=== PATIENT | female | born 1975 | race Caucasian/White ===

== ENCOUNTER 2017-10-26 00:59 | Emergency (ER) | payer MEDICAID, SELFPAY ==
[2017-10-26 01:02] VITALS: BP 104/85; PULSE 71; RESP 18; TEMP 36.6; O2SAT 99; BMI 29.2
--- NOTE | 2017-10-26 01:46 | CT_ITS ---
STUDY: CT ABDOMEN AND PELVIS WITH CONTRAST REASON FOR EXAM: Female, 42 years old. Lower quadrant pain since last night. RADIATION DOSAGE (If Supplied By Facility): CTDIvol = ( 19.94 ) mGy, DLP = ( 1023.27 ) mGycm TECHNIQUE: Transaxial images were obtained from the dome of the diaphragm to the symphysis pubis without oral contrast. 100ML ml of Isovue 300 contrast was administered. Sagittal and coronal images were reconstructed. Individualized dose optimization techniques were used for this CT. COMPARISON: None. FINDINGS: The visualized lung bases are unremarkable. The visualized portions of the heart are within normal limits. Normal liver. Normal gallbladder and extrahepatic biliary system. Normal spleen. Normal pancreas. The right adrenal gland is unremarkable. There are nodular changes in the left adrenal gland. Normal right kidney. Normal left kidney. Normal visualized stomach. There are nonspecific fluid-filled small bowel loops. There is no evidence of small bowel obstruction. There is fecal retention. The appendix is visualized and appears normal. Normal abdominal aorta. Normal inferior vena cava. Normal retroperitoneum. Normal urinary bladder. The uterus is retroverted and somewhat heterogeneous better evaluated by ultrasound. There is small amount of free fluid in the pelvis. There is a very small umbilical hernia containing fat. There are degenerative changes in the lower lumbar spine at the level of L5-S1. CT/Abdomen/Pelvis WITH Contrast IMPRESSION: Nonspecific fluid-filled small bowel loops without evidence of small bowel obstruction. No evidence of acute appendicitis. Retroverted somewhat heterogeneous uterus with small amount of free fluid in the pelvis. Pelvic ultrasound might be of value if clinically indicated. Electronically Signed: Karan Mchugh MD at 3:32 EDT Tel , Service support ,
--- NOTE | 2017-10-26 01:48 | ED.DCSUM_ITS ---
- ER Visit Summary Date of Service: 10/26/17 Chief Complaint: Stomach hurts History of Present Illness: The patient is a 42 F with right side abdominal pain. The pain started over her generalized right side and then migrated to her right lower quadrant starting yesterday evening at 5 PM. Pain is worse with moving and touch. No fever. No urinary symptoms. No HELICOPTER PILOT symptoms. She is finishing her menstrual period now. Never had this before. Physical Examination: Patient is afebrile and vital signs are unremarkable. She is alert and oriented. No acute distress. Heart regular. Abdomen tender in the right lower quadrant. No guarding or rebound. No CVA tenderness. Skin appears normal in color without jaundice or pallor. Test Results: We will check labs, urinalysis, and CT abdomen pelvis. Emergency Department Course and Treatment: Patient declined pain medicine while awaiting results. Hemoglobin 11.6. CMP, lipase, urinalysis, test all unremarkable. CT was done and showed fluid-filled small bowel loops without sign of obstruction. No sign of appendicitis. She does have a heterogenous retroverted uterus. I do not believe this is causing her symptoms and I did advise that she can follow -up as an outpatient for this. Patient required no pain medicine. She had no further or new symptoms. I believe she is appropriate for outpatient follow-up. I did advise her that things can change. Tests can change. If she has new or worsening symptoms, she should return for reevaluation. Otherwise call her doctor in the morning for follow-up. Treatment Plan: As above Disposition: Discharged Impression: 1. Right sided abdominal pain This note was generated with [employer] dictation software. It may contain incorrect words, spelling, and punctuation that were not noted in review of the chart prior to signing ED Disposition - Plan for ED Patient: Chief Complaint: Abd Pain Referrals: Mihir Glover MD [Primary Care Provider] -
[2017-10-26 02:12] LABS: Absolute Lymphocyte Count 2.83 X10^3/ul (0.83-4.51); Absolute Neutrophil Count 5.5 X10^3/uL (2.0-7.7); Basophil# 0.02 X10^3/uL; Basophil% 0.2 % (0-1); Eosinophil# 0.08 X10^3/uL; Eosinophils% 0.9 % (0-5); Hematocrit 34.9 % (37-47); Hemoglobin 11.6 g/dl (12.0-15.0); Lymphocyte # 2.83 X10^3/ul (4.0); Lymphocyte % 31.3 % (19-41); Mean Corp Hgb Conc 33.2 g/gl (32-36); Mean Corpuscular Hgb 27.7 pg (27.0-32.0); Mean Corpuscular Volume 83.3 fL (81-99); Mean Platelet Vol. 12.6 fl (6.2-12.0); Monocyte# 0.59 X10^3/uL; Monocyte% 6.5 % (0-10); Neutrophil # 5.52 X10^3/uL (2.7-7.7); POSITIVE COUNT NO; POSITIVE DIFFERENTIAL NO; POSITIVE MORPHOLOGY NO; Platelet Count 151 K/mm3 (150-450); RBC Distribution Width CV 14.5 % (11.6-14.6); Red Blood Count 4.19 M/mm3 (4.2-5.4); White Blood Count 9.1 K/mm3 (4.4-11.0)
[2017-10-26 02:16] LABS: Bacteria 0 SEEN /hpf (None Seen); Mucous, Urine 0 SEEN /hpf (<or=2+); Red Blood Cells-Urine 0 SEEN /hpf (0-5)
[2017-10-26 02:17] LABS: Color, Urine Yellow (Yellow); Glucose, Dipstick Normal (Normal); Leukocyte Esterase-Dipstick 25 /ul (Negative); Nitrite-Dipstick Negative (Negative); Occult Blood-Urine 25 /ul (Negative); Protein-Dipstick 15 mg/dl (Negative); Specific Gravity, Urine 1.025 (1.002-1.030); Urine Bilirubin Dipstick Negative (Negative); Urine Clarity Sl. Cloudy (Clear); Urine Urobilinogen 1 mg/dl (Normal)
[2017-10-26 02:19] LABS: Ketone-Dipstick 150 mg/dl (Negative)
[2017-10-26 02:23] LABS: AST(SGOT) 13 U/L (15-37); Alanine Aminotransfer ALT/SGPT 16 U/L (13-56); Albumin, Serum 3.3 g/dL (3.2-5.0); Alkaline Phosphatase 73 U/L (45-117); Anion Gap 6 (5-15); BUN 15 mg/dL (7-18); BUN/Creat Ratio 17.1 RATIO (10-20); Bilirubin, Direct 0.11 mg/dL (0.00-0.30); Calcium,Total 8.1 mg/dL (8.5-10.1); Chloride 109 mmol/L (98-107); Creatinine, Serum 0.88 mg/dL (0.55-1.02); EST Glomerular Filtration Rate 75 mL/min (>60); Est Glom Filt Rate - Afr Amer 91 mL/min (>60); Estimated Creatinine Clearance 80.99 ml/min; Globulin 2.9 g/dL (2.2-4.2); Glucose 76 mg/dL (74-106); Lipase 248 U/L (73-393); Potassium 3.7 mmol/L (3.5-5.1); Protein, Total 6.2 g/dL (6.4-8.2); Sodium Level 138 mmol/L (136-145)
[2017-10-26 02:23] LABS: Squamous Epithelial Cells - UA 10-25 SEEN /hpf (5-10); White Blood Cells 0-5 SEEN /hpf (0-5)
[2017-10-26 02:40] LABS: Pregnancy, Serum, hCG Quali. NEGATIVE Negative (0-9 Nonpreg)
--- NOTE | 2017-10-26 04:40 | ED.DEP ---
ED Disposition - Plan for ED Patient: Chief Complaint: Abd Pain Instructions: Abdominal Pain Referrals: Mihir Glover MD [Primary Care Provider] - Additional Instructions: Follow-up with your doctor as an outpatient for a heterogenous uterus on CT
[2017-10-26 04:48] VITALS: BP 101/78; PULSE 68; RESP 16; O2SAT 96
== END 2017-10-26 04:49 | disposition home or self-care (01) ==
LOC: ED 02:15
PROVIDERS: Emergency Provider Emergency Medicine; Family Provider Internal Medicine; PCP Internal Medicine
DX: R10.31 Right lower quadrant pain (principal); I45.9 Conduction disorder, unspecified; I95.9 Hypotension, unspecified; Z95.0 Presence of cardiac pacemaker; Z72.0 Tobacco use
CPT/HCPCS: 74177; 80048; 80076; 81001; 83690; 84703; 85025; 99282; Q9967; A4216

== ENCOUNTER 2017-11-15 22:17 | Emergency (ER) | payer MEDICAID, SELFPAY ==
[2017-11-15 22:22] VITALS: BP 97/68; PULSE 96; RESP 22; TEMP 36.8; O2SAT 99; BMI 27.9
--- NOTE | 2017-11-15 22:33 | EKG12_ITS ---
Test Reason : CP Blood Pressure : / mmHG Vent. Rate : 060 BPM Atrial Rate : 060 BPM P-R Int : 164 ms QRS Dur : 172 ms QT Int : 500 ms P-R-T Axes : 088 260 074 degrees QTc Int : 500 ms AV dual-paced rhythm Biventricular pacemaker detected Abnormal ECG Confirmed by TYE ZELAYA, AYSE ([id number]), film or videotape editor ZIYAD WALTON ([id number]) on 11/18/2017 1:24:02 PM Referred By: BAYRON Confirmed By:AYSE GAMBLE MD
--- NOTE | 2017-11-15 22:48 | ED.VISSUMM ---
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 She is experienced prior symptoms when she had panic attack. She has no known coronary artery disease. She denies history of PE or DVT. She has no risk factors for either. She denies headache, visual, ocular auditory symptoms. She denies fever, chills or night sweats. The chest discomfort is not pleuritic. She states it is a tight sensation. She denies nausea, vomiting or diarrhea. She denies dysuria, frequency, urgency or hematuria. She denies leg pain, swelling or discoloration. Please read written note for complete detail Physical Examination: Vital signs remarkable for respiratory 22. After I entered the room and asked questions she began to cry. When asked why she was crying she states she gets nervous and has history of anxiety attacks. Asked if this is somewhat to prior anxiety attacks and she responded yes. Head is atraumatic normocephalic. Pupils are equal round reactive. Extraocular muscles are intact. TMs are pearly white with landmarks noted. Nares patent with no drainage. Posterior pharynx without erythema or exudate. Uvula is midline. There is no dysphonia or dysphasia. Trachea is midline. There is no stridor with auscultation of the neck. Heart is regular without murmur, gallop or rub. S1 and S2 are normal. Lungs are clear to auscultation with good movement of air bilaterally. There is no asymmetry, swelling, discoloration, leg vein distention, palpable cords or tenderness along the distribution of the deep venous system. She is alert oriented. She does appear anxious and is tearful. Test Results: EKG reveals a AV dual-chamber paced rhythm with a rate of 60. Monitor reveals a paced rhythm with a rate of 60. Emergency Department Course and Treatment: Will obtain EKG to determine if there is any ischemic changes. Will treat with Ativan p.o. Treatment Plan: Observe and reevaluate. If suspicion that this represents a panic attack will discharge with appropriate home-going instructions Disposition: Discharge to home with family Impression: Chest pain secondary to anxiety attack This note was generated with [employer] dictation software. It may contain incorrect words, spelling, and punctuation that were not noted in review of the chart prior to signing ED Disposition - Plan for ED Patient: Disposition: Home or Assisted Living Chief Complaint: Chest Other Instructions: ED Panic Attack Referrals: Mihir Glover MD [Primary Care Provider] - As Needed Counseling,Center [GROUP OF PHYSICIANS] - 1-2 Days if not improving
[2017-11-15] MEDS: LORazepam 1 MG Tablet PO (22:51)
[2017-11-15 23:21] VITALS: PULSE 61; RESP 20; O2SAT 99
[2017-11-15 23:33] VITALS: RESP 18
== END 2017-11-15 23:34 | disposition home or self-care (01) ==
PROVIDERS: Emergency Provider Emergency Medicine; Family Provider Internal Medicine; PCP Internal Medicine
DX: F41.0 Panic disorder [episodic paroxysmal anxiety] (principal); I45.9 Conduction disorder, unspecified; E66.9 Obesity, unspecified; Z68.27 Body mass index [BMI] 27.0-27.9, adult; Z95.0 Presence of cardiac pacemaker; Z72.0 Tobacco use
CPT/HCPCS: 93005; 99284

== ENCOUNTER 2017-12-10 04:03 | Emergency (ER) | payer MEDICAID, SELFPAY ==
[2017-12-10 04:04] VITALS: BP 130/85; PULSE 68; RESP 14; TEMP 36.7; O2SAT 99; BMI 27.1
--- NOTE | 2017-12-10 04:17 | ED.VISSUMM ---
- ER Visit Summary Date of Service: 12/10/17 Chief Complaint: [] Patient's been having heart racing and night terror symptoms for the last 3 nights after she stopped smoking. She wakes up and feels trembling and gasping for air. She quit cold turkey. She is not take any nicotine replacement other than occasional vape History of Present Illness: The patient is a 42 F [] see above Physical Examination: [] Vital signs reviewed General: Well-nourished well-developed Head: Normocephalic atraumatic Eyes: Pupils equal round and reactive to light extraocular movements intact ENT: TMs clear no hemotympanum no trauma Neck: Nontender full range of motion Cardiovascular: Regular rate rhythm no murmurs normal S1-S2 Respiratory: No distress clear to auscultation bilaterally chest nontender Abdomen: Soft nontender nondistended normal bowel sounds no masses Back: Nontender no CVA tenderness Extremities: Nontender active range of motion ?4 extremities no trauma Skin: Normal color no trauma Neuro alert oriented cranial nerves II through XII intact normal strength sensation reflexes Test Results: [] Emergency Department Course and Treatment: [] Reassured. Given a dose of Benadryl. Will use the nicotine patch and discuss using medications with her doctor to help with the nicotine withdrawal Treatment Plan: [] Disposition: [] Impression: [] Nicotine withdrawal This note was generated with [employer] dictation software. It may contain incorrect words, spelling, and punctuation that were not noted in review of the chart prior to signing ED Disposition - Plan for ED Patient: Chief Complaint: General Illness Referrals: Mihir Glover MD [Primary Care Provider] -
--- NOTE | 2017-12-10 04:18 | ED.DEP ---
ED Disposition - Plan for ED Patient: Disposition: Home or Assisted Living Chief Complaint: General Illness Instructions: Coping with Smoking Withdrawal Referrals: Mihir Glover MD [Primary Care Provider] -
[2017-12-10] MEDS: DiphenhydrAMINE 25 MG Capsule 50 MG PO (04:41)
[2017-12-10 04:44] VITALS: RESP 16
== END 2017-12-10 04:44 | disposition home or self-care (01) ==
LOC: ED 04:27
PROVIDERS: Emergency Provider Emergency Medicine; Family Provider Internal Medicine; PCP Internal Medicine
DX: F17.203 Nicotine dependence unspecified, with withdrawal (principal)
CPT/HCPCS: 99283

== ENCOUNTER 2018-05-01 21:59 | Emergency (ER) | payer MEDICAID, SELFPAY ==
[2018-05-01 22:00] VITALS: BP 122/70; PULSE 70; RESP 18; TEMP 36.6; O2SAT 97; BMI 30.5
--- NOTE | 2018-05-01 23:22 | ED.DCSUM_ITS ---
- ER Visit Summary Date of Service: 05/01/18 Chief Complaint: Vomiting History of Present Illness: The patient is a 42 F patient reports that she broke her right ring finger this morning. [facility]. She reports that approximately an hour and a half after taking the Ultram she began vomiting. States that she has vomited 3 times. No blood in her emesis. No diarrhea. No abdominal pain. Patient denies sick contacts. Has not been camping out of the country. No possible bad food exposure. Does not drink well water. No recent antibiotic use. Physical Examination: Vitals: Stable. Afebrile. General: Well-nourished and well-developed. Head: Normocephalic atraumatic. Neck: Supple, no lymphadenopathy. No JVD. Nontender. Cardiovascular: Regular rate and rhythm. No murmurs. Respiratory: No respiratory distress. Clear to auscultation bilaterally. Abdominal: Soft, nontender, nondistended, normal bowel sounds. No guarding, rebound, or peritoneal signs. Back: Nontender. Extremities: Contusion, soft tissue swelling, and severe tenderness palpation over the right ring finger DIP joint. She is neurovascular intact distal this. Skin: Normal color, no rash. Neurologic: Alert and oriented ?3. Cranial nerves II through XII are intact. Normal strength and sensation. Psych: Normal affect. Emergency Department Course and Treatment: Patient was treated with Zofran. She had a new aluminum foam splint placed. She refused pain medications. Treatment Plan: Patient will be discharged with Zofran. Instructed to ice the area. Use Tylenol and/or ibuprofen for pain. Follow-up with your primary care physician 1-2 days if her vomiting is not improved. Follow-up with her orthopedic surgeon she was referred to in 1 week for another exam. Return to the emergency department for any worsening symptoms. Disposition: To home in improved and stable condition. Impression: 1. Vomiting from Ultram. 2. Right ring finger distal phalanx fracture. This note was generated with [employer] dictation software. It may contain incorrect words, spelling, and punctuation that were not noted in review of the chart prior to signing ED Disposition - Plan for ED Patient: Disposition: Home or Assisted Living Chief Complaint: Nausea/Vomiting Instructions: ED Nausea Vomiting Prescriptions: Ondansetron [Zofran Odt] 4 mg PO Q8H PRN PRN #10 tablet PRN Reason: Nausea Referrals: Mihir Glover MD [Primary Care Provider] - 1-2 Days if not improving
[2018-05-01] MEDS: Ondansetron ODT 4 MG Tablet PO (23:30)
[2018-05-01 23:38] VITALS: RESP 16
--- NOTE | 2018-05-01 23:39 | ED.RN ---
HOME PACK OF ZOFRAN GIVEN PER MD ORDER. REVIEWED D/C INSTRUCTIONS, FOLLOW UP CARE, PRESCRIPTIONS, AND S/S THAT WOULD WARRANT A RETURN TO THE ED WITH PT. PT VERBALIZED AN UNDERSTANDING AND DENIES FURTHER QUESTIONS FOR THIS RN. PT SKIN P/W/D, RESP EVEN AND UNLABORED, PT A&O X 3, NO DISTRESS NOTED. PT AMBULATED OUT OF ED, GAIT STEADY.
== END 2018-05-01 23:53 | disposition home or self-care (01) ==
LOC: ED 23:53
PROVIDERS: Emergency Provider Emergency Medicine; Family Provider Internal Medicine; PCP Internal Medicine
DX: R11.10 Vomiting, unspecified (principal); T40.4X5A Adverse effect of other synthetic narcotics, initial encounter; S62.634A Displaced fracture of distal phalanx of right ring finger, initial encounter for closed fracture; X58.XXXA Exposure to other specified factors, initial encounter; Z87.891 Personal history of nicotine dependence
CPT/HCPCS: 99283

== ENCOUNTER 2018-05-07 16:56 | Emergency (ER) | payer MEDICAID, SELFPAY ==
[2018-05-07 16:58] VITALS: BP 129/77; PULSE 86; RESP 16; TEMP 35.9; O2SAT 100; BMI 29.9
--- NOTE | 2018-05-07 17:13 | EKG12_ITS ---
Test Reason : ANXIETY Blood Pressure : / mmHG Vent. Rate : 062 BPM Atrial Rate : 062 BPM P-R Int : 140 ms QRS Dur : 172 ms QT Int : 498 ms P-R-T Axes : 054 248 052 degrees QTc Int : 505 ms Atrial-sensed ventricular-paced rhythm Biventricular pacemaker detected Abnormal ECG Confirmed by TYE ZELAYA, AYSE ([id number]), electronic news gathering editor ZIYAD WALTON ([id number]) on 05/09/2018 12:46:25 PM Referred By: DC Confirmed By:AYSE GAMBLE MD
[2018-05-07] MEDS: LORazepam 1 MG Tablet PO (17:32)
--- NOTE | 2018-05-07 18:18 | ED.VISSUMM ---
- ER Visit Summary Date of Service: 05/07/18 Chief Complaint: Panic attack History of Present Illness: The patient is a 42 F with a history of panic and anxiety. She presents with increasing anxiety today. It seems to happen when she was exercising. She has been depressed and gaining weight because she is eating more. She felt that she needed to work out today. She was running and felt her heart racing. She had a heart rate in the 130s. She felt palpitations and her heart racing. She stopped to rest, and she did not feel like her heart was returning to normal rate as fast as it should normally. She began breathing fast and her lips were numb and she had some tingling in her extremities. This happened within an hour prior to arrival. There was also noted that the patient has a history of third-degree AV block and has a defibrillator. She did not feel the defibrillator fire. Denies chest pain. Physical Examination: Afebrile and vital signs are normal. The patient is tearful and appears anxious. HEENT exam grossly unremarkable. Heart regular rate and rhythm. Lungs clear. Skin normal. Test Results: EKG showed a paced rhythm at a rate of 62. Emergency Department Course and Treatment: Patient symptoms are likely secondary to panic. She has a history of this. She was hyperventilating. It sounds like her heart rate was appropriate for her exercising. It is currently normal. I did check an EKG and it was unremarkable. She was treated with Ativan. On reevaluation, she is still somewhat tearful and anxious, but seems better. She would like to go home. I believe this is reasonable. She has Klonopin at home and will use it as needed. I advised that she could follow-up with her counselor for long-term management of panic, anxiety, and depression. There are other medical and nonmedical treatments. I also advised the patient that given that she had some palpitations while exercising, she should follow-up with her heart doctor. Return right away for any new or worsening issues. She had a recent echo and other cardiac testing which was unremarkable, and I do not believe she needs emergency admission. Treatment Plan: As above Disposition: Discharge Impression: 1. Panic attack This note was generated with [employer] dictation software. It may contain incorrect words, spelling, and punctuation that were not noted in review of the chart prior to signing ED Disposition - Plan for ED Patient: Chief Complaint: Anxiety Referrals: Mihir Glover MD [Primary Care Provider] -
--- NOTE | 2018-05-07 18:24 | ED.DEP ---
ED Disposition - Plan for ED Patient: Chief Complaint: Anxiety Instructions: ED Panic Attack Referrals: Mihir Glover MD [Primary Care Provider] -
[2018-05-07] MEDS: hydrOXYzine PAM 25 MG Capsule PO (19:00)
[2018-05-07 19:02] VITALS: BP 120/75; PULSE 66; RESP 18; O2SAT 98
== END 2018-05-07 19:04 | disposition home or self-care (01) ==
LOC: ED 17:18
PROVIDERS: Emergency Provider Emergency Medicine; Family Provider Internal Medicine; PCP Internal Medicine
DX: F41.0 Panic disorder [episodic paroxysmal anxiety] (principal); I44.2 Atrioventricular block, complete; Z95.810 Presence of automatic (implantable) cardiac defibrillator; Z87.891 Personal history of nicotine dependence
CPT/HCPCS: 93005; 99283

== ENCOUNTER 2018-11-09 13:12 | Emergency (ER) | payer MEDICAID, SELFPAY ==
[2018-11-09 13:13] VITALS: BP 144/86; PULSE 117; RESP 16; TEMP 36.8; O2SAT 98; BMI 29.0
--- NOTE | 2018-11-09 13:38 | EKG12_ITS ---
Test Reason : ABDOMINAL/CHEST PAIN Blood Pressure : / mmHG Vent. Rate : 111 BPM Atrial Rate : 111 BPM P-R Int : 128 ms QRS Dur : 166 ms QT Int : 406 ms P-R-T Axes : 066 252 070 degrees QTc Int : 552 ms Poor data quality, interpretation may be adversely affected Atrial-sensed ventricular-paced rhythm Biventricular pacemaker detected Abnormal ECG Confirmed by SERINA MCDONALD ([id number]), purchasing expeditor ALLA VALENTIN ([id number]) on 11/14/2018 12:57:39 PM Referred By: MIGUEL Confirmed By:SERINA MCDONALD
[2018-11-09] MEDS: 0.9% Normal Saline 1,000 ML 150 ML IV (13:50)
[2018-11-09] MEDS: LORazepam 2 MG/ML Syringe 0.5 MG IV ×2 (13:50→15:46)
[2018-11-09 13:55] LABS: Absolute Lymphocyte Count 1.54 X10^3/ul (0.83-4.51); Basophil# 0.02 X10^3/uL; Basophil% 0.3 % (0-1); Eosinophil# 0.03 X10^3/uL; Eosinophils% 0.4 % (0-5); Hematocrit 38.6 % (37-47); Hemoglobin 12.8 g/dl (12.0-15.0); Lymphocyte # 1.54 X10^3/ul (4.0); Mean Corp Hgb Conc 33.2 g/gl (32-36); Mean Corpuscular Hgb 26.9 pg (27.0-32.0); Mean Corpuscular Volume 81.3 fL (81-99); Mean Platelet Vol. 12.1 fl (6.2-12.0); Monocyte# 0.36 X10^3/uL; Monocyte% 5.1 % (0-10); Neutrophil # 5.04 X10^3/uL (2.7-7.7); Neutrophil % 72.1 % (47-70); Platelet Count 184 K/mm3 (150-450); RBC Distribution Width CV 14.3 % (11.6-14.6); RBC Distribution Width SD 42.5 fl (35.1-43.9); Red Blood Count 4.75 M/mm3 (4.2-5.4)
[2018-11-09 13:58] LABS: POSITIVE COUNT NO; POSITIVE DIFFERENTIAL NO; POSITIVE MORPHOLOGY NO
[2018-11-09 14:03] LABS: Internal QC Validated? YES +Cl - CLEAR BKGD; Pregnancy, Serum, hCG Quali. NEGATIVE Negative
[2018-11-09 14:11] LABS: AST(SGOT) 15 U/L (15-37); Alanine Aminotransfer ALT/SGPT 19 U/L (13-56); Albumin, Serum 3.6 g/dL (3.2-5.0); Alkaline Phosphatase 70 U/L (45-117); Anion Gap 7 (5-15); BUN 14 mg/dL (7-18); BUN/Creat Ratio 13.9 RATIO (10-20); Bilirubin, Direct 0.08 mg/dL (0.00-0.30); Calcium,Total 8.9 mg/dL (8.5-10.1); Chloride 107 mmol/L (98-107); Creatinine, Serum 1.01 mg/dL (0.55-1.02); EST Glomerular Filtration Rate 64 mL/min (>60); Est Glom Filt Rate - Afr Amer 77 mL/min (>60); Estimated Creatinine Clearance 75.06 ml/min; Globulin 3.3 g/dL (2.2-4.2); Glucose 123 mg/dL (74-106); Lipase 184 U/L (73-393); Potassium 3.6 mmol/L (3.5-5.1); Protein, Total 6.9 g/dL (6.4-8.2); Sodium Level 138 mmol/L (136-145)
[2018-11-09 14:35] VITALS: BP 123/83; PULSE 73; RESP 13; O2SAT 100
[2018-11-09 15:37] VITALS: BP 124/80; PULSE 72; RESP 16; O2SAT 98
--- NOTE | 2018-11-09 15:45 | ED.DCSUM_ITS ---
- ER Visit Summary Date of Service: 11/09/18 Chief Complaint: Epigastric pain History of Present Illness: The patient is a 43 F with epigastric burning after eating Portuguese food 3 days ago. Her pain is not improved with Tums or with Pepto. She states this has triggered her anxiety and she is having panic attacks. Past history is significant for third-degree block as a child and she does have a pacer. Physical Examination: Vital signs remarkable only for heart rate of 117. Patient sitting up on the side of the bed, tearful and anxious. Head and neck examination was unremarkable. Heart is tachycardic and regular. Lung sounds are clear. Abdomen is soft with minimal epigastric tenderness. No guarding or rebound. Test Results: EKG reveals patient spikes with a heart rate of 111. CBC is normal. Chemistry studies unremarkable. LFTs and lipase normal. test negative. Emergency Department Course and Treatment: Patient given IV fluids along with Ativan and Pepcid. On repeat evaluation she states this took the edge of her anxiety but she still feels quite anxious. She is given a second dose of Ativan. On repeat evaluation patient does feel significantly improved. She has Klonopin at home that she will continue. We will also start her on Pepcid at home. She has a follow-up appointment scheduled with her doctor's office on the . Treatment Plan: [] Disposition: Discharge Impression: 1. Gastritis 2. Anxiety This note was generated with [employer] dictation software. It may contain incorrect words, spelling, and punctuation that were not noted in review of the chart prior to signing ED Disposition - Plan for ED Patient: Disposition: Home or Assisted Living Instructions: Panic Attack, GASTRITIS vs. ULCER Prescriptions: Famotidine [Pepcid] 20 mg PO BID #28 tablet Referrals: Mihir Glover MD [Primary Care Provider] - Keep Emili appointment
== END 2018-11-09 16:20 | disposition home or self-care (01) ==
PROVIDERS: Emergency Provider Emergency Medicine; Family Provider Internal Medicine; PCP Internal Medicine
DX: K29.70 Gastritis, unspecified, without bleeding (principal); F41.9 Anxiety disorder, unspecified; Z87.891 Personal history of nicotine dependence
CPT/HCPCS: 80048; 80076; 83690; 84703; 85025; 93005; 96361; 96374; 96375; 96376; 99283; J7030; A4216; J3490

== ENCOUNTER 2018-12-08 18:55 | Emergency (ER) | payer MEDICAID, SELFPAY ==
[2018-12-08 18:56] VITALS: BP 126/88; PULSE 89; RESP 19; TEMP 36.7; O2SAT 100; BMI 29.4
--- NOTE | 2018-12-08 19:09 | ED.VISSUMM ---
- ER Visit Summary Date of Service: 12/08/18 Chief Complaint: Chest pain History of Present Illness: The patient is a 43 F presenting with chest pain. Patient states this started around 5 PM. She initially thought it was a panic attack and took Klonopin. She states this typically improves her symptoms within 1/2-hour but the symptoms have been present for the past 2 hours. She states she is under a lot of stress and her friend is in the hospital. She denies suicidal ideation. Also complains of tingling in both arms. She has a history of third-degree block and has defibrillator/pacemaker. She denies other complaints. Physical Examination: Vitals are stable. Patient is afebrile. Alert no acute distress. HEENT exam is unremarkable. Neck is supple. Lungs are clear and equal bilaterally. Heart is regular rate and rhythm. Abdomen is soft nontender nondistended. Extremities are unremarkable. Skin is warm and dry. No focal neurologic deficit. Anxious, tearful Remainder of exam is unremarkable. Emergency Department Course and Treatment: Patient given aspirin, Ativan. EKG is paced at rate of 85. CBC, chemistries unremarkable. Troponin is negative. D-dimer negative. Chest x-ray shows no acute process. Repeat troponin is negative. On reevaluation, patient is resting comfortably. Advised to follow up with her primary care physician and the counseling center. Advised to return to ED if worsening complaints. Disposition: Discharge Home Impression: Atypical chest pain This note was generated with [employer] dictation software. It may contain incorrect words, spelling, and punctuation that were not noted in review of the chart prior to signing ED Disposition - Plan for ED Patient: Instructions: CHEST PAIN, Uncertain Cause Referrals: Mihir Glover MD [Primary Care Provider] -
--- NOTE | 2018-12-08 19:18 | RAD_ITS ---
STUDY: X-RAY CHEST REASON FOR EXAM: Female, 43 years old. Chest pain TECHNIQUE: Single AP portable view of the chest. COMPARISON: Prior study of 03/20/2015 FINDINGS: A left-sided pacemaker is present. gear straightener leads are seen. The lungs are clear and expanded. There is no demonstrated pleural abnormality. Normal size heart. Normal mediastinum and ginger. Normal visualized pulmonary arteries. Normal visualized aortic arch and descending thoracic aorta. Normal visualized thoracic spine. Normal visualized ribs, clavicles, and shoulders. There is no demonstrated abnormality of the visualized soft tissue structures of the upper abdomen. RAD/Chest 1 View (Portable) IMPRESSION: No acute cardiopulmonary disease process is seen. Chest findings are stable in the interval. Electronically Signed: Jesus Castellon MD at 19:39 EDT , Service support ,
--- NOTE | 2018-12-08 19:18 | EKG12_ITS ---
Test Reason : CP Blood Pressure : / mmHG Vent. Rate : 085 BPM Atrial Rate : 085 BPM P-R Int : 140 ms QRS Dur : 176 ms QT Int : 452 ms P-R-T Axes : 070 253 071 degrees QTc Int : 537 ms Atrial-sensed ventricular-paced rhythm Biventricular pacemaker detected Abnormal ECG Confirmed by DANA ZELAYA, KIMI ([id number]), social media editor ZIYAD WALTON ([id number]) on 12/12/2018 1:20:18 PM Referred By: ED PHYSICIAN Confirmed By:KIMI CORTEZ MD
[2018-12-08] MEDS: LORazepam 1 MG Tablet PO (19:23)
[2018-12-08 19:26] LABS: Absolute Lymphocyte Count 2.42 X10^3/uL (0.83-4.51); Absolute Neutrophil Count 6.6 X10^3/uL (2.0-7.7); Basophil# 0.04 X10^3/uL; Basophil% 0.4 % (0-1); Eosinophil# 0.05 X10^3/uL; Eosinophils% 0.5 % (0-5); Hematocrit 39.2 % (37-47); Hemoglobin 12.8 g/dL (12.0-15.0); Lymphocyte # 2.42 X10^3/ul (4.0); Lymphocyte % 24.8 % (19-41); Mean Corp Hgb Conc 32.7 g/dL (32-36); Mean Corpuscular Hgb 27.1 pg (27.0-32.0); Mean Corpuscular Volume 83.1 fL (81-99); Mean Platelet Vol. 12.8 fl (6.2-12.0); Monocyte# 0.63 X10^3/uL; Monocyte% 6.5 % (0-10); NRBC Flagged by Analyzer 0 % (0-5); Neutrophil # 6.59 X10^3/uL (2.7-7.7); Neutrophil % 67.5 % (47-70); Platelet Count 219 K/mm3 (150-450); RBC Distribution Width CV 14.2 % (11.6-14.6); Red Blood Count 4.72 M/mm3 (4.2-5.4); White Blood Count 9.8 K/mm3 (4.4-11.0)
[2018-12-08 19:43] LABS: D-Dimer Quantitative (DVT/PE) 0.45 FEU/ug/m (0.27-0.49)
[2018-12-08 19:51] LABS: Anion Gap 7 (5-15); BUN 13 mg/dL (7-18); Calcium,Total 8.7 mg/dL (8.5-10.1); Chloride 108 mmol/L (98-107); Creatinine, Serum 1.08 mg/dL (0.55-1.02); EST Glomerular Filtration Rate 59 mL/min (>60); Est Glom Filt Rate - Afr Amer 71 mL/min (>60); Estimated Creatinine Clearance 70.19 ml/min; Glucose 101 mg/dL (74-106); Potassium 3.5 mmol/L (3.5-5.1); Sodium Level 139 mmol/L (136-145)
[2018-12-08 20:33] VITALS: BP 98/79; PULSE 67; RESP 18; O2SAT 99
[2018-12-08 21:02] VITALS: BP 107/81; PULSE 69; RESP 16; O2SAT 99
--- NOTE | 2018-12-08 22:42 | ED.DEP ---
ED Disposition - Plan for ED Patient: Instructions: CHEST PAIN, Uncertain Cause Referrals: Mihir Glover MD [Primary Care Provider] -
[2018-12-08 23:04] VITALS: BP 105/84; PULSE 66; RESP 16; TEMP 36.6
== END 2018-12-08 23:11 | disposition home or self-care (01) ==
LOC: ED 19:32
PROVIDERS: Emergency Provider Emergency Medicine; Family Provider Internal Medicine; PCP Internal Medicine
DX: R07.89 Other chest pain (principal); Z95.0 Presence of cardiac pacemaker
CPT/HCPCS: 71045; 80048; 84484; 85025; 85379; 93005; 99285; A4216

== ENCOUNTER 2018-12-12 13:11 | Emergency (ER) | payer MEDICAID, SELFPAY ==
[2018-12-12 13:12] VITALS: BP 132/85; PULSE 98; RESP 20; TEMP 36.4; BMI 28.5
[2018-12-12 13:52] LABS: Absolute Lymphocyte Count 1.98 X10^3/uL (0.83-4.51); Absolute Neutrophil Count 5.9 X10^3/uL (2.0-7.7); Basophil# 0.03 X10^3/uL; Basophil% 0.4 % (0-1); Eosinophil# 0.02 X10^3/uL; Eosinophils% 0.2 % (0-5); Hematocrit 39.8 % (37-47); Hemoglobin 13.2 g/dL (12.0-15.0); Lymphocyte # 1.98 X10^3/ul (4.0); Lymphocyte % 23.7 % (19-41); Mean Corp Hgb Conc 33.2 g/dL (32-36); Mean Corpuscular Hgb 27.3 pg (27.0-32.0); Mean Corpuscular Volume 82.2 fL (81-99); Mean Platelet Vol. 12.4 fl (6.2-12.0); Monocyte# 0.39 X10^3/uL; Monocyte% 4.7 % (0-10); NRBC Flagged by Analyzer 0 % (0-5); Neutrophil # 5.93 X10^3/uL (2.7-7.7); Neutrophil % 70.8 % (47-70); Platelet Count 198 K/mm3 (150-450); RBC Distribution Width CV 13.9 % (11.6-14.6); RBC Distribution Width SD 41.1 fl (35.1-43.9); Red Blood Count 4.84 M/mm3 (4.2-5.4); White Blood Count 8.4 K/mm3 (4.4-11.0)
[2018-12-12 14:00] LABS: Internal QC Validated? YES +Cl - CLEAR BKGD; Pregnancy, Serum, hCG Quali. NEGATIVE Negative
[2018-12-12 14:03] LABS: Anion Gap 8 (5-15); BUN 19 mg/dL (7-18); BUN/Creat Ratio 20.6 RATIO (10-20); Calcium,Total 8.7 mg/dL (8.5-10.1); Chloride 108 mmol/L (98-107); Creatinine, Serum 0.92 mg/dL (0.55-1.02); EST Glomerular Filtration Rate 71 mL/min (>60); Est Glom Filt Rate - Afr Amer 85 mL/min (>60); Glucose 100 mg/dL (74-106); Sodium Level 138 mmol/L (136-145)
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
[2018-12-12 14:13] LABS: Amphetamine Urine VISTA NEGATIVE (<1000 ng/mL); Barbiturate Urine VISTA NEGATIVE (< 200 ng/mL); Benzodiazepine Urine VISTA NEGATIVE (< 200 ng/mL); Cocaine Urine VISTA NEGATIVE (< 300 ng/mL); Ecstacy Urine VISTA NEGATIVE (< 500 ng/mL); Methadone Urine VISTA NEGATIVE (< 300 ng/mL); PCP Urine VISTA NEGATIVE (< 25 ng/mL); THC Urine VISTA NEGATIVE (< 50 ng/mL); Vista UDS pH Range 5
[2018-12-12 14:17] VITALS: RESP 15
--- NOTE | 2018-12-12 14:35 | EKG12_ITS ---
Test Reason : [facility] [place] Pressure : / mmHG Vent. Rate : 067 BPM Atrial Rate : 067 BPM P-R Int : 138 ms QRS Dur : 170 ms QT Int : 464 ms P-R-T Axes : 065 244 066 degrees QTc Int : 490 ms Atrial-sensed ventricular-paced rhythm Biventricular pacemaker detected Abnormal ECG Confirmed by TYE ZELAYA, AYSE ([id number]), editorial director ALLA VALENTIN ([id number]) on 12/14/2018 10:10:18 AM Referred By: Confirmed By:AYSE GAMBLE MD
[2018-12-12 15:04] LABS: AST(SGOT) 13 U/L (15-37); Alanine Aminotransfer ALT/SGPT 22 U/L (13-56); Albumin, Serum 3.8 g/dL (3.2-5.0); Alkaline Phosphatase 80 U/L (45-117); Bilirubin, Direct 0.13 mg/dL (0.00-0.30); Globulin 3.5 g/dL (2.2-4.2); Protein, Total 7.3 g/dL (6.4-8.2)
[2018-12-12 15:13] LABS: Thyroid Stim Hormone (TSH) 1.17 uIU/mL (0.358-3.74)
--- NOTE | 2018-12-12 15:14 | ED.VISSUMM ---
- ER Visit Summary Date of Service: 12/12/18 Chief Complaint: Anxiety and suicidal ideation History of Present Illness: The patient is a 43 F with me that she has been living with anxiety about her health care which has been inducing panic attacks. Reported history of depression bipolar and schizophrenia. She states that her symptoms have been worse for the past month. 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 She currently sees cardiology at [facility]. She states that anytime she feels anything different with her body she is worried that something is going to happening to her. She tells me her last echocardiogram showed an ejection fraction of 50%. Former smoker. States that she has a prescription for Klonopin which she filled 2014 but did not need to use it until recently. States she had a plan to come here and by that she means she had to get the right state of mind. She states she is got to the point where she cannot tolerate nothing like this anymore to fall asleep and not wake up. She states she has a plan to cut herself. Physical Examination: Afebrile vital signs stable Gen: Well-nourished well-developed Head: Normocephalic atraumatic Eyes: Perrl EOMI ENT: TMs clear no rhinorrhea moist mucous membranes Neck: Supple no lymphadenopathy no JVD nontender CVS: Regular rate rhythm no murmurs normal S1-S2 Respiratory: No distress clear to auscultation bilaterally chest nontender Abdomen: Soft nontender nondistended normal bowel sounds no masses Back: Nontender Extremity: Nontender no edema Skin: Normal color no rash Neuro: alert orientated ?3 CN II-XII intact normal strength sensation reflexes gait cerebellar Psych: Pressured and rapid speech. Tearful. Admits to suicidal ideation. Test Results: Psychiatric screening labs were obtained. These were negative. EKG showed an atrially sensed ventricularly paced rhythm at a rate of 67. Emergency Department Course and Treatment: Patient is medically cleared for psychiatric evaluation. Patient was assessed by director of social media marketing care who agrees the patient should be transferred for psychiatric evaluation and care. We are currently working on a disposition home Impression: 1. Suicidal ideation 2. Anxiety about health care 3. Major depressive disorder This note was generated with Encore Interactiveation software. It may contain incorrect words, spelling, and punctuation that were not noted in review of the chart prior to signing ED Disposition - Plan for ED Patient: Referrals: Mihir Glover MD [Primary Care Provider] -
--- NOTE | 2018-12-12 15:42 | CM.ED ---
Social Work Dr. Adorno reporting that patient is medically cleared. Telephone call to [facility], Breanna. This social work lecturer making referral. Breanna confirming that [facility] is in-network with patient insurance. Pending approval at this time. Ted Estrada MSW, KARIME
[2018-12-12 16:04] VITALS: RESP 16
--- NOTE | 2018-12-12 17:06 | CM.ED ---
[facility]. Nurse to Nurse: [phone]. Admitting Doctor: Dr. Franco. Patient to admit to unit ABU. Notified MARISOL Orellana, Dr. Dixon and patient. All agreeable to plan. [place] to set up transportation. Ted CASTILLO, KARIME
[2018-12-12] MEDS: LORazepam 1 MG Tablet PO (17:08)
[2018-12-12 17:18] VITALS: BP 124/78; PULSE 63; RESP 16; O2SAT 99
== END 2018-12-12 18:13 ==
LOC: ED 14:13
PROVIDERS: Emergency Provider Emergency Medicine; Family Provider Internal Medicine; PCP Internal Medicine
DX: R45.851 Suicidal ideations (principal); F41.8 Other specified anxiety disorders; F31.9 Bipolar disorder, unspecified; Q24.6 Congenital heart block; Z95.810 Presence of automatic (implantable) cardiac defibrillator; Z87.891 Personal history of nicotine dependence
CPT/HCPCS: 80048; 80076; 80307; 80320; 84443; 84484; 84703; 85025; 93005; 99284; G0480

== ENCOUNTER 2018-12-27 01:04 | Emergency (ER) | payer MEDICAID, SELFPAY ==
[2018-12-27 01:05] VITALS: BP 131/86; PULSE 80; RESP 18; TEMP 36.8; O2SAT 97; BMI 27.3
--- NOTE | 2018-12-27 01:21 | ED.VIS.GEN ---
History of Present Illness Chief Complaint: Weakness Informant: Patient Narrative: She has stated that she is been feeling intermittent lightheadedness for the last few weeks. She thinks it might be from the hydroxyzine that was given to her at the psychiatric facility. She was therefore suicidal thoughts and anxiety. She was seen in our emergency department and transferred there on the fifth of this month. She had negative work-up as far as lab work at that time. She was seen for chest pain on December 08 with a negative work-up as well. She stated she feels like her arms and legs are heavier than the normal they are. Sometimes she has some achiness in her arms and legs as well. She has not followed up with her family doctor yet. She stated she is not taking any current medication. She does have a history of bipolar schizophrenia. Denies any chest pain shortness of breath or other symptoms. Past Medical History - Allergies and Home Meds Allergies/Adverse Reactions: Allergies tramadol Allergy (Verified 12/08/18 18:56) Nausea naproxen Adverse Reaction (Verified 12/08/18 18:56) Other paroxetine HCl [From Paxil] Adverse Reaction (Verified 12/08/18 18:56) Other Primary Care Physician: Mihir Glover MD [Primary Care Provider] - Prior records reviewed: Yes Past Medical History: - - Anxiety depression Surgical History: - - Reviewed Smoking Status: Former smoker Alcohol: None Drugs: None Review of Systems General: Reports: Malaise. Denies: Chills, Fever, Sweats Eyes: Denies: Visual changes - bilaterally, Diplopia ENT: Denies: Rhinorrhea, Sore throat Cardiovascular: Denies: Chest pain, Palpitations Respiratory: Denies: Dyspnea, Cough, Dyspnea on exertion Gastrointestinal: Denies: Abdominal pain, Nausea, Vomiting, Diarrhea, Melena, Hematochezia Genitourinary: Denies: Dysuria, Hematuria, Frequency Musculoskeletal: Denies: Back pain, Extremity Pain Skin: Denies: Rash, Wounds Neurological: Reports: Weakness. Denies: Headache, Numbness Physical Exam Vital Signs/Narrative: Vital Signs Temp Pulse Resp BP Pulse Ox 12/27/18 01:05 98.2 F 80 18 131/86 H 97 General: Well nourished, Well developed, No Acute Distress Head: Normocephalic, Atraumatic Eyes: Perrl, EOMI ENT: Moist mucous membranes, No rhinorrhea Neck: Supple, Nontender Cardiovascular: Regular rate, Regular rhythm, No murmurs Respiratory: No distress, CTA bilaterally, Chest nontender Abdomen: Soft, Nontender, Nondistended, Normal bowel sounds Back: Nontender, Normal Inspection Extremities: Nontender, No edema Skin: Normal color, No rash Neurological: Alert, Oriented x3, Cranial nerves II-XII grossly intact, Normal Strength, Normal Sensation Psychological: Normal affect, Normal Mood Diagnostic/Tx/Re-eval - Medical Decision Making Resting comfortably. No physical exam findings that are concerning. She is recently had a negative cardiac work-up as well as psychiatric clearance. Repeat lab work obtained. EKG shows atrial sensed ventricular paced rhythm at a rate of 65 without any acute changes from previous EKG. work shows a mildly low potassium and hemoglobin. Nonspecific and I do not feel these are causing her symptoms. At this time I feel she can follow-up with her family doctor. I do not feel she needs a further work-up. ED Disposition - Plan for ED Patient: Disposition: Home or Assisted Living Diagnosis: Lightheadedness Instructions: WEAKNESS, Unk Cause Referrals: iMhir Glover MD [Primary Care Provider] -
--- NOTE | 2018-12-27 01:24 | EKG12_ITS ---
Test Reason : Blood Pressure : / mmHG Vent. Rate : 065 BPM Atrial Rate : 065 BPM P-R Int : 142 ms QRS Dur : 174 ms QT Int : 480 ms P-R-T Axes : 078 254 064 degrees QTc Int : 499 ms Atrial-sensed ventricular-paced rhythm Biventricular pacemaker detected Abnormal ECG Confirmed by TYE ZELAYA, AYSE ([id number]), research editor ALLA VALENTIN ([id number]) on 12/29/2018 1:03:53 PM Referred By: RENNY Confirmed By:AYSE GAMBLE MD
[2018-12-27 01:33] LABS: Absolute Lymphocyte Count 2.49 X10^3/uL (0.83-4.51); Absolute Neutrophil Count 4.4 X10^3/uL (2.0-7.7); Basophil# 0.03 X10^3/uL; Basophil% 0.4 % (0-1); Eosinophil# 0.07 X10^3/uL; Eosinophils% 0.9 % (0-5); Hematocrit 36.8 % (37-47); Hemoglobin 11.8 g/dL (12.0-15.0); Lymphocyte # 2.49 X10^3/ul (4.0); Lymphocyte % 33.2 % (19-41); Mean Corp Hgb Conc 32.1 g/dL (32-36); Mean Corpuscular Volume 84.2 fL (81-99); Mean Platelet Vol. 11.9 fl (6.2-12.0); Monocyte# 0.48 X10^3/uL; Monocyte% 6.4 % (0-10); NRBC Flagged by Analyzer 0 % (0-5); Neutrophil % 58.8 % (47-70); Platelet Count 176 K/mm3 (150-450); RBC Distribution Width CV 14.1 % (11.6-14.6); RBC Distribution Width SD 43.2 fl (35.1-43.9); Red Blood Count 4.37 M/mm3 (4.2-5.4); White Blood Count 7.5 K/mm3 (4.4-11.0)
[2018-12-27 01:46] LABS: Anion Gap 5 (5-15); BUN 14 mg/dL (7-18); BUN/Creat Ratio 15.3 RATIO (10-20); Calcium,Total 8.2 mg/dL (8.5-10.1); Chloride 110 mmol/L (98-107); Creatinine, Serum 0.91 mg/dL (0.55-1.02); EST Glomerular Filtration Rate 71 mL/min (>60); Est Glom Filt Rate - Afr Amer 86 mL/min (>60); Estimated Creatinine Clearance 83.31 ml/min; Glucose 94 mg/dL (74-106); Potassium 3.6 mmol/L (3.5-5.1); Sodium Level 141 mmol/L (136-145)
== END 2018-12-27 01:59 | disposition home or self-care (01) ==
PROVIDERS: Emergency Provider Emergency Medicine; Family Provider Internal Medicine; PCP Internal Medicine
DX: R42 Dizziness and giddiness (principal); F41.9 Anxiety disorder, unspecified; Z87.891 Personal history of nicotine dependence
CPT/HCPCS: 36415; 80048; 85025; 93005; 99282

== ENCOUNTER 2019-10-26 19:56 | Emergency (ER) | payer MEDICAID, SELFPAY ==
[2019-10-26 19:57] VITALS: BP 153/81; PULSE 82; RESP 18; TEMP 36.5; O2SAT 99; BMI 29.2
--- NOTE | 2019-10-26 20:18 | CT_ITS ---
STUDY: CT BRAIN WITHOUT CONTRAST REASON FOR EXAM: Female, 44 years old. INTERMITTENT DIZZINESS X 2 MONTHS, LT EAR PULSING, MIGRAINES W/ AURA/VOMITING. RADIATION DOSAGE (If Supplied By Facility): CTDIvol = ( 44.99 ) mGy, DLP = ( 745.49 ) mGycm TECHNIQUE: Transaxial CT imaging of the brain was performed without administration of intravenous contrast material. Individualized dose optimization techniques were used for this CT. COMPARISON: CT head 03/20/2015 FINDINGS: Normal soft tissue structures. Normal calvarium. Normal size ventricles and extra-axial spaces for the patient''s age. Normal white matter tracts of the cerebral hemispheres. Normal basal ganglia and thalami. Normal brainstem. Normal cerebellum. There is no intracranial hemorrhage. There are no findings of an acute ischemic infarction. Normal visualized paranasal sinuses. There is no significant change. CT/Brain/Head without Contrast IMPRESSION: Normal unenhanced CT scan of the brain. No change. Electronically Signed: Augustine Go, at 21:24 EDT Tel , Service support ,
--- NOTE | 2019-10-26 20:30 | ED.VIS.GEN ---
History of Present Illness Chief Complaint: Dizziness Informant: Patient Onset: Days, Weeks Context: Gradual Onset Timing: Intermittent Current Severity: Moderate Maximum Severity: Moderate Narrative: The patient is a 44-year-old female with medical history significant for anxiety and PTSD the presents to the emergency department with vertiginous symptoms. Patient states for the past 2 months, she will have the sensation of motion. She states if she is near a body of water, turns her head quickly, or sees something blowing in the wind, she will get a sensation of motion. She thought that it may be because she was near menopause. She states over the past 2 days, she has had some ringing in her left ear. She is also had mild headaches. She does get nauseated with the symptoms, but has no nausea at baseline. She denies any fevers or chills. She denies any weight loss. She is otherwise been in her normal state of health. Prior similar symptoms: No Recent Illness/Hospitalization: No Past Medical History - Allergies and Home Meds Allergies/Adverse Reactions: Allergies tramadol Allergy (Verified 10/26/19 19:59) Nausea naproxen Adverse Reaction (Verified 10/26/19 19:59) Other paroxetine HCl [From Paxil] Adverse Reaction (Verified 10/26/19 19:59) Other Primary Care Physician: Justin Mak MD [STAFF PHYSICIAN] - Prior records reviewed: Yes Past Medical History: - - PTSD, anxiety Surgical History: - - Reviewed Smoking Status: Former smoker Review of Systems General: Denies: Chills, Fever, Sweats Eyes: Denies: Visual changes - bilaterally, Diplopia ENT: Denies: Rhinorrhea, Sore throat Cardiovascular: Denies: Chest pain, Palpitations Respiratory: Denies: Dyspnea, Cough, Dyspnea on exertion Gastrointestinal: Reports: Nausea. Denies: Abdominal pain, Vomiting, Diarrhea, Melena, Hematochezia Genitourinary: Denies: Dysuria, Hematuria, Frequency Musculoskeletal: Denies: Back pain, Extremity Pain Skin: Denies: Rash, Wounds Neurological: Denies: Headache, Weakness, Numbness Physical Exam Vital Signs/Narrative: Vital Signs Temp Pulse Resp BP Pulse Ox 10/26/19 19:57 97.7 F L 82 18 153/81 H 99 Inital Vital Signs reviewed: Yes General: Well nourished, Well developed, No Acute Distress Head: Normocephalic, Atraumatic Eyes: Perrl, EOMI ENT: Moist mucous membranes, No rhinorrhea Neck: Supple, Nontender Cardiovascular: Regular rate, Regular rhythm, No murmurs Respiratory: No distress, CTA bilaterally, Chest nontender Abdomen: Soft, Nontender, Nondistended, Normal bowel sounds Back: Nontender, Normal Inspection Extremities: Nontender, No edema Skin: Normal color, No rash Neurological: Alert, Oriented x3, Cranial nerves II-XII grossly intact, Normal Strength, Normal Sensation Psychological: Normal affect, Normal Mood Diagnostic/Tx/Re-eval Clinical Impression(s) from Imaging Studies Brain CT 10/26/19 20:18 IMPRESSION: Normal unenhanced CT scan of the brain. No change. Electronically Signed: Augustine Go, at 21:24 EDT Tel , Service support , Abnormal Lab Results 10/26/19 10/26/19 20:30 20:30 WBC 9.1 RBC 4.51 Hgb 12.1 Hct 37.9 MCV 84.0 MCH 26.8 L MCHC 31.9 L RDW Std Deviation 43.6 RDW Coeff of Hortencia 14.2 Plt Count 215 MPV 12.7 H Immature Gran % (Auto) 0.300 Neut % (Auto) 65.6 Lymph % (Auto) 26.6 [place] % (Auto) 6.6 Eos % (Auto) 0.6 Baso % (Auto) 0.3 Absolute Neuts (auto) 6.0 Absolute Lymphs (auto) 2.42 Nucleated RBC % 0 Sodium 140 Potassium 3.4 L Chloride 108 H Carbon Dioxide 26.0 Anion Gap 6 BUN 20 H Creatinine 0.95 Estim Creat Clear Calc 78.98 Est GFR (MDRD) Af Amer 83 Est GFR (MDRD) Non-Af 68 BUN/Creatinine Ratio 21.1 H Glucose 99 Calcium 8.2 L Magnesium 2.0 Total Bilirubin 0.20 AST 12 L ALT 21 Alkaline Phosphatase 71 Total Protein 7.2 Albumin 3.6 Globulin 3.6 Albumin/Globulin Ratio 1.0 - Medical Decision Making The patient presents with intermittent vertiginous symptoms that have increased over the past week. She is also state that she has been under significant amount of stress. She has a normal neurologic exam. She has no ataxia. She has no difficulty with rapid alternating movements. She has a normal steady gait. I did obtain noncontrast head CT given the chronicity of her symptoms. This was unremarkable. Screening labs were normal. She declined meclizine. She was given oral Valium with improvement of her symptoms. At this point, I do feel that she is safe for outpatient follow-up. She will be given ENT referral and will be discharged home. Impression 1. Vertigo ED Disposition - Plan for ED Patient: Instructions: ED Vertigo Unspecified Prescriptions: Diazepam [Valium] 2 mg PO TID PRN PRN #10 tab PRN Reason: Vertigo Prescription Printed Referrals: Justin Mak MD [STAFF PHYSICIAN] -
[2019-10-26] MEDS: 0.9% Normal Saline 1,000 ML 1000 ML IV (20:33)
[2019-10-26 20:43] LABS: Absolute Lymphocyte Count 2.42 X10^3/uL (0.83-4.51); Basophil# 0.03 X10^3/uL; Basophil% 0.3 % (0-1); Eosinophil# 0.05 X10^3/uL; Eosinophils% 0.6 % (0-5); Hematocrit 37.9 % (37-47); Hemoglobin 12.1 g/dL (12.0-15.0); Lymphocyte # 2.42 X10^3/ul (4.0); Lymphocyte % 26.6 % (19-41); Mean Corp Hgb Conc 31.9 g/dL (32-36); Mean Corpuscular Hgb 26.8 pg (27.0-32.0); Mean Platelet Vol. 12.7 fl (6.2-12.0); Monocyte% 6.6 % (0-10); NRBC Flagged by Analyzer 0 % (0-5); Neutrophil # 5.96 X10^3/uL (2.7-7.7); Neutrophil % 65.6 % (47-70); Platelet Count 215 K/mm3 (150-450); RBC Distribution Width CV 14.2 % (11.6-14.6); RBC Distribution Width SD 43.6 fl (35.1-43.9); Red Blood Count 4.51 M/mm3 (4.2-5.4); White Blood Count 9.1 K/mm3 (4.4-11.0)
[2019-10-26 21:03] LABS: AST(SGOT) 12 U/L (15-37); Alanine Aminotransfer ALT/SGPT 21 U/L (13-56); Albumin, Serum 3.6 g/dL (3.2-5.0); Alkaline Phosphatase 71 U/L (45-117); Anion Gap 6 (5-15); BUN 20 mg/dL (7-18); BUN/Creat Ratio 21.1 RATIO (10-20); Calcium,Total 8.2 mg/dL (8.5-10.1); Chloride 108 mmol/L (98-107); Creatinine, Serum 0.95 mg/dL (0.55-1.02); EST Glomerular Filtration Rate 68 mL/min (>60); Est Glom Filt Rate - Afr Amer 83 mL/min (>60); Estimated Creatinine Clearance 78.98 ml/min; Globulin 3.6 g/dL (2.2-4.2); Glucose 99 mg/dL (74-106); Potassium 3.4 mmol/L (3.5-5.1); Protein, Total 7.2 g/dL (6.4-8.2); Sodium Level 140 mmol/L (136-145)
[2019-10-26] MEDS: diazePAM 2 MG Tablet PO (21:35)
[2019-10-26 21:54] VITALS: BP 139/82; PULSE 66; RESP 18; O2SAT 99
== END 2019-10-26 21:55 | disposition home or self-care (01) ==
LOC: ED 20:57
PROVIDERS: Emergency Provider Emergency Medicine; PCP Internal Medicine
DX: R42 Dizziness and giddiness (principal); Z87.891 Personal history of nicotine dependence
CPT/HCPCS: 70450; 80053; 83735; 85025; 99283; J7030

== ENCOUNTER 2020-07-06 13:22 | Emergency (ER) | payer MEDICAID, SELFPAY ==
[2020-07-06 13:24] VITALS: BP 130/76; PULSE 119; RESP 20; TEMP 36.5; O2SAT 100; BMI 29.9
--- NOTE | 2020-07-06 14:12 | EKG12_ITS ---
Test Reason : [facility] [facility] Blood Pressure : / mmHG Vent. Rate : 089 BPM Atrial Rate : 089 BPM P-R Int : 138 ms QRS Dur : 170 ms QT Int : 436 ms P-R-T Axes : 064 253 069 degrees QTc Int : 530 ms Atrial-sensed ventricular-paced rhythm Biventricular pacemaker detected Abnormal ECG Confirmed by TYE ZELAYA, AYSE ([id number]), telegraph editor ALLA VALENTIN ([id number]) on 07/08/2020 10:05:00 AM Referred By: JEN Confirmed By:AYSE GAMBLE MD
[2020-07-06 14:37] LABS: Absolute Lymphocyte Count 1.84 X10^3/uL (0.83-4.51); Absolute Neutrophil Count 6.3 X10^3/uL (2.0-7.7); Basophil# 0.04 X10^3/uL; Basophil% 0.5 % (0-1); Eosinophil# 0.03 X10^3/uL; Eosinophils% 0.3 % (0-5); Hematocrit 38.7 % (37-47); Hemoglobin 12.5 g/dL (12.0-15.0); Lymphocyte # 1.84 X10^3/ul (4.0); Lymphocyte % 20.9 % (19-41); Mean Corp Hgb Conc 32.3 g/dL (32-36); Mean Corpuscular Hgb 27.7 pg (27.0-32.0); Mean Corpuscular Volume 85.6 fL (81-99); Monocyte# 0.54 X10^3/uL; Monocyte% 6.1 % (0-10); NRBC Flagged by Analyzer 0 % (0-5); Neutrophil # 6.34 X10^3/uL (2.7-7.7); Neutrophil % 71.9 % (47-70); Platelet Count 165 K/mm3 (150-450); RBC Distribution Width SD 43.5 fl (35.1-43.9); Red Blood Count 4.52 M/mm3 (4.2-5.4); White Blood Count 8.8 K/mm3 (4.4-11.0)
[2020-07-06] MEDS: Mag Hydrox/Al Hydrox/Simeth 30 ML UDC 15 ML PO (14:41)
[2020-07-06] MEDS: diazePAM 5 MG Tablet PO (14:42)
[2020-07-06 14:45] VITALS: O2SAT 98
--- NOTE | 2020-07-06 15:00 | RAD_ITS ---
STUDY: X-RAY CHEST REASON FOR EXAM: Female, 44 years old. Difficulties with defibrillator. TECHNIQUE: Single frontal view of the chest. COMPARISON: 12/08/2018 FINDINGS: Stable mild hyperexpansion with scattered healed granulomatous calcification. There is no demonstrated pleural abnormality. Normal size heart. Stable dual-lead cardiac pacer. Normal mediastinum and ginger. Normal visualized pulmonary arteries. Normal visualized aortic arch and descending thoracic aorta. Normal visualized thoracic spine. Normal visualized ribs, clavicles, and shoulders. There is no demonstrated abnormality of the visualized soft tissue structures of the upper abdomen. RAD/Chest 1 View (Portable) IMPRESSION: Stable chest with no acute superimposed finding. Electronically Signed: Ander Whitley MD at 15:25 EST , Service support ,
[2020-07-06 15:03] VITALS: BP 121/70; PULSE 88; RESP 14; O2SAT 98
[2020-07-06 15:04] LABS: Anion Gap 7 (5-15); BUN 15 mg/dL (7-18); BUN/Creat Ratio 16.5 RATIO (10-20); Chloride 106 mmol/L (98-107); Creatinine, Serum 0.91 mg/dL (0.55-1.02); EST Glomerular Filtration Rate 71 mL/min (>60); Est Glom Filt Rate - Afr Amer 86 mL/min (>60); Estimated Creatinine Clearance 82.45 ml/min; Glucose 92 mg/dL (74-106); Potassium 3.8 mmol/L (3.5-5.1); Sodium Level 138 mmol/L (136-145); Thyroid Stim Hormone (TSH) 3.33 uIU/mL (0.358-3.74)
--- NOTE | 2020-07-06 15:15 | ED.VISSUMM ---
- ER Visit Summary Date of Service: 07/06/20 Chief Complaint: Pacemaker vibrated History of Present Illness: The patient is a [address] 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 She reports that she has a history of complete heart block as a child. Had her first pacemaker placed at 16 years of age. She has had current pacemaker since 2013 and knows that it is at its end of life, but does not have a battery change scheduled. Patient reports she had an echocardiogram 1 week ago that was normal. She denies any chest pain. She states that she was sitting watching TV at 1231 her pacemaker vibrated twice. She did not get defibrillated as far she knows. Review of systems: General: No fever, chills, cold sweats. Cardiovascular: No chest pain, palpitations. Respiratory: No cough, shortness of breath, dyspnea on exertion. Gastrointestinal: No abdominal pain, nausea, vomiting, diarrhea, melena, or hematochezia. Genitourinary: No dysuria, frequency, hematuria. Skin: No rash. Neuro: No headache, numbness, weakness. Physical Examination: Vitals: Stable. Afebrile. General: Well-nourished and well-developed. Head: Normocephalic atraumatic. Neck: Supple, no lymphadenopathy. No JVD. Nontender. Cardiovascular: Regular rate and rhythm. No murmurs. Respiratory: No respiratory distress. Clear to auscultation bilaterally. Abdominal: Soft, nontender, nondistended, normal bowel sounds. No guarding, rebound, or peritoneal signs. Back: Nontender. Extremities: Nontender, no edema. Skin: Normal color, no rash. Neurologic: Alert and oriented ?3. Cranial nerves II through XII are intact. Normal strength and sensation. Psych: Normal affect. Test Results: EKG is AV paced at 89 with no acute changes. Troponin is negative. Chem-7 is normal. CBC shows 7 neutrophils 72. TSH is normal. Chest x-ray shows no acute disease. Pacemaker wires are intact. Emergency Department Course and Treatment: Patient had her pacemaker interrogated and it shows that at 12:49 PM patient had an atrial rate of 187 ventricular rate of 111. This lasted for approximately 3 minutes and 20 seconds. The tachycardia was narrow complex. Patient reports that she feels very anxious and has heartburn. She was given Valium and Mylanta. She is resting comfortably. Treatment Plan: The patient was discussed with Dr. Lainez, covering for her yard truck driver, he asked that she be placed on metoprolol succinate 25 mg daily and follow-up within 1 week for another exam. Patient is happy with this plan. Return to the emergency department for any worsening symptoms. Disposition: To home in improved and stable condition. Impression: 1. Atrial tachycardia. 2. Pacemaker battery at end-of-life. This note was generated with [employer] dictation software. It may contain incorrect words, spelling, and punctuation that were not noted in review of the chart prior to signing ED Disposition - Plan for ED Patient: Instructions: Pacemakers Prescriptions: Metoprolol Succinate 1 tab PO DAILY #30 tab.er.24h Additional Instructions: Follow-up with your yard truck driver within 1 week.
== END 2020-07-06 15:41 | disposition home or self-care (01) ==
PROVIDERS: Emergency Provider Emergency Medicine; PCP Internal Medicine
DX: I47.1 Supraventricular tachycardia (principal); Z95.0 Presence of cardiac pacemaker; Z87.891 Personal history of nicotine dependence
CPT/HCPCS: 71045; 80048; 84443; 84484; 85025; 93005; 99283; A4216

== ENCOUNTER 2020-10-02 10:27 | Emergency (ER) | payer MEDICAID, SELFPAY ==
[2020-10-02 10:28] VITALS: BP 161/84; PULSE 82; RESP 17; TEMP 36.6; O2SAT 99; BMI 30.1
--- NOTE | 2020-10-02 11:05 | EDS_ITS ---
HPI HPI - Female History of Present Illness Chief Complaint: Vag Bleeding Narrative Narrative: Patient presenting for evaluation secondary to vaginal bleeding and lightheadedness. Patient states that she has been dealing with vaginal bleeding for around a month, it started around August 24 with the onset of her normal menses. She states that this started off as a very light menses where she was not bleeding as much as she typically will, following her menses she had an increase in her bleeding to where she was bleeding quite heavily and was passing clots. Patient states that she was seen at the [facility] office, she did have pelvic exam as well as a pelvic ultrasound and a work-up. She was placed on iron secondary to some iron deficiency and was recommended to take progesterone. Patient tells me that she deals with very severe anxiety, she has been able to take the iron but due to the fact that someone told her that progesterone can increase your possibility of obtaining a blood clot she has not been able to take it due to her level of anxiety. She states that her bleeding somewhat tapered off, but more recently she has had again an increase in her bleeding as this time of the month coincides with her normal menses. She states that she vick s been dealing with some lightheadedness now. This is specifically with walking and standing patient has a history of AICD placement secondary to a history of pediatric complete heart block.. [facility] Medical History History of complete heart block Home Medications diazepam 2 mg PO TID PRN PRN #10 tab 10/26/19 [Rx Last Taken Unknown] Metoprolol Succinate 1 tab PO DAILY #30 tab.er.24h 07/06/20 [Rx Last Taken Un known] ibuprofen 800 mg PO Q8H #15 tab 10/02/20 [Rx Last Taken Unknown] Allergy/AdvReac Type Severity Reaction Status Date / Time tramadol Allergy Nausea Verified 10/02/20 10:30 naproxen AdvReac Other Verified 10/02/20 10:30 paroxetine HCl [From Paxil] AdvReac Other Verified 10/02/20 10:30 Social History Smoking Status: Former smoker ROS ROS ED Constitutional Constitutional ED: Denies chills or fever(s) ENT ENT ED: Denies rhinorrhea Cardiovascular Cardiovascular: Reports racing heartbeat and other Details: Lightheadedness ; Denies chest pain Respiratory/Chest Respiratory/Chest: Reports dyspnea; Denies cough Gastrointestinal Gastrointestinal: Denies abdominal pain, diarrhea, nausea or vomiting Genitourinary Genitourinary ED: Reports other Details: Vaginal bleeding ; Denies dysuria or hematuria Musculoskeletal Musculoskeletal: Denies back pain Integumentary Denies rash Neurologic Neurologic: Denies paresthesias or weakness Psychiatric Psychiatric: Denies depression Endocrine Endocrinology: Denies fatigue Allergic/Immunologic Allergic/Immunologic ED: Denies urticaria EXAM Physical Exam Const Vital Signs: 10/02/20 10:28 Temperature 98 F Temperature Source Temporal Pulse Rate 82 Respiratory Rate 17 Blood Pressure 161/84 H Blood Pressure Mean 109 Pulse Ox 99 Oxygen Delivery Method Room Air Positive well nourished and well developed General Appearance ED: well developed and NAD HEENT Reports moist mucous membranes Negative for trauma or tenderness Eyes EOMs intact bilaterally Neck no lymphadenopathy, supple and no JVD Chest Wall inspection of chest normal Resp normal respiratory effort and clear to auscultation bilaterally Cardio regular rate, regular rhythm, no murmurs and peripheral pulses 2+ throughout GI normal to inspection, nondistended, normoactive bowel sounds, non-tender and no masses Palpation: soft Back/Spine normal to inspection Extremity normal to inspection General Extremety ED: Negative for tenderness Neuro oriented x3 and no sensory deficits noted Sensorium / Orientation: alert Motor Exam: strength 5/5 throughout Psych Mood & Affect: anxious Skin no rashes or lesions noted MDM MDM MDM Narrative Medical decision making narrative: Patient presented secondary to vaginal bleeding and some lightheadedness. She recently had a work-up by [facility] that was found to be negative, was placed on iron and progesterone but she could not take the progesterone because she was too anxious. Patient has normal stable vitals, no evidence of hypotension tachycardia, and on physical exam she has no evidence of conjunctival pallor or signs of significant anemia. Patient's hemoglobin in the emergency department was 11.1 which is within her normal vacillation. Her test was negative. I do not feel that further work- up is indicated. Patient at this point is too anxious to take progesterone so I will try her on a dose of high-dose NSAIDs to see if this causes adequate vasoconstriction to decrease her intermenstrual bleeding. She was recommended to follow-up with women's health. Lab Data Labs: Laboratory Results - last 24 hr 10/02/20 10/02/20 10:58 10:58 Hgb 11.1 L Hct 34.3 L Serum , Qual NEGATIVE Discharge Plan Triage Chief Complaint: Vag Bleeding ED Provider: Alexis Graves Dx/Rx/DC Orders Clinical Impression: Metrorrhagia Instructions: ED Dysfunctional Uterine Bleeding Prescriptions: New ibuprofen 800 mg tablet 800 mg PO Q8H Qty: 15 RF: 0 No Action diazepam 2 MG tablet 2 mg PO TID PRN PRN (Reason: Vertigo) Qty: 10 RF: 0 Metoprolol Succinate 25 MG Tab.Er.24h 1 tab PO DAILY Qty: 30 RF: 0 Primary Care Provider: Mihir Glover Referrals: Mihir Glover MD [Primary Care Provider] - Activity Restrictions/Additional Instructions: Follow-up with your [facility] if you do not have improvement within 1 week Disposition Disposition: Home, self care
[2020-10-02 11:06] LABS: Hematocrit 34.3 % (37-47); Hemoglobin 11.1 g/dL (12.0-15.0)
[2020-10-02 11:14] LABS: Internal QC Validated? YES +Cl - CLEAR BKGD; Pregnancy, Serum, hCG Quali. NEGATIVE Negative
== END 2020-10-02 11:42 | disposition home or self-care (01) ==
PROVIDERS: Emergency Provider Emergency Medicine; PCP Internal Medicine
DX: N92.1 Excessive and frequent menstruation with irregular cycle (principal); Z95.810 Presence of automatic (implantable) cardiac defibrillator; Z87.891 Personal history of nicotine dependence
CPT/HCPCS: 84703; 85014; 85018; 99282; A4216

== ENCOUNTER 2021-03-19 07:04 | Emergency (ER) | payer MEDICAID, SELFPAY ==
[2021-03-19 07:05] VITALS: BP 122/87; PULSE 80; RESP 18; TEMP 35.8; O2SAT 100; BMI 32.8
--- NOTE | 2021-03-19 07:17 | EKG12_ITS ---
Test Reason : CP Blood Pressure : / mmHG Vent. Rate : 080 BPM Atrial Rate : 080 BPM P-R Int : 142 ms QRS Dur : 168 ms QT Int : 454 ms P-R-T Axes : 061 251 063 degrees QTc Int : 523 ms Atrial-sensed ventricular-paced rhythm Biventricular pacemaker detected Abnormal ECG Confirmed by TYE ZELAYA, AYSE ([id number]), editor newspaper ALLA VALENTIN ([id number]) on 03/20/2021 11:36:09 AM Referred By: NEIL Confirmed By:AYSE GAMBLE MD
--- NOTE | 2021-03-19 07:19 | EDS_ITS ---
HPI History of Present Illness Chief Complaint: Chest Pain Detail of Chief Complaint: Dizziness and chest discomfort Informant: patient Narrative Narrative: Patient presents to the emergency department complaint of episode of dizziness this morning upon awakening. Patient states that she sat on the edge of the bed and felt like things were spinning around and round and she was very nauseated. EMS was called and their initial blood pressure was 85/50 however subsequent blood pressures were high and normal. Patient states she has a history of vertigo but this felt different. She also had a burning pain in her chest and abdomen and back. Patient has history of cardiomyopathy and complete heart block with an ICD in place. She denies recent illness. She has not been vaccinated against Covid. She denies fevers. She is feeling improved as far as the dizziness on arrival but she still feels somewhat nauseated. Patient also bulimic and states that she vomits daily. Patient vomited once yesterday and twice the day before. Prior similar symptoms: Yes PFSH PFSH Medical History (Updated 03/19/21 @ 10:[address] Ashley White, DO) Bulimia Deliberate self-cutting History of complete heart block Panic anxiety syndrome PTSD (post-traumatic stress disorder) Home Medications diazepam 2 mg PO TID PRN PRN #10 tab 10/26/19 [Rx Last Taken Unknown] ibuprofen 800 mg PO Q8H #15 tab 10/02/20 [Rx Last Taken Unknown] ondansetron 4 mg PO Q8H PRN PRN #10 tab 03/19/21 [Rx Last Taken Unknown] Allergy/AdvReac Type Severity Reaction Status Date / Time tramadol Allergy Nausea Verified 03/19/21 07:10 Antihistamines - AdvReac Other Verified 03/19/21 08:50 Ethylenediamine naproxen AdvReac Other Verified 03/19/21 07:10 paroxetine HCl [From Paxil] AdvReac Other Verified 03/19/21 07:10 Family History Other Cardiac defibrillator in place Social History Smoking Status: Former smoker ROS ROS ED ROS Narrative Dizziness Constitutional Constitutional ED: Reports systems reviewed and no addt'l complaints, except as documented; Denies body ache(s), change in weight or chills Eyes Eyes: Denies acute decrease in peripheral vision, change in vision, double vision or loss of vision ENT ENT ED: Reports none; Denies ear pain, lip swelling, loss taste/smell, neck pain, otalgia or sore throat Cardiovascular Cardiovascular: Reports none, chest pain and palpitations; Denies abdominal pain, chest pain with activity, leg edema, lightheadedness, rapid heart rate or syncope Respiratory/Chest Respiratory/Chest: Reports none; Denies change in mental status, dry cough, dyspnea, hemoptysis, shortness of breath at rest or shortness of breath with e xertion Gastrointestinal Gastrointestinal: Reports none and nausea; Denies abdominal pain, change in st ool character, diarrhea, hematemesis, hematochezia, melena, rectal bleeding or vomiting Genitourinary Genitourinary ED: Reports none; Denies abdominal discomfort, anuria, dysuria, genital pain or polyuria Musculoskeletal Musculoskeletal: Reports none; Denies arthralgias, back pain, difficulty walking, extremity pain, muscle weakness or myalgias Integumentary Reports none; Denies abscess or rash Neurologic Neurologic: Reports none; Denies abnormal gait, confusion, focal weakness, frequent falls, headache(s), loss of vision, numbness, paresthesias, radicular pain, vertigo or weakness Psychiatric Psychiatric: Reports systems reviewed and no addt'l complaints, except as documented and none; Denies behavioral changes, confusion, difficulty concentrating, hallucinations, suicidal ideation, tactile hallucinations or visual hallucinations Endocrine Endocrinology: Denies none, cold intolerance, excessive sweating, fatigue or heat intolerance Hematologic/Lymphatic Hematologic/Lymphatic: Reports none; Denies anemia, easy bleeding or easy bruising Allergic/Immunologic Allergic/Immunologic ED: Denies as per HPI, none, lip swelling, mouth swelling, throat swelling, tongue swelling or hives EXAM Physical Exam Const Vital Signs: 03/19/21 07:05 03/19/21 08:39 03/19/21 09:12 Temperature 96.5 F L Temperature Source Temporal Pulse Rate 80 74 80 Pulse Rate [Lying] 73 Pulse Rate [Sitting] 74 Pulse Rate [Standing] 79 Respiratory Rate 18 18 16 Blood Pressure 122/87 H 119/69 120/68 Blood Pressure [Lying] 119/69 Blood Pressure [Sitting] 127/75 H Blood Pressure [Standing] 116/77 Blood Pressure Mean 98 85 85 Blood Pressure Mean [Lying] 85 Blood Pressure Mean [Sitting] 92 Blood Pressure Mean [Standing] 90 Pulse Ox 100 100 100 Oxygen Delivery Method Room Air Room Air Room Air Positive well nourished and well developed General Appearance ED: well developed and NAD HEENT Reports TM's clear and moist mucous membranes normocephalic and atraumatic; Negative for trauma or tenderness Tympanic Membrane ED: Yes TM's clear Eyes PERRL and EOMs intact bilaterally General Eye ED: Negative for pale conjunctiva or scleral icterus Neck no lymphadenopathy, supple and no JVD General: Negative for tenderness Chest Wall inspection of chest normal and palpation of chest normal Chest: Negative for tenderness Resp normal respiratory effort and clear to auscultation bilaterally Effort and Inspection: Negative for respiratory distress or pain with movement Auscultation: Negative for rhonchi, wheezes or diminished lung sounds Cardio regular rate, regular rhythm, S1 normal heart sound, S2 normal heart sound and no murmurs Peripheral Pulses: pulses 2+ throughout GI normal to inspection, nondistended, normoactive bowel sounds, soft to palpation, non-tender, non-distended and no masses Back/Spine no CVA tenderness and no thoracic nor lumbar tenderness Extremity normal to inspection General Extremety ED: Negative for edema General Extremity: Negative for edema Neuro oriented x3, CN's II-XII intact bilaterally, no sensory deficits noted and gait normal Sensorium / Orientation: awake, alert, oriented to person, oriented to place and oriented to time Motor Exam: strength 5/5 throughout and strength abnormal Psych mental status grossly normal Skin no rashes or lesions noted and no wounds MDM MDM MDM Narrative Medical decision making narrative: IV line established on arrival. 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 Orthostatic vital signs were negative. Hallpike maneuver was negative for nystagmus. Patient was medicated with Valium 2 mg p.o. as she refused Antivert because antihistamines make her hyper. Patient felt well. She not having chest pain currently. I do not feel she is having acute coronary syndrome. She had a negative delta troponin. Her symptoms more consistent with benign positional vertigo. Lab Data Attestation: I reviewed the patient's lab results. Labs: Laboratory Results - last 24 hr 03/19/21 03/19/21 03/19/21 07:25 07:25 09:30 WBC 6.0 RBC 4.49 Hgb 10.5 L Hct 34.6 L MCV 77.1 L MCH 23.4 L MCHC 30.3 L RDW Std Deviation 46.4 H RDW Coeff of Hortencia 16.6 H Plt Count 182 MPV 12.3 H Immature Gran % (Auto) 0.300 Neut % (Auto) 65.2 Lymph % (Auto) 27.5 Kemper % (Auto) 5.5 Eos % (Auto) 1.2 Baso % (Auto) 0.3 Absolute Neuts (auto) 3.9 Absolute Lymphs (auto) 1.65 Nucleated RBC % 0 Sodium 140 Potassium 3.9 Chloride 108 H Carbon Dioxide 25.0 Anion Gap 7 BUN 18 Creatinine 0.97 Estim Creat Clear Calc 76.54 Est GFR (MDRD) Af Amer 80 Est GFR (MDRD) Non-Af 66 BUN/Creatinine Ratio 18.6 Glucose 108 H Calcium 8.4 L Total Bilirubin 0.40 AST 16 ALT 19 Alkaline Phosphatase 68 Troponin I High Sens 7 7 Total Protein 6.7 Albumin 3.1 L Globulin 3.6 Albumin/Globulin Ratio 0.9 Lipase 229 Radiography Chest X-Ray - ED: 1 View Diagnostic Testing: Clinical Impression(s) from Imaging Studies Chest X-Ray 03/19/21 07:49 IMPRESSION: Nonacute portable x-ray examination of the chest. Electronically Signed: Gabino Martinez MD (Brooks) at 7:59 EST , Service support , 1 view chest x-ray obtained interpreted by myself as no acute disease process. EKG Initial EKG: Attestation: I personally reviewed and interpreted this EKG as follows: Comments: Atrially sensed and ventricularly paced rhythm with a rate of 80 bpm Discharge Plan Triage Chief Complaint: Chest Pain ED Provider: Ashley White Dx/Rx/DC Orders Clinical Impression: Benign paroxysmal positional vertigo Instructions: ED BPV Vertigo Prescriptions: New ondansetron [ondansetron] 4 MG tablet 4 mg PO Q8H PRN PRN (Reason: Nausea) Qty: 10 RF: 0 No Action diazepam 2 MG tablet 2 mg PO TID PRN PRN (Reason: Vertigo) Qty: 10 RF: 0 ibuprofen 800 mg tablet 800 mg PO Q8H Qty: 15 RF: 0 Primary Care Provider: Mihir Glover Referrals: Mihir Glover MD [Primary Care Provider] - 3-5 Days Disposition Disposition: Home, Self Care
[2021-03-19] MEDS: Ondansetron 4 MG/2 ML Vial IV (07:42)
[2021-03-19] MEDS: 0.9% Normal Saline 1,000 ML 150 ML IV (07:42)
--- NOTE | 2021-03-19 07:49 | RAD_ITS ---
STUDY: X-RAY CHEST REASON FOR EXAM: Female, 45 years old. chest pain TECHNIQUE: AP COMPARISON: None. FINDINGS: EKG leads project over the chest. Three lead cardiac conduction device is seen via the left subclavian vein with lead tips projecting over the right atrium and right ventricle, respectively, with left atrial lead projecting over the left atrium/posterior cardiac border. The lungs are clear and expanded. There is no demonstrated pleural abnormality. Normal size heart. Normal mediastinum and ginger. Normal visualized pulmonary arteries. Normal visualized aortic arch and descending thoracic aorta. Normal visualized thoracic spine. Normal visualized ribs, clavicles, and shoulders. There is no demonstrated abnormality of the visualized soft tissue structures of the upper abdomen. RAD/Chest 1 View (Portable) IMPRESSION: Nonacute portable x-ray examination of the chest. Electronically Signed: Gabino Martinez MD (Brooks) at 7:59 EST , Service support ,
[2021-03-19 07:50] LABS: Absolute Lymphocyte Count 1.65 X10^3/uL (0.83-4.51); Absolute Neutrophil Count 3.9 X10^3/uL (2.0-7.7); Basophil# 0.02 X10^3/uL; Basophil% 0.3 % (0-1); Eosinophil# 0.07 X10^3/uL; Eosinophils% 1.2 % (0-5); Hematocrit 34.6 % (37-47); Hemoglobin 10.5 g/dL (12.0-15.0); Lymphocyte # 1.65 X10^3/ul (0.83-4.51); Lymphocyte % 27.5 % (19-41); Mean Corp Hgb Conc 30.3 g/dL (32-36); Mean Corpuscular Hgb 23.4 pg (27.0-32.0); Mean Corpuscular Volume 77.1 fL (81-99); Mean Platelet Vol. 12.3 fl (6.2-12.0); Monocyte# 0.33 X10^3/uL; Monocyte% 5.5 % (0-10); NRBC Flagged by Analyzer 0 % (0-5); Neutrophil % 65.2 % (47-70); Platelet Count 182 K/mm3 (150-450); RBC Distribution Width CV 16.6 % (11.6-14.6); RBC Distribution Width SD 46.4 fl (35.1-43.9); Red Blood Count 4.49 M/mm3 (4.2-5.4)
[2021-03-19 08:02] LABS: ALB/GLOB Ratio 0.9 RATIO (0.9-2.4); AST(SGOT) 16 U/L (15-37); Alanine Aminotransfer ALT/SGPT 19 U/L (13-56); Albumin, Serum 3.1 g/dL (3.2-5.0); Alkaline Phosphatase 68 U/L (45-117); Anion Gap 7 (5-15); BUN 18 mg/dL (7-18); BUN/Creat Ratio 18.6 RATIO (10-20); Calcium,Total 8.4 mg/dL (8.5-10.1); Chloride 108 mmol/L (98-107); Creatinine, Serum 0.97 mg/dL (0.55-1.02); EST Glomerular Filtration Rate 66 mL/min (>60); Est Glom Filt Rate - Afr Amer 80 mL/min (>60); Estimated Creatinine Clearance 76.54 ml/min; Globulin 3.6 g/dL (2.2-4.2); Glucose 108 mg/dL (74-106); Lipase 229 U/L (73-393); Potassium 3.9 mmol/L (3.5-5.1); Protein, Total 6.7 g/dL (6.4-8.2); Sodium Level 140 mmol/L (136-145); Troponin-I HS 7 pg/mL (3.0-54.0)
[2021-03-19 08:39] VITALS: BP 116/77; BP 119/69; BP 127/75; PULSE 73; PULSE 74; PULSE 79; RESP 18; O2SAT 100
[2021-03-19] MEDS: diazePAM 2 MG Tablet 4 MG PO (08:54)
[2021-03-19 09:12] VITALS: BP 120/68; PULSE 80; RESP 16; O2SAT 100
[2021-03-19 10:12] LABS: Troponin-I HS 7 pg/mL (3.0-54.0)
== END 2021-03-19 11:06 | disposition home or self-care (01) ==
PROVIDERS: Emergency Provider Emergency Medicine; PCP Internal Medicine
DX: H81.10 Benign paroxysmal vertigo, unspecified ear (principal); Z87.891 Personal history of nicotine dependence; Z79.899 Other long term (current) drug therapy
CPT/HCPCS: 71045; 80053; 83690; 84484; 85025; 87426; 93005; 96374; 99285; A4216; J2405

== ENCOUNTER 2021-05-28 12:43 | Emergency (ER) | payer MEDICAID, SELFPAY ==
[2021-05-28 12:44] VITALS: BP 125/100; PULSE 112; RESP 15; TEMP 36.6; O2SAT 100; BMI 30.9
--- NOTE | 2021-05-28 13:44 | EKG12_ITS ---
Test Reason : SOB Blood Pressure : / mmHG Vent. Rate : 079 BPM Atrial Rate : 079 BPM P-R Int : 146 ms QRS Dur : 160 ms QT Int : 446 ms P-R-T Axes : 066 249 071 degrees QTc Int : 511 ms Atrial-sensed ventricular-paced rhythm Biventricular pacemaker detected Abnormal ECG Confirmed by DANA ZELAYA, KIMI ([id number]), telegraph editor DIANA BREEN ([id number]) on 05/29/2021 9:01:43 AM Referred By: FRANCIS Confirmed By:KIMI CORTEZ MD
[2021-05-28 14:49] LABS: Absolute Lymphocyte Count 1.27 X10^3/uL (0.83-4.51); Absolute Neutrophil Count 1.9 X10^3/uL (2.0-7.7); Basophil# 0.01 X10^3/uL; Basophil% 0.3 % (0-1); Hematocrit 37.9 % (37-47); Hemoglobin 11.5 g/dL (12.0-15.0); Lymphocyte # 1.27 X10^3/ul (0.83-4.51); Lymphocyte % 36.3 % (19-41); Mean Corp Hgb Conc 30.3 g/dL (32-36); Monocyte# 0.28 X10^3/uL; NRBC Flagged by Analyzer 0 % (0-5); Neutrophil # 1.93 X10^3/uL (2.7-7.7); Neutrophil % 55.1 % (47-70); Platelet Count 131 K/mm3 (150-450); RBC Distribution Width CV 16.5 % (11.6-14.6); RBC Distribution Width SD 45.1 fl (35.1-43.9); Red Blood Count 4.99 M/mm3 (4.2-5.4); White Blood Count 3.5 K/mm3 (4.4-11.0)
--- NOTE | 2021-05-28 15:00 | RAD_ITS ---
STUDY: X-RAY CHEST REASON FOR EXAM: Female, 45 years old. Chest pain TECHNIQUE: Single AP portable view of the chest. COMPARISON: Comparison is made with prior study dated 03/19/2021. FINDINGS: EKG electrodes are seen. The lungs are clear and expanded. There is no demonstrated pleural abnormality. Normal size heart. A left-sided dual chamber pacemaker is seen. Normal mediastinum and ginger. Normal visualized pulmonary arteries. Normal visualized aortic arch and descending thoracic aorta. Normal visualized thoracic spine. Normal visualized ribs, clavicles, and shoulders. There is no demonstrated abnormality of the visualized soft tissue structures of the upper abdomen. RAD/Chest 1 View (Portable) IMPRESSION: No acute abnormality is seen. Electronically Signed: Fletcher Yanez MD at 15:11 EST , Service support ,
[2021-05-28 15:05] LABS: D-Dimer Quantitative (DVT/PE) 0.56 FEU/ug/m (0.27-0.49)
--- NOTE | 2021-05-28 15:09 | CT_ITS ---
STUDY: CTA CHEST REASON FOR EXAM: Female, 45 years old. Chest pain, elevated dimer RADIATION DOSAGE (If Supplied By Facility): CTDIvol = ( 10.55 ) mGy, DLP = ( 484.55 ) mGycm TECHNIQUE: The examination was performed with the intravenous administration of IV 100mL [id number]-[id number]. Post-processing of the angiographic images was performed, with multiplanar reformation and 3D reconstruction. Individualized dose optimization techniques were used for this CT. COMPARISON: Comparison is made with prior chest radiograph done earlier today. FINDINGS: A left-sided pacemaker device is visualized. Normal enhancement of the main pulmonary artery and right and left pulmonary arteries. Normal enhancement of the bilateral peripheral pulmonary arteries. There is no demonstrated pulmonary embolism. Normal thoracic aorta and visualized great vessels. There is no demonstrated aortic dissection. Normal heart and pericardium. Normal mediastinum. Normal hilar regions. Normal visualized trachea and bronchi. The lungs are well expanded. Focal alveolar infiltrate in the left upper lobe. Focal alveolar infiltrate is also seen in the lateral aspect of the left upper lobe as well as in the posterior segment of the left lower lobe and posterior segment of the right lower lobe. Small left pleural effusion. Normal chest wall structures. Normal osseous structures. There is a 1.4 cm low density nodule in the lateral limb of the left adrenal gland in keeping with a small adrenal adenoma. Fatty infiltration of the liver. CT/CTA Chest W/WO Contrast IMPRESSION: No evidence of pulmonary embolism. Focal areas of alveolar infiltrates in both lungs as described. Early pneumonic infiltrates associated with Covid should be ruled out. Electronically Signed: Fletcher Yanez MD at 15:38 EST , Service support ,
[2021-05-28 15:12] LABS: ALB/GLOB Ratio 0.9 RATIO (0.9-2.4); AST(SGOT) 18 U/L (15-37); Alanine Aminotransfer ALT/SGPT 31 U/L (13-56); Albumin, Serum 3.5 g/dL (3.2-5.0); Alkaline Phosphatase 78 U/L (45-117); Anion Gap 4 (5-15); BUN 9 mg/dL (7-18); BUN/Creat Ratio 10.2 RATIO (10-20); Calcium,Total 8.4 mg/dL (8.5-10.1); Chloride 106 mmol/L (98-107); Creatinine, Serum 0.88 mg/dL (0.55-1.02); EST Glomerular Filtration Rate 73 mL/min (>60); Est Glom Filt Rate - Afr Amer 89 mL/min (>60); Estimated Creatinine Clearance 84.37 ml/min; Globulin 3.8 g/dL (2.2-4.2); Glucose 104 mg/dL (74-106); Lipase 197 U/L (73-393); Potassium 3.7 mmol/L (3.5-5.1); Protein, Total 7.3 g/dL (6.4-8.2); Sodium Level 138 mmol/L (136-145); Troponin-I HS 7 pg/mL (3.0-54.0)
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
[2021-05-28 16:00] VITALS: BP 111/78; PULSE 71; RESP 14; O2SAT 98
--- NOTE | 2021-05-28 16:04 | EDS_ITS ---
HPI History of Present Illness Chief Complaint: Shortness of Breath Informant: patient Narrative Narrative: Patient is a 45-year-old female with history of mitral valve regurg, heart block as a child status post pacemaker/ICD placement, anxiety, depression and chronic suicidal ideations when stressed out presenting with shortness of breath. Patient was exposed to COVID-19 by her roommate 9 days ago. 1 week ago she started having symptoms including chills and fever. She had a positive COVID test at [facility]. She currently she is doing better which is having some sinus congestion and scratchy cough. This morning however she started to feel short of breath and felt like there was bricks on her back in her chest. She notes it rock in her chest wall hurts. She not take anything for her symptoms. She did feel that she was having a panic attack and took a 0.5 mg Ativan which she has prescribed. She states that she was breathing fast and started have numbness in her hands earlier today. She notes she is chronically short of breath but it has been worse today with more minimal exertion. Patient's notes that she deals with pretty significant depression and anxiety. She screened positive for thoughts of suicide but she notes that this is an everyday occurrence and her baseline. She is not actively want to . She follows with the counseling center and her psychiatrist. [facility] Medical History Bulimia Deliberate self-cutting History of complete heart block Panic anxiety syndrome PTSD (post-traumatic stress disorder) Home Medications diazepam 2 mg PO TID PRN PRN #10 tab 10/26/19 [Rx Last Taken Unknown] ibuprofen 800 mg PO Q8H #15 tab 10/02/20 [Rx Last Taken Unknown] ondansetron 4 mg PO Q8H PRN PRN #10 tab 03/19/21 [Rx Last Taken Unknown] Allergy/AdvReac Type Severity Reaction Status Date / Time tramadol Allergy Nausea Verified 05/28/21 12:44 Antihistamines - AdvReac Other Verified 05/28/21 12:44 Ethylenediamine naproxen AdvReac Other Verified 05/28/21 12:44 paroxetine HCl [From Paxil] AdvReac Other Verified 05/28/21 12:44 Family History Other Cardiac defibrillator in place Social History Smoking Status: Former smoker ROS ROS ED Constitutional Constitutional ED: Denies chills or fever(s) Eyes Eyes: Denies change in vision ENT ENT ED: Reports sore throat and other Details: Nasal congestion ; Denies ear pain or rhinorrhea Cardiovascular Cardiovascular: Reports chest pain; Denies palpitations or racing heartbeat Respiratory/Chest Respiratory/Chest: Reports cough, dyspnea and dyspnea on exertion; Denies sputum Gastrointestinal Gastrointestinal: Denies abdominal pain, nausea or vomiting Genitourinary Genitourinary ED: Denies dysuria or hematuria Musculoskeletal Musculoskeletal: Reports back pain; Denies arthralgias or myalgias Integumentary Denies rash Neurologic Neurologic: Denies headache(s) or weakness Psychiatric Psychiatric: Reports anxiety, depression and suicidal thoughts; Denies suicidal ideation EXAM Physical Exam Const Vital Signs: 05/28/21 12:44 05/28/21 14:46 05/28/21 16:00 Temperature 97.8 F Temperature Source Temporal Pulse Rate 112 H 71 Respiratory Rate 15 14 Respiratory Effort Short of Breath Respiratory Depth Shallow Respiratory Pattern Normal Blood Pressure 125/100 H 111/78 Blood Pressure Mean 108 89 Pulse Ox 100 98 Oxygen Delivery Method Room Air Room Air Room Air Positive well nourished and well developed General Appearance ED: well developed HEENT Reports TM's clear and moist mucous membranes atraumatic Tympanic Membrane ED: Yes TM's clear Eyes PERRL and EOMs intact bilaterally Neck supple and no JVD Resp normal respiratory effort and clear to auscultation bilaterally Cardio regular rate, regular rhythm and no murmurs GI non-tender and non-distended Auscultation: normoactive bowel sounds Palpation: soft Back/Spine normal to inspection Extremity normal to inspection General Extremety ED: Negative for tenderness Neuro oriented x3 Sensorium / Orientation: alert, oriented to person and oriented to place Motor Exam: Negative for general weakness Psych mental status grossly normal Mood & Affect: anxious and tearful; Negative for depressed Skin Lesions: no lesions Rashes: no rashes MDM MDM MDM Narrative Medical decision making narrative: Patient evaluated for shortness of breath and chest discomfort in the setting of recent COVID-19 infection. Patient is very anxious but notes she has her significant psychiatric history. Vital signs are significant for mild tachycardia however I do think this is more associated with her anxiety. D-dimer is mildly elevated however and CT obtained to rule out PE especially given her recent COVID-19 infection. Patient is some mild inflammatory changes consistent with COVID-19 but no acute pneumonia or PE. Patient's troponin is normal. Note patient does not have any ischemic EKG changes. As she is paced but has a history of a pacemaker. She has a mild leukopenia which is also consistent with acute viral infection. Patient is discharged home with reassurance. She is counseled return precautions. She is evaluated by case management for her anxiety/depression. She has a good contract for safety and is insightful about her depression so I do not think she needs emergent psychiatric evaluation. Lab Data Attestation: I reviewed the patient's lab results. Labs: Laboratory Results - last 24 hr 05/28/21 05/28/21 05/28/21 14:40 14:40 14:40 WBC 3.5 L RBC 4.99 Hgb 11.5 L Hct 37.9 MCV 76.0 L MCH 23.0 L MCHC 30.3 L RDW Std Deviation 45.1 H RDW Coeff of Hortencia 16.5 H Plt Count 131 L Immature Gran % (Auto) 0.300 Neut % (Auto) 55.1 Lymph % (Auto) 36.3 Glascock % (Auto) 8.0 Eos % (Auto) 0.0 Baso % (Auto) 0.3 Absolute Neuts (auto) 1.9 L Absolute Lymphs (auto) 1.27 Nucleated RBC % 0 D-Dimer Quant (PE/DVT) 0.56 H* Sodium 138 Potassium 3.7 Chloride 106 Carbon Dioxide 28.0 Anion Gap 4 L BUN 9 Creatinine 0.88 Estim Creat Clear Calc 84.37 Est GFR (MDRD) Af Amer 89 Est GFR (MDRD) Non-Af 73 BUN/Creatinine Ratio 10.2 Glucose 104 Calcium 8.4 L Total Bilirubin 0.40 AST 18 ALT 31 Alkaline Phosphatase 78 Troponin I High Sens 7 Total Protein 7.3 Albumin 3.5 Globulin 3.8 Albumin/Globulin Ratio 0.9 Lipase 197 Radiography Chest X-Ray - ED: 1 View, Read by ED Physician, Read by Radiologist and No Acute Disease Diagnostic Testing: Clinical Impression(s) from Imaging Studies Chest X-Ray 05/28/21 15:00 IMPRESSION: No acute abnormality is seen. Electronically Signed: Fletcher Yanez MD at 15:11 EST , Service support , Chest CTA 05/28/21 15:09 IMPRESSION: No evidence of pulmonary embolism. Focal areas of alveolar infiltrates in both lungs as described. Early pneumonic infiltrates associated with Covid should be ruled out. Electronically Signed: Fletcher Yanez MD at 15:38 EST , Service support , Rhythm Strip Rhythm Strip: Paced Rate: 79 Ectopy: None EKG Initial EKG: Attestation: I personally reviewed and interpreted this EKG as follows: Interpretation: Paced Comments: Atrial sensed ventricular paced rhythm at a rate of 79 No acute ischemic changes Discharge Plan Triage Chief Complaint: Shortness of Breath ED Provider: Desi Mcghee Dx/Rx/DC Orders Clinical Impression: Chest pain, COVID-19, Acute dyspnea Instructions: Coronavirus Disease 2019 (COVID-19): Caring for Yourself or Others, ED Dyspnea Prescriptions: No Action diazepam 2 MG tablet 2 mg PO TID PRN PRN (Reason: Vertigo) Qty: 10 RF: 0 ibuprofen 800 mg tablet 800 mg PO Q8H Qty: 15 RF: 0 ondansetron [ondansetron] 4 MG tablet 4 mg PO Q8H PRN PRN (Reason: Nausea) Qty: 10 RF: 0 Primary Care Provider: Mihir Glover Referrals: Mihir Glover MD [Primary Care Provider] - Disposition Disposition: Home, Self Care
== END 2021-05-28 16:42 | disposition home or self-care (01) ==
PROVIDERS: Emergency Provider Emergency Medicine; PCP Internal Medicine; Visit Provider Emergency Medicine
DX: U07.1 COVID-19 (principal); F32.A Depression, unspecified; F41.0 Panic disorder [episodic paroxysmal anxiety]; Z95.0 Presence of cardiac pacemaker; Z20.822 Contact with and (suspected) exposure to COVID-19; Z79.899 Other long term (current) drug therapy; Z91.51 Personal history of suicidal behavior; Z87.891 Personal history of nicotine dependence
CPT/HCPCS: 71045; 71275; 80053; 83690; 84484; 85025; 85379; 93005; 99284; Q9967; A4216

== ENCOUNTER 2021-10-24 08:51 | Emergency (ER) | payer MEDICAID, SELFPAY ==
[2021-10-24 08:54] VITALS: BP 143/89; PULSE 79; RESP 17; TEMP 36.2; O2SAT 100; BMI 31.4
--- NOTE | 2021-10-24 09:35 | EDS_ITS ---
HPI HPI - Female History of Present Illness Chief Complaint: Vag Bleeding Informant: patient Narrative Narrative: 46-year-old female with history of irregular menses and anxiety presenting with heavy vaginal bleeding. She states she had heavy vaginal bleeding for the past month. She states she had been masturbating with toys and her hands more frequently but then started having spotting. This was 3 to 4 weeks ago. She states she not concern for retained foreign body in her vagina. She then progressed to bright red bleeding with clots. She states she is going through an overnight pad every 2 hours. She had been taking ibuprofen which had slowed the bleeding down however when she stopped it the bleeding increased again. She notes she has some pressure in her rectum as well. She follows with [facility]. She has some associated nausea and has not really eaten anything today. She denies any lightheadedness but states that she feels foggy, off in her head and her arms are heavy. No other complaints at this time. She notes her normal menstrual cycle usually last for about 2 weeks. She does get routine gynecologic exams because she has a family history of cervical cancer [facility] Medical History Bulimia Deliberate self-cutting History of complete heart block Panic anxiety syndrome PTSD (post-traumatic stress disorder) Home Medications diazepam 2 mg tablet 2 mg PO TID PRN PRN Vertigo #10 tabs 10/26/19 [Rx Last Taken Unknown] ibuprofen 800 mg tablet 800 mg PO Q8H #15 tabs 10/02/20 [Rx Last Taken Unknown] ondansetron 4 mg disintegrating tablet 4 mg PO Q8H PRN PRN Nausea #10 tabs 03/19/21 [Rx Last Taken Unknown] ferrous sulfate 324 mg (65 mg iron) tablet,delayed release 324 mg PO TID #90 tabs 10/24/21 [Rx Last Taken Unknown] norethindrone acetate 5 mg tablet (Aygestin) 5 mg PO TID #21 tabs 10/24/21 [Rx Last Taken Unknown] ondansetron HCl 4 mg tablet 4 mg PO Q6H PRN nausea and vomiting #14 tabs 10/24/21 [Rx Last Taken Unknown] Allergy/AdvReac Type Severity Reaction Status Date / Time tramadol Allergy Nausea Verified 10/24/21 08:52 Antihistamines - AdvReac Other Verified 10/24/21 08:52 Ethylenediamine naproxen AdvReac Other Verified 10/24/21 08:52 paroxetine HCl [From Paxil] AdvReac Other Verified 10/24/21 08:52 Family History Other Cardiac defibrillator in place Social History Smoking Status: Former smoker ROS ROS ED Constitutional Constitutional ED: Denies chills or fever(s) Eyes Eyes: Denies blurry vision or change in vision ENT ENT ED: Denies rhinorrhea or sore throat Cardiovascular Cardiovascular: Denies chest pain Respiratory/Chest Respiratory/Chest: Denies cough Gastrointestinal Gastrointestinal: Reports abdominal pain and nausea; Denies melena or vomiting Genitourinary Genitourinary ED: Reports other Details: vaginal bleeding ; Denies dysuria or hematuria Musculoskeletal Musculoskeletal: Denies arthralgias or myalgias Integumentary Denies Abrasions Neurologic Neurologic: Denies headache(s) or weakness Psychiatric Psychiatric: Reports anxiety Hematologic/Lymphatic Hematologic/Lymphatic: Denies easy bleeding or easy bruising EXAM Physical Exam Const Vital Signs: 10/24/21 08:54 10/24/21 11:24 10/24/21 13:15 Temperature 97.2 F L Temperature Source Temporal Pulse Rate 79 72 Respiratory Rate 17 15 16 Blood Pressure 143/89 H 134/69 H Blood Pressure Mean 107 90 Pulse Ox 100 97 99 Oxygen Delivery Method Room Air Room Air Room Air Positive well nourished and well developed General Appearance ED: well developed and NAD HEENT Reports moist mucous membranes Eyes PERRL and EOMs intact bilaterally Chest Wall inspection of chest normal Resp normal respiratory effort and clear to auscultation bilaterally Cardio regular rate, regular rhythm and no murmurs GI normal to inspection, nondistended, normoactive bowel sounds, soft to palpation, non-tender and non-distended Narrative: Normal external genitalia. Os is closed however there is a small trickle of dark red blood through it. No clots appreciated on pelvic exam. No cervical motion tenderness or adnexal tenderness. No significant blood/clots noted in the vaginal canal. Extremity normal to inspection and full ROM Neuro oriented x3 Motor Exam: Negative for general weakness Psych mental status grossly normal Mood & Affect: anxious Skin no rashes or lesions noted MDM MDM MDM Narrative Medical decision making narrative: Patient evaluated for persistent vaginal bleeding. She does not feel well and is not having lightheadedness or syncope. Hemoglobin obtained is 10.5 which is her baseline. She does have a microcytic anemia and is encouraged to start taking iron supplements. Pelvic ultrasound shows a slow bleeding but pretty mild. Pelvic ultrasound obtained shows a 10 mm endometrium as well as a left ovarian cyst. Case is discussed with Dr. Didi Jaramillo, gynecology on-call, who recommends starting the patient on Agestin and for outpatient follow-up. Patient agreeable with this plan of care. Lab Data Attestation: I reviewed the patient's lab results. Labs: Laboratory Results - last 24 hr 10/24/21 10/24/21 10/24/21 09:10 09:10 09:10 WBC 7.3 RBC 4.38 Hgb 10.5 L Hct 34.2 L MCV 78.1 L MCH 24.0 L MCHC 30.7 L RDW Std Deviation 48.3 H RDW Coeff of Hortencia 17.1 H Plt Count 190 MPV 12.3 H Immature Gran % (Auto) 0.100 Neut % (Auto) 72.4 H Lymph % (Auto) 21.5 Amelia % (Auto) 5.3 Eos % (Auto) 0.4 Baso % (Auto) 0.3 Absolute Neuts (auto) 5.3 Absolute Lymphs (auto) 1.57 Nucleated RBC % 0 Sodium 138 Potassium 3.6 Chloride 108 H Carbon Dioxide 24.0 Anion Gap 6 BUN 11 Creatinine 0.82 Estim Creat Clear Calc 89.59 Est GFR (MDRD) Af Amer 97 Est GFR (MDRD) Non-Af 80 BUN/Creatinine Ratio 13.5 Glucose 114 H Calcium 8.2 L Urine Color Urine Clarity Urine pH Ur Specific [place] Urine Protein Urine Glucose (UA) Urine Ketones Urine Occult Blood Urine Nitrite Urine Bilirubin Urine Urobilinogen Ur Leukocyte Esterase Urine RBC Urine WBC Ur Squamous Epith Cells Urine Bacteria Urine Mucus Urine Test POC Glucose Blood Type A POSITIVE Antibody Screen NEGATIVE 10/24/21 10/24/21 09:35 09:54 WBC RBC Hgb Hct MCV MCH MCHC RDW Std Deviation RDW Coeff of Hortencia Plt Count MPV Immature Gran % (Auto) Neut % (Auto) Lymph % (Auto) Amelia % (Auto) Eos % (Auto) Baso % (Auto) Absolute Neuts (auto) Absolute Lymphs (auto) Nucleated RBC % Sodium Potassium Chloride Carbon Dioxide Anion Gap BUN Creatinine Estim Creat Clear Calc Est GFR (MDRD) Af Amer Est GFR (MDRD) Non-Af BUN/Creatinine Ratio Glucose Calcium Urine Color Straw Urine Clarity Clear Urine pH 6.0 Ur Specific [place] 1.010 Urine Protein Negative Urine Glucose (UA) Normal Urine Ketones Negative Urine Occult Blood 250 H Urine Nitrite Negative Urine Bilirubin Negative Urine Urobilinogen Normal Ur Leukocyte Esterase Negative Urine RBC 0 SEEN Urine WBC 0 SEEN Ur Squamous Epith Cells 0 SEEN Urine Bacteria 0 SEEN Urine Mucus 0 SEEN Urine Test Negative POC Glucose 112 H Blood Type Antibody Screen Radiography Diagnostic Testing: Clinical Impression(s) from Imaging Studies Transvaginal US 10/24/21 10:21 IMPRESSION: Thickened endometrium. Left ovarian cyst. Electronically Signed: Fletcher Yanez MD at 11:28 EDT , Discharge Plan Triage Chief Complaint: Vag Bleeding ED Provider: Desi Mcghee Dx/Rx/DC Orders Clinical Impression: Metrorrhagia Instructions: ED Dysfunctional Uterine Bleeding Prescriptions: New norethindrone acetate [Aygestin] 5 mg tablet 5 mg PO TID Qty: 21 0RF Rx Instructions: Reduce to twice a day if the bleeding stops. ondansetron HCl 4 mg tablet 4 mg PO Q6H PRN (Reason: nausea and vomiting) Qty: 14 0RF ferrous sulfate 324 mg (65 mg iron) tablet,delayed release (DR/EC) 324 mg PO TID Qty: 90 0RF No Action diazepam 2 MG tablet 2 mg PO TID PRN PRN (Reason: Vertigo) Qty: 10 0RF ibuprofen 800 mg tablet 800 mg PO Q8H Qty: 15 0RF ondansetron [ondansetron] 4 MG tablet 4 mg PO Q8H PRN PRN (Reason: Nausea) Qty: 10 0RF Primary Care Provider: Mihir Glover Referrals: Nazia Jaramillo MD [STAFF PHYSICIAN] - Mihir Glover MD [Primary Care Provider] - Activity Restrictions/Additional Instructions: Please call the technology services manager later today or on Wednesday to schedule close follow- up. Disposition Disposition: Home, Self Care
[2021-10-24 09:36] LABS: Absolute Lymphocyte Count 1.57 X10^3/uL (0.83-4.51); Absolute Neutrophil Count 5.3 X10^3/uL (2.0-7.7); Basophil# 0.02 X10^3/uL; Basophil% 0.3 % (0-1); Eosinophil# 0.03 X10^3/uL; Eosinophils% 0.4 % (0-5); Hematocrit 34.2 % (37-47); Hemoglobin 10.5 g/dL (12.0-15.0); Lymphocyte # 1.57 X10^3/ul (0.83-4.51); Lymphocyte % 21.5 % (19-41); Mean Corp Hgb Conc 30.7 g/dL (32-36); Mean Corpuscular Volume 78.1 fL (81-99); Mean Platelet Vol. 12.3 fl (6.2-12.0); Monocyte# 0.39 X10^3/uL; Monocyte% 5.3 % (0-10); NRBC Flagged by Analyzer 0 % (0-5); Neutrophil # 5.27 X10^3/uL (2.7-7.7); Neutrophil % 72.4 % (47-70); Platelet Count 190 K/mm3 (150-450); RBC Distribution Width CV 17.1 % (11.6-14.6); RBC Distribution Width SD 48.3 fl (35.1-43.9); Red Blood Count 4.38 M/mm3 (4.2-5.4); White Blood Count 7.3 K/mm3 (4.4-11.0)
[2021-10-24 09:41] LABS: Bedside Glucose 112 mg/dL (74-106)
[2021-10-24 09:47] LABS: Anion Gap 6 (5-15); BUN 11 mg/dL (7-18); BUN/Creat Ratio 13.5 RATIO (10-20); Calcium,Total 8.2 mg/dL (8.5-10.1); Chloride 108 mmol/L (98-107); Creatinine, Serum 0.82 mg/dL (0.55-1.02); EST Glomerular Filtration Rate 80 mL/min (>60); Est Glom Filt Rate - Afr Amer 97 mL/min (>60); Estimated Creatinine Clearance 89.59 ml/min; Glucose 114 mg/dL (74-106); Potassium 3.6 mmol/L (3.5-5.1); Sodium Level 138 mmol/L (136-145)
[2021-10-24] MEDS: 0.9% Normal Saline 1,000 ML 999 ML IV (09:49)
[2021-10-24] MEDS: Ketorolac 15 MG/ML Vial IV (09:49)
[2021-10-24] MEDS: Ondansetron 4 MG/2 ML Vial IV (09:49)
[2021-10-24 09:58] LABS: Bacteria 0 SEEN /hpf (None Seen); Mucous, Urine 0 SEEN /hpf (<or=2+); Red Blood Cells-Urine 0 SEEN /hpf (0-5); Squamous Epithelial Cells - UA 0 SEEN /hpf (5-10); White Blood Cells 0 SEEN /hpf (0-5)
[2021-10-24 10:03] LABS: Color, Urine Straw (Yellow); Glucose, Dipstick Normal (Normal); Ketone-Dipstick Negative (Negative); Leukocyte Esterase-Dipstick Negative /ul (Negative); Nitrite-Dipstick Negative (Negative); Occult Blood-Urine 250 /ul (Negative); Protein-Dipstick Negative (Negative); Urine Bilirubin Dipstick Negative (Negative); Urine Clarity Clear (Clear); Urine Urobilinogen Normal (Normal)
[2021-10-24 10:12] LABS: Internal QC Validated? YES +Cl - CLEAR BKGD; Pregnancy, Urine Negative Negative
--- NOTE | 2021-10-24 10:21 | US_ITS ---
STUDY: ULTRASOUND OF THE FEMALE PELVIS - COMPLETE REASON FOR EXAM: Female, 46 years old. Heavy vaginal bleeding TECHNIQUE: Transvaginal TECHNICAL QUALITY: Adequate. COMPARISON: None. FINDINGS: The uterus is retroverted and is in a midline position. The uterus measures 8.9 cm x 6.5 cm x 6.2 cm. There is a Nabothian cyst of the cervix. The endometrium measures 10 mm in thickness, and is hyperechoic. There is no demonstrated endometrial mass. Heterogeneous echotexture of the myometrium although no focal fibroid is seen. I.U.D. - The patient does not have an I.U.D. The right ovary is visualized. The right ovary measures 3.8 cm x 1.7 cm x 2.1 cm. There is no right ovarian cyst or ovarian mass. There is no visualized right adnexal mass or complex lesion. There is normal arterial and normal venous vascularity. The left ovary is visualized. The left ovary measures 3.9 cm x 3.5 cm x 2 cm. There is a 3.5 cm x 2.3 cm x 2.2 cm cyst in the left ovary. There is no visualized left adnexal mass or complex lesion. There is normal arterial and normal venous vascularity. There is no fluid in the cul-de-sac. US/Transvaginal Non- IMPRESSION: Thickened endometrium. Left ovarian cyst. Electronically Signed: Fletcher Yanez MD at 11:28 EDT ,
[2021-10-24 11:24] VITALS: BP 134/69; PULSE 72; RESP 15; O2SAT 97
[2021-10-24 13:15] VITALS: RESP 16; O2SAT 99
[2021-10-24 14:25] VITALS: PULSE 87; RESP 16; O2SAT 97
== END 2021-10-24 14:25 | disposition home or self-care (01) ==
PROVIDERS: Emergency Provider Emergency Medicine; PCP Internal Medicine; Visit Provider Emergency Medicine
DX: N92.1 Excessive and frequent menstruation with irregular cycle (principal); Z87.891 Personal history of nicotine dependence
CPT/HCPCS: 76830; 80048; 81001; 81025; 82962; 85025; 86850; 86900; 86901; 96374; 96375; 99283; J7030; A4216; J2405

== ENCOUNTER 2021-11-17 07:09 | Emergency (ER) | payer MEDICAID, SELFPAY ==
[2021-11-17 07:10] VITALS: BP 146/94; PULSE 106; RESP 16; TEMP 36.3; O2SAT 100; BMI 30.7
--- NOTE | 2021-11-17 07:23 | RAD_ITS ---
STUDY: X-RAY CHEST REASON FOR EXAM: Female, 46 years old. Dyspnea on exertion TECHNIQUE: Single AP portable view of the chest. COMPARISON: Comparison is made with prior study dated 05/28/2021. FINDINGS: EKG electrodes are seen. The lungs are clear and expanded. There is no demonstrated pleural abnormality. Normal size heart. A left-sided dual-chamber pacemaker is seen. Normal mediastinum and ginger. Normal visualized pulmonary arteries. Normal visualized aortic arch and descending thoracic aorta. Normal visualized thoracic spine. Normal visualized ribs, clavicles, and shoulders. There is no demonstrated abnormality of the visualized soft tissue structures of the upper abdomen. RAD/Chest PA and Lateral IMPRESSION: No acute abnormality is seen. Electronically Signed: Fletcher Yanez MD at 8:29 EDT ,
--- NOTE | 2021-11-17 07:23 | EKG12_ITS ---
Test Reason : Blood Pressure : / mmHG Vent. Rate : 078 BPM Atrial Rate : 078 BPM P-R Int : 136 ms QRS Dur : 160 ms QT Int : 436 ms P-R-T Axes : 075 243 081 degrees QTc Int : 497 ms Atrial-sensed ventricular-paced rhythm Biventricular pacemaker detected Abnormal ECG Confirmed by DANA ZELAYA, KIMI ([id number]), news videotape editor ALLA VALENTIN ([id number]) on 11/18/2021 8:40:11 AM Referred By: Confirmed By:KIMI CORTEZ MD
--- NOTE | 2021-11-17 07:24 | EDS_ITS ---
HPI History of Present Illness Chief Complaint: Abn Labs Detail of Chief Complaint: dyspnea on exertion Informant: patient Onset/Context/Timing Onset: Month(s) (1.5) Context: Onset with activity Timing: Intermittent Quality: short of breath Current Severity: Moderate Maximum Severity: Moderate Worsened by: any activity Relieved by: rest Associated Symptoms Associated Symptoms: fatigue. no chest pain, no swelling. Narrative Narrative: Patient has been out of breath with exertion for the past 1 or 2 months, she has been seen at [facility] where her PCP is and told she was anemic with hemoglobin in the nines over a week ago, she had iron studies showing that her levels were all low and she was put on iron. Her symptoms have not changed and no one has gotten back to her about other treatments and/or transfusions. She states she was admitted to the hospital last year for heart failure; states she had a congenital cardiac condition and was in complete heart block, requiring a pacemaker when she was young, and that it caused her heart to get dilated and going to failure, she states they manipulated the pacemaker and leads and as of last year her heart was doing much better with an EF over 50%. Denies any recent illness. States she has been very anxious. She states for some reason she did not take her anxiety medication on purpose this morning, and at another point states that [facility] schedules her outpatient appointments 1 or 2 months out because of her insurance, and part of the reason she came to the ER today is because it gets her into her doctor more quickly as an outpatient when following up. [facility] Medical History (Updated 11/17/21 @ 08:[address] Unruly Jones MD) Bulimia Deliberate self-cutting History of complete heart block Iron deficiency anemia Panic anxiety syndrome PTSD (post-traumatic stress disorder) Home Medications diazepam 2 mg tablet 2 mg PO TID PRN PRN Vertigo #10 tabs 10/26/19 [Rx Last Taken Unknown] ibuprofen 800 mg tablet 800 mg PO Q8H #15 tabs 10/02/20 [Rx Last Taken Unknown] ondansetron 4 mg disintegrating tablet 4 mg PO Q8H PRN PRN Nausea #10 tabs 03/19/21 [Rx Last Taken Unknown] ferrous sulfate 324 mg (65 mg iron) tablet,delayed release 324 mg PO TID #90 tabs 10/24/21 [Rx Last Taken Unknown] norethindrone acetate 5 mg tablet (Aygestin) 5 mg PO TID #21 tabs 10/24/21 [Rx Last Taken Unknown] ondansetron HCl 4 mg tablet 4 mg PO Q6H PRN nausea and vomiting #14 tabs 10/24/21 [Rx Last Taken Unknown] Allergy/AdvReac Type Severity Reaction Status Date / Time tramadol Allergy Nausea Verified 11/17/21 07:13 Antihistamines - AdvReac Other Verified 11/17/21 07:13 Ethylenediamine naproxen AdvReac Other Verified 11/17/21 07:13 paroxetine HCl [From Paxil] AdvReac Other Verified 11/17/21 07:13 Family History Other Cardiac defibrillator in place Social History Smoking Status: Former smoker ROS ROS ED Constitutional Constitutional ED: Reports fatigue; Denies chills or fever(s) Eyes Eyes: Denies change in vision or diplopia ENT ENT ED: Denies rhinorrhea or sore throat Cardiovascular Cardiovascular: Denies chest pain, orthopnea or palpitations Respiratory/Chest Respiratory/Chest: Reports dyspnea on exertion; Denies cough or orthopnea Gastrointestinal Gastrointestinal: Denies abdominal pain, diarrhea, nausea or vomiting Genitourinary Genitourinary ED: Denies dysuria or hematuria Musculoskeletal Musculoskeletal: Denies back pain or neck pain Integumentary Denies abscess or rash Neurologic Neurologic: Denies headache(s), paresthesias or weakness Psychiatric Psychiatric: Reports anxiety; Denies suicidal ideation or suicidal thoughts EXAM Physical Exam Const Vital Signs: 11/17/21 07:10 11/17/21 07:22 Temperature 97.4 F L Temperature Source Temporal Pulse Rate 106 H Respiratory Rate 16 Respiratory Effort Normal Respiratory Pattern Normal Blood Pressure 146/94 H Blood Pressure Mean 111 Pulse Ox 100 Oxygen Delivery Method Room Air Positive well nourished and well developed General Appearance ED: well developed and NAD HEENT Reports moist mucous membranes normocephalic and atraumatic Eyes PERRL and EOMs intact bilaterally Neck full ROM and supple Resp normal respiratory effort and clear to auscultation bilaterally Cardio regular rate, regular rhythm and no murmurs Rate: Negative for tachycardic GI non-tender and non-distended Auscultation: normoactive bowel sounds Palpation: soft Back/Spine no CVA tenderness General Back: other FROM Extremity normal to inspection and no calf tenderness General Extremety ED: Negative for edema, pulses abnormal or tenderness General Extremity: Negative for edema or pulses abnormal Neuro oriented x3, CN's II-XII intact bilaterally and no sensory deficits noted Sensorium / Orientation: awake and alert Motor Exam: strength 5/5 throughout Psych mental status grossly normal Mood & Affect: anxious and tearful Skin no rashes or lesions noted and no wounds MDM MDM MDM Narrative Medical decision making narrative: I reassured patient, she has no evidence of a dysrhythmia, heart failure, myocardial infarction, pulmonary infection, and her anemia is continuing to improve with a hemoglobin at 10.3 today. If her symptoms are due to anemia, they should progressively improve as she treats with her iron supplementation. Close outpatient follow-up advised. With her pulse ox at 100%, no chest discomfort, no recent long travel or leg pain or swelling or history of DVT/PE, I do not think we need to test her for pulmonary embolus today. Additionally, I reassured the patient that it is unlikely she is being treated differently based on her insurance, certainly we strive to avoid such things here, as does the [facility]. Lab Data Attestation: I reviewed the patient's lab results. Labs: Laboratory Results - last 24 hr 11/17/21 11/17/21 11/17/21 07:30 07:30 07:30 WBC 6.3 RBC 4.27 Hgb 10.3 L Hct 33.9 L MCV 79.4 L MCH 24.1 L MCHC 30.4 L RDW Std Deviation 45.0 H RDW Coeff of Hortencia 15.6 H Plt Count 216 MPV 12.2 H Immature Gran % (Auto) 0.500 Neut % (Auto) 71.8 H Lymph % (Auto) 21.0 [place] % (Auto) 5.4 Eos % (Auto) 0.8 Baso % (Auto) 0.5 Absolute Neuts (auto) 4.6 Absolute Lymphs (auto) 1.33 Nucleated RBC % 0 Sodium 140 Potassium 3.8 Chloride 106 Carbon Dioxide 25.0 Anion Gap 9 BUN 16 Creatinine 1.00 Estim Creat Clear Calc 73.46 Est GFR (MDRD) Af Amer 77 Est GFR (MDRD) Non-Af 63 BUN/Creatinine Ratio 16.0 Glucose 169 H Calcium 8.6 Troponin I High Sens 7 B-Natriuretic Peptide 30.8 Radiography Chest X-Ray - ED: 2 View, Read by ED Physician, Normal, Heart, Lungs, Mediastinum and No Acute Disease Diagnostic Testing: Clinical Impression(s) from Imaging Studies Chest X-Ray 11/17/21 07:23 IMPRESSION: No acute abnormality is seen. Electronically Signed: Fletcher Yanez MD at 8:29 EDT , Rhythm Strip Rhythm Strip: Sinus Rhythm Rate: 75 Ectopy: None EKG Initial EKG: Attestation: I personally reviewed and interpreted this EKG as follows: Interpretation: Sinus Rhythm (With ventricular pacing, rate 78) Comments: Right axis Prior EKG tracings: available for review Prior: Unchanged Discharge Plan Triage Chief Complaint: Abn Labs ED Provider: Unruly Jones Dx/Rx/DC Orders Clinical Impression: ZAVALA (dyspnea on exertion), Anemia Instructions: Anemia Prescriptions: No Action diazepam 2 MG tablet 2 mg PO TID PRN PRN (Reason: Vertigo) Qty: 10 0RF ibuprofen 800 mg tablet 800 mg PO Q8H Qty: 15 0RF ondansetron [ondansetron] 4 MG tablet 4 mg PO Q8H PRN PRN (Reason: Nausea) Qty: 10 0RF norethindrone acetate [Aygestin] 5 mg tablet 5 mg PO TID Qty: 21 0RF Rx Instructions: Reduce to twice a day if the bleeding stops. ondansetron HCl 4 mg tablet 4 mg PO Q6H PRN (Reason: nausea and vomiting) Qty: 14 0RF ferrous sulfate 324 mg (65 mg iron) tablet,delayed release (DR/EC) 324 mg PO TID Qty: 90 0RF Primary Care Provider: Mihir Glover Referrals: Mihir Glover MD [Primary Care Provider] - 1 Week Disposition Disposition: Home, Self Care
[2021-11-17 07:53] LABS: Absolute Lymphocyte Count 1.33 X10^3/uL (0.83-4.51); Absolute Neutrophil Count 4.6 X10^3/uL (2.0-7.7); Basophil# 0.03 X10^3/uL; Basophil% 0.5 % (0-1); Eosinophil# 0.05 X10^3/uL; Eosinophils% 0.8 % (0-5); Hematocrit 33.9 % (37-47); Hemoglobin 10.3 g/dL (12.0-15.0); Lymphocyte # 1.33 X10^3/ul (0.83-4.51); Mean Corp Hgb Conc 30.4 g/dL (32-36); Mean Corpuscular Hgb 24.1 pg (27.0-32.0); Mean Corpuscular Volume 79.4 fL (81-99); Mean Platelet Vol. 12.2 fl (6.2-12.0); Monocyte# 0.34 X10^3/uL; Monocyte% 5.4 % (0-10); NRBC Flagged by Analyzer 0 % (0-5); Neutrophil # 4.55 X10^3/uL (2.7-7.7); Neutrophil % 71.8 % (47-70); Platelet Count 216 K/mm3 (150-450); RBC Distribution Width CV 15.6 % (11.6-14.6); Red Blood Count 4.27 M/mm3 (4.2-5.4); White Blood Count 6.3 K/mm3 (4.4-11.0)
[2021-11-17 08:01] LABS: Anion Gap 9 (5-15); BUN 16 mg/dL (7-18); Calcium,Total 8.6 mg/dL (8.5-10.1); Chloride 106 mmol/L (98-107); EST Glomerular Filtration Rate 63 mL/min (>60); Est Glom Filt Rate - Afr Amer 77 mL/min (>60); Estimated Creatinine Clearance 73.46 ml/min; Glucose 169 mg/dL (74-106); Potassium 3.8 mmol/L (3.5-5.1); Sodium Level 140 mmol/L (136-145); Troponin-I HS 7 pg/mL (3.0-54.0)
[2021-11-17 08:14] LABS: BNP,B-Type NATRIURETIC PEPTIDE 30.8 pg/mL (0-100)
== END 2021-11-17 09:07 | disposition home or self-care (01) ==
PROVIDERS: Emergency Provider Emergency Medicine; PCP Internal Medicine; Visit Provider Emergency Medicine
DX: R06.00 Dyspnea, unspecified (principal); D64.9 Anemia, unspecified; Z95.0 Presence of cardiac pacemaker; Z87.891 Personal history of nicotine dependence
CPT/HCPCS: 71046; 80048; 83880; 84484; 85025; 93005; 99283; A4216

== ENCOUNTER 2022-02-05 12:01 | Day surgery (SDC) | payer MEDICAID, SELFPAY ==
--- NOTE | 2022-01-30 10:56 | PCM.HP.BLA ---
History and Physical Date of Admission: 02/05/22 HPI: The patient is a 46 year old female presenting for pre-operative visit. She is scheduled for Hysteroscopy D&C w/ endometrial ablation, for menorrhagia on 02/05/22. Procedure discussed along with risks, benefits and complications. Other alternatives discussed for management. Consent form signed? Yes. ? ? PAST MEDICAL HISTORY PAST MEDICAL HISTORY Diagnosis Date ? Asthma ? ? Atrial tachycardia (HCC) 2009 ? Atrioventricular block, complete (HCC) 07/31/2005 ? 3rd degree AVB ? Bipolar affective (HCC) ? ? Dr. Rios ? Bipolar affective disorder (HCC) 12/01/2018 ? Congenital third degree heart block 07/31/2005 ? Constipation, chronic 02/19/2016 ? 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 Last Assessment & Plan: Underwent successful RA lead extraction and replacement yesterday, 09/01 CXR demonstrates no pneumothroax Device interrogation pending ? Headache(784.0) ? ? MIGRAINES WITH AURA ? Panic disorder without agoraphobia 11/19/2011 ? Follows at [facility] Bipolar disorder possible, to be r/o (09/25/11) ? Primary cardiomyopathy (HCC) ? ? non ischemic ? PTSD (post-traumatic stress disorder) 11/19/2011 ? Follows at [facility] ? Schizoaffective disorder ? ? Unspecified schizophrenia ? ? Schizophrenia ? ? PAST SURGICAL HISTORY PAST SURGICAL HISTORY Procedure Laterality Date ? ANES PERMANENT TRANSVENOUS PACEMAKER INSERTION ? 01/09/1992 ? Permanent Pacemaker ? DELIVERY ONLY ? ? ? TIMES THREE ? ICD GENERATOR CHANGE ? 07/19/2020 ? [facility] ? IMPLANTABLE CARDIOVERTER DEFIBRILLATOR ? 05/10/2009 ? defib/pacer- [facility], Dr Hardy ? LIG/TRNSXJ FLP TUBE ABDL/VAG APPR UNI/BI ? CURRENT MEDICATIONS Current Outpatient Medications Medication Sig Dispense Refill ? LORazepam (ATIVAN) 0.5 mg Take 0.5 mg by mouth twice daily as needed. ? ? ? norethindrone (AYGESTIN) 5 mg tablet Take 1 tablet by mouth once daily. 30 tablet 5 ? ondansetron orally disintegrating (ZOFRAN ODT) 4 mg disintegrating tablet Take 4 mg by mouth every 8 hours as needed for nausea/vomiting. ? ? ? Current Facility-Administered Medications Medication Dose Route Frequency Provider Last Rate Last Admin ? NaCl (PF) 0.9% 10-20 mL injection 10-20 mL INTRAVENOUS PRN Christine Joseph APRN.LEIF ? ? ALLERGIES: Adhesive Tape-Silicones, Antihistamine [Diphenhydramine], Latex, Lisinopril, Naproxen, and Paxil [Paroxetine] ? PERSONAL HISTORY: SOCIAL HISTORY Social History ? Tobacco Use ? Smoking status: Former ? ? Packs/day: 2.00 ? ? Years: 15.00 ? ? Pack years: 30.00 ? ? Types: Cigarettes ? ? Quit date: 12/08/2017 ? ? Years since quittin.1 ? Smokeless tobacco: Never Vaping Use ? Vaping Use: Former ? Start date: 12/08/2017 ? Quit date: 01/08/2018 Substance Use Topics ? Alcohol use: Yes ? ? Comment: rare ? Drug use: Not Currently ? ? Comment: quit pot 2016. Medical Marijuana 2020. ? FAMILY HISTORY: FAMILY HISTORY FAMILY HISTORY Problem Relation Age of Onset ? Asthma Mother ? ? Breast Cancer Mother ? ? developed age 61 ? other (leukemia) Mother 60 ? Hypertension Father ? ? Diabetes Father ? ? Coronary Artery Disease Father ? ? other (LIVER DISEASE) Father ? ? R/T ETOH ABUSE ? Genitourinary () Paternal Grandfather ? ? Diabetes Brother ? ? ? REVIEW OF SYMPTOMS: GENERAL: denies fevers or chills ENDOCRINOLOGY: has not been on steroids Cardiology : denies palpitations or chest pain Respiratory: denies SOB or cough Hematology: denies history of prolonged bleeding or easy bruising or VTE Allergy: Denies history of personal or family history of allergy to anesthesia ? PHYSICAL EXAMINATION: ? VITALS: Last menstrual period 12/29/2021. ? GENERAL: The patient is well nourished, well hydrated in no acute distress. , The patient is oriented to time, place, and person. NECK: Supple. No lynphadenopathy, normal thyroid, no thyromegaly. LUNGS: Clear to auscultation bilaterally. no wheezes, rhonchi or rales HEART: Regular rate and rhythm, Normal heart sounds, and No murmurs or gallops GENITALIA: Normal external genitalia, Urethral meatus normal, Bladder nontender, normal vagina and normal vaginal tone, normal cervix, normal uterus, size and consistency, normal adnexa without masses or tenderness, and perineum WNL ? ? IMPRESSION: menorhagia ? PLAN: The risks/benefits/alternatives and personal involved for the planned hysteroscopy D&C with endometrial ablation were reviewed with the patient. Her questions were answered to her satisfaction and she desires to proceed. Consent was signed. I reviewed with her postop instructions and expectations. ? ? I have reviewed and updated past medical and surgical history, medications and allergies Assessment & Plan Assessment/Plan (1) Abnormal uterine bleeding (AUB):
[2022-02-05] VITALS (7 sets, daily range): BP systolic 101–118; BP diastolic 67–80; PULSE 65–71; RESP 16; TEMP 36.2–36.4; O2SAT 98–100; BMI 30.9
--- NOTE | 2022-02-05 | EMB_PTH ---
PATIENT: DAVE ROMERO [place] [facility] [place][id number] AGE/SX: 46/F ROOM: RE02/05/[address]: Dr. Flor Castro MD : 1975 BED: DIS: 02/05/2022 SPEC #: [id number] RECD: 02/06/22 10:23 STATUS: BROCK RENancy #: [id number] ESTEE: 02/05/22 00:[address]: Flor Castro DEPT: SURGICAL PATHOLOGY RECD BY: Carlos Connor ENTERED: 02/06/22 10:24 SP TYPE: ENDOM BX/C TRISH DR: Dr. Mihir Glover MD Tissues: Endometrium, NOS Procedures: Surgery Specimen Level IV HEADER OPERATION: Hysteroscopy, D & C Marcella PRE-OP DIAGNOSIS: Abnormal uterine bleeding TISSUE SUBMITTED: Endometrial curettings MICROSCOPIC DIAGNOSIS Endometrium, curettings: Secretory endometrium. Scant fragments of benign endocervix. AM:trang 02/09/2022 MICROSCOPIC DESCRIPTION Slides are reviewed. GROSS DESCRIPTION Received in fixative is one container labeled with the patient's name and designated endometrial curettings. The specimen consists of multiple fragments of hemorrhagic soft tissue mixed with mucoid tissue that in aggregate measure 5 x 3 x 0.3 cm. The entire specimen is submitted in two cassettes. / LAUREN:trang 02/06/2022 TC:5 [facility]: [id number]
[2022-02-05 12:53] LABS: Internal QC Validated? YES +Cl - CLEAR BKGD; Pregnancy, Urine Negative Negative
[2022-02-05 12:54] LABS: Hematocrit 44.8 % (37-47); Hemoglobin 14.1 g/dL (12.0-15.0); Mean Corp Hgb Conc 31.5 g/dL (32-36); Mean Corpuscular Hgb 26.3 pg (27.0-32.0); Mean Corpuscular Volume 83.6 fL (81-99); Mean Platelet Vol. 11.5 fl (6.2-12.0); Platelet Count 178 K/mm3 (150-450); RBC Distribution Width CV 19.5 % (11.6-14.6); RBC Distribution Width SD 57.9 fl (35.1-43.9); Red Blood Count 5.36 M/mm3 (4.2-5.4); White Blood Count 9.1 K/mm3 (4.4-11.0)
[2022-02-05] MEDS: Acetaminophen 500 MG Tablet 1000 MG PO (12:59)
[2022-02-05] MEDS: Lactated Ringers 1,000 ML 15 ML IV (13:03)
--- NOTE | 2022-02-05 15:02 | DCINST_ITS ---
Discharge Instructions Diet Discharge Diet: No restrictions Activity May resume sexual activity in: 2 weeks Lifting Restrictions: none Dressing / Incision Call your doctor if your incision/area has: Sudden Increased Bleeding and Foul Smelling Discharge Call your doctor if you observe: Fever of 101 or Higher and Using more than 1 pad per hour (for 2 hrs in a row) Follow Up Care Please Follow Up With: Flor Castro MD When: 2-4 weeks or as needed. Call [phone] to make an appointment or with any concerns. Test Results: Test results from this visit will be discussed in further detail at your follow- up appointment, if applicable. Discharge Plan Admission Primary Reason for Your Visit: Hysteroscopy with Marcella endometrial ablation Attending Provider: Flor Castro Primary Care Provider: Mihir Glover Discharge Orders/Prescriptions Prescriptions: No Action ondansetron [ondansetron] 4 MG tablet 4 mg PO Q8H PRN PRN (Reason: Nausea) Qty: 10 0RF lorazepam 0.5 mg tablet 0.5 mg PO DAILY PRN PRN (Reason: Anxiety) Referrals / Follow Up: Mihir Glover MD [Primary Care Provider] - Disposition Disposition (needs filled in before D/C Order can be placed): Home, Self Care
--- NOTE | 2022-02-05 15:04 | PCM.OPRPT ---
Problems Associated Problem List Diagnoses (1) Abnormal uterine bleeding (AUB): Report of Operation Date of Procedure: 02/05/22 Pre-Operative Diagnosis: abnormal uterine bleeding Post-Operative Diagnosis: same Surgery/Procedure Performed:: hysteroscopy D&C with Marcella endometrial ablation Description of Surgical Findings:: Normal cervix and vagina. Lush endometrium. No discrete polyps or focal findings noted. Surgeon: Flor Castro counselor education professor: None Type of Anesthesia: MAC/Supplemental/Local Anesthesiologist: Leann Magana Special Medications: none Specimen's removed: endometrial curettings Drains: none Estimated Blood Loss (mL): 10 Fluids Replaced: 900 Description of Procedure: The patient was taken to the OR where she was prepped and draped in dorsal lithotomy position. The weighted speculum was placed in the vagina and the anterior lip of the cervix was grasped with a single-tooth tenaculum. A paracervical block was administered with 1% lidocaine with 1-100,000 epinephrine solution. The cervix was dilated serially with Hegar dilators. The 5mm hysteroscope was placed into the uterine cavity and the above findings were noted. Bilateral tubal ostia were identified. The uterus sounded to 9.5cm and the cervical length was 4cm. The endometrial cavity length was 5.5cm. The hysteroscope was removed. A gentle sharp curettage was done of the uterine cavity. The specimen was handed off and sent to pathology. The Marcella device was set to 5.5 cm. The instrument was then seated into the endometrial cavity and the indicator was in the green. The cervical seal balloon was inflated and the uterine integrity test was passed. The ablation procedure was initiated and completed without interruption. During the ablation procedure gentle traction was held on the tenaculum and the Marcella device was held up against the uterine fundus. When the ablation procedure was completed the Marcella was removed. The tenaculum was removed and the tenaculum site was noted to be hemostatic. All sponge and needle counts were correct. A vaginal sweep was performed by me. The patient was awakened and taken to the recovery room in stable condition. Grafts/Implants Used: none Procedure Start Time: 15:14 Procedure Stop Time: 15:27 Complications none Admit VTE Documentation VTE Present on Admission: No VTE Mechan Device Prophylaxis: SCD's VTE Pharm Prophylaxis ordered?: No Reason prophylaxis not ordered:: Procedure Not Indicated
[2022-02-05] MEDS: Lidocaine 1% /Epi 1:100 (20ml) 20 ML Vial (15:12)
[2022-02-05] MEDS: oxyCODONE 5 MG Tablet PO (16:57)
== END 2022-02-05 17:48 | disposition home or self-care (01) ==
LOC: SDC 12:01 → AC 12:19
PROVIDERS: PCP Internal Medicine; Referring Provider Obstetrics & Gynecology; Visit Provider Obstetrics & Gynecology
PROC: 0U5B8ZZ Destruction of Endometrium, Via Natural or Artificial Opening Endoscopic (ICD-10-PCS; CPT 58558; principal; 2022-02-05 13:45)
DX: N88.8 Other specified noninflammatory disorders of cervix uteri (principal); N93.9 Abnormal uterine and vaginal bleeding, unspecified; G47.30 Sleep apnea, unspecified; F12.90 Cannabis use, unspecified, uncomplicated; Z87.891 Personal history of nicotine dependence; Z95.810 Presence of automatic (implantable) cardiac defibrillator
CPT/HCPCS: 58262; 58558; 00944; 81025; 85027; 88305; J7120; J2405

== ENCOUNTER 2022-06-16 10:41 | Emergency (ER) | payer MEDICAID, SELFPAY ==
[2022-06-16 10:42] VITALS: BP 141/91; PULSE 79; RESP 18; TEMP 36.6; O2SAT 98; BMI 32.0
--- NOTE | 2022-06-16 12:11 | EX.ED.DYSGE1 ---
HPI History of Present Illness Chief Complaint: Sore Throat Informant: patient Narrative Narrative: Patient is a 46-year-old female with history of congenital heart block status post ICD placement with no further issues and anxiety presenting with 3 to 4 days of right-sided ear fullness and sore throat. She has been trying gargling salt water as well as [id number] ibuprofen with no relief. She did not sleep well last night and has had increased pain this point when she woke up. She also noted increased redness on the right side of her throat. She denies any fevers. Denies any other systemic symptoms including cough, nausea or vomiting. Denies any sick contacts. No other complaints at this time. No she is very anxious about being in the emergency room at this time. [facility] Medical History Bulimia Cardiology follow-up encounter Deliberate self-cutting Easy bruising Former smoker Heartburn History of complete heart block History of echocardiogram History of edema History of pacemaker Iron deficiency anemia Marijuana use Migraine headache Panic anxiety syndrome PTSD (post-traumatic stress disorder) Restless legs Sleep apnea Wears dentures Wears glasses Home Medications ondansetron 4 mg disintegrating tablet 4 mg PO Q8H PRN PRN Nausea #10 tabs 03/19/21 [Rx Last Taken Unknown] lorazepam 0.5 mg tablet 0.5 mg PO DAILY PRN PRN Anxiety 01/30/22 [History Last Taken 02/05/22] Allergy/AdvReac Type Severity Reaction Status Date / Time tramadol Allergy Nausea Verified 06/16/22 10:43 Antihistamines - AdvReac Other Verified 06/16/22 10:43 Ethylenediamine naproxen AdvReac Other Verified 06/16/22 10:43 paroxetine HCl [From Paxil] AdvReac Other Verified 06/16/22 10:43 Family History Other Cardiac defibrillator in place Surgical History History of cardiac catheterization History of implantable cardiac defibrillator (ICD) Social History Smoking Status: Current some day smoker tobacco type: cigarettes ROS ROS ED Constitutional Constitutional ED: Denies chills or fever(s) Eyes Eyes: Denies change in vision ENT ENT ED: Reports ear pain right and sore throat; Denies rhinorrhea Cardiovascular Cardiovascular: Denies chest pain or palpitations Respiratory/Chest Respiratory/Chest: Denies cough or dyspnea Gastrointestinal Gastrointestinal: Denies abdominal pain, nausea or vomiting Genitourinary Genitourinary ED: Denies dysuria Musculoskeletal Musculoskeletal: Reports neck pain; Denies arthralgias or myalgias Integumentary Denies rash Neurologic Neurologic: Denies headache(s) Psychiatric Psychiatric: Reports anxiety Hematologic/Lymphatic Hematologic/Lymphatic: Denies easy bleeding or easy bruising EXAM Physical Exam Const Vital Signs: 06/16/22 10:42 06/16/22 13:46 Temperature 97.8 F Temperature Source Temporal Pulse Rate 79 Respiratory Rate 18 16 Blood Pressure 141/91 H Blood Pressure Mean 107 Pulse Ox 98 Oxygen Delivery Method Room Air Positive well nourished and well developed General Appearance ED: well developed and NAD HEENT Reports TM's clear and moist mucous membranes HEENT Narrative: Normal nasal mucosa. Erythema of the right tonsillar pillar and the right right soft pillar. No uvular deviation. No exudate or abscess appreciated. Normal phonation. Tympanic Membrane ED: Yes TM's clear Eyes PERRL and EOMs intact bilaterally Neck supple Neck Narrative: Bilateral lymphadenopathy of the anterior cervical chain, right tender compared to the left. Chest Wall inspection of chest normal and palpation of chest normal Resp normal respiratory effort and clear to auscultation bilaterally Cardio regular rate, regular rhythm and no murmurs GI non-tender Inspection: Negative for abdominal distention Neuro oriented x3 Sensorium / Orientation: alert Motor Exam: Negative for general weakness Psych mental status grossly normal Mood & Affect: anxious Skin no rashes or lesions noted MDM MDM MDM Narrative Medical decision making narrative: Patient is evaluated for right-sided ear pain and throat pain. Patient mentions very anxious about being in the ER and has a lot of underlying anxiety. Patient is she is ordered Decadron and Tylenol for symptom control in the ER. Clinically she has a pharyngitis. Strep swab, COVID and flu swab are obtained per nursing protocol. These were all negative. Strep swab culture is pending. Patient refuses the Decadron because of her history of anxiety and afraid that I will give her panic attack. Patient has no signs of airway obstruction. Uvula is midline I do not suspect peritonsillar or retropharyngeal abscess at this time. She is normal range of motion of her neck. Will be treated symptomatically at this time especially she does not have any fever, tachycardia or other corresponding vital signs consistent with more systemic infection. Patient not have any hot potato voice or trismus. I do not think any advanced imaging is indicated at this time. Patient counseled that if her strep culture comes back positive she will be contacted for antibiotics. Otherwise treatment is symptomatic and her symptoms likely are self-limiting. Patient verbalizes agreement understand this plan. Discharged home in stable condition. Given return precautions. Lab Data Attestation: I reviewed the patient's lab results. Discharge Plan Triage Chief Complaint: Sore Throat ED Provider: Desi Mcghee Dx/Rx/DC Orders Clinical Impression: Pharyngitis, acute Instructions: ED Pharyngitis, Report Pending Prescriptions: No Action ondansetron [ondansetron] 4 MG tablet 4 mg PO Q8H PRN PRN (Reason: Nausea) Qty: 10 0RF lorazepam 0.5 mg tablet 0.5 mg PO DAILY PRN PRN (Reason: Anxiety) Primary Care Provider: Mihir Glover Referrals: Mihir Glover MD [Primary Care Provider] - Activity Restrictions/Additional Instructions: Alternate ibuprofen and Tylenol. At this time I do not think you require antibiotics and likely this is viral in nature. If you develop a high fever, difficulty swallowing or shortness of breath or increased swelling on the right side of your throat please return to the ER for repeat evaluation. We will contact you if you require antibiotics based on your strep culture. Your initial testing was all negative including rapid strep test, influenza and COVID test Disposition Disposition: Home, Self Care Discharge Date/Time: 06/16/22 13:46
[2022-06-16] MEDS: Acetaminophen 325 MG Tablet 650 MG PO (12:23)
[2022-06-16 13:46] VITALS: RESP 16
== END 2022-06-16 13:46 | disposition home or self-care (01) ==
PROVIDERS: Emergency Provider Emergency Medicine; PCP Internal Medicine; Visit Provider Emergency Medicine
DX: J02.9 Acute pharyngitis, unspecified (principal); G47.30 Sleep apnea, unspecified; F17.210 Nicotine dependence, cigarettes, uncomplicated; Z95.810 Presence of automatic (implantable) cardiac defibrillator
CPT/HCPCS: 87428; 87880; 99283

== ENCOUNTER 2023-04-15 13:18 | Emergency (ER) | payer MEDICAID, SELFPAY ==
[2023-04-15 13:19] VITALS: BP 137/80; PULSE 78; RESP 16; TEMP 36.7; O2SAT 100; BMI 32.6
[2023-04-15 14:27] LABS: Anion Gap 6 (5-15); BUN 17 mg/dL (7-18); BUN/Creat Ratio 19.5 RATIO (10-20); Calcium,Total 8.2 mg/dL (8.5-10.1); Chloride 108 mmol/L (98-107); Creatinine, Serum 0.87 mg/dL (0.55-1.02); EST Glomerular Filtration Rate 74 mL/min (>60); Est Glom Filt Rate - Afr Amer 89 mL/min (>60); Estimated Creatinine Clearance 83.54 ml/min; Glucose 103 mg/dL (74-106); Potassium 3.7 mmol/L (3.5-5.1); Sodium Level 139 mmol/L (136-145)
--- NOTE | 2023-04-15 16:47 | EDS_ITS ---
HPI History of Present Illness Chief Complaint: Chest Other Informant: patient Narrative Narrative: Patient presents with a hot sensation around her back and chest. Patient states she never had chest pain pressure or tightness at any time. But she woke up this morning. She had what she felt as a sensation of heat wrap around her chest and upper back. No shortness of breath nausea vomiting diaphoresis. No palpitations with this. 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 She has had heart catheterizations that show normal vascular structures though. She states she does have a history of severe anxiety and will get reactions like this. This was similar but it seemed to be hotter than normal to her. She feels normal now. She states she has a lot of reasons to be very stressed right now. [facility] Medical History Bulimia Cardiology follow-up encounter Deliberate self-cutting Easy bruising Former smoker Heartburn History of complete heart block History of echocardiogram History of edema History of pacemaker Iron deficiency anemia Marijuana use Migraine headache Panic anxiety syndrome PTSD (post-traumatic stress disorder) Restless legs Sleep apnea Wears dentures Wears glasses Home Medications ondansetron 4 mg disintegrating tablet 4 mg PO Q8H PRN PRN Nausea #10 tabs 03/19/21 [Rx Last Taken Unknown] lorazepam 0.5 mg tablet 0.5 mg PO DAILY PRN PRN Anxiety 01/30/22 [History Last Taken 02/05/22] Allergy/AdvReac Type Severity Reaction Status Date / Time sertraline [From Zoloft] Allergy Mild Other Verified 04/15/23 13:21 tramadol Allergy Nausea Verified 04/15/23 13:21 Antihistamines - AdvReac Other Verified 04/15/23 13:21 Ethylenediamine naproxen AdvReac Other Verified 04/15/23 13:21 paroxetine HCl [From Paxil] AdvReac Other Verified 04/15/23 13:21 Family History Other Cardiac defibrillator in place Surgical History History of cardiac catheterization History of implantable cardiac defibrillator (ICD) Social History Smoking Status: Current some day smoker tobacco type: cigarettes ROS ROS ED ROS Narrative A complete review of systems was performed and is negative except as documented in the history of present illness. Some specific details below. Constitutional: No recent fevers or chills. She felt fine before the event when she went to bed. She feels fine now. ENT: No difficulty swallowing. No swelling. No pain. No reflux symptoms. CV: See history of present illness. Respiratory: Denies dyspnea or cough. She states she thought this might be related to COVID because she was exposed to COVID a few days ago. GI: No abdominal pain. No nausea vomiting diarrhea. No blood in stool. : No frequency dysuria or hematuria. Musculoskeletal: No recent trauma. No pains. No swelling. Skin: No rash. Nondiaphoretic. She did not get flushed or hives. Neuro: No weakness or numbness. Endocrine: No polyuria or polydipsia. EXAM Physical Exam Narrative Exam Narrative: CONSTITUTIONAL: Patient is nontoxic in appearance. The patient looks comfo rtable. Work of breathing looks normal. HEENT: No notable trauma. Mucous membranes moist. No sinus tenderness. No indication of pain with swallowing. EYES: No conjunctival injection. No proptosis. NECK:No JVD. No stridor. CARDIOVASCULAR: Regular rate. Regular rhythm. No notable murmur. No JVD. ICD/Pacer is palpable in left upper chest RESPIRATORY: No respiratory distress. Breathing is unlabored. No wheezes. No rhonchi. No rales. No pain with a deep breath. No chest wall tenderness. Saturations are normal at 100% on room air showing no hypoxia GASTROINTESTINAL: Not distended. Bowel sounds are normal. No tenderness. GENITOURINARY: No CVA tenderness. MUSCULOSKELETAL: Atraumatic. No peripheral edema. No cord. No tenderness along the deep venous system. No asymmetry. No distended veins. NEUROLOGICAL: Patient is alert and appropriate. No focal deficit noted. SKIN: No noted rashes. No diaphoresis. PSYCHIATRIC: Patient is calm. Mood is appropriate. Const Vital Signs: 04/15/23 13:19 04/15/23 17:18 Temperature 98.1 F Temperature Source Temporal Pulse Rate 78 Respiratory Rate 16 Blood Pressure 137/80 H Blood Pressure Mean 99 Pulse Ox 100 Oxygen Delivery Method Room Air Room Air MDM MDM MDM Narrative Medical decision making narrative: Patient CBC is normal. Patient's electrolytes show no marked abnormalities. Patient's troponin is negative. Patient is currently asymptomatic, has normal exam and normal saturations with no chest pain or dyspnea I do not think an x-ray is needed. Patient had a hot sensation that was similar to but worse than her anxiety attack. Although she has a history of third-degree heart block, she has no history of cardiovascular disease. Her EKG is unchanged, her troponin is negative and her symptoms are resolved. I think she is appropriate for discharge. Lab Data Attestation: I reviewed the patient's lab results. Labs: Laboratory Results - last 24 hr 04/15/23 13:45 WBC 9.6 RBC 5.12 Hgb 14.2 Hct 43.8 MCV 85.5 MCH 27.7 MCHC 32.4 RDW Std Deviation 39.4 RDW Coeff of Hortencia 12.7 Plt Count 173 MPV 12.6 H Immature Gran % (Auto) 0.300 Neut % (Auto) 77.7 H Lymph % (Auto) 16.6 L [place] % (Auto) 4.9 Eos % (Auto) 0.1 Baso % (Auto) 0.4 Absolute Neuts (auto) 7.5 Absolute Lymphs (auto) 1.60 Nucleated RBC % 0 Sodium 139 Potassium 3.7 Chloride 108 H Carbon Dioxide 25.0 Anion Gap 6 BUN 17 Creatinine 0.87 Estim Creat Clear Calc 83.54 Est GFR (MDRD) Af Amer 89 Est GFR (MDRD) Non-Af 74 BUN/Creatinine Ratio 19.5 Glucose 103 Calcium 8.2 L Troponin I High Sens 14 EKG Initial EKG: Comments: My independent interpretation of patient's EKG shows an atrially sensed ventricularly paced rhythm. This is similar to 17 November 2021. Discharge Plan Triage Chief Complaint: Chest Other ED Provider: Cornelius Aguiar Dx/Rx/DC Orders Clinical Impression: History of anxiety, Feeling of warmness, ICD (implantable cardioverter- defibrillator) in place Instructions: ED Chest Pain, Uncertain Cause Prescriptions: No Action ondansetron [ondansetron] 4 MG tablet 4 mg PO Q8H PRN PRN (Reason: Nausea) Qty: 10 0RF lorazepam 0.5 mg tablet 0.5 mg PO DAILY PRN PRN (Reason: Anxiety) Primary Care Provider: Mihir Glover Referrals: Mihir Glover MD [Primary Care Provider] - 3-5 Days Disposition Disposition: Home, Self Care
[2023-04-15 17:16] LABS: Troponin-I HS 14 pg/mL (3.0-54.0)
[2023-04-15 17:21] LABS: Absolute Neutrophil Count 7.5 X10^3/uL (2.0-7.7); Basophil# 0.04 X10^3/uL; Basophil% 0.4 % (0-1); Eosinophil# 0.01 X10^3/uL; Eosinophils% 0.1 % (0-5); Hematocrit 43.8 % (37-47); Hemoglobin 14.2 g/dL (12.0-15.0); Lymphocyte % 16.6 % (19-41); Mean Corp Hgb Conc 32.4 g/dL (32-36); Mean Corpuscular Hgb 27.7 pg (27.0-32.0); Mean Corpuscular Volume 85.5 fL (81-99); Mean Platelet Vol. 12.6 fl (6.2-12.0); Monocyte# 0.47 X10^3/uL; Monocyte% 4.9 % (0-10); NRBC Flagged by Analyzer 0 % (0-5); Neutrophil # 7.46 X10^3/uL (2.7-7.7); Neutrophil % 77.7 % (47-70); Platelet Count 173 K/mm3 (150-450); RBC Distribution Width CV 12.7 % (11.6-14.6); RBC Distribution Width SD 39.4 fl (35.1-43.9); Red Blood Count 5.12 M/mm3 (4.2-5.4); White Blood Count 9.6 K/mm3 (4.4-11.0)
== END 2023-04-15 17:44 | disposition home or self-care (01) ==
PROVIDERS: Emergency Provider Emergency Medicine; PCP Internal Medicine; Visit Provider Emergency Medicine
DX: Z95.810 Presence of automatic (implantable) cardiac defibrillator (principal); F41.9 Anxiety disorder, unspecified; F17.210 Nicotine dependence, cigarettes, uncomplicated; G47.30 Sleep apnea, unspecified
CPT/HCPCS: 80048; 84484; 85025; 87811; 93005; 99283

== ENCOUNTER 2023-07-18 15:24 | Emergency (ER) | payer MEDICAID, SELFPAY ==
[2023-07-18 15:27] VITALS: BP 137/87; PULSE 71; RESP 18; TEMP 36.5; O2SAT 100; BMI 32.0
[2023-07-18] MEDS: Famotidine 20 MG Tablet 40 MG PO (16:03)
--- OUTSIDE RECORDS SUMMARY | 2023-07-18 16:14 | XMS RPT_ITS | CCD ---
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 Name Role Phone Mihir Lock MD Primary Care Provider Alexis Greenfield DO L Unavailable Love Galvez Primary Care Provider Pcp, No Primary Care Provider Unavailabl e Pcp, No Primary Care Provider Unavailabl e Alexis Greenfield DO L Unavailable Flores Chao MD Primary Care Provider Mihir Lock MD Primary Care Provider AmAlexis mathias DO L Unavailable Alexis Greenfield DO Unavailable Mihir Lock MD Primary Care Provider Amalnader PETERSON Alexis L Unavailable SARAH COX Attending Unavailable HAYDE, RENÉ Primary Care Unavailable LOCK, RENÉ Primary Care Unavailable OLDER, GILL Attending Unavailable LOCK, RENÉ Primary Care Unavailable OLDER, GILL Referring Unavailable DAVID ROSENBERG Attending Unavailable HAYDE, RENÉ Primary Care Unavailable OLDER, GILL Referring Unavailable HAYDE, RENÉ Primary Care Unavailable HAYDE, RENÉ Attending Unavailable OLDER, GILL Attending Unavailable LOCK, RENÉ Primary Care Unavailable LOCK, RENÉ Primary Care Unavailable SARAH COX Attending Unavailable OLDER, GILL Referring Unavailable HAYDE, RENÉ Primary Care Unavailable OLDER, GILL Attending Unavailable HAYDE, RENÉ Primary Care Unavailable OLDER, GILL Referring Unavailable SAGE COXIE Referring Unavailable HAYDE, MIHIR Joaquin Primary Care Unavailable LOCK, MIHIR Joaquin Primary Care Unavailable OLDER, GILL Attending Unavailable LOCK, RENÉ Primary Care Unavailable OLDER, GILL Referring Unavailable LOCK, RENÉ Primary Care Unavailable OLDER, GILL Referring Unavailable LOCK, MIHIR Joaquin Referring Unavailable LOCK, MIHIR Joaquin Primary Care Unavailable MAKEDA, FAIZA Whiteside Attending Unavailable MIHIR LOCK MD Consulting Unavailable MIHIR LOCK MD Referring Unavailable MAKEDA, FAIZA Whiteside Admitting Unavailable MAKEDA, FAIZA Whiteside Primary Care Unavailable PROVIDER, UNKNOWN Consulting Unavailable MIHIR LOCK Consulting Unavailable MAKEDA, FAIZA Whiteside Admitting Unavailable MAKEDA, FAIZA Whiteside Primary Care Unavailable MAKEDA, FAIZA Whiteside Attending Unavailable PROVIDER, UNKNOWN Consulting Unavailable SWAPNA MANN Admitting Unavailable SWAPNA MANN Primary Care Unavailable MIHIR LOCK Consulting Unavailable SWAPNA MANN Attending Unavailable PROVIDER, UNKNOWN Consulting Unavailable MIHIR LOCK Consulting Unavailable ROX DACOSTA DO Admitting Unavailable ROX DACOSTA DO Primary Care Unavailable ROX DACOSTA DO Attending Unavailable PROVIDER, UNKNOWN Consulting Unavailable Allergies Allergy Classification Reported Allergen(s) Allergy Type Date of Onset Reaction(s) Facility (20 sources) Latex; Translations: [LATEX] Propensity to adverse reactions 7 [facility] Work Phone: (20 sources) Lisinopril; Translations: [LISINOPRIL] Drug Allergy 3 Other: See Comments [facility] Work Phone: (20 sources) Naproxen; Translations: [NAPROXEN] Drug Allergy 5 [facility] (20 sources) PARoxetine; Translations: [PAROXETINE] Drug Allergy 5 [facility] (20 sources) Adhesive Tape-Silicones; Translations: [ADHESIVE TAPE-SILICONES] Propensity to adverse reactions 7 [facility] Work Phone: (20 sources) diphenhydrAMINE ; Translations: [DIPHENHYDRAMIN E] Drug Allergy 2 Other: See Comments [facility] (1 source) Serotonin; Translations: [SEROTONIN] Drug Allergy 3 [facility] Repository (1 source) Lisinopril Drug Allergy [facility] Repository (1 source) Naproxen Drug Allergy [facility] Repository (1 source) Naproxen Drug Allergy [facility] Rep[facility] (1 source) PARoxetine Drug Allergy [facility] Repository (1 source) Sertraline Drug Allergy [facility] Repository Medications Current Medications Medication Drug Class(es) Dates Sig (Normalized) Sig (Original) ferrous sulfate 325 mg oral tablet (16 sources) Start: 12-04-2021 End: 01-03-2022 take 1 tablet by mouth three times daily at mealtime ferrous sulfate 325 mg (65 mg iron) tablet Take 1 tablet by mouth three times daily with meals. 90 tablet 4 12/04/2021 01/03/2022 Active Completed/Discontinued Medications Medication Drug Class(es) Dates Sig (Normalized) Sig (Original) 200 actuat albuterol 0.09 mg/actuat metered dose inhaler (1 source) beta2-Adrenergic Agonist Start: 07-03-2011 End: 12-01-2018 take 2 puff(s) by inhalation every four hours as needed for wheezing albuterol 90 mcg/actuation INHALATION Aero Indications: Unspecified asthma(493.90) Inhale 2 Puffs as instructed every 4 hours as needed (wheezing, SOB). 1 g 1 07/03/2011 12/01/2018 Discontinued (Course of therapy completed) Problems Active Problems Problem Classification Problem Date Documented Da te Episodic/Chronic Asthma (20 sources) Asthma; Translations: [Unspecified asthma, uncomplicated] 02-19-2016 Chronic Cardiac and circulatory congenital anomalies (20 sources) Congenital complete atrioventricular heart block; Translations: [Congenital heart block] Onset: 6 12-01-2018 Chronic Conduction disorders (20 sources) Automatic implantable cardiac defibrillator in situ; Translations: [Presence of automatic (implantable) cardiac defibrillator] Onset: 0 03-26-2021 Chronic Deficiency and other anemia (20 sources) Iron deficiency anemia due to blood loss; Translations: [Iron deficiency anemia secondary to blood loss (chronic)] Onset: 2 Chronic Deficiency and other anemia (1 source) Hemoglobinopathy; Translations: [Other hemoglobinopathies] Chronic Deficiency and other anemia (1 source) Anemia; Translations: [Anemia, unspecified] Episodic Endometriosis (20 sources) Uterine adenomyosis; Translations: [Endometriosis of uterus] Onset: 2 Chronic Esophageal disorders (1 source) Gastro-esophageal reflux disease without esophagitis; Translations: [Gastroesophageal reflux disease without esophagitis] Onset: 3 Chronic Headache; including migraine (2 sources) Migraine with aura; Translations: [Migraine with aura, not intractable, without status migrainosus] Onset: 3 Chronic Menstrual disorders (2 sources) Menometrorrhagia; Translations: [Excessive and frequent menstruation with irregular cycle] Chronic Mood disorders (20 sources) Bipolar disorder; Translations: [Bipolar disorder, unspecified] Onset: 9 12-01-2018 Chronic Other female genital disorders (20 sources) Abnormal uterine bleeding; Translations: [Abnormal uterine and vaginal bleeding, unspecified] Onset: 2 Chronic Other gastrointestinal disorders (1 source) Intestinal malabsorption; Translations: [Intestinal malabsorption, unspecified] Chronic Other gastrointestinal disorders (1 source) Constipation; Translations: [Constipation, unspecified] Episodic Other nutritional; endocrine; and metabolic disorders (20 sources) Metabolic syndrome X; Translations: [Metabolic syndrome] Onset: 6 06-12-2005 Chronic Other nutritional; endocrine; and metabolic disorders (20 sources) Obese class I; Translations: [Obesity, unspecified] Onset: 1 08-21-2020 Chronic Other screening for suspected conditions (not mental disorders or infectious disease) (4 sources) Patient encounter status; Translations: [Encounter for screening for malignant neoplasm of colon] Onset: 3 Episodic Milena-; endo-; and myocarditis; cardiomyopathy (except that caused by tuberculosis or sexually transmitted disease) (20 sources) Primary cardiomyopathy; Translations: [Cardiomyopathy, unspecified] 02-19-2016 Chronic Residual codes; unclassified (20 sources) Periodic limb movement disorder; Translations: [Periodic limb movement disorder] Onset: 1 08-23-2020 Chronic Thyroid disorders (1 source) Nontoxic single thyroid nodule; Translations: [Thyroid nodule] Onset: 3 Chronic Unclassified (1 source) Headaches; Translations: [Headaches] Onset: Past or Other Problems Problem Classification Problem Date Documented Da te Episodic/Chronic Conditions associated with dizziness or vertigo (1 source) Dizziness and giddiness; Translations: [Vertigo] Onset: 12-11-2022 Episodic Deficiency and other anemia (1 source) Anemia, unspecified; Translations: [Anemia, unspecified type] Onset: 09-02-2022 Episodic Gastrointestinal hemorrhage (2 sources) Hematochezia; Translations: [Melena] Onset: 09-04-2022 Episodic Headache; including migraine (1 source) Primary thunderclap headache; Translations: [Thunderclap headache] Onset: 01-06-2023 Episodic Other aftercare (1 source) Encounter for therapeutic drug level monitoring; Translations: [Medication monitoring encounter] Onset: 12-29-2022 Episodic Other gastrointestinal disorders (20 sources) Chronic constipation; Translations: [Other constipation] Onset: 02-19-2016 02-19-2016 Episodic Other gastrointestinal disorders (1 source) Constipation, unspecified; Translations: [Constipation, unspecified constipation type] Onset: 09-02-2022 Episodic Urinary tract infections (1 source) Urinary tract infection, site not specified; Translations: [Urinary tract infection without hematuria, site unspecified] Onset: 12-29-2022 Episodic Results Test Name Value Interpretation Reference Range Facil ity Vital Signs Date Time Vital Sign Value Performing Clinician Merlyn thurston 10-30-2022 11:14-0400 Body weight 99.34 kg Mihir Lock MD Work Phone: [facility] 10-30-2022 11:14-0400 Diastolic blood pressure 78 mm[Hg] Mihir Lock MD Work Phone: [facility] 10-30-2022 11:14-0400 Heart rate 70 /min Mihir Lock MD Work Phone: [facility] 10-30-2022 11:14-0400 Respiratory rate 14 /min Mihir Lock MD Work Phone: [facility] 10-30-2022 11:14-0400 SaO2% (BldA) [Mass fraction] 98 % Mihir Lock MD Work Phone: [facility] 10-30-2022 11:14-0400 Systolic blood pressure 124 mm[Hg] Mihir Lock MD Work Phone: [facility] 09-02-2022 11:53-0400 Body weight 98.88 kg Gill Older MUSICAL INSTRUMENTS ASSEMBLER.PAYROLL MACHINE OPERATOR Work Phone: [facility] 09-02-2022 11:53-0400 Diastolic blood pressure 86 mm[Hg] Gill Older MUSICAL INSTRUMENTS ASSEMBLER.PAYROLL MACHINE OPERATOR Work Phone: [facility] 09-02-2022 11:53-0400 Heart rate 68 /min Gill Older MUSICAL INSTRUMENTS ASSEMBLER.PAYROLL MACHINE OPERATOR Work Phone: [facility] 09-02-2022 11:53-0400 Respiratory rate 18 /min Gill Older MUSICAL INSTRUMENTS ASSEMBLER.PAYROLL MACHINE OPERATOR Work Phone: [facility] 09-02-2022 11:53-0400 Systolic blood pressure 134 mm[Hg] Gill Older MUSICAL INSTRUMENTS ASSEMBLER.PAYROLL MACHINE OPERATOR Work Phone: [facility] 12-30-2021 10:54-0400 Body weight 95.71 kg Flor Castro MD Work Phone: [facility] 12-30-2021 10:54-0400 Diastolic blood pressure 76 mm[Hg] Flor Castro MD Work Phone: [facility] 12-30-2021 10:54-0400 Systolic blood pressure 110 mm[Hg] Flor Castro MD Work Phone: [facility] 12-29-2021 14:58-0400 Body weight 95.98 kg Christine Glendale MUSICAL INSTRUMENTS ASSEMBLER.PAYROLL MACHINE OPERATOR Work Phone: [facility] 12-29-2021 14:58-0400 Diastolic blood pressure 72 mm[Hg] Christine Glendale MUSICAL INSTRUMENTS ASSEMBLER.PAYROLL MACHINE OPERATOR Work Phone: [facility] 12-29-2021 14:58-0400 Systolic blood pressure 108 mm[Hg] Christine Jake MUSICAL INSTRUMENTS ASSEMBLER.PAYROLL MACHINE OPERATOR Work Phone: [facility] 12-22-2021 13:10-0400 Body temperature 97.11 [degF] Treatment Wstr Work Phone: [facility] 12-22-2021 13:10-0400 Diastolic blood pressure 72 mm[Hg] Treatment Wstr Work Phone: [facility] 12-22-2021 13:10-0400 Heart rate 71 /min Treatment Wstr Work Phone: [facility] 12-22-2021 13:10-0400 Systolic blood pressure 140 mm[Hg] Treatment Wstr Work Phone: [facility] 12-18-2021 13:22-0400 Body temperature 97.81 [degF] Treatment Wstr Work Phone: [facility] 12-18-2021 13:22-0400 Diastolic blood pressure 73 mm[Hg] Treatment Wstr Work Phone: [facility] 12-18-2021 13:22-0400 Heart rate 72 /min Treatment Wstr Work Phone: [facility] 12-18-2021 13:22-0400 Systolic blood pressure 119 mm[Hg] Treatment Wstr Work Phone: [facility] 12-10-2021 13:37-0400 Body temperature 97.11 [degF] Treatment Wstr Work Phone: [facility] 12-10-2021 13:37-0400 Diastolic blood pressure 81 mm[Hg] Treatment Wstr Work Phone: [facility] 12-10-2021 13:37-0400 Heart rate 82 /min Treatment Wstr Work Phone: [facility] 12-10-2021 13:37-0400 Respiratory rate 20 /min Treatment Wstr Work Phone: [facility] 12-10-2021 13:37-0400 Systolic blood pressure 142 mm[Hg] Treatment Wstr Work Phone: [facility] 12-08-2021 10:15-0400 Diastolic blood pressure 83 mm[Hg] Treatment Wstr Work Phone: [facility] 12-08-2021 10:15-0400 Heart rate 72 /min Treatment Wstr Work Phone: [facility] 12-08-2021 10:15-0400 SaO2% (BldA) [Mass fraction] 100 % Treatment Wstr Work Phone: [facility] 12-08-2021 10:15-0400 Systolic blood pressure 134 mm[Hg] Treatment Wstr Work Phone: [facility] 12-08-2021 09:52-0400 Body temperature 97.59 [degF] Treatment Wstr Work Phone: [facility] 11-05-2021 10:07-0400 Body weight 95.71 kg Christine Jake MUSICAL INSTRUMENTS ASSEMBLER.PAYROLL MACHINE OPERATOR Work Phone: [facility] 11-05-2021 10:07-0400 Diastolic blood pressure 68 mm[Hg] Christine Glendale MUSICAL INSTRUMENTS ASSEMBLER.PAYROLL MACHINE OPERATOR Work Phone: [facility] 11-05-2021 10:07-0400 Systolic blood pressure 118 mm[Hg] Christine Glendale MUSICAL INSTRUMENTS ASSEMBLER.PAYROLL MACHINE OPERATOR Work Phone: [facility] Encounters Encounter Date Encounter Type Care Provider Facility Start: 04-17-2023 End: 04-17-2023 Emergency department patient visit MIHIR LOCK [facility] Start: 04-07-2023 End: 04-07-2023 ambulatory SARAH COX Facility:[facility] Start: 01-21-2023 End: 01-21-2023 ambulatory MIHIR LOCK Facility:[facility] Start: 01-08-2023 End: 01-08-2023 ambulatory MIHIR LOCK Facility:[facility] Start: 01-07-2023 End: 01-08-2023 ambulatory MIHIR LOCK Facility:[facility] Start: 01-06-2023 End: 01-06-2023 ambulatory SARAH SAN ANTONIOJASSI Facility:[facility] Start: 12-29-2022 End: 12-30-2022 ambulatory MIHIR LOCK Facility:[facility] Start: 12-22-2022 End: 12-22-2022 ambulatory MIHIR LOCK Facility:[facility] Start: 12-15-2022 End: 12-15-2022 Emergency department patient visit MIHIR LOCK [facility] Start: 12-11-2022 End: 12-12-2022 ambulatory GILL OLDER Facility:[facility] Start: 10-30-2022 End: 10-31-2022 ambulatory MIHIR LOCK Facility:[facility] Start: 10-30-2022 End: 10-30-2022 Patient encounter procedure Mihri Lock MD Work Phone: [facility] Procedures Date Procedure Procedure Detail Performing Clinician Start: 04-17-2023 Urinalysis FAIZA LOZANO Plan of Treatment Date Care Activity Detail Author Start: 10-28-2027 Urine microalbumin profile DTAP,TDAP,TD (2 - Td or Tdap) [facility] Start: 04-02-2026 LIPID SCREEN LIPID SCREEN [facility] Start: 09-16-2025 HPV TESTING HPV TESTING [facility] Start: 09-16-2025 PAP TESTING PAP TESTING [facility] Start: 09-02-2025 DIABETES SCREEN DIABETES SCREEN [facility] Start: 10-31-2023 ANNUAL PCP TEAM EDITOR NEWSPAPER [place] DISEASE VISIT ANNUAL PCP TEAM CHRONIC DISEASE VISIT [facility] Start: 09-03-2023 ANNUAL PCP TEAM EDITOR NEWSPAPER [place]ON DISEASE VISIT ANNUAL PCP TEAM CHRONIC DISEASE VISIT [facility] Start: 08-22-2023 DIABETES SCREEN DIABETES SCREEN [facility] Start: 01-08-2023 Influenza vaccination INFLUENZ A (Season Ended) [facility] Start: 09-02-2022 End: 11-02-2022 Comprehensive metabolic 2000 panel - Serum or Plasma [facility] Work Phone: Immunizations Immunization Date Immunization Notes Care Provider Fa cility 06-07-2019 influenza, injectabl e, quadrivalent, contains preservative Christine Glendale MUSICAL INSTRUMENTS ASSEMBLER.PAYROLL MACHINE OPERATOR Work Phone: [facility] Work Phone: 10-27-2017 tetanus toxoid, redu david diphtheria toxoid, and acellular pertussis vaccine, adsorbed Christine Glendale MUSICAL INSTRUMENTS ASSEMBLER.PAYROLL MACHINE OPERATOR Work Phone: [facility] Work Phone: 01-21-2006 hepatitis B vaccine, adult dosage Christine Jake MUSICAL INSTRUMENTS ASSEMBLER.PAYROLL MACHINE OPERATOR Work Phone: [facility] Work Phone: 01-21-2006 hepatitis B vaccine, unspecified formulation Derrick Hinds DO Work Phone: [facility] 06-12-2005 pneumococcal polysaccharide vaccine, 23 valent Christine Glendale MUSICAL INSTRUMENTS ASSEMBLER.PAYROLL MACHINE OPERATOR Work Phone: [facility] 06-12-2005 tetanus and diphther ia toxoids, adsorbed, preservative free, for adult use (2 Lf of tetanus toxoid and 2 Lf of diphtheria toxoid) Christine Glendale MUSICAL INSTRUMENTS ASSEMBLER.PAYROLL MACHINE OPERATOR Work Phone: [facility] Payers Date Payer Category Payer Medicaid [id number] 2014 Medicaid [employer] [facility] [id number] 2014-Present [phone] [address] [place] [address] Medicaid [id number] 2007 Medicaid [id number] 1975 Unknown [id number] 1975 Unknown [id number] 1975 Unknown [id number] 1975 Unknown [id number] Unknown [id number] Social History Date Type Detail Facility Start: 12-01-2018 End: 12-29-2021 Tobacco smoking status NHIS Ex-smoker [facility] Work Phone: End: 12-08-2017 History of tobacco use Current smoker [facility] Work Phone: End: 12-08-2017 History of tobacco use Cigarette Smoker [facility] Work Phone: Start: 12-01-2018 End: 12-29-2021 Cigarettes smoked current (pack per day) - Reported 2 [facility] Start: 12-01-2018 End: 12-29-2021 Tobacco use and exposure Smokeless tobacco non-user [facility] Work Phone: Start: 03-26-2021 End: 09-02-2022 Alcohol intake Current drinker of alcohol (finding) [facility] Start: 06-05-2019 History SDOH Alcohol Frequency 1 [facility] Start: 06-05-2019 History SDOH Social Connections Phone 5 [facility] Start: 06-05-2019 History SDOH Social Connections Membership 2 [facility] Start: 06-05-2019 History SDOH Physica l Activity DPW 0 [facility] Start: 06-05-2019 History SDOH Stress 4 [facility] Start: 06-05-2019 History SDOH Financial 3 [facility] Start: 06-04-2019 Education 14 [facility] Start: 1975 Sex Assigned At Female C [facility] Start: 03-03-2021 End: 01-30-2022 Exposure to SARS-CoV-2 (event) Not sure [facility] Start: 10-26-2011 Tobacco smoking stat us HIIS Smokes tobacco daily [facility] Start: 08-24-2006 End: 05-12-2007 Alcohol intake Current non-drinker of alcohol (finding) [facility] Start: 10-30-2022 Alcohol intake Ex-drinker (finding) [facility] Clinical Notes 09-01-2012 to 04-07-2023 Patient InstructionsVictor Jemal Lock MD - 10/30/2022 11:49 AM EDTPatient Kenton Linares APRN.CNP - 09/02/2022 12:03 PM EDTTelephone Encounter - Baylee Islas RN - 02/16/2022 11:40 AM EDT Note Date & Type Note Facility 04-07-2023 Note HNO ID: [id number] Author: Sarah Cox PA-C Service: ? Author Type: Physician Group Billing Coordinator Type: Progress Notes Filed: 04/07/2023 11:12 AM Note Text: [facility] Follow up CC: Headache Follow up Last Visit: 12/22/22 Assessment AND Plan: Michell Wooten is a 47 year old right-handed adult with a history of PLMD, cardiomyopathy, third-degree heart block, ICD placement, constipation, bipolar disorder, obesity, asthma. Michell Wooten's examination demonstrates no neurologic abnormalities, patient is tearful throughout interview. Negative HINTS exam. Patient with headaches since she was a teenager, onset with puberty. Denies any medications to treat this, was prescribed Imitrex but did not take this secondary to her heart condition. Notes that the headaches are worsening in severity, notes that her aura has changed as well. Patient is consistent with hemiplegic migraines as she has acute weakness associated with her headaches. CT of the brain was negative. Patient does have cardioverter-defibrillator in place and was told that she cannot have MRIs. Did have Patient also endorsing headache with Valsalva, bowel movement, exertion and intercourse. Sexual headache is with the onset of orgasm, occurs consistently, never been elevated. Ideally, would like to obtain MRI to evaluate for any intracranial process including CSF abnormality, but unable to do so. We will obtain CTA head and neck due to sexual headache, sudden severe, to rule any aneurysm versus dissection. Kidney function is normal. Regarding treatment of headaches, patient only having roughly 2 to 3-month, as she has hemiplegic migraines, triptans are contraindicated. Additionally, due to her cardiac history, would avoid triptan therapy as well. We will prescribe Nurtec 75 mg to take with the onset of headache. Discussed common side effects, patient agrees and understands. Recently, patient states that she has issues with constipation, discussed magnesium treatment for both constipation and migraines, patient agrees and like to try this. Patient also reporting room spinning dizziness, likely vertigo. Not related to her migraines, no headache following her dizziness. Negative hints exam today. Will have patient undergo vestibular battery testing to evaluate for central versus peripheral cause. Nystagmus on exam today. Patient agreeable to treatment plan of care at this time, all questions were answered. Patient to follow-up in 3 months or sooner should symptoms change or worsen. Michell was seen today for new patient evaluation. Today: Patient is here for headache/migraine follow up. Last seen 12/22/22 for migraine. 2-3 headache days a month with many symptoms. Patient with defib in place, no MRIs. BARRIGA with valsalva and sexual intercourse. Ordered CTA head and neck, showed thyroid nodule. Started nurtec and referred to vestibular therapy. US of nodule recommended FU in one year, referred to general surgery for further eval. Since last visit headaches have improved in intensity but not frequency. Still getting about 2-3 migraines a month preceded by an aura. Occasionally she will get just an aura without any headache afterwards but this is very infrequent. Also notes that since the beginning of the year she has been getting some stiffness in her shoulders and neck, this will occasionally radiate to the back of the head on the left side and to the forehead. Only on the left side, no other symptoms associated with this. Much milder than her normal migraines. Did try the magnesium, states that it made her too sleepy. Is able to recognize a prodrome before her migraines typically start, states that she begins to feel very anxious, confused. Still experiencing significant unilateral weakness and paresthesias with her migraines, but no facial droop. No new symptoms with her headaches. Is following with her primary care for her thyroid nodule. Current Headache treatment Preventative: supplements Abortive: Nurtec, Tylenol and Ativan Medications effective? Did not get Nurtec # of doses of abortive medications per month: Twice Total headache days per month: 2-3 Total headache attacks per month: 2-3 Headache free days: Yes Duration of attacks: 2-3 hours Severity of headaches? Moderate, improved Location: sides of head. Aura: half sigala loss of vision Accompanying symptoms: photophobia, phonophobia, osmophobia, nausea, vomiting, vertigo, weakness, numbness localized, blurred vision, nasal congestion, language disturbance, confusion, agitation, neck pain, worse with movement. Quality:pounding and throbbing, pressure afterwards. Worse with activity: Yes Pain today: 0/10 Triggers: foods (dairy, cheese, perseveratives). Prodrome:anxious . Tobacco Use: Previously Alcohol Use: No Caffeine:No Prior Therapies Nurtec Tylenol Ativan Triptans- avoid due to cardiac (more content not included)... [facility] 01-21-2023 Note HNO ID: [id number] Author: Aisha Campbell Mammo Tech Service: ? Author Type: Senior Research Scientist Type: Progress Notes Filed: 01/21/2023 1:03 PM Note Text: Radiology Service Progress Note PATIENT NAME: Michell Wooten DATE OF SERVICE: January 21, 2023 TIME: 12:46 PM PATIENT IDENTITY VERIFICATION COMPLETED USING TWO (2) IDENTIFIERS: Name and Date of confirmed by patient verbally. FALL SCREENING: Has the patient had 2 falls in the last year or 1 fall with injury or currently using an Ambulatory Assistive Device (Walker, Cane, Wheelchair, Crutches, etc.)? No PATIENT GENDER DATA: Female. status: : No status: NO. PATIENT RELEVANT IMPLANT DATA REVIEWED: Not Applicable RADIOLOGY DEPARTMENT: Mammography PERIPHERAL IV DATA: Not applicable SIGNED BY: Ambrocio Peralta January 21, 2023 12:46 PM [facility] 01-08-2023 Note HNO ID: [id number] Author: Shanta Sarmiento RDMS Service: ? Author Type: Senior Research Scientist Type: Progress Notes Filed: 01/08/2023 2:53 PM Note Text: Radiology Service Progress Note PATIENT NAME: Michell Wooten DATE OF SERVICE: January 08, 2023 TIME: 2:52 PM PATIENT IDENTITY VERIFICATION COMPLETED USING TWO (2) IDENTIFIERS: Name and Date of confirmed by patient verbally. FALL SCREENING: Has the patient had 2 falls in the last year or 1 fall with injury or currently using an Ambulatory Assistive Device (Walker, Cane, Wheelchair, Crutches, etc.)? No PATIENT GENDER DATA: other PATIENT RELEVANT IMPLANT DATA REVIEWED: Not Applicable RADIOLOGY DEPARTMENT: Ultrasound PERIPHERAL IV DATA: Not applicable SIGNED BY: Shanta Sarmiento RDMS January 08, 2023 2:52 PM [facility] 01-07-2023 Note HNO ID: [id number] Author: Gill Linares APRN.LEIF Service: ? Author Type: Nurse Practitioner Type: Progress Notes Filed: 01/07/2023 11:20 AM Note Text: CC: Patient presents with: test results HPI Michell Wooten is a 47 year old adult who presents today for above. Patient had CTA neck and brain ordered by neurology to evaluate thunderclap headache. There was an incidental finding of 1.4 cm thyroid nodule on the right, recommending ultrasound. Patient reports fatigue, hair loss, difficulty losing weight. Denies constipation, diarrhea, weight gain, weight loss, dry skin, cold intolerance, heat intolerance, trouble swallowing, and neck pain/pressure REVIEW OF SYSTEMS See HPI PAST MEDICAL HISTORY Diagnosis Date Abnormal uterine bleeding (AUB) 12/30/2021 Adenomyosis 12/30/2021 Asthma Atrial tachycardia (HCC) 2009 Atrioventricular block, complete (HCC) 07/31/2005 3rd degree AVB Bipolar affective (HCC) Dr. 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 Last Assessment AND Plan: Underwent successful RA lead extraction and replacement yesterday, 09/01 CXR demonstrates no pneumothroax Device interrogation pending Headache(784.0) MIGRAINES WITH AURA Panic disorder without agoraphobia 11/19/2011 Follows at [facility] Bipolar disorder possible, to be r/o (09/25/11) Primary cardiomyopathy (HCC) non ischemic PTSD (post-traumatic stress disorder) 11/19/2011 Follows at [facility] Rectal bleeding 09/04/2022 Schizoaffective disorder Unspecified schizophrenia Schizophrenia PAST SURGICAL HISTORY Procedure Laterality Date ANES PERMANENT TRANSVENOUS PACEMAKER INSERTION 01/09/1992 Permanent Pacemaker DELIVERY ONLY TIMES THREE DANDC, DIAG AND/OR THERAPEUTIC 02/05/2022 HYSTEROSCOPY ENDOMETRIAL ABLATION 02/05/2022 Marcella ablation ICD GENERATOR CHANGE 07/19/2020 [facility] IMPLANTABLE CARDIOVERTER DEFIBRILLATOR 05/10/2009 defib/pacer- [facility], Dr Hardy LIG/TRNSXJ FLP TUBE ABDL/VAG APPR UNI/BI ALLERGIES Adhesive Tape-Silicones, Antihistamine [Diphenhydramine], Latex, Lisinopril, Naproxen, Paxil [Paroxetine], and Serotonin MEDICATIONS rimegepant (NURTEC ODT) 75 mg disintegrating tablet Take 1 tablet by mouth once daily as needed. LORazepam (ATIVAN) 0.5 mg Take 0.5 mg by mouth twice daily as needed. iv contrast (will be provided with radiology test) CTA Head/Neck W No IV access, insert saline lock prior to the sedation, infusion, injection for imaging exam. Discontinue saline lock post exam. If Pt. has a central line or IVAD, may access for administration according to line specific nursing protocol. Once exam is complete flush line and de-access according to line specific nursing protocol in the CT contrast administration guidelines link. FAMILY HISTORY Problem Relation Age of Onset Asthma Mother Breast Cancer Mother developed age 61 other (leukemia) Mother 60 Hypertension Father Diabetes Father Coronary Artery Disease Father other (LIVER DISEASE) Father R/T ETOH ABUSE Genitourinary () Paternal Grandfather Diabetes Brother Social History Tobacco Use Smoking status: Former Packs/day: 2.00 Years: 15.00 Additional pack years: 0.00 Total pack years: 30.00 Types: Cigarettes Quit date: 12/08/2017 Years since quittin.0 Smokeless tobacco: Never Vaping Use Vaping Use: Former Start date: 12/08/2017 Quit date: 01/08/2018 Substance Use Topics Alcohol use: Not Currently Drug use: Not Currently Comment: quit pot 2016. Medical Marijuana 2020. PHYSICAL EXAM BP 126/82 Pulse 95 Resp 18 Wt 98.4 kg (217 lb) LMP 12/29/2021 (Exact Date) SpO2 97% BMI 32.05 kg/m? General Appearance: well appearing, in no acute distress, alert Neck: Thyroid normal size and symmetric without palpable nodules, Neck supple, No adenopathy Lymph nodes: No supraclavicular lymphadenopathy DATA REVIEWED: Most recent labs and imaging results. ASSESSMENT/PLAN: 1. Thyroid nodule - ICD9: 241.0, ICD10: E04.1 No alarm symptoms or exam findings. Evaluate further with: - TSH BLD - T4 FREE/FREE THYROX - T3 BLD - MAGNESIUM BLD - US THYROID/PARATHYROID Follow-up and recommendations pending results Prescription instructions reviewed with patient as applicable. Potential red flag symptoms discussed with the patient. Reviewed appropriate action plan to take if red flag symptoms occur. Patient agreeable to treatment plan. Gill Linares APRN.PAYROLL MACHINE OPERATOR [facility] 01-06-2023 Note HNO ID: [id number] Author: Shirlene Heart RT(R) Service: ? Author Type: Senior Research Scientist Type: Progress Notes Filed: 01/06/2023 3:02 PM Note Text: Radiology Service Progress Note DATE OF SERVICE: January 06, 2023 TIME: 3:02 PM PATIENT IDENTITY VERIFICATION COMPLETED USING TWO (2) STANDARD IDENTIFIERS: Name and Date of confirmed by patient verbally. FALL SCREENING: Has the patient had 2 falls in the last year or 1 fall with injury or currently using an Ambulatory Assistive Device (Walker, Cane, Wheelchair, Crutches, etc.)? No PATIENT GENDER DATA: Female. status: : No status: NO. PATIENT RELEVANT IMPLANT DATA REVIEWED: Yes ALLERGIES: Reviewed and unchanged CONTRAST ALLERGY: NO. EXAM: CT -CONTRAST INDUCED NEPHROPATHY RISK FACTORS: Not applicable CREATININE: Creatinine Date Value Ref Range Status 12/29/2022 0.92 0.73 - 1.22 mg/dL Final 09/02/2022 0.90 0.58 - 0.96 mg/dL Final 08/21/2020 0.79 0.58 - 0.96 mg/dL Final Estimated Glomerular Filtration Rate Date Value Ref Range Status 12/29/2022 77 >=60 mL/min/1.73m? Final Comment: Estimated Glomerular Filtration Rate (eGFR) is calculated using the 2020 CKD-EPI creatinine equation. This equation utilizes serum creatinine, sex, and age as parameters. The creatinine assay has traceable calibration to isotope dilution-mass spectrometry. Refer to KDIGO guidelines for clinical interpretation. In patients with unstable renal function, e.g. those with acute kidney injury, the eGFR may not accurately reflect actual GFR. eGFR- Date Value Ref Range Status 08/21/2020 >60 Final P.O.C.T. RESULTS: POC done: Yes, See Lab Tab January 06, 2023 TREATMENT: N/A PERIPHERAL IV DATA: Ambulatory: A peripheral IV was started in the Left antecubital site with a Angio cath: 20 gauge. RADIOLOGY DEPARTMENT: CT; Exam(s) Completed: CTA Brain and CTA Neck SIGNATURE: RT Andrea(R) PATIENT NAME: Michell Wooten DATE: January 06, 2023 TIME: 3:02 PM [facility] 12-29-2022 Note HNO ID: [id number] Author: Gill Linares APRN.PAYROLL MACHINE OPERATOR Service: ? Author Type: Nurse Practitioner Type: Progress Notes Filed: 12/29/2022 12:18 PM Note Text: CC: Patient presents with: UTI: X 1 week HPI Michell Wooten is a 47 year old adult who presents with complaint of possible UTI. These symptoms have been present for 7 days. Associated symptoms: urgency, frequency, backpain, and dark urine Denies: burning, hematuria, fever, chills, and abdominal pain Treatments: increasing Michell Wooten's fluids The ROS was otherwise negative. PMH, Medications, labs, allergies, and recent past visits with PCP were reviewed and updated as able. PHYSICAL EXAM: BP 116/74 Pulse 68 Resp 18 Wt 98.4 kg (217 lb) LMP 12/29/2021 (Exact Date) SpO2 99% BMI 32.05 kg/m? General: Well appearing and alert CV: Regular rate and rhythm without obvious murmur Lungs: clear to auscultation bilaterally Back: no CVA tenderness Abdomen: soft, nontender, nondistended ASSESSMENT/PLAN: 1. Urinary tract infection without hematuria, site unspecified - ICD9: 599.0, ICD10: N39.0 (primary diagnosis) - UA DIP, URINE (POC) positive for small amount of blood - send URINE CULTURE - start treatment with Macrobid, see orders - follow-up in 2-3 days if no improvement or sooner if worsening 2. Medication monitoring encounter - ICD9: V58.83, ICD10: Z51.81 CT scan ordered today by neurologist, patient states she was told she needs to have creatinine checked. - CREATININE BLD 3. Encounter for screening for diabetes mellitus - ICD9: V77.1, ICD10: Z13.1 - HGB A1C Prescription instructions reviewed with patient as applicable. Potential red flag symptoms discussed with the patient. Reviewed appropriate action plan to take if red flag symptoms occur. Patient agreeable to treatment plan. Gill Linares APRN.CNP [facility] 12-22-2022 Note HNO ID: [id number] Author: Sarah Cox PA-C Service: ? Author Type: Physician Group Billing Coordinator Type: Progress Notes Filed: 12/22/2022 2:21 PM Note Text: Neurology Outpatient Clinic Date: December 22, 2022 Patient Name: Michell Wooten Referring provider: Gill Linares CNP [id number] [facility] [address] Consult requested for headache and dizziness by Gill Linares CNP. Recommendations will be communicated via shared medical record or US mail. Primary physician: Mihir Lock [address] [place] [address] Reason for Evaluation: Dizziness and Headaches Subjective HPI Michell Wooten is a 47 year old right-handed adult who presents for evaluation of headaches, dizziness. Gill Linares CNP is the referring provider. Mihir Lopes MD is the PCP. Chart review: 12/11/22 saw PCP noted dizziness. She was seen 10/30 for migraines and ER follow-up for new symptom of vertigo, never used prescribed imitrex. Main concern is ongoing dizziness. Denies feeling faint, syncope, confusion, disorientation, numbness/tingling, weakness, tremor, difficulty with coordination/balance, slurred speech, facial drooping. CT brain 10/24/22 was normal. Patient presents for evaluation of headaches and dizziness. Regarding headaches, patient notes history of migraines. She was a child, began after puberty. Notes that she typically gets 2-3 migraines a month with an aura. Notes that her aura tends to be vision loss in a half-sigala shape on 1 field of her vision bilaterally and then she will later get a headache on the opposite side of the head. Has associated photophobia, phonophobia, osmophobia, numbness, tingling, cramping, nausea and vomiting. Notes that the numbness will change distribution, will localize to the limb or side of the face. Also get corresponding weakness and states that she will have facial drooping or inability to use the limb affected. Notes that the worst of her symptoms last for about 4 hours or so, but then will have a headache into the next day. Has taken [id number] medications along with 1 Ativan with mild benefit, was prescribed triptans but was cautious to take these due to her cardiac history. Patient also endorses sexual headache with orgasm that occurs every time she has an orgasm. Ongoing chronically. This is a sudden and severe headache. Also endorses an exertional headache but this is her typical migraine. We will also get onset of headache with Valsalva, bowel movement, but states that she has chronic constipation. Regarding dizziness, this is been ongoing for a few years, has followed with ENT with no diagnosis for her dizziness. Notes that when it began she was also going through heart failure and believes it was just secondary to her blood pressure from her heart failure. However, when her ICD was placed her blood pressure normalized and she continued to have dizziness. She describes a room spinning dizziness with significant nausea, vomiting and impending doom. This would last for minutes, typically occurs with rolling over in bed, turning around, worse on the right side than the left. Does not occur with head movements to the right or left. This occurred outside of a headache and she does not believe it is related. Patient does note history of seizures as a child. States that she was born with complete heart block and did not have a pacemaker put until she was 16. She sees cardiology regularly, recently had ICD placed. States that her seizures were secondary to lack of blood flow to the brain. Has not had any seizure-like activity since. Does note that her brother has seizures in the past but was told it was due to blood sugar abnormality, but states that he is much older and she does not know much about his history. Current Headache treatment Preventative: None Abortive: Ativan and Tylenol Medications effective? sometimes # of doses of abortive medications per month: 2-3 Previous Imaging: CT brain 10/24/22 Previous Medications: Headache Description Onset: As a child Total headache days per month: 2-3 Total headache attacks per month: 2-3 Headache free days: Yes Duration of attacks: Severe for 4-6 hours but then will have headache next day Severity of headaches? Moderate to severe Onset to Peak: gradual Location: sides, either side in eye. Aura: half sigala loss of vision Prodrome:none. Accompanying symptoms: photophobia, phonophobia, osmophobia, nausea, vomiting, vertigo, weakness localized, numbness variable but localized, blurred vision, nasal congestion, lacrimation, language disturbance, confusion, agitation, neck pain, worse with movement. Quality:pounding dull ache. Worse with activity: Yes Triggers: bright lights, loud noise, odors, stress, menses, weather changes, foods (shrimp), exertion/exercise, sex, caffeine, fasting/hunger, heat, too muc (more content not included)... [facility] 12-11-2022 Note HNO ID: [id number] Author: Gill Linares APRN.PAYROLL MACHINE OPERATOR Service: ? Author Type: Nurse Practitioner Type: Progress Notes Filed: 12/14/2022 2:05 PM Note Text: CC: Patient presents with: 6 week follow up HPI Michell Wooten is a 47 year old adult who presents today for above. She was seen 10/30 for migraines and ER follow-up for new symptom of vertigo, see office note in Epic. She was prescribed Imitrex for as needed use but never picked up the prescription because she was worried about medication side effects. She was also advised to keep a headache diary but has only had a couple migraines since then and did not think this was necessary. Her main concern today is the ongoing vertigo. It was suggested in the ER she see neurology and she is hoping to get a referral today. There are no new or worsening symptoms since ER visit. Denies feeling faint, syncope, confusion, disorientation, numbness/tingling, weakness, tremor, difficulty with coordination/balance, slurred speech, facial drooping REVIEW OF SYSTEMS See HPI PAST MEDICAL HISTORY Diagnosis Date Abnormal uterine bleeding (AUB) 12/30/2021 Adenomyosis 12/30/2021 Asthma Atrial tachycardia (HCC) 2009 Atrioventricular block, complete (HCC) 07/31/2005 3rd degree AVB Bipolar affective (HCC) Dr. 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 Last Assessment AND Plan: Underwent successful RA lead extraction and replacement yesterday, 09/01 CXR demonstrates no pneumothroax Device interrogation pending Headache(784.0) MIGRAINES WITH AURA Panic disorder without agoraphobia 11/19/2011 Follows at [facility] Bipolar disorder possible, to be r/o (09/25/11) Primary cardiomyopathy (HCC) non ischemic PTSD (post-traumatic stress disorder) 11/19/2011 Follows at [facility] Rectal bleeding 09/04/2022 Schizoaffective disorder Unspecified schizophrenia Schizophrenia PAST SURGICAL HISTORY Procedure Laterality Date ANES PERMANENT TRANSVENOUS PACEMAKER INSERTION 01/09/1992 Permanent Pacemaker DELIVERY ONLY TIMES THREE DANDC, DIAG AND/OR THERAPEUTIC 02/05/2022 HYSTEROSCOPY ENDOMETRIAL ABLATION 02/05/2022 Marcella ablation ICD GENERATOR CHANGE 07/19/2020 [facility] IMPLANTABLE CARDIOVERTER DEFIBRILLATOR 05/10/2009 defib/pacer- [facility], Dr Hardy LIG/TRNSXJ FLP TUBE ABDL/VAG APPR UNI/BI ALLERGIES Adhesive Tape-Silicones, Antihistamine [Diphenhydramine], Latex, Lisinopril, Naproxen, and Paxil [Paroxetine] MEDICATIONS SUMAtriptan (IMITREX) 100 mg tablet Take 1 tablet by mouth as needed when migraine starts. May repeat in 2 hours if headache continues or returns. Do not exceed 2 tablets in 24 hours. LORazepam (ATIVAN) 0.5 mg Take 0.5 mg by mouth twice daily as needed. FAMILY HISTORY Problem Relation Age of Onset Asthma Mother Breast Cancer Mother developed age 61 other (leukemia) Mother 60 Hypertension Father Diabetes Father Coronary Artery Disease Father other (LIVER DISEASE) Father R/T ETOH ABUSE Genitourinary () Paternal Grandfather Diabetes Brother Social History Tobacco Use Smoking status: Former Packs/day: 2.00 Years: 15.00 Total pack years: 30.00 Types: Cigarettes Quit date: 12/08/2017 Years since quittin.0 Smokeless tobacco: Never Vaping Use Vaping Use: Former Start date: 12/08/2017 Quit date: 01/08/2018 Substance Use Topics Alcohol use: Not Currently Drug use: Not Currently Comment: quit pot 2016. Medical Marijuana 2020. PHYSICAL EXAM LMP 12/29/2021 (Exact Date) General Appearance: well appearing, in no acute distress, alert Pysch: affect is anxious Health maintenance reviewed with patient: COVID-19 VACCINE(1) Never done SPIROMETRY Never done HEPATITIS A(1 of 2 - Risk 2-dose series) Never done HEPATITIS B(2 of 3 - 19+ 3-dose series) due on 02/18/2006 PNEUMOCOCCAL(2 - PCV) due on 06/12/2006 COLORECTAL CANCER SCREENING due on 04/01/2022 MAMMOGRAM due on 04/02/2022 DEPRESSION ASSESSMENT Never done INFLUENZA(1) due on 01/08/2023 ANNUAL PCP TEAM CHRONIC DISEASE VISIT due on 10/31/2023 DIABETES SCREEN due on 09/02/2025 PAP TESTING due on 09/16/2025 HPV TESTING due on 09/16/2025 LIPID SCREEN due on 04/02/2026 DTAP,TDAP,TD(2 - Td or Tdap) due on 10/28/2027 HEPATITIS C SCREENING Completed HIV SCREENING Completed ASSESSMENT/PLAN: 1. Vertigo - ICD9: 780.4, ICD10: R42 (primary diagnosis) New onset. Symptoms have not worsened. Would like to see neurology, consult placed. - CONSULT TO NEUROLOGY 2. Headaches - ICD9: 784.0, ICD10: R51.9 Discuss treatment options with neurology - CONSULT TO NEUROLOGY Prescription instructions reviewed with patient as applicable. Potential red flag symptoms discussed with the patient. Reviewed appropriate action plan to take if red flag sym (more content not included)... [facility] 10-30-2022 Note HNO ID: [id number] Author: Mihir Lock MD Service: ? Author Type: Physician Type: Progress Notes Filed: 10/30/2022 12:53 PM Note Text: This note was created using Quantifeedriter. Subjective Michell Wooten is a 47 year old year old female who presents with complaint of chronic migraine headache(s) since puberty. Pain is located on either side of the temporal region, parietal region, and behind eye and described as excruciating, pressure, and throbbing. Individual headaches begin acutely with expanding visual aura on the opposite side are associated with symptoms of nausea, vomiting, photophobia, phonophobia, and numbness and tingling of the arm on the side of the headache. Triggers include menstrual cycles, alcohol intake, stress, and foods such as eggs, milk, shrimp. Headaches may last for 3-4 hours and have been occuring 2-3 times a month. Symptoms have been treated with resting in quiet dark room and minor analgesics- Tylenol and lorazepam, with better tolerance but not less duration. The patient denies weakness, slurred speech, dizziness, and fever. She denies history of head injury or trauma, significant caffeine intake, excessive alcohol intake, and recently beginning oral contraceptives. This is an ER follow up. She had some unusual symptoms of ear pain and dizziness with her migraine so she went to [facility] where labs and CT brain on 10/24/22 were unremarkable. She was diagnosed with vertigo. She was better. She was told to get a referral to neurology for migraines. Review of Systems Constitutional: Negative for fever. HENT: Negative for ear pain and hearing loss. Eyes: Negative for visual disturbance. Respiratory: Negative for shortness of breath. Cardiovascular: Negative for chest pain, palpitations and leg swelling. Psychiatric/Behavioral: Negative. ACTIVE PROBLEM LIST Asthma Primary Cardiomyopathy (Hcc) Dysmetabolic Syndrome X Congenital Third Degree Heart Block Constipation, Chronic Icd (Implantable Cardioverter-Defibrillator) in Place Bipolar Affective Disorder (Hcc) Obesity, Class I, Bmi 30-34.9 Plmd (Periodic Limb Movement Disorder) Iron Deficiency Anemia Due to Chronic Blood Loss Adenomyosis Abnormal Uterine Bleeding (Aub) Current Outpatient Medications Medication Sig LORazepam (ATIVAN) 0.5 mg Take 0.5 mg by mouth twice daily as needed. No current facility-administered medications for this visit. Social History Tobacco Use Smoking status: Former Packs/day: 2.00 Years: 15.00 Pack years: 30.00 Types: Cigarettes Quit date: 12/08/2017 Years since quittin.8 Smokeless tobacco: Never Vaping Use Vaping Use: Former Start date: 12/08/2017 Quit date: 01/08/2018 Substance Use Topics Alcohol use: Yes Comment: rare Drug use: Not Currently Comment: quit pot 2016. Medical Marijuana 2020. Objective BP 124/78 Pulse 70 Resp 14 Wt 99.3 kg (219 lb) LMP 12/29/2021 (Exact Date) SpO2 98% BMI 32.34 kg/m? Physical Exam Constitutional: Appearance: Normal appearance. HENT: Head: Atraumatic. Right Ear: Tympanic membrane normal. Left Ear: Tympanic membrane normal. Nose: Nose normal. Eyes: Extraocular Movements: Extraocular movements intact. Pupils: Pupils are equal, round, and reactive to light. Cardiovascular: Rate and Rhythm: Normal rate and regular rhythm. Heart sounds: No murmur heard. No gallop. Pulmonary: Breath sounds: Normal breath sounds. Musculoskeletal: Right lower leg: No edema. Left lower leg: No edema. Neurological: Mental Status: She is alert and oriented to person, place, and time. Cranial Nerves: Cranial nerves 2-12 are intact. Sensory: Sensation is intact. Motor: Motor function is intact. No weakness. Coordination: Coordination is intact. Csdmce-Wgjv-Ewkfcj Test normal. Rapid alternating movements normal. Gait: Gait is intact. Assessment and Plan 1. Migraine with aura and without status migrainosus, not intractable - ICD9: 346.00, ICD10: G43.109 - She had no prior treatment, and had been self managing all this time. She thought migraine treatments had caffeine which she avoided. - Shared medical decision making was done. We agreed to try usual migraine treatments. No neurology referral will be made at this time. We agreed to try abortive treatment to decrease duration and severity of headaches. - SUMATRIPTAN 100 MG TABLET Discussed medication dosage, usage, goals of therapy, and side effects. Mihir Lock MD [facility] 10-30-2022 Instructions Mihir Lock MD - 10/30/2022 12:12 PM EDT Keep a headache diary. documented in this encounter [facility] 10-30-2022 History of Presen t illness Narrative This note was created using [employer]. Subjective Michell Wooten is a 47 year old year old female who presents with complaint of chronic migraine headache(s) since puberty. Pain is located on either side of the temporal region, parietal region, and behind eye and described as excruciating, pressure, and throbbing. Individual headaches begin acutely with expanding visual aura on the opposite side are associated with symptoms of nausea, vomiting, photophobia, phonophobia, and numbness and tingling of the arm on the side of the headache. Triggers include menstrual cycles, alcohol intake, stress, and foods such as eggs, milk, shrimp. Headaches may last for 3-4 hours and have been occuring 2-3 times a month. Symptoms have been treated with resting in quiet dark room and minor analgesics- Tylenol and lorazepam, with better tolerance but not less duration. The patient denies weakness, slurred speech, dizziness, and fever. She denies history of head injury or trauma, significant caffeine intake, excessive alcohol intake, and recently beginning oral contraceptives. This is an ER follow up. She had some unusual symptoms of ear pain and dizziness with her migraine so she went to [facility] where labs and CT brain on 10/24/22 were unremarkable. She was diagnosed with vertigo. She was better. She was told to get a referral to neurology for migraines. Review of Systems Constitutional: Negative for fever. HENT: Negative for ear pain and hearing loss. Eyes: Negative for visual disturbance. Respiratory: Negative for shortness of breath. Cardiovascular: Negative for chest pain, palpitations and leg swelling. Psychiatric/Behavioral: Negative. ACTIVE PROBLEM LIST Asthma Primary Cardiomyopathy (Hcc) Dysmetabolic Syndrome X Congenital Third Degree Heart Block Constipation, Chronic Icd (Implantable Cardioverter-Defibrillator) in Place Bipolar Affective Disorder (Hcc) Obesity, Class I, Bmi 30-34.9 Plmd (Periodic Limb Movement Disorder) Iron Deficiency Anemia Due to Chronic Blood Loss Adenomyosis Abnormal Uterine Bleeding (Aub) Current Outpatient Medications Medication Sig LORazepam (ATIVAN) 0.5 mg Take 0.5 mg by mouth twice daily as needed. No current facility-administered medications for this visit. Social History Tobacco Use Smoking status: Former Packs/day: 2.00 Years: 15.00 Pack years: 30.00 Types: Cigarettes Quit date: 12/08/2017 Years since quittin.8 Smokeless tobacco: Never Vaping Use Vaping Use: Former Start date: 12/08/2017 Quit date: 01/08/2018 Substance Use Topics Alcohol use: Yes Comment: rare Drug use: Not Currently Comment: quit pot 2016. Medical Marijuana 2020. Objective BP 124/78 Pulse 70 Resp 14 Wt 99.3 kg (219 lb) LMP 12/29/2021 (Exact Date) SpO2 98% BMI 32.34 kg/m Physical Exam Constitutional: Appearance: Normal appearance. HENT: Head: Atraumatic. Right Ear: Tympanic membrane normal. Left Ear: Tympanic membrane normal. Nose: Nose normal. Eyes: Extraocular Movements: Extraocular movements intact. Pupils: Pupils are equal, round, and reactive to light. Cardiovascular: Rate and Rhythm: Normal rate and regular rhythm. Heart sounds: No murmur heard. No gallop. Pulmonary: Breath sounds: Normal breath sounds. Musculoskeletal: Right lower leg: No edema. Left lower leg: No edema. Neurological: Mental Status: She is alert and oriented to person, place, and time. Cranial Nerves: Cranial nerves 2-12 are intact. Sensory: Sensation is intact. Motor: Motor function is intact. No weakness. Coordination: Coordination is intact. Zpspnw-Jlhk-Iqqfvx Test normal. Rapid alternating movements normal. Gait: Gait is intact. Assessment and Plan 1. Migraine with aura and without status migrainosus, not intractable - ICD9: 346.00, ICD10: G43.109 - She had no prior treatment, and had been self managing all this time. She thought migraine treatments had caffeine which she avoided. - Shared medical decision making was done. We agreed to try usual migraine treatments. No neurology referral will be made at this time. We agreed to try abortive treatment to decrease duration and severity of headaches. - SUMATRIPTAN 100 MG TABLET Discussed medication dosage, usage, goals of therapy, and side effects. Mihir Lock MD documented in this encounter [facility] 09-04-2022 Note HNO ID: [id number] Author: David Rosenberg MD Service: ? Author Type: Physician Type: Progress Notes Filed: 09/04/2022 5:15 PM Note Text: HISTORY AND PHYSICAL Michell Wooten 1975 REFERRING PHYSICIAN: Gill Linares APRN.CNP CHIEF COMPLAINT: Consult (Rectal bleeding and constipation. ) HPI: The patient is a 46 year old female referred for endoscopy. Michell notes the following GI complaints: Samta notes abdominal pain. The pain occurs in the following locations: It occurs diffusely and is often more of a bloating sensation than true pain. Samta denies diarrhea. Samta notes constipation. Samta denies a change in bowel habits. Samta denies melena. Samta notes bright red blood per rectum. Samta denies hemorrhoids. The patient notes the following upper complaints: Michell denies abdominal pain.. Samta notes heartburn. Samta denies dysphagia. Vietta denies a history of ulcers/ peptic ulcer disease. Michell has not undergone prior endoscopy. After further discussion, the patient notes she had a longstanding history of constipation including issues with constipation as a child. More recently she states she has to press on her perineal area in order to evacuate her stool and when she presses on the perineal area it feels like she is straightening her colon that then allows her to defecate. She does not note true vaginal prolapse. The patient is being seen by me today at the request of Gill Linares APRN.CNP my opinion and advice regarding constipation, rectal bleeding, reflux and epigastric symptoms. PAST MEDICAL HISTORY Diagnosis Date Asthma Atrial tachycardia ([facility]) 2009 Atrioventricular block, complete ([facility]) 07/31/2005 3rd degree AVB Bipolar affective ([facility]) Dr. 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 Last Assessment AND Plan: Underwent successful RA lead extraction and replacement yesterday, 09/01 CXR demonstrates no pneumothroax Device interrogation pending Headache(784.0) MIGRAINES WITH AURA Panic disorder without agoraphobia 11/19/2011 Follows at [facility] Bipolar disorder possible, to be r/o (09/25/11) Primary cardiomyopathy (HCC) non ischemic PTSD (post-traumatic stress disorder) 11/19/2011 Follows at [facility] Rectal bleeding 09/04/2022 Schizoaffective disorder Unspecified schizophrenia Schizophrenia PAST SURGICAL HISTORY Procedure Laterality Date ANES PERMANENT TRANSVENOUS PACEMAKER INSERTION 01/09/1992 Permanent Pacemaker DELIVERY ONLY TIMES THREE DANDC, DIAG AND/OR THERAPEUTIC 02/05/2022 HYSTEROSCOPY ENDOMETRIAL ABLATION 02/05/2022 Marcella ablation ICD GENERATOR CHANGE 07/19/2020 [facility] IMPLANTABLE CARDIOVERTER DEFIBRILLATOR 05/10/2009 defib/pacer- [facility], Dr Hardy LIG/TRNSXJ FLP TUBE ABDL/VAG APPR UNI/BI Current Outpatient Medications Medication Sig LORazepam (ATIVAN) 0.5 mg Take 0.5 mg by mouth twice daily as needed. peg 3350-Electrolytes (GOLYTELY) 236-22.74-6.74 -5.86 gram suspension Take 4,000 mL by mouth one time only for 1 dose. Refer to printed prep instructions from your provider. No current facility-administered medications for this visit. ALLERGIES: Adhesive Tape-Silicones, Antihistamine [Diphenhydramine], Latex, Lisinopril, Naproxen, and Paxil [Paroxetine] PERSONAL HISTORY: Social History Tobacco Use Smoking status: Former Packs/day: 2.00 Years: 15.00 Pack years: 30.00 Types: Cigarettes Quit date: 12/08/2017 Years since quittin.7 Smokeless tobacco: Never Vaping Use Vaping Use: Former Start date: 12/08/2017 Quit date: 01/08/2018 Substance Use Topics Alcohol use: Yes Comment: rare Drug use: Not Currently Comment: quit pot 2016. Medical Marijuana 2020. FAMILY HISTORY: FAMILY HISTORY Problem Relation Age of Onset Asthma Mother Breast Cancer Mother developed age 61 other (leukemia) Mother 60 Hypertension Father Diabetes Father Coronary Artery Disease Father other (LIVER DISEASE) Father R/T ETOH ABUSE Genitourinary () Paternal Grandfather Diabetes Brother REVIEW OF SYMPTOMS: The review of systems data was entered by the nurse and reviewed by me There are no exam notes on file for this visit. PHYSICAL EXAMINATION: General: The patient is 46 year old female, well nourished, well hydrated in no acute distress. The patient is oriented to time, place, and person. VITALS: Blood pressure 108/66, pulse 86, temperature 36.8 ?C (98.2 ?F), height 175.3 cm (5' 9 ), weight 99.5 kg (219 lb 6.4 oz), last menstrual period 12/29/2021, SpO2 98 %. Body mass index is 32.4 kg/m?. HEENT: Normal cephalic, ataumatic, pupils are equally round, sclera are anicteric, mucous membranes are moist, oropharynx is clear. Neck has no masses, asymmetry or lymphadenopathy. Thyroid is unrem (more content not included)... [facility] 09-02-2022 Note HNO ID: [id number] Author: Gill Linares APRN.PAYROLL MACHINE OPERATOR Service: ? Author Type: Nurse Practitioner Type: Progress Notes Filed: 09/02/2022 12:42 PM Note Text: CC: Patient presents with: blood in stool - 6-7 months: Constipation HPI Michell Wooten is a 46 year old female who presents today for above. Patient reports blood in her stool for the past 7 months, increasing in frequency. Sometimes it is bright red and other times it is darker in color. She has chronic constipation and strains with BM's. Stools are small and hard. Associated with rectal pain, bloating, gassiness. Denies black/tarry stools, abdominal pain, nausea, vomiting, diarrhea. She does not take anything for constipation. . REVIEW OF SYSTEMS GENERAL: Negative for significant weight loss, fever, chills, night sweats, Positive for malaise PAST MEDICAL HISTORY Diagnosis Date Asthma Atrial tachycardia (HCC) 2009 Atrioventricular block, complete (HCC) 07/31/2005 3rd degree AVB Bipolar affective (HCC) Dr. 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 Last Assessment AND Plan: Underwent successful RA lead extraction and replacement yesterday, 09/01 CXR demonstrates no pneumothroax Device interrogation pending Headache(784.0) MIGRAINES WITH AURA Panic disorder without agoraphobia 11/19/2011 Follows at [facility] Bipolar disorder possible, to be r/o (09/25/11) Primary cardiomyopathy (HCC) non ischemic PTSD (post-traumatic stress disorder) 11/19/2011 Follows at [facility] Schizoaffective disorder Unspecified schizophrenia Schizophrenia PAST SURGICAL HISTORY Procedure Laterality Date ANES PERMANENT TRANSVENOUS PACEMAKER INSERTION 01/09/1992 Permanent Pacemaker DELIVERY ONLY TIMES THREE DANDC, DIAG AND/OR THERAPEUTIC 02/05/2022 HYSTEROSCOPY ENDOMETRIAL ABLATION 02/05/2022 Marcella ablation ICD GENERATOR CHANGE 07/19/2020 [facility] IMPLANTABLE CARDIOVERTER DEFIBRILLATOR 05/10/2009 defib/pacer- [facility], Dr Hardy LIG/TRNSXJ FLP TUBE ABDL/VAG APPR UNI/BI ALLERGIES Adhesive Tape-Silicones, Antihistamine [Diphenhydramine], Latex, Lisinopril, Naproxen, and Paxil [Paroxetine] MEDICATIONS LORazepam (ATIVAN) 0.5 mg Take 0.5 mg by mouth twice daily as needed. FAMILY HISTORY Problem Relation Age of Onset Asthma Mother Breast Cancer Mother developed age 61 other (leukemia) Mother 60 Hypertension Father Diabetes Father Coronary Artery Disease Father other (LIVER DISEASE) Father R/T ETOH ABUSE Genitourinary () Paternal Grandfather Diabetes Brother Social History Tobacco Use Smoking status: Former Packs/day: 2.00 Years: 15.00 Pack years: 30.00 Types: Cigarettes Quit date: 12/08/2017 Years since quittin.7 Smokeless tobacco: Never Vaping Use Vaping Use: Former Start date: 12/08/2017 Quit date: 01/08/2018 Substance Use Topics Alcohol use: Yes Comment: rare Drug use: Not Currently Comment: quit pot 2016. Medical Marijuana 2020. PHYSICAL EXAM BP 134/86 Pulse 68 Resp 18 Wt 98.9 kg (218 lb) LMP 12/29/2021 (Exact Date) BMI 32.19 kg/m? General Appearance: well appearing, in no acute distress, alert Lungs: Lungs clear to auscultation. No wheezing, rhonchi, rales. Heart: RRR without murmur, gallop, or rubs. No ectopy Abdomen: Abdomen soft, non-tender. Bowel sounds normal. No masses, organomegaly DATA REVIEWED: Most recent labs ASSESSMENT/PLAN: 1. Blood in stool - ICD9: 578.1, ICD10: K92.1 (primary diagnosis) Needs colonoscopy - CONSULT TO GENERAL SURGERY 2. Constipation, unspecified constipation type - ICD9: 564.00, ICD10: K59.00 Discussed treatment measures, see patient instructions Check labs - CBC + DIFF - IRON + TIBC - FERRITIN BLD - COMP METABOLIC PANEL - TSH BLD 3. Anemia, unspecified type - ICD9: 285.9, ICD10: D64.9 History of anemia, needs rechecked - CBC + DIFF - IRON + TIBC - FERRITIN BLD Prescription instructions reviewed with patient as applicable. Potential red flag symptoms discussed with the patient. Reviewed appropriate action plan to take if red flag symptoms occur. Patient agreeable to treatment plan. Gill Linares APRN.CNP [facility] 09-02-2022 Instructions Gill Linares APRN.CNP - 09/02/2022 12:13 PM EDT HOME INSTRUCTIONS FOR MANAGEMENT OF CONSTIPATION NON-MEDICATION MEASURES: 1. Increase your intake of fluids daily. Try to include 8 - 8 ounce glasses per day. Sip on fluids throughout the day. 2. Add more fiber to your diet. The recommended daily amount of fiber is 20 to 35 grams. If you are increasing your fiber intake do so slowly to avoid bloating and discomfort. The best source of fiber comes from foods. Examples of high fiber foods include whole grain breads and cereals, fruits (berries, prunes, oranges, etc) and vegetables (lettuce, broccoli, potato with skins, etc.). There are also fiber supplements available over the counter such as Metamucil or Benefiber 3. Increase your daily activity (walking, moving from bed to chair, or exercise in bed) 4. Set aside a time preferably around the same time each day (example: right after breakfast) to move bowels. MEDICATION MEASURES: 1. Start Miralax.This is a daily medication, can adjust how much you need over time depending on your stools. For example, decrease dose to half or every other day or so if stools become too loose. 2. Other treatments include using Milk of Magnesia 3 tablespoons at bedtime along with 8 ounces of water if above measures tried and no results. documented in this encounter [facility] 09-02-2022 History of Presen t illness Narrative CC: Patient presents with: blood in stool - 6-7 months: Constipation HPI Michell Wooten is a 46 year old female who presents today for above. Patient reports blood in her stool for the past 7 months, increasing in frequency. Sometimes it is bright red and other times it is darker in color. She has chronic constipation and strains with BM's. Stools are small and hard. Associated with rectal pain, bloating, gassiness. Denies black/tarry stools, abdominal pain, nausea, vomiting, diarrhea. She does not take anything for constipation. . REVIEW OF SYSTEMS GENERAL: Negative for significant weight loss, fever, chills, night sweats, Positive for malaise PAST MEDICAL HISTORY Diagnosis Date Asthma Atrial tachycardia (HCC) 2009 Atrioventricular block, complete (HCC) 07/31/2005 3rd degree AVB Bipolar affective (HCC) Dr. 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 Last Assessment & Plan: Underwent successful RA lead extraction and replacement yesterday, 09/01 CXR demonstrates no pneumothroax Device interrogation pending Headache(784.0) MIGRAINES WITH AURA Panic disorder without agoraphobia 11/19/2011 Follows at [facility] Bipolar disorder possible, to be r/o (09/25/11) Primary cardiomyopathy (HCC) non ischemic PTSD (post-traumatic stress disorder) 11/19/2011 Follows at [facility] Schizoaffective disorder Unspecified schizophrenia Schizophrenia PAST SURGICAL HISTORY Procedure Laterality Date ANES PERMANENT TRANSVENOUS PACEMAKER INSERTION 01/09/1992 Permanent Pacemaker DELIVERY ONLY TIMES THREE D&C, DIAG AND/OR THERAPEUTIC 02/05/2022 HYSTEROSCOPY ENDOMETRIAL ABLATION 02/05/2022 Marcella ablation ICD GENERATOR CHANGE 07/19/2020 [facility] IMPLANTABLE CARDIOVERTER DEFIBRILLATOR 05/10/2009 defib/pacer- [facility], Dr Hardy LIG/TRNSXJ FLP TUBE ABDL/VAG APPR UNI/BI ALLERGIES Adhesive Tape-Silicones, Antihistamine [Diphenhydramine], Latex, Lisinopril, Naproxen, and Paxil [Paroxetine] MEDICATIONS LORazepam (ATIVAN) 0.5 mg Take 0.5 mg by mouth twice daily as needed. FAMILY HISTORY Problem Relation Age of Onset Asthma Mother Breast Cancer Mother developed age 61 other (leukemia) Mother 60 Hypertension Father Diabetes Father Coronary Artery Disease Father other (LIVER DISEASE) Father R/T ETOH ABUSE Genitourinary () Paternal Grandfather Diabetes Brother Social History Tobacco Use Smoking status: Former Packs/day: 2.00 Years: 15.00 Pack years: 30.00 Types: Cigarettes Quit date: 12/08/2017 Years since quittin.7 Smokeless tobacco: Never Vaping Use Vaping Use: Former Start date: 12/08/2017 Quit date: 01/08/2018 Substance Use Topics Alcohol use: Yes Comment: rare Drug use: Not Currently Comment: quit pot 2016. Medical Marijuana 2020. PHYSICAL EXAM BP 134/86 Pulse 68 Resp 18 Wt 98.9 kg (218 lb) LMP 12/29/2021 (Exact Date) BMI 32.19 kg/m General Appearance: well appearing, in no acute distress, alert Lungs: Lungs clear to auscultation. No wheezing, rhonchi, rales. Heart: RRR without murmur, gallop, or rubs. No ectopy Abdomen: Abdomen soft, non-tender. Bowel sounds normal. No masses, organomegaly DATA REVIEWED: Most recent labs ASSESSMENT/PLAN: 1. Blood in stool - ICD9: 578.1, ICD10: K92.1 (primary diagnosis) Needs colonoscopy - CONSULT TO GENERAL SURGERY 2. Constipation, unspecified constipation type - ICD9: 564.00, ICD10: K59.00 Discussed treatment measures, see patient instructions Check labs - CBC + DIFF - IRON + TIBC - FERRITIN BLD - COMP METABOLIC PANEL - TSH BLD 3. Anemia, unspecified type - ICD9: 285.9, ICD10: D64.9 History of anemia, needs rechecked - CBC + DIFF - IRON + TIBC - FERRITIN BLD Prescription instructions reviewed with patient as applicable. Potential red flag symptoms discussed with the patient. Reviewed appropriate action plan to take if red flag symptoms occur. Patient agreeable to treatment plan. Gill Linares APRN.CNP documented in this encounter [facility] 05-13-2022 Note Patient Outreach (IN [facility]) MICHELL WOOTEN ([id number]) 1975 F Date Time Provider Department 05/13/22 MIHIR LOCK During your visit today, we recorded the following information about you: Allergies As of Date: 05/13/2022 Noted Allergy Reaction ADHESIVE TAPE-SILICONES 08/24/2006 ANTIHISTAMINE (DIPHENHYDRAMINE) 12/04/2021 14 - Other: See Comments Comments: Causes Panic Attacks LATEX 08/24/2006 LISINOPRIL 10/10/2012 14 - Other: See Comments Comments: Neck pain NAPROXEN 01/27/2005 Comments: PALPITATIONS PAXIL (PAROXETINE) 01/27/2005 Comments: PALPITATIONS Date Reviewed: 01/30/2022 Reviewed by: Flor Castro MD - Fully Assessed Visit Diagnosis:Encounter for screening mammogram for breast cancer [Z12.31] Order(s):[facility] SCREENING [[id number]] Order #: [id number] FUTURE Prescriptions as of 05/18/2022 - LORazepam (ATIVAN) 0.5 mg Take 0.5 mg by mouth twice daily as needed. Facility-Administered Medications as of 05/18/2022 - NaCl (PF) 0.9% 10-20 mL injection Problem List As Of Date 05/13/2022 Noted Resolved Asthma [J45.909] Primary cardiomyopathy (HCC) [I42.9] Headache(784.0) [R51] 10/27/2017 Unspecified schizophrenia [295.9] 11/19/2011 WEIGHT GAIN, ABNORMAL [R63.5] 06/12/2005 11/26/2015 DYSMETABOLIC SYNDROME X [E88.81] 06/12/2005 BIPOLAR (DEPRESSION) AFFECTIVE, DEPRESSED( In f*06/12/2005 11/19/2011 Congenital third degree heart block [Q24.6] 07/31/2005 BREAST NIPPLE DISCHARGE [N64.59] 03/25/2006 11/26/2015 PTSD (post-traumatic stress disorder) [F43.10] 11/19/2011 10/27/2017 Panic disorder without agoraphobia [F41.0] 11/19/2011 10/27/2017 Constipation, chronic [K59.09] 02/19/2016 ICD (implantable cardioverter-defibrillator) in*05/10/2009 Bipolar affective disorder (HCC) [F31.9] 12/01/2018 Obesity, Class I, BMI 30-34.9 [E66.9] 08/21/2020 PLMD (periodic limb movement disorder) [G47.61] 08/23/2020 Failure of implantable cardioverter-defibrillat*201203/26/2021 Iron deficiency anemia due to chronic blood los*11/20/2021 Adenomyosis [N80.03] 12/30/2021 Abnormal uterine bleeding (AUB) [N93.9] 12/30/2021 Encounter Status:Closed by EMMA ALMODOVARUSER on 05/18/22 [facility] 02-16-2022 Miscellaneous Notes Patient called and notified of benign pathology results from surgery on 02/[address] [facility] with Dr. Castro. Patient verbalizes understanding. Baylee Islas RN documented in this encounter [facility] 02-06-2022 Miscellaneous Notes Patient returned call and went over notes below from manager php with understanding. Patient is contacting CONTENT MANAGEMENT CONSULTANT office. Attempted to contact patient to recommend patient to contact CONTENT MANAGEMENT CONSULTANT. Left voicemail message to call office and ask for a triage nurse for message. Balbina Lamas RN Michell Wooten is calling Mihir Lock MD today with concern regarding Pain (Pain from ablation D & C done yesterday. Patient is asking for something for the pain the provider refused to give her anything . )she is having a hard time coping with the pain. 02/16. Please advise Patient has been identified by name and birthdate. Duration of symptoms: 2 days Person calling: self Call patient at: at home [phone] (home) [phone] (cell) Was an appointment scheduled: No Closing statement: Symptom Call: Thank you for calling [facility], your call is very important. A nurse will call in approximately 2-4 hours during business hours. If this is an emergency, please contact 911. Lashay Granda Pss documented in this encounter [facility] 02-06-2022 History of Presen t illness Narrative Patient underwent hysteroscopy D&C with endometrial ablation with Marcella device at [facility] on 02/05/2022 without complication. Pathology is pending. Flor Castro MD documented in this encounter [facility] 01-16-2022 Miscellaneous Notes Received signed medical clearance letter. Patient is cleared for surgery. Letter placed in [facility] mailbox. Natacha Salas RN Dr. Marcella Haskins's nurse, called back. Needs surgical clearance form faxed to their office at [phone]. Form faxed. Huong Redding RN Left message at Dr. Naranjo's (patient's information officer) office to call back line. [facility] wants to proceed with hysteroscopy, D&C, endometrial ablation and Liletta IUD insertion. Patient has IED and pacemaker. Wanted to see if okay with proceeding with surgery or if anything needs done with those prior to surgery. Huong Redding RN documented in this encounter [facility] documented as of this encounter (statuses as of 10/30/2022) [facility] History of Present illness Narrative* Flor Castro MD - 12/30/2021 10:53 AM EDT Michell Wooten is a 46 year old female who presents for problem visit for heavy menstrual bleeding resulting in anemia. Has had episodes of prolonged bleeding. Bleeds for greater than a week a month and some spotting. Clots. Bleeds through protection. Has always been heavy but getting worse. 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 Had pelvic US 10/28/21- reviewed, possible adenomyosis. Pap smear 2020 neg w/ neg hrhpv. Has had 3 c/s and a tubal w/ the third one in 1997. 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 Last Assessment & Plan: Underwent successful RA lead extraction and replacement yesterday, 09/01CXR demonstrates no pneumothroax Device interrogation pending Headache(784.0) MIGRAINES WITH AURA Panic disorder without agoraphobia 11/19/2011 Follows at [facility] Bipolar disorder possible, to be r/o (09/25/11) Primary cardiomyopathy (HCC) non ischemic PTSD (post-traumatic stress disorder) 11/19/2011 Follows at [facility] Schizoaffective disorder Unspecified schizophrenia Schizophrenia PAST SURGICAL HISTORY Procedure Laterality Date ANES PERMANENT TRANSVENOUS PACEMAKER INSERTION 01/09/1992 Permanent Pacemaker DELIVERY ONLY TIMES THREE ICD GENERATOR CHANGE 07/19/2020 [facility] IMPLANTABLE CARDIOVERTER DEFIBRILLATOR 05/10/2009 defib/pacer- [facility], Dr Hardy LIG/TRNSXJ FLP TUBE ABDL/VAG APPR UNI/BI FAMILY HISTORY Problem Relation Age of Onset Asthma Mother Breast Cancer Mother developed age 61 other (leukemia) Mother 60 Hypertension Father Diabetes Father Coronary Artery Disease Father other (LIVER DISEASE) Father R/T ETOH ABUSE Genitourinary () Paternal Grandfather Diabetes Brother Social History Tobacco Use Smoking status: Former Packs/day: 2.00 Years: 15.00 Pack years: 30.00 Types: Cigarettes Quit date: 12/08/2017 Years since quittin.0 Smokeless tobacco: Never Vaping Use Vaping Use: Former Start date: 12/08/2017 Quit date: 01/08/2018 Substance Use Topics Alcohol use: Yes Comment: rare Drug use: Not Currently Comment: quit pot 2016. Medical Marijuana 2020. Current Outpatient Medications Medication Sig ferrous sulfate 325 mg (65 mg iron) tablet Take 1 tablet by mouth three times daily with meals. LORazepam (ATIVAN) 0.5 mg Take 0.5 mg by mouth twice daily as needed. norethindrone (AYGESTIN) 5 mg tablet Take 1 tablet by mouth once daily. ondansetron orally disintegrating (ZOFRAN ODT) 4 mg disintegrating tablet Take 4 mg by mouth every 8 hours as needed for nausea/vomiting. Current Facility-Administered Medications Medication Dose Route Frequency NaCl (PF) 0.9% 10-20 mL injection 10-20 mL INTRAVENOUS PRN Allergies As of Date: 12/30/2021 Allergen Noted Reaction ADHESIVE TAPE-SILICONES 08/24/2006 ANTIHISTAMINE [DIPHENHYDRAMINE] 12/04/2021 Other: See Comments LATEX 08/24/2006 LISINOPRIL 10/10/2012 Other: See Comments NAPROXEN 01/27/2005 PAXIL [PAROXETINE] 01/27/2005 Fully Assessed 12/30/2021 Allergies and current medication updated:Yes EXAM: BP 110/76 Wt 211 lb (95.7kg) LMP 12/09/2021 GENERAL: pleasant, female in no apparent distress ASSESSMENT AND PLAN: 46 YOF w/ AUB. Needs EMB. Not a good combined hormonal contraceptive candidate with cardiac history. Patient does not want to be on estrogen containing products. Has adenomyosis. Discussed with the patient I would recommend Mirena IUD. Patient does not want IUD alone. Strongly desires definitive therapy in the form of an endometrial ablation. Discussed with patient that with adenomyosis increasedrisk of failure with an endometrial ablation. Recommend off label use of progestin IUD inserted at the time of ablation. Risk benefits and alternatives to this reviewed, will increase her chance of amenorrhea. Patient states understanding and after discussion would like to proceed. We will continueAygestin until surgery is scheduled to try and keep bleeding decreased. Medical Decision Making: Medical Decision Making Level: 1 - N/A Flor Castro MD documented in this encounterOhio [facility]08-22-2022 History of Present illness Narrative* Christine Joseph, MUSICAL INSTRUMENTS ASSEMBLER.PAYROLL MACHINE OPERATOR - 12/29/2021 2:52 PM EDT 46 year old who presents with complaints of irregular bleeding. LMP: Patient's last menstrual period was 12/29/2021. Started bleeding on 12/09, bleeding was not real heavy, she did start the Aygestin to stop the bleeding. She did stop bleeding for a few days but the bleeding has started back up. It is light bleeding. PAST MEDICAL HISTORY Diagnosis Date Asthma Atrial tachycardia (HCC) 2009 Atrioventricular block, complete (HCC) 07/31/2005 3rd degree AVB Bipolar affective (HCC) Dr. 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 Last Assessment & Plan: Underwent successful RA lead extraction and replacement yesterday, 09/01CXR demonstrates no pneumothroax Device interrogation pending Headache(784.0) MIGRAINES WITH AURA Panic disorder without agoraphobia 11/19/2011 Follows at [facility] Bipolar disorder possible, to be r/o (09/25/11) Primary cardiomyopathy (HCC) non ischemic PTSD (post-traumatic stress disorder) 11/19/2011 Follows at [facility] Schizoaffective disorder Unspecified schizophrenia Schizophrenia PAST SURGICAL HISTORY Procedure Laterality Date ANES PERMANENT TRANSVENOUS PACEMAKER INSERTION 01/09/1992 Permanent Pacemaker DELIVERY ONLY TIMES THREE ICD GENERATOR CHANGE 07/19/2020 [facility] IMPLANTABLE CARDIOVERTER DEFIBRILLATOR 05/10/2009 defib/pacer- [facility], Dr Hardy LIG/TRNSXJ FLP TUBE ABDL/VAG APPR UNI/BI FAMILY HISTORY Problem Relation Age of Onset Asthma Mother Breast Cancer Mother developed age 61 other (leukemia) Mother 60 Hypertension Father Diabetes Father Coronary Artery Disease Father other (LIVER DISEASE) Father R/T ETOH ABUSE Genitourinary () Paternal Grandfather Diabetes Brother SOCIAL HISTORY Social History Tobacco Use Smoking status: Former Packs/day: 2.00 Years: 15.00 Pack years: 30.00 Types: Cigarettes Quit date: 12/08/2017 Years since quittin.0 Smokeless tobacco: Never Vaping Use Vaping Use: Former Start date: 12/08/2017 Quit date: 01/08/2018 Substance Use Topics Alcohol use: Yes Comment: rare Drug use: Not Currently Comment: quit pot 2016. Medical Marijuana 2020. REVIEW OF SYSTEMS No recent weight gain or weight loss. Abdomen: No abdominal pain, nausea, vomiting, diarrhea, or constipation. No bloating, early satiety, indigestion, or increased flatulence. EXAM: BP 108/72 Wt 211 lb 9.6 oz (96.0kg) LMP 12/29/2021 GENERAL: pleasant, female in no apparent distress HEENT: Normocephalic, atraumatic, mucus membranes moist, and no lesions CHEST: Normal inspiratory effort NEURO: alert and oriented x3,exam grossly non-focal EXTREMITIES: normal ASSESSMENT/PLAN: 1. Iron deficiency anemia due to chronic blood loss - ICD9: 280.0, ICD10: D50.0 (primary diagnosis) - CBC + DIFF - IRON + TIBC - FERRITIN BLD 2. Irregular uterine bleeding - ICD9: 626.4, ICD10: N92.6 - Take Aygestin daily -Patient is a schedule appointment with one of the docs in the office to discuss possible ablation or hysterectomy due to adenomyosis with heavy irregular bleeding. Patient does have an ICD. She is not interested in a Mirena IUD. Patient finished last iron infusion on 12/22/2021 Christine Joseph APRN.CNP Medical Decision Making: Problems: Low: Stable chronic illness Data: Unique test(s) ordered: 3+ Risk: Low: Low risk from testing/treatment Medical Decision Making Level: 3 - Low documented in this encounterOhio [facility] Hospital08-09-2022 Miscellaneous Notes* Telephone Encounter - Shelley Flores Pss - 12/16/2021 12:11 PM EDT Rescheduled, patient notified and confirmed. * Telephone Encounter - Natacha Helton - 12/16/2021 9:30 AM EDT Pt had a in the family and needs to move today's treatment. Please call to r/s. documented in this encounterOhio [facility] Hospital08-02-2022 Miscellaneous Notes* Telephone Encounter - Huong Redding RN - 12/09/2021 1:38 PM EDT Patient notified. Huong Redding RN * Telephone Encounter - Christine Joseph APRN.CNP - 12/09/2021 12:47 PM EDT Pt should premedicated with Zofran and Imodium before transfusion. Increase water intake or drink Gatorade or Powerade to present dehydration. If she needs refills on the zofran I can send that in for her. Christine Joseph APRN.LEIF * Telephone Encounter - Latasha Stallings RN - 12/09/2021 11:55 AM EDT Patient called and states that she received iron infusion yesterday. Woke up this am with severe nausea and cramping , achy feeling in back and both hands. Has Zofran for nausea and was able to eat breakfast ok. Later this am, she felt gassy and had 1 episode of diarrhea. She is calling wondering if this is a side effect of iron infusion. This nurse reviewed side effects listed [facility]. Patient has another iron infusion scheduled for tomorrow (12/10/21) and she is concerned about getting more due to side effects she is having now. Patient aware that I will relay this information to Christine Joseph for advisement. Patient agreeablewith this. Khalida Stallings RN documented in this encounterOhio Valley Hospital07-28-2022 Miscellaneous Notes* Telephone Encounter - Rosana Singh - 12/04/2021 8:13 AM EDT Patient is reschuedled, aware of dates and times. Rosana Singh * Telephone Encounter - Natacha Helton - 12/03/2021 4:33 PM EDT Pt called stating she is needed to get the iron infusions back on the schedule based on her labs. documented in this encounterOhio Valley Hospital07-27-2022 Miscellaneous Notes* Telephone Encounter - Natacha Salas RN - 12/03/2021 4:24 PM EDT Patient voiced her relief with the below information. Would like to a visit to discuss with RM. Appointment given. Transferred to scheduling - would like to begin IV iron infusions. Natacha Salas RN * Telephone Encounter - Flor Castro MD - 12/03/2021 3:32 PM EDT Her anemia has improved but she is still mildly anemic. Her iron levels are still low. But nothing regarding this is dangerous or life-threatening. My recommendation would be to continue the iron infusions to get her iron stores improved. However, if she would prefer to make an appointment to discuss things virtual or in person that is fine. I am not sure what in particular she was worried about but would reassure her again that I see nothing that is alarming at this time. Flor Castro MD * Telephone Encounter - Baylee Islas RN - 12/03/2021 2:42 PM EDT Patient calling stating she viewed her recent lab results on MyChart and is having a panic attack. Per Patient she has a panic disorder and states she was feeling fine and they were holding on on heriron infusions until she repeated her blood work and now she is having a panic attack in regards toher results. Patient denies any dizziness or chest pain. Patient is having SOB, but states she has had SOB sinceher bleeding has started and is not new. Patient aware that Christine is out of the office today and she would like another provider to review her results. Patients previously cancelled all of her iron infusion appointments (see phone noted on 12/01) as she was feeling better. Baylee Islas RN documented in this encounterOhio Valley Hospital07-25-2022 Miscellaneous Notes* Telephone Encounter - Baylee Islas RN - 12/01/2021 3:25 PM EDT Patient notified and voiced understanding of below from provider. Patient states she will repeat her blood work tomorrow. Baylee Islas RN * Telephone Encounter - Natacha Salsa RN - 12/01/2021 1:31 PM EDT Left message for patient to call office. Natacha Salas RN * Telephone Encounter - Christine Joseph APRN.CNP - 12/01/2021 12:55 PM EDT I have placed an order for her to repeat labs. It's ok to hold off on the transfusions until we have the new labs. I too feel her frustration with this process and I'm will be looking into it. Christine Joseph APRN.CNP * Telephone Encounter - Natacha Salas RN - 12/01/2021 11:23 AM EDT Called patient to inquire if she had lab work done at another facility to know her levels were increasing. She did not. States she is taking BY MOUTH iron daily. Slowly feeling a little better. Concerned about getting the infusions and making her sick because she is hypersensitive to medications. Asking if she can have her iron level checked again to see if she still needs it since it's been so long she had her blood work done. Voiced her frustration that this process took a month. Patient may benefit from a call from the provider. She was to start her infusions today, but cancelled them all while on the phone with PSS. Natacha Salas RN * Telephone Encounter - Henrietta Barker Pss - 12/01/2021 11:08 AM EDT Patient calling to cancel iron infusions. Stating her iron levels have come up and she is feeling better. documented in this encounterOhio Valley Hospital07-14-2022 Miscellaneous Notes* Telephone Encounter - Huong Redding RN - 11/20/2021 4:28 PM EDT Patient now scheduled for iron infusions. Huong Redding RN * Telephone Encounter - Rosana Singh - 11/20/2021 11:16 AM EDT Patient has been approved for iron sucrose infusions. Tried contacting pt to schedule, went to , left message for pt to return call. Rosana Singh * Telephone Encounter - Christine Joseph APRN.CNP - 11/18/2021 9:34 AM EDT I have not. Christine Joseph APRN.CNP * Telephone Encounter - Natacha Salas RN - 11/13/2021 10:17 AM EDT Patient notified that her symptoms should be evaluated by her PCP. Aware that we are still waiting to hear regarding IV iron infusions. Transferred to PCP office to schedule an appointment. Natacha Salas RN * Telephone Encounter - Nazia Jaramillo MD - 11/13/2021 10:04 AM EDT As not having active vaginal bleeding I would recommend primary care evaluation for her symptoms. Also would get iron infusions started EMANI. Nazia Jaramillo MD * Telephone Encounter - Natacha Salas RN - 11/13/2021 9:24 AM EDT RM patient. Patient called requesting an update for scheduling IV iron infusions. Had additional labs done on 11/11/21. Blood Management referral placed by RM on 11/05/21. See 11/11/21 phone note regarding patient's symptoms. Patient called today. Tearful on the phone. Having trouble sleeping, fatigued all day, having heart palpitations on occasion, and SOB upon exertion. Patient is no longer bleeding. Bleeding stopped 4 days ago. Notified patient that her message would be sent to our provider fiberglass container winding operator and Blood Management. Natacha Salas RN documented in this encounterOhio Valley Hospital07-14-2022 Miscellaneous Notes* Telephone Encounter - Sandra Del Real - 11/20/2021 11:41 AM EDT Spoke with patient, advising how the process works re: authorization and scheduled. Sandra Del Real * Telephone Encounter - Balbina Briceno - 11/20/2021 11:21 AM EDT Patient returned call and concerned that she has not been scheduled and asking will she need to have labs drawn again prior to treatments starting. documented in this encounterOhio [facility] Hospital07-12-2022 History of Present illness Narrative* Mariza Reilly RN - 11/18/2021 2:20 PM EDT Patient referred to Blood Management for evaluation and treatment of pre- surgical anemia and/or iron deficiency. Non-surgical: menorrhagia Date of surgery: NA Medical/Surgical History: PAST MEDICAL HISTORY Diagnosis Date Asthma Atrial tachycardia (HCC) 2009 Atrioventricular block, complete (HCC) 07/31/2005 3rd degree AVB Bipolar affective (HCC) Dr. 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 Last Assessment & Plan: Underwent successful RA lead extraction and replacement yesterday, 09/01CXR demonstrates no pneumothroax Device interrogation pending Headache(784.0) MIGRAINES WITH AURA Panic disorder without agoraphobia 11/19/2011 Follows at [facility] Bipolar disorder possible, to be r/o (09/25/11) Primary cardiomyopathy (HCC) non ischemic PTSD (post-traumatic stress disorder) 11/19/2011 Follows at [facility] Schizoaffective disorder Unspecified schizophrenia Schizophrenia PAST SURGICAL HISTORY Procedure Laterality Date DELIVERY ONLY TIMES THREE ICD GENERATOR CHANGE 07/19/2020 [facility] IMPLANTABLE CARDIOVERTER DEFIBRILLATOR 05/10/2009 defib/pacer- [facility], Dr Hardy LIGLENKA FALLOPIAN TUBE NV ANESTH,PACEMAKER INSERTION 01/09/1992 Permanent Pacemaker Other significant Medical/Surgical history: - Prior diagnosis of anemia - Cardiac history - Blood loss Current Outpatient Medications Medication Sig ferrous sulfate 325 mg (65 mg iron) tablet Take 325 mg by mouth daily with breakfast. LORazepam (ATIVAN) 0.5 mg Take 0.5 mg by mouth twice daily as needed. norethindrone (AYGESTIN) 5 mg tablet Take 1 tablet by mouth once daily. ondansetron orally disintegrating (ZOFRAN ODT) 4 mg disintegrating tablet Take 4 mg by mouth every 8 hours as needed for nausea/vomiting. No current facility-administered medications for this visit. Current medications that may affect iron absorption and/or blood loss: - None Baseline laboratory values: Hemoglobin November 17, 2021 7:30am 10.3 g/dL WBC (k/uL) Date Value 11/05/2021 8.04 RBC (m/uL) Date Value 11/05/2021 3.99 Hemoglobin (g/dL) Date Value 11/05/2021 9.6 (L) Hematocrit (%) Date Value 11/05/2021 30.7 (L) MCV (fL) Date Value 11/05/2021 76.9 (L) MCH (pg) Date Value 11/05/2021 24.1 (L) MCHC (g/dL) Date Value 11/05/2021 31.3 RDW-CV (%) Date Value 11/05/2021 17.0 (H) Platelet Count (k/uL) Date Value 11/05/2021 241 MPV (fL) Date Value 11/05/2021 12.1 Iron Date Value Ref Range Status 11/11/2021 23 (L) 41 - 186 ug/dL Final TIBC Date Value Ref Range Status 11/11/2021 356 232 - 386 ug/dL Final Ferritin Date Value Ref Range Status 11/11/2021 17.8 14.7 - 205.1 ng/mL Final Vitamin B12 Date Value Ref Range Status 11/11/2021 456 232-1,245 pg/mL Final Transferrin Saturation Date Value Ref Range Status 11/11/2021 6.5 (L) 15.0 - 57.0 % Final Assess for the need to augment a patient s natural red blood cell production: - Blood transfusion avoidance - Iron depletion Recommendations according to Blood Management patient care guidelines: - Iron Sucrose 200 mg, IV infusion, dose(s) 4 Total iron deficit using Ganzoni equation = 892 mg (wt 96 kg/goal hgb 12 g/dl) Clinical information is sent to a provider for review and evaluation for treatment. documented in this encounterOhio Valley Hospital07-05-2022 Miscellaneous Notes* Telephone Encounter - Baylee Islas RN - 11/11/2021 1:27 PM EDT Patient notified and voiced understanding of below. Baylee Islas RN * Telephone Encounter - Tanisha Tompkins MD - 11/11/2021 1:17 PM EDT If bleeding is slow or stopped she can stop medication. If bleeding becomes heavy she should restart it. * Telephone Encounter - Huong Redding RN - 11/11/2021 10:29 AM EDT RM patient. Patient stopped at front end web designer today to discuss symptoms she has been having. Started onnorethindrone 5mg daily on 11/06/21 for prolonged bleeding. Bleeding then stopped 11/09/21. Since starting norethindrone she has been having dizziness, blurry vision, anxiety, unable to sleep well, moodchanges and headaches that all started around 11/08/21. She read the side effects of norethindrone and saw all of those as possible SE. She stopped iron supplement on 11/09/21 because she had iron studies drawn today for possible IV iron infusions. Plans to start that back up today. She is aware s/s are consistent with anemia too. Patient does have panic disorder and feels her anxiety has a part in symptoms, as well. However, she said she does feel worse being on this medication then she did beforestarting it even with the bleeding stopped. Asking if she should continue medication or not. Pleaseadvise in RM's absence. Huong Redding RN documented in this encounterOhio Valley Hospital06-29-2022 History of Present illness Narrative* Christine Joseph APRN.PAYROLL MACHINE OPERATOR - 11/05/2021 10:06 AM EDT Michell Wooten is a 46 year old female who presents for problem visit AUB for 6 week(s). HPI: Patient states her period started in September and she continued to bleed for 5 weeks. On October 24 she went to [facility] ED due to the heavy bleeding. They prescribed her Aygestin taper and she states that did help stop the bleeding, she was off the Aygestin for 2 days and started bleeding heavy again. Today is day 3 of the bleeding and it has slowed down today, the first 2 days are very heavy with lots of clots and she was using an overnight pad due to the heavy flow. Hemoglobinin ED was 10.5 today hemoglobin is 9.6. She is symptomatic with dizziness, nausea, fatigue, troubleconcentrating, and is pale in appearance. OB History T3 L3 SAB0 IAB0 Ectopic0 Multiple0 Live Births0 Milk Pickup Truck Driver History LMP: 08/24/2020, Having periods Age at Menarche: Age at First : Age at Menopause: Milk Pickup Truck Driver History Comments: Sexual Activity: Yes; Male; TUBAL LIGATION Contraception: Surgical PAST MEDICAL HISTORY Diagnosis Date Asthma Atrial tachycardia (HCC) 2009 Atrioventricular block, complete (HCC) 07/31/2005 3rd degree AVB Bipolar affective ([facility]) Dr. 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 Last Assessment & Plan: Underwent successful RA lead extraction and replacement yesterday, 09/01CXR demonstrates no pneumothroax Device interrogation pending Headache(784.0) MIGRAINES WITH AURA Panic disorder without agoraphobia 11/19/2011 Follows at [facility] Bipolar disorder possible, to be r/o (09/25/11) Primary cardiomyopathy (HCC) non ischemic PTSD (post-traumatic stress disorder) 11/19/2011 Follows at [facility] Schizoaffective disorder Unspecified schizophrenia Schizophrenia PAST SURGICAL HISTORY Procedure Laterality Date DELIVERY ONLY TIMES THREE ICD GENERATOR CHANGE 07/19/2020 [facility] IMPLANTABLE CARDIOVERTER DEFIBRILLATOR 05/10/2009 defib/pacer- [facility], Dr Hardy LIGATE FALLOPIAN TUBE [place] ANESTH,PACEMAKER INSERTION 01/09/1992 Permanent Pacemaker FAMILY HISTORY Problem Relation Age of Onset Asthma Mother Breast Cancer Mother developed age 61 other (leukemia) Mother 60 Hypertension Father Diabetes Father Coronary Artery Disease Father other (LIVER DISEASE) Father R/T ETOH ABUSE Genitourinary () Paternal Grandfather Diabetes Brother Social History Tobacco Use Smoking status: Former Smoker Packs/day: 2.00 Years: 15.00 Pack years: 30.00 Types: Cigarettes Quit date: 12/08/2017 Years since quittin.9 Smokeless tobacco: Never Used Vaping Use Vaping Use: Former Start date: 12/08/2017 Quit date: 01/08/2018 Substance Use Topics Alcohol use: Yes Comment: rare Drug use: Not Currently Comment: quit pot 2016. Medical Marijuana 2020. Current Outpatient Medications Medication Sig ondansetron orally disintegrating (ZOFRAN ODT) 4 mg disintegrating tablet Take 4 mg by mouth every 8 hours as needed for nausea/vomiting. diazePAM (VALIUM) 2 mg tablet Take 2 mg by mouth every 8 hours as needed. No current facility-administered medications for this visit. Allergies As of Date: 11/05/2021 Allergen Noted Reaction ADHESIVE TAPE-SILICONES 08/24/2006 LATEX 08/24/2006 LISINOPRIL 10/10/2012 Other: See Comments NAPROXEN 01/27/2005 PAXIL [PAROXETINE] 01/27/2005 Fully Assessed 03/26/2021 REVIEW OF SYSTEMS SEE HPI Expanded ROS: N/A Allergies and current medication updated:Yes EXAM: LMP 08/24/2020 GENERAL: pleasant, female in no apparent distress HEENT: Normocephalic, atraumatic, mucus membranes moist and no lesions DERMATOLOGY: Normal, without lesions, non-icteric, non-hirsute and pale CHEST: Normal inspiratory effort ABDOMEN: soft, non-tender and no masses PELVIC: external genitalia normal, normal [place]tholin's glands, urethra, [place]'s glands, no vulvar lesions, no cervical lesions, good vaginal support, physiologic discharge present, normal appearing perineal body and perianal region BIMANUAL: uterus normal size, shape and consistency, no adnexal masses, non- tender and no cervical motion tenderness NEURO: alert and oriented x3,exam grossly non-focal EXTREMITIES: normal ASSESSMENT/PLAN: 1. Abnormal uterine bleeding (AUB) - ICD9: 626.9, ICD10: N93.9 (primary diagnosis) - CBC + DIFF - BLOOD MANAGEMENT REFERRAL - Aygestin 5 mg daily - Discussed IUD to manage menses and heavy bleeding - Follow up if bleeding becomes heavy again or any other concerns 2. Iron deficiency anemia due to chronic blood loss - ICD9: 280.0, ICD10: D50.0 3. Abnormal hemoglobin (Hgb) (HCC) - ICD9: 282.7, ICD10: D58.2 Christine Joseph APRN.CNP Medical Decision Making: Problems: Moderate: New problem with uncertain prognosis Data: Unique test(s) ordered: 1 Risk: Low: Low risk from testing/treatment Moderate: Drug management Medical Decision Making Level: 4 - Moderate [facility] History of Present illness Narrative* Etta Clark-Jorge L - 12/14/2017 3:28 AM EDT December 14, 2017 The electronic medical record was reviewed to determine if the proposed sleep study conforms to [facility] Parameters for the Indications for Polysomnography and Related Procedures, or if the sleep study is indicated for other reasons. Indications for study: MARKO suspected with comorbid medical or sleep disorders: Heart failure or other [id number] cardiac disease Sleep study to be performed: Split Study-Polysomnogram with PAP titration Special instructions: Split night study if AHI > 15. Start with 5 cmH2O then titrate per protocol Target REM/supine sleep Add EtCO2 or Transcutaneous CO2 if available Etta Rojo I have read the above protocol, edited as needed, and agree to the plan Josh Peace III, PhD, FAASM * Adarsh Talbot Pss - 12/13/2017 4:25 PM EDT December 13, 2017 An order has been received for Polysomnogram (PSG) from [facility] Staff. Visit prep complete. Comments :No The sleep study is scheduled for 12/31. Insurance: Payor: [facility] MEDICAID / Plan: [facility] MEDICAID / Product Type: Medicaid / Adarsh Talbot Psr documented in [facility] History of Past illness Narrative* Problem Noted Date Resolved Date Failure of implantable cardioverter-defibrillato r lead 09/01/2012 03/26/2021 Overview: Last Assessment & Plan: Underwent successful RA lead extraction and replacement yesterday, 09/01 CXR demonstrates no pneumothroax Device interrogation pending PTSD (post-traumatic stress disorder) 11/19/2011 10/27/2017 Overview: Follows at [facility] Panic disorder without agoraphobia 11/19/2011 10/27/2017 Overview: Follows at [facility] Bipolar disorder possible, to be r/o (09/25/11) BREAST NIPPLE DISCHARGE 03/25/2006 11/26/19 16 WEIGHT GAIN, ABNORMAL 06/12/2005 11/26/2015 BIPOLAR (DEPRESSION) AFFECTI VE, DEPRESSED( In full remission) 06/12/2005 11/19/2011 Headache(784.0) 10/27/2017 Overview: Headaches Unspecified schizophrenia 2011 Overview: Schizophrenia documented as of this encounter (statuses as of 11/05/2021) [facility] of Past illness Narrative* Problem Noted Date Resolved Date Failure of implantable cardioverter-defibrillato r lead 09/01/2012 03/26/2021 Overview: Last Assessment & Plan: Underwent successful RA lead extraction and replacement yesterday, 09/01 CXR demonstrates no pneumothroax Device interrogation pending PTSD (post-traumatic stress disorder) 11/19/2011 10/27/2017 Overview: Follows at [facility] Panic disorder without agoraphobia 11/19/2011 10/27/2017 Overview: Follows at [facility] Bipolar disorder possible, to be r/o (09/25/11) BREAST NIPPLE DISCHARGE 03/25/2006 11/26/19 16 WEIGHT GAIN, ABNORMAL 06/12/2005 11/26/2015 BIPOLAR (DEPRESSION) AFFECTI VE, DEPRESSED( In full remission) 06/12/2005 11/19/2011 Headache(784.0) 10/27/2017 Overview: Headaches Unspecified schizophrenia 2011 Overview: Schizophrenia documented as of this encounter (statuses as of 11/11/2021) [facility] illness Narrative* Problem Noted Date Resolved Date Failure of implantable cardioverter-defibrillato r lead 09/01/2012 03/26/2021 Overview: Last Assessment & Plan: Underwent successful RA lead extraction and replacement yesterday, 09/01 CXR demonstrates no pneumothroax Device interrogation pending PTSD (post-traumatic stress disorder) 11/19/2011 10/27/2017 Overview: Follows at [facility] Panic disorder without agoraphobia 11/19/2011 10/27/2017 Overview: Follows at [facility] Bipolar disorder possible, to be r/o (09/25/11) BREAST NIPPLE DISCHARGE 03/25/2006 11/26/19 16 WEIGHT GAIN, ABNORMAL 06/12/2005 11/26/2015 BIPOLAR (DEPRESSION) AFFECTI VE, DEPRESSED( In full remission) 06/12/2005 11/19/2011 Headache(784.0) 10/27/2017 Overview: Headaches Unspecified schizophrenia 2011 Overview: Schizophrenia documented as of this encounter (statuses as of 11/18/2021) [facility] Narrative* Problem Noted Date Resolved Date Failure of implantable cardioverter-defibrillato r lead 09/01/2012 03/26/2021 Overview: Last Assessment & Plan: Underwent successful RA lead extraction and replacement yesterday, 09/01 CXR demonstrates no pneumothroax Device interrogation pending PTSD (post-traumatic stress disorder) 11/19/2011 10/27/2017 Overview: Follows at [facility] Panic disorder without agoraphobia 11/19/2011 10/27/2017 Overview: Follows at [facility] Bipolar disorder possible, to be r/o (09/25/11) BREAST NIPPLE DISCHARGE 03/25/2006 11/26/19 16 WEIGHT GAIN, ABNORMAL 06/12/2005 11/26/2015 BIPOLAR (DEPRESSION) AFFECTI VE, DEPRESSED( In full remission) 06/12/2005 11/19/2011 Headache(784.0) 10/27/2017 Overview: Headaches Unspecified schizophrenia 2011 Overview: Schizophrenia documented as of this encounter (statuses as of 11/20/2021) [facility] Narrative* Problem Noted Date Resolved Date Failure of implantable cardioverter-defibrillato r lead 09/01/2012 03/26/2021 Overview: Last Assessment & Plan: Underwent successful RA lead extraction and replacement yesterday, 09/01 CXR demonstrates no pneumothroax Device interrogation pending PTSD (post-traumatic stress disorder) 11/19/2011 10/27/2017 Overview: Follows at [facility] Panic disorder without agoraphobia 11/19/2011 10/27/2017 Overview: Follows at [facility] Bipolar disorder possible, to be r/o (09/25/11) BREAST NIPPLE DISCHARGE 03/25/2006 11/26/19 16 WEIGHT GAIN, ABNORMAL 06/12/2005 11/26/2015 BIPOLAR (DEPRESSION) AFFECTI VE, DEPRESSED( In full remission) 06/12/2005 11/19/2011 Headache(784.0) 10/27/2017 Overview: Headaches Unspecified schizophrenia 2011 Overview: Schizophrenia documented as of this encounter (statuses as of 11/20/2021) [facility] Narrative* Problem Noted Date Resolved Date Failure of implantable cardioverter-defibrillato r lead 09/01/2012 03/26/2021 Overview: Last Assessment & Plan: Underwent successful RA lead extraction and replacement yesterday, 09/01 CXR demonstrates no pneumothroax Device interrogation pending PTSD (post-traumatic stress disorder) 11/19/2011 10/27/2017 Overview: Follows at [facility] Panic disorder without agoraphobia 11/19/2011 10/27/2017 Overview: Follows at [facility] Bipolar disorder possible, to be r/o (09/25/11) BREAST NIPPLE DISCHARGE 03/25/2006 11/26/19 16 WEIGHT GAIN, ABNORMAL 06/12/2005 11/26/2015 BIPOLAR (DEPRESSION) AFFECTI VE, DEPRESSED( In full remission) 06/12/2005 11/19/2011 Headache(784.0) 10/27/2017 Overview: Headaches Unspecified schizophrenia 2011 Overview: Schizophrenia documented as of this encounter (statuses as of 11/20/2021) [facility] Narrative* Problem Noted Date Resolved Date Failure of implantable cardioverter-defibrillato r lead 09/01/2012 03/26/2021 Overview: Last Assessment & Plan: Underwent successful RA lead extraction and replacement yesterday, 09/01 CXR demonstrates no pneumothroax Device interrogation pending PTSD (post-traumatic stress disorder) 11/19/2011 10/27/2017 Overview: Follows at [facility] Panic disorder without agoraphobia 11/19/2011 10/27/2017 Overview: Follows at [facility] Bipolar disorder possible, to be r/o (09/25/11) BREAST NIPPLE DISCHARGE 03/25/2006 11/26/19 16 WEIGHT GAIN, ABNORMAL 06/12/2005 11/26/2015 BIPOLAR (DEPRESSION) AFFECTI VE, DEPRESSED( In full remission) 06/12/2005 11/19/2011 Headache(784.0) 10/27/2017 Overview: Headaches Unspecified schizophrenia 2011 Overview: Schizophrenia documented as of this encounter (statuses as of 12/01/2021) [facility] Narrative* Problem Noted Date Resolved Date Failure of implantable cardioverter-defibrillato r lead 09/01/2012 03/26/2021 Overview: Last Assessment & Plan: Underwent successful RA lead extraction and replacement yesterday, 09/01 CXR demonstrates no pneumothroax Device interrogation pending PTSD (post-traumatic stress disorder) 11/19/2011 10/27/2017 Overview: Follows at [facility] Panic disorder without agoraphobia 11/19/2011 10/27/2017 Overview: Follows at [facility] Bipolar disorder possible, to be r/o (09/25/11) BREAST NIPPLE DISCHARGE 03/25/2006 11/26/19 16 WEIGHT GAIN, ABNORMAL 06/12/2005 11/26/2015 BIPOLAR (DEPRESSION) AFFECTI VE, DEPRESSED( In full remission) 06/12/2005 11/19/2011 Headache(784.0) 10/27/2017 Overview: Headaches Unspecified schizophrenia 2011 Overview: Schizophrenia documented as of this encounter (statuses as of 12/03/2021) [facility] Narrative* Problem Noted Date Resolved Date Failure of implantable cardioverter-defibrillato r lead 09/01/2012 03/26/2021 Overview: Last Assessment & Plan: Underwent successful RA lead extraction and replacement yesterday, 09/01 CXR demonstrates no pneumothroax Device interrogation pending PTSD (post-traumatic stress disorder) 11/19/2011 10/27/2017 Overview: Follows at [facility] Panic disorder without agoraphobia 11/19/2011 10/27/2017 Overview: Follows at [facility] Bipolar disorder possible, to be r/o (09/25/11) BREAST NIPPLE DISCHARGE 03/25/2006 11/26/19 16 WEIGHT GAIN, ABNORMAL 06/12/2005 11/26/2015 BIPOLAR (DEPRESSION) AFFECTI VE, DEPRESSED( In full remission) 06/12/2005 11/19/2011 Headache(784.0) 10/27/2017 Overview: Headaches Unspecified schizophrenia 2011 Overview: Schizophrenia documented as of this encounter (statuses as of 12/08/2021) [facility] Narrative* Problem Noted Date Resolved Date Failure of implantable cardioverter-defibrillato r lead 09/01/2012 03/26/2021 Overview: Last Assessment & Plan: Underwent successful RA lead extraction and replacement yesterday, 09/01 CXR demonstrates no pneumothroax Device interrogation pending PTSD (post-traumatic stress disorder) 11/19/2011 10/27/2017 Overview: Follows at [facility] Panic disorder without agoraphobia 11/19/2011 10/27/2017 Overview: Follows at [facility] Bipolar disorder possible, to be r/o (09/25/11) BREAST NIPPLE DISCHARGE 03/25/2006 11/26/19 16 WEIGHT GAIN, ABNORMAL 06/12/2005 11/26/2015 BIPOLAR (DEPRESSION) AFFECTI VE, DEPRESSED( In full remission) 06/12/2005 11/19/2011 Headache(784.0) 10/27/2017 Overview: Headaches Unspecified schizophrenia 2011 Overview: Schizophrenia documented as of this encounter (statuses as of 12/09/2021) [facility] Narrative* Problem Noted Date Resolved Date Failure of implantable cardioverter-defibrillato r lead 09/01/2012 03/26/2021 Overview: Last Assessment & Plan: Underwent successful RA lead extraction and replacement yesterday, 09/01 CXR demonstrates no pneumothroax Device interrogation pending PTSD (post-traumatic stress disorder) 11/19/2011 10/27/2017 Overview: Follows at [facility] Panic disorder without agoraphobia 11/19/2011 10/27/2017 Overview: Follows at [facility] Bipolar disorder possible, to be r/o (09/25/11) BREAST NIPPLE DISCHARGE 03/25/2006 11/26/19 16 WEIGHT GAIN, ABNORMAL 06/12/2005 11/26/2015 BIPOLAR (DEPRESSION) AFFECTI VE, DEPRESSED( In full remission) 06/12/2005 11/19/2011 Headache(784.0) 10/27/2017 Overview: Headaches Unspecified schizophrenia 2011 Overview: Schizophrenia documented as of this encounter (statuses as of 12/10/2021) [facility] Narrative* Problem Noted Date Resolved Date Failure of implantable cardioverter-defibrillato r lead 09/01/2012 03/26/2021 Overview: Last Assessment & Plan: Underwent successful RA lead extraction and replacement yesterday, 09/01 CXR demonstrates no pneumothroax Device interrogation pending PTSD (post-traumatic stress disorder) 11/19/2011 10/27/2017 Overview: Follows at [facility] Panic disorder without agoraphobia 11/19/2011 10/27/2017 Overview: Follows at [facility] Bipolar disorder possible, to be r/o (09/25/11) BREAST NIPPLE DISCHARGE 03/25/2006 11/26/19 16 WEIGHT GAIN, ABNORMAL 06/12/2005 11/26/2015 BIPOLAR (DEPRESSION) AFFECTI VE, DEPRESSED( In full remission) 06/12/2005 11/19/2011 Headache(784.0) 10/27/2017 Overview: Headaches Unspecified schizophrenia 2011 Overview: Schizophrenia documented as of this encounter (statuses as of 12/16/2021) [facility] Narrative* Problem Noted Date Resolved Date Failure of implantable cardioverter-defibrillato r lead 09/01/2012 03/26/2021 Overview: Last Assessment & Plan: Underwent successful RA lead extraction and replacement yesterday, 09/01 CXR demonstrates no pneumothroax Device interrogation pending PTSD (post-traumatic stress disorder) 11/19/2011 10/27/2017 Overview: Follows at [facility] Panic disorder without agoraphobia 11/19/2011 10/27/2017 Overview: Follows at [facility] Bipolar disorder possible, to be r/o (09/25/11) BREAST NIPPLE DISCHARGE 03/25/2006 11/26/19 16 WEIGHT GAIN, ABNORMAL 06/12/2005 11/26/2015 BIPOLAR (DEPRESSION) AFFECTI VE, DEPRESSED( In full remission) 06/12/2005 11/19/2011 Headache(784.0) 10/27/2017 Overview: Headaches Unspecified schizophrenia 2011 Overview: Schizophrenia documented as of this encounter (statuses as of 12/18/2021) [facility] Narrative* Problem Noted Date Resolved Date Failure of implantable cardioverter-defibrillato r lead 09/01/2012 03/26/2021 Overview: Last Assessment & Plan: Underwent successful RA lead extraction and replacement yesterday, 09/01 CXR demonstrates no pneumothroax Device interrogation pending PTSD (post-traumatic stress disorder) 11/19/2011 10/27/2017 Overview: Follows at [facility] Panic disorder without agoraphobia 11/19/2011 10/27/2017 Overview: Follows at [facility] Bipolar disorder possible, to be r/o (09/25/11) BREAST NIPPLE DISCHARGE 03/25/2006 11/26/19 16 WEIGHT GAIN, ABNORMAL 06/12/2005 11/26/2015 BIPOLAR (DEPRESSION) AFFECTI VE, DEPRESSED( In full remission) 06/12/2005 11/19/2011 Headache(784.0) 10/27/2017 Overview: Headaches Unspecified schizophrenia 2011 Overview: Schizophrenia documented as of this encounter (statuses as of 12/22/2021) [facility] Narrative* Problem Noted Date Resolved Date Failure of implantable cardioverter-defibrillato r lead 09/01/2012 03/26/2021 Overview: Last Assessment & Plan: Underwent successful RA lead extraction and replacement yesterday, 09/01 CXR demonstrates no pneumothroax Device interrogation pending PTSD (post-traumatic stress disorder) 11/19/2011 10/27/2017 Overview: Follows at [facility] Panic disorder without agoraphobia 11/19/2011 10/27/2017 Overview: Follows at [facility] Bipolar disorder possible, to be r/o (09/25/11) BREAST NIPPLE DISCHARGE 03/25/2006 11/26/19 16 WEIGHT GAIN, ABNORMAL 06/12/2005 11/26/2015 BIPOLAR (DEPRESSION) AFFECTI VE, DEPRESSED( In full remission) 06/12/2005 11/19/2011 Headache(784.0) 10/27/2017 Overview: Headaches Unspecified schizophrenia 2011 Overview: Schizophrenia documented as of this encounter (statuses as of 12/29/2021) [facility] Narrative* Problem Noted Date Resolved Date Failure of implantable cardioverter-defibrillato r lead 09/01/2012 03/26/2021 Overview: Last Assessment & Plan: Underwent successful RA lead extraction and replacement yesterday, 09/01 CXR demonstrates no pneumothroax Device interrogation pending PTSD (post-traumatic stress disorder) 11/19/2011 10/27/2017 Overview: Follows at [facility] Panic disorder without agoraphobia 11/19/2011 10/27/2017 Overview: Follows at [facility] Bipolar disorder possible, to be r/o (09/25/11) BREAST NIPPLE DISCHARGE 03/25/2006 11/26/19 16 WEIGHT GAIN, ABNORMAL 06/12/2005 11/26/2015 BIPOLAR (DEPRESSION) AFFECTI VE, DEPRESSED( In full remission) 06/12/2005 11/19/2011 Headache(784.0) 10/27/2017 Overview: Headaches Unspecified schizophrenia 2011 Overview: Schizophrenia documented as of this encounter (statuses as of 12/30/2021) [facility] Narrative* Problem Noted Date Resolved Date Failure of implantable cardioverter-defibrillato r lead 09/01/2012 03/26/2021 Overview: Last Assessment & Plan: Underwent successful RA lead extraction and replacement yesterday, 09/01 CXR demonstrates no pneumothroax Device interrogation pending PTSD (post-traumatic stress disorder) 11/19/2011 10/27/2017 Overview: Follows at [facility] Panic disorder without agoraphobia 11/19/2011 10/27/2017 Overview: Follows at [facility] Bipolar disorder possible, to be r/o (09/25/11) BREAST NIPPLE DISCHARGE 03/25/2006 11/26/19 WEIGHT GAIN, ABNORMAL 06/12/2005 11/26/2015 BIPOLAR (DEPRESSION) AFFECTI VE, DEPRESSED( In full remission) 06/12/2005 11/19/2011 Headache(784.0) 10/27/2017 Overview: Headaches Unspecified schizophrenia 2011 Overview: Schizophrenia documented as of this encounter (statuses as of 01/19/2022) [facility]arrative* Problem Noted Date Resolved Date Failure of implantable cardioverter-defibrillato r lead 09/01/2012 03/26/2021 Overview: Last Assessment & Plan: Underwent successful RA lead extraction and replacement yesterday, 09/01 CXR demonstrates no pneumothroax Device interrogation pending PTSD (post-traumatic stress disorder) 11/19/2011 10/27/2017 Overview: Follows at [facility] Panic disorder without agoraphobia 11/19/2011 10/27/2017 Overview: Follows at [facility] Bipolar disorder possible, to be r/o (09/25/11) BREAST NIPPLE DISCHARGE 03/25/2006 11/26/19 16 WEIGHT GAIN, ABNORMAL 06/12/2005 11/26/2015 BIPOLAR (DEPRESSION) AFFECTI VE, DEPRESSED( In full remission) 06/12/2005 11/19/2011 Headache(784.0) 10/27/2017 Overview: Headaches Unspecified schizophrenia 2011 Overview: Schizophrenia documented as of this encounter (statuses as of 02/06/2022) [facility] Narrative* Problem Noted Date Resolved Date Failure of implantable cardioverter-defibrillato r lead 09/01/2012 03/26/2021 Overview: Last Assessment & Plan: Underwent successful RA lead extraction and replacement yesterday, 09/01 CXR demonstrates no pneumothroax Device interrogation pending PTSD (post-traumatic stress disorder) 11/19/2011 10/27/2017 Overview: Follows at [facility] PANIC DISORDER WITHOUT AGORAPHOBIA 11/19/2011 10/27/2017 Overview: Follows at [facility] Bipolar disorder possible, to be r/o (09/25/11) BREAST NIPPLE DISCHARGE 03/25/2006 11/26/19 16 WEIGHT GAIN, ABNORMAL 06/12/2005 11/26/2015 BIPOLAR (DEPRESSION) AFFECTI VE, DEPRESSED( In full remission) 06/12/2005 11/19/2011 Headache(784.0) 10/27/2017 Overview: Headaches SCHIZOPHRENIA NOS 11/19/2011 Overview: Schizophrenia documented as of this encounter (statuses as of 02/06/2022) [facility]arr[facility]* Problem Noted Date Resolved Date Failure of implantable cardioverter-defibrillato r lead 09/01/2012 03/26/2021 Overview: Last Assessment & Plan: Underwent successful RA lead extraction and replacement yesterday, 09/01 CXR demonstrates no pneumothroax Device interrogation pending PTSD (post-traumatic stress disorder) 11/19/2011 10/27/2017 Overview: Follows at [facility] Panic disorder without agoraphobia 11/19/2011 10/27/2017 Overview: Follows at [facility] Bipolar disorder possible, to be r/o (09/25/11) BREAST NIPPLE DISCHARGE 03/25/2006 11/26/19 16 WEIGHT GAIN, ABNORMAL 06/12/2005 11/26/2015 BIPOLAR (DEPRESSION) AFFECTI VE, DEPRESSED( In full remission) 06/12/2005 11/19/2011 Headache(784.0) 10/27/2017 Overview: Headaches Unspecified schizophrenia 2011 Overview: Schizophrenia documented as of this encounter (statuses as of 02/06/2022) [facility] Narrative* Problem Noted Date Resolved Date Failure of implantable cardioverter-defibrillato r lead 09/01/2012 03/26/2021 Overview: Last Assessment & Plan: Underwent successful RA lead extraction and replacement yesterday, 09/01 CXR demonstrates no pneumothroax Device interrogation pending PTSD (post-traumatic stress disorder) 11/19/2011 10/27/2017 Overview: Follows at [facility] Panic disorder without agoraphobia 11/19/2011 10/27/2017 Overview: Follows at [facility] Bipolar disorder possible, to be r/o (09/25/11) BREAST NIPPLE DISCHARGE 03/25/2006 11/26/19 16 WEIGHT GAIN, ABNORMAL 06/12/2005 11/26/2015 BIPOLAR (DEPRESSION) AFFECTI VE, DEPRESSED( In full remission) 06/12/2005 11/19/2011 Headache(784.0) 10/27/2017 Overview: Headaches Unspecified schizophrenia 2011 Overview: Schizophrenia documented as of this encounter (statuses as of 02/06/2022) [facility] Narrative* Problem Noted Date Resolved Date Failure of implantable cardioverter-defibrillato r lead 09/01/2012 03/26/2021 Overview: Last Assessment & Plan: Underwent successful RA lead extraction and replacement yesterday, 09/01 CXR demonstrates no pneumothroax Device interrogation pending PTSD (post-traumatic stress disorder) 11/19/2011 10/27/2017 Overview: Follows at [facility] Panic disorder without agoraphobia 11/19/2011 10/27/2017 Overview: Follows at [facility] Bipolar disorder possible, to be r/o (09/25/11) BREAST NIPPLE DISCHARGE 03/25/2006 11/26/19 16 WEIGHT GAIN, ABNORMAL 06/12/2005 11/26/2015 BIPOLAR (DEPRESSION) AFFECTI VE, DEPRESSED( In full remission) 06/12/2005 11/19/2011 Headache(784.0) 10/27/2017 Overview: Headaches Unspecified schizophrenia 2011 Overview: Schizophrenia documented as of this encounter (statuses as of 02/06/2022) [facility] Narrative* Problem Noted Date Resolved Date Failure of implantable cardioverter-defibrillato r lead 09/01/2012 03/26/2021 Overview: Last Assessment & Plan: Underwent successful RA lead extraction and replacement yesterday, 09/01 CXR demonstrates no pneumothroax Device interrogation pending PTSD (post-traumatic stress disorder) 11/19/2011 10/27/2017 Overview: Follows at [facility] Panic disorder without agoraphobia 11/19/2011 10/27/2017 Overview: Follows at [facility] Bipolar disorder possible, to be r/o (09/25/11) BREAST NIPPLE DISCHARGE 03/25/2006 11/26/19 16 WEIGHT GAIN, ABNORMAL 06/12/2005 11/26/2015 BIPOLAR (DEPRESSION) AFFECTI VE, DEPRESSED( In full remission) 06/12/2005 11/19/2011 Headache(784.0) 10/27/2017 Overview: Headaches Unspecified schizophrenia 2011 Overview: Schizophrenia documented as of this encounter (statuses as of 02/06/2022) [facility] History of Past illness Narrative* Problem Noted Date Resolved Date Failure of implantable cardioverter-defibrillato r lead 09/01/2012 03/26/2021 Overview: Last Assessment & Plan: Underwent successful RA lead extraction and replacement yesterday, 09/01 CXR demonstrates no pneumothroax Device interrogation pending PTSD (post-traumatic stress disorder) 11/19/2011 10/27/2017 Overview: Follows at [facility] Panic disorder without agoraphobia 11/19/2011 10/27/2017 Overview: Follows at [facility] Bipolar disorder possible, to be r/o (09/25/11) BREAST NIPPLE DISCHARGE 03/25/2006 11/26/19 16 WEIGHT GAIN, ABNORMAL 06/12/2005 11/26/2015 BIPOLAR (DEPRESSION) AFFECTI VE, DEPRESSED( In full remission) 06/12/2005 11/19/2011 Headache(784.0) 10/27/2017 Overview: Headaches Unspecified schizophrenia 2011 Overview: Schizophrenia documented as of this encounter (statuses as of 02/16/2022) [facility] History of Past illness Narrative* Problem Noted Date Resolved Date Failure of implantable cardioverter-defibrillato r lead 09/01/2012 03/26/2021 Overview: Last Assessment & Plan: Underwent successful RA lead extraction and replacement yesterday, 09/01 CXR demonstrates no pneumothroax Device interrogation pending PTSD (post-traumatic stress disorder) 11/19/2011 10/27/2017 Overview: Follows at [facility] Panic disorder without agoraphobia 11/19/2011 10/27/2017 Overview: Follows at [facility] Bipolar disorder possible, to be r/o (09/25/11) BREAST NIPPLE DISCHARGE 03/25/2006 11/26/19 16 WEIGHT GAIN, ABNORMAL 06/12/2005 11/26/2015 BIPOLAR (DEPRESSION) AFFECTI VE, DEPRESSED( In full remission) 06/12/2005 11/19/2011 Headache(784.0) 10/27/2017 Overview: Headaches Unspecified schizophrenia 2011 Overview: Schizophrenia documented as of this encounter (statuses as of 05/18/2022) [facility] History of Past illness Narrative* Problem Noted Date Resolved Date Failure of implantable cardioverter-defibrillato r lead 09/01/2012 03/26/2021 Overview: Last Assessment & Plan: Underwent successful RA lead extraction and replacement yesterday, 09/01 CXR demonstrates no pneumothroax Device interrogation pending PTSD (post-traumatic stress disorder) 11/19/2011 10/27/2017 Overview: Follows at [facility] Panic disorder without agoraphobia 11/19/2011 10/27/2017 Overview: Follows at [facility] Bipolar disorder possible, to be r/o (09/25/11) BREAST NIPPLE DISCHARGE 03/25/2006 11/26/19 16 WEIGHT GAIN, ABNORMAL 06/12/2005 11/26/2015 BIPOLAR (DEPRESSION) AFFECTI VE, DEPRESSED( In full remission) 06/12/2005 11/19/2011 Headache(784.0) 10/27/2017 Overview: Headaches Unspecified schizophrenia 2011 Overview: Schizophrenia documented as of this encounter (statuses as of 09/02/2022) [facility] Abnormal uterine bleeding (AUB)- Primary Iron deficiency anemia due to chronic blood loss Iron deficiency anemia secondary to blood loss (chronic) Abnormal hemoglobin (Hgb) (HCC) Other hemoglobinopathies [facility] Diagnosis Iron deficiency anemia due to chronic blood loss Iron deficiency anemia secondary to blood loss (chronic) Intestinal malabsorption, unspecified type [facility] Diagnosis Menorrhagia with irregular cycle- Primary Excessive or frequent menstruation [facility] Diagnosis Iron deficiency anemia due to chronic blood loss- Primary Iron deficiency anemia secondary to blood loss (chronic) [facility] Diagnosis Iron deficiency anemia due to chronic blood loss- Primary Iron deficiency anemia secondary to blood loss (chronic) [facility] Diagnosis Iron deficiency anemia due to chronic blood loss- Primary Iron deficiency anemia secondary to blood loss (chronic) [facility] Diagnosis Iron deficiency anemia due to chronic blood loss- Primary Iron deficiency anemia secondary to blood loss (chronic) Irregular uterine bleeding Irregular menstrual cycle [facility] Diagnosis Iron deficiency anemia due to chronic blood loss- Primary Iron deficiency anemia secondary to blood loss (chronic) Abnormal uterine bleeding (AUB) Adenomyosis Endometriosis of uterus [facility] Diagnosis Iron deficiency anemia due to chronic blood loss- Primary Iron deficiency anemia secondary to blood loss (chronic) Abnormal uterine bleeding (AUB) [facility] Diagnosis Special screening for malignant neoplasms, colon [facility] Diagnosis Iron deficiency anemia due to chronic blood loss Iron deficiency anemia secondary to blood loss (chronic) [facility] Diagnosis Encounter for screening mammogram for breast cancer [facility] Diagnosis Blood in stool- Primary Constipation, unspecified constipation type Anemia, unspecified type [facility] Diagnosis Migraine with aura and without status migrainosus, not intractable- Primary Migraine with aura, without mention of intractable migraine without mention of status migrainosus documented in this encounter [facility] for referral (narrative)* Outpatient Procedure (Routine) - Pending Review Specialty Diagnoses / Procedures Referred By Rusty south Referred To Contact [facility] Diagnoses Abnormal uterine bleeding (AUB) Procedures ENDOMETRIAL BIOPSY ENDOMETRIAL BX W/WO ENDOCERVIX BX W/O DILAT SPX Flor Castro MD [address] [place] [address] [facility] [address] [place] [address] Referral ID Status Reason Start Date Expiration Date Visits Requested Visits Authorized [id number] Pending Review Auto-Generat ed Referral 12/30/2021 12/30/2022 1 1 [facility] Diagnostic Procedure Only (Routine) - Pending Review Specialty Diagnoses / Procedures Referred By Rusty south Referred To Contact [facility] Diagnoses Encounter for screening mammogram for breast cancer Procedures SHANNA SCREENING SCREENING MAMMOGRAPHY BI 2-VIEW BREAST INC CAD Mihir Lock MD [address] [place] [address] [facility] [address] [place] [address] Referral ID Status Reason Start Date Expiration Date Visits Requested Visits Authorized [id number] Pending Review Auto-Generat ed Referral 05/13/2022 06/12/2023 1 1 [facility] Summary Purpose Family History No Family History Records FoundNo Family History Records FoundNo Family History Records Found Advance Directives No Advanced Directives Records FoundNo Advanced Directives Records FoundNo Advanced Directives Records Found Medications Administered Section Inactive Administered Medications - up to 3 most recent administrations Medication Order MAR Action Action Date Dose Rate Site iron sucrose 200 mg in NaCl 0.9% 100ml (VENOFER) 200 mg, INTRAVENOUS, at 400 mL/hr, Administer over 15 Minutes, ONCE, 1 dose, On 12/08/21 at 1000, Please conduct a 30 minute post dose observation. X 4 doses New Bag/Syringe/Bottle 12/08/2021 10:03 AM EDT 200 mg 400 mL/hr Inactive Administered Medications - up to 3 most recent administrations Medication Order MAR Action Action Date Dose Rate Site iron sucrose 200 mg in NaCl 0.9% 100ml (VENOFER) 200 mg, INTRAVENOUS, at 400 mL/hr, Administer over 15 Minutes, ONCE, 1 dose, On Wed12/10/21 at 1400, Please conduct a 30 minute post dose observation. X 4 doses New Bag/Syringe/Bottle 12/10/2021 1:51 PM EDT 200 mg 400 mL/hr Inactive Administered Medications - up to 3 most recent administrations Medication Order MAR Action Action Date Dose Rate Site iron sucrose 200 mg in NaCl 0.9% 100ml (VENOFER) 200 mg, INTRAVENOUS, at 400 mL/hr, Administer over 15 Minutes, ONCE, 1 dose, On Dalia 12/18/21 at 1330, Please conduct a 30 minute post dose observation. X 4 doses New Bag/Syringe/Bottle 12/18/2021 1:34 PM EDT 200 mg 400 mL/hr Inactive Administered Medications - up to 3 most recent administrations Medication Order MAR Action Action Date Dose Rate Site iron sucrose 200 mg in NaCl 0.9% 100ml (VENOFER) 200 mg, INTRAVENOUS, at 400 mL/hr, Administer over 15 Minutes, ONCE, 1 dose, On 12/22/21 at 1330, Please conduct a 30 minute post dose observation. 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 [address] [place] [address] Referral ID Status Reason Start Date Expiration Date Visits Requested Visits Authorized [id number] Authorized PCP Requested Referral 09/02/2022 09/02/2023 1 1 Additional Source Comments INFORMATION SOURCE (unrecogn ized section and content) DATE CREATED AUTHOR AUTHOR'S ORGANIZ ATION 04/09/2023 [facility] DATE CREATED AUTHOR AUTHOR'S ORGANIZ ATION 04/19/2023 [facility] Source Comments (unrecognize d section and content) In the event this informatio n is protected by the Federal Confidentiality of Alcohol and Drug Abuse Patient Records regulations: The Federal rules restrict any use of the information to criminally investigate or prosecute any alcohol or drug abuse patient.[facility] the event this information is protected by the Federal Confidentiality of Alcohol and Drug Abuse Patient Records regulations: The Federal rules restrict any use of the information to criminally investigate or prosecute any alcohol or drug abuse patient.[facility] the event this information is protected by the Federal Confidentiality of Alcohol and Drug Abuse Patient Records regulations: The Federal rules restrict any use of the information to criminally investigate or prosecute any alcohol or drug abuse patient.[facility] the event this information is protected by the Federal Confidentiality of Alcohol and Drug Abuse Patient Records regulations: The Federal rules restrict any use of the information to criminally investigate or prosecute any alcohol or drug abuse patient.[facility]In the event this information is protected by the Federal Confidentiality of Alcohol and Drug Abuse Patient Records regulations: The Federal rules restrict any use of the information to criminally investigate or prosecute any alcohol or drug abuse patient.[facility] the event this information is protected by the Federal Confidentiality of Alcohol and Drug Abuse Patient Records regulations: The Federal rules restrict any use of the information to criminally investigate or prosecute any alcohol or drug abuse patient.[facility] the event this information is protected by the Federal Confidentiality of Alcohol and Drug Abuse Patient Records regulations: The Federal rules restrict any use of the information to criminally investigate or prosecute any alcohol or drug abuse patient.[facility] the event this information is protected by the Federal Confidentiality of Alcohol and Drug Abuse Patient Records regulations: The Federal rules restrict any use of the information to criminally investigate or prosecute any alcohol or drug abuse patient.[facility] the event this information is protected by the Federal Confidentiality of Alcohol and Drug Abuse Patient Records regulations: The Federal rules restrict any use of the information to criminally investigate or prosecute any alcohol or drug abuse patient.[facility] the event this information is protected by the Federal Confidentiality of Alcohol and Drug Abuse Patient Records regulations: The Federal rules restrict any use of the information to criminally investigate or prosecute any alcohol or drug abuse patient.[facility]In the event this information is protected by the Federal Confidentiality of Alcohol and Drug Abuse Patient Records regulations: The Federal rules restrict any use of the information to criminally investigate or prosecute any alcohol or drug abuse patient.[facility]In the event this information is protected by the Federal Confidentiality of Alcohol and Drug Abuse Patient Records regulations: The Federal rules restrict any use of the information to criminally investigate or prosecute any alcohol or drug abuse patient.[facility]In the event this information is protected by the Federal Confidentiality of Alcohol and Drug Abuse Patient Records regulations: The Federal rules restrict any use of the information to criminally investigate or prosecute any alcohol or drug abuse patient.[facility]In the event this information is protected by the Federal Confidentiality of Alcohol and Drug Abuse Patient Records regulations: The Federal rules restrict any use of the information to criminally investigate or prosecute any alcohol or drug abuse patient.[facility]In the event this information is protected by the Federal Confidentiality of Alcohol and Drug Abuse Patient Records regulations: The Federal rules restrict any use of the information to criminally investigate or prosecute any alcohol or drug abuse patient.[facility] HospitalIn the event this information is protected by the Federal Confidentiality of Alcohol and Drug Abuse Patient Records regulations: The Federal rules restrict any use of the information to criminally investigate or prosecute any alcohol or drug abuse patient.[facility]In the event this information is protected by the Federal Confidentiality of Alcohol and Drug Abuse Patient Records regulations: The Federal rules restrict any use of the information to criminally investigate or prosecute any alcohol or drug abuse patient.[facility] HospitalIn the event this information is protected by the Federal Confidentiality of Alcohol and Drug Abuse Patient Records regulations: The Federal rules restrict any use of the information to criminally investigate or prosecute any alcohol or drug abuse patient.[facility] HospitalIn the event this information is protected by the Federal Confidentiality of Alcohol and Drug Abuse Patient Records regulations: The Federal rules restrict any use of the information to criminally investigate or prosecute any alcohol or drug abuse patient.[facility] HospitalIn the event this information is protected by the Federal Confidentiality of Alcohol and Drug Abuse Patient Records regulations: The Federal rules restrict any use of the information to criminally investigate or prosecute any alcohol or drug abuse patient.[facility] HospitalIn the event this information is protected by the Federal Confidentiality of Alcohol and Drug Abuse Patient Records regulations: The Federal rules restrict any use of the information to criminally investigate or prosecute any alcohol or drug abuse patient.[facility] HospitalIn the event this information is protected by the Federal Confidentiality of Alcohol and Drug Abuse Patient Records regulations: The Federal rules restrict any use of the information to criminally investigate or prosecute any alcohol or drug abuse patient.[facility] HospitalIn the event this information is protected by the Federal Confidentiality of Alcohol and Drug Abuse Patient Records regulations: The Federal rules restrict any use of the information to criminally investigate or prosecute any alcohol or drug abuse patient.[facility] HospitalIn the event this information is protected by the Federal Confidentiality of Alcohol and Drug Abuse Patient Records regulations: The Federal rules restrict any use of the information to criminally investigate or prosecute any alcohol or drug abuse patient.[facility]In the event this information is protected by the Federal Confidentiality of Alcohol and Drug Abuse Patient Records regulations: The Federal rules restrict any use of the information to criminally investigate or prosecute any alcohol or drug abuse patient.[facility]In the event this information is protected by the Federal Confidentiality of Alcohol and Drug Abuse Patient Records regulations: The Federal rules restrict any use of the information to criminally investigate or prosecute any alcohol or drug abuse patient.[facility] HospitalIn the event this information is protected by the Federal Confidentiality of Alcohol and Drug Abuse Patient Records regulations: The Federal rules restrict any use of the information to criminally investigate or prosecute any alcohol or drug abuse patient.[facility] HospitalIn the event this information is protected by the Federal Confidentiality of Alcohol and Drug Abuse Patient Records regulations: The Federal rules restrict any use of the information to criminally investigate or prosecute any alcohol or drug abuse patient.[facility]In the event this information is protected by the Federal Confidentiality of Alcohol and Drug Abuse Patient Records regulations: The Federal rules restrict any use of the information to criminally investigate or prosecute any alcohol or drug abuse patient.[facility]In the event this information is protected by the Federal Confidentiality of Alcohol and Drug Abuse Patient Records regulations: The Federal rules restrict any use of the information to criminally investigate or prosecute any alcohol or drug abuse patient.[facility]In the event this information is protected by the Federal Confidentiality of Alcohol and Drug Abuse Patient Records regulations: The Federal rules restrict any use of the information to criminally investigate or prosecute any alcohol or drug abuse patient.[facility] HospitalIn the event this information is protected by the Federal Confidentiality of Alcohol and Drug Abuse Patient Records regulations: The Federal rules restrict any use of the information to criminally investigate or prosecute any alcohol or drug abuse patient.[facility] HospitalIn the event this information is protected by the Federal Confidentiality of Alcohol and Drug Abuse Patient Records regulations: The Federal rules restrict any use of the information to criminally investigate or prosecute any alcohol or drug abuse patient.[facility] HospitalIn the event this information is protected by the Federal Confidentiality of Alcohol and Drug Abuse Patient Records regulations: The Federal rules restrict any use of the information to criminally investigate or prosecute any alcohol or drug abuse patient.[facility] HospitalIn the event this information is protected by the Federal Confidentiality of Alcohol and Drug Abuse Patient Records regulations: The Federal rules restrict any use of the information to criminally investigate or prosecute any alcohol or drug abuse patient.[facility] HospitalIn the event this information is protected by the Federal Confidentiality of Alcohol and Drug Abuse Patient Records regulations: The Federal rules restrict any use of the information to criminally investigate or prosecute any alcohol or drug abuse patient.[facility] HospitalIn the event this information is protected by the Federal Confidentiality of Alcohol and Drug Abuse Patient Records regulations: The Federal rules restrict any use of the information to criminally investigate or prosecute any alcohol or drug abuse patient.[facility] Reason for Visit (unrecogniz ed section and content) Specialty Diagnoses / Procedures Referred By Rusty south Referred To Contact Diagnoses Iron deficiency anemia due to chronic blood loss Procedures IRON SUCROSE INJECTION PER 1 MG Christine Joseph, JOSR.PAYROLL MACHINE OPERATOR [address] [place] [address] [facility] [address] [place] [address] Referral ID Status Reason Start Date Expiration Date V isits Requested Visits Authorized [id number] Authorized 11/20/2021 05/09/2022 99 99 Reason Comments Menstrual Problem Reason Comments Patient Question Reason Comments Patient Update Anemia Reason Comments Appointment Reason Comments Results Reason Comments Infusion Reason Comments Medication Problem Iron infusion Reason Comments Appointment Cancelled Reason Comments Irregular Menstrual Cycle Reason Comments Discussion Surgical options Reason Comments Schedule Surgery Reason Comments Psg Check In (Adult) Reason Onset Date Comments Pain 02/06/2022 Pain from ablati on D & C done yesterday. Patient is asking for something for the pain the provider refused to give her anything . Reason Comments blood in stool - 6-7 months Constipation Reason Comments ED Follow-up Care Teams (unrecognized sec tion and content) [employer] Cashier Relationship Specialty Start Date End Date Mihir Lock MD [address] [place] [address] PCP - General Internal Medicine 02/19/16 Alexis Greenfield, DO Primary Staff Physician Cardiology 07/26/18 [employer] Cashier Relationship Specialty Start Date End Date Mihir Lock MD [address] [place] [address] PCP - General Internal Medicine 02/19/16 Alexis Greenfield DO Primary Staff Physician Cardiology 07/26/18 [employer] Station Cashier Relationship Specialty Start Date End Date Mihir Lock MD [address] [facility] [place] [address] PCP - General Internal Medicine 02/19/16 Alexis Greenfield DO Primary Staff Physician Cardiology 07/26/18 Gas Station Cashier Relationship Specialty Start Date End Date Mihir Lock MD [address] [facility] [place] [address] PCP - General Internal Medicine 02/19/16 Alexis Greenfield DO Primary Staff Physician Cardiology 07/26/18 [employer] Station Cashier Relationship Specialty Start Date End Date Mihir Lock MD [address] [facility] [place] [address] PCP - General Internal Medicine 02/19/16 Alexis Greenfield, DO Primary Staff Physician Cardiology 07/26/18 Gas Station Cashier Relationship Specialty Start Date End Date Mihir Lock MD [address] [place] [address] PCP - General Internal Medicine 02/19/16 Alexis Greenfield, DO Primary Staff Physician Cardiology 07/26/18 [employer] Station Cashier Relationship Specialty Start Date End Date Mihir Lock MD [address] [place] [address] PCP - General Internal Medicine 02/19/16 Alexis Greenfield, DO Primary Staff Physician Cardiology 07/26/18 [employer] Station Cashier Relationship Specialty Start Date End Date iMhir Lock MD [address] [facility] [place] [address] PCP - General Internal Medicine 02/19/16 Alexis Greenfield, DO Primary Staff Physician Cardiology 07/26/18 [employer] Station Cashier Relationship Specialty Start Date End Date Mihir Lock MD [address] [facility] [place] [address] PCP - General Internal Medicine 02/19/16 Alexis Greenfield, DO Primary Staff Physician Cardiology 07/26/18 Gas Station Cashier Relationship Specialty Start Date End Date Mihir Lock MD [address] [facility] [place] [address] PCP - General Internal Medicine 02/19/16 Alexis Greenfield, DO Primary Staff Physician Cardiology 07/26/18 Gas Station Cashier Relationship Specialty Start Date End Date Mihir Lock MD [address] [place] [address] PCP - General Internal Medicine 02/19/16 Alexis Greenfield, DO Primary Staff Physician Cardiology 07/26/18 Gas Station Cashier Relationship Specialty Start Date End Date Mihir Lock MD [address] [place], [place] [id number] PCP - General Internal Medicine 02/19/16 Alexis Greenfield, DO Primary Staff Physician Cardiology 07/26/18 Gas Station Cashier Relationship Specialty Start Date End Date Love Galvez PCP - General 09/03/05 07/26/13 Pcp, No PCP - General 07/27/13 03/09/14 Pcp, No PCP - General Internal Medicine 06/18/14 08/30/14 Flores Chao MD [address] [place] [address] PCP - General Internal Medicine 08/31/14 02/18/16 Mihir Lock MD [address] [place] [address] PCP - General Internal Medicine 02/19/16 Alexis Greenfield, DO Primary Staff Physician Cardiology 08/08/14 6 Alexis Greenfield DO Primary Staff Physician Cardiology 07/26/18 Alexis Greenfield, DO Primary Staff Physician Cardiology 07/26/18 Gas Station Cashier Relationship Specialty Start Date End Date Mihir Lock MD [address] [place] [address] PCP - General Internal Medicine 02/19/16 Alexis Greenfield, DO Primary Staff Physician Cardiology 07/26/18 Gas Station Cashier Relationship Specialty Start Date End Date Mihir Lock MD [address] [place] [address] PCP - General Internal Medicine 02/19/16 Alexis Greenfield DO Primary Staff Physician Cardiology 07/26/18 Alexis Greenfield, DO Primary Staff Physician Cardiology 07/26/18 Gas Station Cashier Relationship Specialty Start Date End Date Mihir Lock MD [address] [place] [address] PCP - General Internal Medicine 02/19/16 Alexis Greenfield, DO Primary Staff Physician Cardiology 07/26/18 Gas Station Cashier Relationship Specialty Start Date End Date Pcp, No PCP - General Internal Medicine 06/18/14 08/30/14 Flores Chao MD [address] [facility] [place] [address] PCP - General Internal Medicine 08/31/14 02/18/16 Mihir Lock MD [address] [facility] [place] [address] PCP - General Internal Medicine 02/19/16 Alexis Greenfield, DO Primary Staff Physician Cardiology 08/08/14 6 Alexis Greenfield, DO Primary Staff Physician Cardiology 07/26/18 Alexis Greenfield, DO Primary Staff Physician Cardiology 07/26/18 Gas Station Cashier Relationship Specialty Start Date End Date Mihir Lock MD [address] [place], [place] [id number] [phone] PCP - General Internal Medicine 02/19/16 Alexis Greenfield DO Primary Staff Physician Cardiology 07/26/18 Gas Station Cashier Relationship Specialty Start Date End Date Mihir Lock MD [address] [place] [address] PCP - General Internal Medicine 02/19/16 Alexis Greenfield DO Primary Staff Physician Cardiology 07/26/18 Gas Station Cashier Relationship Specialty Start Date End Date Love Galvez PCP - General 09/03/05 07/26/13 Pcp, No PCP - General 07/27/13 03/09/14 Pcp, No PCP - General Internal Medicine 06/18/14 08/30/14 Flores Chao MD [address] [place] [address] PCP - General Internal Medicine 08/31/14 02/18/16 Mihir Lock MD [address] [place] [address] PCP - General Internal Medicine 02/19/16 Alexis Greenfield, DO Primary Staff Physician Cardiology 08/08/14 6 Alexis Greenfield, DO Primary Staff Physician Cardiology 07/26/18 Alexis Greenfield, DO Primary Staff Physician Cardiology 07/26/18 Gas Station Cashier Relationship Specialty Start Date End Date Flores Chao MD [address] [place], [place] [id number] [phone] PCP - General Internal Medicine 08/31/14 02/18/16 Mihir Lock MD [address] [place], [place] [id number] [phone] PCP - General Internal Medicine 02/19/16 Alexis Greenfield, DO Primary Staff Physician Cardiology 08/08/14 6 Alexis Greenfield, DO Primary Staff Physician Cardiology 07/26/18 Alexis Greenfield, DO Primary Staff Physician Cardiology 07/26/18 Gas Station Cashier Relationship Specialty Start Date End Date Mihir Lock MD [address] [place] [address] PCP - General Internal Medicine 02/19/16 Alexis Greenfield, DO Primary Staff Physician Cardiology 07/26/18 Alexis Greenfield, DO Primary Staff Physician Cardiology 07/26/18 Gas Station Cashier Relationship Specialty Start Date End Date Mihir Lock MD [address] [place] [address] PCP - General Internal Medicine 02/19/16 Alexis Greenfield, [address] [place] [address] Primary Staff Physician Cardiology 07/26/18 Gas Station Cashier Relationship Specialty Start Date End Date Mihir Lock MD [address] [place] [address] PCP - General Internal Medicine 02/19/16 Alexis Greenfield DO [address] [place] [address] Primary Staff Physician Cardiology 07/26/18 Gas Station Cashier Relationship Specialty Start Date End Date Mihir Lock MD [address] [place] [address] PCP - General Internal Medicine 02/19/16 Alexis Greenfield, DO [address] [place] [address] Primary Staff Physician Cardiology 07/26/18 FOR RECORDS PERTAINING TO PATIENTS WHO ARE OR HAVE BEEN ENROLLED IN A CHEMICAL DEPENDENCY/SUBSTANCEABUSE PROGRAM, SOME INFORMATION MAY BE OMITTED. This clinical summary was aggregated from multiple sources. Caution should be exercised in using it in the provision of clinical care. This summary normalizes information from multiple sources, and as a consequence, information in this document may materially change the coding, format and clinical context of patient data. In addition, data may be omitted in some cases. CLINICAL DECISIONS SHOULD BE BASED ON THE PRIMARY CLINICAL RECORDS. [facility]. provides no warranty or guarantee of the accuracy or completeness of information in this document.
--- NOTE | 2023-07-18 16:18 | ED.VIS.GI ---
HPI <FERNANDO Clark - Last Filed: 07/18/23 18:34> HPI - GI History of Present Illness Chief Complaint: GI Bleed Narrative Narrative: Patient presenting today due to concerns for bright red blood that she has noticed in her bowel movements intermittently over the past year. She reports that she does have a history of hemorrhoids. She does have an appointment with her GI doctor in August to schedule colonoscopy. This has been on hold due to her history of congenital heart block and pacemaker placement. She reports that over the past 5 days she has noticed a lump to her rectum and a sensation of rectal pressure and pain. Today after having a bowel movement she noticed what felt like a piece of tissue hanging out of her rectum and became concerned and wanted to come in for evaluation. She reports that she does struggle with constipation. She has also had indigestion over the past week that is worse when her stomach is empty or after she eats. She has been taking Tums with moderate relief. She denies any fever, chills, abdominal pain, and melena. [facility] <FERNANDO Clark - Last Filed: 07/18/23 18:34> [facility] Medical History Bulimia Cardiology follow-up encounter Deliberate self-cutting Easy bruising Former smoker Heartburn History of complete heart block History of echocardiogram History of edema History of pacemaker Iron deficiency anemia Marijuana use Migraine headache Panic anxiety syndrome PTSD (post-traumatic stress disorder) Restless legs Sleep apnea Wears dentures Wears glasses Home Medications ondansetron 4 mg disintegrating tablet 4 mg PO Q8H PRN PRN Nausea #10 tabs 03/19/21 [Rx Last Taken Unknown] lorazepam 0.5 mg tablet 0.5 mg PO DAILY PRN PRN Anxiety 01/30/22 [History Last Taken 02/05/22] Allergy/AdvReac Type Severity Reaction Status Date / Time sertraline [From Zoloft] Allergy Mild Other Verified 07/18/23 15:27 tramadol Allergy Nausea Verified 07/18/23 15:27 Antihistamines - AdvReac Other Verified 07/18/23 15:27 Ethylenediamine naproxen AdvReac Other Verified 07/18/23 15:27 paroxetine HCl [From Paxil] AdvReac Other Verified 07/18/23 15:27 Family History Other Cardiac defibrillator in place Surgical History History of cardiac catheterization History of implantable cardiac defibrillator (ICD) Social History Smoking Status: Current some day smoker tobacco type: cigarettes ROS <FERNANDO Clark - Last Filed: 07/18/23 18:34> ROS ED Constitutional Constitutional ED: Denies chills or fever(s) Cardiovascular Cardiovascular: Denies chest pain Respiratory/Chest Respiratory/Chest: Denies cough or dyspnea Gastrointestinal Gastrointestinal: Reports dyspepsia and hemorrhoids; Denies abdominal pain, nausea or vomiting Genitourinary Genitourinary ED: Denies dysuria, hematuria or urinary urgency Musculoskeletal Musculoskeletal: Denies arthralgias or myalgias Integumentary Denies rash Neurologic Neurologic: Denies weakness EXAM <FERNANDO Clark - Last Filed: 07/18/23 18:34> Physical Exam Const Vital Signs: 07/18/23 15:27 07/18/23 18:06 Temperature 97.7 F L 97.6 F L Temperature Source Temporal Pulse Rate 71 74 Respiratory Rate 18 16 Blood Pressure 137/87 H 123/81 H Blood Pressure Mean 103 95 Pulse Ox 100 97 Oxygen Delivery Method Room Air Positive well nourished, well developed and no apparent distress General Appearance ED: well developed HEENT Reports normocephalic and head/scalp atraumatic Mouth ED: Yes moist mucous membranes normal Eyes PERRL and EOMs intact bilaterally Neck full ROM and supple Chest Wall inspection of chest normal Resp normal respiratory effort and clear to auscultation bilaterally Cardio regular rate and regular rhythm GI soft to palpation, non-tender, non-distended and no masses GI Narrative: Rectal examination performed with nurse in the room. Third-degree nonthrombosed hemorrhoid noticed around, this was easily reduced, normal sphincter tone, no blood noted on DELLA Back/Spine normal ROM and normal to inspection Extremity normal to inspection and full ROM Neuro oriented x3, CN's II-XII intact bilaterally, moves all extremities, no focal motor deficits and no sensory deficits noted Sensorium / Orientation: awake and alert Psych mental status grossly normal and thought process normal Skin no rashes or lesions noted and no wounds <Dr. Corey Adorno DO - Last Filed: 07/18/23 23:27> Physical Exam Const Vital Signs: 07/18/23 15:27 07/18/23 18:06 Temperature 97.7 F L 97.6 F L Temperature Source Temporal Pulse Rate 71 74 Respiratory Rate 18 16 Blood Pressure 137/87 H 123/81 H Blood Pressure Mean 103 95 Pulse Ox 100 97 Oxygen Delivery Method Room Air MDM <FERNANDO Clark - Last Filed: 07/18/23 18:34> [facility] Narrative Medical decision making narrative: Patient presenting today due to concerns for fullness in her rectum and tissue that she felt tingling out of her rectum today after having a bowel movement. She does have a previous history of hemorrhoids and is not sure if that is what this is. On rectal examination she does have a nonthrombosed hemorrhoid, this was reduced easily. She does deal with chronic constipation and reports that because of her history of anxiety she does not eat a lot of different foods, she mainly eats meat and sometimes eats vegetables, no fruit. I did encourage her to eat more fiber and to consider taking Metamucil for fiber supplementation. She also has had indigestion which she is taking Tums for. I did give her a dose of Pepcid here. However, she does not want any prescriptions for her reflux as she is worried they will cause her anxiety. Abdominal x-ray was obtained, no bowel obstruction. Her abdomen is soft and nontender. I encouraged that she follow-up with her GI provider and she will be discharged home in stable condition. She is comfortable with plan. I have personally performed a face to face assessment of the patient and have reviewed the SAMUEL Note. I performed a substantive portion of the visit including all aspects of the following. My lopez findings include: History is 47-year-old female states that for the past year she has had streaks of blood with bowel movements. She deals with chronic constipation. She was scheduled for colonoscopy/EGD with Dr. Garrison. This was put on hold for clearance issues due to her history of complete heart block/pacemaker. Patient states that recently she has been feeling a fullness in the rectum. She states that today she fell at that there was some tissue hanging out of her rectum after bowel movement. Exam is: There is an external hemorrhoid slightly purpleish with evidence of recent anal fissure nearby. It is nontender nonthrombosed. The abdomen is soft and nontender. I am not seeing any obvious rectal prolapse. Medical Decison Making physician assistant news director did the initial exam. Reports a prolapsed hemorrhoid. This was easily reduced. In discussion with the PA this does not sound like a rectal prolapse. We obtained a two-view abdominal x-ray which does not show any large fecal impaction and nonobstructive pattern. Patient is very anxious and took Ativan prior to arrival. She states that this is chronic for her. She does not wish to take any medications like stool softeners as it worsens her anxiety. Patient is due for a well woman exam and advised her to mention her concerns for rectocele and cystocele to gynecology for that examination. She is to follow-up with surgery as scheduled. Patient is comfortable with this plan. Radiography X-Ray: Read by ED Physician Diagnostic Testing: Clinical Impression(s) from Imaging Studies KUB X-Ray 07/18/23 17:31 IMPRESSION: Non-obstructive bowel gas pattern. Electronically Signed: Jamison Bardales MD at 17:46 EDT , <Dr. Corey Adorno, DO - Last Filed: 07/18/23 23:27> [facility] Narrative Medical decision making narrative: I have personally performed a face to face assessment of the patient and have reviewed the SAMUEL Note. I performed a substantive portion of the visit including all aspects of the following. My lopez findings include: History is 47-year-old female states that for the past year she has had streaks of blood with bowel movements. She deals with chronic constipation. She was scheduled for colonoscopy/EGD with Dr. Garrison. This was put on hold for clearance issues due to her history of complete heart block/pacemaker. Patient states that recently she has been feeling a fullness in the rectum. She states that today she fell at that there was some tissue hanging out of her rectum after bowel movement. Exam is: There is an external hemorrhoid slightly purpleish with evidence of recent anal fissure nearby. It is nontender nonthrombosed. The abdomen is soft and nontender. I am not seeing any obvious rectal prolapse. Medical Decison Making physician assistant news director did the initial exam. Reports a prolapsed hemorrhoid. This was easily reduced. In discussion with the PA this does not sound like a rectal prolapse. We obtained a two-view abdominal x-ray which does not show any large fecal impaction and nonobstructive pattern. Patient is very anxious and took Ativan prior to arrival. She states that this is chronic for her. She does not wish to take any medications like stool softeners as it worsens her anxiety. Patient is due for a well woman exam and advised her to mention her concerns for rectocele and cystocele to gynecology for that examination. She is to follow-up with surgery as scheduled. Patient is comfortable with this plan. Radiography Diagnostic Testing: Clinical Impression(s) from Imaging Studies KUB X-Ray 07/18/23 17:31 IMPRESSION: Non-obstructive bowel gas pattern. Electronically Signed: Jamison Bardales MD at 17:46 EDT Reading Location ID and State: [facility] [place] / MD , Service support , Discharge Plan Triage Chief Complaint: GI Bleed ED Midlevel Provider: Gianna Hylton ED Provider: Corey Adorno Dx/Rx/DC Orders Clinical Impression: Acute hemorrhoid, Gastroesophageal reflux disease, Constipation Instructions: ED Constipation (Adult), ED GERD (Adult), ED Hemorrhoids Prescriptions: No Action ondansetron [ondansetron] 4 MG tablet 4 mg PO Q8H PRN PRN (Reason: Nausea) Qty: 10 0RF lorazepam 0.5 mg tablet 0.5 mg PO DAILY PRN PRN (Reason: Anxiety) Primary Care Provider: Mihir Glover Referrals: Mihir Glover MD [Primary Care Provider] - 3-5 Days Activity Restrictions/Additional Instructions: You can continue to take [id number] Tums/Pepcid for your reflux. Please begin adding more fiber to your diet to help with the constipation. You can try Preparation H to help with your hemorrhoid discomfort. Disposition Disposition: Home, Self Care Discharge Date/Time: 07/18/23 18:08
--- NOTE | 2023-07-18 17:31 | RAD_ITS ---
EXAM: XR ABDOMEN, 1 VIEW CLINICAL INDICATION: constipation TECHNIQUE: Frontal supine view of the abdomen/pelvis. COMPARISON: No relevant prior studies available. FINDINGS: LOWER THORAX: No acute pathology. GASTROINTESTINAL TRACT: Unremarkable. Non-obstructive. No bowel or stomach distention. ORGANS: Unremarkable as visualized. No organomegaly. No abnormal calcifications. BONES/JOINTS: No acute pathology. SOFT TISSUES: No acute pathology. RAD/Abdomen Single View IMPRESSION: Non-obstructive bowel gas pattern. Electronically Signed: Jamison Bardales MD at 17:46 EDT ,
[2023-07-18 18:06] VITALS: BP 123/81; PULSE 74; RESP 16; TEMP 36.4; O2SAT 97
== END 2023-07-18 18:08 | disposition home or self-care (01) ==
PROVIDERS: Emergency Provider Emergency Medicine; PCP Internal Medicine; Visit Provider Emergency Medicine
DX: K64.9 Unspecified hemorrhoids (principal); K21.9 Gastro-esophageal reflux disease without esophagitis; K59.00 Constipation, unspecified; F17.210 Nicotine dependence, cigarettes, uncomplicated; G47.30 Sleep apnea, unspecified; Z95.810 Presence of automatic (implantable) cardiac defibrillator
CPT/HCPCS: 74018; 99282

== ENCOUNTER 2024-02-08 13:37 | Emergency (ER) | payer MEDICAID, SELFPAY ==
[2024-02-08 13:38] VITALS: BP 138/78; PULSE 67; RESP 14; TEMP 35.7; O2SAT 99
--- NOTE | 2024-02-08 13:52 | ED.VIS.BACK ---
HPI History of Present Illness Chief Complaint: Back Informant: patient Onset/Context/Timing Onset: Days (2) Context: Sudden Onset Injury: fall Timing: Continuous Quality: Sharp and Burning Location: Lumbar Worsened by: improves with Movement Relieved by: Nothing Associated Symptoms Associated Symptoms: Radiation to Right Leg and Radiation to Left Leg; Negative for Numbness, Tingling, Fever, Abdominal Pain, Dysuria, Unable to Ambulate, Unable to Transfer, Urinary Retention, Urinary Incontinence, Constipation or Fecal Incontinence Narrative Narrative: Patient presents with low back pain that began after a fall 2 days ago. Patient states she fell on some steps. Patient states she landed on her left hip and buttock area. Patient states her pain radiates down both lower extremities. Patient denies any bowel or bladder changes. Patient denies any saddle anesthesia. Patient denies any paresthesias or weakness. Patient states her pain is sharp and burning. Patient states it is worse with movement. Patient denies any other injuries. [facility] Medical History (Updated 02/08/24 @ 15:[address] Justin Olson, DO) Wears glasses Wears dentures Marijuana use Easy bruising Restless legs Migraine headache Heartburn Former smoker Sleep apnea History of edema History of echocardiogram Cardiology follow-up encounter History of pacemaker Iron deficiency anemia PTSD (post-traumatic stress disorder) Deliberate self-cutting Bulimia Panic anxiety syndrome History of complete heart block Home Medications ?Medication ?Instructions ?Recorded ?Last Taken ?Type ondansetron 4 mg disintegrating 4 mg PO Q8H PRN PRN Nausea #10 tabs 03/19/21 Unknown Rx tablet lorazepam 0.5 mg tablet 0.5 mg PO DAILY PRN PRN Anxiety 01/30/22 02/05/22 History hydrocodone-acetaminophen 5-325mg 1 tab PO Q6H PRN PRN Pain 3 days 02/08/24 Unknown Rx 5mg-325mg #10 TABLETS Allergy/AdvReac Type Severity Reaction Status Date / Time sertraline (From Zoloft) Allergy Mild Other Verified 02/08/24 13:37 tramadol Allergy Nausea Verified 02/08/24 13:37 Antihistamines - AdvReac Other Verified 02/08/24 13:37 Ethylenediamine naproxen AdvReac Other Verified 02/08/24 13:37 paroxetine HCl (From Paxil) AdvReac Other Verified 02/08/24 13:37 Family History Other Cardiac defibrillator in place Surgical History (Updated 02/08/24 @ 14:[address] Justin Olson DO) Hx of section History of endometrial ablation History of cardiac catheterization History of implantable cardiac defibrillator (ICD) Social History Smoking Status: Unknown if ever smoked ROS ROS ED Constitutional Constitutional ED: Denies chills or fever(s) Eyes Eyes: Denies blurry vision or change in vision ENT ENT ED: Denies rhinorrhea or sore throat Cardiovascular Cardiovascular: Denies chest pain or palpitations Respiratory/Chest Respiratory/Chest: Denies cough or dyspnea Gastrointestinal Gastrointestinal: Denies nausea or vomiting Genitourinary Genitourinary ED: Reports urinary frequency; Denies dysuria or hematuria Musculoskeletal Musculoskeletal: Reports back pain and neck pain Integumentary Denies abscess or rash Neurologic Neurologic: Reports headache(s); Denies weakness Allergic/Immunologic Allergic/Immunologic ED: Denies mouth swelling or urticaria EXAM Physical Exam Const Vital Signs: 02/08/24 13:38 Temperature 96.3 F L Temperature Source Temporal Pulse Rate 67 Respiratory Rate 14 Blood Pressure 138/78 H Blood Pressure Mean 98 Pulse Ox 99 Oxygen Delivery Method Room Air Positive well nourished and well developed General Appearance ED: well developed and NAD HEENT Reports moist mucous membranes Neck supple and no JVD Back/Spine Back/Spine Narrative: There is mild tenderness over the lumbar paraspinal muscles. There is no bony crepitance or step-off noted. Range of motion was limited in all motions of the lumbar spine secondary to pain. Strength is 5/5 bilaterally in the lower extremities. There are no sensory deficits noted. Deep tendon reflexes are 2/4 bilaterally in the lower extremities. Straight leg raises were negative bilaterally. Lumbar Spine / Lower Back: ROM limited and straight leg raise negative bilaterally Extremity normal to inspection General Extremety ED: Negative for edema or tenderness General Extremity: Negative for edema Neuro oriented x3 and no sensory deficits noted Sensorium / Orientation: alert Motor Exam: strength 5/5 throughout Deep Tendon Reflexes: Rt Patellar (L4): 2+, Lt Patellar (L4): 2+, Rt Ankle (S1): 2+ and Lt Ankle (S1): 2+ Deep Tendon Reflexes Back: Rt Patellar (L4): 2+, Lt Patellar (L4): 2+, Rt Ankle (S1): 2+ and Lt Ankle (S1): 2+ Psych mental status grossly normal MDM MDM MDM Narrative Medical decision making narrative: Differential diagnosis includes lumbar compression fracture, spondylolisthesis, sciatica, and lumbosacral strain. X-rays of the lumbar spine will be obtained to assess for lumbar compression fracture and spondylolisthesis. Radiography Diagnostic Testing: Clinical Impression(s) from Imaging Studies Lumbar Spine X-Ray 02/08/24 14:05 IMPRESSION: Degenerative changes of the spine, as detailed above. Electronically Signed: Fletcher Yanez MD at 14:18 EDT , X-rays of the lumbar spine were obtained. There are 3 views. On my independent interpretation, there is no acute fracture or spondylolisthesis. There are some degenerative changes noted. Radiologist also interpreted the x-rays and agrees. Treatment and Re-Evaluation Narrative: Patient was ordered a dose of [place] here. Patient states she is sensitive to opiate pain medication and did not want to take it since she has to drive herself home. Patient was given a prescription for a short course of [place]. Patient was instructed to use ice to the area. Patient was instructed to follow-up with her primary care physician in 5 to 7 days. Patient was instructed return if worse in any way. Patient understood and was agreeable with the plan. All questions were answered. Discharge Plan Triage Chief Complaint: Back ED Provider: Justin Olson Dx/Rx/DC Orders Clinical Impression: Acute lumbosacral myofascial strain, Fall Instructions: ED Back Sprain/Strain Prescriptions: New hydrocodone-acetaminophen 5-325 mg tablet 1 tab PO Q6H PRN PRN (Reason: Pain) 3 Days Qty: 10 0RF No Action ondansetron [ondansetron] 4 MG tablet 4 mg PO Q8H PRN PRN (Reason: Nausea) Qty: 10 0RF lorazepam 0.5 mg tablet 0.5 mg PO DAILY PRN PRN (Reason: Anxiety) Primary Care Provider: Mihir Glover Referrals: Mihir Glover MD [Primary Care Provider] - 5-7 Days Print Language: Cuban Disposition Disposition: Home, Self Care
--- NOTE | 2024-02-08 14:04 | ED.RN ---
PATIENT REFUSED NORCO DUE TO HAVING 1,000MG TYLENOL AN HOUR AGO. NOTIFIED.
--- NOTE | 2024-02-08 14:05 | RAD_ITS ---
STUDY: X-RAY - LUMBAR SPINE REASON FOR EXAM: Female, 48 years old. Injury/Pain TECHNIQUE: 3 view(s) of the lumbar spine were obtained. COMPARISON: None FINDINGS: There is straightening of the normal lumbar lordosis. There is no substantial scoliosis. There is a normal alignment of the vertebrae. This space narrowing and spondylosis at the L4-L5 and L5-S1 levels. This is worse at the L5-S1 level. The soft tissue structures are unremarkable. RAD/Lumbar Spine 2 or 3 Views IMPRESSION: Degenerative changes of the spine, as detailed above. Electronically Signed: Fletcher Yanez MD at 14:18 EDT ,
[2024-02-08 15:48] VITALS: BP 121/72; PULSE 68; RESP 17; TEMP 36.3; O2SAT 97; BMI 34.3
== END 2024-02-08 15:50 | disposition home or self-care (01) ==
PROVIDERS: Emergency Provider Emergency Medicine; PCP Internal Medicine; Visit Provider Emergency Medicine
DX: S39.012A Strain of muscle, fascia and tendon of lower back, initial encounter (principal); W19.XXXA Unspecified fall, initial encounter; Z95.810 Presence of automatic (implantable) cardiac defibrillator
CPT/HCPCS: 72100; 99282

== ENCOUNTER 2025-01-20 00:28 | Emergency (ER) | payer MEDICAID, SELFPAY ==
[2025-01-20] VITALS (8 sets, daily range): BP systolic 96–123; BP diastolic 65–80; PULSE 86–99; RESP 16–19; TEMP 36.6–37; O2SAT 95–99; BMI 33.5
--- NOTE | 2025-01-20 00:57 | CT_ITS ---
PROCEDURE: CTA CHEST W/WO CONTRAST 01/20/2025 REASON FOR EXAM: HX RECENT MITRAL VALVE REPLACEMENT, PE TECHNIQUE: Procedure Code: [id number] Modality: CT Procedure: CTA CHEST W/WO CONTRAST Multiplanar Sagittal and Coronal images were obtained. CONTRAST: Isovue 370 VOLUME: 100 mL One or more dose reduction techniques were used (e.g., Automated exposure control, adjustment of the mA and/or kV according to patient size, use of iterative reconstruction technique). RADIATION DOSE SUMMARY: CTDlvol: 15.82 mGy DLP: 486 mGycm COMPARISON: Chest radiograph on 01/20/2025. CT scan of the chest on 05/28/2021. FINDINGS: Prior CABG. Multinodular thyroid goiter without tracheal narrowing or deviation. 8 mm calcified nodule in the right thyroid lobe. Moderate bilateral pleural effusions. Passive atelectatic airspace disease/consolidations of the lower lobes. AICD is in good position. Mild emphysema. Mild diffuse spondylosis. Normal enhancement of the main pulmonary artery and right and left pulmonary arteries. Normal enhancement of the bilateral peripheral pulmonary arteries. There is no demonstrated pulmonary embolism. Normal thoracic aorta and visualized great vessels. There is no demonstrated aortic dissection. Normal heart and pericardium. Normal mediastinum. Normal hilar regions. Normal visualized trachea and bronchi. CT/CTA Chest W/WO Contrast IMPRESSION: Prior CABG. Multinodular thyroid goiter without tracheal narrowing or deviation. 8 mm calcified nodule in the right thyroid lobe. Moderate bilateral pleural effusions. Passive atelectatic airspace disease/consolidations of the lower lobes. AICD is in good position. Mild emphysema. Mild diffuse spondylosis. No CT evidence of pulmonary embolus or aortic dissection. Reading Location: [place] [id number]
--- NOTE | 2025-01-20 00:57 | EKG12_ITS ---
Test Reason : DYSRHYTHMIA Blood Pressure : */* mmHG Vent. Rate : 92 BPM Atrial Rate : 92 BPM P-R Int : 142 ms QRS Dur : 162 ms QT Int : 442 ms P-R-T Axes : 23 226 53 degrees QTcB Int : 546 ms Atrial-sensed ventricular-paced rhythm Biventricular pacemaker detected Abnormal ECG Confirmed by Alexis Alexander [id number]), manager editorial DIANA BREEN ([id number]) on 01/22/2025 1:13:09 PM Referred By: ISADORA Confirmed By: Alexis Alexander
--- NOTE | 2025-01-20 00:58 | RAD_ITS ---
PROCEDURE: CHEST PA AND LATERAL 01/20/2025 REASON FOR EXAM: CHEST PAIN TECHNIQUE: Procedure Code: RADCXR Modality: DX Procedure: CHEST PA AND LATERAL COMPARISON: 11/17/2021 FINDINGS: Hardware: EKG leads overlie the chest. Stable appearance of the left subclavian pacemaker Heart: There has been a remote CABG since the previous study Mediastinum: The mediastinal contour is unremarkable. Lungs: Lungs are expanded with superimposed bilateral pleural effusions and likely atelectasis. No organized infiltrate. Bones: Unremarkable RAD/Chest PA and Lateral IMPRESSION: Bilateral pleural effusions with bibasilar atelectasis, follow-up recommended t o ensure resolution Reading Location: [id number]
--- OUTSIDE RECORDS SUMMARY | 2025-01-20 01:06 | XMS RPT_ITS | CCD ---
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 Name Role Phone Mihir Glover MD Primary Care Provider Amalfitano DO, Mauricio L Unavailable Love Galvez Primary Care Provider Pcp, No Primary Care Provider Unavailabl e Pcp, No Primary Care Provider Unavailabl e Amalfitano DO, Mauricio L Unavailable Flores Chao MD Primary Care Provider Mihir Glover MD Primary Care Provider Amalfitano DO Mauricio L Unavailable Amalnader DO Mauricio L Unavailable Mihir Glover MD Primary Care Provider Amalfitano DO, Mauricio L Unavailable RAMÓN HUTCHISON Attending Unavailable MIHIR GLOVER Primary Care Unavailable DEIRDRE ASHLEY Referring Unavailable SWAPNA MANN Primary Care Unavailable SWAPNA MANN Attending Unavailable MIHIR GLOVER Consulting Unavailable JOHNATHAN, SWAPNA Susy Admitting Unavailable PROVIDER, UNKNOWN Consulting Unavailable SWAPNA MANN Primary Care Unavailable SWAPNA MANN Attending Unavailable MIHIR GLOVER Consulting Unavailable SWAPNA MANN Admitting Unavailable PROVIDER, UNKNOWN Consulting Unavailable HAYDE ZELAYA, DR MEDEL Primary Care Physician HAYDE ZELAYA, DR MEDEL Primary Care Unavailmeche DEJESUS PUTTY REMOVER-GASOLINE TESTERKIM Attending Unavailab le Unavailable Primary Care Provider UnavailFREDRICK Giles MD Consulting Unavailable HAYDE ZELAYA, DR MEDEL Primary Care Unavailmeche BALBUENA MD, LIO Attending Unavailable KIM DEJESUS Referring Unavailable MIGUEL ZELAYA, RYAN ROBERSON Attending Unavailable HAYDE ZELAYA, DR MEDEL Primary Care Unavailmeche MANN MD, SWAPNA Jain Attending Unavailable JOHNATHAN ZELAYA, SWAPNA Jain Consulting Unavailable HAYDE ZELAYA, DR MEDEL Primary Care Unavailmeche fajardo Generic Provider , No Assigned Pcp Primary Car e Provider Unavailable Gordon Armstrong MD Unavailable Lio Balbuena MD [place] Unavailable Unavailable Mihir Glover MD Primary Care Provider Gordon Armstrong MD Unavailable Esha ZELAYA, Lio Totarik Unavailable Unavailable Mihir Glover MD Primary Care Provider GORDON ARMSTRONG Referring Unavailable GORDON ARMSTRONG Admitting Unavailable GORDON ARMSTRONG Attending Unavailable GENERIC PROVIDER, NO ASSIGNED PCP Primary Care Unavailable GENERIC PROVIDER, NO ASSIGNED PCP Primary Care Unavailable GORDON ARMSTRONG Referring Unavailable GENERIC PROVIDER, NO ASSIGNED PCP Primary Care Unavailable GORDON ARMSTRONG Attending Unavailable GENERIC PROVIDER, NO ASSIGNED PCP Primary Care Unavailable TEE HERNANDEZ Referring Unavailable MIHIR GLOVER Primary Care Unavailable MIHIR GLOVER Attending Unavailable MIHIR GLOVER Primary Care Unavailable GILL KNIGHT Attending Unavailable MIHIR GLOVER Primary Care Unavailable Mihir Glover Primary Care Unavailable Justin Olson Attending Unavailable MELVIN, PIETERIMSEE Referring Unavailable Mihir Glover Primary Care Unavailable ARMANDO CHARLES Attending Unavailable Allergies Allergy Classification Reported Allergen(s) Allergy Type Date of Onset Reaction(s) Facility (11 sources) Ethylenediamine derivative antihistamine; Translations: [ANTIHISTAMINES - ETHYLENEDIAMINE] Propensity to adverse reactions 10-25-19 Other [facility] (20 sources) Naproxen; Translations: [NAPROXEN] Drug Allergy 01-28-20 05 Other [facility] (6 sources) PARoxetine; Translations: [paroxetine HCl] Drug Allergy 10-25-19 Other [facility] (5 sources) traMADol Drug Allergy 10-25-19 Nausea [facility] (20 sources) Latex; Translations: [LATEX] Propensity to adverse reactions 08-25-19 07 [facility] Work Phone: (20 sources) Lisinopril; Translations: [LISINOPRIL] Drug Allergy 10-11-19 13 Other: See Comments, Other, Unknown [facility] Work Phone: (20 sources) PARoxetine; Translations: [PAROXETINE] Drug Allergy 01-28-20 05 Unknown [facility] (20 sources) Adhesive Tape-Silicones; Translations: [ADHESIVE TAPE-SILICONES] Propensity to adverse reactions 08-25-19 07 Hives [facility] Work Phone: (20 sources) diphenhydrAMINE; Translations: [DIPHENHYDRAMINE] Drug Allergy 12-05-19 22 Other: See Comments, Other [facility] (8 sources) Sertraline; Translations: [SERTRALINE] Drug Allergy 04-15-20 23 Palpitations [facility] (9 sources) Morphine; Translations: [MORPHINE] Drug Allergy 08-09-19 24 Hives, Itching [facility] (2 sources) Serotonin; Translations: [SEROTONIN] Drug Allergy 12-12-19 23 [facility] (1 source) Lisinopril Drug Allergy [facility] (1 source) Naproxen Drug Allergy [facility] (1 source) Naproxen Drug Allergy [facility] (1 source) PARoxetine Drug Allergy [facility] (1 source) Sertraline Drug Allergy [facility] (3 sources) Adhesive Tape Drug allergy [facility] (10 sources) topiramate; Translations: [topiramate] Drug Allergy 12-26-19 25 Palpitations [facility] [place] (1 source) ALLERGIES NOT ON FILE; Translations: [ALLERGIES NOT ON FILE] Propensity to adverse reactions (disorder) [facility] (1 source) Naproxen Drug Allergy 02-08-20 24 [facility] (1 source) Sertraline Drug Allergy 02-08-20 24 [facility] (1 source) traMADol Drug Allergy 02-08-20 24 [facility] (1 source) Antihistamines - Ethylenediamine Drug allergy (disorder) 02-08-20 [facility] Medications Current Medications Medication Drug Class(es) Dates Sig (Normalized) Sig (Original) acetaminophen 325 mg oral tablet (4 sources) Start: 01-14-2025 End: 01-24-2025 take 3 tablets by mouth every six hours for pain acetaminophen (Tylenol) 325 mg tablet Indications: S/P MVR (mitral valve repair) Take 3 tablets (975 mg) by mouth every 6 hours if needed (for pain) for up to 10 days. 01/14/2025 01/24/2025 Active Start: 01-10-2025 take 1 tablet by mouth every e ight hours Start: 01-09-2025 End: 01-10-2025 take 975 mg by mouth every six hours aspirin 81 mg delayed release oral tablet (4 sources) Platelet Aggregation Inhibitor, Nonsteroidal Anti-inflammatory Drug Start: 01-11-2025 End: 01-15-2026 take 1 tablet by mouth once daily aspirin 81 mg EC tablet Indications: S/P MVR (mitral valve repair) Take 1 tablet (81 mg) by mouth once daily. 30 tablet 01/14/2025 11:00 AM EDT 01/15/2025 01/15/2026 Active Start: 01-09-2025 End: 01-10-2025 bisacodyl 10 mg rectal suppository (1 source) Stimulant Laxative Start: 01-10-2025 take 10 mg rectal route every twenty-four hours as needed calcium carbonate 500 mg chewable tablet (1 source) Start: 01-10-2025 diazePAM 2 mg oral tablet (3 sources) Benzodiazepine Start: 10-26-2019 take 2 mg by mouth three times daily as needed Diazepam Active 2 MG PO 3 TIMES DAILY NEEDED October 26, 2019 12:00am End: 11-05-2021 take 1 tablet by mouth every eight hours as needed diazePAM (VALIUM) 2 mg tablet Take 2 mg by mouth every 8 hours as needed. 0 11/05/2021 Discontinued Comment on above: Take 2 mg by mouth e very 8 hours as needed. docusate sodium 100 mg oral capsule (2 sources) Start: 01-14-2025 take 1 capsule by mouth twice daily as needed for constipation docusate sodium (Colace) 100 mg capsule Indications: S/P MVR (mitral valve repair) Take 1 capsule (100 mg) by mouth 2 times a day as needed for constipation. 60 capsule 01/14/2025 11:00 AM EDT 01/14/2025 Active docusate sodium 50 mg / sennosides, retirement 8.6 mg oral tablet (1 source) Start: 01-09-2025 Drug or medicament (substance) (3 sources) Start: 01-10-2025 Start: 01-09-2025 End: 01-09-2025 Start: 01-09-2025 End: 01-09-2025 ferrous sulfate 325 mg oral tablet (18 sources) Start: 12-04-2021 End: 01-03-2022 take 1 tablet by mouth three times daily at mealtime ferrous sulfate 325 mg (65 mg iron) tablet Take 1 tablet by mouth three times daily with meals. 90 tablet 4 12/04/2021 01/03/2022 Active Start: 10-24-2021 take 324 mg by mouth three times daily Ferrous Sulfate Active 324 MG PO THREE TIMES A DAY 90 October 24, 2021 12:00am take 1 tablet by liana th once daily at breakfast ferrous sulfate 325 mg (65 mg iron) tablet Take 325 mg by mouth daily with breakfast. 0 Active Comment on above: Take 325 mg by mouth daily with breakfast. Take 1 tablet by liana th three times daily with meals. furosemide 20 mg oral tablet (6 sources) Loop Diuretic Start: 01-14-2025 End: 01-19-2025 take 1 tablet by mouth once daily furosemide (Lasix) 20 mg tablet Indications: S/P MVR (mitral valve repair) Take 1 tablet (20 mg) by mouth once daily for 5 days. 5 tablet 01/14/2025 11:00 AM EDT 01/14/2025 01/19/2025 Active Start: 01-10-2025 End: 01-14-2025 1 ml heparin sodium, porcine 5000 unt/ml injection (1 source) Unfractionated Heparin, Anti-coagulant Start: 01-10-2025 inject 5000 [IU] by subcutaneous injection every eight hours ibuprofen 800 mg oral tablet (3 sources) Nonsteroidal Anti-inflammatory Drug Start: 10-02-2020 take 800 mg by mouth every eight hours Ibuprofen Active 800 MG PO Q8H October 02, 2020 12:00am End: 12-01-2018 take 1 tablet by mouth every six hours as needed Ibuprofen 100 mg tablet Take 100 mg by mouth every 6 hours as needed. 0 12/01/2018 Discontinued (Course of therapy completed) Comment on above: Take 100 mg by mouth every 6 hours as needed. metoprolol tartrate 25 mg oral tablet (3 sources) beta-Adrenergic Luis Start: 5 End: 6 take 0.5 tablet by mouth twice daily metoprolol tartrate (Lopressor) 25 mg tablet Indications: S/P MVR (mitral valve repair) Take 0.5 tablets (12.5 mg) by mouth 2 times a day. 30 tablet 01/14/2025 11:00 AM EDT 01/14/2025 01/14/2026 Active multivitamin with minerals tablet (1 source) Start: 5 End: 6 take 1 tablet by mouth once daily multivitamin with minerals tablet Indications: S/P MVR (mitral valve repair) Take 1 tablet by mouth once daily. 01/15/2025 01/15/2026 Active Naloxone (1 source) Opioid Antagonist Start: ondansetron 4 mg oral tablet (20 sources) Serotonin-3 Receptor Antagonist Start: 2 take 4 mg by mouth every six hours Ondansetron Hcl Active 4 MG PO EVERY 6 HOURS October 24, 2021 12:00am Start: 03-19-2021 take 4 mg by mouth e very eight hours as needed Ondansetron Active 4 MG PO EVERY 8 HOURS NEEDED March 19, 2021 1:00am Comment on above: Take 4 mg by mouth e very 8 hours as needed for nausea/vomiting. polyethylene glycol 3350 [id number] mg powder for oral solution (3 sources) Osmotic Laxative Start: 01-09-2025 polyethylene glycol (Glycolax, Miralax) 17 gram packet Indications: S/P MVR (mitral valve repair) Take 17 g by mouth once daily as needed (constipation). 01/14/2025 Active polysaccharide iron complex 150 mg oral capsule (1 source) Start: 01-11-2025 (2 sources) Start: 01-15-2025 End: 01-15-2026 Start: 01-11-2025 (1 source) Start: 01-09-2025 take 4 mg by mouth every eight hours as needed [Order 1 Start] Name: ondansetron (Zofran) tablet 4 mg Signed Summary: 4 mg, oral, Every 8 hours PRN, nausea/vomiting, first line, Starting on Wed01/09/25 at 1232, 1st Line. Use oral route first, if possible. If inadequate response within 60 minutes, proceed to next-line agent for same PRN reason or contact provider if no further options ordered. [Order 1 End] [Order 2 Start] Name: ondansetron (Zofran) injection 4 mg Signed Summary: 4 mg, intravenous, Every 8 hours PRN, nausea/vomiting, first line, Starting on Wed01/09/25 at 1232, 1st Line. Give IV if patient is unable to take orally. If inadequate response within 60 minutes, proceed to next-line agent for same PRN reason or contact provider if no further options ordered. When administering via IV Push, administer over 3-5 minutes. [Order 2 End] Completed/Discontinued Medications Medication Drug Class(es) Dates Sig [...] 07/03/2011 12/01/2018 Discontinued (Course of therapy completed) Comment on above: Inhale 2 Puffs as in structed every 4 hours as needed (wheezing, SOB). calcium chloride 0.0014 meq/ml / potassium chloride 0.004 meq/ml / sodium chloride 0.103 meq/ml / sodium lactate 0.028 meq/ml injectable solution (1 source) Start: 01-09-2025 End: 01-10-2025 100 ml calcium gluconate 20 mg/ml injection (1 source) Start: 01-09-2025 End: 01-10-2025 take 2 g intravenously every six hours as needed ceFAZolin 2000 mg injection (1 source) Cephalosporin Antibacterial Start: 01-09-2025 End: 01-11-2025 take 2 g intravenously every eight hours chlorhexidine gluconate 40 mg/ml medicated liquid soap (8 sources) Start: 12-25-2024 End: 01-14-2025 Start: 12-25-2024 End: 01-14-2025 Start: 12-25-2024 chlorhexidine (Hibiclens) 4 % external liquid Indications: Mitral valve insufficiency, unspecified etiology Use as directed daily perioperatively 473 mL 12/25/2024 Suspended Start: 12-25-2024 chlorhexidine (Peridex) 0.12 % solution Indications: Mitral valve insufficiency, unspecified etiology Swish and spit with 15ml of solution the night before and morning of surgery. Do not swallow. 120 mL 12/25/2024 Suspended 100 ml dexmedetomidine 0.004 mg/ml injection (1 source) Central alpha-2 Adrenergic Agonist Start: 01-09-2025 End: 01-09-2025 1 ml HYDROmorphone hydrochloride 1 mg/ml cartridge (1 source) Opioid Agonist Start: 01-09-2025 End: 01-10-2025 insulin lispro 100 unt/ml injectable solution (2 sources) Insulin Analog Start: 01-09-2025 End: 01-13-2025 10 ml iron sucrose 20 mg/ml injection (11 sources) Parenteral Iron Replacement Start: 11-20-2021 End: 12-29-2021 iron sucrose (VENOFER) 200 mg iron/10 mL soln injection Indications: Iron deficiency anemia due to chronic blood loss , Intestinal malabsorption, unspecified type Inject 10 mL intravenously as directed for 4 doses. Please administer Venofer 200 mg IV per protocol x 4 dose(s). Total dose 800 mg. May be given every other day. OK for IV access. OK to use standard hypersensitivity orders per protocol. 10 mL 3 11/20/2021 12/29/2021 Discontinued Comment on above: Inject 10 mL intrave nously as directed for 4 doses. Please administer Venofer 200 mg IV per protocol x 4 dose(s). Total dose 800 mg. May be given every other day. OK for IV access. OK to use standard hypersensitivity orders per protocol. LORazepam 0.5 mg oral tablet (20 sources) Benzodiazepine Start: 01-30-2022 End: 09-04-2025 take 1 tablet by liana th every six hours as needed LORazepam (Ativan) 0.5 mg tablet Take 1 tablet (0.5 mg) by mouth every 6 hours if needed. Active take 0.5 mg by mouth every twelve hours as needed LORazepam (ATIVAN) 0.5 mg Take 0.5 mg by mouth twice daily as needed. 0 Active Comment on above: Take 0.5 mg by mouth twice daily as needed. methocarbamol 500 mg oral tablet (3 sources) Muscle Relaxant Start: 5 End: 5 take 500 mg by mouth every six hours norethindrone acetate 5 mg oral tablet (20 sources) Start: 2 take 1 tablet by mouth once daily norethindrone (AYGESTIN) 5 mg tablet Take 1 tablet by mouth once daily. 30 tablet 5 11/05/2021 Active Start: 10-24-2021 take 1 tablet by liana th twice daily Norethindrone Acetate (Aygestin) 5 mg tablet Active 5 MG PO THREE TIMES A DAY October 24, 2021 12:00am Reduce to twice a day if the bleeding stops. Comment on above: Take 1 tablet by liana th once daily. oxyCODONE hydrochloride 10 mg oral tablet (2 sources) Opioid Agonist Start: 01-09-2025 End: 01-13-2025 take 1 tablet by mouth every four hours as needed Start: 01-09-2025 End: 01-13-2025 take 1 tablet by mouth every four hours as needed pantoprazole 40 mg delayed r elease oral tablet (1 source) Proton Pump Inhibitor Start: 01-10-2025 End: 01-10-2025 microencapsulated potassium chloride 20 meq extended release oral tablet (2 sources) Start: 01-13-2025 End: 01-13-2025 Start: 01-11-2025 End: 01-11-2025 10 ml propofol 10 mg/ml inje ction (1 source) General Anesthetic Start: 01-09-2025 End: 01-09-2025 125 ml sodium chloride 9 mg/ ml prefilled syringe (20 sources) Start: 01-09-2025 End: 01-10-2025 Start: 11-20-2021 End: 05-19-2022 NaCl (PF) 0.9% 10-20 mL inje ction SUMAtriptan 100 mg oral tablet (1 source) Serotonin-1b and Serotonin-1d Receptor Agonist Start: 10-30-2022 take 1 tablet by mouth every two hours as needed, then take 2 tablets by mouth every twenty-four hours as needed SUMAtriptan (IMITREX) 100 mg tablet Indications: Migraine with aura and without status migrainosus, not intractable Take 1 tablet by mouth as needed when migraine starts. May repeat in 2 hours if headache continues or returns. Do not exceed 2 tablets in 24 hours. 9 tablet 0 10/30/2022 Active Comment on above: Take 1 tablet by liana th as needed when migraine starts. May repeat in 2 hours if headache continues or returns. Do not exceed 2 tablets in 24 hours. (1 source) Start: 01-13-2025 End: 01-13-2025 (1 source) Start: 01-12-2025 End: 01-12-2025 Problems Active Problems Problem Classification Problem Date Documented Da te Episodic/Chronic Anxiety disorders (20 sources) Anxiety; Translations: [Panic disorder] Onset: 5 Resolved: 5 07-18-2019 Chronic Asthma (20 sources) Asthma; Translations: [Unspecified asthma, uncomplicated] Onset: 5 02-19-2016 Chronic Conditions associated with dizziness or vertigo (20 sources) Benign paroxysmal positional vertigo; Translations: [Benign paroxysmal vertigo, unspecified ear] Onset: 5 Resolved: 5 03-27-2021 Episodic Conduction disorders (20 sources) Automatic implantable cardiac defibrillator in situ; Translations: [Presence of automatic (implantable) cardiac defibrillator] Onset: 0 03-26-2021 Chronic Comment on above: patient has heart bl ock diagnosed as a child, had a pacemaker placed that she has had for many years for this. 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 Deficiency and other anemia (1 source) Anemia, unspecified; Translations: [Postoperative anemia] Onset: 5 Episodic Esophageal disorders (6 sources) Gastroesophageal reflux disease; Translations: [Gastro-esophageal reflux disease without esophagitis] Onset: 4 07-18-2023 Chronic Gastritis and duodenitis (4 sources) Chronic gastritis; Translations: [Unspecified chronic gastritis without bleeding] Onset: 4 Resolved: 5 01-02-2025 Chronic Heart valve disorders (20 sources) Mitral valve regurgitation; Translations: [Tricuspid valve lesion] Onset: 5 Resolved: 5 02-11-2021 Chronic Mood disorders (20 sources) Bipolar disorder; Translations: [Bipolar disorder, unspecified] Onset: 9 12-01-2018 Chronic Other gastrointestinal disorders (1 source) Intestinal malabsorption; Translations: [Intestinal malabsorption, unspecified] Chronic Other gastrointestinal disorders (1 source) Constipation, unspecified; Translations: [Constipation, unspecified constipation type] Onset: 4 Episodic Other lower respiratory disease (5 sources) Dyspnea; Translations: [Dyspnea, unspecified] 06-05-2021 Episodic Other lower respiratory disease (12 sources) Dyspnea on exertion; Translations: [Other forms of dyspnea] Onset: 5 11-25-2021 Episodic Comment on above: NYHA functional clas s II. We will continue to monitor this closely Other screening for suspected conditions (not mental disorders or infectious disease) (3 sources) Patient encounter status; Translations: [Encounter for screening for malignant neoplasm of colon] Onset: 4 Episodic Milena-; endo-; and myocarditis; cardiomyopathy (except that caused by tuberculosis or sexually transmitted disease) (20 sources) Primary cardiomyopathy; Translations: [Cardiomyopathy, unspecified] Onset: 6 Resolved: 5 02-19-2016 Chronic Comment on above: 11/29/2017: TTE: LVEF 50%, left ventricle size upper limits of normal. Mild to moderate posterior directly MR. Mild TR and MT. RVSP 21 mmHg. Residual codes; unclassified (20 sources) Periodic limb movement disorder; Translations: [Periodic limb movement disorder] Onset: 1 08-23-2020 Chronic Residual codes; unclassified (5 sources) History of repair of mitral valve; Translations: [Other specified postprocedural states] 01-14-2025 Episodic Residual codes; unclassified (1 source) Other specified postprocedural states; Translations: [S/P MVR (mitral valve repair)] Onset: 5 Episodic Screening and history of mental health and substance abuse codes (8 sources) H/O: anxiety state; Translations: [Personal history of other mental and behavioral disorders] Onset: 5 Resolved: 5 04-15-2023 Episodic Unclassified (1 source) Low back pain, unspecified; Translations: [Low back pain, unspecified] Onset: 4 Past or Other Problems Problem Classification Problem Date Documented Da te Episodic/Chronic Cardiac and circulatory congenital anomalies (20 sources) Congenital complete atrioventricular heart block; Translations: [Congenital heart block] Onset: 6 Resolved: 5 12-01-2018 Chronic Comment on above: Resolved status post dual-chamber ICD placement. Cardiac dysrhythmias (8 sources) Multiple premature ventricular complexes; Translations: [Ventricular premature depolarization] Onset: 5 Resolved: 5 03-25-2023 Chronic Cardiac dysrhythmias (8 sources) Palpitations; Translations: [Palpitations] Onset: 5 Resolved: 5 03-25-2023 Episodic Deficiency and other anemia (9 sources) Anemia; Translations: [Anemia, unspecified] Onset: 5 Resolved: 5 11-25-2021 Episodic Endometriosis (20 sources) Uterine adenomyosis; Translations: [Endometriosis of uterus] Onset: 2 Resolved: 5 Chronic Gastrointestinal hemorrhage (6 sources) Hematochezia; Translations: [Melena] Onset: 4 Resolved: 5 Episodic Headache; including migraine (9 sources) Migraine with aura; Translations: [Migraine with aura, not intractable, without status migrainosus] Onset: 5 Resolved: 5 Chronic Hemorrhoids (5 sources) Hemorrhoids; Translations: [Unspecified hemorrhoids] Onset: 5 Resolved: 5 07-18-2023 Episodic Menstrual disorders (11 sources) Intermenstrual bleeding - irregular; Translations: [Excessive and frequent menstruation with irregular cycle] Onset: 5 Resolved: 5 Chronic Nonspecific chest pain (9 sources) Chest pain; Translations: [Chest pain, unspecified] Onset: 3 Resolved: 5 06-05-2021 Episodic Other and unspecified benign neoplasm (4 sources) Tubular adenoma of colon; Translations: [Benign neoplasm of colon, unspecified] Onset: 4 Resolved: 5 01-02-2025 Episodic Other female genital disorders (20 sources) Abnormal uterine bleeding; Translations: [Abnormal uterine and vaginal bleeding, unspecified] Onset: 2 Resolved: 5 Chronic Other gastrointestinal disorders (20 sources) Chronic constipation; Translations: [Other constipation] Onset: 6 02-19-2016 Episodic Other gastrointestinal disorders (10 sources) Constipation; Translations: [Constipation, unspecified] Onset: 6 Resolved: 5 Episodic Other gastrointestinal disorders (4 sources) History of gastrointestinal bleed; Translations: [Personal history of other diseases of the digestive system] Onset: 4 Resolved: 5 01-02-2025 Episodic Other nervous system disorders (6 sources) Sensation of being warm; Translations: [Other disturbances of skin sensation] Onset: 5 Resolved: 5 04-15-2023 Episodic Other nutritional; endocrine; and metabolic disorders (20 sources) Metabolic syndrome X; Translations: [Metabolic syndrome] Onset: 6 Resolved: 5 06-12-2005 Chronic Other nutritional; endocrine; and metabolic disorders (20 sources) Obese class I; Translations: [Obesity, unspecified] Onset: 1 Resolved: 5 08-21-2020 Chronic Other upper respiratory infections (7 sources) Acute pharyngitis; Translations: [Acute pharyngitis, unspecified] Onset: 5 Resolved: 5 06-16-2022 Episodic Residual codes; unclassified (8 sources) Sleep apnea; Translations: [Sleep apnea, unspecified] Onset: 5 Resolved: 5 09-21-2023 Chronic Residual codes; unclassified (4 sources) Periodic leg movements of sleep ; Translations: [Periodic limb movement disorder] Onset: 1 Resolved: 5 01-02-2025 Chronic Spondylosis; intervertebral disc disorders; other back problems (4 sources) Low back pain; Translations: [Low back pain, unspecified] Onset: 4 Resolved: 5 01-02-2025 Episodic Thyroid disorders (4 sources) Thyroid nodule; Translations: [Nontoxic single thyroid nodule] Onset: 3 Resolved: 5 01-02-2025 Chronic Unclassified (3 sources) Onset: 5 01-05-2025 Viral infection (9 sources) Disease caused by 2019-nCoV; Translations: [COVID-19] Onset: 5 Resolved: 5 05-28-2021 Episodic Results Test Name Value Interpretation Reference Range Facility [facility] 01-16-2025 CNOV Office Visit (INTMWS) MICHELL WOOTEN ([id number]) 1975 F Date Time Provider Department 01/16/25 11:40 AM MIHIR GLOVER INTMWS During your visit today, we recorded the following information about you: Temperature Pulse Respiration Blood pressure 97.9 degrees 72/minute 16/minute 104/62 Weight 99.9 kg Mihir Glover MD 01/16/2025 10:07 PM Signed Subjective Michell Wooten is a 49 year old adult with significant other. Patient presents with: Transition Of Care Transitional Care Management Progress Note The patients TCM visit was performed within the 7 days of discharge. Patient's Date of discharge: 01/14/25 Date of initial coordinator contact after discharge: NA Discharge diagnosis: s/p mitral valve repair. Medication review completed Yes Mihir Glover MD Provider Documentation: In follow-up of hospitalization, Michell Wooten is a 49 year old adult with the chief complaint of transition of care. I have reviewed the patient's last hospital course including diagnostic testing performed during this hospitalization, their discharge medications, and my assessment and plan with the patient and significant other present at today's visit. Michell had been following with [facility] for cardiomyopathy. She had been diagnosed with mitral regurgitation several years ago. She developed progressive dyspnea on exertion and was diagnosed with severe mitral regurgitation. She underwent mitral valve repair and was here for follow up. Postoperative pain was controlled. She had coughing from throat dryness and this caused some pain of her right rib. She denied unusual chest pain or dyspnea. She had an order for therapy which I assume is cardiac rehab. She was advised to have her labs (CBC, Renal panel, magnesium) rechecked in one week. Review of Systems Constitutional: Negative for fatigue and fever. HENT: Positive for sore throat. Negative for congestion and trouble swallowing. Respiratory: Positive for cough. Negative for chest tightness, shortness of breath and wheezing. Cardiovascular: Negative for chest pain, palpitations and leg swelling. Gastrointestinal: Negative for abdominal pain, constipation, diarrhea, nausea and vomiting. Genitourinary: Negative for difficulty urinating. Neurological: Negative for dizziness and headaches. ACTIVE PROBLEM LIST Asthma (Hcc) Primary Cardiomyopathy (Hcc) Dysmetabolic Syndrome X Congenital Third Degree Heart Block (Hcc) Constipation Icd (Implantable Cardioverter-Defibri llator) in Place Bipolar Affective Disorder (Hcc) Obesity, Class I, Bmi 30-34.9 Plmd (Periodic Limb Movement Disorder) Adenomyosis Thyroid Nodule Blood in Stool Gastroesophageal Reflux Disease Without Esophagitis Tubular Adenoma of Colon Chronic Gastritis Without Bleeding Severe Mitral Regurgitation S/P Mvr (Mitral Valve Repair) PAST SURGICAL HISTORY Procedure Laterality Date DELIVERY ONLY TIMES THREE DANDC, DIAG AND/OR THERAPEUTIC 02/05/2022 HYSTEROSCOPY ENDOMETRIAL ABLATION 02/05/2022 Marcella ablation ICD GENERATOR CHANGE 07/19/2020 [facility] IMPLANTABLE CARDIOVERTER DEFIBRILLATOR 05/10/2009 defib/pacer- [facility], Dr Hardy LEFT AND RIGHT HEART CATH 11/16/2024 LIG/TRNSXJ FLP TUBE ABDL/VAG APPR UNI/BI PERMANENT PACEMAKER INSERTION 01/09/1992 TRANSESOPHAGEAL ECHOCARDIOGRAM 10/31/2024 VALVULOPLASTY MITRAL VALVE W/CARDIAC BYPASS 01/09/2025 32mm Simuplus Band, Median Sternotomy, Ligation of RABIA, Posterior pericardiotomy Social History Tobacco Use Smoking status: Former Current packs/day: 0.00 Average packs/day: 2.0 packs/day for 15.0 years (30.0 ttl pk-yrs) Types: Cigarettes Start date: 12/08/2002 Quit date: 12/08/2017 Years since quittin.1 Smokeless tobacco: Never Vaping Use Vaping status: Former Start date: 12/08/2017 Quit date: 01/08/2018 Substance Use Topics Alcohol use: Not Currently Drug use: Not Currently Comment: quit pot 2016. Medical Marijuana 2020. Current Outpatient Medications Medication Sig acetaminophen (TYLENOL) 325 mg tablet Take 975 mg by mouth every 6 hours as needed. aspirin, enteric coated (ASPIRIN, ENTERIC COATED) 81 mg EC tablet Take 81 mg by mouth. docusate sodium (COLACE) 100 mg capsule Take 100 mg by mouth as needed. polyethylene glycol 3350 17 gram packet Take 17 g by mouth at bedtime as needed. multivitamin with minerals (VISION/OPTIGEN) tablet Take 1 tablet by mouth once daily. furosemide (LASIX) 20 mg tablet Take 20 mg by mouth once daily. LORazepam (ATIVAN) 0.5 mg Take 0.5 mg by mouth twice daily as needed. metoprolol tartrate, short acting, (LOPRESSOR) 25 mg tablet Take 0.5 tablets by mouth two times a day. No current facility-administere d medications for this visit. Objective BP 104/62 (BP Site: Right Arm, BP Position: Sitting, BP Cuff Size: Large Adult) Pu (more content not included)... Normal [facility] CBC panel Auto (Bld)on 01-14 Erythrocyte distribution width (RBC) [Ratio] 13.4 % 11.5 - 14.5 % [facility] Hematocrit (Bld) [Volume fraction] 30.1 % Low 36.0 - 46.0 % [facility] Hemoglobin (Bld) [Mass/Vol] 10.1 g/dL Low 12.0 - 16.0 g/dL [facility] Interpretation and review of laboratory results Abnormal [facility] MCH (RBC) [Entitic mass] 28.4 pg 26. 0 - 34.[address] [facility] MCHC (RBC) [Mass/Vol] 33.6 g/dL 32.0 - 36.0 g/dL [facility] MCV (RBC) [Entitic vol] 85 fL 80 - [address] [facility] Nucleated RBC/100 WBC (Bld) [Ratio] 0.0 % [facility] Platelets (Bld) [#/Vol] 152 10*3/uL [facility] RBC (Bld) [#/Vol] 3.56 10*6/uL Low [facility] WBC (Bld) [#/Vol] 7.6 10*3/uL [facility] Erythrocyte distribution width (RBC) [Ratio] 13.4 % Normal 11.5-14.5 [facility] Comment on above: Performed By: #### 5 2969-3 #### SANDRO Jain ([id number]) [facility] ([facility]) [address] [place] [address] Hematocrit (Bld) [Volume fraction] 30.1 % Low 36.0-46.0 [facility] Comment on above: Performed By: #### 5 2969-3 #### SANDRO Jain ([id number]) [facility] ([facility]) [address] [place] [address]164 Hemoglobin (Bld) [Mass/Vol] 10.1 g/dL Low 12.0-16.0 [facility] Comment on above: Performed By: #### 5 2969-3 #### SANDRO Jain ([id number]) [facility] ([facility]) [address] [place] [address]99 MCH (RBC) [Entitic mass] 28.4 pg Normal 26.0-34.0 [facility] Comment on above: Performed By: #### 5 2969-3 #### SANDRO Jain ([id number]) [facility] ([facility]) [address] [place] [address]35[address] MCHC (RBC) [Mass/Vol] 33.6 g/dL Normal 32.0-36.0 [facility] Comment on above: Performed By: #### 5 2969-3 #### SANDRO Jain ([id number]) [facility] ([facility]) [address] [place] [address] MCV (RBC) [Entitic vol] 85 fL Normal 80-100 [facility] Comment on above: Performed By: #### 5 2969-3 #### SANDRO Jain ([id number]) [facility] ([facility]) [address] [place] [address] Nucleated RBC/100 WBC (Bld) [Ratio] 0.0 /100 WBCs Normal 0.0-0.0 [facility] Comment on above: Performed By: #### 5 2969-3 #### SANDRO Jain ([id number]) [facility] ([facility]) [address] [place] [address] Platelets (Bld) [#/Vol] 152 x10*3/uL Normal 150-450 [facility] Comment on above: Performed By: #### 5 2969-3 #### SANDRO Jain ([id number]) [facility] ([facility]) [address] [place] [address] RBC (Bld) [#/Vol] 3.56 x10*6/uL Low 4.00-5.20 [facility] Comment on above: Performed By: #### 5 2969-3 #### SANDRO Jain ([id number]) [facility] ([facility]) [address] [place] [address] WBC (Bld) [#/Vol] 7.6 x10*3/uL Normal 4.4-11.3 [facility] Comment on above: Performed By: #### 5 2969-3 #### SANDRO Jain ([id number]) [facility] ([facility]) [address] [place] [address] Magnesiumon 01-14-2025 Magnesium [Mass/Vol] 2.12 mg/dL 1.60 - 2.40 mg/dL [facility] Magnesium [Mass/Vol] 2.12 mg/dL Normal 1.60-2.40 [facility] Comment on above: Performed By: #### 5 2969-3 #### SANDRO Jain ([id number]) [facility] ([facility]) [address] [place] [address] Magnesium [Mass/Vol]on 01-14 Interpretation and review of laboratory results Normal [facility] No Panel Informationon 01-[address] [facility] Renal function 2000 panelon 01-14-2025 Albumin BCP dye [Mass/Vol] 3.3 g/dL Low 3.4 - 5.0 g/dL [facility] Anion gap [Moles/Vol] 12 mmol/L 10 - 2 0 mmol/L [facility] Calcium [Mass/Vol] 8.4 mg/dL Low 8.6 - 10. 6 mg/dL [facility] Chloride [Moles/Vol] 103 mmol/L 98 - 10 7 mmol/L [facility] CO2 [Moles/Vol] 26 mmol/L 21 - 32 mmol/L [facility] Creatinine [Mass/Vol] 0.74 mg/dL 0.50 - 1.05 mg/dL [facility] eGFR - PINF [facility] Glucose [Mass/Vol] 104 mg/dL High 74 - 99 mg/dL [facility] Interpretation and review of laboratory results Abnormal [facility] Phosphate [Mass/Vol] 3.8 mg/dL 2.5 - 4 .9 mg/dL [facility] Potassium [Moles/Vol] 4.1 mmol/L 3.5 - 5.3 mmol/L [facility] Sodium [Moles/Vol] 137 mmol/L 136 - 145 mmol/L [facility] Urea nitrogen [Mass/Vol] 12 mg/dL 6 - 23 mg/d L [facility] Albumin BCP dye [Mass/Vol] 3.3 g/dL Low 3.4-5.0 [facility] Comment on above: Performed By: #### 5 2969-3 #### SANDRO LARAER L ([id number]) [facility] ([facility]) [address] [place] [address] Anion gap [Moles/Vol] 12 mmol/L Normal 10-20 [facility] Comment on above: Performed By: #### 5 2969-3 #### SANDRO KISERMOTZER L ([id number]) [facility] ([facility]) [address] [place] [address] Calcium [Mass/Vol] 8.4 mg/dL Low 8.6-10.6 [facility] Comment on above: Performed By: #### 5 2969-3 #### SANDRO SCHMOTZER L ([id number]) [facility] ([facility]) [address] [place] [address] Chloride [Moles/Vol] 103 mmol/L Normal 98-107 [facility] Comment on above: Performed By: #### 5 2969-3 #### SANDRO KISERMOTZER L ([id number]) [facility] ([facility]) [address] [place] [address] CO2 [Moles/Vol] 26 mmol/L Normal 21-32 [facility] Comment on above: Performed By: #### 5 2969-3 #### SANDRO KISERMOTZER L ([id number]) [facility] ([facility]) [id number] [place] [address] Creatinine [Mass/Vol] 0.74 mg/dL Normal 0.50-1.05 [facility] Comment on above: Performed By: #### 5 2969-3 #### SANDRO SCHMOTZER L ([id number]) [facility] ([facility]) [address] [place] [address] Glomerular filtration rate >90 Normal >60 [facility] Comment on above: Result Comment: Calc ulations of estimated GFR are performed using the 2020 CKD-EPI Study Refit equation without the race variable for the IDMS-Traceable creatinine methods. https://jasn.asnjournals.org/content/early//.570 6734985 Performed By: #### 5 2969-3 #### SANDRO LARAER L ([id number]) [facility] ([facility]) [address] [place] [address] Glucose [Mass/Vol] 104 mg/dL High 74-99 [facility] Comment on above: Performed By: #### 5 2969-3 #### SANDRO FELIX L ([id number]) [facility] ([facility]) [address] [place] [address] Phosphate [Mass/Vol] 3.8 mg/dL Normal 2.5-4.9 [facility] Comment on above: Performed By: #### 5 2969-3 #### SANDRO FELIX L ([id number]) [facility] ([facility]) [address] [place] [address] Potassium [Moles/Vol] 4.1 mmol/L Normal 3.5-5.3 [facility] Comment on above: Performed By: #### 5 2969-3 #### SANDRO FELIX L ([id number]) [facility] ([facility]) [address] [place] [address] Sodium [Moles/Vol] 137 mmol/L Normal 136-145 [facility] Comment on above: Performed By: #### 5 2969-3 #### SANDRO KISERMOKARIMEER L ([id number]) [facility] ([facility]) [address] [place] [address]15 Urea nitrogen [Mass/Vol] 12 mg/dL Normal 6-23 [facility] Comment on above: Performed By: #### 5 2969-3 #### SANDRO KISERMOTZER L ([id number]) [facility] ([facility]) [address] [place] [address]381 XR CHEST 2 VIEWSon 5 XR CHEST 2 VIEWS Interpreted By: Augustine Mendoza and Kamau Nyokabi STUDY: XR CHEST 2 VIEWS; 01/14/2025 8:48 am INDICATION: Signs/Symptoms:s/p cardiac surgery. COMPARISON: Chest x-ray 01/12/2025 ACCESSION NUMBER(S): [id number] ORDERING CLINICIAN: KRISTI LOCKE FINDINGS: PA and lateral radiographs of the chest were provided. MEDICAL DEVICES: Unchanged leads for left-sided AICD. Status post median sternotomy. CARDIOMEDIASTINAL SILHOUETTE: Cardiomediastinal silhouette is normal in size and configuration. LUNGS: Lungs are well expanded. No overt pulmonary edema. Similar-appearing gxsn-poijejc-faqn-ri ght small pleural effusions with mild bibasilar atelectasis. No pneumothorax. ABDOMEN: No remarkable upper abdominal findings. BONES: No acute osseous changes. IMPRESSION: 1. Stable small spii-kzqaaji-psxa-ri ght pleural effusions with mild bibasilar atelectasis. No significant change since prior radiograph. I personally reviewed the images/study and I agree with memory care program resident Dr. Vita Matos findings as stated. This study was interpreted at [place], [place] MACRO: None Signed by: Augustine Mendoza 01/14/2025 2:34 PM Dictation workstation: [id number] Normal [facility] XR Chest 2 Viewson 5 UH MMODAL UH MMODAL [facility] Work Phone: Radiology Study observation (narrative) [facility] Work Phone: XR Chest 2 ViewsOrdered By: Ofelia Mendoza on 01-14-[address] [facility] Work Phone: CBC panel Auto (Bld)on 01-13 Erythrocyte distribution width (RBC) [Ratio] 13.4 % 11.5 - 14.5 % [facility] Hematocrit (Bld) [Volume fraction] 28.2 % Low 36.0 - 46.0 % [facility] Hemoglobin (Bld) [Mass/Vol] 9.5 g/dL Low 12.0 - 16.0 g/dL [facility] Interpretation and review of laboratory results Abnormal [facility] MCH (RBC) [Entitic mass] 28.6 pg 26. 0 - 34.[address] [facility] MCHC (RBC) [Mass/Vol] 33.7 g/dL 32.0 - 36.0 g/dL [facility] MCV (RBC) [Entitic vol] 85 fL 80 - [address] [facility] Nucleated RBC/100 WBC (Bld) [Ratio] 0.0 % [facility] Platelets (Bld) [#/Vol] 121 10*3/uL Low [facility] RBC (Bld) [#/Vol] 3.32 10*6/uL [facility] WBC (Bld) [#/Vol] 8.3 10*3/uL [facility] Erythrocyte distribution width (RBC) [Ratio] 13.4 % Normal 11.5-14.5 [facility] Comment on above: Performed By: #### 5 2969-3 #### SANDRO Jain ([id number]) [facility] ([facility]) [address] [place] [address] Hematocrit (Bld) [Volume fraction] 28.2 % Low 36.0-46.0 [facility] Comment on above: Performed By: #### 5 2969-3 #### SANDRO Jain ([id number]) [facility] ([facility]) [address] [place] [address] Hemoglobin (Bld) [Mass/Vol] 9.5 g/dL Low 12.0-16.0 [facility] Comment on above: Performed By: #### 5 2969-3 #### SANDRO Jain ([id number]) [facility] ([facility]) [address] [place] [address] 15254 MCH (RBC) [Entitic mass] 28.6 pg Normal 26.0-34.0 [facility] Comment on above: Performed By: #### 5 2969-3 #### SANDRO Jain ([id number]) [facility] ([facility]) [address] [place] [address] 16858 MCHC (RBC) [Mass/Vol] 33.7 g/dL Normal 32.0-36.0 [facility] Comment on above: Performed By: #### 5 2969-3 #### SANDRO Jain ([id number]) [facility] ([facility]) [address] [place] [address] MCV (RBC) [Entitic vol] 85 fL Normal 80-100 [facility] Comment on above: Performed By: #### 5 2969-3 #### SANDRO Jain ([id number]) [facility] ([facility]) [address] [place] [address] Nucleated RBC/100 WBC (Bld) [Ratio] 0.0 /100 WBCs Normal 0.0-0.0 [facility] Comment on above: Performed By: #### 5 2969-3 #### SANDRO Jain ([id number]) [facility] ([facility]) [address] [place] [address] Platelets (Bld) [#/Vol] 121 x10*3/uL Low 150-450 [facility] Comment on above: Performed By: #### 5 2969-3 #### SANDRO Jain ([id number]) [facility] ([facility]) [address] [place] [address] RBC (Bld) [#/Vol] 3.32 x10*6/uL Low 4.00-5.20 [facility] Comment on above: Performed By: #### 5 2969-3 #### SANDRO Jain ([id number]) [facility] ([facility]) [address] [place] [address] 658[address] WBC (Bld) [#/Vol] 8.3 x10*3/uL Normal 4.4-11.3 [facility] Comment on above: Performed By: #### 5 2969-3 #### SANDRO Jain ([id number]) [facility] ([facility]) [id number] [place] [address] Magnesiumon 01-13-2025 Magnesium [Mass/Vol] 2.08 mg/dL 1.60 - 2.40 mg/dL [facility] Magnesium [Mass/Vol] 2.08 mg/dL Normal 1.60-2.40 [facility] Comment on above: Performed By: #### 5 2969-3 #### SANDRO Jain ([id number]) [facility] ([facility]) [address] [place], [place] [address] Magnesium [Mass/Vol]on 01-13 Interpretation and review of laboratory results Normal [facility] No Panel Informationon 01-13 Dispense Status RE [facility] PRODUCT BLOOD TYPE 6200 [facility] PRODUCT CODE [id number] [facility] Unit ABO A [facility] Unit RH Positive [facility] UNIT VOLUME [address] [facility] XM INTEP COMP [facility] Prepare RBC: 4 Unitson 01-13 Blood Expiration Date 01/16/2025 11:59:00 PM EDT [facility] Blood Expiration Date 01/22/2025 11:59:00 PM EDT [facility] Blood Expiration Date 01/23/2025 11:59:00 PM EDT [facility] Blood Expiration Date 01/30/2025 11:59:00 PM EDT [facility] Dispense Status XM [facility] Unit Number [id number] [facility] Unit Number [id number] [facility] Unit Number [id number] [facility] Unit Number [id number] [facility] Renal function 2000 panelon 01-13-2025 Albumin BCP dye [Mass/Vol] 3.3 g/dL Low 3.4 - 5.0 g/dL [facility] Anion gap [Moles/Vol] 10 mmol/L 10 - 2 0 mmol/L [facility] Calcium [Mass/Vol] 8.3 mg/dL Low 8.6 - 10. 6 mg/dL [facility] Chloride [Moles/Vol] 101 mmol/L 98 - 10 7 mmol/L [facility] CO2 [Moles/Vol] 30 mmol/L 21 - 32 mmol/L [facility] Creatinine [Mass/Vol] 0.62 mg/dL 0.50 - 1.05 mg/dL [facility] eGFR - PINF [facility] Glucose [Mass/Vol] 104 mg/dL High 74 - 99 mg/dL [facility] Interpretation and review of laboratory results Abnormal [facility] Phosphate [Mass/Vol] 3.2 mg/dL 2.5 - 4 .9 mg/dL [facility] Potassium [Moles/Vol] 3.6 mmol/L 3.5 - 5.3 mmol/L [facility] Sodium [Moles/Vol] 137 mmol/L 136 - 145 mmol/L [facility] Urea nitrogen [Mass/Vol] 12 mg/dL 6 - 23 mg/d L [facility] Albumin BCP dye [Mass/Vol] 3.3 g/dL Low 3.4-5.0 [facility] Comment on above: Performed By: #### 5 2969-3 #### SANDRO Jain ([id number]) [facility] ([facility]) [id number] [place] [address] Anion gap [Moles/Vol] 10 mmol/L Normal 10-20 [facility] Comment on above: Performed By: #### 5 2969-3 #### SANDRO Jain ([id number]) [facility] ([facility]) [id number] [place] [address] 7[address]68 Calcium [Mass/Vol] 8.3 mg/dL Low 8.6-10.6 [facility] Comment on above: Performed By: #### 5 2969-3 #### SANDRO Jain ([id number]) [facility] ([facility]) [id number] [place] [address] Chloride [Moles/Vol] 101 mmol/L Normal 98-107 [facility] Comment on above: Performed By: #### 5 2969-3 #### SANDRO Jain ([id number]) [facility] ([facility]) [address] [place] [address] CO2 [Moles/Vol] 30 mmol/L Normal 21-32 [facility] Comment on above: Performed By: #### 5 2969-3 #### SANDRO Jain ([id number]) [facility] ([facility]) [address] [place] [address] Creatinine [Mass/Vol] 0.62 mg/dL Normal 0.50-1.05 [facility] Comment on above: Performed By: #### 5 2969-3 #### SANDRO Jain ([id number]) [facility] ([facility]) [id number] [place] [address]197 Glomerular filtration rate >90 Normal >60 [facility] Comment on above: Result Comment: Calc ulations of estimated GFR are performed using the 2020 CKD-EPI Study Refit equation without the race variable for the IDMS-Traceable creatinine methods. https://jasn.asnjournals.org/content/early//ASN.368 0243565 Performed By: #### 5 2969-3 #### SANDRO Jain ([id number]) [facility] ([facility]) [id number] [place] [address] Glucose [Mass/Vol] 104 mg/dL High 74-99 [facility] Comment on above: Performed By: #### 5 2969-3 #### SANDRO Jain ([id number]) [facility] ([facility]) [address] [place] [address] Phosphate [Mass/Vol] 3.2 mg/dL Normal 2.5-4.9 [facility] Comment on above: Performed By: #### 5 2969-3 #### SANDRO FELIX L ([id number]) [facility] ([facility]) [address] [place] [address] Potassium [Moles/Vol] 3.6 mmol/L Normal 3.5-5.3 [facility] Comment on above: Performed By: #### 5 2969-3 #### SANDRO FELIX L ([id number]) [facility] ([facility]) [address] [place] [address] Sodium [Moles/Vol] 137 mmol/L Normal 136-145 [facility] Comment on above: Performed By: #### 5 2969-3 #### SANDRO Jain ([id number]) [facility] ([facility]) [address] [place] [address] Urea nitrogen [Mass/Vol] 12 mg/dL Normal 6-23 [facility] Comment on above: Performed By: #### 5 2969-3 #### SANDRO Jain ([id number]) [facility] ([facility]) [address] [place] [address] TRANSTHORACIC ECHO (TTE) [facility] ITEDon 01-13-2025 TRANSTHORACIC ECHO (TTE) [facility], [address] [place], [place] [id number] and TRANSTHORACIC ECHOCARDIOGRAM REPORT Patient Name: MICHELL WOOTEN Reading Physician: [id number] Velez MD Study Date: 01/13/2025 Ordering Provider: [id number] LOCKE MRN/PID: [id number] Fellow: Nurse: Malini Irwin RN Date of /Age: 5 1975 Tech Writer: Kimi peterson RDCS Gender assigned at F Additional Staff: : Height: 175.26 cm Admit Date: 01/28/2025 Weight: 102.97 kg Admission Status: Inpatient - Routine BSA / BMI: 2.18 m2 / 33.52 kg/m2 Blood Pressure: 101/70 mmHg Department Location: [facility] Non Invasive Study Type: TRANSTHORACIC ECHO (TTE) LIMITED Diagnosis/ICD: Other specified postprocedural states-Z98.890 Indication: S/p MVR CPT Code: Echo Limited-36729; Doppler Full-23975; Color Doppler-03097 Patient History: Pertinent History: MITRAL VALVE REPAIR W/32MM SIMUPLUS BAND, LIGATION OF RABIA (01/09/25), afib, complete heart block s/p ICD pacemaker. Study Detail: The following Echo studies were performed: 2D, M-Mode, Doppler and color flow. Technically challenging study due to body habitus, patient lying in supine position and postoperative dressings. Definity used as a contrast agent for endocardial border definition and agitated saline used as a contrast agent for intraseptal flow evaluation. Total contrast used for this procedure was 2 mL via IV push. Unable to obtain suprasternal notch view. PHYSICIAN INTERPRETATION: Left Ventricle: Left ventricular ejection fraction is mildly decreased by visual estimate at 40-45%. There is global hypokinesis of the left ventricle with minor regional variations. The left ventricular cavity size is normal. There is normal septal and mildly increased posterior left ventricular wall thickness. There is left ventricular concentric remodeling. Abnormal (paradoxical) septal motion consistent with post-operative status. Left ventricular diastolic filling was not assessed. Left Atrium: The left atrial size was not well visualized. Right Ventricle: The right ventricle is normal in size. There is normal right ventricular global systolic function. A device is visualized in the right ventricle. Right Atrium: The right atrial size was not well visualized. Aortic Valve: The aortic valve is trileaflet. There is trace aortic valve regurgitation. Mitral Valve: Status post mitral valve repair with a 32 mm mm Simulus ring. The doppler estimated peak and mean diastolic pressure gradients are 7.6 mmHg and 5 mmHg, respectively. The mean gradient of the mitral valve is 5 mmHg. There is no evidence of mitral valve regurgitation. The E Vmax is 1.25 m/s. Tricuspid Valve: The tricuspid valve is structurally normal. There is mild tricuspid regurgitation. Pulmonic Valve: The pulmonic valve is not well visualized. There is trace pulmonic valve regurgitation. Pericardium: Trivial pericardial effusion. Pleural: There is a large left pleural effusion. Aorta: The aortic root is normal. Systemic Veins: The inferior vena cava was not assessed, IVC inspiratory collapse was not assessed. CONCLUSIONS: 1. Left ventricular ejection fraction is mildly decreased by visual estimate at 40-45%. 2. Poorly visualized anatomical structures due to suboptimal image quality. 3. There is global hypokinesis of the left ventricle with minor regional variations. 4. Left ventricular diastolic filling was not assessed. 5. Abnormal septal motion consistent with post-operative status. 6. There is normal right ventricular global systolic function. 7. There is a large pleural effusion. 8. Status post mitral valve repair with a 32 mm mm Simulus ring. QUANTITATIVE DATA SUMMARY: 2D MEASUREMENTS: Normal Ranges: IVSd: 0.70 cm (0.6-1.1cm) LVPWd: 1.10 cm (0.6-1.1cm) LVIDd: 4.60 cm (3.9-5.9cm) LVIDs: 3.60 cm LV Mass Index: 63 g/m2 LVEDV Index: 50 ml/m2 LV % FS 21.7 % LV SYSTOLIC FUNCTION: Normal Ranges: EF-A4C View: 58 % (>=55%) EF-A2C View: 55 % EF-Biplane: 56 % EF-Visual: 43 % LV EF Reported: 43 % LV DIASTOLIC FUNCTION: Normal Ranges: MV Peak E: 1.25 m/s (0.7-1.2 m/s) MV Peak A: 1.12 m/s (0.42-0.7 m/s) E/A Ratio: 1.12 (1.0-2.2) MV e' 0.070 m/s (>8.0) MV lateral e' 0.08 m/s MV medial e' 0.06 m/s E/e' Ratio: 17.82 (<8.0) MITRAL VALVE: Normal Ranges: MV Vmax: 1.38 m/s (<=1.3m/s) MV peak P.6 mmHg (<5mmHg) MV mean P.5 mmHg (<2mmHg) MV DT: 174 msec (150-240msec) AORTIC VALVE: Normal Ranges: AoV Vmax: 1.40 m/s (<=1.7m/s) AoV Peak P.8 mmHg (<20mmHg) TRICUSPID VALVE/RVSP: Normal Ranges: Peak TR Velocity: 1.72 m/s [id number] Jeremy Velez MD Electronically signed on 01/13/2025 at 12:02:22 PM Final CONCLUSIONS: 1. Left ventricular ejection fraction is mildly decreased by visual estimate at 40-45%. 2. Poorly visualized anatomical structures due to s (more content not included)... Normal [facility] US Heart TransthoracicOrdere d By: Jeremy Velez on 01-13-2025 AV pk grad [address] [facility] Work Phone: AV pk rosa 1.40 m/s [facility] Work Phone: LV A4C EF 58.[address] [facility] Work Phone: LV EF 43 % [facility] Work Phone: [phone] LVIDd 4.[address] [facility] Work Phone: [phone] MV E/A ratio 1.[address] [facility] Work Phone: RVSP [address] [facility] Work Phone: [facility] Work Phone: [phone] US Heart Transthoracicon SYNGO SYNGO [facility] Work Phone: CBC panel Auto (Bld)on 01-12 Erythrocyte distribution width (RBC) [Ratio] 13.7 % 11.5 - 14.5 % [facility] Hematocrit (Bld) [Volume fraction] 29.8 % Low 36.0 - 46.0 % [facility] Hemoglobin (Bld) [Mass/Vol] 9.4 g/dL Low 12.0 - 16.0 g/dL [facility] Interpretation and review of laboratory results Abnormal [facility] MCH (RBC) [Entitic mass] 28.0 pg 26. 0 - 34.[address] [facility] MCHC (RBC) [Mass/Vol] 31.5 g/dL Low 32.0 - 36.0 g/dL [facility] MCV (RBC) [Entitic vol] 89 fL 80 - [address] [facility] Nucleated RBC/100 WBC (Bld) [Ratio] 0.0 % [facility] Platelets (Bld) [#/Vol] 84 10*3/uL Low [facility] RBC (Bld) [#/Vol] 3.36 10*6/uL Low [facility] WBC (Bld) [#/Vol] 11.0 10*3/uL [facility] Erythrocyte distribution width (RBC) [Ratio] 13.7 % Normal 11.5-14.5 [facility] Comment on above: Performed By: #### 3 4532-2 #### SANDRO Jain ([id number]) [facility] ([facility]) [address] [place] [address] Hematocrit (Bld) [Volume fraction] 29.8 % Low 36.0-46.0 [facility] Comment on above: Performed By: #### 3 4532-2 #### SANDRO Jain ([id number]) [facility] ([facility]) [address] [place] [address] Hemoglobin (Bld) [Mass/Vol] 9.4 g/dL Low 12.0-16.0 [facility] Comment on above: Performed By: #### 3 4531-2 #### SANDRO Jain ([id number]) [facility] ([facility]) [address] [place] [address] MCH (RBC) [Entitic mass] 28.0 pg Normal 26.0-34.0 [facility] Comment on above: Performed By: #### 3 4531-2 #### SANDRO Jain ([id number]) [facility] ([facility]) [address] [place] [address] MCHC (RBC) [Mass/Vol] 31.5 g/dL Low 32.0-36.0 [facility] Comment on above: Performed By: #### 3 4531-2 #### SANDRO Jain ([id number]) [facility] ([facility]) [address] [place] [address] MCV (RBC) [Entitic vol] 89 fL Normal 80-100 [facility] Comment on above: Performed By: #### 3 4531-2 #### SANDRO Jain ([id number]) [facility] ([facility]) [address] [place] [address] Nucleated RBC/100 WBC (Bld) [Ratio] 0.0 /100 WBCs Normal 0.0-0.0 [facility] Comment on above: Performed By: #### 3 4531-2 #### SANDRO Jain ([id number]) [facility] ([facility]) [address] [place] [address] Platelets (Bld) [#/Vol] 84 x10*3/uL Low 150-450 [facility] Comment on above: Performed By: #### 3 4532-2 #### SANDRO Jain ([id number]) [facility] ([facility]) [address] [place] [address] RBC (Bld) [#/Vol] 3.36 x10*6/uL Low 4.00-5.20 [facility] Comment on above: Performed By: #### 3 4532-2 #### SANDRO Jain ([id number]) [facility] ([facility]) [address] [place] [address] WBC (Bld) [#/Vol] 11.0 x10*3/uL Normal 4.4-11.3 [facility] Comment on above: Performed By: #### 3 4532-2 #### SANDRO Jain ([id number]) [facility] ([facility]) [address] [place] [address] Glucose Test strip manual (B ld) [Mass/Vol]on 01-12-2025 Glucose [Mass/Vol] 114 mg/dL High 74 - 99 mg/dL [facility] Interpretation and review of laboratory results Abnormal [facility] Glucose [Mass/Vol] 114 mg/dL High 74-99 [facility] Comment on above: Performed By: #### 5 2969-3 #### SANDRO Jain ([id number]) [facility] ([facility]) [address] [place] [address] Glucose [Mass/Vol] 125 mg/dL High 74 - 99 mg/dL [facility] Interpretation and review of laboratory results Abnormal [facility] Glucose [Mass/Vol] 125 mg/dL High 74-99 [facility] Comment on above: Performed By: #### 3 4532-2 #### SANDRO Jain ([id number]) [facility] ([facility]) [address] [place] [address] Glucose [Mass/Vol] 138 mg/dL High 74 - 99 mg/dL [facility] Interpretation and review of laboratory results Abnormal [facility] Glucose [Mass/Vol] 138 mg/dL High 74-99 [facility] Comment on above: Performed By: #### 3 4532-2 #### SANDRO Jain ([id number]) [facility] ([facility]) [address] [place] [address] Glucose [Mass/Vol] 102 mg/dL High 74 - 99 mg/dL [facility] Interpretation and review of laboratory results Abnormal [facility] Glucose [Mass/Vol] 102 mg/dL High 74-99 [facility] Comment on above: Performed By: #### 3 4532-2 #### SANDRO Jain ([id number]) [facility] ([facility]) [address] [place] [address] Glucose [Mass/Vol] 106 mg/dL High 74 - 99 mg/dL [facility] Interpretation and review of laboratory results Abnormal [facility] Glucose [Mass/Vol] 106 mg/dL High 74-99 [facility] Comment on above: Performed By: #### 3 4532-2 #### SANDRO Jain ([id number]) [facility] ([facility]) [address] [place] [address] Magnesiumon 01-12-2025 Magnesium [Mass/Vol] 2.05 mg/dL 1.60 - 2.40 mg/dL [facility] Magnesium [Mass/Vol] 2.05 mg/dL Normal 1.60-2.40 [facility] Comment on above: Performed By: #### 3 4532-2 #### SANDRO Jain ([id number]) [facility] ([facility]) [address] [place] [address] Magnesium [Mass/Vol]on 01-12 Interpretation and review of laboratory results Normal [facility] No Panel Informationon 01-[address] [facility] Renal function 2000 panelon 01-12-2025 Albumin BCP dye [Mass/Vol] 3.3 g/dL Low 3.4 - 5.0 g/dL [facility] Anion gap [Moles/Vol] 10 mmol/L 10 - 2 0 mmol/L [facility] Calcium [Mass/Vol] 8.4 mg/dL Low 8.6 - 10. 6 mg/dL [facility] Chloride [Moles/Vol] 101 mmol/L 98 - 10 7 mmol/L [facility] CO2 [Moles/Vol] 30 mmol/L 21 - 32 mmol/L [facility] Creatinine [Mass/Vol] 0.60 mg/dL 0.50 - 1.05 mg/dL [facility] eGFR - PINF [facility] Glucose [Mass/Vol] 101 mg/dL High 74 - 99 mg/dL [facility] Interpretation and review of laboratory results Abnormal [facility] Phosphate [Mass/Vol] 2.3 mg/dL Low 2.5 - 4 .9 mg/dL [facility] Potassium [Moles/Vol] 3.9 mmol/L 3.5 - 5.3 mmol/L [facility] Sodium [Moles/Vol] 137 mmol/L 136 - 145 mmol/L [facility] Urea nitrogen [Mass/Vol] 13 mg/dL 6 - 23 mg/d L [facility] Albumin BCP dye [Mass/Vol] 3.3 g/dL Low 3.4-5.0 [facility] Comment on above: Performed By: #### 3 4532-2 #### SANDRO Jain ([id number]) [facility]) [address] [place] [address] Anion gap [Moles/Vol] 10 mmol/L Normal 10-20 [facility] Comment on above: Performed By: #### 3 4532-2 #### SANDRO Jain ([id number]) [facility]) [address] [place] [address] Calcium [Mass/Vol] 8.4 mg/dL Low 8.6-10.6 [facility] Comment on above: Performed By: #### 3 4532-2 #### SANDRO Jain (05354) [facility]) [address] [place] [address] Chloride [Moles/Vol] 101 mmol/L Normal 98-107 [facility] Comment on above: Performed By: #### 3 4532-2 #### SANDRO Jain ([id number]) [facility]) [address] [place] [address] CO2 [Moles/Vol] 30 mmol/L Normal 21-32 [facility] Comment on above: Performed By: #### 3 4532-2 #### SANDRO Jain ([id number]) [facility]) [address] [place] [address] Creatinine [Mass/Vol] 0.60 mg/dL Normal 0.50-1.05 [facility] Comment on above: Performed By: #### 3 4532-2 #### SANDRO Jain ([id number]) [facility]) [address] [place] [address] Glomerular filtration rate >90 Normal >60 [facility] Comment on above: Result Comment: Calc ulations of estimated GFR are performed using the 2020 CKD-EPI Study Refit equation without the race variable for the IDMS-Traceable creatinine methods. https://jasn.asnjournals.org/content/early//ASN.280 9269122 Performed By: #### 3 4532-2 #### SANDRO Jain ([id number]) [facility] ([facility]) [address] [place] [address] Glucose [Mass/Vol] 101 mg/dL High 74-99 [facility] Comment on above: Performed By: #### 3 4532-2 #### SANDRO Jain ([id number]) [facility]) [address] [place] [address] Phosphate [Mass/Vol] 2.3 mg/dL Low 2.5-4.9 [facility] Comment on above: Performed By: #### 3 4532-2 #### SANDRO LARAER L ([id number]) [facility]) [address] [place] [address] Potassium [Moles/Vol] 3.9 mmol/L Normal 3.5-5.3 [facility] Comment on above: Performed By: #### 3 4532-2 #### SANDRO SCHMOTZER L ([id number]) [facility]) [address] [place] [address] Sodium [Moles/Vol] 137 mmol/L Normal 136-145 [facility] Comment on above: Performed By: #### 3 4532-2 #### SANDRO KISERMOKARIMEER L ([id number]) [facility]) [address] [place] [address] Urea nitrogen [Mass/Vol] 13 mg/dL Normal 6-23 [facility] Comment on above: Performed By: #### 3 4532-2 #### SANDRO DE DIOSTZER L ([id number]) [facility]) [address] [place] [address] XR CHEST 2 VIEWSon XR CHEST 2 VIEWS Interpreted By: Jose M Mann, STUDY: XR CHEST 2 VIEWS; 01/12/2025 8:56 am INDICATION: Signs/Symptoms:s/p cardiac surgery. COMPARISON: Radiographs dated 01/11/2025 ACCESSION NUMBER(S): [id number] ORDERING CLINICIAN: KRISTI LOCKE FINDINGS: PA and lateral radiographs of the chest were provided. Additional PA dual energy images were also provided. Status post median sternotomy mitral valve replacement. Left chest wall pacer/ICD device and leads are in similar position. CARDIOMEDIASTINAL SILHOUETTE: Mild enlargement of the cardiac silhouette is stable. Remaining mediastinal contours within normal limits. LUNGS: Stable small left and trace right pleural effusions with bibasilar atelectasis. Additional linear atelectasis in the right mid lung. No pneumothorax. ABDOMEN: No remarkable upper abdominal findings. BONES: No acute osseous changes. IMPRESSION: 1. Small left and trace right pleural effusions with bibasilar atelectasis. No pneumothorax. MACRO: None Signed by: Jose M Mann 01/12/2025 2:01 PM Dictation workstation: [id number] Normal [facility] XR Chest 2 Viewson U[facility] MMODAL U[facility] MMODAL [facility] Work Phone: Radiology Study observation (narrative) [facility] Work Phone: XR Chest 2 ViewsOrdered By: Jose M Mann on 01-12-[address] [facility] Work Phone: CBC panel Auto (Bld)on 01-11 Erythrocyte distribution width (RBC) [Ratio] 13.2 % 11.5 - 14.5 % [facility] Hematocrit (Bld) [Volume fraction] 29.8 % Low 36.0 - 46.0 % [facility] Hemoglobin (Bld) [Mass/Vol] 10.0 g/dL Low 12.0 - 16.0 g/dL [facility] Interpretation and review of laboratory results Abnormal [facility] MCH (RBC) [Entitic mass] 28.1 pg 26. 0 - 34.[address] [facility] MCHC (RBC) [Mass/Vol] 33.6 g/dL 32.0 - 36.0 g/dL [facility] MCV (RBC) [Entitic vol] 84 fL 80 - [address] [facility] Nucleated RBC/100 WBC (Bld) [Ratio] 0.0 % [facility] Platelets (Bld) [#/Vol] 90 10*3/uL [facility] RBC (Bld) [#/Vol] 3.56 10*6/uL Low [facility] WBC (Bld) [#/Vol] 15.9 10*3/uL [facility] Erythrocyte distribution width (RBC) [Ratio] 13.2 % Normal 11.5-14.5 [facility] Comment on above: Performed By: #### 5 8410-2 ####SANDRO Jain ([id number])[facility] ([facility])[address] [place] [address] Hematocrit (Bld) [Volume fraction] 29.8 % Low 36.0-46.0 [facility] Comment on above: Performed By: #### 5 8410-2 ####SANDRO Jain ([id number])[facility] ([facility])[address] [place] [address] Hemoglobin (Bld) [Mass/Vol] 10.0 g/dL Low 12.0-16.0 [facility] Comment on above: Performed By: #### 5 8410-2 ####SANDRO Jain ([id number])[facility] ([facility])[address] [place] [address] MCH (RBC) [Entitic mass] 28.1 pg Normal 26.0-34.0 [facility] Comment on above: Performed By: #### 5 8410-2 ####SANDRO Jain ([id number])[facility] ([facility])[address] [place] [address] MCHC (RBC) [Mass/Vol] 33.6 g/dL Normal 32.0-36.0 [facility] Comment on above: Performed By: #### 5 8410-2 ####SANDRO Jain ([id number])[facility] ([facility])[address] [place] [address] MCV (RBC) [Entitic vol] 84 fL Normal 80-100 [facility] Comment on above: Performed By: #### 5 8410-2 ####SANDRO Jain ([id number])[facility] ([facility])[address] [place] [address] Nucleated RBC/100 WBC (Bld) [Ratio] 0.0 /100 WBCs Normal 0.0-0.0 [facility] Comment on above: Performed By: #### 5 8410-2 ####SANDRO Jain ([id number])[facility] ([facility])[address] [place] [address] Platelets (Bld) [#/Vol] 90 x10*3/uL Low 150-450 [facility] Comment on above: Performed By: #### 5 8410-2 ####SANDRO Jain ([id number])[facility] ([facility])[address] [place] [address] RBC (Bld) [#/Vol] 3.56 x10*6/uL Low 4.00-5.20 [facility] Comment on above: Performed By: #### 5 8410-2 ####SANDRO Jain ([id number])[facility] ([facility])[address] [place] [address] WBC (Bld) [#/Vol] 15.9 x10*3/uL High 4.4-11.3 [facility] Comment on above: Performed By: #### 5 8410-2 ####SANDRO Jain ([id number])[facility] ([facility])[address] [place] [address] Glucose Test strip manual (B ld) [Mass/Vol]on 01-11-2025 Glucose [Mass/Vol] 109 mg/dL High 74 - 99 mg/dL [facility] Interpretation and review of laboratory results Abnormal [facility] Glucose [Mass/Vol] 109 mg/dL High 74-99 [facility] Comment on above: Performed By: #### 3 4532-2 #### SANDRO Jain ([id number]) [facility] [facility]) [address] [place] [address] Glucose [Mass/Vol] 154 mg/dL High 74 - 99 mg/dL [facility] Interpretation and review of laboratory results Abnormal [facility] Glucose [Mass/Vol] 154 mg/dL High 74-99 [facility] Comment on above: Performed By: #### 3 4532-2 #### SANDRO Jain ([id number]) [facility] ([facility]) [id number] [place] [address] Glucose [Mass/Vol] 157 mg/dL High 74 - 99 mg/dL [facility] Interpretation and review of laboratory results Abnormal [facility] Glucose [Mass/Vol] 157 mg/dL High 74-99 [facility] Comment on above: Performed By: #### 2 341-6 ####SANDRO Jain ([id number])[facility] ([facility])[address] [place] [address] Magnesiumon 01-11-2025 Magnesium [Mass/Vol] 1.94 mg/dL 1.60 - 2.40 mg/dL [facility] Magnesium [Mass/Vol] 1.94 mg/dL Normal 1.60-2.40 [facility] Comment on above: Performed By: #### 1 9123-9 ####SANDRO Jain ([id number])[facility] ([facility])[address] [place] [address] Magnesium [Mass/Vol]on 01-11 Interpretation and review of laboratory results Normal [facility] No Panel Informationon 01-[address] [facility] Renal function 2000 panelon 01-11-2025 Albumin BCP dye [Mass/Vol] 3.5 g/dL 3.4 - 5.0 g/dL [facility] Anion gap [Moles/Vol] 10 mmol/L 10 - 2 0 mmol/L [facility] Calcium [Mass/Vol] 8.7 mg/dL 8.6 - 10. 6 mg/dL [facility] Chloride [Moles/Vol] 101 mmol/L 98 - 10 7 mmol/L [facility] CO2 [Moles/Vol] 28 mmol/L 21 - 32 mmol/L [facility] Creatinine [Mass/Vol] 0.68 mg/dL 0.50 - 1.05 mg/dL [facility] eGFR - PINF [facility] Glucose [Mass/Vol] 152 mg/dL High 74 - 99 mg/dL [facility] Interpretation and review of laboratory results Abnormal [facility] Phosphate [Mass/Vol] 2.2 mg/dL Low 2.5 - 4 .9 mg/dL [facility] Potassium [Moles/Vol] 3.9 mmol/L 3.5 - 5.3 mmol/L [facility] Sodium [Moles/Vol] 135 mmol/L Low 136 - 145 mmol/L [facility] Urea nitrogen [Mass/Vol] 10 mg/dL 6 - 23 mg/d L [facility] Albumin BCP dye [Mass/Vol] 3.5 g/dL Normal 3.4-5.0 [facility] Comment on above: Performed By: #### 2 4362-6 ####SANDRO Jain ([id number])[facility] ([facility])[address] [place] [address] Anion gap [Moles/Vol] 10 mmol/L Normal 10-20 [facility] Comment on above: Performed By: #### 2 4362-6 ####SANDRO Jain ([id number])[facility] ([facility])[address] [place] [address] Calcium [Mass/Vol] 8.7 mg/dL Normal 8.6-10.6 [facility] Comment on above: Performed By: #### 2 4362-6 ####SANDRO Jain ([id number])[facility] ([facility])[address] [place] [address] Chloride [Moles/Vol] 101 mmol/L Normal 98-107 [facility] Comment on above: Performed By: #### 2 4362-6 ####SANDRO Jain ([id number])[facility] ([facility])[address] [place] [address] CO2 [Moles/Vol] 28 mmol/L Normal 21-32 [facility] Comment on above: Performed By: #### 2 4362-6 ####SANDRO Jain ([id number])[facility] ([facility])[address] [place] [address] Creatinine [Mass/Vol] 0.68 mg/dL Normal 0.50-1.05 [facility] Comment on above: Performed By: #### 2 4362-6 ####SANDRO Jain ([id number])[facility] ([facility])[address] [place] [address] Glomerular filtration rate >90 Normal >60 [facility] Comment on above: Result Comment: Calc ulations of estimated GFR are performed using the 2020 CKD-EPI Study Refit equation without the race variable for the IDMS-Traceable creatinine methods. https://jasn.asnjournals.org/content/early//ASN.413 5270581 Performed By: #### 2 4362-6 ####SANDRO Jain ([id number])[facility] ([facility])[address] [place] [address] Glucose [Mass/Vol] 152 mg/dL High 74-99 [facility] Comment on above: Performed By: #### 2 4362-6 ####SANDRO Jain ([id number])[facility] ([facility])[address] [place] [address] Phosphate [Mass/Vol] 2.2 mg/dL Low 2.5-4.9 [facility] Comment on above: Performed By: #### 2 4362-6 ####SANDRO Jain ([id number])[facility] ([facility])[address] [place] [address] Potassium [Moles/Vol] 3.9 mmol/L Normal 3.5-5.3 [facility] Comment on above: Performed By: #### 2 4362-6 ####SANDRO Jain ([id number])[facility] ([facility])[address] [place] [address] Sodium [Moles/Vol] 135 mmol/L Low 136-145 [facility] Comment on above: Performed By: #### 2 4362-6 ####SANDRO Jain ([id number])[facility] ([facility])[address] [place] [address] Urea nitrogen [Mass/Vol] 10 mg/dL Normal 6-23 [facility] Comment on above: Performed By: #### 2 4362-6 ####SANDRO Jain ([id number])[facility] ([facility])[address] [place] [address] XR CHEST 1 VIEWon 01-11-2025 XR CHEST 1 VIEW Interpreted By: Lilly Gentile, STUDY: XR CHEST 1 VIEW; 01/11/2025 3:58 am INDICATION: Signs/Symptoms:s/p cardiac surgery. COMPARISON: Radiograph dated 01/10/2025 ACCESSION NUMBER(S): [id number] ORDERING CLINICIAN: CARLIE BARBA FINDINGS: Interval removal of bilateral chest tubes. Interval removal of mediastinal drain. Left subclavian approach pacer/defibrillator is unchanged in positioning. Patient is status post median sternotomy. Cardiac silhouette size is within normal limits. Mild bibasilar atelectasis and trace left pleural effusion. No sizable pneumothorax. No acute osseous abnormality. IMPRESSION: 1. No sizable pneumothorax status post removal of chest tubes. 2. Bibasilar atelectasis and suggestion of small left pleural effusion. Signed by: Lilly Rodriguez 01/11/2025 11:11 AM Dictation workstation: [id number] Normal [facility] Comment on above: Order Comment: AM ro unds and upright XR Chest Single viewon 01-11 [facility] MM[facility]AL [facility] MM[facility]AL [facility] Work Phone: Radiology Study observation (narrative) [facility] Work Phone: XR Chest Single viewOrdered By: Lilly Rodriguez on 01-11-[address] [facility] Work Phone: Anesthesia Intraoperative Tr ansesophageal EchocardiogramOrdered By: Yoseph Gutierrez on 01-10-2025 LV EF 58 % [facility] Work Phone: [facility] Work Phone: Anesthesia Intraoperative Tr ansesophageal Echocardiogramon 01-10-[address] [facility] Work Phone: CBC panel Auto (Bld)on 01-10 Erythrocyte distribution width (RBC) [Ratio] 13.4 % 11.5 - 14.5 % [facility] Hematocrit (Bld) [Volume fraction] 36.7 % 36.0 - 46.0 % [facility] Hemoglobin (Bld) [Mass/Vol] 11.6 g/dL Low 12.0 - 16.0 g/dL [facility] Interpretation and review of laboratory results Abnormal [facility] MCH (RBC) [Entitic mass] 27.8 pg 26. 0 - 34.[address] [facility] MCHC (RBC) [Mass/Vol] 31.6 g/dL Low 32.0 - 36.0 g/dL [facility] MCV (RBC) [Entitic vol] 88 fL 80 - [address] [facility] Nucleated RBC/100 WBC (Bld) [Ratio] 0.0 % [facility] Platelets (Bld) [#/Vol] 130 10*3/uL Low [facility] RBC (Bld) [#/Vol] 4.18 10*6/uL [facility] WBC (Bld) [#/Vol] 21.3 10*3/uL High [facility] Erythrocyte distribution width (RBC) [Ratio] 13.4 % Normal 11.5-14.5 [facility] Comment on above: Performed By: #### 2 4323-8 #### SANDRO Jain ([id number]) [facility] ([facility]) [address] [place] [address] Hematocrit (Bld) [Volume fraction] 36.7 % Normal 36.0-46.0 [facility] Comment on above: Performed By: #### 2 4323-8 #### SANDRO Jain ([id number]) [facility] ([facility]) [address] [place] [address] Hemoglobin (Bld) [Mass/Vol] 11.6 g/dL Low 12.0-16.0 [facility] Comment on above: Performed By: #### 2 4323-8 #### SANDRO Jain ([id number]) [facility] ([facility]) [address] [place] [address] MCH (RBC) [Entitic mass] 27.8 pg Normal 26.0-34.0 [facility] Comment on above: Performed By: #### 2 4323-8 #### SANDRO Jain ([id number]) [facility] ([facility]) [address] [place] [address] MCHC (RBC) [Mass/Vol] 31.6 g/dL Low 32.0-36.0 [facility] Comment on above: Performed By: #### 2 4323-8 #### SANDRO Jain ([id number]) [facility] ([facility]) [address] [place] [address] MCV (RBC) [Entitic vol] 88 fL Normal 80-100 [facility] Comment on above: Performed By: #### 2 4323-8 #### SANDRO Jain (69594) [facility] ([facility]) [address] [place] [address] Nucleated RBC/100 WBC (Bld) [Ratio] 0.0 /100 WBCs Normal 0.0-0.0 [facility] Comment on above: Performed By: #### 2 4323-8 #### SANDRO Jain ([id number]) [facility] ([facility]) [address] [place] [address] Platelets (Bld) [#/Vol] 130 x10*3/uL Low 150-450 [facility] Comment on above: Performed By: #### 2 4323-8 #### SANDRO Jain ([id number]) [facility] ([facility]) [address] [place] [address] 596[address] RBC (Bld) [#/Vol] 4.18 x10*6/uL Normal 4.00-5.20 [facility] Comment on above: Performed By: #### 2 4323-8 #### SANDRO Jain ([id number]) [facility] ([facility]) [address] [place] [address] WBC (Bld) [#/Vol] 21.3 x10*3/uL High 4.4-11.3 [facility] Comment on above: Performed By: #### 2 4323-8 #### SANDRO Jain ([id number]) [facility] ([facility]) [address] [place] [address] Calcium, Ionizedon Calcium.ionized (Bld) [Moles/Vol] 1.08 mmol/L Low 1.1 - 1.33 mmol/L [facility] Calcium.ionizedon 01-10-2025 Calcium.ionized (Bld) [Moles/Vol] 1.08 mmol/L Low 1.1-1.33 [facility] Comment on above: Result Comment: The performance characteristics of ionized calcium tested in heparinized plasma or serum have been validated by the individual laboratory site where testing is performed. Testing on heparinized plasma or serum is not approved by the FDA; however, such approval is not necessary. Performed By: #### 2 4323-8 #### SANDRO Jain ([id number]) [facility] ([facility]) [address] [place] [address] Calcium.ionized (Bld) [Moles /Vol]on 01-10-2025 Interpretation and review of laboratory results Abnormal [facility] Glucose Test strip manual (B ld) [Mass/Vol]on 01-10-2025 Glucose [Mass/Vol] 130 mg/dL High 74 - 99 mg/dL [facility] Interpretation and review of laboratory results Abnormal [facility] Glucose [Mass/Vol] 130 mg/dL High 74-99 [facility] Comment on above: Result Comment: MARISOL MCINTYRE Performed By: #### 2 341-6 ####SANDRO Jain ([id number])[facility] ([facility])[address] [place] [address] Glucose [Mass/Vol] 121 mg/dL High 74 - 99 mg/dL [facility] Interpretation and review of laboratory results Abnormal [facility] Glucose [Mass/Vol] 121 mg/dL High 74-99 [facility] Comment on above: Performed By: #### 2 341-6 ####SANDRO Jain ([id number])[facility] ([facility])[address] [place] [address] Glucose [Mass/Vol] 127 mg/dL High 74 - 99 mg/dL [facility] Interpretation and review of laboratory results Abnormal [facility] Glucose [Mass/Vol] 127 mg/dL High 74-99 [facility] Comment on above: Performed By: #### 2 341-6 ####SANDRO Jain ([id number])[facility] ([facility])[address] [place] [address] Glucose [Mass/Vol] 163 mg/dL High 74 - 99 mg/dL [facility] Interpretation and review of laboratory results Abnormal [facility] Glucose [Mass/Vol] 163 mg/dL High 74-99 [facility] Comment on above: Performed By: #### 2 4323-8 #### SANDRO Jain ([id number]) [facility] ([facility]) [address] [place] [address] Magnesiumon 01-10-2025 Magnesium [Mass/Vol] 2.15 mg/dL 1.60 - 2.40 mg/dL [facility] Magnesium [Mass/Vol] 2.15 mg/dL Normal 1.60-2.40 [facility] Comment on above: Performed By: #### 2 4323-8 #### SANDRO Jain ([id number]) [facility] ([facility]) [address] [place] [address] Magnesium [Mass/Vol]on 01-10 Interpretation and review of laboratory results Normal [facility] No Panel Informationon 01-[address] [facility] Renal function 2000 panelon 01-10-2025 Albumin BCP dye [Mass/Vol] 3.6 g/dL 3.4 - 5.0 g/dL [facility] Anion gap [Moles/Vol] 14 mmol/L 10 - 2 0 mmol/L [facility] Calcium [Mass/Vol] 8.3 mg/dL Low 8.6 - 10. 6 mg/dL [facility] Chloride [Moles/Vol] 103 mmol/L 98 - 10 7 mmol/L [facility] CO2 [Moles/Vol] 24 mmol/L 21 - 32 mmol/L [facility] Creatinine [Mass/Vol] 0.79 mg/dL 0.50 - 1.05 mg/dL [facility] eGFR - PINF [facility] Glucose [Mass/Vol] 142 mg/dL High 74 - 99 mg/dL [facility] Interpretation and review of laboratory results Abnormal [facility] Phosphate [Mass/Vol] 3.2 mg/dL 2.5 - 4 .9 mg/dL [facility] Potassium [Moles/Vol] 4.1 mmol/L 3.5 - 5.3 mmol/L [facility] Sodium [Moles/Vol] 137 mmol/L 136 - 145 mmol/L [facility] Urea nitrogen [Mass/Vol] 13 mg/dL 6 - 23 mg/d L [facility] Albumin BCP dye [Mass/Vol] 3.6 g/dL Normal 3.4-5.0 [facility] Comment on above: Performed By: #### 2 4323-8 #### SANDRO Jain ([id number]) [facility] ([facility]) [address] [place] [address] Anion gap [Moles/Vol] 14 mmol/L Normal 10-20 [facility] Comment on above: Performed By: #### 2 4323-8 #### SANDRO Jain ([id number]) [facility] ([facility]) [address] [place] [address] Calcium [Mass/Vol] 8.3 mg/dL Low 8.6-10.6 [facility] Comment on above: Performed By: #### 2 4323-8 #### SANDRO Jain ([id number]) [facility] ([facility]) [address] [place] [address] Chloride [Moles/Vol] 103 mmol/L Normal 98-107 [facility] Comment on above: Performed By: #### 2 4323-8 #### SANDRO Jain ([id number]) [facility] ([facility]) [address] [place] [address] CO2 [Moles/Vol] 24 mmol/L Normal 21-32 [facility] Comment on above: Performed By: #### 2 4323-8 #### SANDRO Jain ([id number]) [facility] ([facility]) [address] [place] [address] Creatinine [Mass/Vol] 0.79 mg/dL Normal 0.50-1.05 [facility] Comment on above: Performed By: #### 2 4323-8 #### SANDRO Jain ([id number]) [facility] ([facility]) [address] [place] [address] Glomerular filtration rate >90 Normal >60 [facility] Comment on above: Result Comment: Calc ulations of estimated GFR are performed using the 2020 CKD-EPI Study Refit equation without the race variable for the IDMS-Traceable creatinine methods. https://jasn.asnjournals.org/content//ASN.690 5416302 Performed By: #### 2 4323-8 #### SANDRO Jain ([id number]) [facility] ([facility]) [address] [place] [address] Glucose [Mass/Vol] 142 mg/dL High 74-99 [facility] Comment on above: Performed By: #### 2 4323-8 #### SANDRO Jani ([id number]) [facility] ([facility]) [address] [place] [address] Phosphate [Mass/Vol] 3.2 mg/dL Normal 2.5-4.9 [facility] Comment on above: Performed By: #### 2 4323-8 #### SANDRO LARAER L ([id number]) [facility] ([facility]) [address] [place] [address] Potassium [Moles/Vol] 4.1 mmol/L Normal 3.5-5.3 [facility] Comment on above: Performed By: #### 2 4323-8 #### SANDRO SCHMOTZER L ([id number]) [facility] ([facility]) [address] [place] [address] Sodium [Moles/Vol] 137 mmol/L Normal 136-145 [facility] Comment on above: Performed By: #### 2 4323-8 #### SANDRO SCHMOTZER L ([id number]) [facility] ([facility]) [address] [place] [address] Urea nitrogen [Mass/Vol] 13 mg/dL Normal 6-23 [facility] Comment on above: Performed By: #### 2 4323-8 #### SANDRO SCHMOTZER L ([id number]) [facility] ([facility]) [address] [place] [address] XR CHEST 1 VIEWon 01-10-2025 XR CHEST 1 VIEW Interpreted By: Niraj Bella and Nadeau Simon STUDY: XR CHEST 1 VIEW; 01/10/2025 4:26 am INDICATION: Signs/Symptoms:Post op cardiac surgery. COMPARISON: Chest radiograph 01/09/2025 ACCESSION NUMBER(S): [id number] ORDERING CLINICIAN: CLAUS LOPEZ FINDINGS: AP radiograph of the chest was provided. Right internal jugular approach central venous catheter with distal tip projecting over the lower SVC. Left subclavian approach AICD/pacemaker with distal leads projecting over the right atrium and right ventricle. Mediastinal drain visualized. Right-sided chest tube with distal tip projecting over the superior right hemithorax. Left-sided chest tube with distal tip projected abutting the mediastinum. CARDIOMEDIASTINAL SILHOUETTE: Cardiomediastinal silhouette is enlarged in the postoperative setting. LUNGS: Interstitial opacifications in the bilateral perihilar regions with bibasilar atelectasis. No evidence of pleural effusion or sizable pneumothorax. Increased bronchovascular crowding bilaterally. ABDOMEN: No remarkable upper abdominal findings. BONES: No acute osseous changes. IMPRESSION: 1. Improved appearance of the bilateral perihilar interstitial opacifications and bibasilar atelectasis. Worsening aeration of the lungs compared to prior. Findings likely expected in the postsurgical setting. 2. Interval removal of the endotracheal tube. 3. Additional medical devices as above. I personally reviewed the images/study and I agree with the findings as stated by Aries Roldan D.O. (assistant vice president). This study was interpreted at [place], [place]. MACRO: None Signed by: Niraj Bella 01/10/2025 3:09 PM Dictation workstation: [id number] Normal [facility] Comment on above: Order Comment: Tomor row in ICU XR Chest Single viewon 01-10 [facility] MMODAL U[facility] MMODAL [facility] Work Phone: [facility] Work Phone: Radiology Study observation (narrative) [facility] Work Phone: ACT Coag (Bld)on 01-09-2025 Interpretation and review of laboratory results Normal [facility] Interpretation and review of laboratory results Abnormal [facility] Interpretation and review of laboratory results Abnormal [facility] Interpretation and review of laboratory results Abnormal [facility] Interpretation and review of laboratory results Abnormal [facility] Interpretation and review of laboratory results Normal [facility] ACTIVATED CLOTTING TIME HIGH on 01-09-2025 ACT Coag (Bld) [address] [facility] Comment on above: Target ACT range laly l vary based on the patient population, clinical status, and surgical intervention occurring. ACT Coag (Bld) 415 s [facility] Comment on above: Target ACT range laly l vary based on the patient population, clinical status, and surgical intervention occurring. ACT Coag (Bld) 472 s [facility] Comment on above: Target ACT range laly l vary based on the patient population, clinical status, and surgical intervention occurring. ACT Coag (Bld) 582 s [facility] Comment on above: Target ACT range laly l vary based on the patient population, clinical status, and surgical intervention occurring. ACT Coag (Bld) [address] [facility] Comment on above: Target ACT range laly l vary based on the patient population, clinical status, and surgical intervention occurring. ACT Coag (Bld) [address] [facility] Comment on above: Target ACT range laly l vary based on the patient population, clinical status, and surgical intervention occurring. 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 The left ventricular cavity size is normal. Left ventricular diastolic filling was not assessed. Left Atrium: The left atrium is enlarged. There is no evidence of a patent foramen ovale. Right Ventricle: The right ventricle is normal in size. There is normal right ventricular global systolic function. Right Atrium: The right atrial size was not assessed. Aortic Valve: The aortic valve is structurally normal. There is no evidence of aortic valve stenosis. There is no evidence of aortic valve regurgitation. Mitral Valve: The mitral valve is abnormal. There is no evidence of mitral valve stenosis. There is severe mitral valve regurgitation. Severe eccentric MR. 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 Tricuspid Valve: The tricuspid valve is abnormal. There is moderate tricuspid regurgitation. Pacer/ICD wires present. Pulmonic Valve: The pulmonic valve is structurally normal. There is no indication of pulmonic valve regurgitation. Pericardium: There is no pericardial effusion noted. Aorta: The aortic root is normal. In comparison to the previous echocardiogram(s): Not performed on intraoperative study. CONCLUSIONS: 1. The left ventricular systolic function is normal with a visually estimated ejection fraction of 55-60%. 2. There is normal right ventricular global systolic function. 3. The left atrium is enlarged. 4. Severe mitral valve regurgitation. 5. Moderate tricuspid regurgitation visualized. POST PROCEDURE REPORT: Patient is being paced. Patient is on no inotropic support. Global LV function is normal. Global RV function is normal. A mitral ring is now seen and is well seated. There is no evidence of mitral stenosis. There is no evidence of systolic anterior motion of the mitral valve. The estimated mitral valve mean gradient is 4 mmHg. 32 mm simuplus ring. No MR. No MS. No evidence of post aortic cannulation dissection. All transesophageal echocardiogram findings discussed with surgeon. QUANTITATIVE DATA SUMMARY: LV SYSTOLIC FUNCTION: Normal Ranges: EF-Visual: 58 % LV EF Reported: 58 % [id number] Yoseph Gutierrez DO Electronically signed on 01/10/2025 at 7:44:15 AM Final CONCLUSIONS: 1. The left ventricular systolic function is normal with a visually estimated ejection fraction of 55-60%. 2. There is normal right ventricular global systolic function. 3. The left atrium is enlarged. 4. Severe mitral valve regurgitation. 5. Moderate tricuspid regurgitation visualized. Normal [facility] Activated clotting timeon ACT Coag (Bld) 112 s Normal 82-174 [facility] Comment on above: Result Comment: Targ et ACT range will vary based on the patient population, clinical status, and surgical intervention occurring. Performed By: #### 3 4529-8 #### SANDRO Jain ([id number]) [facility] ([facility]) [id number] [place] [address] 38650 ACT Coag (Bld) 415 s High 82-174 [facility] Comment on above: Result Comment: Targ et ACT range will vary based on the patient population, clinical status, and surgical intervention occurring. Performed By: #### 3 4529-8 #### SANDRO Jain ([id number]) [facility] ([facility]) [id number] [place] [address] 12642 ACT Coag (Bld) [address] Comment on above: Result Comment: Targ et ACT range will vary based on the patient population, clinical status, and surgical intervention occurring. Performed By: #### 3 4529-8 #### SANDRO Jain ([id number]) [facility] ([facility]) [address] [place] [address] 56968 ACT Coag (Bld) [address] Comment on above: Result Comment: Targ et ACT range will vary based on the patient population, clinical status, and surgical intervention occurring. Performed By: #### 3 4529-8 #### SANDRO Jain ([id number]) [facility] ([facility]) [address] [place] [address] 78468 ACT Coag (Bld) [address] Comment on above: Result Comment: Targ et ACT range will vary based on the patient population, clinical status, and surgical intervention occurring. Performed By: #### 5 8077-9 #### SANDRO Jain ([id number]) [facility] ([facility]) [address] [place] [address] 61752 ACT Coag (Bld) [address] Comment on above: Result Comment: Targ et ACT range will vary based on the patient population, clinical status, and surgical intervention occurring. Performed By: #### 5 8077-9 #### SANDRO Jain ([id number]) [facility] ([facility]) [address] [place] [address] 12625 Blood type and Indirect anti body screen panel (Bld)on 01-09-2025 ABO group Nom (Bld) A [facility] Blood group antibody screen Ql Negative [facility] D Ag Ql (Bld) Positive [facility] ABO group Nom (Bld) A Normal [facility] Comment on above: Performed By: #### 5 8077-9 #### SANDRO Jain ([id number]) [facility] ([facility]) [address] [place] [id number] Blood group antibody screen Ql Negative [facility] Comment on above: Performed By: #### 5 8077-9 #### SANDRO Jain ([id number]) [facility] ([facility]) [address] [place], [place] [id number] D Ag Ql (Bld) Positive [facility] Comment on above: Performed By: #### 5 8077-9 #### SANDRO Jain ([id number]) [facility] ([facility]) [address] [place] [address] CBC panel Auto (d)on 01-09 Erythrocyte distribution width (RBC) [Ratio] 13.1 % 11.5 - 14.5 % [facility] Hematocrit (Bld) [Volume fraction] 36.1 % 36.0 - 46.0 % [facility] Hemoglobin (Bld) [Mass/Vol] 11.6 g/dL Low 12.0 - 16.0 g/dL [facility] Interpretation and review of laboratory results Abnormal [facility] MCH (RBC) [Entitic mass] 28.2 pg 26. 0 - 34.[address] [facility] MCHC (RBC) [Mass/Vol] 32.1 g/dL 32.0 - 36.0 g/dL [facility] MCV (RBC) [Entitic vol] 88 fL 80 - [address] [facility] Nucleated RBC/100 WBC (Bld) [Ratio] 0.0 % [facility] Platelets (Bld) [#/Vol] 109 10*3/uL Low [facility] RBC (Bld) [#/Vol] 4.11 10*6/uL [facility] WBC (Bld) [#/Vol] 22.2 10*3/uL High [facility] Erythrocyte distribution width (RBC) [Ratio] 13.1 % Normal 11.5-14.5 [facility] Comment on above: Order Comment: On ad giovani to ICU Performed By: #### 1 988-5 #### SANDRO Jain ([id number]) [facility] ([facility]) [address] [place] [address] 63714 Hematocrit (Bld) [Volume fraction] 36.1 % Normal 36.0-46.0 [facility] Comment on above: Order Comment: On ad giovani to ICU Performed By: #### 1 988-5 #### SANDRO Jain ([id number]) [facility] ([facility]) [address] [place] [address] 41060 Hemoglobin (Bld) [Mass/Vol] 11.6 g/dL Low 12.0-16.0 [facility] Comment on above: Order Comment: On ad giovani to ICU Performed By: #### 1 988-5 #### SANDRO Jain ([id number]) [facility] ([facility]) [address] [place] [address] 92293 MCH (RBC) [Entitic mass] 28.2 pg Normal 26.0-34.0 [facility] Comment on above: Order Comment: On ad giovani to ICU Performed By: #### 1 988-5 #### SANDRO Jain ([id number]) [facility] ([facility]) [address] [place] [address] 14200 MCHC (RBC) [Mass/Vol] 32.1 g/dL Normal 32.0-36.0 [facility] Comment on above: Order Comment: On ad giovani to ICU Performed By: #### 1 988-5 #### SANDRO Jain ([id number]) [facility] ([facility]) [address] [place] [address] 75124 MCV (RBC) [Entitic vol] 88 fL Normal 80-100 [facility] Comment on above: Order Comment: On ad giovani to ICU Performed By: #### 1 988-5 #### SANDRO Jain ([id number]) [facility] ([facility]) [address] [place] [address] 82099 Nucleated RBC/100 WBC (Bld) [Ratio] 0.0 /100 WBCs Normal 0.0-0.0 [facility] Comment on above: Order Comment: On ad giovani to ICU Performed By: #### 1 988-5 #### SANDRO Jain ([id number]) [facility] ([facility]) [address] [place] [address] 90016 Platelets (Bld) [#/Vol] 109 x10*3/uL Low 150-450 [facility] Comment on above: Order Comment: On ad giovani to ICU Performed By: #### 1 988-5 #### SANDRO Jain ([id number]) [facility] ([facility]) [id number] [place] [address] 65745 RBC (Bld) [#/Vol] 4.11 x10*6/uL Normal 4.00-5.20 [facility] Comment on above: Order Comment: On ad giovani to ICU Performed By: #### 1 988-5 #### SANDRO Jain ([id number]) [facility] ([facility]) [address] [place] [address] 10213 WBC (Bld) [#/Vol] 22.2 x10*3/uL High 4.4-11.3 [facility] Comment on above: Order Comment: On ad giovani to ICU Performed By: #### 1 988-5 #### SANDRO Jain ([id number]) [facility] ([facility]) [address] [place] [address] 30213 Carboxyhemoglobin (BldA) [Ma ss fraction]on 01-09-2025 Deoxyhemoglobin (BldA) [Mass fraction] 1.7 % 0.0 - 5.0 % [facility] Methemoglobin (BldA) [Mass fraction] 0.4 % 0.0 - 1.5 % [facility] Deoxyhemoglobin (BldA) [Mass fraction] 1.7 % Normal 0.0-5.0 [facility] Comment on above: Performed By: #### 1 988-5 #### SANDRO Jain ([id number]) [facility] ([facility]) [address] [place] [address] 85389 Methemoglobin (BldA) [Mass fraction] 0.4 % Normal 0.0-1.5 [facility] Comment on above: Performed By: #### 1 988-5 #### SANDRO Jain ([id number]) [facility] ([facility]) [address] [place] [address] 55042 Deoxyhemoglobin (BldA) [Mass fraction] 0.6 % 0.0 - 5.0 % [facility] Methemoglobin (BldA) [Mass fraction] 0.1 % 0.0 - 1.5 % [facility] Deoxyhemoglobin (BldA) [Mass fraction] 0.6 % Normal 0.0-5.0 [facility] Comment on above: Performed By: #### 3 4529-8 #### SANDRO Jain ([id number]) [facility] ([facility]) [address] [place] [address] 98267 Methemoglobin (BldA) [Mass fraction] 0.1 % Normal 0.0-1.5 [facility] Comment on above: Performed By: #### 3 4529-8 #### SANDRO Jain ([id number]) [facility] ([facility]) [address] [place] [address] 06010 Deoxyhemoglobin (BldA) [Mass fraction] 0.8 % 0.0 - 5.0 % [facility] Methemoglobin (BldA) [Mass fraction] 0.6 % 0.0 - 1.5 % [facility] Deoxyhemoglobin (BldA) [Mass fraction] 0.8 % Normal 0.0-5.0 [facility] Comment on above: Performed By: #### 3 4529-8 #### SANDRO Jain ([id number]) [facility] ([facility]) [address] [place] [address] 25434 Methemoglobin (BldA) [Mass fraction] 0.6 % Normal 0.0-1.5 [facility] Comment on above: Performed By: #### 3 4529-8 #### SANDRO Jain ([id number]) [facility] ([facility]) [address] [place] [address] [place] [address] Deoxyhemoglobin (BldA) [Mass fraction] 0.1 % 0.0 - 5.0 % [facility] Methemoglobin (BldA) [Mass fraction] 0.0 % 0.0 - 1.5 % [facility] Deoxyhemoglobin (BldA) [Mass fraction] 0.1 % Normal 0.0-5.0 [facility] Comment on above: Performed By: #### 3 4529-8 #### SANDRO Jain ([id number]) [facility] ([facility]) [address] [place] [address] 62013 Methemoglobin (BldA) [Mass fraction] 0.0 % Normal 0.0-1.5 [facility] Comment on above: Performed By: #### 3 4529-8 #### SANDRO Jain ([id number]) [facility] ([facility]) [address] [place] [address] 56755 Deoxyhemoglobin (BldA) [Mass fraction] 0.4 % 0.0 - 5.0 % [facility] Methemoglobin (BldA) [Mass fraction] 0.5 % 0.0 - 1.5 % [facility] Deoxyhemoglobin (BldA) [Mass fraction] 0.4 % Normal 0.0-5.0 [facility] Comment on above: Performed By: #### 5 8077-9 #### SANDRO Jain ([id number]) [facility] ([facility]) [address] [place] [address] 41460 Methemoglobin (BldA) [Mass fraction] 0.5 % Normal 0.0-1.5 [facility] Comment on above: Performed By: #### 5 8077-9 #### SANDRO Jain ([id number]) [facility] ([facility]) [address] [place] [address] 86314 Deoxyhemoglobin (BldA) [Mass fraction] 0.7 % 0.0 - 5.0 % [facility] Methemoglobin (BldA) [Mass fraction] 0.4 % 0.0 - 1.5 % [facility] Deoxyhemoglobin (BldA) [Mass fraction] 0.7 % Normal 0.0-5.0 [facility] Comment on above: Performed By: #### 5 8077-9 #### SANDRO Jain ([id number]) [facility] ([facility]) [address] [place] [address] 93554 Methemoglobin (BldA) [Mass fraction] 0.4 % Normal 0.0-1.5 [facility] Comment on above: Performed By: #### 5 8077-9 #### SANDRO Jain ([id number]) [facility] ([facility]) [address] [place] [address] 52126 Deoxyhemoglobin (BldA) [Mass fraction] 0.5 % 0.0 - 5.0 % [facility] Methemoglobin (BldA) [Mass fraction] 0.5 % 0.0 - 1.5 % [facility] Deoxyhemoglobin (BldA) [Mass fraction] 0.5 % Normal 0.0-5.0 [facility] Comment on above: Performed By: #### 2 030-5 #### SANDRO Jain ([id number]) [facility] ([facility]) [address] [place] [address] 82756 Methemoglobin (BldA) [Mass fraction] 0.5 % Normal 0.0-1.5 [facility] Comment on above: Performed By: #### 2 030-5 #### SANDRO Jain ([id number]) [facility] ([facility]) [address] [place] [address] 21982 Carboxyhemoglobin (BldV) [Ma ss fraction]on 01-09-2025 Methemoglobin (BldV) [Mass fraction] 0.0 % 0.0 - 1.5 % [facility] Methemoglobin (BldV) [Mass fraction] 0.0 % Normal 0.0-1.5 [facility] Comment on above: Performed By: #### 5 8077-9 #### SANDRO Jain ([id number]) [facility] ([facility]) [address] [place] [address] 86077 Carboxyhemoglobin/Hemoglobin .totalon 01-09-2025 Carboxyhemoglobin (BldA) [Mass fraction] 1.2 % [facility] Comment on above: Result Comment: Ref Values Non-Smokers 0.5-1.5% Smokers 0.5-10.0% Performed By: #### 1 988-5 #### SANDRO Jain ([id number]) [facility] ([facility]) [address] [place] [address] 36223 Carboxyhemoglobin (BldA) [Mass fraction] 0.8 % [facility] Comment on above: Result Comment: Ref Values Non-Smokers 0.5-1.5% Smokers 0.5-10.0% Performed By: #### 3 4529-8 #### SANDRO Jain ([id number]) [facility] ([facility]) [address] [place] [address] 65164 Carboxyhemoglobin (BldA) [Mass fraction] 0.8 % [facility] Comment on above: Result Comment: Ref Values Non-Smokers 0.5-1.5% Smokers 0.5-10.0% Performed By: #### 3 4529-8 #### SANDRO Jain ([id number]) [facility] ([facility]) [address] [place] [address] 23784 Carboxyhemoglobin (BldA) [Mass fraction] 1.1 % [facility] Comment on above: Result Comment: Ref Values Non-Smokers 0.5-1.5% Smokers 0.5-10.0% Performed By: #### 3 4529-8 #### SANDRO Jain ([id number]) [facility] ([facility]) [address] [place] [address] 29859 Carboxyhemoglobin (BldV) [Mass fraction] 1.3 % [facility] Comment on above: Result Comment: Ref Values Non-Smokers 0.5-1.5% Smokers 0.5-10.0% Performed By: #### 5 8077-9 #### SANDRO Jain ([id number]) [facility] ([facility]) [address] [place] [address] 39918 Carboxyhemoglobin (BldA) [Mass fraction] 0.9 % Normal [facility] Comment on above: Result Comment: Ref Values Non-Smokers 0.5-1.5% Smokers 0.5-10.0% Performed By: #### 5 8077-9 #### SANDRO Jain ([id number]) [facility] ([facility]) [address] [place] [address] 59672 Carboxyhemoglobin (BldA) [Mass fraction] 0.8 % Normal [facility] Comment on above: Result Comment: Ref Values Non-Smokers 0.5-1.5% Smokers 0.5-10.0% Performed By: #### 5 8077-9 #### SANDRO Jain ([id number]) [facility] ([facility]) [address] [place] [address] 60645 Carboxyhemoglobin (BldA) [Mass fraction] 1.0 % Normal [facility] Comment on above: Result Comment: Ref Values Non-Smokers 0.5-1.5% Smokers 0.5-10.0% Performed By: #### 2 030-5 #### SANDRO Jain ([id number]) [facility] ([facility]) [address] [place] [address] 11990 Coox Panel, Arterial Unsolic itedon 01-09-2025 Carboxyhemoglobin (BldA) [Mass fraction] 1.2 % [facility] Carboxyhemoglobin (BldA) [Mass fraction] 0.8 % [facility] Carboxyhemoglobin (BldA) [Mass fraction] 0.8 % [facility] Carboxyhemoglobin (BldA) [Mass fraction] 1.1 % [facility] Carboxyhemoglobin (BldA) [Mass fraction] 0.9 % [facility] Carboxyhemoglobin (BldA) [Mass fraction] 0.8 % [facility] Carboxyhemoglobin (BldA) [Mass fraction] 1.0 % [facility] Coox Panel, Venous Unsolicit edon 01-09-2025 Carboxyhemoglobin (BldV) [Mass fraction] 1.3 % [facility] Fibrinogenon 01-09-2025 Fibrinogen Coag (PPP) [Mass/Vol] 158 mg/dL Low 200 - 400 mg/dL [facility] Fibrinogen Coag (PPP) [Mass/Vol] 158 mg/dL Low 200-400 [facility] Comment on above: Order Comment: On ad giovani to ICU Performed By: #### 1 988-5 #### SANDRO Jain ([id number]) [facility] ([facility]) [address] [place], [place] [address] Funguson 01-09-2025 Fungus identified Cx Nom (Unsp spec) Test: Fungal Culture/Smear Specimen Source: THROMBUS (CLOT) Specimen Type: Tissue Specimen Date: 01/09/2025914 Result Date: 01/15/20251048 Result Status: Preliminary result Resulting Lab: [facility] [address] [place] [address] CULTURE Culture in progress, a report will be issued when positive or after 2 weeks of incubation. STAIN No fungal elements seen Normal [facility] Comment on above: Performed By: #### 2 4323-8 #### SANDRO Jain ([id number]) [facility] ([facility]) [address] [place] [address] Gason 01-09-2025 Hemoglobin (Bld) [Mass/Vol] 11.0 g/dL Low 12.0-16.0 [facility] Comment on above: Performed By: #### 1 988-5 #### SANDRO Jain ([id number]) [facility] ([facility]) [address] [place], [place] [address] Oxyhemoglobin (BldA) [Mass fraction] 96.7 % Normal 94.0-98.0 [facility] Comment on above: Performed By: #### 1 988-5 #### SANDRO Jain ([id number]) [facility] ([facility]) [address] [place], [place] [address] Hemoglobin (Bld) [Mass/Vol] 8.6 g/dL Low 12.0-16.0 [facility] Comment on above: Performed By: #### 3 4529-8 #### SANDRO Jain ([id number]) [facility] ([facility]) [id number] [place] [address] 59686 Oxyhemoglobin (BldA) [Mass fraction] 98.5 % High 94.0-98.0 [facility] Comment on above: Performed By: #### 3 4529-8 #### SANDRO Jain ([id number]) [facility] ([facility]) [address] [place] [address] 17430 Hemoglobin (Bld) [Mass/Vol] 10.7 g/dL Low 12.0-16.0 [facility] Comment on above: Performed By: #### 3 4529-8 #### SANDRO Jain ([id number]) [facility] ([facility]) [address] [place] [address] 53834 Oxyhemoglobin (BldA) [Mass fraction] 97.8 % Normal 94.0-98.0 [facility] Comment on above: Performed By: #### 3 4529-8 #### SANDRO Jain ([id number]) [facility] ([facility]) [address] [place] [address] 74345 Hemoglobin (Bld) [Mass/Vol] 10.5 g/dL Low 12.0-16.0 [facility] Comment on above: Performed By: #### 3 4529-8 #### SANDRO Jain ([id number]) [facility] ([facility]) [address] [place] [address] 28932 Oxyhemoglobin (BldA) [Mass fraction] 98.8 % High 94.0-98.0 [facility] Comment on above: Performed By: #### 3 4529-8 #### SANDRO Jain ([id number]) [facility] ([facility]) [address] [place] [address] 55037 Hemoglobin (Bld) [Mass/Vol] 11.4 g/dL Low 12.0-16.0 [facility] Comment on above: Performed By: #### 5 8077-9 #### SANDRO FELIX L ([id number]) [facility] ([facility]) [address] [place] [address] 56999 Oxyhemoglobin (BldA) [Mass fraction] 98.2 % High 94.0-98.0 [facility] Comment on above: Performed By: #### 5 8077-9 #### SANDRO FELIX L ([id number]) [facility] ([facility]) [address] [place] [address] 39310 Hemoglobin (Bld) [Mass/Vol] 13.1 g/dL Normal 12.0-16.0 [facility] Comment on above: Performed By: #### 5 8077-9 #### SANDRO FELIX L ([id number]) [facility] ([facility]) [address] [place] [address] 38680 Oxyhemoglobin (BldA) [Mass fraction] 98.1 % High 94.0-98.0 [facility] Comment on above: Performed By: #### 5 8077-9 #### SANDRO FELIX L ([id number]) [facility] ([facility]) [address] [place] [address] 89261 Hemoglobin (Bld) [Mass/Vol] 13.3 g/dL Normal 12.0-16.0 [facility] Comment on above: Performed By: #### 9 3685-6 #### SANDRO FELIX L ([id number]) [facility] ([facility]) [address] [place] [address] 40466 Performed By: #### 2 030-5 #### SANDRO DE DIOSTZER L ([id number]) [facility] ([facility]) [address] [place] [address] 27532 Oxyhemoglobin (BldA) [Mass fraction] 98.1 % High 94.0-98.0 [facility] Comment on above: Performed By: #### 9 3685-6 #### SANDRO KISERMOTZER L ([id number]) [facility] ([facility]) [address] [place] [id number] Performed By: #### 2 030-5 #### SANDRO ELVIRA Jain ([id number]) [facility] ([facility]) [address] [place] [address] Gas and Carbon monoxide and Electrolytes panel (BldA)on 01-09-2025 Anion gap 4 (BldA) [Moles/Vol] [address] [facility] Base excess Calc (Bld) [Moles/Vol] -4.9000 mmol/L Low -2.0 - 3.0 mmol/L [facility] [facility] Calcium.ionized (BldA) [Moles/Vol] 1.05 mmol/L Low 1.10 - 1.33 mmol/L [facility] Chloride (BldA) [Moles/Vol] 107 mmol/L 98 - 107 mmol/L [facility] CO2 (Bld) [Partial pressure] 39 mm[Hg] [facility] Glucose [Mass/Vol] 204 mg/dL High 74 - 99 mg/dL [facility] HCO3 (Bld) [Moles/Vol] 20.6 mmol/L Low 22.0 - 26.0 mmol/L [facility] Hematocrit Est (Bld) [Volume fraction] 39.0 % 36.0 - 46.0 % [facility] Hemoglobin (Bld) [Mass/Vol] 13.0 g/dL 12.0 - 16.0 g/dL [facility] Inhaled oxygen concentration 40 % [facility] Interpretation and review of laboratory results Abnormal [facility] Lactate (BldA) [Moles/Vol] 1.3 mmol/L 0.4 - 2.0 mmol/L [facility] Oxygen (Bld) [Partial pressure] 169 mm[Hg] High [facility] Oxyhemoglobin (BldA) [Mass fraction] 97.6 % 94.0 - 98.0 % [facility] pH (Bld) 7.33 [pH] Low 7.38 - 7.[address] [facility] Potassium (BldA) [Moles/Vol] 4.1 mmol/L 3.5 - 5.3 mmol/L [facility] Sodium (BldA) [Moles/Vol] 135 mmol/L Low 136 - 145 mmol/L [facility] Anion gap 4 (BldA) [Moles/Vol] 12 mmo/L Normal 10-25 [facility] Comment on above: Performed By: #### 2 4323-8 #### SANDRO Jain ([id number]) [facility] ([facility]) [id number] [place] [address] 34787 Base excess Calc (Bld) [Moles/Vol] -4.9000 mmol/L Low -2.0-3.0 [facility] Comment on above: Performed By: #### 2 4323-8 #### SANDRO Jain ([id number]) [facility] ([facility]) [id number] [place] [address] 32328 Calcium.ionized (BldA) [Moles/Vol] 1.05 mmol/L Low 1.10-1.33 [facility] Comment on above: Performed By: #### 2 4323-8 #### SANDRO Jain ([id number]) [facility] ([facility]) [id number] [place] [address] 35627 Chloride (BldA) [Moles/Vol] 107 mmol/L Normal 98-107 [facility] Comment on above: Performed By: #### 2 4323-8 #### SANDRO Jain ([id number]) [facility] ([facility]) [id number] [place] [address] 67144 CO2 (Bld) [Partial pressure] 39 mm Hg Normal 38-42 [facility] Comment on above: Performed By: #### 2 4323-8 #### SANDRO Jain ([id number]) [facility] ([facility]) [address] [place] [address] 52077 Glucose [Mass/Vol] 204 mg/dL High 74-99 [facility] Comment on above: Performed By: #### 2 4323-8 #### SANDRO Jain ([id number]) [facility] ([facility]) [id number] [place] [address] 26667 HCO3 (Bld) [Moles/Vol] 20.6 mmol/L Low 22.0-26.0 [facility] Comment on above: Performed By: #### 2 4323-8 #### SANDRO Jain ([id number]) [facility] ([facility]) [address] [place] [address] 86838 Hematocrit Est (Bld) [Volume fraction] 39.0 % Normal 36.0-46.0 [facility] Comment on above: Performed By: #### 2 4323-8 #### SANDRO Jain ([id number]) [facility] ([facility]) [address] [place] [address] 70591 Hemoglobin (Bld) [Mass/Vol] 13.0 g/dL Normal 12.0-16.0 [facility] Comment on above: Performed By: #### 2 432-8 #### SANDRO Jain ([id number]) [facility] ([facility]) [address] [place] [address] 52872 Inhaled oxygen concentration 40 % Normal [facility] Comment on above: Performed By: #### 2 432-8 #### SANDRO Jain ([id number]) [facility] ([facility]) [address] [place] [address] 63657 Lactate (BldA) [Moles/Vol] 1.3 mmol/L Normal 0.4-2.0 [facility] Comment on above: Performed By: #### 2 4323-8 #### SANDRO Jain ([id number]) [facility] ([facility]) [address] [place] [address] 18299 Oxygen (Bld) [Partial pressure] 169 mm Hg High 85-95 [facility] Comment on above: Performed By: #### 2 432-8 #### SANDRO Jain ([id number]) [facility] ([facility]) [address] [place] [address] 70610 Oxyhemoglobin (BldA) [Mass fraction] 97.6 % Normal 94.0-98.0 [facility] Comment on above: Performed By: #### 2 4323-8 #### SANDRO Jain ([id number]) [facility] ([facility]) [address] [place] [address] pH (Bld) 7.33 [pH] Low 7.38-7.42 [facility] Comment on above: Performed By: #### 2 4323-8 #### SANDRO Jain ([id number]) [facility] ([facility]) [id number] [place] [address] 40532 Potassium (BldA) [Moles/Vol] 4.1 mmol/L Normal 3.5-5.3 [facility] Comment on above: Performed By: #### 2 4323-8 #### SANDRO Jain ([id number]) [facility] ([facility]) [address] [place] [address] 00713 Sodium (BldA) [Moles/Vol] 135 mmol/L Low 136-145 [facility] Comment on above: Performed By: #### 2 4323-8 #### SANDRO Jain ([id number]) [facility] ([facility]) [address] [place] [address] 33490 Anion gap 4 (BldA) [Moles/Vol] [address] [facility] Base excess Calc (Bld) [Moles/Vol] -4.4000 mmol/L Low -2.0 - 3.0 mmol/L [facility] Calcium.ionized (BldA) [Moles/Vol] 1.10 mmol/L 1.10 - 1.33 mmol/L [facility] Chloride (BldA) [Moles/Vol] 107 mmol/L 98 - 107 mmol/L [facility] CO2 (Bld) [Partial pressure] 39 mm[Hg] [facility] Glucose [Mass/Vol] 207 mg/dL High 74 - 99 mg/dL [facility] HCO3 (Bld) [Moles/Vol] 21.0 mmol/L Low 22.0 - 26.0 mmol/L [facility] Hematocrit Est (Bld) [Volume fraction] 42.0 % 36.0 - 46.0 % [facility] Hemoglobin (Bld) [Mass/Vol] 13.9 g/dL 12.0 - 16.0 g/dL [facility] Inhaled oxygen concentration 40 % [facility] Interpretation and review of laboratory results Abnormal [facility] Lactate (BldA) [Moles/Vol] 1.5 mmol/L 0.4 - 2.0 mmol/L [facility] Oxygen (Bld) [Partial pressure] 168 mm[Hg] High [facility] Oxyhemoglobin (BldA) [Mass fraction] 97.5 % 94.0 - 98.0 % [facility] pH (Bld) 7.34 [pH] Low 7.38 - 7.[address] [facility] Potassium (BldA) [Moles/Vol] 4.6 mmol/L 3.5 - 5.3 mmol/L [facility] Sodium (BldA) [Moles/Vol] 133 mmol/L Low 136 - 145 mmol/L [facility] Anion gap 4 (BldA) [Moles/Vol] 10 mmo/L Normal 10-25 [facility] Comment on above: Performed By: #### 2 4323-8 #### SANDRO Jain ([id number]) [facility] ([facility]) [address] [place] [address] 13720 Base excess Calc (Bld) [Moles/Vol] -4.4000 mmol/L Low -2.0-3.0 [facility] Comment on above: Performed By: #### 2 4323-8 #### SANDRO Jain ([id number]) [facility] ([facility]) [address] [place] [address] 43785 Calcium.ionized (BldA) [Moles/Vol] 1.10 mmol/L Normal 1.10-1.33 [facility] Comment on above: Performed By: #### 2 4323-8 #### SANDRO Jain ([id number]) [facility] ([facility]) [address] [place] [address] 96185 Chloride (BldA) [Moles/Vol] 107 mmol/L Normal 98-107 [facility] Comment on above: Performed By: #### 2 4323-8 #### SANDRO Jain ([id number]) [facility] ([facility]) [address] [place] [address] CO2 (Bld) [Partial pressure] 39 mm Hg Normal 38-42 [facility] Comment on above: Performed By: #### 2 4323-8 #### SANDRO Jain ([id number]) [facility] ([facility]) [address] [place] [address] 48143 Glucose [Mass/Vol] 207 mg/dL High 74-99 [facility] Comment on above: Performed By: #### 2 4323-8 #### SANDRO Jain ([id number]) [facility] ([facility]) [address] [place] [address] 47657 HCO3 (Bld) [Moles/Vol] 21.0 mmol/L Low 22.0-26.0 [facility] Comment on above: Performed By: #### 2 4323-8 #### SANDRO Jain ([id number]) [facility] ([facility]) [address] [place] [address] 45893 Hematocrit Est (Bld) [Volume fraction] 42.0 % Normal 36.0-46.0 [facility] Comment on above: Performed By: #### 2 4323-8 #### SANDRO Jain ([id number]) [facility] ([facility]) [address] [place] [address] 01011 Hemoglobin (Bld) [Mass/Vol] 13.9 g/dL Normal 12.0-16.0 [facility] Comment on above: Performed By: #### 2 4323-8 #### SANDRO Jain ([id number]) [facility] ([facility]) [address] [place] [address] 96823 Inhaled oxygen concentration 40 % Normal [facility] Comment on above: Performed By: #### 2 4323-8 #### SANDRO Jain ([id number]) [facility] ([facility]) [address] [place] [address] 38800 Lactate (BldA) [Moles/Vol] 1.5 mmol/L Normal 0.4-2.0 [facility] Comment on above: Performed By: #### 2 4323-8 #### SANDRO Jain ([id number]) [facility] ([facility]) [address] [place] [address] 25723 Oxygen (Bld) [Partial pressure] 168 mm Hg High 85-95 [facility] Comment on above: Performed By: #### 2 4323-8 #### SANDRO Jain ([id number]) [facility] ([facility]) [address] [place] [address] 50065 Oxyhemoglobin (BldA) [Mass fraction] 97.5 % Normal 94.0-98.0 [facility] Comment on above: Performed By: #### 2 4323-8 #### SANDRO Jain ([id number]) [facility] ([facility]) [address] [place] [address] 91632 pH (Bld) 7.34 [pH] Low 7.38-7.42 [facility] Comment on above: Performed By: #### 2 4323-8 #### SANDRO Jain ([id number]) [facility] ([facility]) [address] [place] [address] 36353 Potassium (BldA) [Moles/Vol] 4.6 mmol/L Normal 3.5-5.3 [facility] Comment on above: Performed By: #### 2 4323-8 #### SANDRO Jain ([id number]) [facility] ([facility]) [address] [place] [address] 32008 Sodium (BldA) [Moles/Vol] 133 mmol/L Low 136-145 [facility] Comment on above: Performed By: #### 2 4323-8 #### SANDRO Jain ([id number]) [facility] ([facility]) [address] [place] [address] 02529 Anion gap 4 (BldA) [Moles/Vol] [address] [facility] Base excess Calc (Bld) [Moles/Vol] -1.8000 mmol/L -2.0 - 3.0 mmol/L [facility] Calcium.ionized (BldA) [Moles/Vol] 1.16 mmol/L 1.10 - 1.33 mmol/L [facility] Chloride (BldA) [Moles/Vol] 107 mmol/L 98 - 107 mmol/L [facility] CO2 (Bld) [Partial pressure] 33 mm[Hg] Low [facility] Glucose [Mass/Vol] 125 mg/dL High 74 - 99 mg/dL [facility] HCO3 (Bld) [Moles/Vol] 21.9 mmol/L Low 22.0 - 26.0 mmol/L [facility] Hematocrit Est (Bld) [Volume fraction] 38.0 % 36.0 - 46.0 % [facility] Hemoglobin (Bld) [Mass/Vol] 12.5 g/dL 12.0 - 16.0 g/dL [facility] Inhaled oxygen concentration 50 % [facility] Interpretation and review of laboratory results Abnormal [facility] Lactate (BldA) [Moles/Vol] 1.3 mmol/L 0.4 - 2.0 mmol/L [facility] Oxygen (Bld) [Partial pressure] 163 mm[Hg] High [facility] Oxyhemoglobin (BldA) [Mass fraction] 97.5 % 94.0 - 98.0 % [facility] pH (Bld) 7.43 [pH] High 7.38 - 7.[address] [facility] Potassium (BldA) [Moles/Vol] 4.5 mmol/L 3.5 - 5.3 mmol/L [facility] Sodium (BldA) [Moles/Vol] 134 mmol/L Low 136 - 145 mmol/L [facility] Anion gap 4 (BldA) [Moles/Vol] 10 mmo/L Normal 10-25 [facility] Comment on above: Performed By: #### 1 988-5 #### SANDRO Jain ([id number]) [facility] ([facility]) [id number] [place] [address] Base excess Calc (Bld) [Moles/Vol] -1.8000 mmol/L Normal -2.0-3.0 [facility] Comment on above: Performed By: #### 1 988-5 #### SANDRO Jani ([id number]) [facility] ([facility]) [address] [place] [address] 27321 Calcium.ionized (BldA) [Moles/Vol] 1.16 mmol/L Normal 1.10-1.33 [facility] Comment on above: Performed By: #### 1 988-5 #### SANDRO FELIX L ([id number]) [facility] ([facility]) [address] [place] [address] 62901 Chloride (BldA) [Moles/Vol] 107 mmol/L Normal 98-107 [facility] Comment on above: Performed By: #### 1 988-5 #### SANDRO FELIX L ([id number]) [facility] ([facility]) [address] [place] [address] 30387 CO2 (Bld) [Partial pressure] 33 mm Hg Low 38-42 [facility] Comment on above: Performed By: #### 1 988-5 #### SANDRO FELIX L ([id number]) [facility] ([facility]) [address] [place] [address] 06026 Glucose [Mass/Vol] 125 mg/dL High 74-99 [facility] Comment on above: Performed By: #### 1 988-5 #### SANDRO FELIX L ([id number]) [facility] ([facility]) [address] [place] [address] 06898 HCO3 (Bld) [Moles/Vol] 21.9 mmol/L Low 22.0-26.0 [facility] Comment on above: Performed By: #### 1 988-5 #### SANDRO FELIX L ([id number]) [facility] ([facility]) [address] [place] [address] 35926 Hematocrit Est (Bld) [Volume fraction] 38.0 % Normal 36.0-46.0 [facility] Comment on above: Performed By: #### 1 988-5 #### SANDRO FELIX L ([id number]) [facility] ([facility]) [id number] [place] [address] 99927 Hemoglobin (Bld) [Mass/Vol] 12.5 g/dL Normal 12.0-16.0 [facility] Comment on above: Performed By: #### 1 988-5 #### SANDRO Jain ([id number]) [facility] ([facility]) [address] [place] [address] 61537 Inhaled oxygen concentration 50 % Normal [facility] Comment on above: Performed By: #### 1 988-5 #### SANDRO Jian ([id number]) [facility] ([facility]) [address] [place] [address] 49343 Lactate (BldA) [Moles/Vol] 1.3 mmol/L Normal 0.4-2.0 [facility] Comment on above: Performed By: #### 1 988-5 #### SANDRO Jain ([id number]) [facility] ([facility]) [address] [place] [address] 98793 Oxygen (Bld) [Partial pressure] 163 mm Hg High 85-95 [facility] Comment on above: Performed By: #### 1 988-5 #### SANDRO Jain ([id number]) [facility] ([facility]) [address] [place] [address] 55011 Oxyhemoglobin (BldA) [Mass fraction] 97.5 % Normal 94.0-98.0 [facility] Comment on above: Performed By: #### 1 988-5 #### SANDRO Jain ([id number]) [facility] ([facility]) [address] [place] [address] 73852 pH (Bld) 7.43 [pH] High 7.38-7.42 [facility] Comment on above: Performed By: #### 1 988-5 #### SANDRO Jain ([id number]) [facility] ([facility]) [address] [place] [address] 16786 Potassium (BldA) [Moles/Vol] 4.5 mmol/L Normal 3.5-5.3 [facility] Comment on above: Performed By: #### 1 988-5 #### SANDRO Jain ([id number]) [facility] ([facility]) [address] [place] [address] Sodium (BldA) [Moles/Vol] 134 mmol/L Low 136-145 [facility] Comment on above: Performed By: #### 1 988-5 #### SANDRO Jain ([id number]) [facility] ([facility]) [address] [place] [address] 82526 Anion gap 4 (BldA) [Moles/Vol] [address] [facility] Base excess Calc (Bld) [Moles/Vol] -1.5000 mmol/L -2.0 - 3.0 mmol/L [facility] Calcium.ionized (BldA) [Moles/Vol] 1.12 mmol/L 1.10 - 1.33 mmol/L [facility] Chloride (BldA) [Moles/Vol] 107 mmol/L 98 - 107 mmol/L [facility] CO2 (Bld) [Partial pressure] 41 mm[Hg] [facility] Glucose [Mass/Vol] 140 mg/dL High 74 - 99 mg/dL [facility] HCO3 (Bld) [Moles/Vol] 23.7 mmol/L 22.0 - 26.0 mmol/L [facility] Hematocrit Est (Bld) [Volume fraction] 33.0 % Low 36.0 - 46.0 % [facility] Inhaled oxygen concentration 100 % [facility] Lactate (BldA) [Moles/Vol] 2.1 mmol/L High 0.4 - 2.0 mmol/L [facility] Oxygen (Bld) [Partial pressure] 97 mm[Hg] High [facility] pH (Bld) 7.37 [pH] Low 7.38 - 7.[address] [facility] Potassium (BldA) [Moles/Vol] 3.7 mmol/L 3.5 - 5.3 mmol/L [facility] Sodium (BldA) [Moles/Vol] 135 mmol/L Low 136 - 145 mmol/L [facility] Anion gap 4 (BldA) [Moles/Vol] 8 mmo/L Low 10-25 [facility] Comment on above: Performed By: #### 1 988-5 #### SANDRO Jain ([id number]) [facility] ([facility]) [address] [place] [address] 66046 Base excess Calc (Bld) [Moles/Vol] -1.5000 mmol/L Normal -2.0-3.0 [facility] Comment on above: Performed By: #### 1 988-5 #### SANDRO Jain ([id number]) [facility] ([facility]) [address] [place] [address] 55654 Calcium.ionized (BldA) [Moles/Vol] 1.12 mmol/L Normal 1.10-1.33 [facility] Comment on above: Performed By: #### 1 988-5 #### SANDRO Jain ([id number]) [facility] ([facility]) [address] [place] [address] 52909 Chloride (BldA) [Moles/Vol] 107 mmol/L Normal 98-107 [facility] Comment on above: Performed By: #### 1 988-5 #### SANDRO Jain ([id number]) [facility] ([facility]) [address] [place] [address] 71247 CO2 (Bld) [Partial pressure] 41 mm Hg Normal 38-42 [facility] Comment on above: Performed By: #### 1 988-5 #### SANDRO Jain ([id number]) [facility] ([facility]) [address] [place] [address] 87311 Glucose [Mass/Vol] 140 mg/dL High 74-99 [facility] Comment on above: Performed By: #### 1 988-5 #### SANDRO Jain ([id number]) [facility] ([facility]) [address] [place] [address] 93279 HCO3 (Bld) [Moles/Vol] 23.7 mmol/L Normal 22.0-26.0 [facility] Comment on above: Performed By: #### 1 988-5 #### SANDRO Jain ([id number]) [facility] ([facility]) [id number] [place] [address] 68858 Hematocrit Est (Bld) [Volume fraction] 33.0 % Low 36.0-46.0 [facility] Comment on above: Performed By: #### 1 988-5 #### SANDRO FELIX L ([id number]) [facility] ([facility]) [address] [place] [address] 63610 Inhaled oxygen concentration 100 % Normal [facility] Comment on above: Performed By: #### 1 988-5 #### SANDRO Jain ([id number]) [facility] ([facility]) [address] [place] [address] 09027 Lactate (BldA) [Moles/Vol] 2.1 mmol/L High 0.4-2.0 [facility] Comment on above: Performed By: #### 1 988-5 #### SANDRO FELIX L ([id number]) [facility] ([facility]) [address] [place] [address] 68349 Oxygen (Bld) [Partial pressure] 97 mm Hg High 85-95 [facility] Comment on above: Performed By: #### 1 988-5 #### SANDRO FELIX L ([id number]) [facility] ([facility]) [address] [place] [address] 70894 pH (Bld) 7.37 [pH] Low 7.38-7.42 [facility] Comment on above: Performed By: #### 1 988-5 #### SANDRO FELIX L ([id number]) [facility] ([facility]) [address] [place] [address] 63903 Potassium (BldA) [Moles/Vol] 3.7 mmol/L Normal 3.5-5.3 [facility] Comment on above: Performed By: #### 1 988-5 #### SANDRO FELIX L ([id number]) [facility] ([facility]) [address] [place] [address] 26080 Sodium (BldA) [Moles/Vol] 135 mmol/L Low 136-145 [facility] Comment on above: Performed By: #### 1 988-5 #### SANDRO Jain ([id number]) [facility] ([facility]) [id number] [place] [address] 34394 Anion gap 4 (BldA) [Moles/Vol] [address] [facility] Base excess Calc (Bld) [Moles/Vol] -2.0000 mmol/L -2.0 - 3.0 mmol/L [facility] Calcium.ionized (BldA) [Moles/Vol] 1.17 mmol/L 1.10 - 1.33 mmol/L [facility] Chloride (BldA) [Moles/Vol] 106 mmol/L 98 - 107 mmol/L [facility] CO2 (Bld) [Partial pressure] 44 mm[Hg] High [facility] Glucose [Mass/Vol] 157 mg/dL High 74 - 99 mg/dL [facility] HCO3 (Bld) [Moles/Vol] 23.7 mmol/L 22.0 - 26.0 mmol/L [facility] Hematocrit Est (Bld) [Volume fraction] 26.0 % Low 36.0 - 46.0 % [facility] Inhaled oxygen concentration 100 % [facility] Lactate (BldA) [Moles/Vol] 2.1 mmol/L High 0.4 - 2.0 mmol/L [facility] Oxygen (Bld) [Partial pressure] 221 mm[Hg] High [facility] pH (Bld) 7.34 [pH] Low 7.38 - 7.[address] [facility] Potassium (BldA) [Moles/Vol] 3.8 mmol/L 3.5 - 5.3 mmol/L [facility] Sodium (BldA) [Moles/Vol] 135 mmol/L Low 136 - 145 mmol/L [facility] Anion gap 4 (BldA) [Moles/Vol] 9 mmo/L Low 10-25 [facility] Comment on above: Performed By: #### 3 [id number] #### SANDRO Jain ([id number]) [facility] [facility] ([facility]) [address] [place] [address] Base excess Calc (Bld) [Moles/Vol] -2.0000 mmol/L Normal -2.0-3.0 [facility] Comment on above: Performed By: #### 3 4529-8 #### SANDRO Jain ([id number]) [facility] ([facility]) [address] [place] [address] Calcium.ionized (BldA) [Moles/Vol] 1.17 mmol/L Normal 1.10-1.33 [facility] Comment on above: Performed By: #### 3 4529-8 #### SANDRO Jain ([id number]) [facility] ([facility]) [id number] [place] [address] 27185 Chloride (BldA) [Moles/Vol] 106 mmol/L Normal 98-107 [facility] Comment on above: Performed By: #### 3 4529-8 #### SANDRO Jain ([id number]) [facility] ([facility]) [id number] [place] [address] 57740 CO2 (Bld) [Partial pressure] 44 mm Hg High 38-42 [facility] Comment on above: Performed By: #### 3 4529-8 #### SANDRO Jain ([id number]) [facility] ([facility]) [address] [place] [address] 78874 Glucose [Mass/Vol] 157 mg/dL High 74-99 [facility] Comment on above: Performed By: #### 3 4529-8 #### SANDRO Jain ([id number]) [facility] ([facility]) [id number] [place] [address] 91550 HCO3 (Bld) [Moles/Vol] 23.7 mmol/L Normal 22.0-26.0 [facility] Comment on above: Performed By: #### 3 4529-8 #### SANDRO Jain ([id number]) [facility] ([facility]) [id number] [place] [address] 83993 Hematocrit Est (Bld) [Volume fraction] 26.0 % Low 36.0-46.0 [facility] Comment on above: Performed By: #### 3 4529-8 #### SANDRO Jain ([id number]) [facility] ([facility]) [address] [place] [address] 97819 Inhaled oxygen concentration 100 % Normal [facility] Comment on above: Performed By: #### 3 4529-8 #### SANDRO Jain ([id number]) [facility] ([facility]) [address] [place] [address] 22873 Lactate (BldA) [Moles/Vol] 2.1 mmol/L High 0.4-2.0 [facility] Comment on above: Performed By: #### 3 4529-8 #### SANDRO Jain ([id number]) [facility] ([facility]) [address] [place] [address] 16320 Oxygen (Bld) [Partial pressure] 221 mm Hg High 85-95 [facility] Comment on above: Performed By: #### 3 4529-8 #### SANDRO Jain ([id number]) [facility] ([facility]) [address] [place] [address] 03255 pH (Bld) 7.34 [pH] Low 7.38-7.42 [facility] Comment on above: Performed By: #### 3 4529-8 #### SANDRO Jain ([id number]) [facility] ([facility]) [address] [place] [address] 73481 Potassium (BldA) [Moles/Vol] 3.8 mmol/L Normal 3.5-5.3 [facility] Comment on above: Performed By: #### 3 4529-8 #### SANDRO Jain ([id number]) [facility] ([facility]) [address] [place] [address] 09527 Sodium (BldA) [Moles/Vol] 135 mmol/L Low 136-145 [facility] Comment on above: Performed By: #### 3 4529-8 #### SANDRO Jain ([id number]) [facility] ([facility]) [address] [place] [address] Anion gap 4 (BldA) [Moles/Vol] [address] [facility] Base excess Calc (Bld) [Moles/Vol] -0.2000 mmol/L -2.0 - 3.0 mmol/L [facility] Calcium.ionized (BldA) [Moles/Vol] 0.99 mmol/L Low 1.10 - 1.33 mmol/L [facility] Chloride (BldA) [Moles/Vol] 105 mmol/L 98 - 107 mmol/L [facility] CO2 (Bld) [Partial pressure] 48 mm[Hg] High [facility] Glucose [Mass/Vol] 181 mg/dL High 74 - 99 mg/dL [facility] HCO3 (Bld) [Moles/Vol] 25.9 mmol/L 22.0 - 26.0 mmol/L [facility] Hematocrit Est (Bld) [Volume fraction] 32.0 % Low 36.0 - 46.0 % [facility] Inhaled oxygen concentration 80 % [facility] Lactate (BldA) [Moles/Vol] 1.2 mmol/L 0.4 - 2.0 mmol/L [facility] Oxygen (Bld) [Partial pressure] 270 mm[Hg] High [facility] pH (Bld) 7.34 [pH] Low 7.38 - 7.[address] [facility] Potassium (BldA) [Moles/Vol] 4.2 mmol/L 3.5 - 5.3 mmol/L [facility] Sodium (BldA) [Moles/Vol] 136 mmol/L 136 - 145 mmol/L [facility] Anion gap 4 (BldA) [Moles/Vol] 9 mmo/L Low 10-25 [facility] Comment on above: Performed By: #### 3 4529-8 #### SANDRO Jain ([id number]) [facility] ([facility]) [address] [place] [address] Base excess Calc (Bld) [Moles/Vol] -0.2000 mmol/L Normal -2.0-3.0 [facility] Comment on above: Performed By: #### 3 4529-8 #### SANDRO Jain ([id number]) [facility] ([facility]) [address] [place] [address] 71999 Calcium.ionized (BldA) [Moles/Vol] 0.99 mmol/L Low 1.10-1.33 [facility] Comment on above: Performed By: #### 3 4529-8 #### SANDRO Jain ([id number]) [facility] ([facility]) [address] [place] [address] 15246 Chloride (BldA) [Moles/Vol] 105 mmol/L Normal 98-107 [facility] Comment on above: Performed By: #### 3 4529-8 #### SANDRO Jain ([id number]) [facility] ([facility]) [address] [place] [address] 84501 CO2 (Bld) [Partial pressure] 48 mm Hg High 38-42 [facility] Comment on above: Performed By: #### 3 4529-8 #### SANDRO Jain ([id number]) [facility] ([facility]) [address] [place] [address] 32382 Glucose [Mass/Vol] 181 mg/dL High 74-99 [facility] Comment on above: Performed By: #### 3 4529-8 #### SANDRO Jain ([id number]) [facility] ([facility]) [address] [place] [address] 24169 HCO3 (Bld) [Moles/Vol] 25.9 mmol/L Normal 22.0-26.0 [facility] Comment on above: Performed By: #### 3 4529-8 #### SANDRO Jain ([id number]) [facility] ([facility]) [address] [place] [address] 25005 Hematocrit Est (Bld) [Volume fraction] 32.0 % Low 36.0-46.0 [facility] Comment on above: Performed By: #### 3 4529-8 #### SANDRO Jain ([id number]) [facility] ([facility]) [address] [place] [address] 09066 Inhaled oxygen concentration 80 % Normal [facility] Comment on above: Performed By: #### 3 4529-8 #### SANDRO Jain ([id number]) [facility] ([facility]) [address] [place] [address] 69362 Lactate (BldA) [Moles/Vol] 1.2 mmol/L Normal 0.4-2.0 [facility] Comment on above: Performed By: #### 3 4529-8 #### SANDRO Jain ([id number]) [facility] ([facility]) [address] [place] [address] 98531 Oxygen (Bld) [Partial pressure] 270 mm Hg High 85-95 [facility] Comment on above: Performed By: #### 3 4529-8 #### SANDRO Jain ([id number]) [facility] ([facility]) [address] [place] [address] 52883 pH (Bld) 7.34 [pH] Low 7.38-7.42 [facility] Comment on above: Performed By: #### 3 4529-8 #### SANDRO Jain ([id number]) [facility] ([facility]) [address] [place] [address] 78928 Potassium (BldA) [Moles/Vol] 4.2 mmol/L Normal 3.5-5.3 [facility] Comment on above: Performed By: #### 3 4529-8 #### SANDRO Jain ([id number]) [facility] ([facility]) [address] [place] [address] 01294 Sodium (BldA) [Moles/Vol] 136 mmol/L Normal 136-145 [facility] Comment on above: Performed By: #### 3 4529-8 #### SANDRO Jain ([id number]) [facility] ([facility]) [address] [place] [address] 21407 Anion gap 4 (BldA) [Moles/Vol] [address] [facility] Base excess Calc (Bld) [Moles/Vol] 1.0 mmol/L -2.0 - 3.0 mmol/L [facility] Calcium.ionized (BldA) [Moles/Vol] 0.97 mmol/L Low 1.10 - 1.33 mmol/L [facility] Chloride (BldA) [Moles/Vol] 105 mmol/L 98 - 107 mmol/L [facility] CO2 (Bld) [Partial pressure] 42 mm[Hg] [facility] Glucose [Mass/Vol] 197 mg/dL High 74 - 99 mg/dL [facility] HCO3 (Bld) [Moles/Vol] 26.0 mmol/L 22.0 - 26.0 mmol/L [facility] Hematocrit Est (Bld) [Volume fraction] 32.0 % Low 36.0 - 46.0 % [facility] Inhaled oxygen concentration 80 % [facility] Lactate (BldA) [Moles/Vol] 1.1 mmol/L 0.4 - 2.0 mmol/L [facility] Oxygen (Bld) [Partial pressure] 324 mm[Hg] High [facility] pH (Bld) 7.40 [pH] 7.38 - 7.[address] [facility] Potassium (BldA) [Moles/Vol] 4.7 mmol/L 3.5 - 5.3 mmol/L [facility] Sodium (BldA) [Moles/Vol] 134 mmol/L Low 136 - 145 mmol/L [facility] Anion gap 4 (BldA) [Moles/Vol] 8 mmo/L Low 10-25 [facility] Comment on above: Performed By: #### 3 4529-8 #### SANDRO Jain ([id number]) [facility] ([facility]) [address] [place] [address] 60320 Base excess Calc (Bld) [Moles/Vol] 1.0 mmol/L Normal -2.0-3.0 [facility] Comment on above: Performed By: #### 3 4529-8 #### SANDRO Jain ([id number]) [facility] ([facility]) [id number] [place] [address] 86511 Calcium.ionized (BldA) [Moles/Vol] 0.97 mmol/L Low 1.10-1.33 [facility] Comment on above: Performed By: #### 3 4529-8 #### SANDRO Jain ([id number]) [facility] ([facility]) [address] [place] [address] Chloride (BldA) [Moles/Vol] 105 mmol/L Normal 98-107 [facility] Comment on above: Performed By: #### 3 4529-8 #### SANDRO Jain ([id number]) [facility] ([facility]) [address] [place] [address] 59266 CO2 (Bld) [Partial pressure] 42 mm Hg Normal 38-42 [facility] Comment on above: Performed By: #### 3 4529-8 #### SANDRO Jain ([id number]) [facility] ([facility]) [address] [place] [address] 42651 Glucose [Mass/Vol] 197 mg/dL High 74-99 [facility] Comment on above: Performed By: #### 3 4529-8 #### SANDRO Jain ([id number]) [facility] ([facility]) [address] [place] [address] 43868 HCO3 (Bld) [Moles/Vol] 26.0 mmol/L Normal 22.0-26.0 [facility] Comment on above: Performed By: #### 3 4529-8 #### SANDRO Jain ([id number]) [facility] ([facility]) [address] [place] [address] Hematocrit Est (Bld) [Volume fraction] 32.0 % Low 36.0-46.0 [facility] Comment on above: Performed By: #### 3 4529-8 #### SANDRO Jain ([id number]) [facility] ([facility]) [address] [place] [address] 20994 Inhaled oxygen concentration 80 % Normal [facility] Comment on above: Performed By: #### 3 4529-8 #### SANDRO Jain ([id number]) [facility] ([facility]) [address] [place] [address] 66354 Lactate (BldA) [Moles/Vol] 1.1 mmol/L Normal 0.4-2.0 [facility] Comment on above: Performed By: #### 3 4529-8 #### SANDRO Jain ([id number]) [facility] ([facility]) [address] [place] [address] 70735 Oxygen (Bld) [Partial pressure] 324 mm Hg High 85-95 [facility] Comment on above: Performed By: #### 3 4529-8 #### SANDRO Jain ([id number]) [facility] ([facility]) [address] [place] [address] 61326 pH (Bld) 7.40 [pH] Normal 7.38-7.42 [facility] Comment on above: Performed By: #### 3 4529-8 #### SANDRO Jain ([id number]) [facility] ([facility]) [address] [place] [address] 93189 Potassium (BldA) [Moles/Vol] 4.7 mmol/L Normal 3.5-5.3 [facility] Comment on above: Performed By: #### 3 4529-8 #### SANDRO Jain ([id number]) [facility] ([facility]) [address] [place] [address] 75897 Sodium (BldA) [Moles/Vol] 134 mmol/L Low 136-145 [facility] Comment on above: Performed By: #### 3 4529-8 #### SANDRO Jain ([id number]) [facility] ([facility]) [address] [place] [address] 32643 Anion gap 4 (BldA) [Moles/Vol] [address] [facility] Base excess Calc (Bld) [Moles/Vol] -0.4000 mmol/L -2.0 - 3.0 mmol/L [facility] Calcium.ionized (BldA) [Moles/Vol] 0.91 mmol/L Low 1.10 - 1.33 mmol/L [facility] Chloride (BldA) [Moles/Vol] 104 mmol/L 98 - 107 mmol/L [facility] CO2 (Bld) [Partial pressure] 38 mm[Hg] [facility] Glucose [Mass/Vol] 109 mg/dL High 74 - 99 mg/dL [facility] HCO3 (Bld) [Moles/Vol] 24.1 mmol/L 22.0 - 26.0 mmol/L [facility] Hematocrit Est (Bld) [Volume fraction] 34.0 % Low 36.0 - 46.0 % [facility] Inhaled oxygen concentration 80 % [facility] Lactate (BldA) [Moles/Vol] 0.9 mmol/L 0.4 - 2.0 mmol/L [facility] Oxygen (Bld) [Partial pressure] 328 mm[Hg] High [facility] pH (Bld) 7.41 [pH] 7.38 - 7.[address] [facility] Potassium (BldA) [Moles/Vol] 3.8 mmol/L 3.5 - 5.3 mmol/L [facility] Sodium (BldA) [Moles/Vol] 136 mmol/L 136 - 145 mmol/L [facility] Anion gap 4 (BldA) [Moles/Vol] 12 mmo/L Normal 10-25 [facility] Comment on above: Performed By: #### 5 8077-9 #### SANDRO Jain ([id number]) [facility] ([facility]) [address] [place] [address] Base excess Calc (Bld) [Moles/Vol] -0.4000 mmol/L Normal -2.0-3.0 [facility] Comment on above: Performed By: #### 5 8077-9 #### SANDRO Jain ([id number]) [facility] ([facility]) [address] [place] [address] 05646 Calcium.ionized (BldA) [Moles/Vol] 0.91 mmol/L Low 1.10-1.33 [facility] Comment on above: Performed By: #### 5 8077-9 #### SANDRO Jain ([id number]) [facility] ([facility]) [address] [place] [address] Chloride (BldA) [Moles/Vol] 104 mmol/L Normal 98-107 [facility] Comment on above: Performed By: #### 5 8077-9 #### SANDRO Jain ([id number]) [facility] ([facility]) [address] [place] [address] 96238 CO2 (Bld) [Partial pressure] 38 mm Hg Normal 38-42 [facility] Comment on above: Performed By: #### 5 8077-9 #### SANDRO Jain ([id number]) [facility] ([facility]) [address] [place] [address] 87141 Glucose [Mass/Vol] 109 mg/dL High 74-99 [facility] Comment on above: Performed By: #### 5 8077-9 #### SANDRO Jain ([id number]) [facility] ([facility]) [address] [place] [address] 94799 HCO3 (Bld) [Moles/Vol] 24.1 mmol/L Normal 22.0-26.0 [facility] Comment on above: Performed By: #### 5 8077-9 #### SANDRO Jain ([id number]) [facility] ([facility]) [address] [place] [address] 90526 Hematocrit Est (Bld) [Volume fraction] 34.0 % Low 36.0-46.0 [facility] Comment on above: Performed By: #### 5 8077-9 #### SANDRO FELIX L ([id number]) [facility] ([facility]) [address] [place] [address] 40608 Inhaled oxygen concentration 80 % Normal [facility] Comment on above: Performed By: #### 5 8077-9 #### SANDRO Jain ([id number]) [facility] ([facility]) [address] [place] [address] 49413 Lactate (BldA) [Moles/Vol] 0.9 mmol/L Normal 0.4-2.0 [facility] Comment on above: Performed By: #### 5 8077-9 #### SANDRO Jain ([id number]) [facility] ([facility]) [address] [place] [address] 34690 Oxygen (Bld) [Partial pressure] 328 mm Hg High 85-95 [facility] Comment on above: Performed By: #### 5 8077-9 #### SANDRO Jain ([id number]) [facility] ([facility]) [address] [place] [address] 07141 pH (Bld) 7.41 [pH] Normal 7.38-7.42 [facility] Comment on above: Performed By: #### 5 8077-9 #### SANDRO Jain ([id number]) [facility] ([facility]) [address] [place] [address] 52497 Potassium (BldA) [Moles/Vol] 3.8 mmol/L Normal 3.5-5.3 [facility] Comment on above: Performed By: #### 5 8077-9 #### SANDRO Jain ([id number]) [facility] ([facility]) [address] [place] [address] 35456 Sodium (BldA) [Moles/Vol] 136 mmol/L Normal 136-145 [facility] Comment on above: Performed By: #### 5 8077-9 #### SANDRO Jain ([id number]) [facility] ([facility]) [address] [place] [address] 15103 Anion gap 4 (BldA) [Moles/Vol] [address] [facility] Base excess Calc (Bld) [Moles/Vol] 1.9 mmol/L -2.0 - 3.0 mmol/L [facility] Calcium.ionized (BldA) [Moles/Vol] 1.07 mmol/L Low 1.10 - 1.33 mmol/L [facility] Chloride (BldA) [Moles/Vol] 106 mmol/L 98 - 107 mmol/L [facility] CO2 (Bld) [Partial pressure] 36 mm[Hg] Low [facility] Glucose [Mass/Vol] 122 mg/dL High 74 - 99 mg/dL [facility] HCO3 (Bld) [Moles/Vol] 25.6 mmol/L 22.0 - 26.0 mmol/L [facility] Hematocrit Est (Bld) [Volume fraction] 39.0 % 36.0 - 46.0 % [facility] Inhaled oxygen concentration 80 % [facility] Lactate (BldA) [Moles/Vol] 0.9 mmol/L 0.4 - 2.0 mmol/L [facility] Oxygen (Bld) [Partial pressure] 233 mm[Hg] High [facility] pH (Bld) 7.46 [pH] High 7.38 - 7.[address] [facility] Potassium (BldA) [Moles/Vol] 3.8 mmol/L 3.5 - 5.3 mmol/L [facility] Sodium (BldA) [Moles/Vol] 135 mmol/L Low 136 - 145 mmol/L [facility] Anion gap 4 (BldA) [Moles/Vol] 7 mmo/L Low 10-25 [facility] Comment on above: Performed By: #### 5 8077-9 #### SANDRO Jain ([id number]) [facility] ([facility]) [address] [place] [address] 91772 Base excess Calc (Bld) [Moles/Vol] 1.9 mmol/L Normal -2.0-3.0 [facility] Comment on above: Performed By: #### 5 8077-9 #### SANDRO Jain ([id number]) [facility] ([facility]) [address] [place] [address] 54907 Calcium.ionized (BldA) [Moles/Vol] 1.07 mmol/L Low 1.10-1.33 [facility] Comment on above: Performed By: #### 5 8077-9 #### SANDRO Jain ([id number]) [facility] ([facility]) [address] [place] [address] 97536 Chloride (BldA) [Moles/Vol] 106 mmol/L Normal 98-107 [facility] Comment on above: Performed By: #### 5 8077-9 #### SANDRO Jain ([id number]) [facility] ([facility]) [id number] [place] [address] 56003 CO2 (Bld) [Partial pressure] 36 mm Hg Low 38-42 [facility] Comment on above: Performed By: #### 5 8077-9 #### SANDRO Jain ([id number]) [facility] ([facility]) [address] [place] [address] 40618 Glucose [Mass/Vol] 122 mg/dL High 74-99 [facility] Comment on above: Performed By: #### 5 8077-9 #### SANDRO Jain ([id number]) [facility] ([facility]) [address] [place] [address] 78990 HCO3 (Bld) [Moles/Vol] 25.6 mmol/L Normal 22.0-26.0 [facility] Comment on above: Performed By: #### 5 8077-9 #### SANDRO Jain ([id number]) [facility] ([facility]) [address] [place] [address] 40665 Hematocrit Est (Bld) [Volume fraction] 39.0 % Normal 36.0-46.0 [facility] Comment on above: Performed By: #### 5 8077-9 #### SANDRO Jain ([id number]) [facility] ([facility]) [address] [place] [address] 35550 Inhaled oxygen concentration 80 % Normal [facility] Comment on above: Performed By: #### 5 8077-9 #### SANDRO Jain ([id number]) [facility] ([facility]) [address] [place] [address] 61099 Lactate (BldA) [Moles/Vol] 0.9 mmol/L Normal 0.4-2.0 [facility] Comment on above: Performed By: #### 5 8077-9 #### SANDRO Jain ([id number]) [facility] ([facility]) [id number] [place] [id number] Oxygen (Bld) [Partial pressure] 233 mm Hg High 85-95 [facility] Comment on above: Performed By: #### 5 8077-9 #### SANDRO Jain ([id number]) [facility] ([facility]) [address] [place] [address]106 pH (Bld) 7.46 [pH] High 7.38-7.42 [facility] Comment on above: Performed By: #### 5 8077-9 #### SANDRO Jain ([id number]) [facility] ([facility]) [address] [place] [address] 63696 Potassium (BldA) [Moles/Vol] 3.8 mmol/L Normal 3.5-5.3 [facility] Comment on above: Performed By: #### 5 8077-9 #### SANDRO Jain ([id number]) [facility] ([facility]) [address] [place] [address] 10219 Sodium (BldA) [Moles/Vol] 135 mmol/L Low 136-145 [facility] Comment on above: Performed By: #### 5 8077-9 #### SANDRO Jain ([id number]) [facility] ([facility]) [address] [place] [address] 05989 Anion gap 4 (BldA) [Moles/Vol] [address] [facility] Base excess Calc (Bld) [Moles/Vol] 3.9 mmol/L High -2.0 - 3.0 mmol/L [facility] Calcium.ionized (BldA) [Moles/Vol] 1.13 mmol/L 1.10 - 1.33 mmol/L [facility] Chloride (BldA) [Moles/Vol] 104 mmol/L 98 - 107 mmol/L [facility] CO2 (Bld) [Partial pressure] 42 mm[Hg] [facility] Glucose [Mass/Vol] 104 mg/dL High 74 - 99 mg/dL [facility] [facility] HCO3 (Bld) [Moles/Vol] 28.5 mmol/L High 22.0 - 26.0 mmol/L [facility] Hematocrit Est (Bld) [Volume fraction] 40.0 % 36.0 - 46.0 % [facility] Inhaled oxygen concentration 80 % [facility] Lactate (BldA) [Moles/Vol] 1.0 mmol/L 0.4 - 2.0 mmol/L [facility] Oxygen (Bld) [Partial pressure] 437 mm[Hg] High [facility] pH (Bld) 7.44 [pH] High 7.38 - 7.[address] [facility] Potassium (BldA) [Moles/Vol] 3.7 mmol/L 3.5 - 5.3 mmol/L [facility] Sodium (BldA) [Moles/Vol] 135 mmol/L Low 136 - 145 mmol/L [facility] Anion gap 4 (BldA) [Moles/Vol] 6 mmo/L Low 10-25 [facility] Comment on above: Performed By: #### 9 3685-6 #### SANDRO Jain ([id number]) [facility] ([facility]) [address] [place] [address] Base excess Calc (Bld) [Moles/Vol] 3.9 mmol/L High -2.0-3.0 [facility] Comment on above: Performed By: #### 9 4515-6 #### SANDRO Jain ([id number]) [facility] ([facility]) [id number] [place] [address] Calcium.ionized (BldA) [Moles/Vol] 1.13 mmol/L Normal 1.10-1.33 [facility] Comment on above: Performed By: #### 9 0865-6 #### SANDRO Jain ([id number]) [facility] ([facility]) [id number] [place] [address]57 Chloride (BldA) [Moles/Vol] 104 mmol/L Normal 98-107 [facility] Comment on above: Performed By: #### 9 0295-6 #### SANDRO Jain ([id number]) [facility] ([facility]) [address] [place] [address] CO2 (Bld) [Partial pressure] 42 mm Hg Normal 38-42 [facility] Comment on above: Performed By: #### 9 3685-6 #### SANDRO Jain ([id number]) [facility] ([facility]) [address] [place] [address] Glucose [Mass/Vol] 104 mg/dL High 74-99 [facility] Comment on above: Performed By: #### 9 3685-6 #### SANDRO Jain ([id number]) [facility] ([facility]) [address] [place] [address] HCO3 (Bld) [Moles/Vol] 28.5 mmol/L High 22.0-26.0 [facility] Comment on above: Performed By: #### 9 3685-6 #### SANDRO Jain ([id number]) [facility] ([facility]) [address] [place] [address] Hematocrit Est (Bld) [Volume fraction] 40.0 % Normal 36.0-46.0 [facility] Comment on above: Performed By: #### 9 3685-6 #### SANDRO Jain ([id number]) [facility] ([facility]) [address] [place] [address] Inhaled oxygen concentration 80 % Normal [facility] Comment on above: Performed By: #### 9 3685-6 #### SANDRO Jain ([id number]) [facility] ([facility]) [id number] [place] [address] 7[address] Lactate (BldA) [Moles/Vol] 1.0 mmol/L Normal 0.4-2.0 [facility] Comment on above: Performed By: #### 9 3685-6 #### SANDRO Jain ([id number]) [facility] ([facility]) [address] [place] [address] Oxygen (Bld) [Partial pressure] 437 mm Hg High 85-95 [facility] Comment on above: Performed By: #### 9 3685-6 #### SANDRO Jain ([id number]) [facility] ([facility]) [address] [place] [address]41 pH (Bld) 7.44 [pH] High 7.38-7.42 [facility] Comment on above: Performed By: #### 9 3685-6 #### SANDRO Jain ([id number]) [facility] ([facility]) [address] [place] [address]3338 Potassium (BldA) [Moles/Vol] 3.7 mmol/L Normal 3.5-5.3 [facility] Comment on above: Performed By: #### 9 3685-6 #### SANDRO Jain ([id number]) [facility] ([facility]) [address] [place] [address] 01588 Sodium (BldA) [Moles/Vol] 135 mmol/L Low 136-145 [facility] Comment on above: Performed By: #### 9 3685-6 #### SANDRO Jain ([id number]) [facility] ([facility]) [address] [place] [address] 74719 Gas panel (BldV)on 5 Anion gap 4 (BldV) [Moles/Vol] 8.0 mmol/L Low 10.0 - 25.0 mmol/L [facility] Base excess Calc (BldV) [Moles/Vol] 4.2 mmol/L High -2.0 - 3.0 mmol/L [facility] Calcium.ionized (BldV) [Moles/Vol] 0.95 mmol/L Low 1.10 - 1.33 mmol/L [facility] Chloride (BldV) [Moles/Vol] 104 mmol/L 98 - 107 mmol/L [facility] CO2 (BldV) [Partial pressure] 48 mm[Hg] [facility] Glucose [Mass/Vol] 197 mg/dL High 74 - 99 mg/dL [facility] HCO3 (Bld) [Moles/Vol] 29.7 mmol/L High 22.0 - 26.0 mmol/L [facility] Hematocrit Est (Bld) [Volume fraction] 30.0 % Low 36.0 - 46.0 % [facility] Hemoglobin (Bld) [Mass/Vol] 9.9 g/dL Low 12.0 - 16.0 g/dL [facility] Inhaled oxygen concentration 80 % [facility] Interpretation and review of laboratory results Abnormal [facility] Lactate (BldV) [Moles/Vol] 1.0 mmol/L 0.4 - 2.0 mmol/L [facility] Oxygen (BldV) [Partial pressure] 53 mm[Hg] High [facility] Oxygen saturation in Venous blood 86 % High 45 - 75 % [facility] Oxyhemoglobin (BldV) [Mass fraction] 84.5 % High 45.0 - 75.0 % [facility] pH (BldV) 7.40 [pH] 7.33 - 7.[address] [facility] Potassium (BldV) [Moles/Vol] 4.6 mmol/L 3.5 - 5.3 mmol/L [facility] Sodium (BldV) [Moles/Vol] 137 mmol/L 136 - 145 mmol/L [facility] Anion gap 4 (BldV) [Moles/Vol] 8.0 mmol/L Low 10.0-25.0 [facility] Comment on above: Performed By: #### 5 8077-9 #### SANDRO Jain ([id number]) [facility] ([facility]) [address] [place] [address] 48149 Base excess Calc (BldV) [Moles/Vol] 4.2 mmol/L High -2.0-3.0 [facility] Comment on above: Performed By: #### 5 8077-9 #### SANDRO Jain ([id number]) [facility] ([facility]) [address] [place] [address] 55454 Calcium.ionized (BldV) [Moles/Vol] 0.95 mmol/L Low 1.10-1.33 [facility] Comment on above: Performed By: #### 5 8177-9 #### SANDRO Jain ([id number]) [facility] ([facility]) [address] [place] [address] Chloride (BldV) [Moles/Vol] 104 mmol/L Normal 98-107 [facility] Comment on above: Performed By: #### 5 8077-9 #### SANDRO Jain ([id number]) [facility] ([facility]) [address] [place] [address]38 CO2 (BldV) [Partial pressure] 48 mm Hg Normal 41-51 [facility] Comment on above: Performed By: #### 5 8077-9 #### SANDRO Jain ([id number]) [facility] ([facility]) [address] [place] [address] 64076 Glucose [Mass/Vol] 197 mg/dL High 74-99 [facility] Comment on above: Performed By: #### 5 8077-9 #### SANDRO Jain ([id number]) [facility] ([facility]) [address] [place] [address] 73355 HCO3 (Bld) [Moles/Vol] 29.7 mmol/L High 22.0-26.0 [facility] Comment on above: Performed By: #### 5 8077-9 #### SANDRO Jain ([id number]) [facility] ([facility]) [address] [place] [address] 07236 Hematocrit Est (Bld) [Volume fraction] 30.0 % Low 36.0-46.0 [facility] Comment on above: Performed By: #### 5 8077-9 #### SANDRO Jain ([id number]) [facility] ([facility]) [address] [place] [address] 70488 Hemoglobin (Bld) [Mass/Vol] 9.9 g/dL Low 12.0-16.0 [facility] Comment on above: Performed By: #### 5 8077-9 #### SANDRO Jain ([id number]) [facility] ([facility]) [address] [place] [address] 18145 Inhaled oxygen concentration 80 % Normal [facility] Comment on above: Performed By: #### 5 8077-9 #### SANDRO Jain ([id number]) [facility] ([facility]) [address] [place] [address] 97094 Lactate (BldV) [Moles/Vol] 1.0 mmol/L Normal 0.4-2.0 [facility] Comment on above: Performed By: #### 5 8077-9 #### SANDRO Jain ([id number]) [facility] ([facility]) [address] [place] [address] 14835 Oxygen (BldV) [Partial pressure] 53 mm Hg High 35-45 [facility] Comment on above: Performed By: #### 5 8077-9 #### SANDRO Jain ([id number]) [facility] ([facility]) [address] [place] [address] 46193 Oxygen saturation in Venous blood 86 % High 45-75 [facility] Comment on above: Performed By: #### 5 8077-9 #### SANDRO Jain ([id number]) [facility] ([facility]) [address] [place] [address] 92597 Oxyhemoglobin (BldV) [Mass fraction] 84.5 % High 45.0-75.0 [facility] Comment on above: Performed By: #### 5 8077-9 #### SANDRO Jain ([id number]) [facility] ([facility]) [address] [place] [address] 23645 pH (BldV) 7.40 [pH] Normal 7.33-7.43 [facility] Comment on above: Performed By: #### 5 8077-9 #### SANDRO Jain ([id number]) [facility] ([facility]) [address] [place] [address] 26563 Potassium (BldV) [Moles/Vol] 4.6 mmol/L Normal 3.5-5.3 [facility] Comment on above: Performed By: #### 5 8077-9 #### SANDRO Jain ([id number]) [facility] ([facility]) [address] [place] [address] 11208 Sodium (BldV) [Moles/Vol] 137 mmol/L Normal 136-145 [facility] Comment on above: Performed By: #### 5 8077-9 #### SANDRO Jain ([id number]) [facility] ([facility]) [address] [place] [address] 71172 Glucose Test strip manual (B ld) [Mass/Vol]on 01-09-2025 Glucose [Mass/Vol] 187 mg/dL High 74 - 99 mg/dL [facility] Interpretation and review of laboratory results Abnormal [facility] Glucose [Mass/Vol] 187 mg/dL High 74-99 [facility] Comment on above: Performed By: #### 2 4323-8 #### SANDRO Jain ([id number]) [facility] ([facility]) [address] [place] [address] 73906 Glucose [Mass/Vol] 227 mg/dL High 74 - 99 mg/dL [facility] Interpretation and review of laboratory results Abnormal [facility] Glucose [Mass/Vol] 227 mg/dL High 74-99 [facility] Comment on above: Performed By: #### 2 4323-8 #### SANDRO Jain ([id number]) [facility] ([facility]) [address] [place] [address] 50756 HCG ( test) Ql (U)o n 01-09-2025 Interpretation and review of laboratory results Normal [facility] Work Phone: Preg Test, Ur Negative Negative [facility] Work Phone: [facility] Work Phone: Laboratory - Chemistry and C hemistry - challengeon 01-09-2025 Oxyhemoglobin (BldA) [Mass fraction] 96.7 % 94.0 - 98.0 % [facility] Oxyhemoglobin (BldA) [Mass fraction] 98.5 % High 94.0 - 98.0 % [facility] Oxyhemoglobin (BldA) [Mass fraction] 97.8 % 94.0 - 98.0 % [facility] Oxyhemoglobin (BldA) [Mass fraction] 98.8 % High 94.0 - 98.0 % [facility] Oxyhemoglobin (BldA) [Mass fraction] 98.2 % High 94.0 - 98.0 % [facility] Oxyhemoglobin (BldA) [Mass fraction] 98.1 % High 94.0 - 98.0 % [facility] Oxyhemoglobin (BldA) [Mass fraction] 98.1 % High 94.0 - 98.0 % [facility] Laboratory - Hematology and Cell countson 01-09-2025 Hemoglobin (Bld) [Mass/Vol] 11.0 g/dL Low 12.0 - 16.0 g/dL [facility] Hemoglobin (Bld) [Mass/Vol] 8.6 g/dL Low 12.0 - 16.0 g/dL [facility] Hemoglobin (Bld) [Mass/Vol] 10.7 g/dL Low 12.0 - 16.0 g/dL [facility] Hemoglobin (Bld) [Mass/Vol] 10.5 g/dL Low 12.0 - 16.0 g/dL [facility] Hemoglobin (Bld) [Mass/Vol] 11.4 g/dL Low 12.0 - 16.0 g/dL [facility] Hemoglobin (Bld) [Mass/Vol] 13.1 g/dL 12.0 - 16.0 g/dL [facility] Hemoglobin (Bld) [Mass/Vol] 13.3 g/dL 12.0 - 16.0 g/dL [facility] Magnesiumon 01-09-2025 Magnesium [Mass/Vol] 2.55 mg/dL High 1.60 - 2.40 mg/dL [facility] Magnesium [Mass/Vol] 2.55 mg/dL High 1.60-2.40 [facility] Comment on above: Order Comment: On ad giovani to ICU Performed By: #### 1 988-5 #### SANDRO Jain ([id number]) [facility] ([facility]) [address] [place] [address] No Panel Informationon 01-09 Interpretation and review of laboratory results Abnormal [facility] Interpretation and review of laboratory results Abnormal [facility] Interpretation and review of laboratory results Abnormal [facility] Interpretation and review of laboratory results Abnormal [facility] Interpretation and review of laboratory results Abnormal [facility] Interpretation and review of laboratory results Abnormal [facility] Interpretation and review of laboratory results Abnormal [facility] Interpretation and review of laboratory results Abnormal [facility] Interpretation and review of laboratory results Abnormal [facility] PT and aPTT panel Coag (PPP) on 01-09-2025 aPTT Coag (PPP) [Time] 30 s [facility] INR Coag (PPP) [Relative time] 1.4 {INR} High 0.9 - 1.[address] [facility] PT Coag (PPP) [Time] 15.0 s High [facility] aPTT Coag (PPP) [Time] 30 s Normal 26-36 [facility] Comment on above: Order Comment: On ad giovani to ICUThe APTT is no longer used for monitoring Unfractionated Heparin Therapy. For monitoring Heparin Therapy, use the Heparin Assay. Performed By: #### 1 988-5 #### SANDRO Jain ([id number]) [facility] ([facility]) [address] [place], [place] [address] INR Coag (PPP) [Relative time] 1.4 High 0.9-1.1 [facility] Comment on above: Order Comment: On ad giovani to ICUThe APTT is no longer used for monitoring Unfractionated Heparin Therapy. For monitoring Heparin Therapy, use the Heparin Assay. Performed By: #### 1 988-5 #### SANDRO Jain ([id number]) [facility] ([facility]) [address] [place] [address] 94243 PT Coag (PPP) [Time] 15.0 s High 9.8-12.4 [facility] Comment on above: Order Comment: On ad giovani to ICUThe APTT is no longer used for monitoring Unfractionated Heparin Therapy. For monitoring Heparin Therapy, use the Heparin Assay. Performed By: #### 1 988-5 #### SANDRO Jain ([id number]) [facility] ([facility]) [id number] [place] [address] Renal function 2000 panelon 01-09-2025 Albumin BCP dye [Mass/Vol] 3.2 g/dL Low 3.4 - 5.0 g/dL [facility] Anion gap [Moles/Vol] 14 mmol/L 10 - 2 0 mmol/L [facility] Calcium [Mass/Vol] 8.3 mg/dL Low 8.6 - 10. 6 mg/dL [facility] Chloride [Moles/Vol] 109 mmol/L High 98 - 10 7 mmol/L [facility] CO2 [Moles/Vol] 22 mmol/L 21 - 32 mmol/L [facility] Creatinine [Mass/Vol] 0.74 mg/dL 0.50 - 1.05 mg/dL [facility] eGFR - PINF [facility] Glucose [Mass/Vol] 131 mg/dL High 74 - 99 mg/dL [facility] Phosphate [Mass/Vol] 2.8 mg/dL 2.5 - 4 .9 mg/dL [facility] Potassium [Moles/Vol] 4.5 mmol/L 3.5 - 5.3 mmol/L [facility] Sodium [Moles/Vol] 140 mmol/L 136 - 145 mmol/L [facility] Urea nitrogen [Mass/Vol] 9 mg/dL 6 - 23 mg/d L [facility] Albumin BCP dye [Mass/Vol] 3.2 g/dL Low 3.4-5.0 [facility] Comment on above: Order Comment: On ad giovani to ICU Performed By: #### 1 988-5 #### SANDRO Jain ([id number]) [facility] ([facility]) [address] [place] [address] Anion gap [Moles/Vol] 14 mmol/L Normal 10-20 [facility] Comment on above: Order Comment: On ad giovani to ICU Performed By: #### 1 988-5 #### SANDRO FELIX L ([id number]) [facility] ([facility]) [address] [place] [address] 78476 Calcium [Mass/Vol] 8.3 mg/dL Low 8.6-10.6 [facility] Comment on above: Order Comment: On ad giovani to ICU Performed By: #### 1 988-5 #### SANDRO LARAER L ([id number]) [facility] ([facility]) [address] [place] [address] 93316 Chloride [Moles/Vol] 109 mmol/L High 98-107 [facility] Comment on above: Order Comment: On ad giovani to ICU Performed By: #### 1 988-5 #### SANDRO FELIX L ([id number]) [facility] ([facility]) [address] [place] [address] 61361 CO2 [Moles/Vol] 22 mmol/L Normal 21-32 [facility] Comment on above: Order Comment: On ad giovani to ICU Performed By: #### 1 988-5 #### SANDRO FELIX L ([id number]) [facility] ([facility]) [address] [place] [address] 50446 Creatinine [Mass/Vol] 0.74 mg/dL Normal 0.50-1.05 [facility] Comment on above: Order Comment: On ad giovani to ICU Performed By: #### 1 988-5 #### SANDRO LARAER L ([id number]) [facility] ([facility]) [address] [place] [address] 12831 Glomerular filtration rate >90 Normal >60 [facility] Comment on above: Order Comment: On ad giovani to ICU Result Comment: Calc ulations of estimated GFR are performed using the 2020 CKD-EPI Study Refit equation without the race variable for the IDMS-Traceable creatinine methods. https://jasn.asnjournals.org/content/early/ASN.049 9145535 Performed By: #### 1 988-5 #### SANDRO Jain ([id number]) [facility] ([facility]) [address] [place] [address] Glucose [Mass/Vol] 131 mg/dL High 74-99 [facility] Comment on above: Order Comment: On ad giovani to ICU Performed By: #### 1 988-5 #### SANDRO Jain ([id number]) [facility] ([facility]) [address] [place] [address] 54883 Phosphate [Mass/Vol] 2.8 mg/dL Normal 2.5-4.9 [facility] Comment on above: Order Comment: On ad giovani to ICU Performed By: #### 1 988-5 #### SANDRO Jain ([id number]) [facility] ([facility]) [address] [place] [address] 30994 Potassium [Moles/Vol] 4.5 mmol/L Normal 3.5-5.3 [facility] Comment on above: Order Comment: On ad giovani to ICU Performed By: #### 1 988-5 #### SANDRO Jain ([id number]) [facility] ([facility]) [address] [place] [address] 58694 Sodium [Moles/Vol] 140 mmol/L Normal 136-145 [facility] Comment on above: Order Comment: On ad giovani to ICU Performed By: #### 1 988-5 #### SANDRO Jain ([id number]) [facility] ([facility]) [address] [place] [address] 99875 Urea nitrogen [Mass/Vol] 9 mg/dL Normal 6-23 [facility] Comment on above: Order Comment: On ad giovani to ICU Performed By: #### 1 988-5 #### SANDRO Jain ([id number]) [facility] ([facility]) [address] [place] [address] 27721 Surgical pathology studyon 0 01-09-2025 Surgical pathology study Pathology report.total SEE COMMENT Surgical Pathology Case: [id number] Authorizing Provider: Gordon Armstrong MD Collected: 01/09/2025 0930 Ordering Location: [facility] Received: 01/09/2025 1242 [place] Pathologist: Fuad Hills MD Specimen: HEART ATRIAL APPENDAGE, LEFT ATRIAL APPENDAGE Path report.final diagnosis SEE COMMENT A. LEFT ATRIAL APPENDAGE: Mild endocardial fibrosis. at 1715 EDT Laboratory comment By the signature on this report, the individual or group listed as making the Final Interpretation/Diagn osis certifies that they have reviewed this case. Path report.relevant Hx SEE COMMENT Pre-op diagnosis: Mitral valve insufficiency, unspecified etiology [I34.0] Path report.gross observation SEE COMMENT Received in formalin, labeled with the patient's name and hospital number and left atrial appendage, is an atrial appendage measuring 3.0 x 2.5 x 1.0 cm. The pericardium is smooth. A 4.8 cm in length staple line is present. The endocardium is smooth. The wall is 0.4 cm in thickness. Thrombi are not identified. The specimen is sectioned and promotional representative sections are submitted in 2 cassettes. JSD Normal [facility] Comment on above: Order Comment: Pre-o p diagnosis:Mitral valve insufficiency, unspecified etiology [I34.0] TEG Clot Global Profile Unso licitedon 01-09-2025 ANGLE 70.0 deg 63.0 - 78.[address] [facility] FLEV 272 mg/dL Low 278 - 581 mg/dL [facility] Interpretation and review of laboratory results Abnormal [facility] K (Clot Kinetics) 1.7 min 0.8 - 2.1 min [facility] ( Drea Amplitude) FF 15.0 mm 15.0 - 32.0 mm [facility] (Max Amplitude) K 57.0 mm 52.0 - 69.0 mm [facility] (Max Amplitude) RT 55.0 mm 52.0 - 70.[address] [facility] R (Reaction Time) K 7.8 min 4.6 - 9. [address] [facility] R (Reaction Time) KH 10.7 min High 4.3 - 8 .[address] [facility] Test Comment post protamine [facility] ANGLE 75.0 deg 63.0 - 78.[address] [facility] FLEV 380 mg/dL 278 - 581 mg/dL [facility] Interpretation and review of laboratory results Abnormal [facility] K (Clot Kinetics) 1.2 min 0.8 - 2.[address] [facility] MA ( Drea Amplitude) FF 21.0 mm 15.0 - 32.[address] [facility] MA (Max Amplitude) K 63.0 mm 52.0 - 69.[address] [facility] [address] [facility] [facility] MA (Max Amplitude) RT 65.0 mm 52.0 - 70.[address] [facility] R (Reaction Time) K 4.4 min Low 4.6 - 9. [address] [facility] R (Reaction Time) KH 5.3 min 4.3 - 8 .[address] [facility] Test Comment baseline [facility] THROMBOELASTOGRAPH CLOTTING GLOBAL PROFILE UNSOLICITEDon 01-09-2025 Clot angle.kaolin induced 70.0 deg Normal 63.0-78.0 [facility] Comment on above: Performed By: #### 1 988-5 #### SANDRO Jain ([id number]) [facility] ([facility]) [address] [place] [address] 10874 Clot formation.kaolin induced 1.7 min Normal 0.8-2.1 [facility] Comment on above: Performed By: #### 1 988-5 #### SANDRO KISERMOTZER L ([id number]) [facility] ([facility]) [address] [place] [address] 52200 Clot initiation.kaolin induced 7.8 min Normal 4.6-9.1 [facility] Comment on above: Performed By: #### 1 988-5 #### SANDRO KISERMOTZER L ([id number]) [facility] ([facility]) [address] [place] [address] 56479 Clot initiation.kaolin induced^post heparin neutralization 10.7 min High 4.3-8.3 [facility] Comment on above: Performed By: #### 1 988-5 #### SANDRO KISERMOTZER L ([id number]) [facility] ([facility]) [address] [place] [address] 47963 Fibrinogen 272 mg/dL Low 278-581 [facility] Comment on above: Performed By: #### 1 988-5 #### SANDRO Jain ([id number]) [facility] ([facility]) [address] [place], [place] [address] Maximum clot strength amplitude.kaolin induced 57.0 mm Normal 52.0-69.0 [facility] Comment on above: Performed By: #### 1 988-5 #### SANDRO Jain ([id number]) [facility] ([facility]) [address] [place] [address] 89189 Maximum clot strength amplitude.kaolin+tissue factor induced 55.0 mm Normal 52.0-70.0 [facility] Comment on above: Performed By: #### 1 988-5 #### SANDRO Jain ([id number]) [facility] ([facility]) [address] [place] [address] Maximum clot strength amplitude.tissue factor induced+platelet glycoprotein IIb-IIIa receptor inhibited 15.0 mm Normal 15.0-32.0 [facility] Comment on above: Performed By: #### 1 988-5 #### SANDRO Jain ([id number]) [facility] ([facility]) [address] [place] [address] 11352 TEST COMMENT post protamine Normal [facility] Comment on above: Performed By: #### 1 988-5 #### SANDRO Jain ([id number]) [facility] ([facility]) [address] [place] [address] 35646 Clot angle.kaolin induced 75.0 deg Normal 63.0-78.0 [facility] Comment on above: Performed By: #### 5 8077-9 #### SANDRO Jain ([id number]) [facility] ([facility]) [address] [place] [address] 53881 Clot formation.kaolin induced 1.2 min Normal 0.8-2.1 [facility] Comment on above: Performed By: #### 5 8077-9 #### SANDRO Jain ([id number]) [facility] ([facility]) [address] [place] [address] 84619 Clot initiation.kaolin induced 4.4 min Low 4.6-9.1 [facility] Comment on above: Performed By: #### 5 8077-9 #### SANDRO FELIX L ([id number]) [facility] ([facility]) [address] [place] [address] 62574 Clot initiation.kaolin induced^post heparin neutralization 5.3 min Normal 4.3-8.3 [facility] Comment on above: Performed By: #### 5 8077-9 #### ASNDRO Jain ([id number]) [facility] ([facility]) [address] [place] [address] 68068 Fibrinogen 380 mg/dL Normal 278-581 [facility] Comment on above: Performed By: #### 5 8077-9 #### SANDRO Jain ([id number]) [facility] ([facility]) [address] [place] [address] 41416 Maximum clot strength amplitude.kaolin induced 63.0 mm Normal 52.0-69.0 [facility] Comment on above: Performed By: #### 5 8077-9 #### SANDRO FELIX L ([id number]) [facility] ([facility]) [address] [place] [address] 63854 Maximum clot strength amplitude.kaolin+tissue factor induced 65.0 mm Normal 52.0-70.0 [facility] Comment on above: Performed By: #### 5 8077-9 #### SANDRO FELIX L ([id number]) [facility] ([facility]) [address] [place] [address] 22947 Maximum clot strength amplitude.tissue factor induced+platelet glycoprotein IIb-IIIa receptor inhibited 21.0 mm Normal 15.0-32.0 [facility] Comment on above: Performed By: #### 5 8077-9 #### SANDRO FELIX L ([id number]) [facility] ([facility]) [address] [place] [address] 10324 TEST COMMENT baseline Normal [facility] Comment on above: Performed By: #### 5 8077-9 #### SANDRO FELIX Susy ([id number]) [facility] ([facility]) [address] [place] [address] XR CHEST 1 VIEWon 01-09-2025 XR CHEST 1 VIEW Interpreted By: Niraj Bella and Nadeau Simon STUDY: XR CHEST 1 VIEW; 01/09/2025 12:58 pm INDICATION: Signs/Symptoms:Post op cardiac surgery. COMPARISON: Chest radiograph 12/25/2024 ACCESSION NUMBER(S): [id number] ORDERING CLINICIAN: CLAUS LOPEZ FINDINGS: AP radiograph of the chest was provided. Left subclavian approach AICD/pacemaker with distal leads projecting over the right atrium and right ventricle. Right-sided chest tube with distal tip projecting over the right superior hemithorax. Left-sided chest tube with distal tip projecting over the left lower hemithorax. Mediastinal drain is visualized. Right internal jugular approach central venous catheter with distal tip projecting over the upper SVC. Endotracheal tube with distal tip projecting 3.9 cm from the katlyn. Enteric tube visualized with distal tip not within the field of view. Median sternotomy wires visualized. CARDIOMEDIASTINAL SILHOUETTE: Cardiomediastinal silhouette is enlarged in the postsurgical setting. LUNGS: Perihilar bibasilar bandlike opacifications. Small left and trace right pleural effusions. There is evidence of trace pneumomediastinum along the left heart border. No evidence of sizeable pneumothorax. ABDOMEN: No remarkable upper abdominal findings. BONES: No acute osseous changes. IMPRESSION: 1. Perihilar and bibasilar bandlike opacifications likely promotional representative of atelectasis with small left and trace right pleural effusions. Findings compatible with expected postsurgical changes. 2. Endotracheal tube with distal tip projecting 3.9 cm from the katlyn. 3. Additional medical devices as above. I personally reviewed the images/study and I agree with the findings as stated by Aries Roldan D.O. (assistant vice president). This study was interpreted at [facility], [place], [place]. MACRO: None Signed by: Niraj Bella 01/09/2025 2:13 PM Dictation workstation: [id number] [facility] Comment on above: Order Comment: On ar rival to ICU XR Chest Single viewon 01-09 [facility] MM[facility]AL [facility] MM[facility] Work Phone: Radiology Study observation (narrative) [facility] Work Phone: XR Chest Single viewOrdered By: Niraj Bella on 01-09-[address] [facility] Work Phone: Blood type and Indirect anti body screen panel (Bld)on 12-25-2024 ABO group Nom (Bld) A Normal [facility] Comment on above: Performed By: #### 3 4532-2 #### SANDRO Jain ([id number]) [facility] ([facility]) [address] [place] [address] 27806 Blood group antibody screen Ql Negative [facility] Comment on above: Performed By: #### 3 4532-2 #### SANDRO Jain ([id number]) [facility] ([facility]) [address] [place] [address] 14453 D Ag Ql (Bld) Positive [facility] Comment on above: Result Comment: 2nd ABO test required. Order and Collect VERAB Performed By: #### 3 4532-2 #### SANDRO Jain ([id number]) [facility] ([facility]) [address] [place] [address] 20259 C reactive proteinon 025 CRP [Mass/Vol] 0.81 mg/dL Normal <1.00 [facility] Comment on above: Performed By: #### 1 988-5 #### SANDRO Jain ([id number]) [facility] ([facility]) [address] [place] [address] 50254 CBC W Auto Differential pane l (Bld)on 12-25-2024 Basophils (Bld) [#/Vol] 0.03 x10*3/uL Normal 0.00-0.10 [facility] Comment on above: Performed By: #### 5 7021-8 #### SANDRO Jain ([id number]) [facility] ([facility]) [address] [place] [address] 10564 Basophils/100 WBC (Bld) 0.6 % Normal 0.0-2.0 [facility] Comment on above: Performed By: #### 5 7021-8 #### SANDRO Jain ([id number]) [facility] ([facility]) [address] [place] [address] 53783 Eosinophils (Bld) [#/Vol] 0.03 x10*3/uL Normal 0.00-0.70 [facility] Comment on above: Performed By: #### 5 7021-8 #### SANDRO Jain ([id number]) [facility] ([facility]) [address] [place] [address] 98313 Eosinophils/100 WBC (Bld) 0.6 % Normal 0.0-6.0 [facility] Comment on above: Performed By: #### 5 7021-8 #### SANDRO Jain ([id number]) [facility] ([facility]) [address] [place] [address] 08381 Erythrocyte distribution width (RBC) [Ratio] 13.0 % Normal 11.5-14.5 [facility] Comment on above: Performed By: #### 5 7021-8 #### SANDRO Jain ([id number]) [facility] ([facility]) [address] [place] [address] 49989 Hematocrit (Bld) [Volume fraction] 43.2 % Normal 36.0-46.0 [facility] Comment on above: Performed By: #### 5 7021-8 #### SANDRO Jain ([id number]) [facility] ([facility]) [address] [place] [address] 29382 Hemoglobin (Bld) [Mass/Vol] 13.8 g/dL Normal 12.0-16.0 [facility] Comment on above: Performed By: #### 5 7021-8 #### SANDRO Jain ([id number]) [facility] ([facility]) [address] [place] [address] 27874 Immature granulocytes (Bld) [#/Vol] 0.01 x10*3/uL Normal 0.00-0.70 [facility] Comment on above: Performed By: #### 5 7021-8 #### SANDRO Jain ([id number]) [facility] ([facility]) [address] [place] [address] Immature granulocytes/100 WBC (Bld) 0.2 % Normal 0.0-0.9 [facility] Comment on above: Result Comment: Nano ture Granulocyte Count (IG) includes promyelocytes, myelocytes and metamyelocytes but does not include bands. Percent differential counts (%) should be interpreted in the context of the absolute cell counts (cells/UL). Performed By: #### 5 7021-8 #### SANDRO Jain ([id number]) [facility] ([facility]) [address] [place] [address] 11622 Lymphocytes (Bld) [#/Vol] 1.30 x10*3/uL Normal 1.20-4.80 [facility] Comment on above: Performed By: #### 5 7021-8 #### SANDRO Jain ([id number]) [facility] ([facility]) [address] [place] [address] 31782 Lymphocytes/100 WBC (Bld) 24.6 % Normal 13.0-44.0 [facility] Comment on above: Performed By: #### 5 7021-8 #### SANDRO Jain ([id number]) [facility] ([facility]) [address] [place] [address] 89455 MCH (RBC) [Entitic mass] 28.1 pg Normal 26.0-34.0 [facility] Comment on above: Performed By: #### 5 7021-8 #### SANDRO Jain ([id number]) [facility] ([facility]) [address] [place] [address] 58782 MCHC (RBC) [Mass/Vol] 31.9 g/dL Low 32.0-36.0 [facility] Comment on above: Performed By: #### 5 7021-8 #### SANDRO Jain ([id number]) [facility] ([facility]) [address] [place] [address] MCV (RBC) [Entitic vol] 88 fL Normal 80-100 [facility] Comment on above: Performed By: #### 5 7021-8 #### SANDRO Jain ([id number]) [facility] ([facility]) [address] [place] [address] 13878 Monocytes (Bld) [#/Vol] 0.43 x10*3/uL Normal 0.10-1.00 [facility] Comment on above: Performed By: #### 5 7021-8 #### SANDRO Jain ([id number]) [facility] ([facility]) [address] [place] [address] 73893 Monocytes/100 WBC (Bld) 8.1 % Normal 2.0-10.0 [facility] Comment on above: Performed By: #### 5 7021-8 #### SANDRO Jain ([id number]) [facility] ([facility]) [address] [place] [address] 34123 Neutrophils (Bld) [#/Vol] 3.49 x10*3/uL Normal 1.20-7.70 [facility] Comment on above: Result Comment: Perc ent differential counts (%) should be interpreted in the context of the absolute cell counts (cells/uL). Performed By: #### 5 7021-8 #### SANDRO Jain ([id number]) [facility] ([facility]) [address] [place] [address] 41850 Neutrophils/100 WBC (Bld) 65.9 % Normal 40.0-80.0 [facility] Comment on above: Performed By: #### 5 7021-8 #### SANDRO FELIX L ([id number]) [facility] ([facility]) [address] [place] [address] 93112 Nucleated RBC/100 WBC (Bld) [Ratio] 0.0 /100 WBCs Normal 0.0-0.0 [facility] Comment on above: Performed By: #### 5 7021-8 #### SANDRO Jain ([id number]) [facility] ([facility]) [address] [place] [address] 30009 Platelets (Bld) [#/Vol] 177 x10*3/uL Normal 150-450 [facility] Comment on above: Performed By: #### 5 7021-8 #### SANDRO Jain ([id number]) [facility] ([facility]) [address] [place] [address] 08131 RBC (Bld) [#/Vol] 4.91 x10*6/uL Normal 4.00-5.20 [facility] Comment on above: Performed By: #### 5 7021-8 #### SANDRO Jain ([id number]) [facility] ([facility]) [address] [place] [address] 80515 WBC (Bld) [#/Vol] 5.3 x10*3/uL Normal 4.4-11.3 [facility] Comment on above: Performed By: #### 5 7021-8 #### SANDRO Jain ([id number]) [facility] ([facility]) [address] [place] [address] 45091 Comprehensive metabolic 2000 panelon 12-25-2024 Albumin BCP dye [Mass/Vol] 4.1 g/dL Normal 3.4-5.0 [facility] Comment on above: Performed By: #### 2 4323-8 #### SANDRO Jain ([id number]) [facility] ([facility]) [address] [place] [address] 96688 ALP [Catalytic activity/Vol] 67 U/L Normal 33-110 [facility] Comment on above: Performed By: #### 2 4323-8 #### SANDRO Jain ([id number]) [facility] ([facility]) [address] [place] [address] 05035 ALT With P-5'-P [Catalytic activity/Vol] 16 U/L Normal 7-45 [facility] Comment on above: Result Comment: Justa ents treated with Sulfasalazine may generate falsely decreased results for ALT. Performed By: #### 2 4323-8 #### SANDRO Jain ([id number]) [facility] ([facility]) [address] [place] [address] 15903 Anion gap [Moles/Vol] 12 mmol/L Normal 10-20 [facility] Comment on above: Performed By: #### 2 4323-8 #### SANDRO Jain ([id number]) [facility] ([facility]) [address] [place] [address] 65402 AST With P-5'-P [Catalytic activity/Vol] 17 U/L Normal 9-39 [facility] Comment on above: Performed By: #### 2 4323-8 #### SANDRO Jain ([id number]) [facility] ([facility]) [address] [place] [address] 40452 Bilirubin [Mass/Vol] 0.5 mg/dL Normal 0.0-1.2 [facility] Comment on above: Performed By: #### 2 4323-8 #### SANDRO Jain ([id number]) [facility] ([facility]) [address] [place] [address] 68658 Calcium [Mass/Vol] 8.8 mg/dL Normal 8.6-10.6 [facility] Comment on above: Performed By: #### 2 4323-8 #### SANDRO Jain ([id number]) [facility] ([facility]) [address] [place] [address] 41680 Chloride [Moles/Vol] 107 mmol/L Normal 98-107 [facility] Comment on above: Performed By: #### 2 4323-8 #### SANDRO Jain ([id number]) [facility] ([facility]) [address] [place] [address] 73010 CO2 [Moles/Vol] 25 mmol/L Normal 21-32 [facility] Comment on above: Performed By: #### 2 4323-8 #### SANDRO Jain ([id number]) [facility] ([facility]) [address] [place] [address] Creatinine [Mass/Vol] 0.81 mg/dL Normal 0.50-1.05 [facility] Comment on above: Performed By: #### 2 4323-8 #### SANDRO Jain ([id number]) [facility] ([facility]) [address] [place] [address] Glomerular filtration rate 89 mL/min/1.73m*2 Normal >60 [facility] Comment on above: Result Comment: Calc ulations of estimated GFR are performed using the 2020 CKD-EPI Study Refit equation without the race variable for the IDMS-Traceable creatinine methods. https://jasn.asnjournals.org/content/early//ASN.030 9169202 Performed By: #### 2 4323-8 #### SANDRO Jain ([id number]) [facility] ([facility]) [address] [place] [address] Glucose [Mass/Vol] 91 mg/dL Normal 74-99 [facility] Comment on above: Performed By: #### 2 4323-8 #### SANDRO Jain ([id number]) [facility] ([facility]) [address] [place] [address] Potassium [Moles/Vol] 4.1 mmol/L Normal 3.5-5.3 [facility] Comment on above: Performed By: #### 2 4323-8 #### SANDRO Jain ([id number]) [facility] ([facility]) [address] [place] [address] Protein [Mass/Vol] 6.4 g/dL Normal 6.4-8.2 [facility] Comment on above: Performed By: #### 2 4323-8 #### SANDRO Jain ([id number]) [facility] ([facility]) [address] [place] [address] Sodium [Moles/Vol] 140 mmol/L Normal 136-145 [facility] Comment on above: Performed By: #### 2 4323-8 #### SANDRO Jain ([id number]) [facility] ([facility]) [address] [place] [address] 17683 Urea nitrogen [Mass/Vol] 14 mg/dL Normal 6-23 [facility] Comment on above: Performed By: #### 2 4323-8 #### SANDRO Jain ([id number]) [facility] ([facility]) [address] [place] [address] 27415 PT and aPTT panel Coag (PPP) on 12-25-2024 aPTT Coag (PPP) [Time] 29 s Normal 26-36 [facility] Comment on above: Order Comment: The A PTT is no longer used for monitoring Unfractionated Heparin Therapy. For monitoring Heparin Therapy, use the Heparin Assay. Performed By: #### 3 4529-8 #### SANDOR Jain ([id number]) [facility] ([facility]) [address] [place] [address] 40139 INR Coag (PPP) [Relative time] 1.0 Normal 0.9-1.1 [facility] Comment on above: Order Comment: The A PTT is no longer used for monitoring Unfractionated Heparin Therapy. For monitoring Heparin Therapy, use the Heparin Assay. Performed By: #### 3 4529-8 #### SANDRO Jain ([id number]) [facility] ([facility]) [address] [place] [address] 77045 PT Coag (PPP) [Time] 11.2 s Normal 9.8-12.4 [facility] Comment on above: Order Comment: The A PTT is no longer used for monitoring Unfractionated Heparin Therapy. For monitoring Heparin Therapy, use the Heparin Assay. Performed By: #### 3 4529-8 #### SANDRO Jain ([id number]) [facility] ([facility]) [address] [place] [address] 15969 Staphylococcus aureus.methic illin resistant isolateon 12-25-2024 MRSA isol Org specific cx Ql (Nose) Test: Staphylococcus aureus/MRSA colonization, Culture Specimen Source: Nares/Axilla/Groin Specimen Type: Swab Specimen Date: 12/25/2024 1018 Result Date: 12/26/2024 1405 Result Status: Final result Abnormal: No Resulting Lab: [facility] [address] [place] [address] CULTURE No Staphylococcus aureus isolated Normal [facility] Comment on above: Performed By: #### 5 2969-3 #### SANDRO Jain ([id number]) [facility] ([facility]) [address] [place], [place] [address] Urinalysis complete W Reflex Culture panel (U)on 12-25-2024 Appearance (U) Clear Normal Clear [facility] Comment on above: Performed By: #### 5 8077-9 #### SANDRO Jain ([id number]) [facility] ([facility]) [address] [place], [place] [address] Bilirubin (U) [Mass/Vol] Negative Normal NEGATIVE [facility] Comment on above: Performed By: #### 5 8077-9 #### SANDRO Jain ([id number]) [facility] ([facility]) [address] [place] [address] 75109 Color (U) Colorless Normal Light-Yellow , Yellow, Dark-Yellow [facility] Comment on above: Performed By: #### 5 8077-9 #### SANDRO Jain ([id number]) [facility] ([facility]) [address] [place] [address] 59390 Glucose Auto test strip (U) [Mass/Vol] Normal Normal Normal [facility] Comment on above: Performed By: #### 5 8077-9 #### SANDRO Jain ([id number]) [facility] ([facility]) [address] [place] [address] 33171 Ketones (U) [Mass/Vol] Negative Normal NEGATIVE [facility] Comment on above: Performed By: #### 5 8077-9 #### SANDRO Jain ([id number]) [facility] ([facility]) [address] [place] [address] 75157 Leukocyte esterase Auto test strip Ql (U) Negative Normal NEGATIVE [facility] Comment on above: Performed By: #### 5 8077-9 #### SANDRO Jain ([id number]) [facility] ([facility]) [address] [place] [address] 99518 Nitrite Auto test strip Ql (U) Negative Normal NEGATIVE [facility] Comment on above: Performed By: #### 5 8077-9 #### SANDRO Jain ([id number]) [facility] ([facility]) [address] [place] [address] 70730 pH (U) 6.0 [pH] Normal 5.0, 5.5, 6.0, 6.5, 7.0, 7.5, 8.0 [facility] Comment on above: Performed By: #### 5 [id number] #### SANDRO Jain ([id number]) [facility] ([facility]) [address] [place] [id number] Protein (U) [Mass/Vol] Negative Normal NEGAT JANENE, 10 (TRACE), 20 (TRACE) [facility] Comment on above: Performed By: #### [id number] #### SANDRO Jain ([id number]) [facility] ([facility]) [address] [place] [id number] RBC (U) [#/Vol] Negative Normal NEGATIVE [facility] Comment on above: Performed By: #### 5 8077-9 #### SANDRO Jain ([id number]) [facility] ([facility]) [address] [place] [id number] Specific gravity (U) [Rel density] 1.010 Normal 1.005-1.035 [facility] Comment on above: Performed By: #### 5 8077-9 #### SANDRO Jain ([id number]) [facility] ([facility]) [address] [place] [id number] Urobilinogen (U) [Mass/Vol] Normal Normal Normal [facility] Comment on above: Performed By: #### 5 8077-9 #### SANDRO Jain ([id number]) [facility] ([facility]) [address] [place], [place] [address] XR CHEST 2 VIEWSon 5 XR CHEST 2 VIEWS Interpreted By: Lilly Gentile and Nadeau Simon STUDY: XR CHEST 2 VIEWS; 12/25/2024 11:01 am INDICATION: Signs/Symptoms:pre surgery evaluaiton. ,I34.0 Nonrheumatic mitral (valve) insufficiency COMPARISON: None. ACCESSION NUMBER(S): [id number] ORDERING CLINICIAN: GORDON ARMSTRONG FINDINGS: PA and lateral radiographs of the chest were provided. Left subclavian approach pacemaker with leads visualized projecting over the right ventricle, right atrial appendage, and coronary sinus. CARDIOMEDIASTINAL SILHOUETTE: Cardiomediastinal silhouette is normal in size and configuration. LUNGS: Lungs are clear without evidence of pleural effusion or pneumothorax. ABDOMEN: No remarkable upper abdominal findings. BONES: No acute osseous changes. IMPRESSION: 1. No evidence of acute cardiopulmonary process. I personally reviewed the images/study and I agree with the findings as stated by Aries Roldan D.O. (assistant vice president). This study was interpreted at [place], [place]. MACRO: None Signed by: Lilly Rodriguez 12/25/2024 2:51 PM Dictation workstation: [id number] Normal [facility] XR Chest 2 Viewson 5 1. No evidence of acute cardiopulmonary process. I personally reviewed the images/study and I agree with the findings as stated by Aries Roldan D.O. (assistant vice president). This study was interpreted at [place], [place]. MACRO: None Signed by: Lilly Rodriguez 12/25/2024 2:51 PM Dictation workstation: [id number] [facility] Interpreted By: Lilly Gentile and Nadeau Simon STUDY: XR CHEST 2 VIEWS; 12/25/2024 11:01 am INDICATION: Signs/Symptoms:pre surgery evaluaiton. ,I34.0 Nonrheumatic mitral (valve) insufficiency COMPARISON: None. ACCESSION NUMBER(S): [id number] ORDERING CLINICIAN: GORDON ARMSTRONG FINDINGS: PA and lateral radiographs of the chest were provided. Left subclavian approach pacemaker with leads visualized projecting over the right ventricle, right atrial appendage, and coronary sinus. CARDIOMEDIASTINAL SILHOUETTE: Cardiomediastinal silhouette is normal in size and configuration. LUNGS: Lungs are clear without evidence of pleural effusion or pneumothorax. ABDOMEN: No remarkable upper abdominal findings. BONES: No acute osseous changes. [facility] Lilly Gentile MD - 12/25/2024 Interpreted By: Lilly Gentile and Nadeau Simon STUDY: XR CHEST 2 VIEWS; 12/25/2024 11:01 am INDICATION: Signs/Symptoms:pre surgery evaluaiton. ,I34.0 Nonrheumatic mitral (valve) insufficiency COMPARISON: None. ACCESSION NUMBER(S): [id number] ORDERING CLINICIAN: GORDON ARMSTRONG FINDINGS: PA and lateral radiographs of the chest were provided. Left subclavian approach pacemaker with leads visualized projecting over the right ventricle, right atrial appendage, and coronary sinus. CARDIOMEDIASTINAL SILHOUETTE: Cardiomediastinal silhouette is normal in size and configuration. LUNGS: Lungs are clear without evidence of pleural effusion or pneumothorax. ABDOMEN: No remarkable upper abdominal findings. BONES: No acute osseous changes. IMPRESSION: 1. No evidence of acute cardiopulmonary process. I personally reviewed the images/study and I agree with the findings as stated by Aries Roldan D.O. (assistant vice president). This study was interpreted at [place], [place]. MACRO: None Signed by: Lilly Rodriguez 12/25/2024 2:51 PM Dictation workstation: [id number] [facility] Work Phone: Radiology Study observation (narrative) [facility] Work Phone: XR Chest 2 ViewsOrdered By: Lilly Rodriguez on 12-25-[address] [facility] Work Phone: No Panel Informationon 11-17 Study performed outside the system. Official study report is not available here and may be obtained from the performing facility. [facility] No Panel InformationOrdered By: Documentation Systemgenerated on 11-17-[address] [facility] Work Phone: LABORATORYOrdered By: Marquita Mckinley on 11-16-2024 Beta HCG ( test) Ql (U) Negative (11/16/24 6:56 AM) [facility] Work Phone: .Auto Diffon 11-13-2024 Basophil, Absolute 0.0 10 3/mcL Normal 0.0-0.3 [facility] Comment on above: Performed By: #### P RO, ADIFF, CBC, GFR, ANEU, BMP #### [address] [address] Basophils/100 WBC (Bld) 0.5 % Normal 0.0-2.5 [facility] Comment on above: Performed By: #### P RO, ADIFF, CBC, GFR, ANEU, BMP #### [address] [address] Eosinophil, Absolute 0.0 10 3/mcL Normal 0.0-0.7 [facility] Comment on above: Performed By: #### P RO, ADIFF, CBC, GFR, ANEU, BMP #### [address] [address] Eosinophils/100 WBC (Bld) 0.7 % Normal 0.0-6.0 [place] Comment on above: Performed By: #### P RO, ADIFF, CBC, GFR, ANEU, BMP #### [address] [address] Lymphocyte, Absolute 2.0 10 3/mcL Normal 0.9-4.3 [facility] Comment on above: Performed By: #### P RO, ADIFF, CBC, GFR, ANEU, BMP #### [address] [address] Lymphocytes/100 WBC (Bld) 29.1 % Normal 20.0-40.0 [place] Comment on above: Performed By: #### P RO, ADIFF, CBC, GFR, ANEU, BMP #### [address] [address] Monocyte, Absolute 0.4 10 3/mcL Normal 0.1-1.4 [facility] Comment on above: Performed By: #### P RO, ADIFF, CBC, GFR, ANEU, BMP #### [address] [address] Monocytes/100 WBC (Bld) 6.2 % Normal 2.0-13.0 [facility] Comment on above: Performed By: #### P RO, ADIFF, CBC, GFR, ANEU, BMP #### [address] [address] Neutrophils/100 WBC (Bld) 63.5 % Normal 50.0-75.0 [place] Comment on above: Performed By: #### P RO, ADIFF, CBC, GFR, ANEU, BMP #### [address] [address] .GFRon 11-13-2024 Estimated Glomerular Filtration Rate 70 ml/min/1.73sqm Normal [facility] Comment on above: Result Comment: Stages of Chronic Kidney Disease (CKD) Stage Description eGFR(ml/min/1.73 sq.m.) CKD 1 Normal kidney function or >=90 normal kindney function with possible kidney damage (ex. Proteinuria) CKD 2 Kidney damage with mild loss 60-89 of kidney function CKD 3a Mild to moderate loss of kidney 45-59 function CKD 3b Moderate to severe loss of 30-44 of kindey function CKD 4 Severe loss of kidney function 15-29 CKD 5 Kidney failure <15 Note: (go live 2024) the eGFR calculation was updated to the 2020 CKD-EPI creatinine equation without a race factor to calculate the eGFR results. Performed By: #### P RO, ADIFF, CBC, GFR, ANEU, BMP #### [address] [address] .NEUABSon 11-13-2024 Neutrophil, Absolute 4.3 10 3/mcL Normal 2.3-8.1 [facility] Comment on above: Performed By: #### P RO, ADIFF, CBC, GFR, ANEU, BMP #### [place] [id number] BMPon 11-13-2024 BUN/Creatinine Ratio 14 ratio Normal 7-27 [facility] Comment on above: Performed By: #### P RO, ADIFF, CBC, GFR, ANEU, BMP #### [place] [address] Calcium [Mass/Vol] 8.4 mg/dL Normal 8.4-10.2 [facility] Comment on above: Performed By: #### P RO, ADIFF, CBC, GFR, ANEU, BMP #### [place] [address] Chloride [Moles/Vol] 106 mmol/L Normal 98-107 [facility] Comment on above: Performed By: #### P RO, ADIFF, CBC, GFR, ANEU, BMP #### [place] [address] CO2 [Moles/Vol] 28 mmol/L Normal 22-29 [place] Comment on above: Performed By: #### P RO, ADIFF, CBC, GFR, ANEU, BMP #### [place] [address] Creatinine [Mass/Vol] 0.99 mg/dL High 0.51-0.95 [facility] Comment on above: Performed By: #### P RO, ADIFF, CBC, GFR, ANEU, BMP #### [place] [id number] Electrolyte Balance 8.0 mEq/L Normal 4.0-15.0 [facility] Comment on above: Performed By: #### P RO, ADIFF, CBC, GFR, ANEU, BMP #### [place] [address] Glucose [Mass/Vol] 98 mg/dL Normal 70-105 [facility] Comment on above: Performed By: #### P RO, ADIFF, CBC, GFR, ANEU, BMP #### [address] [address] Potassium [Moles/Vol] 3.9 mmol/L Normal 3.5-5.1 [facility] Comment on above: Performed By: #### P RO, ADIFF, CBC, GFR, ANEU, BMP #### [place] [address] Sodium [Moles/Vol] 142 mmol/L Normal 136-145 [facility] Comment on above: Performed By: #### P RO, ADIFF, CBC, GFR, ANEU, BMP #### [place] [address] Urea nitrogen [Mass/Vol] 14 mg/dL Normal 7-18 [place] Comment on above: Performed By: #### P RO, ADIFF, CBC, GFR, ANEU, BMP #### [place] [address] CBCon 11-13-2024 Erythrocyte distribution width (RBC) [Ratio] 13.8 % Normal 11.5-15.5 [place] Comment on above: Performed By: #### P RO, ADIFF, CBC, GFR, ANEU, BMP #### [place] [address] Hematocrit (Bld) [Volume fraction] 41.2 % Normal 34.0-46.0 [place] Comment on above: Performed By: #### P RO, ADIFF, CBC, GFR, ANEU, BMP #### [place] [address] Hgb 13.8 G/dL Normal 12.0-16.0 [place] Comment on above: Performed By: #### P RO, ADIFF, CBC, GFR, ANEU, BMP #### [place] [address] MCH (RBC) [Entitic mass] 28.6 pg Normal 27.0-33.0 [place] Comment on above: Performed By: #### P RO, ADIFF, CBC, GFR, ANEU, BMP #### [address] [address] MCHC 33.5 G/dL Normal 32.0-36.0 [place] Comment on above: Performed By: #### P RO, ADIFF, CBC, GFR, ANEU, BMP #### [address] [address] MCV (RBC) [Entitic vol] 85.2 fL Normal 80.0-99.0 [facility] Comment on above: Performed By: #### P RO, ADIFF, CBC, GFR, ANEU, BMP #### [place] [id number] Platelet 160 10 3/mcL Normal 150-450 [place] Comment on above: Performed By: #### P RO, ADIFF, CBC, GFR, ANEU, BMP #### [place] [id number] Platelet mean volume (Bld) [Entitic vol] 10.7 fL High 6.6-10.5 [place] Comment on above: Performed By: #### P RO, ADIFF, CBC, GFR, ANEU, BMP #### [place] [id number] RBC 4.83 10 6/mcL Normal 4.10-5.30 [place] Comment on above: Performed By: #### P RO, ADIFF, CBC, GFR, ANEU, BMP #### [place] [id number] WBC 6.7 10 3/mcL Normal 4.5-10.8 [place] Comment on above: Performed By: #### P RO, ADIFF, CBC, GFR, ANEU, BMP #### [place] [address] LABORATORYOrdered By: SYSTEM SYSTEM on 11-13-2024 Basophils (Bld) [#/Vol] 0.0 103/mcL Normal 0.0 - 0.3 10^3/mcL AO Workflow SS Basophils/100 WBC (Bld) 0.5 % Normal 0.0 - 2.5 % AO Workflow SS Calcium [Mass/Vol] 8.4 mg/dL Normal 8.4 - 10. 2 mg/dL AO ADM SS Chloride [Moles/Vol] 106 mmol/L Normal 98 - 10 7 mmol/L AO ADM SS CO2 [Moles/Vol] 28 mmol/L Normal 22 - 29 mmol/L AO ADM SS Creatinine [Mass/Vol] 0.99 mg/dL High 0.51 - 0.95 mg/dL AO ADM SS Electrolyte Balance 8.0 mEq/L Normal 4.0 - 15 .0 mEq/L AO ADM SS Eosinophil, Absolute 0.0 103/mcL Normal 0.0 - 0 .7 10^3/mcL AO Workflow SS Eosinophils/100 WBC (Bld) 0.7 % Normal 0.0 - 6.0 % AO Workflow SS Erythrocyte distribution width (RBC) [Ratio] 13.8 % Normal 11.5 - 15.5 % AO Workflow SS Estimated Glomerular Filtration Rate 70 ml/min/1.73sqm Invalid Interpretation Code AO Chemistry S Comment on above: Interpretive Data: Stages of Chronic Kidney Disease (CKD) Stage Description eGFR(ml/min/1.73 sq.m.) CKD 1 Normal kidney function or >=90 normal kindney function with possible kidney damage (ex. Proteinuria) CKD 2 Kidney damage with mild loss 60-89 of kidney function CKD 3a Mild to moderate loss of kidney 45-59 function CKD 3b Moderate to severe loss of 30-44 of kindey function CKD 4 Severe loss of kidney function 15-29 CKD 5 Kidney failure <15 Note: (go live 2024) the eGFR calculation was updated to the 2020 CKD-EPI creatinine equation without a race factor to calculate the eGFR results. Glucose [Mass/Vol] 98 mg/dL Normal 70 - 105 mg/dL AO ADM SS Hematocrit (Bld) [Volume fraction] 41.2 % Normal 34.0 - 46.0 % AO Workflow SS Hemoglobin (Bld) [Mass/Vol] 13.8 G/dL Normal 12.0 - 16.0 G/dL AO Workflow SS INR Coag (PPP) [Relative time] 1.0 {INR} Invalid Interpretation Code AO Hemo[facility] SS Comment on above: Interpretive Data: Jorge L brandt [employer] (CHEST, 1991, 102:312S-25S) recommended therapeutic range for oral anticoagulant therapy is: LOW RISK: Prophylaxis of venous thrombosis INR: 2.0-3.0 Treatment of pulmonary embolism 2.0-3.0 Prevention of systemic embolism 2.0-3.0 HIGH RISK: Mechanical prosthetic valves 2.5-3.5 Lymphocytes (Bld) [#/Vol] 2.0 103/mcL Normal 0.9 - 4.3 10^3/mcL AO Workflow SS Lymphocytes/100 WBC (Bld) 29.1 % Normal 20.0 - 40.0 % AO Workflow SS MCH (RBC) [Entitic mass] 28.6 pg Normal 27. 0 - 33.0 pg AO Workflow SS MCHC 33.5 G/dL Normal 32.0 - 36.0 G/dL AO Workflow SS MCV (RBC) [Entitic vol] 85.2 fL Normal 80.0 - 99.0 fL AO Workflow SS Monocytes (Bld) [#/Vol] 0.4 103/mcL Normal 0.1 - 1.4 10^3/mcL AO Workflow SS Monocytes/100 WBC (Bld) 6.2 % Normal 2.0 - 13.0 % AO Workflow SS Neutrophils (Bld) [#/Vol] 4.3 103/mcL Normal 2.3 - 8.1 10^3/mcL AO Workflow SS Neutrophils/100 WBC (Bld) 63.5 % Normal 50.0 - 75.0 % AO Workflow SS Platelet mean volume (Bld) [Entitic vol] 10.7 fL High 6.6 - 10.5 fL AO Workflow SS Platelets (Bld) [#/Vol] 160 103/mcL Normal 150 - 450 10^3/mcL AO Workflow SS Potassium [Moles/Vol] 3.9 mmol/L Normal 3.5 - 5.1 mmol/L AO ADM SS PT Coag (PPP) [Time] 10.9 s Normal 9.0 - 1 4.4 seconds AO [facility] SS RBC (Bld) [#/Vol] 4.83 106/mcL Normal 4.10 - 5.3 0 10^6/mcL AO Workflow SS Sodium [Moles/Vol] 142 mmol/L Normal 136 - 145 mmol/L AO ADM SS Urea nitrogen [Mass/Vol] 14 mg/dL Normal 7 - 18 mg/d L AO ADM SS Urea nitrogen/Creatinine [Mass ratio] 14 ratio Normal 7 - 27 ratio AO ADM SS WBC (Bld) [#/Vol] 6.7 103/mcL Normal 4.5 - 10.8 10^3/mcL AO Workflow SS PROon 11-13-2024 PT Coag (PPP) [Time] 10.9 s Normal 9.0-14.4 [facility] Comment on above: Performed By: #### P RO, ADIFF, CBC, GFR, ANEU, BMP #### [facility] [address] [place], [place] [address] PT International Ratio 1.0 Normal [facility] Comment on above: Result Comment: [employer] (CHEST, 1992, 102:312S-25S) recommended therapeutic range for oral anticoagulant therapy is: LOW RISK: Prophylaxis of venous thrombosis INR: 2.0-3.0 Treatment of pulmonary embolism 2.0-3.0 Prevention of systemic embolism 2.0-3.0 HIGH RISK: Mechanical prosthetic valves 2.5-3.5 Performed By: #### P RO, ADIFF, CBC, GFR, ANEU, BMP #### [place] [id number] [place], [place] [address] Laboratory - Microbiology an d Antimicrobial susceptibilityOrdered By: [facility] on 10-31-2024 Bacteria identified Cx Nom (Bld) Culture has been received in lab and is no growth to date. Culture will be held for four weeks. [facility] No Panel Informationon 10-31 Microscopic examination of blood, culture Culture has been received in lab and is no growth to date. Routine cultures are held for 5 days. [facility] Work Phone: CV ECHO COMPLETE WITHOUT CON TRASTon 09-08-2024 CV ECHO COMPLETE WITHOUT CONTRAST [place] [address] Patient: MICHELL WOOTEN Phone#: : [phone] Age: 48 Gender: F Pt. Type: Out Account: [id number] Location: [facility] Ordering: DR. SWAPNA MANN Exam Date: 09/08/2024/12:56 Family Phys: Charge Code: [id number] Physician: Dickson Order #: [id number] Dose#: PROCEDURE: ECHOCARDIOGRAM WITH DOPPLER AND COLOR FLOW HISTORY: Patient is a 48-year-old female with history of cardiomyopathy INDICATIONS: Cardiomyopathy COMPARISON: None. TECHNIQUE: A 2-D ultrasound, color spectral Doppler and M-mode evaluation of the heart and great vessels. PATIENT MEASUREMENTS: Height (in.): 69 BSA: 2.2 Weight (lbs.): 230 BP: 145/88 Tech Writer: SHAY M MODE 2D MEASUREMENTS AND CALCULATIONS: LVIDd: 5.62 cm LVIDs: 3.99 cm IVSd: 0.68 cm LVPWd: 0.90 cm LVOT diam: 2.04 cm FS: 28.90 % Ao Root diam: 2.74 cm LA diam: 4.5 cm LA Volume Index: 41 mL/m2 LA A4 Area: 20.67 cm2 RA A4 Area: 15.6 cm2 RVDd: 3.6 cm TAPSE: 23.4 mm DOPPLER MEASUREMENTS AND CALCULATIONS MITRAL MV E MAX rosa: 1.21 m/s MV A MAX rosa: 0.66 m/s MV E-A ratio: 1.83 MVA VTI 1.73 cm2 MV V2 max: 1.17 m/s MV max P.48 mm[Hg] Continued Report - Page 2 of 3 Patient: MICHELL WOOTEN Phone#: : [phone] Age: 48 Gender: F Pt. Type: Out Account: [id number] Location: [facility] Ordering: DR. SWAPNA MANN Exam Date: 09/08/2024/12:56 Family Phys: Charge Code: [id number] Physician: Dickson Order #: [id number] Dose#: MV V2 mean: 0.72 m/s MV mean P.30 mm[Hg] MV V2 VTI: 34.42 cm MV PHT: 101.63 ms MVA PHT 2.16 cm2 ERO: 0.37 cm2 MR PISA rad: 1.0 cm Alias velocity: 0.36 m/sec Reg Vol 77.99 ml Lat Peak E' Rosa 18 cm/sec Septal Peak E' ROSA 9 cm/sec E/E' lateral 7 E/E' medial 13.1 AORTIC Ao V2 max: 1.52 m/s Ao max P.22 mm[Hg] Ao V2 mean: 0.97 m/s Ao mean P.43 mm[Hg] Ao V2 VTI: 32.54 cm LESLYE (V Max): 1.98 cm2 LESLYE (VTI): 1.83 cm2 LV V1 Max 0.92 m/s LV V1 Max PG 3.39 mm[Hg] LV V1 Mean PG 1.78 mm[Hg] LV V1 mean 0.63 m/s LV V1 VTI 18.32 cm PULMONIC PA V2 Max 1.06 m/s PA Max PG 4.49 mm[Hg] TRICUSPID TR Max Rosa 2.21 m/s TR max PG 19.58 mm[Hg] RVSP 24 mm Hg 2D/M-MODE AND COLOR FLOW LEFT VENTRICLE: Left ventricle is normal in size and thickness. Systolic ejection fraction is 50-55%. There are no regional wall motion abnormality seen. Indeterminate diastolic function WALL MOTION: 1 - Basal anterior: Normal. 7 - Mid anterior: Normal. 13 - Apical anterior: Normal. 2 - Basal anteroseptal: Normal. 8 - Mid anteroseptal: Normal. 14 - Apical septal: Normal. Continued Report - Page 3 of 3 Patient: MICHELL WOOTEN Phone#: : [phone] Age: 48 Gender: F Pt. Type: Out Account: [id number] Location: 052 Ordering: DR. SWAPNA MANN Exam Date: 09/08/2024/12:56 Family Phys: Charge Code: [id number] Physician: Dickson Order #: [id number] Dose#: 3 - Basal inferoseptal: Normal. 9 - Mid inferoseptal: Normal. 15 - Apical inferior: Normal. 4 - Basal inferior: Normal. 10-Mid inferior: Normal. 16 - Apical lateral: Normal. 5 - Basal inferolateral: Normal. 11-Mid inferolateral: Normal. 6 - Basal anterolateral: Normal. 12-Mid anterolateral: Normal. RIGHT VENTRICLE: Right ventricle is normal in size and systolic function. There is pacemaker/ICD lead seen. LEFT ATRIUM: Left atrium is mild to moderately enlarged RIGHT ATRIUM: Right atrium is normal in size. ATRIAL SEPTUM: There is no large interatrial shunt seen. PFO was not assessed MITRAL VALVE: Mitral valve leaflets appear normal in thickness. There is severe posterolaterally directed mitral valve regurgitation which is primary in etiology. Exact mechanism is unclear. Calculated ER 0 is 0.4 cm with regurgitant volume of 78 ml. There is no stenosis seen. TRICUSPID VALVE: Tricuspid valve is normal in thickness. There is mild regurgitation no stenosis seen. AORTIC VALVE: Aortic valve is trileaflet. There is no regurgitation or stenosis seen PULMONIC VALVE: Pulmonic valve is inadequately visualized. There is no regurgitation or stenosis seen. AORTIC ROOT: Aortic root is normal in size AORTIC ARCH: Inadequately visualized DESC THORACIC AORTA: Inadequately visualized. Doppler shows normal flow. IVC/SVC: IVC is normal size more than 50% collapse of inspiration. Estimated atrial pressure is 3 mm Hg PULMONARY VEINS: Systolic flow blunting seen. PERICARDIUM: There is no pericardial effusion seen CONCLUSION: 1. Left ventricle normal in size and thickness. Systolic ejection fraction is 50-55% with normal wall motion. 2. Left atrium is mild to moderately enlarged 3. Mitral valve is appear normal thickness. There is severe posterior laterally directed mitral valve regurgitation which is primary in etiology. Exact mechan (more content not included)... Normal [facility] 04-18-2024 [facility] Office Visit (INTMWS) MICHELL WOOTEN ([id number]) 1975 F Date Time Provider Department 04/18/24 11:00 AM GILL KNIGHT INTMWS During your visit today, we recorded the following information about you: Pulse Blood pressure Weight 77/minute 110/76 106.7 kg Gill Knight, PUTTY REMOVER.GASOLINE TESTER 04/18/2024 11:12 AM Signed CC: Patient presents with: Pain: in left bottom of foot aright at the heel area. wrapping it does make it better HPI Michell Wooten is a 48 year old adult who presents today for above. Reports pain in the bottom of her left heel for a couple weeks. Described as: pulling and tightness Cause: denies injury, strenuous activities, heavy lifting Pain is aggravated by: taking the first few steps first thing in the morning or after a long period of inactivity. Pain improves the more she walks but then starts to get worse again Denies swelling, redness, bruising, numbness, tingling Treatments tried: streching, massage, ice, and compression with YUDI wrap Ever had pain like this before: no Review of Systems See HPI PAST MEDICAL HISTORY Diagnosis Date Abnormal uterine bleeding (AUB) 12/30/2021 Adenomyosis 12/30/2021 Asthma Atrial tachycardia (HCC) 2009 Atrioventricular block, complete (HCC) 07/31/2005 3rd degree AVB Bipolar affective (HCC) Dr. 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 LORazepam (ATIVAN) 0.5 mg Take 0.5 mg by mouth twice daily as needed. FAMILY HISTORY Problem Relation Age of Onset Asthma Mother Breast Cancer Mother developed age 61 other (leukemia) Mother 60 Hypertension Father Diabetes Father Coronary Artery Disease Father other (LIVER DISEASE) Father R/T ETOH ABUSE Genitourinary () Paternal Grandfather Diabetes Brother Social History Tobacco Use Smoking status: Former Current packs/day: 0.00 Average packs/day: 2.0 packs/day for 15.0 years (30.0 ttl pk-yrs) Types: Cigarettes Start date: 12/08/2002 Quit date: 12/08/2017 Years since quittin.3 Smokeless tobacco: Never Vaping Use Vaping status: Former Start date: 12/08/2017 Quit date: 01/08/2018 Substance Use Topics Alcohol use: Not Currently Drug use: Not Currently Comment: quit pot 2016. Medical Marijuana 2020. BP 110/76 Pulse 77 Wt 106.7 kg (235 lb 3.7 oz) LMP 12/29/2021 (Exact Date) SpO2 98% BMI 34.24 kg/m? Physical Exam Vitals reviewed. Constitutional: Appearance: Normal appearance. Cardiovascular: Pulses: Dorsalis pedis pulses are 2+ on the left side. Musculoskeletal: Left foot: Normal range of motion. No deformity. Feet: Feet: Left foot: Skin integrity: Skin integrity normal. Toenail Condition: Left toenails are normal. Comments: Full and painless ROM of the left foot Neurological: Mental Status: Viet[place] is alert. ASSESSMENT/PLAN: 1. Pain of left heel - ICD9: 729.5, ICD10: M79.672 Suspect plantar fascitis. No injury, imaging is not indicated at this time. Conservative treatment and symptom management discussed. Given handout from [email or web address].org with this information along with stretching exercises. Advised patient exercises must be done consistently for effectiveness. Follow-up in 3-4 weeks if symptoms don't improve or sooner if worsening. Gill Knight APRN.GASOLINE TESTER Prescription instructions reviewed with patient as applicable. Potential red flag symptoms discussed with the patient. Reviewed appropriate action plan to take if red flag symptoms occur. Patient agreeabl (more content not included)... Normal [facility] CNPNon 04-17-2024 CNPN Telephone (INTMWS) MICHELL WOOTEN ([id number]) 1975 F Date Time Provider Department 04/17/24 MIHIR GLOVER During your visit today, we recorded the following information about you: Balbina Lamas RN 04/17/2024 1:37 PM Signed Patient calling to request to make an appointment to have left foot evaluated. Reports left foot discomfort for approximately 2 weeks. Denies injury to foot. Discomfort is on the underside of foot. Reports most discomfort in the mornings when she gets up or when puts weight on foot at times. Discomfort varies day to day. No swelling, bruising or numbness/tingling. Appt made with Gill Knight CNP for 04/18/24 per patient request. Balbina Lamas RN Allergies As of Date: 04/17/2024 Noted Allergy Reaction ADHESIVE TAPE-SILICONES 08/24/2006 ANTIHISTAMINE (DIPHENHYDRAMINE) 12/04/2021 14 - Other: See Comments Comments: Causes Panic Attacks LATEX 08/24/2006 LISINOPRIL 10/10/2012 14 - Other: See Comments Comments: Neck pain MORPHINE 08/09/2023 4 - Hives NAPROXEN 01/27/2005 Comments: PALPITATIONS PAXIL (PAROXETINE) 01/27/2005 Comments: PALPITATIONS SEROTONIN 12/11/2022 5 - Intolerance Date Reviewed: 09/06/2023 Reviewed by: Carlie Robins LPN - Fully Assessed Reason for Visit: Patient Request [0561] Prescriptions as of 04/17/2024 - omeprazole (PRILOSEC) 40 mg capsule Take 1 capsule by mouth once daily. - LORazepam (ATIVAN) 0.5 mg Take 0.5 mg by mouth twice daily as needed. 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] Headache(784.0) [R51] 10/27/2017 Unspecified schizophrenia [295.9] 11/19/2011 WEIGHT GAIN, ABNORMAL [R63.5] 06/12/2005 11/26/2015 DYSMETABOLIC SYNDROME X [E88.810] 06/12/2005 BIPOLAR (DEPRESSION) AFFECTIVE, DEPRESSED( In f*06/12/2005 11/19/2011 Congenital third degree heart block [Q24.6] 07/31/2005 BREAST NIPPLE DISCHARGE [N64.59] 03/25/2006 11/26/2015 PTSD (post-traumatic stress disorder) [F43.10] 11/19/2011 10/27/2017 Panic disorder without agoraphobia [F41.0] 11/19/2011 10/27/2017 Constipation [K59.00] 02/19/2016 ICD (implantable cardioverter-defibri llator) in*05/10/2009 Bipolar affective disorder (HCC) [F31.9] 12/01/2018 Obesity, Class I, BMI 30-34.9 [E66.811] 08/21/2020 PLMD (periodic limb movement disorder) [G47.61] 08/23/2020 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/2012 03/26/2021 Iron deficiency anemia due to chronic blood los*11/20/2021 10/30/2022 Adenomyosis [N80.03] 12/30/2021 Abnormal uterine bleeding (AUB) [N93.9] 12/30/2021 10/30/2022 Thyroid nodule [E04.1] 01/07/2023 Blood in stool [K92.1] 08/09/2023 Gastroesophageal reflux disease without esophag*08/09/2023 Tubular adenoma of colon [D12.6] 08/20/2023 Chronic gastritis without bleeding [K29.50] 08/20/2023 Encounter Status:Closed by BALBINA LAMAS on 04/17/24 Normal [facility] Emergency Department Summary on 02-08-2024 Emergency Department Summary [facility] Medical Records Department [address] [place] [address] Emergency Department Summary 02/08/24 MR#: [id number] Acct: [id number] Name: MICHELL WOOTEN Rep #: [id number] : 1975 48 From: Justin Olson DO PCP: Dr. Mihir Glover MD Status:DEP ER Location: ED HPI History of Present Illness Chief Complaint: Back Informant: patient Onset/Context/Timing Onset: Days (2) Context: Sudden Onset Injury: fall Timing: Continuous Quality: Sharp and Burning Location: Lumbar Worsened by: improves with Movement Relieved by: Nothing Associated Symptoms Associated Symptoms: Radiation to Right Leg and Radiation to Left Leg; Negative for Numbness, Tingling, Fever, Abdominal Pain, Dysuria, Unable to Ambulate, Unable to Transfer, Urinary Retention, Urinary Incontinence, Constipation or Fecal Incontinence Narrative Narrative: Patient presents with low back pain that began after a fall 2 days ago. Patient states she fell on some steps. Patient states she landed on her left hip and buttock area. Patient states her pain radiates down both lower extremities. Patient denies any bowel or bladder changes. Patient denies any saddle anesthesia. Patient denies any paresthesias or weakness. Patient states her pain is sharp and burning. Patient states it is worse with movement. Patient denies any other injuries. [facility] Medical History (Updated 02/08/24 @ 15:[address] Justin Olson DO) Wears glasses Wears dentures Marijuana use Easy bruising Restless legs Migraine headache Heartburn Former smoker Sleep apnea History of edema History of echocardiogram Cardiology follow-up encounter History of pacemaker Iron deficiency anemia PTSD (post-traumatic stress disorder) Deliberate self-cutting Bulimia Panic anxiety syndrome History of complete heart block Home Medications ???Medication ???Instructions ???Recorded ???Last Taken ???Type ondansetron 4 mg disintegrating 4 mg PO Q8H PRN PRN Nausea #10 tabs 03/19/21 Unknown Rx tablet lorazepam 0.5 mg tablet 0.5 mg PO DAILY PRN PRN Anxiety 01/30/22 02/05/22 History hydrocodone-acetamin ophen 5-325mg 1 tab PO Q6H PRN PRN Pain 3 days 02/08/24 Unknown Rx 5mg-325mg #10 TABLETS Allergy/AdvReac Type Severity Reaction Status Date / Time sertraline (From Zoloft) Allergy Mild Other Verified 02/08/24 13:37 tramadol Allergy Nausea Verified 02/08/24 13:37 Antihistamines - AdvReac Other Verified 02/08/24 13:37 Ethylenediamine naproxen AdvReac Other Verified 02/08/24 13:37 paroxetine HCl (From Paxil) AdvReac Other Verified 02/08/24 13:37 Family History Other Cardiac defibrillator in place Surgical History (Updated 02/08/24 @ 14:[address] Justin Olson, DO) Hx of section History of endometrial ablation History of cardiac catheterization History of implantable cardiac defibrillator (ICD) Social History Smoking Status: Unknown if ever smoked ROS ROS ED Constitutional Constitutional ED: Denies chills or fever(s) Eyes Eyes: Denies blurry vision or change in vision ENT ENT ED: Denies rhinorrhea or sore throat Cardiovascular Cardiovascular: Denies chest pain or palpitations Respiratory/Chest Respiratory/Chest: Denies cough or dyspnea Gastrointestinal Gastrointestinal: Denies nausea or vomiting Genitourinary Genitourinary ED: Reports urinary frequency; Denies dysuria or hematuria Musculoskeletal Musculoskeletal: Reports back pain and neck pain Integumentary Denies abscess or rash Neurologic Neurologic: Reports headache(s); Denies weakness Allergic/Immunologic Allergic/Immunologic ED: Denies mouth swelling or urticaria EXAM Physical Exam Const Vital Signs: 02/08/24 13:38 Temperature 96.3 F L Temperature Source Temporal Pulse Rate 67 Respiratory Rate 14 Blood Pressure 138/78 H Blood Pressure Mean 98 Pulse Ox 99 Oxygen Delivery Method Room Air Positive well nourished and well developed General Appearance ED: well developed and NAD HEENT Reports moist mucous membranes Neck supple and no JVD Back/Spine Back/Spine Narrative: There is mild tenderness over the lumbar paraspinal muscles. There is no bony crepitance or step- off noted. Range of motion was limited in all motions of the lumbar spine secondary to pain. Strength is 5/5 bilaterally in the lower extremities. There are no sensory deficits noted. Deep tendon reflexes are 2/4 bilaterally in the lower extremities. Straight leg raises were negative bilaterally. Lumbar Spine / Lower Back: ROM limited and straight leg raise negative bilaterally Extremity normal to inspection General Extremety ED: Negative for edema or tenderness (more content not included)... Normal [facility] Lumbar Spine 2 or 3 Viewson 02-08-2024 Lumbar Spine 2 or 3 Views [facility] Imaging Services [address] [place], [place] [id number] Lumbar Spine 2 or 3 Views MR#: [id number] Acct: [id number] Name: MICHELL WOOTEN Rep #: [id number] : 1975 F 48 From: Fletcher steawrt MD PCP: Dr. Mihir Glover MD Status: [facility] ER Study: Lumbar Spine 2 or 3 Views Date of Exam: Exam# [id number] Ordering Dr: Justin Olson DO [id number] STUDY: X-RAY - LUMBAR SPINE REASON FOR EXAM: Female, 48 years old. Injury/Pain TECHNIQUE: 3 view(s) of the lumbar spine were obtained. COMPARISON: None FINDINGS: There is straightening of the normal lumbar lordosis. There is no substantial scoliosis. There is a normal alignment of the vertebrae. This space narrowing and spondylosis at the L4-L5 and L5-S1 levels. This is worse at the L5-S1 level. The soft tissue structures are unremarkable. RAD/Lumbar Spine 2 or 3 Views IMPRESSION: Degenerative changes of the spine, as detailed above. Electronically Signed: Fletcher Yanez MD at 14:18 EDT , CC: Dr. Justin Olson DO; Dr. Mihir Glover MD Financial Service Professional: Signed Normal [facility] ANES POSTPROC EVALon 024 ANES POSTPROC EVAL HNO ID: [id number] Author: RAMÓN HUTCHISON MD Service: Anesthesiology Author Type: Anesthesiologist Type: Anesthesia Postprocedure Evaluation Filed: 08/09/2023 12:10 Note Text: POST ANESTHESIA EVALUATION NOTE : 1975 Procedure Summary Date: 08/09/23 Room / Location: [facility] Endoscopy Anesthesia Start: 1047 Anesthesia Stop: 1136 Procedures: EGD DIAGNOSTIC COLONOSCOPY DIAGNOSTIC Diagnosis: Blood in stool Constipation, unspecified constipation type Gastroesophageal reflux disease without esophagitis (Constipation) (Established esophageal reflux) Scheduled Providers: Luz Elena Bella MD; Mauricio Hickman APRN.CRNA; Ramón Hutchison MD Responsible Provider: Ramón Hutchison MD Anesthesia Type: MAC ASA Status: 3 Anesthesia Type: MAC Last Vitals Vitals Value Taken Time BP 91/65 08/09/23 1201 Temp 36.1 ?C (97 ?F) 08/09/23 1142 Pulse 62 08/09/23 1208 Resp 17 08/09/23 1208 SpO2 99 % 08/09/23 1208 Vitals shown include unfiled device data. Post Anesthesia Patient Status Patient Evaluation: bedside. Anticipated Disposition: phase 2 then home. Neurological Status: aware and responsive. Pulmonary Status: breathing comfortably on room air Airway Control: returned to baseline unsupported. Cardiovascular Status: stable. Pain Management: clinically adequate Postoperative Hydration: acceptable. Intraoperative Events: no significant anesthesia events Recommendation: continue current plan of care. Anesthesia Observations No Documentation SIGNATURE: Ramón Hutchison MD PATIENT NAME: Michell Wooten DATE: August 09, 2023 TIME: 12:09 PM CSN: [id number] Normal [facility] ANES PRE-OPon 08-09-2023 ANES PRE-OP HNO ID: [id number] Author: RAMÓN HUTCHISON MD Service: Anesthesiology Author Type: Anesthesiologist Type: Anesthesia Preprocedure Evaluation Filed: 08/09/2023 08:17 Note Text: ANESTHESIOLOGY DAY OF SURGERY NOTE : 1975 Procedure Information Date/Time: 08/09/23 1130 Scheduled providers: Luz Elena Bella MD; Mauricio Hickman APRN.PARALEGALS; Ramón Hutchison MD Procedures: EGD DIAGNOSTIC COLONOSCOPY DIAGNOSTIC Location: [facility] Endoscopy Estimated body mass index is 31.75 kg/m? as calculated from the following: Height as of this encounter: 175.3 cm (5' 9). Weight as of this encounter: 97.5 kg (215 lb). Most recent hematocrit and potassium results: Hematocrit 43.8 09/02/2022 Potassium 4.0 09/02/2022 Relevant Problems CARDIO (+) Congenital third degree heart block PULMONARY (+) Asthma I - PHYSICAL EVALUATION AIRWAY Patient intubated: No. Tracheostomy tube not present Mallampati: II. TM distance: >3 FB. Neck ROM: full ROM without neurological symptoms. Mouth opening: adequate. Short neck: no. Thick neck: no Aguilar present: no Microretrognathia/Mi cronagthia/Recessed Chin: No DENTAL Dental findings: edentulous. Additional exam findings: yes. CARDIOVASCULAR Additional comments: Pt has Bi V Pacemaker in situ and pacemaker depoendent at rate of 70-75/min. AICD in place. See Cardiac History and w/u note. Will use a magnet to disable sensing for the AICD. During the procedure for the EGD.. PULMONARY Breath sounds clear to auscultation. II - ANESTHESIA PLAN ASA Score: 3 Anesthetic Plan: MAC The patient is not a current smoker. NPO Status: adequate Beta Luis Monitoring Plan Monitoring plan: standard ASA. Post Procedure Analgesic Plan Postoperative analgesic plan: other. Informed Consent Anesthetic risks, benefits, alternatives, personnel and consent discussed: yes. Patient / Responsible Republican agrees to proceed: yes Patient / Surrogate agrees to blood products: Yes DNR status not reviewed with patient and/or family prior to surgery. Significant changes in the patient condition since the History and Physical, not otherwise documented in primary service progress note: no. Potential Anesthesia issues that may suggest increased risk of complications or contraindication to planned procedure: none. Vitals Value Taken Time BP 122/79 08/09/23 0759 Pulse 72 08/09/23 0759 Resp 20 08/09/23 0759 Temp 36.9 ?C (98.4 ?F) 08/09/23 0759 SpO2 99 % 08/09/23 0759 Outpatient Medications as of 08/09/2023 Medication Sig - LORazepam (ATIVAN) 0.5 mg Take 0.5 mg by mouth twice daily as needed. Facility-Administere d Medications as of 08/09/2023 Medication Dose Route Frequency - lidocaine (PF) 10 mg/mL (1 %) 1-2 mg injection (XYLOCAINE) 0.1-0.2 mL INTRADERMAL PRN - lactated ringers iv infusion 75 mL/hr INTRAVENOUS CONTINUOUS I have interviewed and examined the patient. I have reviewed the medical record and/or the pre-anesthesia evaluation, pertinent labs, and test results. This contains updated information obtained within 48 hours of Surgery/Procedure. SIGNATURE: Ramón Hutchison MD PATIENT NAME: Michell Wooten DATE: August 09, 2023 TIME: 8:13 AM CSN: [id number] Normal [facility] Colonoscopyon 08-09-2023 Colonoscopy [facility] Gastrointestinal Endoscopy Patient Name: Michell Wooten Procedure Date: 08/09/2023 11:01 AM Date of : 1975 Admit Type: Outpatient Age: 47 Room: [facility] Gender: Female Note Status: Finalized Attending MD: Luz Elena Bella MD, [id number] Procedure: Colonoscopy Indications: Constipation Providers: Luz Elena Bella MD Patient Profile: Refer to note in patient chart for documentation of history and physical. Last Colonoscopy: none. The patient's first colonoscopy is today. Referring Physician: Deirdre Ashley MD (Referring MD) Medicines: See the Anesthesia note for documentation of the administered medications Complications: No immediate complications. Requesting Provider: Procedure: Pre-Anesthesia Assessment: - Monitored anesthesia care under the supervision of a PARALEGALS was determined to be medically necessary for this procedure based on review of the patient's medical history, medications, and prior anesthesia history. After I obtained informed consent, the scope was passed under direct vision. Throughout the procedure, the patient's blood pressure, pulse, and oxygen saturations were monitored continuously. The Colonoscope was introduced through the anus and advanced to the cecum, identified by the appendiceal orifice, ileocecal valve and palpation. The colonoscopy was performed without difficulty. The patient tolerated the procedure well. The quality of the bowel preparation was adequate to identify polyps greater than 5 mm in size. The appendiceal orifice and the rectum were photographed. Scope Withdrawal Time: 0 hours 21 minutes 32 seconds Moderate Sedation: MAC anesthesia was administered by the anesthesia team. Total Procedure Duration: 0 hours 26 minutes 35 seconds Findings: The perianal and digital rectal examinations were normal. Non-bleeding internal hemorrhoids were found. A 6 to 8 mm polyp was found in the hepatic flexure. The polyp was sessile. The polyp was removed with a hot snare. Resection and retrieval were complete. Verification of patient identification for the specimen was done by the nurse. Estimated blood loss was minimal. Two semi-pedunculated polyps were found in the descending colon. The polyps were 8 to 12 mm in size. These polyps were removed with a hot snare. Resection and retrieval were complete. Verification of patient identification for the specimen was done by the nurse. To close a defect after polypectomy, one hemostatic clip was successfully placed (MR conditional). Clip product technology scientist: [employer]. There was no bleeding at the end of the procedure. Estimated blood loss was minimal. Two semi-pedunculated polyps were found in the sigmoid colon. The polyps were 10 to 15 mm in size. These polyps were removed with a hot snare. Resection and retrieval were complete. Verification of patient identification for the specimen was done by the nurse. Estimated blood loss was minimal. Impression: - Non-bleeding internal hemorrhoids. - One 6 to 8 mm polyp at the hepatic flexure, removed with a hot snare. Resected and retrieved. - Two 8 to 12 mm polyps in the descending colon, removed with a hot snare. Resected and retrieved. Clip (MR conditional) was placed. Clip product technology scientist: [employer]. - Two 10 to 15 mm polyps in the sigmoid colon, removed with a hot snare. Resected and retrieved. Recommendation: - Repeat colonoscopy for surveillance based on pathology results. - Return to referring physician at the next available appointment. - Patient has a contact number available for emergencies. The signs and symptoms of potential delayed complications were discussed with the patient. Return to normal activities tomorrow. Written discharge instructions were provided to the patient. - Continue present medications. - Resume previous diet. Procedure Code(s): --- Professional --- 68268, Colonoscopy, flexible; with removal of tumor(s), polyp(s), or other lesion(s) by snare technique Diagnosis Code(s): --- Professional --- K59.00, Constipation, unspecified D12.5, Benign neoplasm of sigmoid colon D12.4, Benign neoplasm of descending colon D12.3, Benign neoplasm of transverse colon (hepatic flexure or splenic flexure) K64.8, Other hemorrhoids CPT copyright 2020 [employer]. All rights reserved. The codes documented in this report are preliminary and upon label coder review may be revised to meet current compliance requirements. Attending Participation: I personally performed the entire procedure. Scope In: 11:06:11 AM Scope Out: 11:32:46 AM MD Luz Elena Galvan MD 08/09/2023 11:38:40 AM This report has been signed electronically by Luz Elena Bella MD Number of Addenda: 0 Note Initiated On: 08/09/2023 11:01 AM Estimated Blood Loss: Estimated blood loss was minimal. Normal [facility] HISTORY PHYSICALon HISTORY PHYSICAL HNO ID: [id number] Author: LUZ ELENA BELLA MD Service: General Surgery Author Type: Physician Type: H&P Filed: 08/09/2023 08:51 Note Text: CHIEF COMPLAINT: Consult (Rectal bleeding and constipation. ) HPI: The patient is a 46 year old female referred for endoscopy. Vietta notes the following GI complaints: Vietta notes abdominal pain. The pain occurs in the following locations: It occurs diffusely and is often more of a bloating sensation than true pain. Vietta denies diarrhea. Vietta notes constipation. Vietta denies a change in bowel habits. Vietta denies melena. Vietta notes bright red blood per rectum. Vietta denies hemorrhoids. The patient notes the following upper complaints: Vietta denies abdominal pain.. Vietta notes heartburn. Vietta denies dysphagia. Vietta denies a history of [...] today at the request of Gill Linares APRN.GASOLINE TESTER my opinion and advice regarding constipation, rectal bleeding, reflux and epigastric symptoms. PAST MEDICAL HISTORY PAST MEDICAL HISTORY Diagnosis Date Asthma Atrial tachycardia (HCC) 2009 Atrioventricular block, complete (HCC) 07/31/2005 3rd degree AVB Bipolar affective ([facility]) Dr. Rios Bipolar affective disorder (HCC) 12/01/2018 Congenital third degree heart block 07/31/2005 Constipation, chronic 02/19/2016 Failure of implantable cardioverter-defibri llator lead 09/01/2012 Last Assessment AND Plan: Underwent successful RA lead extraction and replacement yesterday, 09/01 CXR demonstrates no pneumothroax Device interrogation pending Headache(784.0) MIGRAINES WITH AURA Panic disorder without agoraphobia 11/19/2011 Follows at [facility] Bipolar disorder possible, to be r/o (09/25/11) Primary cardiomyopathy (HCC) non ischemic PTSD (post-traumatic stress disorder) 11/19/2011 Follows at [facility] Rectal bleeding 09/04/2022 Schizoaffective disorder Unspecified schizophrenia Schizophrenia PAST SURGICAL HISTORY PAST SURGICAL HISTORY Procedure Laterality Date ANES PERMANENT TRANSVENOUS PACEMAKER INSERTION 01/09/1992 Permanent Pacemaker DELIVERY ONLY TIMES THREE DANDC, DIAG AND/OR THERAPEUTIC 02/05/2022 HYSTEROSCOPY ENDOMETRIAL ABLATION 02/05/2022 Marcella ablation ICD GENERATOR CHANGE 07/19/2020 [facility] IMPLANTABLE CARDIOVERTER DEFIBRILLATOR 05/10/2009 defib/pacer- [facility], Dr Hardy LIG/TRNSXJ FLP TUBE ABDL/VAG APPR UNI/BI CURRENT MEDICATIONS Current Outpatient Medications Medication Sig LORazepam (ATIVAN) 0.5 mg Take 0.5 mg by mouth twice daily as needed. peg 3350-Electrolytes (GOLYTELY) 236-22.74-6.74 -5.86 gram suspension Take 4,000 mL by mouth one time only for 1 dose. Refer to printed prep instructions from your provider. No current facility-administere d medications for this visit. ALLERGIES: Adhesive Tape-Silicones, Antihistamine [Diphenhydramine], Latex, Lisinopril, Naproxen, and Paxil [Paroxetine] PERSONAL HISTORY: SOCIAL HISTORY Social History Tobacco Use Smoking status: Former Packs/day: 2.00 Years: 15.00 Pack years: 30.00 Types: Cigarettes Quit date: 12/08/2017 Years since quittin.7 Smokeless tobacco: Never Vaping Use Vaping Use: Former Start date: 12/08/2017 Quit date: 01/08/2018 Substance Use Topics Alcohol use: Yes Comment: rare Drug use: Not Currently Comment: quit pot 2016. Medical Marijuana 2020. FAMILY HISTORY: FAMILY HISTORY FAMILY HISTORY Problem Relation Age of Onset [...] ?C (98.2 ?F), height 175.3 cm (5' 9), weight 99.5 kg (219 lb 6.4 oz), last menstrual period 12/29/2021, SpO2 98 %. Body mass index is 32.4 kg/m?. HEENT: Normal cephalic, ataumatic, pupils are equally round, sclera are anicteric, mucous membranes are moist, oropharynx is clear. Neck has no masses, asymmetry or lymphadenopathy. Thyroid is unr (more content not included)... [facility] NURSING PROGon 08-09-2023 NURSING PROG HNO ID: [id number] Author: MAURICIO CHAPMAN, RN Service: Nursing Author Type: Registered Nurse Type: Nursing Progress Note Filed: 08/09/2023 09:19 Note Text: Nursing Progress Note Topic of Note: Incidental PATIENT NAME: Michell Wooten Patient Location: Room/bed info not found Room: Spoke with Dr. Hutchison regarding no pacemaker/AICD check for patient prior to procedure. Dr. Hutchison stated that he did not need to see a pacer/AICD check and it was not necessary to obtain one. This note was completed by: Mauricio Chapman. [facility] Upper GI endoscopyon 024 Upper GI endoscopy [facility] Gastrointestinal Endoscopy Patient Name: Michell Wooten Procedure Date: 08/09/2023 10:46 AM Date of : 1975 Admit Type: Outpatient Age: 47 Room: [facility] Gender: Female Note Status: Finalized Attending MD: Luz Elena Bella MD, [id number] Procedure: Upper GI endoscopy Indications: Esophageal reflux Providers: Luz Elena Bella MD Patient Profile: Refer to note in patient chart for documentation of history and physical. Referring Physician: Deirdre Ashley MD (Referring MD) Medicines: See the Anesthesia note for documentation of the administered medications Complications: No immediate complications. Requesting Provider: Procedure: Pre-Anesthesia Assessment: - Monitored anesthesia care under the supervision of a PARALEGALS was determined to be medically necessary for this procedure based on review of the patient's medical history, medications, and prior anesthesia history. After obtaining informed consent, the endoscope was passed under direct vision. Throughout the procedure, the patient's blood pressure, pulse, and oxygen saturations were monitored continuously. The Endoscope was introduced through the mouth, and advanced to the second part of duodenum. The upper GI endoscopy was accomplished without difficulty. The patient tolerated the procedure well. Moderate Sedation: MAC anesthesia was administered by the anesthesia team. Total Procedure Duration: 0 hours 4 minutes 57 seconds Findings: Diffuse mildly erythematous mucosa without active bleeding and with no stigmata of bleeding was found in the duodenal bulb. Biopsies were taken with a cold forceps for histology. Estimated blood loss was minimal. Radially striped mildly erythematous mucosa without bleeding was found in the gastric antrum. Biopsies were taken with a cold forceps for histology/H pylori. Estimated blood loss was minimal. The Z-line was irregular and was found 35 cm from the incisors. Biopsies were taken with a cold forceps for histology. Verification of patient identification for the specimen was done by the nurse. Estimated blood loss was minimal. A medium-sized hiatal hernia was present. Impression: - Erythematous duodenopathy. Biopsied. - Erythematous mucosa in the antrum. Biopsied. - Z-line irregular, 35 cm from the incisors. Biopsied. Recommendation: - Discharge patient to home (ambulatory). - Resume previous diet. - Return to referring physician at the next available appointment. Procedure Code(s): --- Professional --- 33364, Esophagogastroduoden oscopy, flexible, transoral; with biopsy, single or multiple Diagnosis Code(s): --- Professional --- K21.9, Gastro-esophageal reflux disease without esophagitis K22.89, Other specified disease of esophagus K31.89, Other diseases of stomach and duodenum CPT copyright 2020 [employer]. All rights reserved. The codes documented in this report are preliminary and upon label coder review may be revised to meet current compliance requirements. Attending Participation: I personally performed the entire procedure. Scope In: 10:56:22 AM Scope Out: 11:01:19 AM MD Luz Elena Galvan MD 08/09/2023 11:05:03 AM This report has been signed electronically by Luz Elena Bella MD Number of Addenda: 0 Note Initiated On: 08/09/2023 10:46 AM Estimated Blood Loss: Estimated blood loss was minimal. Normal [facility] Absolute lymphocyte countOrd ered By: Cornelius Aguiar on 04-15-2023 Lymphocytes Auto (Unsp spec) [#/Vol] 1.60 10*3/uL 0.83-4.51 [facility] Basophil percentageOrdered B y: Cornelius Aguiar on 04-15-2023 Basophils/100 WBC (Bld) 0.4 % 0-1 [facility] Eosinophils/100 WBC (Bld) 0.1 % 0-5 [facility] Neutrophils (Bld) [#/Vol] 7.5 10*3/uL 2.0-7.7 [facility] Neutrophils/100 WBC (Bld) 77.7 % 47-70 [facility] WBC (Bld) [#/Vol] 9.6 10*3/uL 4.4-11.0 [facility] Basophil percentageOrdered B y: ED PROVIDER on 04-15-2023 Chloride [Moles/Vol] 108 mmol/L 98-107 [facility] Glucose [Mass/Vol] 103 mg/dL 74-106 [facility] Comment on above: Fasting Glucose resu lt from 100 to 125 mg/dL suggests IMPAIRED HOMEOSTASIS per A.D.A. criteria. Potassium [Moles/Vol] 3.7 mmol/L 3.5-5.1 [facility] Sodium [Moles/Vol] 139 mmol/L 136-145 [facility] Blood erythrocytes count (nu mber/volume)Ordered By: Cornelius Aguiar on 04-15-2023 RBC (Bld) [#/Vol] 5.12 10*6/uL 4.2-5.4 [facility] Blood hemoglobin measurement (mass/volume)Ordered By: Cornelius Aguiar on 04-15-2023 Hemoglobin (Bld) [Mass/Vol] 14.2 g/dL 12.0-15.0 [facility] Blood lymphocytes/100 leukoc ytesOrdered By: Cornelius Aguiar on 04-15-2023 Lymphocytes/100 WBC (Bld) 16.6 % 19-41 [facility] Blood monocytes/100 leukocyt esOrdered By: Cornelius Aguiar on 04-15-2023 Monocytes/100 WBC (Bld) 4.9 % 0-10 [facility] Blood platelet mean volumeOr dered By: Cornelius Aguiar on 04-15-2023 Platelet mean volume (Bld) [Entitic vol] 12.6 fL 6.2-12.0 [facility] COVID-19 virus antigen assay Ordered By: Cornelius Aguiar on 04-15-2023 SARS-CoV-2 (COVID-19) Ag IA.rapid Ql (Resp) [facility] SARS-CoV-2 (COVID-19) Ag IA.rapid Ql (Resp) [facility] Determination of erythrocyte mean corpuscular volume (MCV)Ordered By: Cornelius Aguiar on 04-15-2023 MCV (RBC) [Entitic vol] 85.5 fL 81-99 [facility] Hematocrit Auto (Bld) [Volum e fraction]Ordered By: Cornelius Aguiar on 04-15-2023 Hematocrit (Bld) [Volume fraction] 43.8 % 37-47 [facility] Laboratory - Chemistry and C hemistry - challengeOrdered By: ED PROVIDER on 04-15-2023 CO2 [Moles/Vol] 25.0 mmol/L 21.0-32.0 [facility] Urea nitrogen/Creatinine [Mass ratio] 19.5 mg/mg 10-20 [facility] Laboratory - Hematology and Cell countsOrdered By: Cornelius Aguiar on 04-15-2023 Erythrocyte distribution width (RBC) [Entitic vol] 39.4 fL 35.1-43.9 [facility] Erythrocyte distribution width (RBC) [Ratio] 12.7 % 11.6-14.6 [facility] Immature granulocytes/100 WBC (Bld) 0.300 % 0.0-0.9 [facility] Comment on above: IG% - Immature Granu locytes (promyelocytes, myelocytes and metamyelocytes) > 1% indicates that a LEFT SHIFT is Present. MCH (RBC) [Entitic mass] 27.7 pg 27.0-32.0 [facility] Nucleated RBC/100 WBC (Bld) [Ratio] 0 % 0-5 [facility] MCHC Auto (RBC) [Mass/Vol]Or dered By: Cornelius Aguiar on 04-15-2023 MCHC (RBC) [Mass/Vol] 32.4 g/dL 32-36 [facility] No Panel InformationOrdered By: ED PROVIDER on 04-15-2023 Estimated Creatinine Clearance Calc 83.54 ml/min [facility] Estimated GFR (MDRD) Amer 89 mL/min >60 [facility] Comment on above: GFR Calc Estimated GFR (MDRD) Non-Af Amer 74 mL/min >60 [facility] Comment on above: Non- GFR Calc No Panel InformationOrdered By: Cornelius Aguiar on 04-15-2023 Troponin I High Sensitivity 14 pg/mL 3.0-54.0 [facility] Comment on above: Please Note: [place] t Units and Gender Specific Reference Ranges. For more information see Policy Stat Procedure [place] High Sensitivity Troponin (TNIH) and attachments. Platelets bldOrdered By: Jaydon Aguiar on 04-15-2023 Platelets (Bld) [#/Vol] 173 10*3/uL 150-450 [facility] Serum or plasma calcium linda urement (mass/volume)Ordered By: ED PROVIDER on 04-15-2023 Calcium [Mass/Vol] 8.2 mg/dL 8.5-10.1 [facility] Serum or plasma creatinine m easurement (mass/volume)Ordered By: ED PROVIDER on 04-15-2023 Creatinine [Mass/Vol] 0.87 mg/dL 0.55-1.02 [facility] Comment on above: The validity of the calculated GFR & GFRAA in patients over 70 years has not been determined. Clinical correlation is essential. Serum or plasma urea nitroge n measurement (mass/volume)Ordered By: ED PROVIDER on 04-15-2023 Urea nitrogen [Mass/Vol] 17 mg/dL 7-18 [facility] Thin prep Papanicolaou smear with manual screeningOrdered By: ED PROVIDER on 04-15-2023 Thin prep Papanicolaou smear with manual screening 6 5-15 [facility] CBC W Auto Differential pane l (Bld)on 09-02-2022 Basophils (Bld) [#/Vol] 0.03 10*3/uL <0.11 k/uL [facility] Basophils/100 WBC (Bld) 0.4 % [facility] Differential cell count method Nom (Bld) Auto [facility] Eosinophils (Bld) [#/Vol] 0.07 10*3/uL <0.46 k/uL [facility] Eosinophils/100 WBC (Bld) 0.9 % [facility] Erythrocyte distribution width (RBC) [Ratio] 12.8 % 11.5 - 15.0 % [facility] Hematocrit (Bld) [Volume fraction] 43.8 % 36.0 - 46.0 % [facility] Hemoglobin (Bld) [Mass/Vol] 14.1 g/dL 11.5 - 15.5 g/dL [facility] Immature granulocytes (Bld) [#/Vol] <0.10 k/uL [facility] Immature granulocytes/100 WBC (Bld) 0.2 % [facility] Lymphocytes (Bld) [#/Vol] 2.08 10*3/uL 1.00 - 4.00 k/uL [facility] Lymphocytes/100 WBC (Bld) 25.9 % [facility] MCH (RBC) [Entitic mass] 28.8 pg 26. 0 - 34.0 pg [facility] MCHC (RBC) [Mass/Vol] 32.2 g/dL 30.5 - 36.0 g/dL [facility] MCV (RBC) [Entitic vol] 89.6 fL 80.0 - 100.0 fL [facility] Monocytes (Bld) [#/Vol] 0.62 10*3/uL <0.87 k/uL [facility] Monocytes/100 WBC (Bld) 7.7 % [facility] Neutrophils (Bld) [#/Vol] 5.22 10*3/uL 1.45 - 7.50 k/uL [facility] Neutrophils/100 WBC (Bld) 64.9 % [facility] Nucleated RBC (Bld) [#/Vol] <0.01 k/uL [facility] Nucleated RBC/100 WBC (Bld) [Ratio] 0.0 /100 WBC [facility] Platelet mean volume (Bld) [Entitic vol] 12.8 fL High 9.0 - 12.7 fL [facility] Platelets (Bld) [#/Vol] 168 10*3/uL 150 - 400 k/uL [facility] RBC (Bld) [#/Vol] 4.89 10*6/uL 3.90 - 5.2 0 m/uL [facility] WBC (Bld) [#/Vol] 8.04 10*3/uL 3.70 - 11. 00 k/uL [facility] CBC W Auto Differential pane l (Bld)on 12-29-2021 Abs Immature Gran 0.11 k/uL High <0.10 k/uL [facility] Basophils (Bld) [#/Vol] 0.04 10*3/uL <0.11 k/uL [facility] Basophils/100 WBC (Bld) 0.5 % [facility] Differential cell count method Nom (Bld) Auto [facility] Eosinophils (Bld) [#/Vol] 0.09 10*3/uL <0.46 k/uL [facility] Eosinophils/100 WBC (Bld) 1.1 % [facility] Erythrocyte distribution width (RBC) [Ratio] 20.4 % High 11.5 - 15.0 % [facility] Hematocrit (Bld) [Volume fraction] 39.4 % 36.0 - 46.0 % [facility] Hemoglobin (Bld) [Mass/Vol] 12.4 g/dL 11.5 - 15.5 g/dL [facility] Immature Gran % 1.3 % [facility] Lymphocytes (Bld) [#/Vol] 1.86 10*3/uL 1.00 - 4.00 k/uL [facility] Lymphocytes/100 WBC (Bld) 22.7 % [facility] MCH (RBC) [Entitic mass] 25.4 pg Low 26. 0 - 34.0 pg [facility] MCHC (RBC) [Mass/Vol] 31.5 g/dL 30.5 - 36.0 g/dL [facility] MCV (RBC) [Entitic vol] 80.6 fL 80.0 - 100.0 fL [facility] Monocytes (Bld) [#/Vol] 0.50 10*3/uL <0.87 k/uL [facility] Monocytes/100 WBC (Bld) 6.1 % [facility] Neutrophils (Bld) [#/Vol] 5.61 10*3/uL 1.45 - 7.50 k/uL [facility] Neutrophils/100 WBC (Bld) 68.3 % [facility] Nucleated RBC (Bld) [#/Vol] <0.01 k/uL [facility] Nucleated RBC/100 WBC (Bld) [Ratio] 0.0 /100 WBC [facility] Platelet mean volume (Bld) [Entitic vol] 12.1 fL 9.0 - 12.7 fL [facility] Platelets (Bld) [#/Vol] 242 10*3/uL 150 - 400 k/uL [facility] RBC (Bld) [#/Vol] 4.89 10*6/uL 3.90 - 5.2 0 m/uL [facility] WBC (Bld) [#/Vol] 8.21 10*3/uL 3.70 - 11. 00 k/uL [facility] Absolute lymphocyte counton 11-17-2021 Lymphocytes Auto (Unsp spec) [#/Vol] 1.33 10*3/uL 0.83-4.51 [facility] Work Phone: Basophil percentageon 2021 Basophils/100 WBC (Bld) 0.5 % 0-1 [facility] Work Phone: Chloride [Moles/Vol] 106 mmol/L 98-107 [facility] Work Phone: Eosinophils/100 WBC (Bld) 0.8 % 0-5 [facility] Work Phone: Glucose [Mass/Vol] 169 mg/dL 74-106 [facility] Work Phone: Comment on above: Fasting Glucose resu lt greater than or equal to 126 mg/dL suggests DIABETES MELLITUS per A.D.A. criteria. Neutrophils (Bld) [#/Vol] 4.6 10*3/uL 2.0-7.7 [facility] Work Phone: Neutrophils/100 WBC (Bld) 71.8 % 47-70 [facility] Work Phone: Potassium [Moles/Vol] 3.8 mmol/L 3.5-5.1 [facility] Work Phone: [phone] Sodium [Moles/Vol] 140 mmol/L 136-145 [facility] Work Phone: [phone] WBC (Bld) [#/Vol] 6.3 10*3/uL 4.4-11.0 [facility] Work Phone: Blood erythrocytes count (nu mber/volume)on 11-17-2021 RBC (Bld) [#/Vol] 4.27 10*6/uL 4.2-5.4 [facility] Work Phone: Blood hemoglobin measurement (mass/volume)on 11-17-2021 Hemoglobin (Bld) [Mass/Vol] 10.3 g/dL 12.0-15.0 [facility] Work Phone: Blood lymphocytes/100 leukoc yteson 11-17-2021 Lymphocytes/100 WBC (Bld) 21.0 % 19-41 [facility] Work Phone: Blood monocytes/100 leukocyt eson 11-17-2021 Monocytes/100 WBC (Bld) 5.4 % 0-10 [facility] Work Phone: Blood platelet mean volumeon 11-17-2021 Platelet mean volume (Bld) [Entitic vol] 12.2 fL 6.2-12.0 [facility] Work Phone: [phone] Determination of erythrocyte mean corpuscular volume (MCV)on 11-17-2021 MCV (RBC) [Entitic vol] 79.4 fL 81-99 [facility] Work Phone: Hematocrit Auto (Bld) [Volum e fraction]on 11-17-2021 Hematocrit (Bld) [Volume fraction] 33.9 % 37-47 [facility] Work Phone: Laboratory - Chemistry and C hemistry - challengeon 11-17-2021 CO2 [Moles/Vol] 25.0 mmol/L 21.0-32.0 [facility] Work Phone: [phone] Natriuretic peptide B (Bld) [Mass/Vol] 30.8 pg/mL 0-100 [facility] Work Phone: [phone] Urea nitrogen/Creatinine [Mass ratio] 16.0 mg/mg 10-20 [facility] Work Phone: [phone] Laboratory - Hematology and Cell countson 11-17-2021 Erythrocyte distribution width (RBC) [Entitic vol] 45.0 fL 35.1-43.9 [facility] Work Phone: [phone] Erythrocyte distribution width (RBC) [Ratio] 15.6 % 11.6-14.6 [facility] Work Phone: [phone] Immature granulocytes/100 WBC (Bld) 0.500 % 0.0-0.9 [facility] Work Phone: [phone] Comment on above: IG% - Immature Granu locytes (promyelocytes, myelocytes and metamyelocytes) > 1% indicates that a LEFT SHIFT is Present. MCH (RBC) [Entitic mass] 24.1 pg 27.0-32.0 [facility] Work Phone: [phone] Nucleated RBC/100 WBC (Bld) [Ratio] 0 % 0-5 [facility] Work Phone: [phone] MCHC Auto (RBC) [Mass/Vol]on 11-17-2021 MCHC (RBC) [Mass/Vol] 30.4 g/dL 32-36 [facility] Work Phone: [phone] Panel Informationon 11-17 Estimated Creatinine Clearance Calc 73.46 ml/min [facility] Work Phone: [phone] Estimated GFR (MDRD) Amer 77 mL/min >60 [facility] Work Phone: [phone] Comment on above: GFR Calc Estimated GFR (MDRD) Non-Af Amer 63 mL/min >60 [facility] Work Phone: [phone] Comment on above: Non- GFR Calc Troponin I High Sensitivity 7 pg/mL 3.0-54.0 [facility] Work Phone: [phone] Comment on above: Please Note: [place] t Units and Gender Specific Reference Ranges. For more information see Policy Stat Procedure [place] High Sensitivity Troponin (TNIH) and attachments. Platelets bldon 11-17-2021 Platelets (Bld) [#/Vol] 216 10*3/uL 150-450 [facility] Work Phone: Serum or plasma calcium linda urement (mass/volume)on 11-17-2021 Calcium [Mass/Vol] 8.6 mg/dL 8.5-10.1 [facility] Work Phone: Serum or plasma creatinine m easurement (mass/volume)on 11-17-2021 Creatinine [Mass/Vol] 1.00 mg/dL 0.55-1.02 [facility] Work Phone: Comment on above: The validity of the calculated GFR & GFRAA in patients over 70 years has not been determined. Clinical correlation is essential. Serum or plasma urea nitroge n measurement (mass/volume)on 11-17-2021 Urea nitrogen [Mass/Vol] 16 mg/dL 7-18 [facility] Work Phone: Thin prep Papanicolaou smear with manual screeningon 11-17-2021 Thin prep Papanicolaou smear with manual screening 9 5-15 [facility] Work Phone: CBC W Auto Differential pane l (Bld)on 11-05-2021 Abs Immature Gran 0.03 k/uL <0.10 k/uL [facility] Basophils (Bld) [#/Vol] 0.06 10*3/uL <0.11 k/uL [facility] Basophils/100 WBC (Bld) 0.7 % [facility] Differential cell count method Nom (Bld) Auto [facility] Eosinophils (Bld) [#/Vol] 0.03 10*3/uL <0.46 k/uL [facility] Eosinophils/100 WBC (Bld) 0.4 % [facility] Erythrocyte distribution width (RBC) [Ratio] 17.0 % High 11.5 - 15.0 % [facility] Hematocrit (Bld) [Volume fraction] 30.7 % Low 36.0 - 46.0 % [facility] Hemoglobin (Bld) [Mass/Vol] 9.6 g/dL Low 11.5 - 15.5 g/dL [facility] Immature Gran % 0.4 % [facility] Lymphocytes (Bld) [#/Vol] 1.72 10*3/uL 1.00 - 4.00 k/uL [facility] Lymphocytes/100 WBC (Bld) 21.4 % [facility] MCH (RBC) [Entitic mass] 24.1 pg Low 26. 0 - 34.0 pg [facility] MCHC (RBC) [Mass/Vol] 31.3 g/dL 30.5 - 36.0 g/dL [facility] MCV (RBC) [Entitic vol] 76.9 fL Low 80.0 - 100.0 fL [facility] Monocytes (Bld) [#/Vol] 0.46 10*3/uL <0.87 k/uL [facility] Monocytes/100 WBC (Bld) 5.7 % [facility] Neutrophils (Bld) [#/Vol] 5.74 10*3/uL 1.45 - 7.50 k/uL [facility] Neutrophils/100 WBC (Bld) 71.4 % [facility] Nucleated RBC (Bld) [#/Vol] 10*3/uL <0.01 k/uL [facility] Nucleated RBC/100 WBC (Bld) [Ratio] 0.0 /100 WBC [facility] Platelet mean volume (Bld) [Entitic vol] 12.1 fL 9.0 - 12.7 fL [facility] Platelets (Bld) [#/Vol] 241 10*3/uL 150 - 400 k/uL [facility] RBC (Bld) [#/Vol] 3.99 10*6/uL 3.90 - 5.2 0 m/uL [facility] WBC (Bld) [#/Vol] 8.04 10*3/uL 3.70 - 11. 00 k/uL [facility] Absolute lymphocyte counton 10-24-2021 Lymphocytes Auto (Unsp spec) [#/Vol] 1.57 10*3/uL 0.83-4.51 [facility] Work Phone: Basophil percentageon 2021 Basophil percentage 0 SEEN /hpf 0-5 [facility] Work Phone: Basophils/100 WBC (Bld) 0.3 % 0-1 [facility] Work Phone: Chloride [Moles/Vol] 108 mmol/L 98-107 [facility] Work Phone: Eosinophils/100 WBC (Bld) 0.4 % 0-5 [facility] Work Phone: Glucose [Mass/Vol] 114 mg/dL 74-106 [facility] Work Phone: Comment on above: Fasting Glucose resu lt from 100 to 125 mg/dL suggests IMPAIRED HOMEOSTASIS per A.D.A. criteria. Neutrophils (Bld) [#/Vol] 5.3 10*3/uL 2.0-7.7 [facility] Work Phone: Neutrophils/100 WBC (Bld) 72.4 % 47-70 [facility] Work Phone: Potassium [Moles/Vol] 3.6 mmol/L 3.5-5.1 [facility] Work Phone: Sodium [Moles/Vol] 138 mmol/L 136-145 [facility] Work Phone: WBC (Bld) [#/Vol] 7.3 10*3/uL 4.4-11.0 [facility] Work Phone: Bilirubin Test strip Ql (U)o n 10-24-2021 Bilirubin Ql (U) Negative Negative [facility] Work Phone: Blood erythrocytes count (nu mber/volume)on 10-24-2021 RBC (Bld) [#/Vol] 4.38 10*6/uL 4.2-5.4 [facility] Work Phone: Blood hemoglobin measurement (mass/volume)on 10-24-2021 Hemoglobin (Bld) [Mass/Vol] 10.5 g/dL 12.0-15.0 [facility] Work Phone: Blood lymphocytes/100 leukoc yteson 10-24-2021 Lymphocytes/100 WBC (Bld) 21.5 % 19-41 [facility] Work Phone: [phone] Blood monocytes/100 leukocyt eson 10-24-2021 Monocytes/100 WBC (Bld) 5.3 % 0-10 [facility] Work Phone: [phone] Blood platelet mean volumeon 10-24-2021 Platelet mean volume (Bld) [Entitic vol] 12.3 fL 6.2-12.0 [facility] Work Phone: Determination of erythrocyte mean corpuscular volume (MCV)on 10-24-2021 MCV (RBC) [Entitic vol] 78.1 fL 81-99 [facility] Work Phone: Glucose Glucometer (dC) [M ass/Vol]on 10-24-2021 Glucose [Mass/Vol] 112 mg/dL 74-106 [facility] Work Phone: Comment on above: MANAGEMENT OF PATIEN T CARE PER NURSING PROTOCOL Hematocrit Auto (Bld) [Volum e fraction]on 10-24-2021 Hematocrit (Bld) [Volume fraction] 34.2 % 37-47 [facility] Work Phone: Ketones Test strip Ql (U)on 10-24-2021 Ketones Ql (U) Negative Negative [facility] Work Phone: Laboratory - Chemistry and C hemistry - challengeon 10-24-2021 HCG ( test) Ql (U) Negative [facility] Work Phone: Comment on above: Very dilute urine sp ecimens, as indicated by a low specificgravity, may not contain promotional representative levels of hCG. If is still suspected, a first morning urinespecimen should be collected 48 hours later and tested. CO2 [Moles/Vol] 24.0 mmol/L 21.0-32.0 [facility] Work Phone: Urea nitrogen/Creatinine [Mass ratio] 13.5 mg/mg 10-20 [facility] Work Phone: [phone] Laboratory - Hematology and Cell countson 10-24-2021 Erythrocyte distribution width (RBC) [Entitic vol] 48.3 fL 35.1-43.9 [facility] Work Phone: [phone] Erythrocyte distribution width (RBC) [Ratio] 17.1 % 11.6-14.6 [facility] Work Phone: [phone] Immature granulocytes/100 WBC (Bld) 0.100 % 0.0-0.9 [facility] Work Phone: Comment on above: IG% - Immature Granu locytes (promyelocytes, myelocytes and metamyelocytes) > 1% indicates that a LEFT SHIFT is Present. MCH (RBC) [Entitic mass] 24.0 pg 27.0-32.0 [facility] Work Phone: Nucleated RBC/100 WBC (Bld) [Ratio] 0 % 0-5 [facility] Work Phone: [phone] MCHC Auto (RBC) [Mass/Vol]on 10-24-2021 MCHC (RBC) [Mass/Vol] 30.7 g/dL 32-36 [facility] Work Phone: Mucus LM Ql (Urine sed)on Mucus Ql (Urine sed) 0 SEEN /hpf [facility] Work Phone: [phone] Nitrite Test strip Ql (U)on 10-24-2021 Nitrite Ql (U) Negative Negative [facility] Work Phone: No Panel Informationon 10-24 Estimated Creatinine Clearance Calc 89.59 ml/min [facility] Work Phone: [phone] Estimated GFR (MDRD) Amer 97 mL/min >60 [facility] Work Phone: [phone] Comment on above: GFR Calc Estimated GFR (MDRD) Non-Af Amer 80 mL/min >60 [facility] Work Phone: [phone] Comment on above: Non- GFR Calc Platelets bldon 10-24-2021 Platelets (Bld) [#/Vol] 190 10*3/uL 150-450 [facility] Work Phone: Protein Test strip Ql (U)on 10-24-2021 Protein Ql (U) Negative Negative [facility] Work Phone: Serum or plasma calcium linda urement (mass/volume)on 10-24-2021 Calcium [Mass/Vol] 8.2 mg/dL 8.5-10.1 [facility] Work Phone: Serum or plasma creatinine m easurement (mass/volume)on 10-24-2021 Creatinine [Mass/Vol] 0.82 mg/dL 0.55-1.02 [facility] Work Phone: Comment on above: The validity of the calculated GFR & GFRAA in patients over 70 years has not been determined. Clinical correlation is essential. Serum or plasma urea nitroge n measurement (mass/volume)on 10-24-2021 Urea nitrogen [Mass/Vol] 11 mg/dL 7-18 [facility] Work Phone: Squamous epithelial cells de tection in urine sediment by light microscopyon 10-24-2021 Epithelial cells.squamous LM Ql (Urine sed) 0 SEEN /hpf 5-10 [facility] Work Phone: Thin prep Papanicolaou smear with manual screeningon 10-24-2021 Thin prep Papanicolaou smear with manual screening 6 5-15 [facility] Work Phone: Urine blood detectionon 10-08 RBC Ql (U) 250 /ul Negative [facility] Work Phone: RBC Ql (U) 0 SEEN /hpf 0-5 [facility] Work Phone: Urine clarityon 10-24-2021 Clarity (U) Clear Clear [facility] Work Phone: Urine color determinationon 10-24-2021 Color (U) Straw Yellow [facility] Work Phone: Urine glucose detectionon Glucose Ql (U) Normal mg/dl Normal [facility] Work Phone: Urine leukocyte esterase det ection by dipstickon 10-24-2021 Leukocyte esterase Test strip Ql (U) Negative Negative [facility] Work Phone: Urine pHon 10-24-2021 pH (U) 6.0 [pH] 5.0 - 8.0 [facility] Work Phone: Urine sediment bacteria coun t by microscopy (number/high power field)on 10-24-2021 Bacteria LM.HPF (Urine sed) [#/Area] 0 /[HPF] None Seen [facility] Work Phone: Urine specific gravity measu rementon 10-24-2021 Specific gravity (U) [Rel density] 1.010 1.002-1.030 [facility] Work Phone: Urobilinogen Auto test strip Ql (U)on 10-24-2021 Urobilinogen Ql (U) Normal mg/dl Normal [facility] Work Phone: FECAL OCCULT BLOOD TESTon Lower GI hemoglobin IA Ql (Stl) Negative Negative [facility] .Auto Diffon 07-19-2020 Ammonia (P) [Mass/Vol] 0.50 10 3/mcL Normal 0.09-1.40 [facility] ([place]) Comment on above: Performed By: #### C BC, ADIFF, ANEU, ABOM, BMP, GFR, ANTIS #### [address] [address] Basophils (Bld) [#/Vol] 0.00 10 3/mcL Normal 0.00-0.27 [facility] ([place]) Comment on above: Performed By: #### C BC, ADIFF, ANEU, ABOM, BMP, GFR, ANTIS #### [address] [address] Basophils/100 WBC (Bld) 0.6 % Normal 0.0-2.5 [facility] ([place]) Comment on above: Performed By: #### C BC, ADIFF, ANEU, ABOM, BMP, GFR, ANTIS #### [address] [address] Eosinophils (Bld) [#/Vol] 0.00 10 3/mcL Normal 0.00-0.65 [facility] ([place] Comment on above: Performed By: #### C BC, ADIFF, ANEU, ABOM, BMP, GFR, ANTIS #### [address] [address] Eosinophils/100 WBC (Bld) 0.3 % Normal 0.0-6.0 [facility] ([place] Comment on above: Performed By: #### C BC, ADIFF, ANEU, ABOM, BMP, GFR, ANTIS #### [address] [address] Lymphocytes (Bld) [#/Vol] 1.70 10 3/mcL Normal 0.90-4.32 [facility] ([place]) Comment on above: Performed By: #### C BC, ADIFF, ANEU, ABOM, BMP, GFR, ANTIS #### [address] [address] Lymphocytes/100 WBC (Bld) 22.5 % Normal 20.0-40.0 [facility] ([place] Comment on above: Performed By: #### C BC, ADIFF, ANEU, ABOM, BMP, GFR, ANTIS #### [address] [address] Monocytes/100 WBC (Bld) 6.4 % Normal 2.0-13.0 [facility] ([place]) Comment on above: Performed By: #### C BC, ADIFF, ANEU, ABOM, BMP, GFR, ANTIS #### [address] [address] Neutrophils/100 WBC (Bld) 70.2 % Normal 50.0-75.0 [facility] ([place] Comment on above: Performed By: #### C BC, ADIFF, ANEU, ABOM, BMP, GFR, ANTIS #### [address] [address] .GFRon 07-19-2020 GFR Non- >60 Normal [facility] ([place]) Comment on above: Result Comment: GFR Population mean for , Non- Americans Ages 20-29 = 116 mL/min/1.73 sq.m. Ages 30-39 = 107 mL/min/1.73 sq.m. Ages 40-49 = 99 mL/min/1.73 sq.m. Ages 50-59 = 93 mL/min/1.73 sq.m. Ages 60-69 = 85 mL/min/1.73 sq.m. Ages 70+ = 75 mL/min/1.73 sq.m. Chronic Kidney Disease: Less than 60 mL/min/1.73 square meters End Stage Renal Disease: Less than 15 mL/min/1.73 square meters Performed By: #### C BC, ADIFF, ANEU, ABOM, BMP, GFR, ANTIS #### [address] [address] GFR >60 Normal [facility] ([place]) Comment on above: Result Comment: GFR Population mean for , Non- Americans Ages 20-29 = 116 mL/min/1.73 sq.m. Ages 30-39 = 107 mL/min/1.73 sq.m. Ages 40-49 = 99 mL/min/1.73 sq.m. Ages 50-59 = 93 mL/min/1.73 sq.m. Ages 60-69 = 85 mL/min/1.73 sq.m. Ages 70+ = 75 mL/min/1.73 sq.m. Chronic Kidney Disease: Less than 60 mL/min/1.73 square meters End Stage Renal Disease: Less than 15 mL/min/1.73 square meters Performed By: #### C BC, ADIFF, ANEU, ABOM, BMP, GFR, ANTIS #### [address] [address] .NEUABSon 07-19-2020 Neutrophils (Bld) [#/Vol] 5.40 10 3/mcL Normal 2.25-8.10 [facility] ([place] Comment on above: Performed By: #### C BC, ADIFF, ANEU, ABOM, BMP, GFR, ANTIS #### [address] [address] BMPon 07-19-2020 Calcium [Mass/Vol] 9.2 mg/dL Normal 8.7-10.4 [facility] [place] Comment on above: Result Comment: No te - New Reference Range in effect 19 Performed By: #### C BC, ADIFF, ANEU, ABOM, BMP, GFR, ANTIS #### [address] [address] Chloride [Moles/Vol] 109 mmol/L Normal 98-110 [facility] ([place] Comment on above: Performed By: #### C BC, ADIFF, ANEU, ABOM, BMP, GFR, ANTIS #### [address] [address] CO2 [Moles/Vol] 28 mmol/L Normal 22-32 [facility] ([place] Comment on above: Performed By: #### C BC, ADIFF, ANEU, ABOM, BMP, GFR, ANTIS #### [address] [address] Creatinine [Mass/Vol] 0.86 mg/dL Normal 0.50-1.20 [facility] ([place] Comment on above: Performed By: #### C BC, ADIFF, ANEU, ABOM, BMP, GFR, ANTIS #### [place] [id number] Electrolyte Balance 3.0 mEq/L Low 4.0-15.0 [facility] ([place]) Comment on above: Performed By: #### C BC, ADIFF, ANEU, ABOM, BMP, GFR, ANTIS #### [address] [address] Glucose [Mass/Vol] 98 mg/dL Normal 70-110 [facility] [place] Comment on above: Performed By: #### C BC, ADIFF, ANEU, ABOM, BMP, GFR, ANTIS #### [address] [address] Potassium [Moles/Vol] 4.3 mmol/L Normal 3.5-5.0 [facility] ([place] Comment on above: Performed By: #### C BC, ADIFF, ANEU, ABOM, BMP, GFR, ANTIS #### [address] [address] Sodium [Moles/Vol] 140 mmol/L Normal 136-145 [facility] [place] Comment on above: Performed By: #### C BC, ADIFF, ANEU, ABOM, BMP, GFR, ANTIS #### [address] [address] Urea nitrogen [Mass/Vol] 15.0 mg/dL Normal 8.0-22.0 [facility] ([place] Comment on above: Performed By: #### C BC, ADIFF, ANEU, ABOM, BMP, GFR, ANTIS #### [address] [address] Urea nitrogen/Creatinine [Mass ratio] 17.4 ratio Normal 10.0-22.0 [facility] ([place] Comment on above: Performed By: #### C BC, ADIFF, ANEU, ABOM, BMP, GFR, ANTIS #### [address] [address] CBCon 07-19-2020 Erythrocyte distribution width (RBC) [Ratio] 14.6 % Normal 11.5-15.5 [facility] ([place] Comment on above: Performed By: #### C BC, ADIFF, ANEU, ABOM, BMP, GFR, ANTIS #### [place] [id number] Hematocrit (Bld) [Volume fraction] 36.9 % Normal 34.0-46.0 [facility] ([place] Comment on above: Performed By: #### C BC, ADIFF, ANEU, ABOM, BMP, GFR, ANTIS #### [address] [address] Hemoglobin (Bld) [Mass/Vol] 12.3 G/dL Normal 12.0-16.0 [facility] ([place] Comment on above: Performed By: #### C BC, ADIFF, ANEU, ABOM, BMP, GFR, ANTIS #### [address] [address] MCH (RBC) [Entitic mass] 27.7 pg Normal 27.0-33.0 [facility] ([place] Comment on above: Performed By: #### C BC, ADIFF, ANEU, ABOM, BMP, GFR, ANTIS #### [address] [address] MCHC (RBC) [Mass/Vol] 33.3 G/dL Normal 32.0-36.0 [facility] ([place] Comment on above: Performed By: #### C BC, ADIFF, ANEU, ABOM, BMP, GFR, ANTIS #### [address] [address] MCV (RBC) [Entitic vol] 83.1 fL Normal 80.0-99.0 A [facility] ([place]) Comment on above: Performed By: #### C BC, ADIFF, ANEU, ABOM, BMP, GFR, ANTIS #### [address] [address] Platelet mean volume (Bld) [Entitic vol] 10.6 fL High 6.6-10.5 [facility] ([place] Comment on above: Performed By: #### C BC, ADIFF, ANEU, ABOM, BMP, GFR, ANTIS #### [address] [address] Platelets (Bld) [#/Vol] 157 10 3/mcL Normal 150-450 [facility] ([place] Comment on above: Performed By: #### C BC, ADIFF, ANEU, ABOM, BMP, GFR, ANTIS #### [address] [address] RBC (Bld) [#/Vol] 4.43 10 6/mcL Normal 4.10-5.30 [facility] ([place] Comment on above: Performed By: #### C BC, ADIFF, ANEU, ABOM, BMP, GFR, ANTIS #### [address] [address] WBC (Bld) [#/Vol] 7.70 10 3/mcL Normal 4.50-10.80 [facility] ([place] Comment on above: Performed By: #### C BC, ADIFF, ANEU, ABOM, BMP, GFR, ANTIS #### [address] [address] MABOon 07-19-2020 ABO/Rh Interp Positive [facility] ([place] Comment on above: Performed By: #### C BC, ADIFF, ANEU, ABOM, BMP, GFR, ANTIS #### [facility] [address] [place] [address] TABSon 07-19-2020 Antibody Screen Tango Negative Normal [facility] ([place] Comment on above: Performed By: #### C BC, ADIFF, ANEU, ABOM, BMP, GFR, ANTIS #### [address] [address] Vital Signs Date Time Vital Sign Value Performing Clinician Facility 01-14-2025 12:23-0400 Body temperature 97.3 [degF] Gordon Armstrong MD Work Phone: [phone] [place] [address] 01-14-2025 12:23-0400 Diastolic blood pressure 70 mm[Hg] Gordon Armstrong MD Work Phone: [facility] 01-14-2025 12:23-0400 Heart rate 95 /min Gordon Armstrong MD Work Phone: [facility] 01-14-2025 12:23-0400 Respiratory rate 18 /min Gordon Armstrong MD Work Phone: [facility] 01-14-2025 12:23-0400 SaO2% (BldA) [Mass fraction] 93 % Gordon Armstrong MD Work Phone: [facility] 01-14-2025 12:23-0400 Systolic blood pressure 101 mm[Hg] Gordon Armstrong MD Work Phone: [facility] 01-14-2025 05:07-0400 Body mass index (BMI) [Ratio] 33.08 kg/m2 Gordon Armstrong MD Work Phone: [facility] 01-14-2025 05:07-0400 Body weight 101.61 kg Gordon rAmstrong MD Work Phone: [facility] 01-09-2025 16:30-0400 Body temperature 37.0 Gordon Armstrong MD Work Phone: [facility] 01-09-2025 16:30-0400 SaO2% (BldA) [Mass fraction] 100 % Gordon Armstrong MD Work Phone: [facility] 01-09-2025 16:23-0400 Body temperature 37.0 degrees Celsius [facility] Comment on above: Performed By: #### [id number] #### SANDRO Jain ([id number]) [facility] ([facility]) [address] [place] [address] 01-09-2025 16:23-0400 SaO2% (BldA) [Mass fraction] 100 % [facility] Comment on above: Performed By: #### [id number] #### SANDRO Jain ([id number]) [facility] ([facility]) [address] [place] [address] 01-09-2025 15:02-0400 Body temperature 37.0 Gordon Armstrong MD Work Phone: [facility] 01-09-2025 15:02-0400 SaO2% (BldA) [Mass fraction] 100 % Gordon Armstrong MD Work Phone: [facility] 01-09-2025 14:56-0400 Body temperature 37.0 degrees Celsius [facility] Comment on above: Performed By: #### [id number] #### SANDRO Jain ([id number]) [facility] ([facility]) [address] [place] [address] 01-09-2025 14:56-0400 SaO2% (BldA) [Mass fraction] 100 % [facility] Comment on above: Performed By: #### [id number] #### SANDRO Jain ([id number]) [facility] ([facility]) [address] [place] [address] 01-09-2025 12:40-0400 Body temperature 37.0 Gordon Armstrong MD Work Phone: [facility] 01-09-2025 12:40-0400 SaO2% (BldA) [Mass fraction] 100 % Gordon Armstrong MD Work Phone: [facility] 01-09-2025 12:36-0400 Body temperature 37.0 degrees Celsius [facility] Comment on above: Performed By: #### 1987-09 #### SANDRO Jain ([id number]) [facility] ([facility]) [address] [place] [address] 01-09-2025 12:36-0400 SaO2% (BldA) [Mass fraction] 100 % [facility] Comment on above: Performed By: #### 1987-09 #### SANDRO Jain ([id number]) [facility] ([facility]) [address] [place] [address] 01-09-2025 11:19-0400 Body temperature 37.0 Gordon Armstrong MD Work Phone: [facility] 01-09-2025 11:19-0400 SaO2% (BldA) [Mass fraction] 98 % Gordon Armstrong MD Work Phone: [facility] 01-09-2025 11:18-0400 Body temperature 37.0 degrees Celsius [facility] Comment on above: Result Comment: NOTE: Patient Results ar e Not Corrected for Temperature Performed By: #### 1 988-5 #### SANDRO Jain ([id number]) [facility] ([facility]) [address] [place] [address] 01-09-2025 11:18-0400 SaO2% (BldA) [Mass fraction] 98 % [facility] Comment on above: Performed By: #### 1987-09 #### SANDRO Jain ([id number]) [facility] ([facility]) [address] [place] [address] 01-09-2025 10:53-0400 Body temperature 37.0 Gordon Armstrong MD Work Phone: [facility] 01-09-2025 10:53-0400 SaO2% (BldA) [Mass fraction] 99 % Gordon Armstrong MD Work Phone: [facility] 01-09-2025 10:51-0400 Body temperature 37.0 degrees Celsius [facility] Comment on above: Result Comment: NOTE: Patient Results ar e Not Corrected for Temperature Performed By: #### 3 [id number] #### SANDRO Jain ([id number]) [facility] ([facility]) [address] [place] [address] 01-09-2025 10:51-0400 SaO2% (BldA) [Mass fraction] 99 % [facility] Comment on above: Performed By: #### [id number] #### SANDRO Jain ([id number]) [facility] ([facility]) [address] [place] [address] 01-09-2025 10:08-0400 Body temperature 37.0 Gordon Armstrong MD Work Phone: [facility] 01-09-2025 10:08-0400 SaO2% (BldA) [Mass fraction] 99 % Gordon Armstrong MD Work Phone: [facility] 01-09-2025 10:07-0400 Body temperature 37.0 degrees Celsius [facility] Comment on above: Result Comment: NOTE: Patient Results ar e Not Corrected for Temperature Performed By: #### 3 [id number] #### SANDRO Jain ([id number]) [facility] ([facility]) [address] [place] [address] 01-09-2025 10:07-0400 SaO2% (BldA) [Mass fraction] 99 % [facility] Comment on above: Performed By: #### [id number] #### SANDRO Jain ([id number]) [facility] ([facility]) [address] [place] [address] 01-09-2025 09:42-0400 Body temperature 37.0 Gordon Armstrong MD Work Phone: [facility] 01-09-2025 09:42-0400 SaO2% (BldA) [Mass fraction] 100 % Gordon Armstrong MD Work Phone: [facility] 01-09-2025 09:41-0400 Body temperature 37.0 degrees Celsius [facility] Comment on above: Result Comment: NOTE: Patient Results ar e Not Corrected for Temperature Performed By: #### 3 [id number] #### SANDRO Jain ([id number]) [facility] ([facility]) [address] [place] [address] 01-09-2025 09:41-0400 SaO2% (BldA) [Mass fraction] 100 % [facility] Comment on above: Performed By: #### [id number] #### SANDRO Jain ([id number]) [facility] ([facility]) [address] [place] [address] 01-09-2025 09:22-0400 Body temperature 37.0 Gordon Armstrong MD Work Phone: [facility] 01-09-2025 09:21-0400 Body temperature 37.0 degrees Celsius [facility] Comment on above: Result Comment: NOTE: Patient Results ar e Not Corrected for Temperature Performed By: #### 5 [id number] #### SANDRO Jain ([id number]) [facility] ([facility]) [address] [place] [address] 01-09-2025 09:16-0400 Body temperature 37.0 Gordon Armstrong MD Work Phone: [facility] 01-09-2025 09:16-0400 SaO2% (BldA) [Mass fraction] 100 % Gordon Armstrong MD Work Phone: [facility] 01-09-2025 09:15-0400 Body temperature 37.0 degrees Celsius [facility] Comment on above: Result Comment: NOTE: Patient Results ar e Not Corrected for Temperature Performed By: #### 5 [id number] #### SANDRO Jain ([id number]) [facility] ([facility]) [address] [place] [address] 01-09-2025 09:15-0400 SaO2% (BldA) [Mass fraction] 100 % [facility] Comment on above: Performed By: #### [id number] #### SANDRO Jain ([id number]) [facility] ([facility]) [address] [place] [address] 01-09-2025 08:57-0400 Body temperature 37.0 Gordon Armstrong MD Work Phone: [facility] 01-09-2025 08:57-0400 SaO2% (BldA) [Mass fraction] 99 % Gordon Armstrong MD Work Phone: [facility] 01-09-2025 08:55-0400 Body temperature 37.0 degrees Celsius [facility] Comment on above: Result Comment: NOTE: Patient Results ar e Not Corrected for Temperature Performed By: #### 5 [id number] #### SANDRO Jain ([id number]) [facility] ([facility]) [address] [place] [address] 01-09-2025 08:55-0400 SaO2% (BldA) [Mass fraction] 99 % [facility] Comment on above: Performed By: #### [id number] #### SANDRO Jain ([id number]) [facility] ([facility]) [address] [place] [address] 01-09-2025 07:46-0400 Body temperature 37.0 Gordon Armstrong MD Work Phone: [facility] 01-09-2025 07:46-0400 SaO2% (BldA) [Mass fraction] 100 % Gordon Armstrong MD Work Phone: [facility] 01-09-2025 07:44-0400 Body temperature 37.0 degrees Celsius [facility] Comment on above: Result Comment: NOTE: Patient Results ar e Not Corrected for Temperature Performed By: #### 9 [id number] #### SANDRO Jain ([id number]) [facility] ([facility]) [address] [place] [address] 01-09-2025 07:44-0400 SaO2% (BldA) [Mass fraction] 100 % GORDON ARMSTRONG [facility] Comment on above: Performed By: #### [id number] #### SANDRO Jain ([id number]) [facility] ([facility]) [address] [place] [address] 01-09-2025 06:23-0400 Body height 175.3 cm Gordon Armstrong MD Work Phone: [facility] 01-05-2025 08:00-0400 Body height 176.5 cm Gordon Armstrong MD Work Phone: [facility] 01-05-2025 08:00-0400 Body mass index (BMI) [Ratio] 32.52 kg/m2 Gordon Armstrong MD Work Phone: [facility] 01-05-2025 08:00-0400 Body weight 101.33 kg Gordon Armstrong MD Work Phone: [facility] 01-05-2025 08:00-0400 Diastolic blood pressure 80 mm[Hg] Gordon Armstrong MD Work Phone: [facility] 01-05-2025 08:00-0400 Heart rate 75 /min Gordon Armstrong MD Work Phone: [facility] 01-05-2025 08:00-0400 Respiratory rate 16 /min Gordon Armstrong MD Work Phone: [facility] 01-05-2025 08:00-0400 SaO2% (BldA) [Mass fraction] 97 % Gordon Armstrong MD Work Phone: [facility] 01-05-2025 08:00-0400 Systolic blood pressure 117 mm[Hg] Gordon Armstrong MD Work Phone: [facility] 07-18-2023 18:06-0400 Body temperature 97.6 [degF] [facility] 07-18-2023 18:06-0400 Diastolic blood pressure 81 mm[Hg] [facility] 07-18-2023 18:06-0400 Heart rate 74 /min [facility] 07-18-2023 18:06-0400 Respiratory rate 16 /min [facility] 07-18-2023 18:06-0400 SaO2% (BldA) [Mass fraction] 97 % [facility] 07-18-2023 18:06-0400 Systolic blood pressure 123 mm[Hg] [facility] 07-18-2023 15:27-0400 Body height 176.53 cm [facility] 07-18-2023 15:27-0400 Body mass index (BMI) [Ratio] 32 kg/m2 [facility] 07-18-2023 15:27-0400 Body weight 99.69 kg [facility] 04-15-2023 13:19-0500 Body height 175.26 cm [facility] 04-15-2023 13:19-0500 Body mass index (BMI) [Ratio] 32.6 kg/m2 [facility] 04-15-2023 13:19-0500 Body temperature 98.1 [degF] [facility] 04-15-2023 13:19-0500 Body weight 100.27 kg [facility] 04-15-2023 13:19-0500 Diastolic blood pressure 80 mm[Hg] [facility] 04-15-2023 13:19-0500 Heart rate 78 /min [facility] 04-15-2023 13:19-0500 Respiratory rate 16 /min [facility] 04-15-2023 13:19-0500 SaO2% (BldA) [Mass fraction] 100 % [facility] 04-15-2023 13:19-0500 Systolic blood pressure 137 mm[Hg] [facility] 10-30-2022 11:14-0400 Body weight 99.34 kg Mihir Glover MD Work Phone: [facility] 10-30-2022 11:14-0400 Diastolic blood pressure 78 mm[Hg] Mihir Glover MD Work Phone: [facility] 10-30-2022 11:14-0400 Heart rate 70 /min Mihir Glover MD Work Phone: [facility] 10-30-2022 11:14-0400 Respiratory rate 14 /min Mihir Glover MD Work Phone: [facility] 10-30-2022 11:14-0400 SaO2% (BldA) [Mass fraction] 98 % Mihir Glover MD Work Phone: [facility] 10-30-2022 11:14-0400 Systolic blood pressure 124 mm[Hg] Mihir Glover MD Work Phone: [facility] 09-02-2022 11:53-0400 Body weight 98.88 kg Gill Older [employer]INE [employer] Work Phone: [facility] 09-02-2022 11:53-0400 Diastolic blood pressure 86 mm[Hg] Gill Older P[employer] REMOVER[employer]GASOLINE TESTER Work Phone: [facility] 09-02-2022 11:53-0400 Heart rate 68 /min Gill Older P[employer]TY REMOVER.GASOLINE TE[employer] Work Phone: [facility] 09-02-2022 11:53-0400 Respiratory rate 18 /min Gill Older PUTTY REMOVER.GASOLINE TESTER Work Phone: [facility] 09-02-2022 11:53-0400 Systolic blood pressure 134 mm[Hg] Gill Older PUTTY REMOVER.GASOLINE TESTER Work Phone: [facility] 06-16-2022 13:46-0500 Respiratory rate 16 /min [facility] 06-16-2022 10:42-0500 Body height 177.8 cm [facility] 06-16-2022 10:42-0500 Body mass index (BMI) [Ratio] 32 kg/m2 [facility] 06-16-2022 10:42-0500 Body temperature 97.8 [degF] [facility] 06-16-2022 10:42-0500 Body weight 101.15 kg [facility] 06-16-2022 10:42-0500 Diastolic blood pressure 91 mm[Hg] [facility] 06-16-2022 10:42-0500 Heart rate 79 /min [facility] 06-16-2022 10:42-0500 SaO2% (BldA) [Mass fraction] 98 % [facility] 06-16-2022 10:42-0500 Systolic blood pressure 141 mm[Hg] [facility] 12-30-2021 10:54-0400 Body weight 95.71 kg Flor Castro MD Work Phone: [facility] 12-30-2021 10:54-0400 Diastolic blood pressure 76 mm[Hg] Flor Castro MD Work Phone: [facility] 12-30-2021 10:54-0400 Systolic blood pressure 110 mm[Hg] Flor Castro MD Work Phone: [facility] 12-29-2021 14:58-0400 Body weight 95.98 kg Christine Big Horn P[employer]TY REMOVER.GASOLINE TESTER Work Phone: [facility] 12-29-2021 14:58-0400 Diastolic blood pressure 72 mm[Hg] Christine Jake [employer]OVER.G[employer]OLINE TE[employer] Work Phone: [facility] 12-29-2021 14:58-0400 Systolic blood pressure 108 mm[Hg] Christine Big Horn P[employer]TY REMOVER.GASOLINE TESTER Work Phone: [facility] 12-22-2021 13:10-0400 Body temperature 97.11 [degF] Treatment Wstr Work Phone: [facility] 12-22-2021 13:10-0400 Diastolic blood pressure 72 mm[Hg] Treatment [facility] Work Phone: [facility] 12-22-2021 13:10-0400 Heart rate 71 /min Treatment [facility] Work Phone: [facility] 12-22-2021 13:10-0400 Systolic blood pressure 140 mm[Hg] Treatment Wstr Work Phone: [facility] 12-18-2021 13:22-0400 Body temperature 97.81 [degF] Treatment Wstr Work Phone: [facility] 12-18-2021 13:22-0400 Diastolic blood pressure 73 mm[Hg] Treatment Wstr Work Phone: [facility] 12-18-2021 13:22-0400 Heart rate 72 /min Treatment Wstr Work Phone: [facility] 12-18-2021 13:22-0400 Systolic blood pressure 119 mm[Hg] Treatment Wstr Work Phone: [facility] 12-10-2021 13:37-0400 Body temperature 97.11 [degF] Treatment Wstr Work Phone: [facility] 12-10-2021 13:37-0400 Diastolic blood pressure 81 mm[Hg] Treatment Wstr Work Phone: [facility] 12-10-2021 13:37-0400 Heart rate 82 /min Treatment Wstr Work Phone: [facility] 12-10-2021 13:37-0400 Respiratory rate 20 /min Treatment Wstr Work Phone: [facility] 12-10-2021 13:37-0400 Systolic blood pressure 142 mm[Hg] Treatment Wstr Work Phone: [facility] 12-08-2021 10:15-0400 Diastolic blood pressure 83 mm[Hg] Treatment Wstr Work Phone: [facility] 12-08-2021 10:15-0400 Heart rate 72 /min Treatment Wstr Work Phone: [facility] 12-08-2021 10:15-0400 SaO2% (BldA) [Mass fraction] 100 % Treatment Wstr Work Phone: [facility] 12-08-2021 10:15-0400 Systolic blood pressure 134 mm[Hg] Treatment Wstr Work Phone: [facility] 12-08-2021 09:52-0400 Body temperature 97.59 [degF] Treatment Wstr Work Phone: [facility] 11-17-2021 07:10-0400 Body height 175.26 cm [facility] Work Phone: 11-17-2021 07:10-0400 Body mass index (BMI) [Ratio] 30.7 kg/m2 [facility] Work Phone: 11-17-2021 07:10-0400 Body temperature 97.4 [degF] [facility] Work Phone: 11-17-2021 07:10-0400 Body weight 94.34 kg [facility] Work Phone: 11-17-2021 07:10-0400 Diastolic blood pressure 94 mm[Hg] [facility] Work Phone: 11-17-2021 07:10-0400 Heart rate 106 /min [facility] Work Phone: 11-17-2021 07:10-0400 Respiratory rate 16 /min [facility] Work Phone: 11-17-2021 07:10-0400 SaO2% (BldA) [Mass fraction] 100 % [facility] Work Phone: 11-17-2021 07:10-0400 Systolic blood pressure 146 mm[Hg] [facility] Work Phone: 11-05-2021 10:07-0400 Body weight 95.71 kg Christine Big Horn PUTTY REMOVER.GASOLINE TESTER Work Phone: [facility] 11-05-2021 10:07-0400 Diastolic blood pressure 68 mm[Hg] Christine Jake PUTTY REMOVER.GASOLINE TESTER Work Phone: [facility] 11-05-2021 10:07-0400 Systolic blood pressure 118 mm[Hg] Christine Big Horn PUTTY REMOVER.GASOLINE TESTER Work Phone: [facility] 10-24-2021 14:25-0400 Heart rate 87 /min [facility] Work Phone: 10-24-2021 14:25-0400 Respiratory rate 16 /min [facility] Work Phone: 10-24-2021 14:25-0400 SaO2% (BldA) [Mass fraction] 97 % [facility] Work Phone: 10-24-2021 11:24-0400 Diastolic blood pressure 69 mm[Hg] [facility] Work Phone: 10-24-2021 11:24-0400 Systolic blood pressure 134 mm[Hg] [facility] Work Phone: 10-24-2021 08:54-0400 Body height 175.26 cm [facility] Work Phone: 10-24-2021 08:54-0400 Body mass index (BMI) [Ratio] 31.4 kg/m2 [facility] Work Phone: 10-24-2021 08:54-0400 Body temperature 97.2 [degF] [facility] Work Phone: 10-24-2021 08:54-0400 Body weight 96.7 kg [facility] Work Phone: Encounters Encounter Date Encounter Type Care Provider Facility Start: 01-19-2025 ambulatory ARMANDO Morris ity:[facility] Start: 01-18-2025 End: 01-18-2025 Telemedicine consultation with patient Sotero Melgarne PharmD Work Phone: [facility] Comment on above: Mitral valve insuffi ciency, unspecified etiology Start: 01-16-2025 End: 01-16-2025 ambulatory MIHIR GLOVER Facility:[facility] Start: 01-09-2025 End: 01-09-2025 Subsequent hospital visit by physician Savanna Poole [place] Anesthesia Joaquín [facility] [place] [place] Comment on above: Arrived Start: 01-09-2025 End: 01-09-2025 ambulatory [facility] Start: 01-09-2025 End: 01-14-2025 Evaluation and management of inpatient Gordon Armstrong MD Work Phone: [facility] [place] [facility] Start: 01-05-2025 End: 01-05-2025 Office outpatient new 45 minutes Gordon Armstrong MD Work Phone: [facility] [place] Comment on above: Mitral valve insuffi ciency, unspecified etiology Start: 01-05-2025 End: 01-05-2025 ambulatory GORDON ARMSTRONG [facility] Start: 12-25-2024 End: 12-25-2024 Subsequent hospital visit by physician Savanna Bartlett X-Ray 1 [facility] [place] Comment on above: Mitral valve insuffi ciency, unspecified etiology Start: 12-25-2024 End: 12-25-2024 ambulatory GORDON ARMSTRONG [facility] Start: 12-25-2024 Evaluation and management of inpatient GORDON ARMSTRONG [facility] Start: 12-25-2024 End: 12-25-2024 ambulatory NO ASSIGNED PCP GENERIC PROVIDER [facility] Start: 12-25-2024 End: 12-25-2024 Encounter for other preprocedural examination NO ASSIGNED PCP GENERIC PROVIDER [facility] Start: 12-18-2024 End: 12-18-2024 ambulatory GORDON ARMSTRONG [facility] Start: 11-17-2024 End: 11-17-2024 Subsequent hospital visit by physician Outside Study [facility] [place] Comment on above: Arrived Start: 11-17-2024 End: 11-17-2024 ambulatory GORDON ARMSTRONG [facility] Start: 11-16-2024 End: 11-16-2024 ambulatory FREDRICK HUBBARD MD Facility: Start: 11-16-2024 End: 11-16-2024 SAME DAY STAY LIO BALBUENA MD [facility] Start: 11-13-2024 End: 11-13-[address] MIHIR GLOVER MD Facility:[facility] Start: 11-13-2024 End: 11-13-2024 Patient encounter procedure KIM ANJELICA JAYN-GASOLINE TESTER [facility] Start: 10-31-2024 End: 10-31-2024 ambulatory RYAN RIVERA MD Facility:A Start: 10-31-2024 End: 10-31-2024 Patient encounter procedure RYAN RIVERA MD [facility] Start: 10-31-2024 End: 10-31-2024 ambulatory SWAPNA MANN MD Facility:[facility] Start: 10-31-2024 End: 10-31-2024 Patient encounter procedure SWAPNA MANN MD [facility] Start: 09-08-2024 End: 09-08-2024 ambulatory SWAPNA MANN [facility] Start: 04-18-2024 End: 04-18-2024 ambulatory GILL KNIGHT Facility:[facility] Start: 02-08-2024 End: 02-08-2024 Emergency department patient visit Mihir Glover Facility:[facility] Start: 10-19-2023 ambulatory SWAPNA MANN [facility] Start: 08-09-2023 ambulatory RAMÓN HUTCHISON [facility] Start: 07-18-2023 End: 07-18-2023 Emergency department patient visit [facility] Work Phone: Start: 04-15-2023 End: 04-15-2023 Emergency department patient visit [facility] Work Phone: Start: 10-30-2022 End: 10-30-2022 Patient encounter procedure Mihir Glover MD Work Phone: [facility] [place] Comment on above: Migraine with aura a nd without status migrainosus, not intractable (Primary Dx) Start: 09-02-2022 End: 09-02-2022 Patient encounter procedure Gill Linares APRN.GASOLINE TESTER Work Phone: [facility] [place] Comment on above: Blood in stool (Prim abdirahman Dx); Constipation, unspecified constipation type; Anemia, unspecified type Start: 06-16-2022 End: 06-16-2022 Emergency department patient visit [facility] Start: 05-13-2022 ambulatory Mihir polanco MD Work Phone: [facility] [place] Start: 02-16-2022 Telephone encounter Flor Castro MD Work Phone: OB/Gynecology Comment on above: Results Start: 02-06-2022 ambulatory Mihir polanco MD Work Phone: [facility] [place] Comment on above: Pain (Pain from abla tion D & C done yesterday. Patient is asking for something for the pain the provider refused to give her anything . ) Start: 02-05-2022 ambulatory Flor chance MD Work Phone: OB/Gynecology Comment on above: Iron deficiency anem ia due to chronic blood loss (Primary Dx); Abnormal uterine bleeding (AUB) Start: 02-05-2022 Patient encounter procedure Flor Castro MD Work Phone: [facility] Start: 01-14-2022 Telephone encounter Flor Castro MD Work Phone: OB/Gynecology Comment on above: Schedule Surgery Start: 12-30-2021 End: 12-30-2021 Patient encounter procedure Flor Castro MD Work Phone: OB/Gynecology Comment on above: Iron deficiency anem ia due to chronic blood loss (Primary Dx); Abnormal uterine bleeding (AUB); Adenomyosis Start: 12-29-2021 End: 12-29-2021 Patient encounter procedure Christine Joseph APRN.CNP Work Phone: OB/Gynecology Comment on above: Iron deficiency anem ia due to chronic blood loss (Primary Dx); Irregular uterine bleeding Start: 12-22-2021 End: 12-22-2021 ambulatory Treatment 7 [facility] Work Phone: Hematology/Oncology Comment on above: Iron deficiency anem ia due to chronic blood loss (Primary Dx) Start: 12-18-2021 End: 12-18-2021 ambulatory Treatment Rm 12 [facility] W[facility] Work Phone: Hematology/Oncology Comment on above: Iron deficiency anem ia due to chronic blood loss (Primary Dx) Start: 12-16-2021 Telephone encounter Derrick barron DO Work Phone: Hematology/Oncology Comment on above: Appointment Cancelle d Start: 12-10-2021 End: 12-10-2021 ambulatory Treatment Rm 7 Jay [facility] Work Phone: Hematology/Oncology Comment on above: Iron deficiency anem ia due to chronic blood loss (Primary Dx) Start: 12-09-2021 Telephone encounter Latasha alexander RN Work Phone: Hematology/Oncology Comment on above: Medication Problem ( Iron infusion) Start: 12-08-2021 End: 12-08-2021 ambulatory Treatment Rm 12 [facility] Work Phone: Hematology/Oncology Comment on above: Iron deficiency anem ia due to chronic blood loss (Primary Dx) Start: 12-03-2021 Telephone encounter Kristi michaels APRN.GASOLINE TESTER Work Phone: OB/Gynecology Comment on above: Results Start: 12-01-2021 Telephone encounter Christine guerra APRN.GASOLINE TESTER Work Phone: OB/Gynecology Comment on above: Appointment Start: 11-20-2021 MC Patient Msg [facility] Provider [facility] [place] Comment on above: Blood Management ref erral - orders for IV iron infusions Iron deficiency anem ia due to chronic blood loss Start: 11-18-2021 ambulatory Mariza Reilly RN Interna l Medicine [facility] [place] Comment on above: Iron deficiency anem ia due to chronic blood loss; Intestinal malabsorption, unspecified type Start: 11-17-2021 End: 11-17-2021 Emergency department patient visit [facility] Start: 11-13-2021 Telephone encounter Nazia ha MD Work Phone: OB/Gynecology Comment on above: Patient Update; Anem ia Start: 11-11-2021 Telephone encounter Tanisha Tompkins MD Work Phone: OB/Gynecology Comment on above: Patient Question Start: 11-05-2021 End: 11-05-2021 Patient encounter procedure Christine Joseph APRN.GASOLINE TESTER Work Phone: OB/Gynecology Comment on above: Abnormal uterine ble eding (AUB) (Primary Dx); Iron deficiency anemia due to chronic blood loss; Abnormal hemoglobin (Hgb) (HCC) Start: 10-24-2021 End: 10-24-2021 Emergency department patient visit [facility] Start: 04-02-2021 Orders Only Mihir polanco MD Work Phone: [facility] [place] Comment on above: Special screening fo r malignant neoplasms, colon Start: 09-20-2020 ambulatory [facility] Provider OB/Gynecol lam Comment on above: Test Results Start: 09-20-2020 E-mail encounter fro m caregiver [facility] Provider [facility] Start: 11-09-2018 E-mail encounter fro m caregiver Veena Padilla MA [facility] Start: 11-09-2018 Patient encounter procedure Veena Padilla [facility] [place] Comment on above: Appointment Start: 11-07-2018 E-mail encounter fro m caregiver Veena Padilla MA [facility] Start: 11-07-2018 Follow-up encounter Veena Padilla MA [facility] [place] Comment on above: Follow up appointmen t Start: 08-29-2018 E-mail encounter fro m caregiver Veena Padilla MA [facility] Start: 08-29-2018 Follow-up encounter Veena Padilla MA [facility] [place] Comment on above: Follow up appointmen t Start: 12-28-2017 ambulatory [facility] Provider Neurology Comment on above: Confirming Sleep Terry dy Start: 12-28-2017 E-mail encounter fro m caregiver [facility] Provider [facility] Start: 12-13-2017 Chart abstracting [facility] Main Work Phone: Neurology Comment on above: Psg Check In (Adult) Start: 02-27-2015 ambulatory [facility] Provider Medical Re cords Comment on above: Pre Visit Planning Tarik Chao Start: 02-27-2015 E-mail encounter fro m caregiver [facility] Provider [facility] Start: 08-24-2014 ambulatory [facility] Provider Medical Re cords Comment on above: Pre visit Planning Tarik ofeliaBianca Chao Start: 08-24-2014 E-mail encounter fro m caregiver [facility] Provider [facility] Start: 08-29-2009 ambulatory [facility] Provider Medical Re cords Comment on above: Your Personal Invita tion Start: 08-29-2009 E-mail encounter fro m caregiver [facility] Provider [facility] Start: 12-07-2008 ambulatory [facility] Provider Medical Re cords Comment on above: RE: Request a Preven tive Care Procedure Start: 12-07-2008 E-mail encounter fro m caregiver [facility] Provider [facility] Start: 08-24-2006 E-mail encounter fro m caregiver [facility] Provider [facility] Start: 08-24-2006 Patient encounter procedure [facility] Provider Medical Records Comment on above: RE: Appointment Requ est form Procedures Date Procedure Procedure Detail Performing Clinician Start: 01-14-2025 Radiologic exam chest 2 views Kristi Locke PUTTY REMOVER-GASOLINE TESTER Work Phone: Start: 01-14-2025 Renal function panel Carlie Barba PUTTY REMOVER -GASOLINE TESTER Work Phone: Start: 01-13-2025 PULSE OXIMETRY, SPOT Carlie Lizamao PUTTY REMOVER -GASOLINE TESTER Work Phone: Start: 01-13-2025 2D TTE w or w/o fol w/con,fu Kristi Hammondager PUTTY REMOVER-GASOLINE TESTER Work Phone: Start: 01-13-2025 PULSE OXIMETRY, SPOT Carlie Barba PUTTY REMOVER -GASOLINE TESTER Work Phone: Start: 01-13-2025 Renal function panel Carlie Barba PUTTY REMOVER -GASOLINE TESTER Work Phone: Start: 01-13-2025 PULSE OXIMETRY, SPOT Carlie Lizamao PUTTY REMOVER -GASOLINE TESTER Work Phone: Start: 01-13-2025 PULSE OXIMETRY, SPOT Carlie Barba PUTTY REMOVER -GASOLINE TESTER Work Phone: Start: 01-12-2025 Glucose quantitative blood xcpt reagent strip Gordon Armstrong MD Work Phone: Start: 01-12-2025 PULSE OXIMETRY, SPOT Carlie Bello Aulisio PUTTY REMOVER -GASOLINE TESTER Work Phone: Start: 01-12-2025 Glucose quantitative blood xcpt reagent strip Gordon Armstrong MD Work Phone: Start: 01-12-2025 PULSE OXIMETRY, SPOT Carlie Bello Aulisio PUTTY REMOVER -GASOLINE TESTER Work Phone: Start: 01-12-2025 Glucose quantitative blood xcpt reagent strip Gordon Armstrong MD Work Phone: Start: 01-12-2025 PULSE OXIMETRY, SPOT Carlie Bello Aulisio PUTTY REMOVER -GASOLINE TESTER Work Phone: Start: 01-12-2025 Glucose quantitative blood xcpt reagent strip Gordon Armstrong MD Work Phone: Start: 01-12-2025 Radiologic exam chest 2 views Kristi C Zeager PUTTY REMOVER-GASOLINE TESTER Work Phone: Start: 01-12-2025 Glucose quantitative blood xcpt reagent strip Gordon Armstrong MD Work Phone: Start: 01-12-2025 PULSE OXIMETRY, SPOT Carlie Bello Aulisio PUTTY REMOVER -GASOLINE TESTER Work Phone: Start: 01-12-2025 Renal function panel Carlie S Aulisio PUTTY REMOVER -GASOLINE TESTER Work Phone: Start: 01-12-2025 PULSE OXIMETRY, SPOT Carlie S Aulisio PUTTY REMOVER -GASOLINE TESTER Work Phone: Start: 01-12-2025 PULSE OXIMETRY, SPOT Carlie S Aulisio PUTTY REMOVER -GASOLINE TESTER Work Phone: Start: 01-11-2025 PULSE OXIMETRY, SPOT Carlie S Aulisio PUTTY REMOVER -GASOLINE TESTER Work Phone: Start: 01-11-2025 Glucose quantitative blood xcpt reagent strip Gordon Armstrong MD Work Phone: Start: 01-11-2025 PULSE OXIMETRY, SPOT Carlie Lizamao PUTTY REMOVER -GASOLINE TESTER Work Phone: Start: 01-11-2025 Glucose quantitative blood xcpt reagent strip Gordon Armstrong MD Work Phone: Start: 01-11-2025 PULSE OXIMETRY, SPOT Carlie Beltransio PUTTY REMOVER -GASOLINE TESTER Work Phone: Start: 01-11-2025 PULSE OXIMETRY, SPOT Carlie Bello Aulisio PUTTY REMOVER -GASOLINE TESTER Work Phone: Start: 01-11-2025 End: 01-11-2025 Renal function panel Carlie Barba PUTTY REMOVER -GASOLINE TESTER Work Phone: Start: 01-11-2025 PULSE OXIMETRY, SERG Beltransio PUTTY REMOVER -GASOLINE TESTER Work Phone: Start: 01-11-2025 Radiologic exam chest single view Carlie Barba PUTTY REMOVER-GASOLINE TESTER Work Phone: Start: 01-11-2025 PULSE OXIMETRY, SPOT Carlie Bello Aulisio PUTTY REMOVER -GASOLINE TESTER Work Phone: Start: 01-10-2025 PULSE OXIMETRY, SERG Bello Aukarensio PUTTY REMOVER -GASOLINE TESTER Work Phone: Start: 01-10-2025 Glucose quantitative blood xcpt reagent strip Gordon Armstrong MD Work Phone: Start: 01-10-2025 PULSE OXIMETRY, SPOT Carlie Bello Aulisio PUTTY REMOVER -GASOLINE TESTER Work Phone: Start: 01-10-2025 PULSE OXIMETRY, SPOT Carlie Bello Aubenjyo PUTTY REMOVER -GASOLINE TESTER Work Phone: Start: 01-10-2025 Glucose quantitative blood xcpt reagent strip Gordon Armstrong MD Work Phone: Start: 01-10-2025 PULSE OXIMETRY, SPOT Carlie Lizamao PUTTY REMOVER -GASOLINE TESTER Work Phone: Start: 01-10-2025 Glucose quantitative blood xcpt reagent strip Gordon Armstrong MD Work Phone: Start: 01-10-2025 Radiologic exam chest single view Carlie Barba [facility] Work Phone: Start: 01-10-2025 Renal function panel Candi Reid [facility] Work Phone: Start: 01-10-2025 Glucose quantitative blood xcpt reagent strip Gordon Armstrong MD Work Phone: Start: 01-09-2025 Glucose quantitative blood xcpt reagent strip Gordon Armstrong MD Work Phone: Start: 01-09-2025 Glucose quantitative blood xcpt reagent strip Gordon Armstrong MD Work Phone: Start: 01-09-2025 Chloride bld Scott Eddir PA-C Work Phone: Start: 01-09-2025 EXTUBATION Luke Mohamud MD Work Phone: Start: 01-09-2025 Chloride bld Scott Eddir PA-C Work Phone: Start: 01-09-2025 Milena-px dev eval & prog sing/dual/multi lead dfb Candi Reid [facility] Work Phone: Start: 01-09-2025 Radiologic exam chest single view Scott Eddir PA-C Work Phone: Start: 01-09-2025 End: 01-09-2025 Chloride bld Scott Eddir PA-C Work Phone: Start: 01-09-2025 Chloride bld Gordon Armstrong MD Work Phone: Start: 01-09-2025 End: 01-09-2025 Coagulation time activated Interface Unspecifiedprovider Work Phone: Start: 01-09-2025 Culture fngi mold/yeast prsmptv oth xcpt blood Gordon Armstrong MD Work Phone: Start: 01-09-2025 End: 01-09-2025 Coagulation time activated Interface Unspecifiedprovider Work Phone: Start: 01-09-2025 End: 01-09-2025 Coagulation time activated Interface Unspecifiedprovider Work Phone: Start: 01-09-2025 Echo transesophag r-t 2d w/prb img acquisj i&r Tee J Rekolt PUTTY REMOVER-[employer]ALS Work Phone: Start: 01-09-2025 PREPARE RBC Teetashi Rodriguezkolt P[employer]TY REMOVER [employer] Work Phone: Start: 01-09-2025 Blood typing serologic rh (d) Tee Rodriguezkolt PUTTY REMOVER[employer]GALS Work Phone: Start: 01-09-2025 End: 01-09-2025 Valvuloplasty mitral valve w/cardiac bypass Gordon Armstrong MD Work Phone: Start: 01-09-2025 Urine test visual color cmprsn meths Gordon Armstrong MD Work Phone: Start: 12-25-2024 Radiologic exam chest 2 views Gordon Armstrong MD Work Phone: Start: 11-17-2024 CARD ECHOCARDIOGRAM NON BILL OUTSIDE STUDY ONLY Gordon Armstrong MD Work Phone: Start: 11-17-2024 CATH AND OR EP TEST NON BILL OUTSIDE STUDY ONLY Gordon Armstrong MD Work Phone: Start: 08-09-2023 Colonoscopy Outside Study Start: 07-18-2023 Diagnostic radiography of abdomen Start: 04-15-2023 Viral antigen assay Start: 01-21-2023 Mammography Outside Study Start: 07-13-2022 Echocardiography SWAPNA MANN MD Start: 11-17-2021 Plain chest X-ray Start: 10-24-2021 Transvaginal echography Start: 07-09-2021 Echocardiography SWAPNA MANN MD Start: 04-02-2021 Mammography Christine Joseph APRN.C [employer] SALES REPRESENTATIVE Work Phone: Start: 04-01-2021 FECAL OCCULT BLOOD TEST Mihir saleh MD Work Phone: Start: 08-21-2020 Adult depression screening assessment Christine Joseph LORRIE Work Phone: Start: 07-19-2020 Replacement of pulse generator of automatic cardioverter/defibrillato r SWAPNA MANN MD Start: 06-26-2020 Echocardiography SWAPNA MANN MD Comment on above: EF 55-60% Cardiac catheterization BRENDA BALBUENA MD Cardiac resynchroniz ation therapy implantable defibrillator (physical object) SWAPNA MANN MD section SWAPNA Trejo MD Dental LIO BALBUENA MD Comment on above: all teeth removal Insertion of cardiac biventricular implantable cardioverter defibrillator (ICD) using fluoroscopic guidance SWAPNA MANN MD Comment on above: [employer] ROLLER PRESSER OPERATOR-D [id number] SN [id number] RA lead: RV lead: [facility] [facility] [employer] 7122 [address] SN [id number] 05-15-08 Biventricular (ROLLER PRESSER OPERATOR-D ) defibrillator generator replacement performed by Dr. Naranjo on 07/19/2020 at [facility]. New ROLLER PRESSER OPERATOR-D generator is a [employer] Unify Assura model #3357-40C, serial #[id number]. Chronic RA lead is a [employer] Tendril STS model #2088TC/46cm, serial #[id number], implanted on 09/01/2012. Chronic RV lead is a [employer] Durata model #7122/65cm, serial #[id number], implanted on 05/15/2008. Chronic LV lead is a [employer] QuickFlex model #1156/75cm, serial #[id number], implanted on 05/15/2008. LV lead: [facility] 1156T SN [id number] RA lead: [employer] 2088TC SN [id number] Ligation of fallopia n tube SWAPNA MANN MD Plan of Treatment Date Care Activity Detail Author Start: 08-08-2033 Screening for malign ant neoplasm of colon [facility] Start: 08-08-2028 Screening for malign ant neoplasm of colon [facility] Start: 10-28-2027 DTaP/Tdap/Td Vaccine s (2 - Td or Tdap) DTaP/Tdap/Td Vaccines (2 - Td or Tdap) [facility] Start: 10-28-2027 Urine microalbumin profile DTAP,TDAP,TD (2 - Td or Tdap) [facility] Start: 10-28-[address] [facility] Start: 04-02-2026 LIPID SCREEN LIPID SCREEN [facility] Start: 01-14-2026 Diabetes mellitus screening Diabetes Screening [facility] Start: 09-23-2025 Zoster Vaccines (1 of 2) Zoste r Vaccines (1 of 2) [facility] Start: 09-23-[address] [facility] Start: 09-16-2025 HPV TESTING HPV TESTING [facility] Start: 09-16-2025 PAP TESTING PAP TESTING [facility] Start: 09-02-2025 DIABETES SCREEN DIABETES SCREEN [facility] Start: 03-09-2025 End: 03-09-2025 Patient encounter procedure 03/09/2025 9:15 AM EDT Office Visit [facility] [place] [id number] [place] [address] [place] [id number] Department [place] [address] [facility] Start: 01-29-2025 End: 01-29-2025 Telemedicine consultation with patient 01/29/2025 2:40 PM EDT Telemedicine Clinical Support [facility] [place] [address] [place] [address] [facility] Start: 01-18-2025 ambulatory [place] [id number] Start: 01-18-2025 End: 01-11-2026 CBC panel - Blood by Automated count [facility] [facility] Work Phone: Start: 01-18-2025 End: 01-11-2026 Magnesium [Mass/volume] in Serum or Plasma [facility] Work Phone: Start: 01-18-2025 End: 01-11-2026 Renal function 2000 panel - Serum or Plasma [facility] Work Phone: Start: 01-09-2025 End: 01-09-2025 Admission to same day surgery center 01/09/2025 6:45 AM EDT - 01/09/2025 12:30 PM EDT Surgery [facility] [place] [address] [place] [address] [place] [address] [address] Department of Surgery-Cardiac [place] [id number] REPAIR, MITRAL VALVE [86037 (CPT )] [facility] [place] Comment on above: REPAIR, MITRAL VALVE [04149 (CPT )] Start: 01-09-2025 End: 01-09-2025 Valvuloplasty mitral valve w/cardiac bypass REPAIR, MITRAL VALVE Mitral valve insufficiency, unspecified etiology 01/09/2025 6:45 AM EDT Virtual [facility] [place] Start: 01-09-2025 Subsequent hospital visit by physician 01/09/2025 5:15 AM EDT Hospital Encounter [facility] [place] [address] [place] [address] [place] [address] [place] [address] [facility] [place] Start: 01-08-2025 COVID-19 Vaccine ( season) COVID-19 Vaccine ( season) [facility] Start: 01-08-2025 Influenza vaccination [facility] Start: 01-08-[address] [facility] Start: 01-05-2025 End: 01-05-2025 Patient encounter procedure 01/05/2025 8:15 AM EDT Office Visit [facility] [place] [address] [place] [address] [place] [address] [address] Department [place] [address] [facility] [place] Start: 01-22-2024 Screening for malign ant neoplasm of breast [facility] Start: 01-09-2024 COVID-19 Vaccine ( season) COVID-19 Vaccine ( season) [facility] Start: 10-31-2023 ANNUAL PCP TEAM APPRENTICE CLIFTON DISEASE VISIT ANNUAL PCP TEAM CHRONIC DISEASE VISIT [facility] Start: 09-03-2023 ANNUAL PCP TEAM APPRENTICE CLIFTON DISEASE VISIT ANNUAL PCP TEAM CHRONIC DISEASE VISIT [facility] Start: 08-22-2023 DIABETES SCREEN DIABETES SCREEN [facility] Start: 07-18-2023 [facility] Start: 04-15-2023 [facility] Start: 04-15-2023 [facility] Start: 01-08-2023 Influenza vaccination INFLUENZ A (Season Ended) [facility] Start: 09-02-2022 End: 11-02-2022 Comprehensive metabolic 2000 panel - Serum or Plasma [facility] Work Phone: Comment on above: Expected: 09/02/2022 , Expires: 11/02/2022 Start: 09-02-2022 End: 11-02-2022 Ferritin [Mass/volume] in Serum or Plasma [facility] Work Phone: Comment on above: Expected: 09/02/2022 , Expires: 11/02/2022 Start: 09-02-2022 End: 11-02-2022 Iron and Iron binding capacity panel - Serum or Plasma [facility] Work Phone: Comment on above: Expected: 09/02/2022 , Expires: 11/02/2022 Start: 09-02-2022 End: 11-02-2022 Thyrotropin [Units/volume] in Serum or Plasma [facility] Work Phone: Comment on above: Expected: 09/02/2022 , Expires: 11/02/2022 Start: 05-10-2022 DEPRESSION ASSESSMENT DEPRESSION ASS ESSMENT [facility] Start: 04-02-2022 Mammography MAMMOGRAM [facility] Start: 04-01-2022 COLORECTAL CANCER SCREENING COLORECTAL CANCER SCREENING [facility] Start: 04-01-2022 FECAL OCCULT BLOOD FECAL OCCULT BLOO D [facility] Start: 03-26-2022 ANNUAL PCP TEAM APPRENTICE CLIFTON DISEASE VISIT ANNUAL PCP TEAM CHRONIC DISEASE VISIT [facility] Start: 01-08-2022 Influenza vaccination [facility] Start: 12-29-2021 End: 02-28-2022 Ferritin [Mass/volume] in Serum or Plasma [facility] Work Phone: Comment on above: Expected: 12/29/2021 , Expires: 02/28/2022 Start: 12-29-2021 End: 02-28-2022 Iron and Iron binding capacity panel - Serum or Plasma [facility] Work Phone: Comment on above: Expected: 12/29/2021 , Expires: 02/28/2022 Start: 12-01-2021 End: 01-31-2022 CBC W Auto Differential panel - Blood CBC + DIFF Lab Routine Menorrhagia with irregular cycle Expected: 12/01/2021, Expires: 01/31/2022 [facility] Work Phone: Comment on above: Expected: 12/01/2021 , Expires: 01/31/2022 Start: 12-01-2021 End: 01-31-2022 Ferritin [Mass/volume] in Serum or Plasma FERRITIN BLD Lab Routine Menorrhagia with irregular cycle Expected: 12/01/2021, Expires: 01/31/2022 [facility] Work Phone: Comment on above: Expected: 12/01/2021 , Expires: 01/31/2022 Start: 12-01-2021 End: 2022 Iron and Iron binding capacity panel - Serum or Plasma IRON + TIBC Lab Routine Menorrhagia with irregular cycle Expected: 12/01/2021, Expires: 01/31/2022 [facility] Work Phone: Comment on above: Expected: 12/01/2021 , Expires: 01/31/2022 Start: 08-21-2021 Adult depression screening assessment DEPRESSION SCREENING [facility] Start: 05-10-2021 DEPRESSION ASSESSMENT DEPRESSION ASS ESSMENT [facility] Start: 09-23-2020 COLOGUARD (FIT-DNA) COLOGUARD (FIT-D NA) [facility] Start: 09-23-2020 Colonoscopy COLONOSCOPY [facility] Start: 09-23-[address] COLONOGRAPHY [facility] Start: 09-23-2020 SIGMOIDOSCOPY SIGMOIDOSCOPY [facility] Start: 06-12-2006 PNEUMOCOCCAL (2 - PCV) PNEUMOCOCCAL (2 - PCV) [facility] Start: 06-12-2006 Pneumococcal Vaccine : Pediatrics and At-Risk Adult Patients (2 of 2 - PCV) Pneumococcal Vaccine: Pediatrics and At-Risk Adult Patients (2 of 2 - PCV) [facility] Start: 06-12-[address] [facility] Start: 02-18-2006 HEPATITIS B (2 of 3 - 3-dose series) [facility] Start: 02-18-2006 Hepatitis B Vaccines (2 of 3 - 19+ 3-dose series) Hepatitis B Vaccines (2 of 3 - 19+ 3-dose series) [facility] Start: 02-18-[address] [facility] Start: 09-23-1996 Screening for malign ant neoplasm of cervix [facility] Start: 09-23-1993 Hepatitis C screening [facility] Start: 09-23-1993 SPIROMETRY SPIROMETRY [facility] Start: 09-23-1980 COVID-19 VACCINE (#1) COVID-19 VACCI NE (#1) [facility] Start: 09-23-1976 MMR Vaccines (1 of 1 - Standard series) MMR Vaccines (1 of 1 - Standard series) [facility] Start: 09-23-[address] [facility] Start: 03-26-1976 COVID-19 VACCINE (#1) COVID-19 VACCI NE (#1) [facility] Start: 1975 HIV screening [facility] Start: 1975 Lipid panel [facility] Start: 1975 Screening for malign ant neoplasm of colon [facility] Start: 1975 Yearly Adult Physical Yearly Adult P hysical [facility] Start: [address] [facility] End: 01-09-2025 Cardiac device check - Inpatient [facility] Work Phone: CBC panel - Blood by Automated count [facility] Work Phone: End: 01-10-2025 Determination of physical activity tolerance [facility] Work Phone: End: 01-09-2025 ECG [address] [facility] Work Phone: End: 01-10-2025 Encourage deep breathing and coughing [facility] Work Phone: Endometrial bx w/wo endocervix bx w/o dilat spx ENDOMETRIAL BIOPSY Procedures Routine Abnormal uterine bleeding (AUB) Ordered: 12/30/2021 [facility] Work Phone: Comment on above: Ordered: 12/30/2021 Fungus identified in Unspecified specimen by Culture [facility] Work Phone: Glucose [Mass/volume ] in Serum or Plasma [facility] Work Phone: End: 01-10-2025 Incentive spirometry Instruct [facility] Work Phone: Magnesium [Mass/volu me] in Serum or Plasma [facility] Work Phone: End: 06-12-2023 DREA SCREENING DREA SCREENING Radiology Routine Encounter for screening mammogram for breast cancer 1 Occurrences starting 05/13/2022 until 06/12/2023 [facility] Work Phone: Comment on above: 1 Occurrences starti ng 05/13/2022 until 06/12/2023 Patient Education [facility] Work Phone: Patient referral [facility] Work Phone: Pulse oximetry, spot [facility] Work Phone: Renal function 2000 panel - Serum or Plasma [facility] Work Phone: Streptococcus pyogen es antigen assay Group A Streptococcus Rapid Screen [facility] Surgical pathology study [facility] S Service Area Work Phone: [facility] Immunizations Immunization Date Immunization Notes Care Provider Fa cili 06-07-2019 influenza, injectabl e, quadrivalent, contains preservative Christine Big Horn PUTTY REMOVER.GASOLINE TESTER Work Phone: [facility] Work Phone: 06-07-2019 influenza virus vacc ine, unspecified formulation Outside Study [facility] Work Phone: 10-27-2017 tetanus toxoid, redu david diphtheria toxoid, and acellular pertussis vaccine, adsorbed Christine Big Horn PUTTY REMOVER.GASOLINE TESTER Work Phone: [facility] Work Phone: 01-21-2006 hepatitis B vaccine, adult dosage Christine Big Horn PUTTY REMOVER.GASOLINE TESTER Work Phone: [facility] Work Phone: 01-21-2006 hepatitis B vaccine, unspecified formulation Derrick Hinds DO Work Phone: [facility] 06-12-2005 pneumococcal polysaccharide vaccine, 23 valent Christine Jake PUTTY REMOVER.GASOLINE TESTER Work Phone: [facility] 06-12-2005 tetanus and diphther ia toxoids, adsorbed, preservative free, for adult use (2 Lf of tetanus toxoid and 2 Lf of diphtheria toxoid) Christine Big Horn PUTTY REMOVER.GASOLINE TESTER Work Phone: [facility] Payers Date Payer Category Payer Self-pay [id number] 2017 Medicaid (Managed Care) 1.2. [id number] 2017 Unknown [id number] 2014 Medicaid [facility] MEDICAID [id number] 2014-Present [phone] [address] [place] [address] Medicaid [id number] 2007 Medicaid [id number] 1975 Unknown [id number] [id number]. 651 1975 Unknown [id number] [id number]. 651 1975 Unknown [id number] [id number]. 627 1975 Unknown [id number] [id number]. 627 1975 Unknown [id number] [id number]. 627 1975 Unknown [id number] [id number]. 627 1975 Unknown [id number] [id number]. 124 1975 Unknown [id number] 2.16840.1.431326.3.579.2. 124 1975 Unknown [id number] [id number]. 124 1975 Unknown [id number] 2.16840.1.245824.3.579.2. 1245 1975 Unknown [id number] 2.16.840.1.115549.3.579.2. 124 1975 Unknown [id number] [id number]. 1245 1975 Unknown [id number] [id number]. 124 1975 Unknown [id number] [id number]. 1245 Unknown [id number] Unknown [id number] [id number]. 462 Unknown [id number] [id number]. 462 Social History Date Type Detail Facility [facility] Work Phone: Start: 10-24-2021 End: 07-18-2023 Tobacco smoking status [facility] Unknown if ever smoked [facility] Start: 12-27-2018 None [facility] Start: 1975 Sex Assigned At Female [facility] Start: 12-01-2018 End: 01-18-2025 Tobacco smoking status CTIS Ex-smoker [facility] Work Phone: End: 05-10-2019 History of tobacco use Current smoker [facility] Work Phone: End: 05-10-2019 History of tobacco use Cigarette Smoker [facility] Work Phone: Start: 12-01-2018 End: 01-16-2025 Cigarettes smoked current (pack per day) - Reported 2 [facility] Start: 12-01-2018 End: 01-18-2025 Tobacco use and exposure Smokeless tobacco non-user [facility] Work Phone: Start: 03-26-2021 End: 09-02-2022 Alcohol intake Current drinker of alcohol (finding) [facility] Start: 06-05-2019 History SDOH Alcohol Frequency 1 [facility] Start: 06-05-2019 History SDOH Social Connections Phone 5 [facility] Start: 06-05-2019 History SDOH Social Connections Membership 2 [facility] Start: 06-05-2019 History SDOH Physica l Activity DPW 0 [facility] Start: 06-05-2019 History SDOH Stress 4 [facility] Start: 06-05-2019 History SDOH Financial 3 [facility] Start: 06-04-2019 Education 14 [facility] Start: 03-03-2021 End: 01-30-2022 Exposure to SARS-CoV-2 (event) Not sure [facility] Start: 10-26-2011 Tobacco smoking stat us CTIS Smokes tobacco daily [facility] Start: 08-24-2006 End: 05-12-2007 Alcohol intake Current non-drinker of alcohol (finding) [facility] Start: 10-30-2022 End: 01-18-2025 Alcohol intake Ex-drinker (finding) [facility] Sexual Orientation [facility] Start: 09-04-2016 Sex Female (finding) [facility] Start: 1975 Sex assigned at Not on file [facility] Work Phone: Start: 12-25-2024 End: 01-16-2025 Gender identity Not on file [facility] Work Phone: Start: 11-28-2024 Tobacco Comment I'm not exactl y sure when I stopped smoking but it's been over [address] [facility] Work Phone: Start: 11-28-2024 Alcohol Comment in the last 10 years I have not drank more than a couple drinks a year [facility] Work Phone: Start: 11-17-2024 Sex Female [facility] How hard is it for y ou to pay for the very basics like food, housing, medical care, and heating Not very hard [facility] In the past 12 month s, was there a time when you were not able to pay the mortgage or rent on time? No [facility] Work Phone: History of tobacco use Cigar Smoker [facility] Work Phone: Are you now , , , , never or living with a partner? Living with partner [facility] Work Phone: How often to you hav e a drink containing alcohol? Never [facility] Work Phone: How hard is it for y ou to pay for the very basics like food, housing, medical care, and heating Somewhat hard [facility] Work Phone: Do you feel stress - tense, restless, nervous, or anxious, or unable to sleep at night because your mind is troubled all the time - these days [OSQ] Rather much [facility] Work Phone: (I/We) worried claudia er (my/our) food would run out before (I/we) got money to buy more. Often true 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 Work Phone: 01-05-2025 Patient Health [facility] ionnaire 2 item (PHQ-2) [Reported] 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 Work Phone: Mental Status Date Assessment Result Facility 04-15-2023 Cognitive function Level Of Cons ciousness Awake;Alert;Appropriate;Follow s Commands [facility] Work Phone: 11-17-2021 Cognitive function Level Of Cons ciousness Awake;Alert;Appropriate;Follow s Commands [facility] Work Phone: Clinical Notes 09-01-2012 to 01-18-2025 Sotero Feldman, PharmD - 01/18/2025 8:00 AM STANISLAWbrandon Shi Manishmarina, JOSR-LEIF - 01/14/2025 10:07 AM STANISLAWbrandon Jose Guadalupe Locke, JOSR-LEIF - 01/14/2025 9:37 AM Sheela Luna RN - 01/13/2025 12:39 PM EDT Note Date & Type Note Facility 01-18-2025 History of Presen t illness Narrative Healthy at Home [facility] Michell Ponce is a 49 y.o. female was referred to Clinical Pharmacy Team to complete a post-discharge medication optimization and monitoring visit. The patient was referred for multiple concerns while in [facility]. Today was our initial visit. Admission Date: 01/09 Discharge Date: 01/14 Referring Provider: Jeanne Castro AP* PCP: Mihir Glover MD - not with Subjective Allergies[1] [facility] [address] [place] [address] [facility] [address], [address] [facility] [address] Medication System Management: Affordability/Accessibility: Medicaid Adherence/Organization: no issues Social History Social History Narrative Not on file Notable Medication changes following discharge: Start: aspirin, lasix, metop tart Stop: none Change: none HPI Review of Systems Objective There were no vitals taken for this visit. BP Readings from Last 4 Encounters: 01/17/25 107/67 01/14/25 101/70 01/05/25 117/80 12/25/24 (!) 134/91 There were no vitals filed for this visit. LAB Lab Results Component Value Date BILITOT 0.5 12/25/2024 CALCIUM 8.4 (L) 01/14/2025 CO2 26 01/14/2025 CL 103 01/14/2025 CREATININE 0.74 01/14/2025 GLUCOSE 104 (H) 01/14/2025 ALKPHOS 67 12/25/2024 K 4.1 01/14/2025 PROT 6.4 12/25/2024 NA 137 01/14/2025 AST 17 12/25/2024 ALT 16 12/25/2024 BUN 12 01/14/2025 ANIONGAP 12 01/14/2025 MG 2.12 01/14/2025 PHOS 3.8 01/14/2025 ALBUMIN 3.3 (L) 01/14/2025 No results found for: TRIG, CHOL, LDLCALC, HDL Lab Results Component Value Date HGBA1C 5.3 12/29/2022 Current Outpatient Medications Medication Instructions acetaminophen (TYLENOL) 975 mg, oral, Every 6 hours PRN aspirin 81 mg, oral, Daily docusate sodium (COLACE) 100 mg, oral, 2 times daily PRN furosemide (LASIX) 20 mg, oral, Daily LORazepam (ATIVAN) 0.5 mg, Daily PRN metoprolol tartrate (LOPRESSOR) 12.5 mg, oral, 2 times daily multivitamin with minerals tablet 1 tablet, oral, Daily polyethylene glycol (GLYCOLAX, MIRALAX) 17 g, oral, Daily PRN HISTORICAL PHARMACOTHERAPY Was not taking any maintenance medications prior to this admission DRUG INTERACTIONS None at time of review Assessment/Plan Problem List Items Addressed This Visit Mitral valve insufficiency, unspecified etiology -feeling good today overall, considering after going through her procedure -does get a slight vibration in her chest intermittently when she breathes -her O2 sats have all been great though - she was 96% on room air this morning -does get some muscle pains/soreness when having to sneeze (has her pillow) -her incision is healing well - she states it looks great -she is monitoring her BP's and weights also BP 125/82 (before meds) Medications Changes/Concerns: D/c meds: 1. tylenol prn 2. aspirin 81mg daily 3. docusate 100mg bid prn 4. lasix 20mg daily x 5 days 5. metop tart 12.5mg bid 6. MVI daily 7. miralax daily prn -[facility] Refills Needed: -none needed today Plan/To Do: -continue to log daily weights and BP's -nursing will continue with daily calls until next [facility] visit [facility] Status: -n/a -has Medicaid Time Spent with Patient and [facility] Team - Ollie Castro NP and Juanita Jean RN via video visit: 20 minutes Follow Up: 1 week Continue all meds under the continuation of care with the referring provider and clinical pharmacy team. Sotero Feldman PharmD Verbal consent to manage patient's drug therapy was obtained from the patient. They were informed they may decline to participate or withdraw from participation in pharmacy services at any time. [1] Allergies Allergen Reactions Lisinopril Other and Unknown Neck pain Naproxen Other PALPITATIONS Adhesive Tape-Silicones Hives Antihistamines - Ethylenediamine Other Diphenhydramine Other Causes Panic Attacks Morphine Hives and Itching Sertraline Palpitations Topiramate Palpitations documented in this encounter [facility] Work Phone: 01-16-2025 Note HNO ID: [id number] Author: MIHIR GLOVER MD Service: ? Author Type: Physician Type: Progress Notes Filed: 01/16/2025 22:07 Note Text: Subjective Michell Wooten is a 49 year old adult with significant other. Patient presents with: Transition Of Care Transitional Care Management Progress Note The patients TCM visit was performed within the 7 days of discharge. Patient's Date of discharge: 01/14/25 Date of initial coordinator contact after discharge: NA Discharge diagnosis: s/p mitral valve repair. Medication review completed Yes Mihir Glover MD Provider Documentation: In follow-up of hospitalization, Michell Wooten is a 49 year old adult with the chief complaint of transition of care. I have reviewed the patient's last hospital course including diagnostic testing performed during this hospitalization, their discharge medications, and my assessment and plan with the patient and significant other present at today's visit. Michell had been following with [facility] for cardiomyopathy. She had been diagnosed with mitral regurgitation several years ago. She developed progressive dyspnea on exertion and was diagnosed with severe mitral regurgitation. She underwent mitral valve repair and was here for follow up. Postoperative pain was controlled. She had coughing from throat dryness and this caused some pain of her right rib. She denied unusual chest pain or dyspnea. She had an order for therapy which I assume is cardiac rehab. She was advised to have her labs (CBC, Renal panel, magnesium) rechecked in one week. Review of Systems Constitutional: Negative for fatigue and fever. HENT: Positive for sore throat. Negative for congestion and trouble swallowing. Respiratory: Positive for cough. Negative for chest tightness, shortness of breath and wheezing. Cardiovascular: Negative for chest pain, palpitations and leg swelling. Gastrointestinal: Negative for abdominal pain, constipation, diarrhea, nausea and vomiting. Genitourinary: Negative for difficulty urinating. Neurological: Negative for dizziness and headaches. ACTIVE PROBLEM LIST Asthma (Hcc) Primary Cardiomyopathy (Hcc) Dysmetabolic Syndrome X Congenital Third Degree Heart Block (Hcc) Constipation Icd (Implantable Cardioverter-Defibrillator) in Place Bipolar Affective Disorder (Hcc) Obesity, Class I, Bmi 30-34.9 Plmd (Periodic Limb Movement Disorder) Adenomyosis Thyroid Nodule Blood in Stool Gastroesophageal Reflux Disease Without Esophagitis Tubular Adenoma of Colon Chronic Gastritis Without Bleeding Severe Mitral Regurgitation S/P Mvr (Mitral Valve Repair) PAST SURGICAL HISTORY Procedure Laterality Date DELIVERY ONLY TIMES THREE DANDC, DIAG AND/OR THERAPEUTIC 02/05/2022 HYSTEROSCOPY ENDOMETRIAL ABLATION 02/05/2022 Marcella ablation ICD GENERATOR CHANGE 07/19/2020 [facility] IMPLANTABLE CARDIOVERTER DEFIBRILLATOR 05/10/2009 defib/pacer- [facility], Dr Hardy LEFT AND RIGHT HEART CATH 11/16/2024 LIG/TRNSXJ FLP TUBE ABDL/VAG APPR UNI/BI PERMANENT PACEMAKER INSERTION 01/09/1992 TRANSESOPHAGEAL ECHOCARDIOGRAM 10/31/2024 VALVULOPLASTY MITRAL VALVE W/CARDIAC BYPASS 01/09/2025 32mm Simuplus Band, Median Sternotomy, Ligation of RABIA, Posterior pericardiotomy Social History Tobacco Use Smoking status: Former Current packs/day: 0.00 Average packs/day: 2.0 packs/day for 15.0 years (30.0 ttl pk-yrs) Types: Cigarettes Start date: 12/08/2002 Quit date: 12/08/2017 Years since quittin.1 Smokeless tobacco: Never Vaping Use Vaping status: Former Start date: 12/08/2017 Quit date: 01/08/2018 Substance Use Topics Alcohol use: Not Currently Drug use: Not Currently Comment: quit pot 2016. Medical Marijuana 2020. Current Outpatient Medications Medication Sig acetaminophen (TYLENOL) 325 mg tablet Take 975 mg by mouth every 6 hours as needed. aspirin, enteric coated (ASPIRIN, ENTERIC COATED) 81 mg EC tablet Take 81 mg by mouth. docusate sodium (COLACE) 100 mg capsule Take 100 mg by mouth as needed. polyethylene glycol 3350 17 gram packet Take 17 g by mouth at bedtime as needed. multivitamin with minerals (VISION/OPTIGEN) tablet Take 1 tablet by mouth once daily. furosemide (LASIX) 20 mg tablet Take 20 mg by mouth once daily. LORazepam (ATIVAN) 0.5 mg Take 0.5 mg by mouth twice daily as needed. metoprolol tartrate, short acting, (LOPRESSOR) 25 mg tablet Take 0.5 tablets by mouth two times a day. No current facility-administered medications for this visit. Objective BP 104/62 (BP Site: Right Arm, BP Position: Sitting, BP Cuff Size: Large Adult) Pulse 72 Temp 36.6 ?C (97.9 ?F) (Temporal) Resp 16 Wt 99.9 kg (220 lb 3.8 oz) LMP 12/29/2021 (Exact Date) BMI 32.06 kg/m? Physical Exam Constitutional: General: Michell is not in acute distress. Appearance: Michell is not ill-appearing. HENT: Nose: No congestion or rhinorrhea. Mouth/Thr (more content not included)... [facility] 01-14-2025 Hospital course Narrative Discharge Diagnosis Mitral regurgitation Issues Requiring Follow-Up Follow up with PCP, cardiology, neuro, optho, and cardiac surgery after discharge Test Results Pending At Discharge Pending Labs Order Current Status Surgical Pathology Exam In process Fungal Culture/Smear Preliminary result Hospital Course Michell Wooten is a 49 y.o. F with a PMHx of anemia, anxiety, depression, asthma, afib, complete heart block s/p ICD pacemaker, dizziness, GERD, PTSD, bipolar schizophrenia, seizure disorder and headaches who presented for MVR with Dr. Armstrong on 01/09. 01/09/2025 OPERATION: by Gordon Armstrong 1. MEDIAN STERNOTOMY 2. MITRAL VALVE REPAIR W/32MM SIMUPLUS BAND 3. LIGATION OF RABIA, 4. 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 Ophthalmology signed off 01/12; follow up with outside eye provider for glasses. - Cardiac rehab referral was placed - PT recs home and low intensity therapy - unable to obtain home care services; provided with outpatient scripts for PT/OT; referred to healthy at home - Anticipate discharge to home with family assistance - Her semiconductor testing group leader recently left the practice; she will follow up with the office to schedule an appointment with a new semiconductor testing group leader - Prescriptions sent to meds to beds Discharged on 01/14/25 On day of discharge, vital signs were stable and no acute distress was noted. All questions were answered. After VS and labs were reviewed it was determined the patient was stable for discharge. Hospital day of discharge management- spent >30 minutes coordinating the discharge and counseling/educating patient and family regarding discharge instructions. HISTORY: Past Medical History as of 01/09/2025 11:15 AM Diagnosis Date Abnormal uterine bleeding 01/02/2025 Abnormal uterine bleeding (AUB) Adenomyosis 12/30/2021 Adverse effect of anesthesia over 10 years ago at [facility] in [place]. Once when I was under general anesthesia, I was woken after and I could not remember how to take a breath or I could not inhale and it terrified me. I had massive anxiety over this for days. I could hear the person saying to breathe but I couldn't. Anemia 2021 From severe uterine bleeding, had dnc and ablation of uterus. Had to have Iron Infusion Anxiety 1994 to Ongoing Severe panic disorder and Axiety Asthma 2004 coughing induced Atrial fibrillation (Multi) Ongoing I do get atrial flutter it is documented from my device clinic at [facility] Atrial tachycardia Bipolar affective (Multi) Blood in stool 08/09/2023 Cardiomyopathy 90's to Mid I am not even sure if I still have this or not but I did when I was in heart failure Cardiomyopathy 01/02/2025 11/29/2017: TTE: LVEF 50%, left ventricle size upper limits of normal. Mild to moderate posterior directly MR. Mild TR and MT. RVSP 21 mmHg. 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 Constipation 02/19/2016 Constipation 01/02/2025 COVID-19 2021 Once Depression 1994 to ongoing Disease due to severe acute respiratory syndrome coronavirus 2 (SARS-CoV-2) 01/02/2025 Disease of thyroid gland 2022 enlarged thyroid and thyroid nodule Dizziness Ongoing I get dizziness sometimes Dysfunctional uterine bleeding 2021 had dnc and ablation for severe bleeding and anemia Dysmetabolic syndrome X 06/12/2005 Easy bruising Ongoing Fibroid 2021 GERD (gastroesophageal reflux disease) 2023 I was diagnosed from endoscopy Gestational diabetes 1994 first child H/O: GI bleed 07/22/2023 Heart failure [id number] Was in Heart Failure until I got the Accounting Intern-d pacer combo Heart failure [id number] Was in Heart Failure until I got the Accounting Intern-d pacer combo Hemorrhoids 01/02/2025 Hiatal hernia 2023 History of anxiety state 01/02/2025 Low back pain, unspecified 03/01/2024 Metabolic disease 2000 Metabolic syndrome X Multiple premature ventricular complexes 01/02/2025 Neuromuscular disorder (Multi) 2021 periodic limb movement disorder Obesity Ongoing Obesity, Class I, BMI 30-34.9 08/21/2020 Pacemaker First Implanted in 1993 I think Current Accounting Intern-d pacer Implanted 07/19/20 First Implanted at 16 now I have a staff accountant-d pace combo Palpitations Ongoing I get these often Palpitations 01/02/2025 Panic disorder 01/02/2025 Personal history of other mental and behavioral disorders since I was 19 to ongoing I have severe panic disorder and ptsd Platelet disorder (Multi) Early I was told I have larger red blood cells. Not sure if this is still correct. PLMD (periodic limb movement disorder) 08/23/2020 Primary cardiomyopathy (Multi) 01/02/2025 Comment on above: 11/29/2017: TTE: LVEF 50%, left ventricle size upper limits of normal. Mild to moderate posterior directly MR. Mild TR and MT. RVSP 21 mmHg. 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 Tubular adenoma of colon 08/20/2023 Vertigo 2020 to ongoing I do get vertigo occasionally, sometimes severe Past Surgical History as of 01/09/2025 11:15 AM Procedure Laterality Date CARDIAC CATHETERIZATION CARDIAC DEFIBRILLATOR PLACEMENT SECTION, LOW TRANSVERSE 1994, , 98 3 children COLONOSCOPY 2023 Through [facility] COLPOSCOPY 2021 [facility] DILATION AND CURETTAGE OF UTERUS 2021 ENDOMETRIAL ABLATION 2021 HYSTEROSCOPY INSERT / REPLACE / REMOVE PACEMAKER 07/19/2020 Wires were implanted in 2008 and 2012 ROLLER PRESSER OPERATOR-d / Pacemaker Implant TUBAL LIGATION 1997 After last child was born in 98 UPPER GASTROINTESTINAL ENDOSCOPY 2023 Through [facility] ALLERGIES: Lisinopril, Naproxen, Adhesive tape-silicones, Antihistamines - ethylenediamine, Diphenhydramine, Morphine, Sertraline, and Topiramate Prescriptions Prior to Admission as of 01/09/2025 11:15 AM Medications Prior to Admission Medication Sig Dispense Refill Last Dose/Taking LORazepam (Ativan) 0.5 mg tablet Take 1 tablet (0.5 mg) by mouth once daily as needed. Past Week Social History as of 01/09/2025 11:15 AM Tobacco Use Smoking status: Former Current packs/day: 0.00 Average packs/day: 2.0 packs/day for 26.0 years (52.0 ttl pk-yrs) Types: Cigarettes Quit date: 05/10/2019 Years since quittin.6 Smokeless tobacco: Never Tobacco comments: I'm not exactly sure when I stopped smoking but it's been over 4 years Substance Use Topics Alcohol use: Not Currently Alcohol/week: 1.0 standard drink of alcohol Types: 1 Shots of liquor per week Comment: in the last 10 years I have not drank more than a couple drinks a year Drug use: Not Currently Types: Marijuana Comment: I have smoke marijuana and was prescribed it but did not continue to use Family History as of 01/09/2025 11:15 AM Problem Relation Name Age of Onset Alcohol abuse Father Curt Rebolledo Sr. 40 - 49 Heart disease Father Curt Rebolledo Sr. 50 - 59 Cancer Mother Caty Asher 40 - 49 Hypertension Mother Caty Asher 40 - 49 Anesthesia problems Mother Caty Asher 40 - 49 Asthma Mother Caty Asher 30 - 39 Motion Sickness Mother Caty Asher 20 - 29 Arthritis Maternal Grandmother Michell Lincoln 60 - 69 Visit Vitals BP 112/78 (BP Location: Left arm, Patient Position: Sitting) Pulse 101 Temp 36.1 C (97 F) (Temporal) Resp 18 Vitals: 01/14/25 0507 Weight: 102 kg (224 lb) Pertinent Physical Exam At Time of Discharge Physical Exam Please see progress note of 01/14/2025 for physical exam Home Medications Medication List START taking these medications acetaminophen 325 mg tablet; Commonly known as: Tylenol; Take 3 tablets (975 mg) by mouth every 6 hours if needed (for pain) for up to 10 days. aspirin 81 mg EC tablet; Take 1 tablet (81 mg) by mouth once daily.; Start taking on: January 15, 2025 docusate sodium 100 mg capsule; Commonly known as: Colace; Take 1 capsule (100 mg) by mouth 2 times a day as needed for constipation. furosemide 20 mg tablet; Commonly known as: Lasix; Take 1 tablet (20 mg) by mouth once daily for 5 days. metoprolol tartrate 25 mg tablet; Commonly known as: Lopressor; Take 0.5 tablets (12.5 mg) by mouth 2 times a day. multivitamin with minerals tablet; Take 1 tablet by mouth once daily.; Start taking on: January 15, 2025 polyethylene glycol 17 gram packet; Commonly known as: Glycolax, Miralax; Take 17 g by mouth once daily as needed (constipation). CONTINUE taking these medications Ativan 0.5 mg tablet; Generic drug: LORazepam STOP taking these medications chlorhexidine 0.12 % solution; Commonly known as: Peridex chlorhexidine 4 % external liquid; Commonly known as: Hibiclens Outpatient Follow-Up No future appointments. SUKHWINDER Dixon documented in this encounter [facility] Work Phone: 01-14-2025 History of Presen t illness Narrative Images from the original note were not included. CARDIAC SURGERY DAILY PROGRESS NOTE Michell Wooten is a 49 y.o. F with a PMHx of anemia, anxiety, depression, asthma, afib, complete heart block s/p ICD pacemaker, dizziness, GERD, PTSD, bipolar schizophrenia, seizure disorder and headaches who presented for MVR with Dr. Armstrong on 01/09. 01/09/2025 OPERATION: by Gordon Armstrong 1. MEDIAN STERNOTOMY 2. MITRAL VALVE REPAIR W/32MM SIMUPLUS BAND 3. LIGATION OF RABIA, 4. POSTERIOR PERICARDIOTOMY CTICU course - uneventful Transferred to the floor 01/10 Interval History: Overnight uneventful SUBJECTIVE: Denies compaints. No migraine symptoms. No shortness of breath. Objective BP 112/78 (BP Location: Left arm, Patient Position: Sitting) Pulse 101 Temp 36.1 C (97 F) (Temporal) Resp 18 Ht 1.753 m (5' 9) Wt 102 kg (224 lb) SpO2 95% BMI 33.08 kg/m 0-10 (Numeric) Pain Score: 5 - Moderate pain 3 Day Weight Change: -0.748 kg (-1 lb 10.4 oz) per day Intake and Output Intake/Output Summary (Last 24 hours) at 01/14/2025 0937 Last data filed at 01/14/2025 0855 Gross per 24 hour Intake 600 ml Output 2650 ml Net -2050 ml Physical Exam Vitals and nursing note reviewed. Constitutional: General: She is not in acute distress. HENT: Head: Normocephalic. Mouth/Throat: Mouth: Mucous membranes are moist. Eyes: Conjunctiva/sclera: Conjunctivae normal. Cardiovascular: Rate and Rhythm: Normal rate and regular rhythm. Pulses: Normal pulses. Heart sounds: Normal heart sounds. Comments: Paced via PPM (ROLLER PRESSER OPERATOR-D) No epicardial wires Trace BLE edema Pulmonary: Effort: Pulmonary effort is normal. No respiratory distress. Breath sounds: Normal breath sounds. Comments: RA Abdominal: General: Bowel sounds are normal. Palpations: Abdomen is soft. Tenderness: There is no abdominal tenderness. Comments: Postop BM 01/13 Genitourinary: Comments: Voiding independently Musculoskeletal: Cervical back: Neck supple. Skin: General: Skin is warm and dry. Comments: midsternal chest incision C/D/I, well approximated, no s/s infection Sternum stable Neurological: General: No focal deficit present. Mental Status: She is alert and oriented to person, place, and time. Psychiatric: Mood and Affect: Mood normal. Behavior: Behavior normal. Behavior is cooperative. Medications Scheduled medications Scheduled Medications[1]Continuous medications Continuous Medications[2]PRN medications PRN Medications[3] Labs Results for orders placed or performed during the hospital encounter of 01/09/25 (from the past 24 hours) Transthoracic Echo (TTE) Limited Result Value Ref Range AV pk rosa 1.40 m/s MV E/A ratio 1.12 LV EF 43 % LVIDd 4.60 cm RVSP 15 mmHg AV pk grad 8 mmHg LV A4C EF 58.1 Magnesium Result Value Ref Range Magnesium 2.12 1.60 - 2.40 mg/dL CBC Result Value Ref Range WBC 7.6 4.4 - 11.3 x10*3/uL nRBC 0.0 0.0 - 0.0 /100 WBCs RBC 3.56 (L) 4.00 - 5.20 x10*6/uL Hemoglobin 10.1 (L) 12.0 - 16.0 g/dL Hematocrit 30.1 (L) 36.0 - 46.0 % MCV 85 80 - 100 fL MCH 28.4 26.0 - 34.0 pg MCHC 33.6 32.0 - 36.0 g/dL RDW 13.4 11.5 - 14.5 % Platelets 152 150 - 450 x10*3/uL Renal Function Panel Result Value Ref Range Glucose 104 (H) 74 - 99 mg/dL Sodium 137 136 - 145 mmol/L Potassium 4.1 3.5 - 5.3 mmol/L Chloride 103 98 - 107 mmol/L Bicarbonate 26 21 - 32 mmol/L Anion Gap 12 10 - 20 mmol/L Urea Nitrogen 12 6 - 23 mg/dL Creatinine 0.74 0.50 - 1.05 mg/dL eGFR >90 >60 mL/min/1.73m*2 Calcium 8.4 (L) 8.6 - 10.6 mg/dL Phosphorus 3.8 2.5 - 4.9 mg/dL Albumin 3.3 (L) 3.4 - 5.0 g/dL IMAGING/ DIAGNOSTIC TESTING: I have personally reviewed the following test result(s): XR chest 2 views 01/12/2025 Impression 1. Small left and trace right pleural effusions with bibasilar atelectasis. No pneumothorax. Signed by: Jose M Mann 01/12/2025 2:01 PM XR chest 1 view 01/11/2025 Impression 1. No sizable pneumothorax status post removal of chest tubes. 2. Bibasilar atelectasis and suggestion of small left pleural effusion. IMPRESSION & PLAN: POD #5 s/p MV repair - Increase activity/ ambulation; PT/OT - Encourage IS, C/DB; respiratory therapy; wean O2 as karena - Cardiac rehab referral - Continue cardiac meds: ASA, BB - Pain and anticonstipation meds - 2v CXR repeated 9/7 am; small to trace pleural effusion on xray (official read pending); no need for US to further evaluate - Postop echo results reviewed; sent to Dr. Armstrong; expected drop in EF with repair of MV - No epicardial wires - Tele until discharge - Optimize nutrition and electrolytes Rhythm: hx ROLLER PRESSER OPERATOR-D, hx afib - Tele: Paced rhythm - Continue BB - Adjust medications as tolerated Acute Blood Loss Anemia Recent Labs 01/14/25 0726 01/13/25 0722 01/12/25 0627 01/11/25 0755 01/10/25 0416 01/09/25 1234 12/25/24 1018 HGB 10.1* 9.5* 9.4* 10.0* 11.6* 11.6* 13.8 HCT 30.1* 28.2* 29.8* 29.8* 36.7 36.1 43.2 - MV, PO Iron x1mo; will not need iron at dc as hematocrit > 30 - Daily labs, transfuse as indicated Thrombocytopenia - improved Recent Labs 01/14/25 0726 01/13/25 0722 01/12/25 0627 01/11/25 0755 01/10/25 0416 01/09/25 1234 12/25/24 1018 PLT 152 121* 84* 90* 130* 109* 177 - Etiology likely postop/CPB related - Continue to trend with daily CBCs Volume/Electrolyte Status: Preop wt Weight: 101 kg (222 lb 10.6 oz) Vitals: 01/14/25 0507 Weight: 102 kg (224 lb) - Weights: 102, 103, 103, 104 - Adjust diuresis as needed for postop cardiac surgery hypervolemia - Replete electrolytes for hypokalemia / hypomagnesemia / hypophosphatemia as needed; K replaced 01/11; 01/12 K Phos replaced; 01/13 K replaced - Daily weights and strict I&Os - Daily RFP while admitted - continue short course of lasix at discharge Anxiety/Depression Bipolar/ schizophrenia/ PTSD - Continue home medications; takes PRN lorazepam - [facility] reviewed on 01/11 Date: 01/03/25, Medication: Lorazepam 0.5 mg tablet, Qty: 15, Days supply: 15, prescribed by Vita Davis - Offer support - Sleep/ wake cycle hygiene - Control pain with PRN meds 01/12/25 Left Eye Peripheral Bluriness in the presence of Migraine History - She has a history of migraines. She describes the typical aura as having a half sigala shaped object with colored lightening in both eyes. She states that normally she takes tylenol and ativan when she experiences the aura and it does take care of them. At approximately 12:40 pm, RN messaged that the patient was having left sided peripheral blurriness. Patient was having difficulty identifying # fingers, persons, and objects. BAT called and when neuro evaluated, the BAT was canceled. Neuro will continue as a general consult and requested that ophthalmology be consulted to r/o a retinal occlusion. Consult placed. - Appreciate neuro and ophthalmology's assistance and recommendations - 01/13 Resolved peripheral bluriness; presents with typical migraine this am yet states that it is much less than yesterday; states that tylenol and ativan helps typically - Neurology signed off 9/6- likely complex migraine; can follow up with outpatient neuro as needed - Ophthalmology signed off 01/12; follow up with outside eye provider for glasses. VTE Prophylaxis: SCDs/TEDs, ambulation, SQ heparin Code Status: Full Code Dispo - PT/OT recs low intensity - Would benefit from homecare RN for cardiac surgery carepath; will refer to healthy at home as unable to obtain homecare services. - Anticipate discharge today after meds to beds delivery - Will continue to assess discharge needs SUKHWINDER Dixon Cardiac Surgery [facility] Team 01/14/2025 9:37 AM [1] acetaminophen, 975 mg, oral, q8h aspirin, 81 mg, oral, Daily furosemide, 20 mg, intravenous, Daily heparin (porcine), 5,000 Units, subcutaneous, q8h iron polysaccharides, 150 mg, oral, Daily metoprolol tartrate, 12.5 mg, oral, BID multivitamin with minerals, 1 tablet, oral, Daily polyethylene glycol, 17 g, oral, Daily sennosides-docusate sodium, 2 tablet, oral, BID sodium chloride, 1,000 mL, intravenous, Once [2] [3] PRN medications: bisacodyl, calcium carbonate, LORazepam, naloxone, ondansetron OR ondansetron, oxygen ADOD today. Still no accepting HC agencies. [facility] sent additional HC referrals to review for acceptance. Will continue to follow. 1320-Still no accepting HC agency. [facility] updated medical team so made aware pt will need outpt therapy scripts. 1438-[facility] met with pt and made aware there is no accepting HC agencies. Pt agreeable with outpt PT/OT-[facility] gave pt outpt PT/OT scripts along with a list of facilities for outpt therapy. All questions answered. Images from the original note were not included. CARDIAC SURGERY DAILY PROGRESS NOTE Michell Wooten is a 49 y.o. F with a PMHx of anemia, anxiety, depression, asthma, afib, complete heart block s/p ICD pacemaker, dizziness, GERD, PTSD, bipolar schizophrenia, seizure disorder and headaches who presented for MVR with Dr. Armstrong on 01/09. 01/09/2025 OPERATION: by Gordon Armstrong 1. MEDIAN STERNOTOMY 2. MITRAL VALVE REPAIR W/32MM SIMUPLUS BAND 3. LIGATION OF RABIA, 4. POSTERIOR PERICARDIOTOMY CTICU course - uneventful Transferred to the floor 01/10 Interval History: Overnight uneventful SUBJECTIVE: At the time of assessment, the patient stated that she was having a migraine. She has a history of migraines. She describes the typical aura as having a half sigala shaped object with colored lightening in both eyes. She states that normally she takes tylenol and ativan when she experiences the aura and it does take care of them. At approximately 12:40 pm, RN messaged that the patient was having left sided peripheral blurriness. Patient was having difficulty identifying # fingers, persons, and objects. BAT called and when neuro evaluated, the BAT was canceled. Neuro will continue as a general consult and requested that ophthalmology be consulted to r/o a retinal occlusion. Consult placed. Objective BP 101/70 Pulse 79 Temp 36.6 C (97.9 F) (Temporal) Resp 17 Ht 1.753 m (5' 9) Wt 103 kg (227 lb 6.4 oz) SpO2 100% BMI 33.58 kg/m 0-10 (Numeric) Pain Score: 3 3 Day Weight Change: Unable to Calculate Intake and Output Intake/Output Summary (Last 24 hours) at 01/13/2025 0909 Last data filed at 01/13/2025 0928 Gross per 24 hour Intake 420 ml Output 3950 ml Net -3530 ml Physical Exam Vitals and nursing note reviewed. Constitutional: General: She is not in acute distress. HENT: Head: Normocephalic. Nose: Nose normal. Mouth/Throat: Mouth: Mucous membranes are moist. Eyes: Conjunctiva/sclera: Conjunctivae normal. Cardiovascular: Rate and Rhythm: Normal rate and regular rhythm. Pulses: Normal pulses. Heart sounds: Normal heart sounds. Comments: Paced via PPM (ROLLER PRESSER OPERATOR-D); primarily ventricularly paced, but intermittently atrially paced Rate 73 bpm, 70-80's No epicardial wires Pulmonary: Effort: Pulmonary effort is normal. No respiratory distress. Breath sounds: Normal breath sounds. Comments: RA IS: 1.5 L Sternum stable Abdominal: General: Bowel sounds are normal. Palpations: Abdomen is soft. Tenderness: There is no abdominal tenderness. Comments: Await postop BM Consuming 30% of meals Rounded contoured abdomen Genitourinary: Comments: Voiding independently Musculoskeletal: Cervical back: Neck supple. Skin: General: Skin is warm and dry. Comments: midsternal chest incision C/D/I, well approximated, no s/s infection Sternum stable Neurological: General: No focal deficit present. Mental Status: She is alert and oriented to person, place, and time. Psychiatric: Mood and Affect: Mood normal. Behavior: Behavior normal. Behavior is cooperative. Medications Scheduled medications Scheduled Medications[1]Continuous medications Continuous Medications[2]PRN medications PRN Medications[3] Labs Results for orders placed or performed during the hospital encounter of 01/09/25 (from the past 24 hours) POCT GLUCOSE Result Value Ref Range POCT Glucose 102 (H) 74 - 99 mg/dL POCT GLUCOSE Result Value Ref Range POCT Glucose 138 (H) 74 - 99 mg/dL POCT GLUCOSE Result Value Ref Range POCT Glucose 125 (H) 74 - 99 mg/dL POCT GLUCOSE Result Value Ref Range POCT Glucose 114 (H) 74 - 99 mg/dL Magnesium Result Value Ref Range Magnesium 2.08 1.60 - 2.40 mg/dL CBC Result Value Ref Range WBC 8.3 4.4 - 11.3 x10*3/uL nRBC 0.0 0.0 - 0.0 /100 WBCs RBC 3.32 (L) 4.00 - 5.20 x10*6/uL Hemoglobin 9.5 (L) 12.0 - 16.0 g/dL Hematocrit 28.2 (L) 36.0 - 46.0 % MCV 85 80 - 100 fL MCH 28.6 26.0 - 34.0 pg MCHC 33.7 32.0 - 36.0 g/dL RDW 13.4 11.5 - 14.5 % Platelets 121 (L) 150 - 450 x10*3/uL Renal Function Panel Result Value Ref Range Glucose 104 (H) 74 - 99 mg/dL Sodium 137 136 - 145 mmol/L Potassium 3.6 3.5 - 5.3 mmol/L Chloride 101 98 - 107 mmol/L Bicarbonate 30 21 - 32 mmol/L Anion Gap 10 10 - 20 mmol/L Urea Nitrogen 12 6 - 23 mg/dL Creatinine 0.62 0.50 - 1.05 mg/dL eGFR >90 >60 mL/min/1.73m*2 Calcium 8.3 (L) 8.6 - 10.6 mg/dL Phosphorus 3.2 2.5 - 4.9 mg/dL Albumin 3.3 (L) 3.4 - 5.0 g/dL IMAGING/ DIAGNOSTIC TESTING: I have personally reviewed the following test result(s): XR chest 2 views 01/12/2025 Impression 1. Small left and trace right pleural effusions with bibasilar atelectasis. No pneumothorax. Signed by: Jose M Mann 01/12/2025 2:01 PM XR chest 1 view 01/11/2025 Impression 1. No sizable pneumothorax status post removal of chest tubes. 2. Bibasilar atelectasis and suggestion of small left pleural effusion. IMPRESSION & PLAN: POD #4 s/p MV repair - Increase activity/ ambulation; PT/OT - Encourage IS, C/DB; respiratory therapy; wean O2 as karena - Cardiac rehab referral - Continue cardiac meds: ASA, BB - Pain and anticonstipation meds - 2v CXR ordered for 01/12 - results reviewed - Postop echo results reviewed; sent to Dr. Armstrong; expected drop in EF with repair of MV; would like US of left chest to evaluate for possible thoracentesis - No epicardial wires prior to discharge - Tele until discharge - Optimize nutrition and electrolytes Rhythm: hx ROLLER PRESSER OPERATOR-D, hx afib - Tele: Paced rhythm; ventricular pacing primarily; with intermittent atrial pacing; rate 73 bpm, 70-80's - Continue BB - Adjust medications as tolerated Acute Blood Loss Anemia Recent Labs 01/13/25 0722 01/12/25 0627 01/11/25 0755 01/10/25 0416 01/09/25 1234 12/25/24 1018 HGB 9.5* 9.4* 10.0* 11.6* 11.6* 13.8 HCT 28.2* 29.8* 29.8* 36.7 36.1 43.2 - MV, PO Iron x1mo - Daily labs, transfuse as indicated Thrombocytopenia Recent Labs 01/13/25 0722 01/12/25 0627 01/11/25 0755 01/10/25 0416 01/09/25 1234 12/25/24 1018 PLT 121* 84* 90* 130* 109* 177 - Etiology likely postop/CPB related - Continue to trend with daily CBCs Volume/Electrolyte Status: Preop wt Weight: 101 kg (222 lb 10.6 oz) Vitals: 01/13/25 0051 Weight: 103 kg (227 lb 6.4 oz) - Weights: 103, 103, 104 - Adjust diuresis as needed for postop cardiac surgery hypervolemia - Replete electrolytes for hypokalemia / hypomagnesemia / hypophosphatemia as needed; K replaced 01/11; 01/12 K Phos replaced; 01/13 K replaced - Daily weights and strict I&Os - Daily RFP while admitted - 01/12 Lasix 40 mg IVP daily Leukocytosis - Resolved Recent Labs 01/13/25 0722 01/12/25 0627 01/11/25 0755 01/10/25 0416 01/09/25 1234 12/25/24 1018 WBC 8.3 11.0 15.9* 21.3* 22.2* 5.3 Temp (36hrs), Av.4 C (97.6 F), Min:36.1 C (97 F), Max:36.8 C (98.2 F) - Aggressive pulmonary hygiene - Monitor for s/s infection - Likely atelectasis/ postoperative in etiology - Daily CBC to follow Anxiety/Depression Bipolar/ schizophrenia/ PTSD - Continue home medications; takes PRN lorazepam - OARRS reviewed on 01/11 Date: 01/03/25, Medication: Lorazepam 0.5 mg tablet, Qty: 15, Days supply: 15, prescribed by Vita Davis - Offer support - Sleep/ wake cycle hygiene - Control pain with PRN meds 01/12/25 Left Eye Peripheral Bluriness in the presence of Migraine History - She has a history of migraines. She describes the typical aura as having a half sigala shaped object with colored lightening in both eyes. She states that normally she takes tylenol and ativan when she experiences the aura and it does take care of them. At approximately 12:40 pm, RN messaged that the patient was having left sided peripheral blurriness. Patient was having difficulty identifying # fingers, persons, and objects. BAT called and when neuro evaluated, the BAT was canceled. Neuro will continue as a general consult and requested that ophthalmology be consulted to r/o a retinal occlusion. Consult placed. - Appreciate neuro and ophthalmology's assistance and recommendations - 01/13 Resolved peripheral bluriness; presents with typical migraine this am yet states that it is much less than yesterday; states that tylenol and ativan helps typically 01/13 Vaginal Spotting: - Patient reports one episode of small vaginal spotting with urination; last menustral period 7 months ago, likely perimenupausal; explained to patient to monitor & alert us to any further issues VTE Prophylaxis: SCDs/TEDs, ambulation, SQ heparin Code Status: Full Code Dispo - PT/OT recs low intensity - Would benefit from homecare RN for cardiac surgery carepath - Anticipate discharge ~1-2 days, pending postop echo, diuresis/ volume status - Will continue to assess discharge needs SUKHWINDER Crandall, AMANDA Cardiac Surgery [facility] Team 01/13/2025 9:47 AM [1] acetaminophen, 975 mg, oral, q8h aspirin, 81 mg, oral, Daily furosemide, 40 mg, intravenous, Daily heparin (porcine), 5,000 Units, subcutaneous, q8h iron polysaccharides, 150 mg, oral, Daily metoprolol tartrate, 12.5 mg, oral, BID multivitamin with minerals, 1 tablet, oral, Daily polyethylene glycol, 17 g, oral, Daily sennosides-docusate sodium, 2 tablet, oral, BID sodium chloride, 1,000 mL, intravenous, Once [2] [3] PRN medications: bisacodyl, calcium carbonate, LORazepam, naloxone, ondansetron OR ondansetron, oxygen 01/12/25 @1443 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 Pt has an order placed for a FWW, ref placed to [facility] by Cande Salter RN TCC via [employer]. Still awaiting an accepting home care agency. [facility], [facility], [facility], [facility] and [facility] have all declined. Called into pt's room to introduce myself, role and to discuss discharge planning, no answer. Called pt's cell phone at [phone] and spoke with pt about discharge planning and home care choices. Pt stated she did not have a particular home care agency that she would like to use and was agreeable to a mass hc referral being sent out via [employer]. Mass Ref sent to 10 more agencies. Will continue to follow. 01/12/25 @1521 addendum [place] approved [facility] delivered to pt's room by Cande Salter RN TCC. Will continue to follow. Images from the original note were not included. CARDIAC SURGERY DAILY PROGRESS NOTE Michell Wooten is a 49 y.o. F with a PMHx of anemia, anxiety, depression, asthma, afib, complete heart block s/p ICD pacemaker, dizziness, GERD, PTSD, bipolar schizophrenia, seizure disorder and headaches who presented for MVR with Dr. Armstrong on 01/09. 01/09/2025 OPERATION: by Gordon Armstrong 1. MEDIAN STERNOTOMY 2. MITRAL VALVE REPAIR W/32MM SIMUPLUS BAND 3. LIGATION OF RABIA, 4. POSTERIOR PERICARDIOTOMY CTICU course - uneventful Transferred to the floor 01/10 Interval History: Overnight uneventful SUBJECTIVE: At the time of assessment, the patient stated that she was having a migraine. She has a history of migraines. She describes the typical aura as having a half sigala shaped object with colored lightening in both eyes. She states that normally she takes tylenol and ativan when she experiences the aura and it does take care of them. At approximately 12:40 pm, RN messaged that the patient was having left sided peripheral blurriness. Patient was having difficulty identifying # fingers, persons, and objects. BAT called and when neuro evaluated, the BAT was canceled. Neuro will continue as a general consult and requested that ophthalmology be consulted to r/o a retinal occlusion. Consult placed. Objective BP 105/73 (BP Location: Right arm, Patient Position: Lying) Pulse 79 Temp 36.1 C (97 F) (Temporal) Resp 18 Ht 1.753 m (5' 9) Wt 103 kg (226 lb 11.2 oz) SpO2 94% BMI 33.48 kg/m 0-10 (Numeric) Pain Score: 5 - Moderate pain 3 Day Weight Change: 1.067 kg (2 lb 5.6 oz) per day Intake and Output Intake/Output Summary (Last 24 hours) at 01/12/2025 1336 Last data filed at 01/12/2025 1000 Gross per 24 hour Intake 600 ml Output 4850 ml Net -4250 ml Physical Exam Vitals and nursing note reviewed. Constitutional: General: She is not in acute distress. HENT: Head: Normocephalic. Nose: Nose normal. Mouth/Throat: Mouth: Mucous membranes are moist. Eyes: Conjunctiva/sclera: Conjunctivae normal. Cardiovascular: Rate and Rhythm: Normal rate and regular rhythm. Pulses: Normal pulses. Heart sounds: Normal heart sounds. Comments: Paced via PPM (ROLLER PRESSER OPERATOR-D); primarily ventricularly paced, but intermittently atrially paced Rate 75 bpm, 70-80's No epicardial wires Pulmonary: Effort: Pulmonary effort is normal. No respiratory distress. Breath sounds: Normal breath sounds. Comments: RA IS: 1.5 L Sternum stable Abdominal: General: Bowel sounds are normal. Palpations: Abdomen is soft. Tenderness: There is no abdominal tenderness. Comments: Await postop BM Consuming 30% of meals Rounded contoured abdomen Genitourinary: Comments: Voiding independently Musculoskeletal: Cervical back: Neck supple. Skin: General: Skin is warm and dry. Comments: midsternal chest incision C/D/I, well approximated, no s/s infection Sternum stable Neurological: General: No focal deficit present. Mental Status: She is alert and oriented to person, place, and time. Psychiatric: Mood and Affect: Mood normal. Behavior: Behavior normal. Behavior is cooperative. Medications Scheduled medications Scheduled Medications[1]Continuous medications Continuous Medications[2]PRN medications PRN Medications[3] Labs Results for orders placed or performed during the hospital encounter of 01/09/25 (from the past 24 hours) POCT GLUCOSE Result Value Ref Range POCT Glucose 109 (H) 74 - 99 mg/dL Magnesium Result Value Ref Range Magnesium 2.05 1.60 - 2.40 mg/dL CBC Result Value Ref Range WBC 11.0 4.4 - 11.3 x10*3/uL nRBC 0.0 0.0 - 0.0 /100 WBCs RBC 3.36 (L) 4.00 - 5.20 x10*6/uL Hemoglobin 9.4 (L) 12.0 - 16.0 g/dL Hematocrit 29.8 (L) 36.0 - 46.0 % MCV 89 80 - 100 fL MCH 28.0 26.0 - 34.0 pg MCHC 31.5 (L) 32.0 - 36.0 g/dL RDW 13.7 11.5 - 14.5 % Platelets 84 (L) 150 - 450 x10*3/uL Renal Function Panel Result Value Ref Range Glucose 101 (H) 74 - 99 mg/dL Sodium 137 136 - 145 mmol/L Potassium 3.9 3.5 - 5.3 mmol/L Chloride 101 98 - 107 mmol/L Bicarbonate 30 21 - 32 mmol/L Anion Gap 10 10 - 20 mmol/L Urea Nitrogen 13 6 - 23 mg/dL Creatinine 0.60 0.50 - 1.05 mg/dL eGFR >90 >60 mL/min/1.73m*2 Calcium 8.4 (L) 8.6 - 10.6 mg/dL Phosphorus 2.3 (L) 2.5 - 4.9 mg/dL Albumin 3.3 (L) 3.4 - 5.0 g/dL POCT GLUCOSE Result Value Ref Range POCT Glucose 106 (H) 74 - 99 mg/dL POCT GLUCOSE Result Value Ref Range POCT Glucose 102 (H) 74 - 99 mg/dL POCT GLUCOSE Result Value Ref Range POCT Glucose 138 (H) 74 - 99 mg/dL IMAGING/ DIAGNOSTIC TESTING: I have personally reviewed the following test result(s): XR chest 2 views 12/25/2024 Impression 1. No evidence of acute cardiopulmonary process. Signed by: Lilly Rodriguez 12/25/2024 2:51 PM XR chest 1 view 01/11/2025 Impression 1. No sizable pneumothorax status post removal of chest tubes. 2. Bibasilar atelectasis and suggestion of small left pleural effusion. 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-D, hx afib - Tele: Paced rhythm; ventricular pacing primarily; with intermittent atrial pacing; rate 75 bpm, 70-80's - Continue BB - Adjust medications as tolerated Acute Blood Loss Anemia Recent Labs 01/12/25 0601/11/2575401/10/25 0416 01/09/25 1234 12/25/24 1018 HGB 9.4* 10.0* 11.6* 11.6* 13.8 HCT 29.8* 29.8* 36.7 36.1 43.2 - MV, PO Iron x1mo - Daily labs, transfuse as indicated Thrombocytopenia Recent Labs 01/12/25 0601/11/25 0755 01/10/25 0416 01/09/25 1234 12/25/24 1018 PLT 84* 90* 130* 109* 177 - Etiology likely postop/CPB related - Continue to trend with daily CBCs Volume/Electrolyte Status: Preop wt Weight: 101 kg (222 lb 10.6 oz) Vitals: 01/12/25 1152 Weight: 103 kg (226 lb 11.2 oz) - Weights: 103, 104 - Adjust diuresis as needed for postop cardiac surgery hypervolemia - Replete electrolytes for hypokalemia / hypomagnesemia / hypophosphatemia as needed; K replaced 01/11; 01/12 K Phos replaced - Daily weights and strict I&Os - Daily RFP while admitted - 01/12 Lasix 40 mg daily Leukocytosis - down-trending Recent Labs 01/12/25 0627 01/11/25 0755 01/10/25 0416 01/09/25 1234 12/25/24 1018 WBC 11.0 15.9* 21.3* 22.2* 5.3 Temp (36hrs), Av.4 C (97.5 F), Min:36.1 C (97 F), Max:36.8 C (98.2 F) - Aggressive pulmonary hygiene - Monitor for s/s infection - Likely atelectasis/ postoperative in etiology - Daily CBC to follow Anxiety/Depression Bipolar/ schizophrenia/ PTSD - Continue home medications; takes PRN lorazepam - OARRS reviewed on 01/11 Date: 01/03/25, Medication: Lorazepam 0.5 mg tablet, Qty: 15, Days supply: 15, prescribed by Vita Davis - Offer support - Sleep/ wake cycle hygiene - Control pain with PRN meds 01/12/25 Left Eye Peripheral Bluriness in the presence of Migraine History - She has a history of migraines. She describes the typical aura as having a half sigala shaped object with colored lightening in both eyes. She states that normally she takes tylenol and ativan when she experiences the aura and it does take care of them. At approximately 12:40 pm, RN messaged that the patient was having left sided peripheral blurriness. Patient was having difficulty identifying # fingers, persons, and objects. BAT called and when neuro evaluated, the BAT was canceled. Neuro will continue as a general consult and requested that ophthalmology be consulted to r/o a retinal occlusion. Consult placed. - Await recommendations VTE Prophylaxis: SCDs/TEDs, ambulation, SQ heparin Code Status: Full Code Dispo - PT/OT recs low intensity - Would benefit from homecare RN for cardiac surgery carepath - Anticipate discharge ~2 days, pending 2v, postop echo, diuresis/ volume status - Will continue to assess discharge needs SUKHWINDER Crandall, AMANDA Cardiac Surgery [facility] Team 01/12/2025 1:36 PM [1] acetaminophen, 975 mg, oral, q8h aspirin, 81 mg, oral, Daily [START ON 01/13/2025] furosemide, 40 mg, intravenous, Daily heparin (porcine), 5,000 Units, subcutaneous, q8h insulin lispro, 0-5 Units, subcutaneous, TID AC iron polysaccharides, 150 mg, oral, Daily methocarbamol, 500 mg, oral, q6h metoprolol tartrate, 12.5 mg, oral, BID multivitamin with minerals, 1 tablet, oral, Daily polyethylene glycol, 17 g, oral, Daily potassium, sodium phosphates, 1 packet, oral, 4x daily sennosides-docusate sodium, 2 tablet, oral, BID [2] [3] PRN medications: bisacodyl, calcium carbonate, LORazepam, naloxone, ondansetron OR ondansetron, oxyCODONE, oxyCODONE, oxygen 01/11/25 1613 Discharge Planning Living Arrangements Spouse/significant other Support Systems Spouse/significant other Type of Residence Private residence Number of Stairs to Enter Residence 2 Number of Stairs Within Residence 15 Type of Animals or Pets cat and dog Home or Post Acute Services In home services Expected Discharge Disposition Home Healt Financial Resource Strain How hard is it for you to pay for the very basics like food, housing, medical care, and heating? Not very Housing Stability In the last 12 months, was there a time when you were not able to pay the mortgage or rent on time? N In the past 12 months, how many times have you moved where you were living? 0 Care Transitions Progress Note: TCC met with patient to assess home going needs and cofirm demographics Care Transitions Progress Note: Plan per medical team: s/p MVR; PT:OT Team Members Present: SPECIALTY SALES REPRESENTATIVE: MD: HECTOR: SW Status: inpatient Payor:[employer] Barriers:none Adod: 01/13 Care Transitions Progress Note: Per medical team patient s/p Mitral Valve repair Dispo: PT/OT recs low intensity - Would benefit from homecare RN for cardiac surgery carepath,. TCC to provide list of home care agencies to choose from. Occupational Therapy Evaluation Patient Name: Michell Ponce Today's Date: 01/11/2025 Room: [address] [place] [address] Time Calculation Start Time: 1409 Stop Time: 1422 Time Calculation (min): 13 min Assessment IP OT Assessment Prognosis: Good Barriers to Discharge Home: No anticipated barriers Evaluation/Treatment Tolerance: Patient tolerated treatment well End of Session Communication: Bedside nurse End of Session Patient Position: Up in chair, Alarm off, not on at start of session Plan: Inpatient Plan No Skilled OT: No acute OT goals identified OT Frequency for Current Admission: OT eval only OT Recommended Transfer Status: Stand by assist OT - OK to Discharge: Yes OT Assessment Prognosis: Good Evaluation/Treatment Tolerance: Patient tolerated treatment well Subjective General: Reason for Referral: S/p MVR Past Medical History Relevant to Rehab: Anemia, anxiety, depression, asthma, afib, complete heart block s/p ICD pacemaker, dizziness, GERD, PTSD, bipolar schizophrenia, seizure disorder and headaches Prior to Session Communication: Bedside nurse Patient Position Received: Bed, 2 rail up, Alarm off, not on at start of session General Comment: Pt seated EOB, motivated to participate in OT Precautions: Medical Precautions: Cardiac precautions, Fall precautions, Seizure precautions Post-Surgical Precautions: Move in the Tube Pain: Pain Assessment Pain Assessment: 0-10 Pain Type: Surgical pain Pain Location: Generalized Pain Interventions: Repositioned Lines/Tubes/Drains: Objective Cognition: Overall Cognitive Status: Within Functional Limits Orientation Level: Oriented X4 Home Living: Type of Home: House Lives With: Significant other Home Adaptive Equipment: None Home Layout: Two level, Bed/bath upstairs Bathroom Shower/Tub: Tub/shower unit Bathroom Equipment: None Prior Function: Level of [place]: Independent with ADLs and functional transfers, Independent with homemaking with ambulation ADL Assistance: Independent Homemaking Assistance: Independent Ambulatory Assistance: Independent Vocational: On disability Prior Function Comments: Pt reports she manages cooking and cleaning, drives, had one recent fall d/t tripping over a chair ADL: Eating Assistance: Independent Grooming Assistance: Independent Grooming Deficit: Setup Bathing Assistance: Stand by Bathing Deficit: Setup UE Dressing Assistance: Stand by UE Dressing Deficit: Setup LE Dressing Assistance: Stand by LE Dressing Deficit: Setup Toileting Assistance with Device: Independent Activity Tolerance: Endurance: Decreased tolerance for upright activites Bed Mobility/Transfers: Functional Mobility Functional Mobility Performed: Yes Functional Mobility 1 Surface 1: Level tile Device 1: Rolling walker Assistance 1: Close supervision Comments 1: in room and hallway, > [place] distance and Transfers Transfer: Yes Transfer 1 Transfer From 1: Sit to Transfer to 1: Stand Technique 1: Sit to stand Transfer Device 1: Walker Transfer Level of Assistance 1: Close supervision Vision: Vision - Basic Assessment Current Vision: No visual deficits and Coordination: Movements are Fluid and Coordinated: Yes Hand Function: Hand Function Gross Grasp: Functional Coordination: Functional Extremities: RUE RUE : Within Functional Limits, LUE LUE: Within Functional Limits, RLE RLE : Within Functional Limits, and LLE LLE : Within Functional Limits Outcome Measures: [facility] Daily Activity Putting on and taking off regular lower body clothing: None Bathing (including washing, rinsing, drying): A little Putting on and taking off regular upper body clothing: None Toileting, which includes using toilet, bedpan or urinal: None Taking care of personal grooming such as brushing teeth: None Eating Meals: None Daily Activity - Total Score: 23 , OT Adult Other Outcome Measures 4AT: negative Education Documentation Body Mechanics, taught by Tran Robison OT at 01/11/2025 3:33 PM. Learner: Patient Readiness: Acceptance Method: Explanation Response: Verbalizes Understanding Precautions, taught by Tran Robison OT at 01/11/2025 3:33 PM. Learner: Patient Readiness: Acceptance Method: Explanation Response: Verbalizes Understanding ADL Training, taught by Tran Robison OT at 01/11/2025 3:33 PM. Learner: Patient Readiness: Acceptance Method: Explanation Response: Verbalizes Understanding Education Comments No comments found. 01/11/25 at 3:34 PM Tran Robison OT Rehab Office: [phone] Images from the original note were not included. CARDIAC SURGERY DAILY PROGRESS NOTE Michell Wooten is a 49 y.o. F with a PMHx of anemia, anxiety, depression, asthma, afib, complete heart block s/p ICD pacemaker, dizziness, GERD, PTSD, bipolar schizophrenia, seizure disorder and headaches who presented for MVR with Dr. Armstrong on 01/09. 01/09/2025 OPERATION: by Gordon Armstrong 1. MEDIAN STERNOTOMY 2. MITRAL VALVE REPAIR W/32MM SIMUPLUS BAND 3. LIGATION OF RABIA, 4. POSTERIOR PERICARDIOTOMY CTICU course - uneventful Transferred to the floor 01/10 Interval History: Overnight uneventful SUBJECTIVE: Denies complaints Objective BP 108/71 (BP Location: Right arm, Patient Position: Lying) Pulse 81 Temp 36.3 C (97.3 F) (Temporal) Resp 18 Ht 1.753 m (5' 9) Wt 104 kg (230 lb) SpO2 94% BMI 33.97 kg/m 0-10 (Numeric) Pain Score: 4 3 Day Weight Change: Unable to Calculate Intake and Output Intake/Output Summary (Last 24 hours) at 01/11/2025 1434 Last data filed at 01/11/2025 1412 Gross per 24 hour Intake 360 ml Output 4250 ml Net -3890 ml Physical Exam Physical Exam Vitals and nursing note reviewed. Constitutional: General: She is not in acute distress. HENT: Head: Normocephalic. Mouth/Throat: Mouth: Mucous membranes are moist. Eyes: Conjunctiva/sclera: Conjunctivae normal. Cardiovascular: Rate and Rhythm: Normal rate and regular rhythm. Pulses: Normal pulses. Heart sounds: Normal heart sounds. 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 No respiratory distress. Breath sounds: Normal breath sounds. Comments: Diminished Abdominal: General: Bowel sounds are normal. Palpations: Abdomen is soft. Tenderness: There is no abdominal tenderness. Comments: Await postop BM Genitourinary: Comments: Voiding independently Musculoskeletal: Cervical back: Neck supple. Right lower le+ Edema present. Left lower le+ Edema present. Skin: General: Skin is warm and dry. Comments: midsternal chest incision C/D/I, well approximated, no s/s infection Sternum stable Neurological: General: No focal deficit present. Mental Status: She is alert and oriented to person, place, and time. Psychiatric: Mood and Affect: Mood normal. Behavior: Behavior normal. Behavior is cooperative. Medications Scheduled medications Scheduled Medications[1]Continuous medications Continuous Medications[2]PRN medications PRN Medications[3] Labs Results for orders placed or performed during the hospital encounter of 01/09/25 (from the past 24 hours) POCT GLUCOSE Result Value Ref Range POCT Glucose 130 (H) 74 - 99 mg/dL Magnesium Result Value Ref Range Magnesium 1.94 1.60 - 2.40 mg/dL CBC Result Value Ref Range WBC 15.9 (H) 4.4 - 11.3 x10*3/uL nRBC 0.0 0.0 - 0.0 /100 WBCs RBC 3.56 (L) 4.00 - 5.20 x10*6/uL Hemoglobin 10.0 (L) 12.0 - 16.0 g/dL Hematocrit 29.8 (L) 36.0 - 46.0 % MCV 84 80 - 100 fL MCH 28.1 26.0 - 34.0 pg MCHC 33.6 32.0 - 36.0 g/dL RDW 13.2 11.5 - 14.5 % Platelets 90 (L) 150 - 450 x10*3/uL Renal Function Panel Result Value Ref Range Glucose 152 (H) 74 - 99 mg/dL Sodium 135 (L) 136 - 145 mmol/L Potassium 3.9 3.5 - 5.3 mmol/L Chloride 101 98 - 107 mmol/L Bicarbonate 28 21 - 32 mmol/L Anion Gap 10 10 - 20 mmol/L Urea Nitrogen 10 6 - 23 mg/dL Creatinine 0.68 0.50 - 1.05 mg/dL eGFR >90 >60 mL/min/1.73m*2 Calcium 8.7 8.6 - 10.6 mg/dL Phosphorus 2.2 (L) 2.5 - 4.9 mg/dL Albumin 3.5 3.4 - 5.0 g/dL POCT GLUCOSE Result Value Ref Range POCT Glucose 157 (H) 74 - 99 mg/dL POCT GLUCOSE Result Value Ref Range POCT Glucose 154 (H) 74 - 99 mg/dL IMAGING/ DIAGNOSTIC TESTING: I have personally reviewed the following test result(s): XR chest 1 view 01/11/2025 Impression 1. No sizable pneumothorax status post removal of chest tubes. 2. Bibasilar atelectasis and suggestion of small left pleural effusion. 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, hx afib - Tele: Paced rhythm - Continue BB - Adjust medications as tolerated Acute Blood Loss Anemia Recent Labs 01/11/2575401/10/256 01/09/25 1234 12/25/24 1018 HGB 10.0* 11.6* 11.6* 13.8 HCT 29.8* 36.7 36.1 43.2 - MV, PO Iron x1mo - Daily labs, transfuse as indicated Thrombocytopenia Recent Labs 01/11/2575401/10/256 01/09/25 1234 12/25/24 1018 PLT 90* 130* 109* 177 - Etiology likely postop/CPB related - Continue to trend with daily CBCs Volume/Electrolyte Status: Preop wt Weight: 101 kg (222 lb 10.6 oz) Vitals: 01/11/25 0309 Weight: 104 kg (230 lb) - Weights: 104 - Adjust diuresis as needed for postop cardiac surgery hypervolemia - Replete electrolytes for hypokalemia/hypomagnesemia/hypo phosphatemia as needed; K replaced 01/11 - Daily weights and strict I&Os - Daily RFP while admitted Leukocytosis - down-trending Recent Labs 01/11/2575401/10/256 01/09/25 1234 12/25/24 1018 WBC 15.9* 21.3* 22.2* 5.3 Temp (36hrs), Av.7 C (98.1 F), Min:36.3 C (97.3 F), Max:37.2 C (99 F) - aggressive pulmonary hygiene - monitor for s/s infection - likely atelectasis/ postoperative in etiology - daily CBC to follow Anxiety/Depression Bipolar/ schizophrenia/ PTSD -continue home medications; takes PRN lorazepam - OARRS reviewed on 01/11 Date: 01/03/25, Medication: Lorazepam 0.5 mg tablet, Qty: 15, Days supply: 15, prescribed by Vita Davis -offer support -sleep/ wake cycle hygiene -control pain with PRN meds VTE Prophylaxis: SCDs/TEDs, ambulation, SQ heparin Code Status: Full Code Dispo - PT/OT recs low intensity - Would benefit from homecare RN for cardiac surgery carepath - Anticipate discharge ~2 days, pending 2v, postop echo, diuresis/ volume status - Will continue to assess discharge needs SUKHWINDER [facility] Team 01/11/2025 2:34 PM [1] acetaminophen, 975 mg, oral, q8h aspirin, 81 mg, oral, Daily furosemide, 20 mg, intravenous, Daily heparin (porcine), 5,000 Units, subcutaneous, q8h insulin lispro, 0-5 Units, subcutaneous, TID AC iron polysaccharides, 150 mg, oral, Daily methocarbamol, 500 mg, oral, q6h metoprolol tartrate, 12.5 mg, oral, BID multivitamin with minerals, 1 tablet, oral, Daily polyethylene glycol, 17 g, oral, Daily potassium chloride CR, 20 mEq, oral, Once sennosides-docusate sodium, 2 tablet, oral, BID [2] [3] PRN medications: bisacodyl, calcium carbonate, HYDROmorphone, LORazepam, naloxone, ondansetron OR ondansetron, oxyCODONE, oxyCODONE, oxygen Physical Therapy Physical Therapy Evaluation Patient Name: Michell Ponce Department: [facility] 3 Room: [address] [place] [address]- Today's Date: 01/10/2025 Time Calculation Start Time: 915 Stop Time: 938 Time Calculation (min): 23 min Assessment/Plan PT Assessment PT Assessment Results: Decreased strength, Decreased endurance, Impaired balance, Decreased mobility Rehab Prognosis: Good Barriers to Discharge Home: No anticipated barriers Evaluation/Treatment Tolerance: Patient tolerated treatment well, Patient limited by fatigue Medical Staff Made Aware: Yes End of Session Communication: Bedside nurse Assessment Comment: Pt demonstrated the ability to perform bed mobility supine to seated EOB, sit <> stand transfer with FWW, and ambulation ~100ft with FWW. Pt required CGA throughout entire session. Pt reported slight dizziness and fatigue during ambulation despite stable vitals. No instability. End of Session Patient Position: Up in chair, Alarm off, not on at start of session (WC) IP OR SWING BED PT PLAN Inpatient or Swing Bed: Inpatient PT Plan Treatment/Interventions: Bed mobility, Transfer training, Gait training, Stair training, Balance training, Strengthening, Endurance training, Therapeutic exercise, Therapeutic activity PT Plan: Ongoing PT PT Frequency for Current Admission: 2 times per week during this acute inpatient hospitalization PT Discharge Recommendations: Low intensity level of continued care PT Recommended Transfer Status: Contact guard PT - OK to Discharge: Yes Subjective PT Visit Info: PT Received On: 01/10/25 General Visit Information: General Reason for Referral: S/p MVR Referred By: Dr. Armstrong on 01/09. Past Medical History Relevant to Rehab: Anemia, anxiety, depression, asthma, afib, complete heart block s/p ICD pacemaker, dizziness, GERD, PTSD, bipolar schizophrenia, seizure disorder and headaches Family/Caregiver Present: No Prior to Session Communication: Bedside nurse Patient Position Received: Bed, 3 rail up, Alarm off, not on at start of session Preferred Learning Style: auditory, verbal, visual, written General Comment: Pt awake, alert, and willing to participate in PT session. Home Living: Home Living Type of Home: House Lives With: Significant other Home Adaptive Equipment: None Home Layout: Two level, Bed/bath upstairs Home Access: (2-3 NICANOR) Bathroom Shower/Tub: Tub/shower unit Bathroom Equipment: None Prior Level of Function: Prior Function Per Pt/Caregiver Report Level of [place]: Independent with ADLs and functional transfers, Independent with homemaking with ambulation ADL Assistance: Independent Homemaking Assistance: Independent Ambulatory Assistance: Independent Vocational: On disability Prior Function Comments: (+) drives; (+) falls - tripped on chair 3 weeks ago; no injuries or hospitalization Precautions: Precautions Hearing/Visual Limitations: (+) glasses Medical Precautions: Cardiac precautions, Fall precautions, Seizure precautions Post-Surgical Precautions: Move in the Tube Precautions Comment: SBP < 140; MAP > 65; PPP DDD 60-140 per EMR 01/10/25 0916 01/10/25 0939 Vital Signs Vitals Session Pre PT Post PT Heart Rate 75 81 Resp 18 -- SpO2 96 % 99 % BP 108/69 112/63 MAP (mmHg) 82 80 BP Method Automatic Automatic Patient Position Lying Sitting Vital Signs Comment -- 108/66 (79) after sit<>stand with short ambulation ~6ft to toilet Objective Pain: Pain Assessment Pain Assessment: 0-10 0-10 (Numeric) Pain Score: 6 Pain Type: Surgical pain Pain Location: Chest Cognition: Cognition Overall Cognitive Status: Within Functional Limits Orientation Level: Oriented X4 General Assessments: General Observation General Observation: Ext pacer, tele, IVs (1x10 reps of incentive spirometer: </=1000) Activity Tolerance Endurance: Tolerates 10 - 20 min exercise with multiple rests Early Mobility/Exercise Safety Screen: Proceed with mobilization - No exclusion criteria met Activity Tolerance Comments: PT session limited d/t fatigue and dizziness despite stable vitals throughout mobilization Sensation Light Touch: No apparent deficits (Post op) Strength Strength Comments: Pt demonstrated BLEs strength at least 3/5 through functional mobility Coordination Movements are Fluid and Coordinated: Yes Postural Control Postural Control: Within Functional Limits Static Sitting Balance Static Sitting-Balance Support: No upper extremity supported, Feet supported Static Sitting-Level of Assistance: Contact guard Static Sitting-Comment/Number of Minutes: ~3min Static Standing Balance Static Standing-Balance Support: Bilateral upper extremity supported Static Standing-Level of Assistance: Contact guard Static Standing-Comment/Number of Minutes: Cues needed for hand placement and proper use of AD. Vitals stable. Functional Assessments: ADL ADL's Addressed: No Bed Mobility Bed Mobility: Yes Bed Mobility 1 Bed Mobility 1: Supine to sitting Level of Assistance 1: Contact guard Bed Mobility Comments 1: Cues needed for hand placement and sequencing Transfers Transfer: Yes Transfer 1 Transfer From 1: Sit to Transfer to 1: Stand Technique 1: Sit to stand Transfer Device 1: Walker Transfer Level of Assistance 1: Contact guard Trials/Comments 1: No instability / symptoms. Vitals stable. Transfers 2 Transfer From 2: Stand to, Toilet to Transfer to 2: Toilet, Stand Technique 2: Stand to sit, Sit to stand Transfer Device 2: Walker Transfer Level of Assistance 2: Contact guard Trials/Comments 2: Slight lightheadedness despite stable vitals; close supervision during toilet hygeine Transfers 3 Transfer From 3: Sit to Transfer to 3: Wheelchair Technique 3: Stand to sit Transfer Device 3: Walker Transfer Level of Assistance 3: Contact guard Trials/Comments 3: Cues needed for hand placement Ambulation/Gait Training Ambulation/Gait Training Performed: Yes Ambulation/Gait Training 1 Surface 1: Level tile Device 1: Rolling walker Assistance 1: Contact guard Quality of Gait 1: Decreased step length (Diminished gait speed) Comments/Distance (ft) 1: ~100ft; Slight dizziness and limited d/t fatigue despite stable vitals, x1 standing rest break Ambulation/Gait Training 2 Surface 2: Level tile Device 2: Rolling walker Assistance 2: Contact guard Comments/Distance (ft) 2: ~6 ft bed>toilet Stairs Stairs: No Extremity/Trunk Assessments: RLE RLE : Within Functional Limits LLE LLE : Within Functional Limits Outcome Measures: [facility] Basic Mobility Turning from your back to your side while in a flat bed without using bedrails: A little Moving from lying on your back to sitting on the side of a flat bed without using bedrails: A little Moving to and from bed to chair (including a wheelchair): A little Standing up from a chair using your arms (e.g. wheelchair or bedside chair): A little To walk in hospital room: A little Climbing 3-5 steps with railing: A lot Basic Mobility - Total Score: 17 FSS-ICU Ambulation: Walks >/ or equal to 50 feet with any assistance x1 Rolling: Supervision or set-up only Sitting: Supervision or set-up only Transfer [id number]: Supervision or set-up only Transfer [id number]: Supervision or set-up only Total Score: 22 Early Mobility/Exercise Safety Screen: Proceed with mobilization - No exclusion criteria met ICU Mobility Scale: Walking with assistance of 1 person [8] Encounter Problems Encounter Problems (Active) Balance Pt will demonstrate improved static/dynamic standing balance without use of assistive device and no instability while utilizing close supervision assistance to progress towards balance demands necessary for safe discharge. (Progressing) Start: 01/10/25 Expected End: 01/24/25 Mobility Pt will ambulate 200 ft without use of assistive device and close supervision assistance on level surface to progress towards safe and functional mobility discharge recommendations. (Progressing) Start: 01/10/25 Expected End: 01/24/25 Pt will navigate 5 steps without use of assistive device and no instability utilizing close supervision assistance to progress towards safe functional mobility. (Progressing) Start: 01/10/25 Expected End: 01/24/25 PT Transfers Pt will perform 10 sit<>stand transfers with controlled strength and coordination with use of assistive device and close supervision assistance to progress towards increasing functional demands for discharge. (Progressing) Start: 01/10/25 Expected End: 01/24/25 Education Documentation Handouts, taught by JAMIE Grajeda at 01/10/2025 12:14 PM. Learner: Patient Readiness: Acceptance Method: Explanation, Demonstration, Handout Response: Verbalizes Understanding, Demonstrated Understanding Comment: MITT Precautions, taught by JAMIE Grajeda at 01/10/2025 12:14 PM. Learner: Patient Readiness: Acceptance Method: Explanation, Demonstration, Handout Response: Verbalizes Understanding, Demonstrated Understanding Comment: MITT Body Mechanics, taught by JAMIE Grajeda at 01/10/2025 12:14 PM. Learner: Patient Readiness: Acceptance Method: Explanation, Demonstration, Handout Response: Verbalizes Understanding, Demonstrated Understanding Comment: MITT Mobility Training, taught by JAMIE Grajeda at 01/10/2025 12:14 PM. Learner: Patient Readiness: Acceptance Method: Explanation, Demonstration, Handout Response: Verbalizes Understanding, Demonstrated Understanding Comment: MITT Education Comments No comments found. Cosigned by Carey Jose PT at 01/10/2025 3:50 PM EDT Michell Ponce is a 49 y.o. female on day 1 of admission presenting with Mitral regurgitation. I have seen the patient either independently or with an associated resident physician or advanced practice provider Overnight Events: Pt with anxiety, pain overnight. Restarted patients home lorazepam Neuro: Hx of bipolar, schizophrenia, anxiety/depression. Anxiety and Pain overnight. Oxy/Dilaudid/APAP, Robaxin for pain. Restart home lorazepam. Pt has been out of bed to chair Cardiac: s/p MVR. Pt being paced with intrinsic device, though is HDS. Normal BiV function. Start ASA, start Metop 12.5 mg given hx of afib Pacer: Internal pacer: DDD 60-140, AICD on Pulmonary: On room air. CXR appears ok. ChT meet criteria and will eb removed today. IS encouraged Gastrointestinal: Will start PPI for subjectiv heartburn this AM. Cardiac diet. Continue bowel regimen Renal: Creatinine stable, RFP reassuring, making good urine Endocrine: SSI Hematology: H/H stable. Starting SQH today Infectious Disease: Afebrile, periop cefazolin Musculoskeletal: No issues Lines/Tubes/Drains: Dc lines, brady, chest drains Mechanical Circulatory Support: None Prophylaxis: SCDs, PPI, SQH Med to Discontinue: None Disposition: Floor ABCDEF Checklist Analgesia: Spontaneous awakening trial to be pursued if clinically appropriate. RASS goal reviewed Breathing: Spontaneous breathing trial to be pursued if clinically appropriate. Mechanical power of assisted ventilation reviewed Choice of analgesia/sedation: Analgesic and sedative agents adjusted per clinical context. Delirium assessed by CAM, will avoid exacerbating factors Early mobility and exercise: Physical and occupational therapy engaged Family: Plan of care, overall trajectory of patient shared with family. Questions elicited and answered as appropriate. Due to the high probability of life threatening clinical decompensation, the patient required critical care time evaluating and managing this patient. Critical care time included obtaining a history, examining the patient, ordering and reviewing studies, discussing, developing, and implementing a management plan, evaluating the patient's response to treatment, and discussion with other care team providers. I saw and evaluated the patient myself. Critical care time was performed exclusive of billable procedures. Critical care time: 39 Jones Brunson MD CTICU Progress Note Michell Wooten/[id number] Admit Date: 01/09/2025 Hospital Length of Stay: 1 ICU Length of Stay: 18h CT SURGEON: SUBJECTIVE: NAEON. LERNER to chair this AM. MEDICATIONS Infusions: lactated Ringer's, Last Rate: 5 mL/hr (01/10/25 0400) Scheduled: acetaminophen, 975 mg, q6h aspirin, 81 mg, Daily ceFAZolin, 2 g, q8h heparin (porcine), 5,000 Units, q8h insulin lispro, 0-15 Units, TID AC methocarbamol, 1,000 mg, q6h metoprolol tartrate, 12.5 mg, BID pantoprazole, 40 mg, Daily before breakfast polyethylene glycol, 17 g, Daily sennosides-docusate sodium, 2 tablet, BID sodium chloride 0.9%, 10 mL, q8h RASHEL PRN: calcium gluconate, 1 g, q6h PRN calcium gluconate, 2 g, q6h PRN dextrose, 25 g, q15 min PRN Or glucagon, 1 mg, q15 min PRN HYDROmorphone, 0.2 mg, q2h PRN LORazepam, 0.5 mg, Nightly PRN magnesium sulfate, 2 g, q6h PRN magnesium sulfate, 4 g, q6h PRN naloxone, 0.2 mg, q5 min PRN ondansetron, 4 mg, q8h PRN Or ondansetron, 4 mg, q8h PRN oxyCODONE, 10 mg, q4h PRN oxyCODONE, 5 mg, q4h PRN oxygen, 1 Dose, Continuous - O2/gases potassium chloride, 20 mEq, q6h PRN potassium chloride, 40 mEq, q6h PRN sodium chloride 0.9%, 10 mL, PRN sodium chloride 0.9%, 10 mL, PRN PHYSICAL EXAM: Visit Vitals BP 102/73 (BP Location: Left arm, Patient Position: Lying) Pulse 73 Temp 37.1 C (98.8 F) (Temporal) Resp 18 Ht 1.753 m (5' 9) Wt 101 kg (222 lb 10.6 oz) SpO2 98% BMI 32.88 kg/m Smoking Status Former BSA 2.22 m Wt Readings from Last 5 Encounters: 01/09/25 101 kg (222 lb 10.6 oz) 01/05/25 101 kg (223 lb 6.4 oz) 12/25/24 102 kg (224 lb 8 oz) INTAKE/OUTPUT: I/O last 3 completed shifts: In: 5328.7 (52.8 mL/kg) [I.V.:83.7 (0.8 mL/kg); Blood:1480; IV Piggyback:3150] Out: 1330 (13.2 mL/kg) [Urine:820 (0.2 mL/kg/hr); Blood:250; Chest Tube:260] Weight: 101 kg Vent settings: Vent Mode: Pressure support FiO2 (%): [40 %-50 %] 40 % S RR: [16] 16 S VT: [530 mL] 530 mL PEEP/CPAP (cm H2O): [5 cm H20-8 cm H20] 5 cm H20 MT SUP: [5 cm H20] 5 cm H20 MAP (cm H2O): [12] 12 Physical Exam: - CONSTITUTION: well-appearing, NAD - NEUROLOGIC: A&Ox4, PERLL, no focal neurologic deficit - CARDIOVASCULAR: Paced rhythm, rate 70s - RESPIRATORY: B/l breath sounds CTAB, chest tubes with serosanguinous output - GI: soft, non-distended - : brady draining clear yellow urine - EXTREMITIES: no edema - SKIN: warm and dry - PSYCHIATRIC: normal mood and affect Daily Risk Screen Central line: remove today Brady: remove today Images: Invasive Hemodynamics: Most Recent Range Past 24hrs BP (Art) 122/73 Arterial Line BP 1 Min: 87/75 Max: 128/90 MAP(Art) 90 mmHg Arterial Line MAP 1 (mmHg) Min: 81 mmHg Max: 106 mmHg RA/CVP No data recorded PA No data recorded PA(mean) No data recorded CO No data recorded CI No data recorded Mixed Venous No data recorded SVR No data recorded Assessment/Plan Assessment: Michell Wooten is a 49 y.o. F with a PMHx of anemia, anxiety, depression, asthma, afib, complete heart block s/p ICD pacemaker, dizziness, GERD, PTSD, bipolar schizophrenia, seizure disorder and headaches who presents to CTICU s/p MVR with Dr. Armstrong on 01/09. Plan: NEURO: PMH of bipolar schizophrenia, dpression, anxiety. A&Ox4. Cam negative. Acute post operative pain. Anxiety. Pt takes 0.5mg lorazepam prn at home (every other night on average) --> - Serial neuro and pain assessments - Scheduled Tylenol - PRN oxycodone, dilaudid for pain - Scheduled robaxin - increase to 1000mg TID - restarted home 0.5mg lorazepam prn nightly - PT Consult, OOB to chair as tolerated, chair position if not tolerated - CAM ICU score qshift - Sleep/wake cycle hygiene CV: Patient has a history of afib, complete heart block s/p ICD pacemaker, and severe MR. Is now status post MVR. Pre/Post EF: Normal BiV function, no MR. Arrived to CTICU off pressors. PPM set DDD 60-140, ICD is on. --> - Continuous EKG and ABP monitoring - Maintain goal SBP <140, MAP > 65 - No indication for statin - Start ASA 81mg today - Start Metop 12.5mg BID - Volume resuscitate as clinically indicated PULM: No history of pulmonary disease. Chest tubes 1 mediastinal, 1 L and 1 R pleural. --> - Daily CXR in ICU - Wean FiO2 maintaining SpO2 >92%. - IS q1h and OOB to chair - Chest tubes to wall suction. Will dc today as have met criteria GI: PMH of GERD, not on home PPI. C/o heartburn this AM --> - Start pantoprazole PO - Cardiac diet - Colace/senna BID and miralax BID : Preop wt Weight: 101 kg (222 lb 10.6 oz) CSA-GENE Risk Score low. No history of renal disease, baseline creatinine 0.81. Creatinine stable post-op. Brady in place and making adequate UOP. --> - Daily weights - RFP as clinically indicated - Replete electrolytes per CTICU protocol ENDO: No PMH. A1c: 5.3. --> - Maintain BG <180 - cardiac surgery insulin SSI per CTICU protocol HEME: Acute blood loss anemia and thrombocytopenia. --> - Monitor drain output volume and characteristics - CBC daily - coags and fibrinogen as clinically indicated - SQH today - SCDs for DVT prophylaxis. - Last type and screen: 01/09 ID: Afebrile, no current indications of infection. MRSA negative. --> - Trend temp q4h - Periop cefazolin x 48hrs Skin: No active skin issues. - preventative Mepilex dressings in place on sacrum and heels - change preventative Mepilex weekly or more frequently as indicated (when moist/soiled) - every shift skin assessment per nursing and weekly ICU skin rounds - moisture barrier to be applied with milena care - active skin problems addressed with nursing on daily rounds Proph: SCDs PPI SQH G: Lines Right IJ MAC w Minimac placed 01/09 - dc Left brachial a-line placed 01/09 - dc Brady - dc F: Family: will update at bedside when available A,B,C,D,E,F,G: reviewed Dispo: Transfer to T3 CTICU TEAM PHONE [phone] Cosigned by Jones Brunson MD at 01/10/2025 11:40 PM EDT Associated attestation - Jones Brunson MD - 01/10/2025 11:40 PM EDT Brief Attending Summary: Please refer to the dedicated ICU Attending Note I have reviewed and evaluated the most recent data and results, personally examined the patient, and formulated the plan of care as presented above. This patient was critically ill and required continued critical care treatment. Teaching and any separately billable procedures are not included in the time calculation. Billing Provider Critical Care Time: 39 minutes Pharmacy Medication History Review Michell Ponce is a 49 y.o. female who is planned to be admitted for Mitral regurgitation. Pharmacy called the patient prior to their scheduled procedure and reviewed the patient's [id number] medications for accuracy. Medications ADDED: none Medications CHANGED: Lorazepam 0.5mg directions from #[id number] TO #1 tab daily if needed Medications REMOVED: none Please review updated prior to admission medication list and comments regarding how patient may be taking medications differently by going to Admission tab --> Admission Orders --> Admit Orders / Review prior to admission medications. Preferred pharmacy, last doses of medications, and allergies to be confirmed with patient by nursing the day of procedure. Sources used to complete the med history include: [facility] Pharmacy dispense history Patient Interview Moderate historian Chart Review Care Everywhere Below are additional concerns with the patient's PROMOTION PRODUCER list. Patient states they are taking #1 tablet of lorazepam 0.5mg daily if needed. L.F. [facility]03/[facility] Patient received furosemide 20mg and metoprolol succinate 25mg on 12/04/24, but has not started those medications yet. Waiting until after the procedure to re-evaluate with doctor to see if these medications are needed Michelle Mosquera [facility] Please reach out via Secure Chat for questions documented in this encounter [facility] Work Phone: 01-13-2025 Miscellaneous Notes Brief General Neurology Note Patient seen at bedside. Headaches resolved with no migraines medications but just with time. Blurry vision has also resolved. Likely what she experienced was a complex migraine. She says that opioids are a trigger which can definitely be the case so would avoid those. She has outpatient neurologist that she follows up with so she does not need to follow up with us. Brief Exam: Visual mota intact. Recommendations: - neurology signing off Derrick Bella MD PhD PGY-3 Neurology Patient seen and discussed with Dr. Luna Rapid Response Nurse Note: BAT Pager time: [phone] Arrival time: 1318 Event end time: 1328 Location: [place] [id number] [] Triage by phone or secure messaging Rapid response initiated by: [] Rapid response RN [] Family [] Nursing Pressure Sealer And Tester [] Physician [] RADAR auto page [] Sepsis auto-page [x] RN [] RT [] SPECIALTY SALES REPRESENTATIVE/PA [] Other: Primary reason for call: [x] BAT [] New CPAP/BiPAP [] Bleeding [] Change in mental status [] Chest pain [] Code blue [] FiO2 >/= 50% [] HR </= 40 bpm [] HR >/= 130 bpm [] Hyperglycemia [] Hypoglycemia [] RADAR [] RR </= 8 bpm [] RR >/= 30 bpm [] SBP </= 90 mmHg [] SpO2 < 90% [] Seizure [] Sepsis [] Shortness of breath [x] Staff concern: Peripheral vision loss in left eye Initial VS and/or RADAR VS: T 36.1 C; HR 79; RR 18; BP 105/73; SPO2 94%. Providers present at bedside (if applicable): LEIF Alcala (primary team), BAT team Name of ICU Provider contacted (if applicable): n/a Interventions: [] None [] ABG/VBG [] Assist w/ICU transfer [] BAT paged [] Bag mask [] Blood [] Cardioversion [] Code Blue [] Code blue for intubation [] Code status changed [] Chest x-ray [] EKG [] IV fluid/bolus [] KUB x-ray [] Labs/cultures [] Medication [] Nebulizer treatment [] NIPPV (CPAP/BiPAP) [] Oxygen [] Oral airway [] Peripheral IV [] Palliative care consult [] CT/MRI [] Sepsis protocol [] Suctioned [x] Other: BAT team NIH assessment Outcome: [] Coded and [] Code blue for intubation [] Coded and transferred to ICU [] on division [x] Remained on division (no change) [] Remained on division + additional monitoring [] Remained in ED [] Transferred to ED [] Transferred to ICU [] Transferred to inpatient status [] Transferred for interventions (procedure) [] Transferred to ICU stepdown [] Transferred to surgery [] Transferred to telemetry [] Sepsis protocol [] STEMI protocol [] Stroke protocol [x] Bedside nurse instructed to page rapid response for any concerns or acute change in condition/VS Additional Comments: Received page for BAT. Upon arrival, BAT team assessing patient and eventually cancelled BAT. Ophthalmology consulted, primary RN also present and in agreement with care plan and instructed to repage rapid response with any further concerns. The patient's goals for the shift include The clinical goals for the shift include Pt will remain HDS thoughout this shift Problem: Pain - Adult Goal: Verbalizes/displays adequate comfort level or baseline comfort level Outcome: Progressing Problem: Safety - Adult Goal: Free from fall injury Outcome: Progressing Problem: Discharge Planning Goal: Discharge to home or other facility with appropriate resources Outcome: Progressing Problem: Chronic Conditions and Co-morbidities Goal: Patient's chronic conditions and co-morbidity symptoms are monitored and maintained or improved Outcome: Progressing Problem: Nutrition Goal: Nutrient intake appropriate for maintaining nutritional needs Outcome: Progressing Problem: Skin Goal: Decreased wound size/increased tissue granulation at next dressing change Outcome: Progressing Goal: Participates in plan/prevention/treatment measures Outcome: Progressing Goal: Prevent/manage excess moisture Outcome: Progressing Goal: Prevent/minimize sheer/friction injuries Outcome: Progressing Goal: Promote/optimize nutrition Outcome: Progressing Goal: Promote skin healing Outcome: Progressing Problem: Diabetes Goal: Achieve decreasing blood glucose levels by end of shift Outcome: Progressing Goal: Increase stability of blood glucose readings by end of shift Outcome: Progressing Goal: Decrease in ketones present in urine by end of shift Outcome: Progressing Goal: Maintain electrolyte levels within acceptable range throughout shift Outcome: Progressing Goal: Maintain glucose levels >70mg/dl to <250mg/dl throughout shift Outcome: Progressing Goal: No changes in neurological exam by end of shift Outcome: Progressing Goal: Learn about and adhere to nutrition recommendations by end of shift Outcome: Progressing Goal: Vital signs within normal range for age by end of shift Outcome: Progressing Goal: Increase self care and/or family involovement by end of shift Outcome: Progressing Goal: Receive DSME education by end of shift Outcome: Progressing Problem: Knowledge Deficit Goal: Patient/family/caregiver demonstrates understanding of disease process, treatment plan, medications, and discharge instructions Outcome: Progressing Problem: Fall/Injury Goal: Not fall by end of shift Outcome: Progressing Goal: Be free from injury by end of the shift Outcome: Progressing Goal: Verbalize understanding of personal risk factors for fall in the hospital Outcome: Progressing Goal: Verbalize understanding of risk factor reduction measures to prevent injury from fall in the home Outcome: Progressing Goal: Use assistive devices by end of the shift Outcome: Progressing Goal: Pace activities to prevent fatigue by end of the shift Outcome: Progressing Problem: Pain Goal: Takes deep breaths with improved pain control throughout the shift Outcome: Progressing Goal: Turns in bed with improved pain control throughout the shift Outcome: Progressing Goal: Walks with improved pain control throughout the shift Outcome: Progressing Goal: Performs ADL's with improved pain control throughout shift Outcome: Progressing Goal: Participates in PT with improved pain control throughout the shift Outcome: Progressing Goal: Free from opioid side effects throughout the shift Outcome: Progressing Goal: Free from acute confusion related to pain meds throughout the shift Outcome: Progressing MITRAL VALVE REPAIR W/32MM SIMUPLUS BAND, MEDIAN STERNOTOMY, LIGATION OF RABIA, POSTERIOR PERICARDIOTOMY Operative Note Date: 01/09/2025 OR Location: [facility] OR Name: Michell Ponce, : 1975, Age: 49 y.o., , Sex: female Diagnosis Pre-op Diagnosis * Mitral valve insufficiency, unspecified etiology [I34.0] Post-op Diagnosis * Mitral valve insufficiency, unspecified etiology [I34.0] Procedures MITRAL VALVE REPAIR W/32MM SIMUPLUS BAND, MEDIAN STERNOTOMY, LIGATION OF RABIA, POSTERIOR PERICARDIOTOMY 11158 - MT VALVULOPLASTY MITRAL VALVE W/CARDIAC BYPASS Median sternotomy, mitral valve repair with 32 mm annuloplasty band, ligation and excision of left atrial appendage, posterior pericardiotomy, removal of thrombus off of right atrial permanent pacemaker leads Surgeons * Gordon Armstrong - Primary Resident/Fellow/Other Tea Bag Machine Tender: Surgeons and Role: * No surgeons found with a matching role * Staff: Clerical Assistant: Kellie Bloom Person: Sandra Bloom Person: Sloan Ruby On Rails Developer: Crispin Ruby On Rails Developer: Natacha Jeong Clerical Assistant: Ila Anesthesia Staff: Anesthesiologist: Yoseph Gutierrez DO PARALEGALS: Tee Hernandez APRN-ANISH Insert Operator: Janae Valencia Procedure Summary Anesthesia: General ASA: III Estimated Blood Loss: 250 mL Intra-op Medications: Administrations occurring from 0645 to 1230 on 01/09/25: Medication Name Total Dose vancomycin (Vancocin) vial for injection 1 g sodium chloride 0.9 % irrigation solution 2,000 mL gentamicin (Garamycin) injection 80 mg albumin human bottle 5% 500 mL aminocaproic acid (Amicar) 25 g in sodium chloride 0.9% 250 mL (0.1 g/mL) infusion 5 g aminocaproic acid (Amicar) injection 3.13 g calcium chloride 100 mg/mL syringe 1 g calcium chloride 10% 1 g ceFAZolin (Ancef) vial 1 g 4 g electrolyte-A (Plasmalyte-A) solution Cannot be calculated electrolyte-A (Plasmalyte-A) solution Cannot be calculated electrolyte-A (Plasmalyte-A) solution Cannot be calculated fentaNYL (Sublimaze) injection 50 mcg/mL 1,000 mcg heparin injection 1,000 units/mL 30,000 Units heparin injection 1,000 units/mL 3,000 Units insulin regular (HumuLIN R,NovoLIN R) 100 Units in sodium chloride 0.9% 100 mL (1 Units/mL) infusion 4.08 Units insulin regular (HumuLIN R,NovoLIN R) injection 3 Units lidocaine (Xylocaine) injection 2 % 100 mg magnesium sulfate 50 % injection 2 g mannitol 20 % IV 50 mL methadone (Dolophine) injection 10 mg midazolam PF (Versed) injection 1 mg/mL 6 mg norepinephrine (Levophed) 8 mg in sodium chloride 0.9% 250 mL (0.032 mg/mL) infusion (premix) 0.06 mg norepinephrine (Levophed) 16 mcg/mL syringe for Anesthesia 16 mcg oxygen (O2) therapy 1 Dose potassium chloride IV 20 mEq in 100 mL sterile water for injection - premix 20 mEq propofol (Diprivan) injection 10 mg/mL 679.24 mg protamine injection 300 mg rocuronium (ZeMuron) 50 mg/5 mL injection 190 mg sodium bicarbonate injection 1 mEq/mL 50 mEq sugammadex (Bridion) 200 mg/2 mL injection 200 mg Anesthesia Record Intraprocedure I/O Totals Intake electrolyte-A (Plasmalyte-A) solution 2500.00 mL Norepinephrine Drip 0.00 mL The total shown is the total volume documented since Anesthesia Start was filed. Aminocaproic Acid Drip 0.00 mL The total shown is the total volume documented since Anesthesia Start was filed. Insulin Drip 0.00 mL The total shown is the total volume documented since Anesthesia Start was filed. Cell Saver 1480 mL Total Intake 3980 mL Output Urine 550 mL Est. Blood Loss 250 mL Total Output 800 mL Net Net Volume 3180 mL Specimen: ID Type Source Tests Collected by Time 1 : LEFT ATRIAL APPENDAGE Tissue HEART ATRIAL APPENDAGE SURGICAL PATHOLOGY EXAM Gordon Armstrong MD 01/09/2025 0930 A : RIGHT ATRIAL LEAD THROMBUS ON PACEMAKER Tissue THROMBUS (CLOT) FUNGAL CULTURE/SMEAR Gordon Armstrong MD 01/09/2025 0915 Drains and/or Catheters: [REMOVED] Chest Tube 3 Mediastinal (Removed) Function -20 cm H2O 01/10/25 0400 Chest Tube Air Leak No 01/10/25 0400 Patency Intervention Tip/tilt 01/10/25 0400 Drainage Description Serosanguineous 01/10/25 040 Dressing Status Clean;Dry;Occlusive 01/10/25 040 Site Assessment Clean;Dry 01/10/25 040 Surrounding Skin Dry;Intact 01/10/25 040 Output (mL) 10 mL 01/10/25 0600 [REMOVED] Chest Tube 1 Right Pleural (Removed) Function -20 cm H2O 01/10/25 0400 Chest Tube Air Leak No 01/10/25 0400 Patency Intervention Tip/tilt 01/10/25 0400 Drainage Description Serosanguineous 01/10/25 0400 Dressing Status Clean;Dry 01/10/25 040 Site Assessment Dry;Intact 01/10/25 040 Surrounding Skin Dry;Intact 01/10/25 040 Output (mL) 15 mL 01/10/25 0600 [REMOVED] Chest Tube 2 Left Pleural (Removed) Function -20 cm H2O 01/10/25 0400 Chest Tube Air Leak No 01/10/25 0400 Patency Intervention Tip/tilt 01/10/25 0400 Drainage Description Serosanguineous 01/10/25 040 Dressing Status Clean;Dry 01/10/25 0400 Site Assessment Clean;Dry 01/10/25 040 Surrounding Skin Dry;Intact 01/10/25 0400 Output (mL) 40 mL 01/10/25 0600 [REMOVED] NG/OG/Feeding Tube Center mouth (Removed) Tube Status Low intermittent suction 01/09/25 122 Placement Verification Measurements 01/09/25 122 Distal Tube Measurement (cm) 60 cm 01/09/25 122 Site Assessment Clean;Dry;Intact 01/09/25 122 Response To Intervention No resistance met 01/09/251219 Tube Securement Taped to endotracheal tube 01/09/25 122 [REMOVED] Urethral Catheter Non-latex;Temperature probe 14 Fr. (Removed) Site Assessment Clean;Skin intact 01/10/25 040 Collection Container Standard drainage bag 01/10/25399 Securement Method Securing device (Describe) 01/10/25399 Reason for Continuing Urinary Catheterization accurate hourly measurement of urine volume in a critically ill patient that cannot be assessed by other volumes and urine collection strategies 01/10/25 040 Output (mL) 60 mL 01/10/25 0600 [REMOVED] Y Chest Tube 1 and 2 1 Right Pleural 2 Left Pleural (Removed) Tourniquet Times: Implants: Implants Type Name Action Serial No. Other Cardiac Implant BAND, 32MM, SIMUPLUS FLEXIBLE - [id number] Implanted [id number] Findings: There were no pericardial adhesions or effusions. The ascending aorta was soft without evidence of atherosclerosis. The mitral valve regurgitation was secondary to prolapse of the A3 segment of the posterior mitral valve leaflet. Indications: Michell Ponce is an 49 y.o. female who is having surgery for Mitral valve insufficiency, unspecified etiology [I34.0]. Echocardiography demonstrates severe mitral regurgitation secondary to prolapse of the anterior mitral valve leaflet. Coronary angiography does not demonstrate any significant coronary artery disease. The patient was referred for mitral valve repair. Procedure Details: A median sternotomy was performed. The thymus was divided and the pericardium was opened. The ascending aorta was palpated and it was without evidence of atherosclerosis. The patient was heparinized the ascending aorta, SVC, and IVC were all individually cannulated for cardiopulmonary bypass and antegrade and retrograde cardioplegia cannulas were placed. The patient was placed on cardiopulmonary bypass, the ascending aorta was crossclamped, and the heart was arrested and protected with cold blood cardioplegia. During the remainder of the cross-clamp time cold blood cardioplegia was given every 15 to 20 minutes. Left atrial appendage was ligated and excised with a stapling device. A posterior pericardiotomy was then performed extending from the inferior left pulmonary vein down to the diaphragm. A right atriotomy was performed and thrombus was removed from the atrial pacemaker leads. The thrombus was sent to pathology and microbiology for evaluation. A left atriotomy was performed and retractors were placed exposing the mitral valve. Normal-appearing cords from the P3 segment of the posterior mitral valve leaflet were transferred en bloc to the prolapsing A3 segment of the anterior mitral valve leaflet. They were sutured in place with 2 layers of running 5-0 Prolene suture. The posterior annulus was then plicated with a pledgeted 2-0 suture. The posterior medial commissure was then rebuilt with 2 layers of running 5-0 Prolene suture. A posterior annuloplasty was then performed using a 32 mm annuloplasty band. It was sutured in place with interrupted 2-0 sutures. The valve was then tested and appeared to be competent. The left atriotomy was then closed with a running 4-0 Prolene suture and the right atriotomy was closed with a running 5-0 Prolene suture. The heart and ascending aorta were de-aired and the aortic cross-clamp was removed. When the patient's heart was completely de-aired and thoroughly recovered, the patient was weaned from cardiopulmonary bypass without difficulty. Intraoperative transesophageal echocardiography demonstrated similar ventricular function and a well-functioning repaired mitral valve without any insufficiency. All cannulas were removed and the heparin effect was reversed with protamine. Hemostasis was obtained, mediastinal and bilateral pleural chest tubes were placed, and the wounds were closed in the standard fashion. The patient tolerated the procedure well and was brought to the intensive care unit in stable condition. To sponge counts, instrument counts, and needle counts were correct by the circulating nurse. The specimen sent to pathology included the left atrial appendage. The drains included mediastinal and pleural chest tubes. Estimated blood loss was 250 cc. I performed the procedure. Evidence of Infection: No Complications: None; patient tolerated the procedure well. Disposition: ICU - intubated and hemodynamically stable. Condition: stable Task Performed by TIN STACKER or Ruby On Rails Developer: The TIN STACKER assisted throughout the procedure and closed the sternum and mediastinal incision Additional Details: None Attending Attestation: I performed the procedure. Gordon Armstrong The patient's goals for the shift include The clinical goals for the shift include Pt will remain HDS thoughout this shift Problem: Pain - Adult Goal: Verbalizes/displays adequate comfort level or baseline comfort level Outcome: Progressing Problem: Safety - Adult Goal: Free from fall injury Outcome: Progressing Problem: Discharge Planning Goal: Discharge to home or other facility with appropriate resources Outcome: Progressing Problem: Chronic Conditions and Co-morbidities Goal: Patient's chronic conditions and co-morbidity symptoms are monitored and maintained or improved Outcome: Progressing Problem: Nutrition Goal: Nutrient intake appropriate for maintaining nutritional needs Outcome: Progressing Problem: Skin Goal: Decreased wound size/increased tissue granulation at next dressing change Outcome: Progressing Goal: Participates in plan/prevention/treatment measures Outcome: Progressing Goal: Prevent/manage excess moisture Outcome: Progressing Goal: Prevent/minimize sheer/friction injuries Outcome: Progressing Goal: Promote/optimize nutrition Outcome: Progressing Goal: Promote skin healing Outcome: Progressing Problem: Diabetes Goal: Achieve decreasing blood glucose levels by end of shift Outcome: Progressing Goal: Increase stability of blood glucose readings by end of shift Outcome: Progressing Goal: Decrease in ketones present in urine by end of shift Outcome: Progressing Goal: Maintain electrolyte levels within acceptable range throughout shift Outcome: Progressing Goal: Maintain glucose levels >70mg/dl to <250mg/dl throughout shift Outcome: Progressing Goal: No changes in neurological exam by end of shift Outcome: Progressing Goal: Learn about and adhere to nutrition recommendations by end of shift Outcome: Progressing Goal: Vital signs within normal range for age by end of shift Outcome: Progressing Goal: Increase self care and/or family involovement by end of shift Outcome: Progressing Goal: Receive DSME education by end of shift Outcome: Progressing Problem: Knowledge Deficit Goal: Patient/family/caregiver demonstrates understanding of disease process, treatment plan, medications, and discharge instructions Outcome: Progressing Problem: Fall/Injury Goal: Not fall by end of shift Outcome: Progressing Goal: Be free from injury by end of the shift Outcome: Progressing Goal: Verbalize understanding of personal risk factors for fall in the hospital Outcome: Progressing Goal: Verbalize understanding of risk factor reduction measures to prevent injury from fall in the home Outcome: Progressing Goal: Use assistive devices by end of the shift Outcome: Progressing Goal: Pace activities to prevent fatigue by end of the shift Outcome: Progressing Problem: Pain Goal: Takes deep breaths with improved pain control throughout the shift Outcome: Progressing Goal: Turns in bed with improved pain control throughout the shift Outcome: Progressing Goal: Walks with improved pain control throughout the shift Outcome: Progressing Goal: Performs ADL's with improved pain control throughout shift Outcome: Progressing Goal: Participates in PT with improved pain control throughout the shift Outcome: Progressing Goal: Free from opioid side effects throughout the shift Outcome: Progressing Goal: Free from acute confusion related to pain meds throughout the shift Outcome: Progressing The patient's goals for the shift include The clinical goals for the shift include pt will remain HDS this shift Problem: Pain - Adult Goal: Verbalizes/displays adequate comfort level or baseline comfort level Outcome: Progressing Problem: Safety - Adult Goal: Free from fall injury Outcome: Progressing Problem: Discharge Planning Goal: Discharge to home or other facility with appropriate resources Outcome: Progressing Problem: Chronic Conditions and Co-morbidities Goal: Patient's chronic conditions and co-morbidity symptoms are monitored and maintained or improved Outcome: Progressing Problem: Nutrition Goal: Nutrient intake appropriate for maintaining nutritional needs Outcome: Progressing Problem: Skin Goal: Decreased wound size/increased tissue granulation at next dressing change Outcome: Progressing Goal: Participates in plan/prevention/treatment measures Outcome: Progressing Goal: Prevent/manage excess moisture Outcome: Progressing Goal: Prevent/minimize sheer/friction injuries Outcome: Progressing Goal: Promote/optimize nutrition Outcome: Progressing Goal: Promote skin healing Outcome: Progressing Problem: Diabetes Goal: Achieve decreasing blood glucose levels by end of shift Outcome: Progressing Goal: Increase stability of blood glucose readings by end of shift Outcome: Progressing Goal: Decrease in ketones present in urine by end of shift Outcome: Progressing Goal: Maintain electrolyte levels within acceptable range throughout shift Outcome: Progressing Goal: Maintain glucose levels >70mg/dl to <250mg/dl throughout shift Outcome: Progressing Goal: No changes in neurological exam by end of shift Outcome: Progressing Goal: Learn about and adhere to nutrition recommendations by end of shift Outcome: Progressing Goal: Vital signs within normal range for age by end of shift Outcome: Progressing Goal: Increase self care and/or family involovement by end of shift Outcome: Progressing Goal: Receive DSME education by end of shift Outcome: Progressing Problem: Knowledge Deficit Goal: Patient/family/caregiver demonstrates understanding of disease process, treatment plan, medications, and discharge instructions Outcome: Progressing Problem: Fall/Injury Goal: Not fall by end of shift Outcome: Progressing Goal: Be free from injury by end of the shift Outcome: Progressing Goal: Verbalize understanding of personal risk factors for fall in the hospital Outcome: Progressing Goal: Verbalize understanding of risk factor reduction measures to prevent injury from fall in the home Outcome: Progressing Goal: Use assistive devices by end of the shift Outcome: Progressing Goal: Pace activities to prevent fatigue by end of the shift Outcome: Progressing Problem: Pain Goal: Takes deep breaths with improved pain control throughout the shift Outcome: Progressing Goal: Turns in bed with improved pain control throughout the shift Outcome: Progressing Goal: Walks with improved pain control throughout the shift Outcome: Progressing Goal: Performs ADL's with improved pain control throughout shift Outcome: Progressing Goal: Participates in PT with improved pain control throughout the shift Outcome: Progressing Goal: Free from opioid side effects throughout the shift Outcome: Progressing Goal: Free from acute confusion related to pain meds throughout the shift Outcome: Progressing Michell Wooten is a 49 y.o. F with a PMHx of anemia, anxiety, depression, asthma, afib, complete heart block s/p ICD pacemaker, dizziness, GERD, PTSD, bipolar schizophrenia, seizure disorder and headaches who presented for MVR with Dr. Armstrong on 01/09. 01/09/2025 OPERATION: by Gordon Armstrong 1. MEDIAN STERNOTOMY 2. MITRAL VALVE REPAIR W/32MM SIMUPLUS BAND 3. LIGATION OF RABIA, 4. 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 Ophthalmology signed off 01/12; follow up with outside eye provider for glasses. - Cardiac rehab referral was placed - PT recs home and low intensity therapy - unable to obtain home care services; provided with outpatient scripts for PT/OT; referred to healthy at home - Anticipate discharge to home with family assistance - Her semiconductor testing group leader recently left the practice; she will follow up with the office to schedule an appointment with a new semiconductor testing group leader - Prescriptions sent to meds to beds Discharged on 01/14/25 On day of discharge, vital signs were stable and no acute distress was noted. All questions were answered. After VS and labs were reviewed it was determined the patient was stable for discharge. Hospital day of discharge management- spent >30 minutes coordinating the discharge and counseling/educating patient and family regarding discharge instructions. HISTORY: Past Medical History as of 01/09/2025 11:15 AM Diagnosis Date Abnormal uterine bleeding 01/02/2025 Abnormal uterine bleeding (AUB) Adenomyosis 12/30/2021 Adverse effect of anesthesia over 10 years ago at [facility] in [place]. Once when I was under general anesthesia, I was woken after and I could not remember how to take a breath or I could not inhale and it terrified me. I had massive anxiety over this for days. I could hear the person saying to breathe but I couldn't. Anemia 2021 From severe uterine bleeding, had dnc and ablation of uterus. Had to have Iron Infusion Anxiety 1994 to Ongoing Severe panic disorder and Axiety Asthma 2004 coughing induced Atrial fibrillation (Multi) Ongoing I do get atrial flutter it is documented from my device clinic at [facility] Atrial tachycardia Bipolar affective (Multi) Blood in stool 08/09/2023 Cardiomyopathy 90's to Mid I am not even sure if I still have this or not but I did when I was in heart failure Cardiomyopathy 01/02/2025 11/29/2017: TTE: LVEF 50%, left ventricle size upper limits of normal. Mild to moderate posterior directly MR. Mild TR and MT. RVSP 21 mmHg. 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 Constipation 02/19/2016 Constipation 01/02/2025 COVID-19 2021 Once Depression 1994 to ongoing Disease due to severe acute respiratory syndrome coronavirus 2 (SARS-CoV-2) 01/02/2025 Disease of thyroid gland 2022 enlarged thyroid and thyroid nodule Dizziness Ongoing I get dizziness sometimes Dysfunctional uterine bleeding 2021 had dnc and ablation for severe bleeding and anemia Dysmetabolic syndrome X 06/12/2005 Easy bruising Ongoing Fibroid 2021 GERD (gastroesophageal reflux disease) 2023 I was diagnosed from endoscopy Gestational diabetes 1994 first child H/O: GI bleed 07/22/2023 Heart failure [id number] Was in Heart Failure until I got the Accounting Intern-d pacer combo Heart failure [id number] Was in Heart Failure until I got the Accounting Intern-d pacer combo Hemorrhoids 01/02/2025 Hiatal hernia 2023 History of anxiety state 01/02/2025 Low back pain, unspecified 03/01/2024 Metabolic disease 1999 Metabolic syndrome X Multiple premature ventricular complexes 01/02/2025 Neuromuscular disorder (Multi) 2021 periodic limb movement disorder Obesity Ongoing Obesity, Class I, BMI 30-34.9 08/21/2020 Pacemaker First Implanted in 1993 I think Current Accounting Intern-d pacer Implanted 07/19/20 First Implanted at 16 now I have a staff accountant-d pace combo Palpitations Ongoing I get these often Palpitations 01/02/2025 Panic disorder 01/02/2025 Personal history of other mental and behavioral disorders since I was 19 to ongoing I have severe panic disorder and ptsd Platelet disorder (Multi) Early I was told I have larger red blood cells. Not sure if this is still correct. PLMD (periodic limb movement disorder) 08/23/2020 Primary cardiomyopathy (Multi) 01/02/2025 Comment on above: 11/29/2017: TTE: LVEF 50%, left ventricle size upper limits of normal. Mild to moderate posterior directly MR. Mild TR and MT. RVSP 21 mmHg. 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 Tubular adenoma of colon 08/20/2023 Vertigo 2020 to ongoing I do get vertigo occasionally, sometimes severe Past Surgical History as of 01/09/2025 11:15 AM Procedure Laterality Date CARDIAC CATHETERIZATION CARDIAC DEFIBRILLATOR PLACEMENT SECTION, LOW TRANSVERSE 1994, , 98 3 children COLONOSCOPY 2023 Through [facility] COLPOSCOPY 2021 [facility] DILATION AND CURETTAGE OF UTERUS 2021 ENDOMETRIAL ABLATION 2021 HYSTEROSCOPY INSERT / REPLACE / REMOVE PACEMAKER 07/19/2020 Wires were implanted in 2008 and 2012 ROLLER PRESSER OPERATOR-d / Pacemaker Implant TUBAL LIGATION 1997 After last child was born in UPPER GASTROINTESTINAL ENDOSCOPY 2023 Through [facility] ALLERGIES: Lisinopril, Naproxen, Adhesive tape-silicones, Antihistamines - ethylenediamine, Diphenhydramine, Morphine, Sertraline, and Topiramate Prescriptions Prior to Admission as of 01/09/2025 11:15 AM Medications Prior to Admission Medication Sig Dispense Refill Last Dose/Taking LORazepam (Ativan) 0.5 mg tablet Take 1 tablet (0.5 mg) by mouth once daily as needed. Past Week Social History as of 01/09/2025 11:15 AM Tobacco Use Smoking status: Former Current packs/day: 0.00 Average packs/day: 2.0 packs/day for 26.0 years (52.0 ttl pk-yrs) Types: Cigarettes Quit date: 05/10/2019 Years since quittin.6 Smokeless tobacco: Never Tobacco comments: I'm not exactly sure when I stopped smoking but it's been over 4 years Substance Use Topics Alcohol use: Not Currently Alcohol/week: 1.0 standard drink of alcohol Types: 1 Shots of liquor per week Comment: in the last 10 years I have not drank more than a couple drinks a year Drug use: Not Currently Types: Marijuana Comment: I have smoke marijuana and was prescribed it but did not continue to use Family History as of 01/09/2025 11:15 AM Problem Relation Name Age of Onset Alcohol abuse Father Curt Gallagher Kesha Sr. 40 - 49 Heart disease Father Curt Gallagher Kesha Sanchez. 50 - 59 Cancer Mother Caty Asher 40 - 49 Hypertension Mother Caty Asher 40 - 49 Anesthesia problems Mother Caty Asher 40 - 49 Asthma Mother Caty Asher 30 - 39 Motion Sickness Mother Caty Asher 20 - 29 Arthritis Maternal Grandmother Michell Lincoln 60 - 69 Problem: Pain - Adult Goal: Verbalizes/displays adequate comfort level or baseline comfort level Outcome: Progressing Problem: Safety - Adult Goal: Free from fall injury Outcome: Progressing Problem: Discharge Planning Goal: Discharge to home or other facility with appropriate resources Outcome: Progressing Problem: Chronic Conditions and Co-morbidities Goal: Patient's chronic conditions and co-morbidity symptoms are monitored and maintained or improved Outcome: Progressing Problem: Nutrition Goal: Nutrient intake appropriate for maintaining nutritional needs Outcome: Progressing Problem: Skin Goal: Decreased wound size/increased tissue granulation at next dressing change Outcome: Progressing Goal: Participates in plan/prevention/treatment measures Outcome: Progressing Goal: Prevent/manage excess moisture Outcome: Progressing Goal: Prevent/minimize sheer/friction injuries Outcome: Progressing Goal: Promote/optimize nutrition Outcome: Progressing Goal: Promote skin healing Outcome: Progressing Problem: Diabetes Goal: Achieve decreasing blood glucose levels by end of shift Outcome: Progressing Goal: Increase stability of blood glucose readings by end of shift Outcome: Progressing Goal: Decrease in ketones present in urine by end of shift Outcome: Progressing Goal: Maintain electrolyte levels within acceptable range throughout shift Outcome: Progressing Goal: Maintain glucose levels >70mg/dl to <250mg/dl throughout shift Outcome: Progressing Goal: No changes in neurological exam by end of shift Outcome: Progressing Goal: Learn about and adhere to nutrition recommendations by end of shift Outcome: Progressing Goal: Vital signs within normal range for age by end of shift Outcome: Progressing Goal: Increase self care and/or family involovement by end of shift Outcome: Progressing Goal: Receive DSME education by end of shift Outcome: Progressing Problem: Knowledge Deficit Goal: Patient/family/caregiver demonstrates understanding of disease process, treatment plan, medications, and discharge instructions Outcome: Progressing Problem: Mechanical Ventilation Goal: Patient Will Maintain Patent Airway Outcome: Progressing Goal: Oral health is maintained or improved Outcome: Progressing Goal: Tracheostomy will be managed safely Outcome: Progressing Goal: ET tube will be managed safely Outcome: Progressing Goal: Ability to express needs and understand communication Outcome: Progressing Goal: Mobility/activity is maintained at optimum level for patient Outcome: Progressing Problem: Fall/Injury Goal: Not fall by end of shift Outcome: Progressing Goal: Be free from injury by end of the shift Outcome: Progressing Goal: Verbalize understanding of personal risk factors for fall in the hospital Outcome: Progressing Goal: Verbalize understanding of risk factor reduction measures to prevent injury from fall in the home Outcome: Progressing Goal: Use assistive devices by end of the shift Outcome: Progressing Goal: Pace activities to prevent fatigue by end of the shift Outcome: Progressing Problem: Pain Goal: Takes deep breaths with improved pain control throughout the shift Outcome: Progressing Goal: Turns in bed with improved pain control throughout the shift Outcome: Progressing Goal: Walks with improved pain control throughout the shift Outcome: Progressing Goal: Performs ADL's with improved pain control throughout shift Outcome: Progressing Goal: Participates in PT with improved pain control throughout the shift Outcome: Progressing Goal: Free from opioid side effects throughout the shift Outcome: Progressing Goal: Free from acute confusion related to pain meds throughout the shift Outcome: Progressing Problem: Safety - Medical Restraint Goal: Remains free of injury from restraints (Restraint for Interference with Um Specialist) 01/09/2025 1512 by Venessa Pena RN Outcome: Met Problem: Safety - Medical Restraint Goal: Free from restraint(s) (Restraint for Interference with Um Specialist) 01/09/2025 1512 by Venessa Pena RN Outcome: Met Problem: Pain - Adult Goal: Verbalizes/displays adequate comfort level or baseline comfort level Outcome: Progressing Problem: Safety - Adult Goal: Free from fall injury Outcome: Progressing Problem: Discharge Planning Goal: Discharge to home or other facility with appropriate resources Outcome: Progressing Problem: Chronic Conditions and Co-morbidities Goal: Patient's chronic conditions and co-morbidity symptoms are monitored and maintained or improved Outcome: Progressing Problem: Nutrition Goal: Nutrient intake appropriate for maintaining nutritional needs Outcome: Progressing Problem: Skin Goal: Decreased wound size/increased tissue granulation at next dressing change Outcome: Progressing Goal: Participates in plan/prevention/treatment measures Outcome: Progressing Goal: Prevent/manage excess moisture Outcome: Progressing Goal: Prevent/minimize sheer/friction injuries Outcome: Progressing Goal: Promote/optimize nutrition Outcome: Progressing Goal: Promote skin healing Outcome: Progressing Problem: Diabetes Goal: Achieve decreasing blood glucose levels by end of shift Outcome: Progressing Goal: Increase stability of blood glucose readings by end of shift Outcome: Progressing Goal: Decrease in ketones present in urine by end of shift Outcome: Progressing Goal: Maintain electrolyte levels within acceptable range throughout shift Outcome: Progressing Goal: Maintain glucose levels >70mg/dl to <250mg/dl throughout shift Outcome: Progressing Goal: No changes in neurological exam by end of shift Outcome: Progressing Goal: Learn about and adhere to nutrition recommendations by end of shift Outcome: Progressing Goal: Vital signs within normal range for age by end of shift Outcome: Progressing Goal: Increase self care and/or family involovement by end of shift Outcome: Progressing Goal: Receive DSME education by end of shift Outcome: Progressing Problem: Knowledge Deficit Goal: Patient/family/caregiver demonstrates understanding of disease process, treatment plan, medications, and discharge instructions Outcome: Progressing Problem: Mechanical Ventilation Goal: Patient Will Maintain Patent Airway Outcome: Progressing Goal: Oral health is maintained or improved Outcome: Progressing Goal: Tracheostomy will be managed safely Outcome: Progressing Goal: ET tube will be managed safely Outcome: Progressing Goal: Ability to express needs and understand communication Outcome: Progressing Goal: Mobility/activity is maintained at optimum level for patient Outcome: Progressing Problem: Safety - Medical Restraint Goal: Remains free of injury from restraints (Restraint for Interference with Um Specialist) Outcome: Progressing Goal: Free from restraint(s) (Restraint for Interference with Um Specialist) Outcome: Progressing Date: 01/09/2025 OR Location: [facility] OR Name: Michell Ponce, : 1975, Age: 49 y.o., , Sex: female Diagnosis Pre-op Diagnosis * Mitral valve insufficiency, unspecified etiology [I34.0] Post-op Diagnosis * Mitral valve insufficiency, unspecified etiology [I34.0] Procedures MITRAL VALVE REPAIR W/32MM SIMUPLUS BAND, MEDIAN STERNOTOMY, LIGATION OF RABIA, POSTERIOR PERICARDIOTOMY 16619 - MT VALVULOPLASTY MITRAL VALVE W/CARDIAC BYPASS MEDIAN STERNOTOMY MITRAL VALVE REPAIR W/32MM SIMUPLUS BAND LIGATION OF RABIA, POSTERIOR PERICARDIOTOMY Chest Tubes/Drains: 1 RIGHT PLEURAL 1 LEFT PLEURAL 1 MED Temporary Pacing Wires: NA -Settings: -Underlying Rhythm: Permanent pacer/ICD: Yes -Preoperative settings: -Intra-op/ Postoperative settings: DOO 90 Sternotomy performed by: Gordon Armstrong MD Conduit Harvested by: KATIE Sternal Wires placed by: Jamin FERRIS Arm/Leg/Groin Closure/Cutdown performed by: Jamin FERRIS Cardio Pulmonary Bypass Time: 92 MIN Cross-clamp Time: 75 MIN Circulatory Arrest: No Time: Is patient candidate for Emergency Re-sternotomy? Yes -If yes, POD #10 is - 01/19/25 Surgeons * Gordon Armstrong - Primary Resident/Fellow/Other Tea Bag Machine Tender: Surgeons and Role: * No surgeons found with a matching role * Jamin FERRIS Staff: Clerical Assistant: Kellie Bloom Person: Sandra Bloom Person: Sloan Ruby On Rails Developer: Crispin Ruby On Rails Developer: Natacha Jeong Clerical Assistant: Ila Anesthesia Staff: Anesthesiologist: Yoseph Gutierrez DO PARALEGALS: Tee Hernandez APRN-PARALEGALS Insert Operator: Janae Valencia Procedure Summary Anesthesia: General ASA: III Estimated Blood Loss: 250mL Intra-op Medications: Administrations occurring from 0645 to 1230 on 01/09/25: Medication Name Total Dose vancomycin (Vancocin) vial for injection 1 g sodium chloride 0.9 % irrigation solution 2,000 mL gentamicin (Garamycin) injection 80 mg albumin human bottle 5% 500 mL aminocaproic acid (Amicar) 25 g in sodium chloride 0.9% 250 mL (0.1 g/mL) infusion 5 g aminocaproic acid (Amicar) injection 3.57 g calcium chloride 100 mg/mL syringe 1 g calcium chloride 10% 1 g ceFAZolin (Ancef) vial 1 g 4 g electrolyte-A (Plasmalyte-A) solution Cannot be calculated electrolyte-A (Plasmalyte-A) solution Cannot be calculated electrolyte-A (Plasmalyte-A) solution Cannot be calculated fentaNYL (Sublimaze) injection 50 mcg/mL 1,000 mcg heparin injection 1,000 units/mL 30,000 Units heparin injection 1,000 units/mL 3,000 Units insulin regular (HumuLIN R,NovoLIN R) 100 Units in sodium chloride 0.9% 100 mL (1 Units/mL) infusion 4.08 Units insulin regular (HumuLIN R,NovoLIN R) injection 3 Units lidocaine (Xylocaine) injection 2 % 100 mg magnesium sulfate 50 % injection 2 g mannitol 20 % IV 50 mL methadone (Dolophine) injection 10 mg midazolam PF (Versed) injection 1 mg/mL 6 mg norepinephrine (Levophed) 8 mg in sodium chloride 0.9% 250 mL (0.032 mg/mL) infusion (premix) 0.06 mg norepinephrine (Levophed) 16 mcg/mL syringe for Anesthesia 16 mcg potassium chloride IV 20 mEq in 100 mL sterile water for injection - premix 20 mEq propofol (Diprivan) injection 10 mg/mL 679.24 mg protamine injection 300 mg rocuronium (ZeMuron) 50 mg/5 mL injection 190 mg sodium bicarbonate injection 1 mEq/mL 50 mEq Anesthesia Record Intraprocedure I/O Totals Intake Norepinephrine Drip 0.00 mL The total shown is the total volume documented since Anesthesia Start was filed. Aminocaproic Acid Drip 0.00 mL The total shown is the total volume documented since Anesthesia Start was filed. Insulin Drip 0.00 mL The total shown is the total volume documented since Anesthesia Start was filed. Cell Saver 1480 mL Total Intake 1480 mL Output Urine 550 mL Total Output 550 mL Net Net Volume 930 mL Specimen: ID Type Source Tests Collected by Time 1 : LEFT ATRIAL APPENDAGE Tissue HEART ATRIAL APPENDAGE SURGICAL PATHOLOGY EXAM Gordon Armstrong MD 01/09/2025 [id number] A : RIGHT ATRIAL LEAD THROMBUS ON PACEMAKER Tissue THROMBUS (CLOT) FUNGAL CULTURE/SMEAR Gordon Armstrong MD 01/09/2025 [id number] Findings: MS Complications: None; patient tolerated the procedure well. Disposition: ICU - intubated and hemodynamically stable. Condition: stable Specimens Collected: ID Type Source Tests Collected by Time 1 : LEFT ATRIAL APPENDAGE Tissue HEART ATRIAL APPENDAGE SURGICAL PATHOLOGY EXAM Gordon Armstrong MD 01/09/2025 0930 A : RIGHT ATRIAL LEAD THROMBUS ON PACEMAKER Tissue THROMBUS (CLOT) FUNGAL CULTURE/SMEAR Gordon Armstrong MD 01/09/2025 0915 Attending Attestation: I was present and scrubbed for the entire procedure. Gordon Armstrong Cosigned by Gordon Armstrong MD at 01/11/2025 11:52 AM EDT documented in this encounter [facility] Work Phone: 01-12-2025 Consult note Formatting of th is note is different from the original. Consults History Of Present Illness Michell Ponce is a 49 y.o. female PMHx of complex migraine, anemia, anxiety, depression, asthma, afib, congenital cardiomyopathy, complete heart block s/p ICD pacemaker, dizziness, GERD, PTSD, bipolar schizophrenia, seizure disorder and headaches who presented for MVR with Dr. Armstrong on 01/09. BAT called on 01/12 1:12PM for left eye monocular vision changes that started 30 mins ago. LKW 12: 45PM, BP 101/69, Glucose 101. NIHSS 1 (Partial HH) On history, patients says she has history of few migraines in a month with visual aura which consist of colorful circles in her visual field in both eyes. Patient reports she has had a migraine since this morning but now has blurry vision just in her left eye which is unusual for her. Denies complete vision loss or scotoma but says an area of left abiola-field in her left eye which has been blurry for the last 30 mins. Does report having a headache at time of interview but denies any weakness, numbness or imbalance. Says in the past has had hemiplegic migraines - complains of alternating weakness with migraines in the past. Usually takes a tylenol for her migraines, has been told by her neurologist to avoid triptans. Also has had an adverse reaction to antihistamines - says they make her feel anxious. No nausea, photophobia or phonophobia. Patient has no history of stroke or intracranial bleeds. Past Medical History Medical History[1] Surgical History Surgical History[2] Social History Social History[3] Former smoker Allergies Lisinopril, Naproxen, Adhesive tape-silicones, Antihistamines - ethylenediamine, Diphenhydramine, Morphine, Sertraline, and Topiramate Prescriptions Prior to Admission[4] Review of Systems Neurological Exam Physical Exam Neurological Exam: MENTAL STATUS: General appearance: No distress, alert, interactive and cooperative. Orientation:x3 Language: Expression an comprehension intact Judgment: Intact Insight: Intact CRANIAL NERVES: - II: Visual mota to digits intact to confrontation bilaterally tested individually and together (on left eye visual field testing, patient was able to identify digits in all 4 quadrants, but reported blurry vision in the middle of her left abiola-field) - III, IV, : PERRL, EOMI to pursuit without nystagmus - V: V1-V3 sensation intact bilaterally - VII: Face muscles symmetric with smile and eye closure - VIII: Intact to finger rub bilaterally - IX, X: Palate elevated symmetrically bilaterally, no hoarseness - XI: 5/5 strength on shoulder shrugging bilaterally - XII: Tongue midline without atrophy or fasciculation MOTOR: Tone and bulk normal in all extremities No pronator drift bilaterally. No fasciculations, tremor or other abnormal movements were present. STRENGTH: R L Deltoid 5 5 Biceps 5 5 Triceps 5 5 User Interface Artist 5 5 Hip flexion 5 5 Quadriceps 5 5 Hamstrings 5 5 DorsiFlex 5 5 PlantarFlex 5 5 REFLEXES: R L Biceps 2 2 Triceps 2 2 Brachioradialis 2 2 Patellar 2 2 COORDINATION: Intact on finger to nose bl, intact on heel to serrato bl SENSORY: Intact to light touch in bl UE and LE GAIT: Deferred Last Recorded Vitals Blood pressure 105/73, pulse 79, temperature 36.1 C (97 F), temperature source Temporal, resp. rate 18, height 1.753 m (5' 9), weight 103 kg (226 lb 11.2 oz), SpO2 94%. Relevant Results Roderick Coma Scale Best Eye Response: Spontaneous Best Verbal Response: Oriented Best Motor Response: Follows commands Roderick Coma Scale Score: 15 I have personally reviewed the following imaging results: Imaging XR chest 2 views Result Date: 01/12/2025 1. Small left and trace right pleural effusions with bibasilar atelectasis. No pneumothorax. MACRO: None Signed by: Jose M Mann 01/12/2025 2:01 PM Dictation workstation: [id number] XR chest 1 view Result Date: 01/11/2025 1. No sizable pneumothorax status post removal of chest tubes. 2. Bibasilar atelectasis and suggestion of small left pleural effusion. Signed by: Lilly Rodriguez 01/11/2025 11:11 AM Dictation workstation: [id number] XR chest 1 view Result Date: 01/10/2025 1. Improved appearance of the bilateral perihilar interstitial opacifications and bibasilar atelectasis. Worsening aeration of the lungs compared to prior. Findings likely expected in the postsurgical setting. 2. Interval removal of the endotracheal tube. 3. Additional medical devices as above. I personally reviewed the images/study and I agree with the findings as stated by Aries Roldan D.O. (assistant vice president). This study was interpreted at [place], [place]. MACRO: None Signed by: Niraj Bella 01/10/2025 3:09 PM Dictation workstation: [id number] Anesthesia Intraoperative Transesophageal Echocardiogram Result Date: 01/10/2025 CONCLUSIONS: 1. The left ventricular systolic function is normal with a visually estimated ejection fraction of 55-60%. 2. There is normal right ventricular global systolic function. 3. The left atrium is enlarged. 4. Severe mitral valve regurgitation. 5. Moderate tricuspid regurgitation visualized. XR chest 1 view Result Date: 01/09/2025 1. Perihilar and bibasilar bandlike opacifications likely promotional representative of atelectasis with small left and trace right pleural effusions. Findings compatible with expected postsurgical changes. 2. Endotracheal tube with distal tip projecting 3.9 cm from the katlyn. 3. Additional medical devices as above. I personally reviewed the images/study and I agree with the findings as stated by Aries Roldan D.O. (assistant vice president). This study was interpreted at [place], [place]. MACRO: None Signed by: Niraj Bella 01/09/2025 2:13 PM Dictation workstation: [id number] Cardiology, Vascular, and Other Imaging Anesthesia Intraoperative Transesophageal Echocardiogram Result Date: 01/10/2025 [facility] - Dept of Anesthesiology [address] [place] [address] and TRANSESOPHAGEAL ECHOCARDIOGRAM REPORT Patient Name: MICHELL WOOTEN Reading Physician: [id number] Gutierrez DO Study Date: 01/09/2025 Ordering Provider: [id number] HERNANDEZ MRN/PID: [id number] Fellow: Nurse: Date of /Age: 5 1975 Tech Writer: years Gender assigned at F Additional Staff: : BSA / BMI: m2 / kg/m2 Blood Pressure: / Department Location: [facility] Study Type: ANESTHESIA INTRAOPERATIVE JOAQUÍN Diagnosis/ICD: Nonrheumatic mitral (valve) insufficiency-I34.0 CPT Code: Color Doppler-90525; Doppler Limited-88494; JOAQUÍN Complete-[id number] PHYSICIAN INTERPRETATION: Left Ventricle: The left ventricular systolic function is normal with a visually estimated ejection fraction of 55-60%. The left ventricular cavity size is normal. Left ventricular diastolic filling was not assessed. Left Atrium: The left atrium is enlarged. There is no evidence of a patent foramen ovale. Right Ventricle: The right ventricle is normal in size. There is normal right ventricular global systolic function. Right Atrium: The right atrial size was not assessed. Aortic Valve: The aortic valve is structurally normal. There is no evidence of aortic valve stenosis. There is no evidence of aortic valve regurgitation. Mitral Valve: The mitral valve is abnormal. There is no evidence of mitral valve stenosis. There is severe mitral valve regurgitation. Severe eccentric MR. 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 Tricuspid Valve: The tricuspid valve is abnormal. There is moderate tricuspid regurgitation. Pacer/ICD wires present. Pulmonic Valve: The pulmonic valve is structurally normal. There is no indication of pulmonic valve regurgitation. Pericardium: There is no pericardial effusion noted. Aorta: The aortic root is normal. In comparison to the previous echocardiogram(s): Not performed on intraoperative study. CONCLUSIONS: 1. The left ventricular systolic function is normal with a visually estimated ejection fraction of 55-60%. 2. There is normal right ventricular global systolic function. 3. The left atrium is enlarged. 4. Severe mitral valve regurgitation. 5. Moderate tricuspid regurgitation visualized. POST PROCEDURE REPORT: Patient is being paced. Patient is on no inotropic support. Global LV function is normal. Global RV function is normal. A mitral ring is now seen and is well seated. There is no evidence of mitral stenosis. There is no evidence of systolic anterior motion of the mitral valve. The estimated mitral valve mean gradient is 4 mmHg. 32 mm simuplus ring. No MR. No MS. No evidence of post aortic cannulation dissection. All transesophageal echocardiogram findings discussed with surgeon. QUANTITATIVE DATA SUMMARY: LV SYSTOLIC FUNCTION: Normal Ranges: EF-Visual: 58 % LV EF Reported: 58 % [id number] Yoseph Gutierrez DO Electronically signed on 01/10/2025 at 7:44:15 AM Final CONCLUSIONS: 1. The left ventricular systolic function is normal with a visually estimated ejection fraction of 55-60%. 2. There is normal right ventricular global systolic function. 3. The left atrium is enlarged. 4. Severe mitral valve regurgitation. 5. Moderate tricuspid regurgitation visualized. Assessment/Plan Assessment & Plan Mitral regurgitation Mitral valve insufficiency, unspecified etiology Michell Ponce is a 49 y.o. female PMHx of complex migraine, anemia, anxiety, depression, asthma, afib (not active), complete heart block s/p ICD pacemaker, dizziness, GERD, PTSD, bipolar schizophrenia, seizure disorder and headaches who presented for MVR with Dr. Armstrong on 01/09. BAT called on 01/12 1:12PM for left eye monocular vision changes that started 30 mins ago. On history presentation likely 2/2 migraine associated visual aura, however give recent Mitral valve replacement (though relatively remote 01/09) there might be a chance for CRAO/BRAO - will decide on further workup pending Ophthalmology evaluation. - Please administer migraine cocktail - 1mg Mg IV, 10mg Metoclopramide IV, 1L NS over 1 hour - Please ophthalmology evaluation to r/o CRAO/BRAO - Will decide on further workup pending Ophthalmology evaluation - Will reexamine vision changes after migraine resolved - Neurology Will continue to follow Prachi Serrano MD Neurology PGY-4 Will staff with General attending in AM I spent 60 minutes in the professional and overall care of this patient. Prachi Serrano MD [1] Past Medical History: Diagnosis Date Abnormal uterine bleeding 01/02/2025 Abnormal uterine bleeding (AUB) Adenomyosis 12/30/2021 Adverse effect of anesthesia over 10 years ago at [facility] in [place]. Once when I was under general anesthesia, I was woken after and I could not remember how to take a breath or I could not inhale and it terrified me. I had massive anxiety over this for days. I could hear the person saying to breathe but I couldn't. Anemia 2021 From severe uterine bleeding, had dnc and ablation of uterus. Had to have Iron Infusion Anxiety 1994 to Ongoing Severe panic disorder and Axiety Asthma 2004 coughing induced Atrial fibrillation (Multi) Ongoing I do get atrial flutter it is documented from my device clinic at [facility] Atrial tachycardia Bipolar affective (Multi) Blood in stool 08/09/2023 Cardiomyopathy 90's to Mid 1999' I am not even sure if I still have this or not but I did when I was in heart failure Cardiomyopathy 01/02/2025 11/29/2017: TTE: LVEF 50%, left ventricle size upper limits of normal. Mild to moderate posterior directly MR. Mild TR and MT. RVSP 21 mmHg. 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 Constipation 02/19/2016 Constipation 01/02/2025 COVID-19 2021 Once Depression 1994 to ongoing Disease due to severe acute respiratory syndrome coronavirus 2 (SARS-CoV-2) 01/02/2025 Disease of thyroid gland 2022 enlarged thyroid and thyroid nodule Dizziness Ongoing I get dizziness sometimes Dysfunctional uterine bleeding 2021 had dnc and ablation for severe bleeding and anemia Dysmetabolic syndrome X 06/12/2005 Easy bruising Ongoing Fibroid 2021 GERD (gastroesophageal reflux disease) 2023 I was diagnosed from endoscopy Gestational diabetes 1994 first child H/O: GI bleed 07/22/2023 Heart failure [id number] Was in Heart Failure until I got the Accounting Intern-d pacer combo Heart failure Was in Heart Failure until I got the Accounting Intern-d pacer combo Hemorrhoids 01/02/2025 Hiatal hernia 2023 History of anxiety state 01/02/2025 Low back pain, unspecified 03/01/2024 Metabolic disease 2000 Metabolic syndrome X Multiple premature ventricular complexes 01/02/2025 Neuromuscular disorder (Multi) 2021 periodic limb movement disorder Obesity Ongoing Obesity, Class I, BMI 30-34.9 08/21/2020 Pacemaker First Implanted in 1993 I think Current Accounting Intern-d pacer Implanted 07/19/20 First Implanted at 16 now I have a staff accountant-d pace combo Palpitations Ongoing I get these often Palpitations 01/02/2025 Panic disorder 01/02/2025 Personal history of other mental and behavioral disorders since I was 19 to ongoing I have severe panic disorder and ptsd Platelet disorder (Multi) Early I was told I have larger red blood cells. Not sure if this is still correct. PLMD (periodic limb movement disorder) 08/23/2020 Primary cardiomyopathy (Multi) 01/02/2025 Comment on above: 11/29/2017: TTE: LVEF 50%, left ventricle size upper limits of normal. Mild to moderate posterior directly MR. Mild TR and MT. RVSP 21 mmHg. 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 Tubular adenoma of colon 08/20/2023 Vertigo 2020 to ongoing I do get vertigo occasionally, sometimes severe [2] Past Surgical History: Procedure Laterality Date CARDIAC CATHETERIZATION CARDIAC DEFIBRILLATOR PLACEMENT SECTION, LOW TRANSVERSE 1994, , 98 3 children COLONOSCOPY 2023 Through [facility] COLPOSCOPY 2021 [facility] DILATION AND CURETTAGE OF UTERUS 2021 ENDOMETRIAL ABLATION 2021 HYSTEROSCOPY INSERT / REPLACE / REMOVE PACEMAKER 07/19/2020 Wires were implanted in 2008 and 2012 ROLLER PRESSER OPERATOR-d / Pacemaker Implant TUBAL LIGATION 1998 After last child was born in 98 UPPER GASTROINTESTINAL ENDOSCOPY 2023 Through [facility] [3] Social History Tobacco Use Smoking status: Former Current packs/day: 0.00 Average packs/day: 2.0 packs/day for 26.0 years (52.0 ttl pk-yrs) Types: Cigarettes Quit date: 05/10/2019 Years since quittin.6 Smokeless tobacco: Never Tobacco comments: I'm not exactly sure when I stopped smoking but it's been over 4 years Substance Use Topics Alcohol use: Not Currently Alcohol/week: 1.0 standard drink of alcohol Types: 1 Shots of liquor per week Comment: in the last 10 years I have not drank more than a couple drinks a year Drug use: Not Currently Types: Marijuana Comment: I have smoke marijuana and was prescribed it but did not continue to use [4] Medications Prior to Admission Medication Sig Dispense Refill Last Dose/Taking chlorhexidine (Hibiclens) 4 % external liquid Use as directed daily perioperatively 473 mL 0 01/09/2025 Morning chlorhexidine (Peridex) 0.12 % solution Swish and spit with 15ml of solution the night before and morning of surgery. Do not swallow. 120 mL 0 01/09/2025 Morning LORazepam (Ativan) 0.5 mg tablet Take 1 tablet (0.5 mg) by mouth once daily as needed. Past Week Cosigned by Tal Luna DO at 01/13/2025 11:29 AM EDT Associated attestation - Tal Luna DO - 01/13/2025 11:29 AM EDT I saw and evaluated the patient. I personally obtained the lopez and critical portions of the history and physical exam or was physically present for lopez and critical portions performed by the resident/fellow. I reviewed the resident/fellow's documentation and discussed the patient with the resident/fellow. I agree with the resident/fellow's medical decision making as documented in the note with the exception/addition of the following: Examination is nonfocal. Symptoms have resolved, and headache has improved. Blurry vision was transient and noted at the headache's peak. No sandra vision loss or evidence of amaurosis fugax. Etiology of her symptoms is most consistent with migraine with aura and her symptoms have subsequently resolved without abortive therapy. Symptoms are not consistent with seizure or stroke. No symptoms characteristic for GCA. She should follow-up with her neurologist in [place]. Tal Luna DO Attending Physician Department of Neurology documented in this encounter [facility] Work Phone: 01-11-2025 Hospital Discharg e instructions Kristi Locke, PUTTY REMOVER-GASOLINE TESTER - 01/11/2025 2:54 PM EDT CARDIAC SURGERY DISCHARGE INSTRUCTIONS Don't forget to Keep Your Move in the Tube!! Please refer to the Move in the Tube handout. -- Load bearing activities can be completed if you are staying in the tube. If you are attempting load bearing activities, let pain be your guide with when trying an activity out of the tube . If an activity hurts or is uncomfortable go back to doing it while you stay in the tube . There is no time limit to stay in the tube . -- Non-load bearing activities, which are your activities of daily living, can be completed with your arms out of the tube as long as you remain pain free. Some activities of daily living examples are dressing, personal care, showering, washing hair, and toilet hygiene. Don't forget to KEEP YOUR MOVE IN THE TUBE and think of a T. Kailash dinosaur! IMPORTANT Prevention of Infective Endocarditis (Heart Infections) After Cardiac Surgery: Infective endocarditis occurs when bacteria enters the bloodstream and then attaches to the heart. Patients with a new heart valve, repaired heart valve, or graft used to repair/replace their aorta are at higher risk for developing this because of the prosthetic (man-made) medical material in their heart. Endocarditis is rare but when you undergo certain medical or dental procedures, as listed below, it can give bacteria an opportunity to enter the blood and cause this type of infection. To prevent this, preventative antibiotics taken before these procedures are required. Antibiotics are always required PRIOR to the following: - Dental work with gingival, periapical, or other gingival perforation (such as tooth extractions, dental abscess drainage, and dental cleanings) - Respiratory procedures with incisions or biopsies - Cardiac or vascular procedures to place or replace prosthetic material (such as heart valves, stents, etc.) Antibiotics are required in the following situations ONLY if an infection is already present: - Skin or soft tissue procedures with infected tissue - Gastrointestinal procedures with GI infections - Urinary or genital procedure with acute genitourinary infections Antibiotic examples you should expect to be prescribed: - Amoxicillin or Ampicillin are usually the first choice - Cephalexin, Clindamycin, or Vancomycin may be used if you are unable to tolerate/allergic to Amoxicillin or Ampicillin - Amoxicillin or Ampicillin (if allergic, use Vancomycin) will cover for enterococcus if you have a known acute biliary tract infection - Specific antibiotics for a known organism should be used when treating an active infection Please notify your dentist/primary physician/semiconductor testing group leader PRIOR to these types of procedures to obtain the proper antibiotics and prevent a serious infection in your heart. When in doubt, always ask! Additionally, good oral hygiene (routine brushing, flossing, and dental care) and prompt treatment of other infections (such as UTIs and skin infections) are equally as important to prevent endocarditis!! Additional Post-Operative Instructions: - Remember to use your Incentive spirometer 10x/hr while awake. Remember to cough and deep breath. - No NSAIDs (common gxyc-sth-hbamwii NSAIDs are ibuprofen/Motrin/Advil, naproxen/Naprosyn/Aleve) for 3 months after cardiac surgery; if NSAIDs needed after 3 months, clear use with semiconductor testing group leader before starting. - If you have a dressing on your incision that looks like a piece of clear tape (Dermabond Prineo), please leave this in place for at least 2 weeks, although it may last longer. You should shower and wash over it while it is in place. After 2 weeks, you may remove it using vaseline. Your home medications may have changed after surgery. Carefully compare this list with your prescription bottles at home and set aside any medications you are told to not take so you do not confuse them. Do not dispose of any medications until your follow-up, since your doctors may restart some at your follow-up appointments. It is important to bring a complete, current list of your medications to any medical appointments or hospitalizations. For any questions about your discharge, please call the cardiac surgery office at [phone] documented in this encounter [facility] Work Phone: 01-09-2025 History and physical note CTICU History & Physical Subjective HPI: Michell Wooten is a 49 y.o. F with a PMHx of anemia, anxiety, depression, asthma, afib, complete heart block s/p ICD pacemaker, dizziness, GERD, PTSD, bipolar schizophrenia, seizure disorder and headaches who presented for MVR with Dr. Armstrong on 01/09. Cardiac Testing: TTE: Severe MR secondary to flail anterior leaflet of mitral valve. LHC: Coronary angiography does not demonstrate any significant coronary artery disease. Procedure/Surgeon: MITRAL VALVE REPAIR W/32MM SIMUPLUS BAND, MEDIAN STERNOTOMY, LIGATION OF RABIA, POSTERIOR PERICARDIOTOMY with Dr. Armstrong. Frontliner/Anesthesia: Tee Rekolt with Dr. Gutierrez Out of OR Time (document on ventilator card): 12:20 OR Course/Issues: Concern for possible connective tissue issues, clotting on ICD wires Echo Pre/Post: Severe eccentric MR/Normal BiV function, No MR, small mass on RA lead which was removed Chest Tubes/Drains: 1 mediastinal, 1 L and 1 R pleural Temporary wires location/setting: None due to ICD Bypass time: 92 minutes Cross-clamp time: 75 minutes No circulatory arrest Fluids Crystalloid: 2500 mL Colloid: 500 mL Cellsaver: 1200 mL Products: 0 EBL: 250 mL UOP: 550 mL Anesthesia Intubation: 7.5 tube, grade 1 view, Mac 3 blade Intravenous Access: Right internal jugular double lumen central line, PIV, L brachial A-line AICD: Yes PPM: No Regional anesthesia: No Benzodiazepine dose/last administration: 6 mg midazolam total at 1022 Opioid dose/last administration: 100 mcg fentanyl total NMB dose/last administration: last dose at 1047 TOF/ reversal given: By anesthesia at bedside Antibiotic time: 1200 Temperature on admission to ICU: 35.5 Medical History[1] Surgical History[2] Prescriptions Prior to Admission[3] Lisinopril, Naproxen, Adhesive tape-silicones, Antihistamines - ethylenediamine, Diphenhydramine, Morphine, Sertraline, and Topiramate Social History[4] Family History[5] Objective Vitals: Most Recent: Vitals: 01/09/25 0623 BP: 134/74 Pulse: 83 Resp: 18 Temp: 36.3 C (97.3 F) SpO2: 100% 24hr Min/Max: Temp Min: 36.3 C (97.3 F) Max: 36.3 C (97.3 F) Pulse Min: 83 Max: 83 BP Min: 134/74 Max: 134/74 Resp Min: 18 Max: 18 SpO2 Min: 100 % Max: 100 % I/O: No intake/output data recorded. LDA: CVC 01/09/25 Double lumen Right Internal jugular (Active) Placement Date/Time: 01/09/25 (c) 0800 Hand Hygiene Performed Prior to CVC Insertion: Yes Site Prep: Chlorhexidine Site Prep Agent has Completely Dried Before Insertion: Yes All 5 Sterile Barriers Used (Gloves, Gown, Cap, Mask, Large Sterile Sharon... Number of days: 0 Arterial Line 01/09/25 Left Brachial (Active) Placement Date/Time: 01/09/25 (c) 0735 Size: 20 G Orientation: Left Location: Brachial Securement Method: Transparent dressing Patient Tolerance: Tolerated well Number of days: 0 ETT 7.5 mm (Active) Placement Date/Time: 01/09/25 (c) 0740 Mask Ventilation: Vent by mask Technique: Direct laryngoscopy ETT Type: ETT - single Single Lumen Tube Size: 7.5 mm Cuffed: Yes Laryngoscope: Gigi Blade Size: 3 Grade View: Full view of the glottis ... Number of days: 0 Urethral Catheter Non-latex;Temperature probe 14 Fr. (Active) Placement Date/Time: 01/09/25 0755 Placed by External Staff?: Other (Comment) Placed by: Lesly MEZA SA Hand Hygiene Completed: Yes Catheter Type: Non-latex;Temperature probe Tube Size (Fr.): 14 Fr. Catheter Balloon Size: 10 mL Urine Returned: Yes Number of days: 0 Chest Tube 3 Mediastinal (Active) Placement Date/Time: 01/09/25 1109 Placed by External Staff?: Other (Comment) Placed by: Nabil MONTANEZ Hand Hygiene Completed: Yes Tube Number: 3 Chest Tube Location: Mediastinal Number of days: 0 Y Chest Tube 1 and 2 1 Right Pleural 2 Left Pleural (Active) Placement Date/Time: 01/09/25 1109 Placed by External Staff?: Other (Comment) Placed by: Nabil MONTANEZ Hand Hygiene Completed: Yes Tube Number 1: 1 Chest Tube Orientation 1: Right Chest Tube Location 1: Pleural Tube Number 2: 2 Chest Tube Or... Number of days: 0 Physical Exam: - CONSTITUTION: Intubated female - NEUROLOGIC: unable to assess - CARDIOVASCULAR: Paced rhythm DOO @90 - RESPIRATORY: B/l breath sounds - GI: soft, non-distended - : brady draining clear yellow urine - EXTREMITIES: palpable pulses - SKIN: warm and dry - PSYCHIATRIC: unable to assess Lab Review: No lab exists for component: LABALBU Results from last 7 days Lab Units 01/09/25 1051 POCT PH, ARTERIAL pH 7.34* POCT PCO2, ARTERIAL mm Hg 44* POCT PO2, ARTERIAL mm Hg 221* POCT HCO3 CALCULATED, ARTERIAL mmol/L 23.7 POCT BASE EXCESS, ARTERIAL mmol/L -2.0 Most recent labs and imaging reviewed. Daily Risk Screen Intubated: Central line: Brady: Assessment/Plan Assessment: Plan: NEURO: PMH of bipolar schizophrenia, dpression, anxiety Patient is intubated and sedated on propofol infusion. Acute post operative pain. --> - Serial neuro and pain assessments - Switch from propofol to precedex for anxiety with extubation - NMB reversal when normothermic and hemodynamically stable. - Scheduled Tylenol - PRN oxycodone - PRN dilaudid for pain - PT Consult, OOB to chair as tolerated, chair position if not tolerated - CAM ICU score qshift - Sleep/wake cycle hygiene - Hold home lorazepam CV: Patient has a history of afib, complete heart block s/p ICD pacemaker, and severe MR. Is now status post MVR. Pre/Post EF: Normal BiV function, no MR. Arrived to CTICU off pressors. ICD set at DOO @ 90. Cardiac device check ordered. --> - Maintain goal SBP <140 - Mixed venous and CI Q4H - Volume resuscitate as clinically indicated PULM: No history of pulmonary disease. Currently intubated on ventilator. Chest tubes 1 mediastinal, 1 L and 1 R pleural. --> - F/u post op CXR - Wean ventilator settings towards CPAP & extubation - Wean FiO2 maintaining SpO2 >92%. - IS q1h and OOB to chair when extubated - Chest tubes to wall suction. GI: PMH of GERD, not on home PPI. --> - Continue PPI until extubated - NPO, will perform bedside swallow eval post extubation - Colace/senna BID and miralax BID : Preop wt Weight: 101 kg (222 lb 10.6 oz) CSA-GENE Risk Score low. No history of renal disease, baseline creatinine 0.81. Creatinine stable post-op. Brady in place and making adequate UOP. --> - Daily weights - Continue brady catheter for strict I/Os. - Goal UOP 0.5ml/kg/hr - RFP as clinically indicated - Replete electrolytes per CTICU protocol ENDO: No PMH. A1c: 5.3. --> - Maintain BG <180, insulin per CTICU protocol HEME: Acute blood loss anemia and thrombocytopenia. --> - Monitor drain output volume and characteristics - CBC, coags, and fibrinogen post op and as clinically indicated - Start ASA 6hrs post-op for CABG - If CABG is 2/2 STEMI/unstable angina, will receive Plavix POD2 - SQH tomorrow - SCDs for DVT prophylaxis. - Last type and screen: 01/09 ID: Afebrile, no current indications of infection. MRSA negative. --> - Trend temp q4h - Periop cefazolin x 48hrs Skin: No active skin issues. - preventative Mepilex dressings in place on sacrum and heels - change preventative Mepilex weekly or more frequently as indicated (when moist/soiled) - every shift skin assessment per nursing and weekly ICU skin rounds - moisture barrier to be applied with milena care - active skin problems addressed with nursing on daily rounds Proph: SCDs PPI G: Lines Right IJ MAC w Minimac placed 01/09 Left brachial a-line placed 01/09 F: Family: will update at bedside postoperatively. A,B,C,D,E,F,G: reviewed Dispo: CTICU care for now. CTICU TEAM PHONE [phone] Luke Mohamud MD [1] Past Medical History: Diagnosis Date Abnormal uterine bleeding 01/02/2025 Abnormal uterine bleeding (AUB) Adenomyosis 12/30/2021 Adverse effect of anesthesia over 10 years ago at [facility] in [place]. Once when I was under general anesthesia, I was woken after and I could not remember how to take a breath or I could not inhale and it terrified me. I had massive anxiety over this for days. I could hear the person saying to breathe but I couldn't. Anemia 2021 From severe uterine bleeding, had dnc and ablation of uterus. Had to have Iron Infusion Anxiety 1994 to Ongoing Severe panic disorder and Axiety Asthma 2004 coughing induced Atrial fibrillation (Multi) Ongoing I do get atrial flutter it is documented from my device clinic at [facility] Atrial tachycardia Bipolar affective (Multi) Blood in stool 08/09/2023 Cardiomyopathy 's to Mid I am not even sure if I still have this or not but I did when I was in heart failure Cardiomyopathy 01/02/2025 11/29/2017: TTE: LVEF 50%, left ventricle size upper limits of normal. Mild to moderate posterior directly MR. Mild TR and MT. RVSP 21 mmHg. 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 Constipation 02/19/2016 Constipation 01/02/2025 COVID-19 2021 Once Depression 1994 to ongoing Disease due to severe acute respiratory syndrome coronavirus 2 (SARS-CoV-2) 01/02/2025 Disease of thyroid gland 2022 enlarged thyroid and thyroid nodule Dizziness Ongoing I get dizziness sometimes Dysfunctional uterine bleeding 2021 had dnc and ablation for severe bleeding and anemia Dysmetabolic syndrome X 06/12/2005 Easy bruising Ongoing Fibroid 2021 GERD (gastroesophageal reflux disease) 2023 I was diagnosed from endoscopy Gestational diabetes 1994 first child H/O: GI bleed 07/22/2023 Heart failure 9718-0993 Was in Heart Failure until I got the Accounting Intern-d pacer combo Heart failure 9027-0211 Was in Heart Failure until I got the Accounting Intern-d pacer combo Hemorrhoids 01/02/2025 Hiatal hernia 2023 History of anxiety state 01/02/2025 Low back pain, unspecified 03/01/2024 Metabolic disease 1999 Metabolic syndrome X Multiple premature ventricular complexes 01/02/2025 Neuromuscular disorder (Multi) 2021 periodic limb movement disorder Obesity Ongoing Obesity, Class I, BMI 30-34.9 08/21/2020 Pacemaker First Implanted in 1993 I think Current Accounting Intern-d pacer Implanted 07/19/20 First Implanted at 16 now I have a staff accountant-d pace combo Palpitations Ongoing I get these often Palpitations 01/02/2025 Panic disorder 01/02/2025 Personal history of other mental and behavioral disorders since I was 19 to ongoing I have severe panic disorder and ptsd Platelet disorder (Multi) Early I was told I have larger red blood cells. Not sure if this is still correct. PLMD (periodic limb movement disorder) 08/23/2020 Primary cardiomyopathy (Multi) 01/02/2025 Comment on above: 11/29/2017: TTE: LVEF 50%, left ventricle size upper limits of normal. Mild to moderate posterior directly MR. Mild TR and MT. RVSP 21 mmHg. 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 Tubular adenoma of colon 08/20/2023 Vertigo 2020 to ongoing I do get vertigo occasionally, sometimes severe [2] Past Surgical History: Procedure Laterality Date CARDIAC CATHETERIZATION CARDIAC DEFIBRILLATOR PLACEMENT SECTION, LOW TRANSVERSE 1994, , 98 3 children COLONOSCOPY 2023 Through [facility] COLPOSCOPY 2021 [facility] DILATION AND CURETTAGE OF UTERUS 2021 ENDOMETRIAL ABLATION 2021 HYSTEROSCOPY INSERT / REPLACE / REMOVE PACEMAKER 07/19/2020 Wires were implanted in 2008 and 2012 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 Do not swallow. 120 mL 0 01/09/2025 Morning LORazepam (Ativan) 0.5 mg tablet Take 1 tablet (0.5 mg) by mouth once daily as needed. Past Week [4] Social History Tobacco Use Smoking status: Former Current packs/day: 0.00 Average packs/day: 2.0 packs/day for 26.0 years (52.0 ttl pk-yrs) Types: Cigarettes Quit date: 05/10/2019 Years since quittin.6 Smokeless tobacco: Never Tobacco comments: I'm not exactly sure when I stopped smoking but it's been over 4 years Substance Use Topics Alcohol use: Not Currently Alcohol/week: 1.0 standard drink of alcohol Types: 1 Shots of liquor per week Comment: in the last 10 years I have not drank more than a couple drinks a year Drug use: Not Currently Types: Marijuana Comment: I have smoke marijuana and was prescribed it but did not continue to use [5] Family History Problem Relation Name Age of Onset Alcohol abuse Father Curt Rebolledo Sr. 40 - 49 Heart disease Father Curt Rebolledo Sr. 50 - 59 Cancer Mother Caty Asher 40 - 49 Hypertension Mother Caty Asher 40 - 49 Anesthesia problems Mother Caty Asher 40 - 49 Asthma Mother Caty Asher 30 - 39 Motion Sickness Mother Caty Asher 20 - 29 Arthritis Maternal Grandmother Michell Lincoln 60 - 69 Cosigned by Santiago White MD at 01/10/2025 8:13 AM EDT Associated attestation - Santiago White MD - 01/10/2025 8:13 AM EDT I have reviewed and evaluated the most recent data and results, personally examined the patient, and formulated the plan of care as presented above. This patient was critically ill and required continued critical care treatment. Teaching and any separately billable procedures are not included in the time calculation. Billing Provider Critical Care Time: 42 minutes H&P reviewed. The patient was examined and there are no changes to the H&P. Source Note - Reanna Freeman APRN-GASOLINE TESTER - 12/25/2024 9:15 AM EDT Images from the original note were not included. CPM/PAT Evaluation Name: Michell Wooten (Michell Ponce) /Age: 509/24/1975/49 y.o. Visit Type: In-Person Chief Complaint: Perioperative visit HPI 49 y/o female scheduled for Mitral Valve Repair on 01/09/25 secondary to Mitral valve insufficiency, unspecified etiology with Dr. GORDON ARMSTRONG who referred to CPM. Presents to CPM today for perioperative risk stratification and optimization. PMHX includes abnormal uterine bleeding, anemia, anxiety, depression, asthma, atrial fibrillation, atrial tachycardia, bipolar affective, cardiomyopathy, dizziness, GERD, metabolic syndrome, PTSD, schizophrenia, seizure disorder and headaches. Medical History[1] Surgical History[2] Patient reports that she is not currently sexually active and has had partner(s) who are female and male. She reports using the following methods of control/protection: Abstinence and Female Sterilization. Family History[3] Allergies[4] Prior to Admission medications Not on File PAT ROS: Constitutional: neg Neuro/Psych: neg Eyes: use of corrective lenses Ears: neg Nose: neg Mouth: neg Throat: neg Neck: neg Cardio: neg ZAVALA (with anxiety, comes and goes) Respiratory: neg Endocrine: neg GI: constipation : neg Musculoskeletal: Hematologic: bruises/bleeds easily Skin: neg Physical Exam Vitals reviewed. Constitutional: Appearance: Normal appearance. She is obese. HENT: Head: Normocephalic. Nose: Nose normal. Mouth/Throat: Pharynx: Oropharynx is clear. Eyes: Pupils: Pupils are equal, round, and reactive to light. Comments: Corrective lenses on Cardiovascular: Rate and Rhythm: Normal rate. Pulses: Normal pulses. Heart sounds: Normal heart sounds. Pulmonary: Effort: Pulmonary effort is normal. Breath sounds: Normal breath sounds. Genitourinary: Comments: Not examined Musculoskeletal: General: Normal range of motion. Cervical back: Normal range of motion. Skin: General: Skin is warm and dry. Neurological: General: No focal deficit present. Mental Status: She is alert and oriented to person, place, and time. Psychiatric: Thought Content: Thought content normal. Judgment: Judgment normal. Comments: Appears anxious PAT AIRWAY: Airway: Mallampati:: II TM distance:: >3 FB Neck ROM:: Full upper dentures and lower dentures Visit Vitals BP (!) 134/91 Pulse 74 Temp 36.2 C (97.1 F) Ht 1.753 m (5' 9) Wt 102 kg (224 lb 8 oz) SpO2 98% BMI 33.15 kg/m Smoking Status Former BSA 2.23 m DASI Risk Score Flowsheet Row Pre-Admission Testing from 12/25/2024 in [facility] Questionnaire Series Submission from 11/28/2024 in [facility] [place] with Generic Provider Valarie Can you take care of yourself (eat, dress, bathe, or use toilet)? 2.75 filed at 12/25/2024 0937 2.75 filed at 11/28/2024 1408 Can you walk indoors, such as around your house? 1.75 filed at 12/25/2024 0937 1.75 filed at 11/28/2024 1408 Can you walk a block or two on level ground? 2.75 filed at 12/25/2024 0937 2.75 filed at 11/28/2024 1408 Can you climb a flight of stairs or walk up a hill? 5.5 filed at 12/25/202437 5.5 filed at 11/28/2024 1408 Can you run a short distance? 0 filed at 12/25/202437 0 filed at 11/28/2024 1408 Can you do light work around the house like dusting or washing dishes? 2.7 filed at 12/25/202437 2.7 filed at 11/28/2024 1408 Can you do moderate work around the house like vacuuming, sweeping floors or carrying groceries? 3.5 filed at 12/25/2024 0937 3.5 filed at 11/28/2024 1408 Can you do heavy work around the house like scrubbing floors or lifting and moving heavy furniture? 0 filed at 12/25/2024 0937 0 filed at 11/28/2024 1408 Can you do yard work like raking leaves, weeding or pushing a mower? 0 filed at 12/25/2024 0937 0 filed at 11/28/2024 1408 Can you have sexual relations? 0 filed at 12/25/2024 0937 0 filed at 11/28/2024 1408 Can you participate in moderate recreational activities like golf, bowling, dancing, doubles tennis or throwing a baseball or football? 0 filed at 12/25/2024 0937 0 filed at 11/28/2024 1408 Can you participate in strenous sports like swimming, singles tennis, football, basketball, or skiing? 0 filed at 12/25/2024 0937 0 filed at 11/28/2024 1408 DASI SCORE 18.95 filed at 12/25/2024 0937 18.95 filed at 11/28/2024 1408 METS Score (Will be calculated only when all the questions are answered) 5.1 filed at 12/25/2024 0937 5.1 filed at 11/28/2024 1408 Capjesseniai DVT Assessment Flowsheet Row Pre-Admission Testing from 12/25/2024 in [facility] DVT Score (IF A SCORE IS NOT CALCULATING, MUST SELECT A BMI TO COMPLETE) 10 filed at 12/25/2024 1004 Medical Factors Swollen legs filed at 12/25/2024 1004 Surgical Factors Major surgery planned, lasting over 3 hours filed at 12/25/2024 1004 BMI (BMI MUST BE CHOSEN) 31-40 (Obesity) filed at 12/25/2024 1004 Modified Frailty Index No data to display [id number] Stroke Risk Points Current as of just now N/A 0 to 9 Points: Last Change: N/A The [id number] risk score (Lip NEDA, et al. 2009. 2010 [employer]) quantifies the risk of stroke for a patient with atrial fibrillation. For patients without atrial fibrillation or under the age of 18 this score appears as N/A. Higher score values generally indicate higher risk of stroke. This score is not applicable to this patient. Components are not calculated. Revised Cardiac Risk Index Flowsheet Row Pre-Admission Testing from 12/25/2024 in [facility] High-Risk Surgery (Intraperitoneal, Intrathoracic,Suprainguinal vascular) 1 filed at 12/25/2024 1005 History of ischemic heart disease (History of TX, History of positive exercuse test, Current chest paint considered due to myocardial ischemia, Use of nitrate therapy, ECG with pathological Q Waves) 0 filed at 12/25/2024 1005 History of congestive heart failure (pulmonary edemia, bilateral rales or S3 gallop, Paroxysmal nocturnal dyspnea, CXR showing pulmonary vascular redistribution) 0 filed at 12/25/2024 1005 History of cerebrovascular disease (Prior TIA or stroke) 0 filed at 12/25/2024 1005 Pre-operative insulin treatment 0 filed at 12/25/2024 1005 Pre-operative creatinine>2 mg/dl 0 filed at 12/25/2024 1005 Revised Cardiac Risk Calculator 1 filed at 12/25/2024 1005 Apfel Simplified Score Flowsheet Row Pre-Admission Testing from 12/25/2024 in [facility] Smoking status 1 filed at 12/25/2024 1011 History of motion sickness or PONV 0 filed at 12/25/2024 1011 Use of postoperative opioids 1 filed at 12/25/2024 1011 Gender - Female 1=Yes filed at 12/25/2024 1011 Apfel Simplified Score Calculator 3 filed at 12/25/2024 1011 Risk Analysis Index Results This Encounter No data found in the last 10 encounters. Stop Bang Score Flowsheet Row Pre-Admission Testing from 12/25/2024 in [facility] Questionnaire Series Submission from 11/28/2024 in [facility] [place] with Generic Provider Valarie Do you snore loudly? 0 filed at 12/25/2024 0937 0 filed at 11/28/2024 1408 Do you often feel tired or fatigued after your sleep? 0 filed at 12/25/2024 0937 0 filed at 11/28/2024 1408 Has anyone ever observed you stop breathing in your sleep? 0 filed at 12/25/2024 0937 0 filed at 11/28/2024 1408 Do you have or are you being treated for high blood pressure? 0 filed at 12/25/2024 0937 0 filed at 11/28/2024 1408 Recent BMI (Calculated) 0 filed at 12/25/2024 0937 0 filed at 11/28/2024 1408 Age older than 50 years old? 0=No filed at 12/25/2024 0937 0=No filed at 11/28/2024 1408 Is your neck circumference greater than 17 inches (Male) or 16 inches (Female)? 1 filed at 12/25/2024 0937 -- Gender - Male 0=No filed at 12/25/2024 0937 0=No filed at 11/28/2024 1408 Prodigy: High Risk Total Score: 0 ARISCAT Score for Postoperative Pulmonary Complications Flowsheet Row Pre-Admission Testing from 12/25/2024 in [facility] Age Calculated Score 0 filed at 12/25/2024 1011 Preoperative SpO2 0 filed at 12/25/2024 1011 Respiratory infection in the last month Either upper or lower (i.e., URI, bronchitis, pneumonia), with fever and antibiotic treatment 0 filed at 12/25/2024 1011 Preoperative anemia (Hgb less than 10 g/dl) 0 filed at 12/25/2024 1011 Surgical incision 24 filed at 12/25/2024 1011 Duration of surgery 23 filed at 12/25/2024 1011 Emergency Procedure 0 filed at 12/25/2024 1011 ARISCAT Total Score 47 filed at 12/25/2024 1011 Saenz Perioperative Risk for Myocardial Infarction or Cardiac Arrest (PRATIMA) No data to display Patient Specialist/PCP: Cardiac Surgery - Gordon Armstrong MD Cardiology - Lizzette- Kim Dejesus APRN- LEIF Assessment and Plan: Anesthesia The patient notes anesthesia complications in the past related to patient states she woke up after surgery and could not take a deep breath in, states she couldn't remember how, could hear people telling her to take a breath but was unable to, had severe anxiety afterwards. - States mom had problems with anesthesia, hypotension Airway No documented or reported history of airway difficulty. Neurology #Anxiety, depression, PTSD, panic disorder - Sees therapist, medicated on Ativan (continue) #Migraines, headaches - Takes OTC oral analgesics as needed #H/o seizures prior to pacemaker placement, has not had a seizure since. Not requiring antiepileptic medication The patient is at increased risk for postoperative delirium secondary to depression. The patient is at increased risk for perioperative stroke secondary to cardiac disease, female gender, general anesthesia, operative time >2.5 hours, cardiac or emergency surgery. HEENT No diagnoses or significant findings on chart review or clinical presentation and evaluation. Cardiovascular #Mitral regurgitation, cardiomyopathy EF 50-55% and ICD - Patient states she is supposed to be taking Furosemide and Metoprolol, patient states she has not been taking these medications - Patient will need device interrogation day of surgery BP: 134/91 Cardiology Evaluation The patient follows with cardiology, Dr. Mann at [facility]. Per note, follow up after recent JOAQUÍN, patient has a past medical history of cardiomyopathy, mitral valve regurgitation and ICD placement. Admits to having dizziness and SOB. Cardiac Cath; 11/16/24 JOAQUÍN; 10/31/24 ECG 11/16/24: V Paced Complexes, Right bundle branch block METS The patient's functional capacity is greater than 4 METS. RCRI The patient meets 1 RCRI criteria and therefore has a 6% risk of major adverse cardiac complications. PRATIMA score which indicates a 1.4% risk of intraoperative or 30-day postoperative MACE (major adverse cardiac event). Patient is scheduled for cardiac surgery. Preoperative evaluation is complete pending results of MRSA, UA w/ reflex, CRP, Coag, T/s, CBC w/ diff, CMP and CXR Pulmonary #Coughing induced asthma as a child, no issues as an adult. No recent URI's No significant findings on chart review or clinical presentation and evaluation. ERAS patient with incentive spirometry given preop. Patient instruction sheet for incentive spirometry given. STOP BANG 1, which places patient at low risk for having MARKO. ARISCAT 47, High, 42.1% risk of in-hospital postoperative pulmonary complications PRODIGY 0, low risk of respiratory depression episode. Patient given PI sheet for preoperative deep breathing exercises. Encourage incentive spirometry in the postoperative period as deemed necessary. Endocrine #Multinodular goiter - Patient has seen Luz Elena Bella at [facility], per note, I have offered US guided FNA of right thyroid nodule. I have explained procedure to patient. She does not want to go through with procedure. I have recommended follow up US in 1 year as per radiologist report and this can be done with her PCP. US thyroid 08/21/2023 Nodule #1 Location: Right midpole Size: 2.5 x 1.8 x 1.5 cm ; similar to the prior. ACR Recommendation: Follow-up imaging at 1, 3 and 5 years is recommended. Nodule #2 Location: Left midpole Size: 7 x 6 x 5 mm ; similar to the prior. ACR Recommendation: No FNA or further imaging is advised. #Metabolic syndrome X Gastrointestinal #GERD - Takes OTC Tums as needed #Hiatal hernia, intermittent pain #Constipation Eat 10- 0, self-perceived oropharyngeal dysphagia scale (0-40) Genitourinary No diagnoses or significant findings on chart review or clinical presentation and evaluation. Renal No renal diagnoses or significant findings on chart review or clinical presentation and evaluation. DPS 0-1 low risk for perioperative acute kidney injury. Hematology #H/o anemia requiring iron transfusions in 2021, last hemoglobin 13.8 on 12/25/24 Caprini score 10, high risk of perioperative VTE. Patient instructed to ambulate as soon as possible postoperatively to decrease thromboembolic risk. Initiate mechanical DVT prophylaxis as soon as possible and initiate chemical prophylaxis when deemed safe from a bleeding standpoint post surgery. Transfusion Evaluation A type and screen was obtained given the likelihood for perioperative transfusion of blood or blood products. Musculoskeletal #Arthritis in bilateral hands ID No diagnoses or significant findings on chart review or clinical presentation and evaluation. MRSA screening obtained. Prescriptions and instructions given for Hibiclens and Peridex. Diagnostic Results CXR 12/25/24: 1. No evidence of acute cardiopulmonary process. Recent Results (from the past 4 weeks) Comprehensive Metabolic Panel Collection Time: 12/25/24 10:18 AM Result Value Ref Range Glucose 91 74 - 99 mg/dL Sodium 140 136 - 145 mmol/L Potassium 4.1 3.5 - 5.3 mmol/L Chloride 107 98 - 107 mmol/L Bicarbonate 25 21 - 32 mmol/L Anion Gap 12 10 - 20 mmol/L Urea Nitrogen 14 6 - 23 mg/dL Creatinine 0.81 0.50 - 1.05 mg/dL eGFR 89 >60 mL/min/1.73m*2 Calcium 8.8 8.6 - 10.6 mg/dL Albumin 4.1 3.4 - 5.0 g/dL Alkaline Phosphatase 67 33 - 110 U/L Total Protein 6.4 6.4 - 8.2 g/dL AST 17 9 - 39 U/L Bilirubin, Total 0.5 0.0 - 1.2 mg/dL ALT 16 7 - 45 U/L CBC and Auto Differential Collection Time: 12/25/24 10:18 AM Result Value Ref Range WBC 5.3 4.4 - 11.3 x10*3/uL nRBC 0.0 0.0 - 0.0 /100 WBCs RBC 4.91 4.00 - 5.20 x10*6/uL Hemoglobin 13.8 12.0 - 16.0 g/dL Hematocrit 43.2 36.0 - 46.0 % MCV 88 80 - 100 fL MCH 28.1 26.0 - 34.0 pg MCHC 31.9 (L) 32.0 - 36.0 g/dL RDW 13.0 11.5 - 14.5 % Platelets 177 150 - 450 x10*3/uL Neutrophils % 65.9 40.0 - 80.0 % Immature Granulocytes %, Automated 0.2 0.0 - 0.9 % Lymphocytes % 24.6 13.0 - 44.0 % Monocytes % 8.1 2.0 - 10.0 % Eosinophils % 0.6 0.0 - 6.0 % Basophils % 0.6 0.0 - 2.0 % Neutrophils Absolute 3.49 1.20 - 7.70 x10*3/uL Immature Granulocytes Absolute, Automated 0.01 0.00 - 0.70 x10*3/uL Lymphocytes Absolute 1.30 1.20 - 4.80 x10*3/uL Monocytes Absolute 0.43 0.10 - 1.00 x10*3/uL Eosinophils Absolute 0.03 0.00 - 0.70 x10*3/uL Basophils Absolute 0.03 0.00 - 0.10 x10*3/uL Coagulation Screen Collection Time: 12/25/24 10:18 AM Result Value Ref Range Protime 11.2 9.8 - 12.4 seconds INR 1.0 0.9 - 1.1 aPTT 29 26 - 36 seconds C-Reactive Protein Collection Time: 12/25/24 10:18 AM Result Value Ref Range C-Reactive Protein 0.81 <1.00 mg/dL Staphylococcus aureus/MRSA colonization, Culture Collection Time: 12/25/24 10:18 AM Specimen: Nares/Axilla/Groin; Swab Result Value Ref Range Staph/MRSA Screen Culture No Staphylococcus aureus isolated Urinalysis with Reflex Culture and Microscopic Collection Time: 12/25/24 10:18 AM Result Value Ref Range Color, Urine Colorless (N) Light-Yellow, Yellow, Dark-Yellow Appearance, Urine Clear Clear Specific Rio, Urine 1.010 1.005 - 1.035 pH, Urine 6.0 5.0, 5.5, 6.0, 6.5, 7.0, 7.5, 8.0 Protein, Urine NEGATIVE NEGATIVE, 10 (TRACE), 20 (TRACE) mg/dL Glucose, Urine Normal Normal mg/dL Blood, Urine NEGATIVE NEGATIVE mg/dL Ketones, Urine NEGATIVE NEGATIVE mg/dL Bilirubin, Urine NEGATIVE NEGATIVE mg/dL Urobilinogen, Urine Normal Normal mg/dL Nitrite, Urine NEGATIVE NEGATIVE Leukocyte Esterase, Urine NEGATIVE NEGATIVE Extra Urine Brewster Tube Collection Time: 12/25/24 10:18 AM Result Value Ref Range Extra Tube Type And Screen Is this order related to or an upcoming surgery? Yes; Where will this surgery/delivery be performed? [facility]; What is the date of the surgery? 01/09/2025; Has this patient ever had a transfusion? Unknown; H... Collection Time: 12/25/24 10:19 AM Result Value Ref Range ABO TYPE A Rh TYPE POS ANTIBODY SCREEN NEG - Labs and diagnostic testing reviewed on 12/25/24 -Preoperative medication instructions were provided and reviewed with the patient. Any additional testing or evaluation was explained to the patient. NPO Instructions were discussed, and the patient's questions were answered prior to conclusion of this encounter. Patient verbalized understanding of preoperative instructions. After Visit Summary given. [1] Past Medical History: Diagnosis Date Abnormal uterine bleeding (AUB) Adverse effect of anesthesia over 10 years ago at [facility] in [place]. Once when I was under general anesthesia, I was woken after and I could not remember how to take a breath or I could not inhale and it terrified me. I had massive anxiety over this for days. I could hear the person saying to breathe but I couldn't. Anemia 2021 From severe uterine bleeding, had dnc and ablation of uterus. 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 COVID-19 2021 Once Depression 1994 to ongoing Disease of thyroid gland 2022 enlarged thyroid and thyroid nodule Dizziness Ongoing I get dizziness sometimes Dysfunctional uterine bleeding 2021 had dnc and ablation for severe bleeding and anemia Easy bruising Ongoing Fibroid 2021 GERD (gastroesophageal reflux disease) 2023 I was diagnosed from endoscopy Gestational diabetes 1994 first child Heart failure 8022-9733 Was in Heart Failure until I got the Accounting Intern-d pacer combo Heart failure 5525-5578 Was in Heart Failure until I got the Accounting Intern-d pacer combo Hiatal hernia 2023 Metabolic disease 1999 Metabolic syndrome X Neuromuscular disorder (Multi) 2021 periodic limb movement disorder Obesity Ongoing Pacemaker First Implanted in 1993 I think Current Accounting Intern-d pacer Implanted 07/19/20 First Implanted at 16 now I have a staff accountant-d pace combo Palpitations Ongoing I get these often Personal history of other mental and behavioral disorders since I was 19 to ongoing I have severe panic disorder and ptsd Platelet disorder (Multi) Early I was told I have larger red blood cells. Not sure if this is still correct. PTSD (post-traumatic stress disorder) 1997 to ongoing I am in weekly therapy for my mental health Schizophrenia 1999 non medicated Schizo effective Seizure disorder (Multi) 1992 Before pacemaker implantation I had seizures Severe mitral regurgitation Shortness of breath Ongoing Yes I feel short of breath a lot Vertigo 2020 to ongoing I do get vertigo occasionally, sometimes severe [2] Past Surgical History: Procedure Laterality Date CARDIAC CATHETERIZATION CARDIAC DEFIBRILLATOR PLACEMENT SECTION, LOW TRANSVERSE 1994, 97, 98 3 children COLONOSCOPY 2023 Through [facility] COLPOSCOPY 2021 [facility] DILATION AND CURETTAGE OF UTERUS 2021 ENDOMETRIAL ABLATION 2021 HYSTEROSCOPY INSERT / REPLACE / REMOVE PACEMAKER 07/19/2020 Wires were implanted in 2008 and 2012 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 40 - 49 Heart disease Father Curt Rebolledo Sr. 50 - 59 Cancer Mother Caty Asher 40 - 49 Hypertension Mother Caty Asher 40 - 49 Anesthesia problems Mother Caty Asher 40 - 49 Asthma Mother Caty Asher 30 - 39 Motion Sickness Mother Caty Asher 20 - 29 Arthritis Maternal Grandmother Michell Lincoln 60 - 69 [4] Allergies Allergen Reactions Lisinopril Other and Unknown Neck pain Naproxen Other PALPITATIONS Adhesive Tape-Silicones Hives Antihistamines - Ethylenediamine Other Diphenhydramine Other Causes Panic Attacks Morphine Hives and Itching Sertraline Palpitations Topiramate Palpitations H&P reviewed. The patient was examined and there are no changes to the H&P. Source Note - SUKHWINDER Martinez - 12/25/2024 9:15 AM EDT Images from the original note were not included. CPM/PAT Evaluation Name: Michell Wooten (Michell Ponce) /Age: 509/24/1975/49 y.o. Visit Type: In-Person Chief Complaint: Perioperative visit HPI 49 y/o female scheduled for Mitral Valve Repair on 01/09/25 secondary to Mitral valve insufficiency, unspecified etiology with Dr. GORDON ARMSTRONG who referred to CPM. Presents to CPM today for perioperative risk stratification and optimization. PMHX includes abnormal uterine bleeding, anemia, anxiety, depression, asthma, atrial fibrillation, atrial tachycardia, bipolar affective, cardiomyopathy, dizziness, GERD, metabolic syndrome, PTSD, schizophrenia, seizure disorder and headaches. Medical History[1] Surgical History[2] Patient reports that she is not currently sexually active and has had partner(s) who are female and male. She reports using the following methods of control/protection: Abstinence and Female Sterilization. Family History[3] Allergies[4] Prior to Admission medications Not on File PAT ROS: Constitutional: neg Neuro/Psych: neg Eyes: use of corrective lenses Ears: neg Nose: neg Mouth: neg Throat: neg Neck: neg Cardio: neg ZAVALA (with anxiety, comes and goes) Respiratory: neg Endocrine: neg GI: constipation : neg Musculoskeletal: Hematologic: bruises/bleeds easily Skin: neg Physical Exam Vitals reviewed. Constitutional: Appearance: Normal appearance. She is obese. HENT: Head: Normocephalic. Nose: Nose normal. Mouth/Throat: Pharynx: Oropharynx is clear. Eyes: Pupils: Pupils are equal, round, and reactive to light. Comments: Corrective lenses on Cardiovascular: Rate and Rhythm: Normal rate. Pulses: Normal pulses. Heart sounds: Normal heart sounds. Pulmonary: Effort: Pulmonary effort is normal. Breath sounds: Normal breath sounds. Genitourinary: Comments: Not examined Musculoskeletal: General: Normal range of motion. Cervical back: Normal range of motion. Skin: General: Skin is warm and dry. Neurological: General: No focal deficit present. Mental Status: She is alert and oriented to person, place, and time. Psychiatric: Thought Content: Thought content normal. Judgment: Judgment normal. Comments: Appears anxious PAT AIRWAY: Airway: Mallampati:: II TM distance:: >3 FB Neck ROM:: Full upper dentures and lower dentures Visit Vitals BP (!) 134/91 Pulse 74 Temp 36.2 C (97.1 F) Ht 1.753 m (5' 9) Wt 102 kg (224 lb 8 oz) SpO2 98% BMI 33.15 kg/m Smoking Status Former BSA 2.23 m DASI Risk Score Flowsheet Row Pre-Admission Testing from 12/25/2024 in [facility] Questionnaire Series Submission from 11/28/2024 in [facility] OR with Generic Provider Mychart Can you take care of yourself (eat, dress, bathe, or use toilet)? 2.75 filed at 12/25/2024 0937 2.75 filed at 11/28/2024 1408 Can you walk indoors, such as around your house? 1.75 filed at 12/25/2024 0937 1.75 filed at 11/28/2024 1408 Can you walk a block or two on level ground? 2.75 filed at 12/25/2024 0937 2.75 filed at 11/28/2024 1408 Can you climb a flight of stairs or walk up a hill? 5.5 filed at 12/25/2024 0937 5.5 filed at 11/28/2024 1408 Can you run a short distance? 0 filed at 12/25/202437 0 filed at 11/28/2024 1408 Can you do light work around the house like dusting or washing dishes? 2.7 filed at 12/25/2024 0937 2.7 filed at 11/28/2024 1408 Can you do moderate work around the house like vacuuming, sweeping floors or carrying groceries? 3.5 filed at 12/25/2024 0937 3.5 filed at 11/28/2024 1408 Can you do heavy work around the house like scrubbing floors or lifting and moving heavy furniture? 0 filed at 12/25/2024 0937 0 filed at 11/28/2024 1408 Can you do yard work like raking leaves, weeding or pushing a mower? 0 filed at 12/25/2024 0937 0 filed at 11/28/2024 1408 Can you have sexual relations? 0 filed at 12/25/202437 0 filed at 11/28/2024 1408 Can you participate in moderate recreational activities like golf, bowling, dancing, doubles tennis or throwing a baseball or football? 0 filed at 12/25/2024 0937 0 filed at 11/28/2024 1408 Can you participate in strenous sports like swimming, singles tennis, football, basketball, or skiing? 0 filed at 12/25/2024 0937 0 filed at 11/28/2024 1408 DASI SCORE 18.95 filed at 12/25/2024 0937 18.95 filed at 11/28/2024 1408 METS Score (Will be calculated only when all the questions are answered) 5.1 filed at 12/25/2024 0937 5.1 filed at 11/28/2024 1408 Caprini DVT Assessment Flowsheet Row Pre-Admission Testing from 12/25/2024 in [facility] DVT Score (IF A SCORE IS NOT CALCULATING, MUST SELECT A BMI TO COMPLETE) 10 filed at 12/25/2024 1004 Medical Factors Swollen legs filed at 12/25/2024 1004 Surgical Factors Major surgery planned, lasting over 3 hours filed at 12/25/2024 1004 BMI (BMI MUST BE CHOSEN) 31-40 (Obesity) filed at 12/25/2024 1004 Modified Frailty Index No data to display [id number] Stroke Risk Points Current as of just now N/A 0 to 9 Points: Last Change: N/A The [id number] risk score (Lip NEDA, et al. 2009. 2010 [employer]) quantifies the risk of stroke for a patient with atrial fibrillation. For patients without atrial fibrillation or under the age of 18 this score appears as N/A. Higher score values generally indicate higher risk of stroke. This score is not applicable to this patient. Components are not calculated. Revised Cardiac Risk Index Flowsheet Row Pre-Admission Testing from 12/25/2024 in [facility] High-Risk Surgery (Intraperitoneal, Intrathoracic,Suprainguinal vascular) 1 filed at 12/25/2024 1005 History of ischemic heart disease (History of TX, History of positive exercuse test, Current chest paint considered due to myocardial ischemia, Use of nitrate therapy, ECG with pathological Q Waves) 0 filed at 12/25/2024 1005 History of congestive heart failure (pulmonary edemia, bilateral rales or S3 gallop, Paroxysmal nocturnal dyspnea, CXR showing pulmonary vascular redistribution) 0 filed at 12/25/2024 1005 History of cerebrovascular disease (Prior TIA or stroke) 0 filed at 12/25/2024 1005 Pre-operative insulin treatment 0 filed at 12/25/2024 1005 Pre-operative creatinine>2 mg/dl 0 filed at 12/25/2024 1005 Revised Cardiac Risk Calculator 1 filed at 12/25/2024 1005 Apfel Simplified Score Flowsheet Row Pre-Admission Testing from 12/25/2024 in [facility] Smoking status 1 filed at 12/25/2024 1011 History of motion sickness or PONV 0 filed at 12/25/2024 1011 Use of postoperative opioids 1 filed at 12/25/2024 1011 Gender - Female 1=Yes filed at 12/25/2024 1011 Apfel Simplified Score Calculator 3 filed at 12/25/2024 1011 Risk Analysis Index Results This Encounter No data found in the last 10 encounters. Stop Bang Score Flowsheet Row Pre-Admission Testing from 12/25/2024 in [facility] Questionnaire Series Submission from 11/28/2024 in [facility] OR with Generic Provider Valarie Do you snore loudly? 0 filed at 12/25/2024 0937 0 filed at 11/28/2024 1408 Do you often feel tired or fatigued after your sleep? 0 filed at 12/25/2024 0937 0 filed at 11/28/2024 1408 Has anyone ever observed you stop breathing in your sleep? 0 filed at 12/25/2024 0937 0 filed at 11/28/2024 1408 Do you have or are you being treated for high blood pressure? 0 filed at 12/25/2024 0937 0 filed at 11/28/2024 1408 Recent BMI (Calculated) 0 filed at 12/25/2024 0937 0 filed at 11/28/2024 1408 Age older than 50 years old? 0=No filed at 12/25/2024 0937 0=No filed at 11/28/2024 1408 Is your neck circumference greater than 17 inches (Male) or 16 inches (Female)? 1 filed at 12/25/2024 0937 -- Gender - Male 0=No filed at 12/25/2024 0937 0=No filed at 11/28/2024 1408 Prodigy: High Risk Total Score: 0 ARISCAT Score for Postoperative Pulmonary Complications Flowsheet Row Pre-Admission Testing from 12/25/2024 in [facility] Age Calculated Score 0 filed at 12/25/2024 1011 Preoperative SpO2 0 filed at 12/25/2024 1011 Respiratory infection in the last month Either upper or lower (i.e., URI, bronchitis, pneumonia), with fever and antibiotic treatment 0 filed at 12/25/2024 1011 Preoperative anemia (Hgb less than 10 g/dl) 0 filed at 12/25/2024 1011 Surgical incision 24 filed at 12/25/2024 1011 Duration of surgery 23 filed at 12/25/2024 1011 Emergency Procedure 0 filed at 12/25/2024 1011 ARISCAT Total Score 47 filed at 12/25/2024 1011 Dany Perioperative Risk for Myocardial Infarction or Cardiac Arrest (PRATIMA) No data to display Patient Specialist/PCP: Cardiac Surgery - Gordon Armstrong MD Cardiology - [place]- Kim Dejesus APRN- LEIF Assessment and Plan: Anesthesia The patient notes anesthesia complications in the past related to patient states she woke up after surgery and could not take a deep breath in, states she couldn't remember how, could hear people telling her to take a breath but was unable to, had severe anxiety afterwards. - States mom had problems with anesthesia, hypotension Airway No documented or reported history of airway difficulty. Neurology #Anxiety, depression, PTSD, panic disorder - Sees therapist, medicated on Ativan (continue) #Migraines, headaches - Takes OTC oral analgesics as needed #H/o seizures prior to pacemaker placement, has not had a seizure since. Not requiring antiepileptic medication The patient is at increased risk for postoperative delirium secondary to depression. The patient is at increased risk for perioperative stroke secondary to cardiac disease, female gender, general anesthesia, operative time >2.5 hours, cardiac or emergency surgery. HEENT No diagnoses or significant findings on chart review or clinical presentation and evaluation. Cardiovascular #Mitral regurgitation, cardiomyopathy EF 50-55% and ICD - Patient states she is supposed to be taking Furosemide and Metoprolol, patient states she has not been taking these medications - Patient will need device interrogation day of surgery BP: 134/91 Cardiology Evaluation The patient follows with cardiology, Dr. Mann at [facility]. Per note, follow up after recent JOAQUÍN, patient has a past medical history of cardiomyopathy, mitral valve regurgitation and ICD placement. Admits to having dizziness and SOB. Cardiac Cath; 11/16/24 JOAQUÍN; 10/31/24 ECG 11/16/24: V Paced Complexes, Right bundle branch block METS The patient's functional capacity is greater than 4 METS. RCRI The patient meets 1 RCRI criteria and therefore has a 6% risk of major adverse cardiac complications. PRATIMA score which indicates a 1.4% risk of intraoperative or 30-day postoperative MACE (major adverse cardiac event). Patient is scheduled for cardiac surgery. Preoperative evaluation is complete pending results of MRSA, UA w/ reflex, CRP, Coag, T/s, CBC w/ diff, CMP and CXR Pulmonary #Coughing induced asthma as a child, no issues as an adult. No recent URI's No significant findings on chart review or clinical presentation and evaluation. ERAS patient with incentive spirometry given preop. Patient instruction sheet for incentive spirometry given. STOP BANG 1, which places patient at low risk for having MARKO. ARISCAT 47, High, 42.1% risk of in-hospital postoperative pulmonary complications PRODIGY 0, low risk of respiratory depression episode. Patient given PI sheet for preoperative deep breathing exercises. Encourage incentive spirometry in the postoperative period as deemed necessary. Endocrine #Multinodular goiter - Patient has seen Luz Elena Bella at [facility], per note, I have offered US guided FNA of right thyroid nodule. I have explained procedure to patient. She does not want to go through with procedure. I have recommended follow up US in 1 year as per radiologist report and this can be done with her PCP. US thyroid 08/21/2023 Nodule #1 Location: Right midpole Size: 2.5 x 1.8 x 1.5 cm ; similar to the prior. ACR Recommendation: Follow-up imaging at 1, 3 and 5 years is recommended. Nodule #2 Location: Left midpole Size: 7 x 6 x 5 mm ; similar to the prior. ACR Recommendation: No FNA or further imaging is advised. #Metabolic syndrome X Gastrointestinal #GERD - Takes OTC Tums as needed #Hiatal hernia, intermittent pain #Constipation Eat 10- 0, self-perceived oropharyngeal dysphagia scale (0-40) Genitourinary No diagnoses or significant findings on chart review or clinical presentation and evaluation. Renal No renal diagnoses or significant findings on chart review or clinical presentation and evaluation. DPS 0-1 low risk for perioperative acute kidney injury. Hematology #H/o anemia requiring iron transfusions in 2021, last hemoglobin 13.8 on 12/25/24 Caprini score 10, high risk of perioperative VTE. Patient instructed to ambulate as soon as possible postoperatively to decrease thromboembolic risk. Initiate mechanical DVT prophylaxis as soon as possible and initiate chemical prophylaxis when deemed safe from a bleeding standpoint post surgery. Transfusion Evaluation A type and screen was obtained given the likelihood for perioperative transfusion of blood or blood products. Musculoskeletal #Arthritis in bilateral hands ID No diagnoses or significant findings on chart review or clinical presentation and evaluation. MRSA screening obtained. Prescriptions and instructions given for Hibiclens and Peridex. Diagnostic Results CXR 12/25/24: 1. No evidence of acute cardiopulmonary process. Recent Results (from the past 4 weeks) Comprehensive Metabolic Panel Collection Time: 12/25/24 10:18 AM Result Value Ref Range Glucose 91 74 - 99 mg/dL Sodium 140 136 - 145 mmol/L Potassium 4.1 3.5 - 5.3 mmol/L Chloride 107 98 - 107 mmol/L Bicarbonate 25 21 - 32 mmol/L Anion Gap 12 10 - 20 mmol/L Urea Nitrogen 14 6 - 23 mg/dL Creatinine 0.81 0.50 - 1.05 mg/dL eGFR 89 >60 mL/min/1.73m*2 Calcium 8.8 8.6 - 10.6 mg/dL Albumin 4.1 3.4 - 5.0 g/dL Alkaline Phosphatase 67 33 - 110 U/L Total Protein 6.4 6.4 - 8.2 g/dL AST 17 9 - 39 U/L Bilirubin, Total 0.5 0.0 - 1.2 mg/dL ALT 16 7 - 45 U/L CBC and Auto Differential Collection Time: 12/25/24 10:18 AM Result Value Ref Range WBC 5.3 4.4 - 11.3 x10*3/uL nRBC 0.0 0.0 - 0.0 /100 WBCs RBC 4.91 4.00 - 5.20 x10*6/uL Hemoglobin 13.8 12.0 - 16.0 g/dL Hematocrit 43.2 36.0 - 46.0 % MCV 88 80 - 100 fL MCH 28.1 26.0 - 34.0 pg MCHC 31.9 (L) 32.0 - 36.0 g/dL RDW 13.0 11.5 - 14.5 % Platelets 177 150 - 450 x10*3/uL Neutrophils % 65.9 40.0 - 80.0 % Immature Granulocytes %, Automated 0.2 0.0 - 0.9 % Lymphocytes % 24.6 13.0 - 44.0 % Monocytes % 8.1 2.0 - 10.0 % Eosinophils % 0.6 0.0 - 6.0 % Basophils % 0.6 0.0 - 2.0 % Neutrophils Absolute 3.49 1.20 - 7.70 x10*3/uL Immature Granulocytes Absolute, Automated 0.01 0.00 - 0.70 x10*3/uL Lymphocytes Absolute 1.30 1.20 - 4.80 x10*3/uL Monocytes Absolute 0.43 0.10 - 1.00 x10*3/uL Eosinophils Absolute 0.03 0.00 - 0.70 x10*3/uL Basophils Absolute 0.03 0.00 - 0.10 x10*3/uL Coagulation Screen Collection Time: 12/25/24 10:18 AM Result Value Ref Range Protime 11.2 9.8 - 12.4 seconds INR 1.0 0.9 - 1.1 aPTT 29 26 - 36 seconds C-Reactive Protein Collection Time: 12/25/24 10:18 AM Result Value Ref Range C-Reactive Protein 0.81 <1.00 mg/dL Staphylococcus aureus/MRSA colonization, Culture Collection Time: 12/25/24 10:18 AM Specimen: Nares/Axilla/Groin; Swab Result Value Ref Range Staph/MRSA Screen Culture No Staphylococcus aureus isolated Urinalysis with Reflex Culture and Microscopic Collection Time: 12/25/24 10:18 AM Result Value Ref Range Color, Urine Colorless (N) Light-Yellow, Yellow, Dark-Yellow Appearance, Urine Clear Clear Specific Rio, Urine 1.010 1.005 - 1.035 pH, Urine 6.0 5.0, 5.5, 6.0, 6.5, 7.0, 7.5, 8.0 Protein, Urine NEGATIVE NEGATIVE, 10 (TRACE), 20 (TRACE) mg/dL Glucose, Urine Normal Normal mg/dL Blood, Urine NEGATIVE NEGATIVE mg/dL Ketones, Urine NEGATIVE NEGATIVE mg/dL Bilirubin, Urine NEGATIVE NEGATIVE mg/dL Urobilinogen, Urine Normal Normal mg/dL Nitrite, Urine NEGATIVE NEGATIVE Leukocyte Esterase, Urine NEGATIVE NEGATIVE Extra Urine Brewster Tube Collection Time: 12/25/24 10:18 AM Result Value Ref Range Extra Tube Type And Screen Is this order related to or an upcoming surgery? Yes; Where will this surgery/delivery be performed? [facility]; What is the date of the surgery? 01/09/2025; Has this patient ever had a transfusion? Unknown; H... Collection Time: 12/25/24 10:19 AM Result Value Ref Range ABO TYPE A Rh TYPE POS ANTIBODY SCREEN NEG - Labs and diagnostic testing reviewed on 12/25/24 -Preoperative medication instructions were provided and reviewed with the patient. Any additional testing or evaluation was explained to the patient. NPO Instructions were discussed, and the patient's questions were answered prior to conclusion of this encounter. Patient verbalized understanding of preoperative instructions. After Visit Summary given. [1] Past Medical History: Diagnosis Date Abnormal uterine bleeding (AUB) Adverse effect of anesthesia over 10 years ago at [facility] in [place]. Once when I was under general anesthesia, I was woken after and I could not remember how to take a breath or I could not inhale and it terrified me. I had massive anxiety over this for days. I could hear the person saying to breathe but I couldn't. Anemia 2021 From severe uterine bleeding, had dnc and ablation of uterus. 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 COVID-19 2021 Once Depression 1994 to ongoing Disease of thyroid gland 2022 enlarged thyroid and thyroid nodule Dizziness Ongoing I get dizziness sometimes Dysfunctional uterine bleeding 2021 had dnc and ablation for severe bleeding and anemia Easy bruising Ongoing Fibroid 2021 GERD (gastroesophageal reflux disease) 2023 I was diagnosed from endoscopy Gestational diabetes 1994 first child Heart failure Was in Heart Failure until I got the Accounting Intern-d pacer combo Heart failure 9816-2332 Was in Heart Failure until I got the Accounting Intern-d pacer combo Hiatal hernia 2023 Metabolic disease 1999 Metabolic syndrome X Neuromuscular disorder (Multi) 2021 periodic limb movement disorder Obesity Ongoing Pacemaker First Implanted in 1993 I think Current Accounting Intern-d pacer Implanted 07/19/20 First Implanted at 16 now I have a staff accountant-d pace combo Palpitations Ongoing I get these often Personal history of other mental and behavioral disorders since I was 19 to ongoing I have severe panic disorder and ptsd Platelet disorder (Multi) Early I was told I have larger red blood cells. Not sure if this is still correct. PTSD (post-traumatic stress disorder) 1997 to I am in weekly therapy for my mental health Schizophrenia 1999 non medicated Schizo effective Seizure disorder (Multi) 1992 Before pacemaker implantation I had seizures Severe mitral regurgitation Shortness of breath Ongoing Yes I feel short of breath a lot Vertigo 2020 to ongoing I do get vertigo occasionally, sometimes severe [2] Past Surgical History: Procedure Laterality Date CARDIAC CATHETERIZATION CARDIAC DEFIBRILLATOR PLACEMENT SECTION, LOW TRANSVERSE 1994, , 98 3 children COLONOSCOPY 2023 Through [facility] COLPOSCOPY 2021 [facility] DILATION AND CURETTAGE OF UTERUS 2021 ENDOMETRIAL ABLATION 2021 HYSTEROSCOPY INSERT / REPLACE / REMOVE PACEMAKER 07/19/2020 Wires were implanted in 2008 and 2012 ROLLER PRESSER OPERATOR-d / Pacemaker Implant TUBAL LIGATION 1997 After last child was born in [place]PPER GASTROINTESTINAL ENDOSCOPY 2023 Through [facility] [3] Family History Problem Relation Name Age of Onset Alcohol abuse Father Curt Rebolledo Sr. 40 - 49 Heart disease Father Curt Rebolledo Sr. 50 - 59 Cancer Mother Caty Asher 40 - 49 Hypertension Mother Caty MaryanneBianca Asher 40 - 49 Anesthesia problems Mother Caty MBianca Asher 40 - 49 Asthma Mother Caty MaryanneBianca Asher 30 - 39 Motion Sickness Mother Caty MaryanneBianca Asher 20 - 29 Arthritis Maternal Grandmother Michell Lincoln 60 - 69 [4] Allergies Allergen Reactions Lisinopril Other and Unknown Neck pain Naproxen Other PALPITATIONS Adhesive Tape-Silicones Hives Antihistamines - Ethylenediamine Other Diphenhydramine Other Causes Panic Attacks Morphine Hives and Itching Sertraline Palpitations Topiramate Palpitations documented in this encounter [facility] Work Phone: 01-05-2025 History of Presen t illness Narrative Referral from Dr. Balbuena. Michell comes to discuss treatment recommendations for mitral regurgitation. Experiencing sob. Additional history of heart block s/p ICD pacemaker, sleep apnea, Bipolar schizophrenia. Nusrat Cordero RN Patient comes to clinic to discuss treatment options for severe mitral regurgitation secondary to flail anterior mitral valve leaflet. Echocardiography demonstrates severe MR secondary to flail anterior leaflet of mitral valve. Coronary angiography does not demonstrate any significant coronary artery disease. Past medical history is notable for obesity, sleep apnea, bipolar schizophrenia, and congenital complete heart block requiring ICD pacemaker. Recommend median sternotomy, mitral valve repair. If unable to repair valve we will plan on replacing valve with a mechanical valve. Risks, benefits, and alternatives discussed with patient, who wishes to proceed. documented in this encounter [facility] Work Phone: 11-28-2024 Note . MICRO - Microbiology PROCEDURE: Blood Culture (fungal and bacterial) [*1] SOURCE: Blood BODY SITE: Arm L COLLECTED DATE/TIME: 10/31/2024 11:28 EDT RECEIVED DATE/TIME: 10/31/2024 11:40 EDT START DATE/TIME: 10/31/2024 11:41 EDT FREE TEXT SOURCE: FINAL REPORTS Final Report [] Verified Date/Time/Personnel: 11/28/2024 07:24 EDT Blood Culture with fungus: No growth at 4 weeks. PRELIMINARY REPORTS Preliminary Report [] Verified Date/Time/Personnel: 10/31/2024 13:00 EDT Culture has been received in lab and is no growth to date. Culture will be held for four weeks. Performing Locations *1: This test was performed at: [facility], [address] [place] [address], [id number] , [facility] 11-16-2024 Hospital Discharg e instructions Patient Education 11/16/2024 09:23:02 3- Heart Cath/PCI radial/groin (02/2018) (CUSTOM) (52606) HEART CATHETERIZATION/PCI (Radial/Groin) Discharge Instructions DIET Drink plenty of fluids for the next 48 hours to help your kidneys flush the heart cath dye out of your system ACTIVITY For the next 48 hours: Do not deep bend the wrist Do not use the hand/arm to support your weight when rising from a chair or bed Do not drive Do not strain May go up and down stairs CAREFULLY Someone must stay with you at home after the procedure until the morning. For the next 7 days: Do not submerse your procedure site in water Do not swim, wash dishes, or take tub baths Do not lift, push, or pull anything over 5 pounds for 5 days You may write, eat, type You may shower tomorrow WOUND CARE Keep dressing on your sites for 24 hours, then wash and dry your sites. Keep a Band-Aid on your radial procedure site for the next 3-4 days Change the Band-Aid daily or if it gets wet/soiled After 24 hours, you can leave your groin site open to air. AFTER YOU GO HOME, CALL YOUR DOCTOR FOR: Any increase in bruising or tenderness from the procedure site Any redness, pus, or other signs of infection at the site A temperature above 100.5 Severe pain at the site DIAL 911 AND RETURN TO THE HOSPITAL FOR: Any bleeding from the procedure site. The site may be bruised or tender, but it should not be bleeding at any time. If your site begins to bleed, hold firm pressure on it and dial 911 to return to the hospital Any increase in swelling at the procedure site. An increase in swelling could mean the area is bleeding under the skin. Hold firm pressure to the site and dial 911 to return to the hospital Document Released: 04/26/2006 Document Revised: 04/12/2013 Document Reviewed: 04/27/2014 ExitCare Patient Information 2015 [employer]. This information is not intended to replace advice given to you by your health care provider. Make sure you discuss any questions you have with your health care provider. 11/16/2024 09:21:10 Moderate Conscious Sedation, Adult Moderate Conscious Sedation, Adult Sedation is the use of medicines to promote relaxation and relieve discomfort and anxiety. Moderate conscious sedation is a type of sedation. Under moderate conscious sedation, you are less alert than normal, but you are still able to respond to instructions, touch, or both. Moderate conscious sedation is used during short medical and dental procedures. It is milder than deep sedation, which is a type of sedation under which you cannot be easily woken up. It is also milder than general anesthesia, which is the use of medicines to make you unconscious. Moderate conscious sedation allows you to return to your regular activities sooner. Tell a health care provider about: Any allergies you have. All medicines you are taking, including vitamins, herbs, eye drops, creams, and zwoj-qjx-zmotlcm medicines. Use of steroids (by mouth or creams). Any problems you or family members have had with sedatives and anesthetic medicines. Any blood disorders you have. Any surgeries you have had. Any medical conditions you have, such as sleep apnea. Whether you are or may be . Any use of cigarettes, alcohol, marijuana, or street drugs. What are the risks? Generally, this is a safe procedure. However, problems may occur, including: Getting too much medicine (oversedation). Nausea. Allergic reaction to medicines. Trouble breathing. If this happens, a breathing tube may be used to help with breathing. It will be removed when you are awake and breathing on your own. Heart trouble. Lung trouble. What happens before the procedure? Staying hydrated Follow instructions from your health care provider about hydration, which may include: Up to 2 hours before the procedure you may continue to drink clear liquids, such as water, clear fruit juice, black coffee, and plain tea. Eating and drinking restrictions Follow instructions from your health care provider about eating and drinking, which may include: 8 hours before the procedure stop eating heavy meals or foods such as meat, fried foods, or fatty foods. 6 hours before the procedure stop eating light meals or foods, such as toast or cereal. 6 hours before the procedure stop drinking milk or drinks that contain milk. 2 hours before the procedure stop drinking clear liquids. Medicine Ask your health care provider about: Changing or stopping your regular medicines. This is especially important if you are taking diabetes medicines or blood thinners. Taking medicines such as aspirin and ibuprofen. These medicines can thin your blood. Do not take these medicines before your procedure if your health care provider instructs you not to. Tests and exams You will have a physical exam. You may have blood tests done to show: ?How well your kidneys and liver are working. ?How well your blood can clot. General instructions Plan to have someone take you home from the hospital or clinic. If you will be going home right after the procedure, plan to have someone with you for 24 hours. What happens during the procedure? An IV tube will be inserted into one of your veins. Medicine to help you relax (sedative) will be given through the IV tube. The medical or dental procedure will be performed. What happens after the procedure? Your blood pressure, heart rate, breathing rate, and blood oxygen level will be monitored often until the medicines you were given have worn off. Do not drive for 24 hours. This information is not intended to replace advice given to you by your health care provider. Make sure you discuss any questions you have with your health care provider. Document Released: 01/19/2002 Document Revised: 04/08/2018 Document Reviewed: 08/15/2016 [employer] Patient Education 2020 [employer]Social. Follow Up Care 11/02/2024 11:14:59 With:KIM DEJESUS Address: [address] [facility] [address] [facility] [place] [address]- [phone] When:12/04/2024 11:00:00 [facility] 11-16-2024 Summary of episod e note Discharge Instructions Thank you for allowing [facility] to assist you with your healthcare needs. The following is important discharge information regarding your hospital visit. Your Care Team MIHIR GLOVER MD What to do next Scheduled Follow-Up Appointments Appointment Type When With Where Contact Information StatusCV OV 12/04/2024 11:00 AM EDT KIM DEJESUS [facility] [place] Confirmed Follow Up Appointments Follow Up with KIM DEJESUS When:12/04/2024 11:00 AM EDT Where:[address] [facility] [address] [facility] [place] [address]- [phone] The Following Activity and Diet Have Been Ordered for You Discharge Activity - Ordered -- Lifting Restricted less than 10 pounds, 11/16/24 8:24:00 EDT Discharge Diet - Ordered -- Type of Diet: Cardiac, 11/16/24 8:24:00 EDT Allergies Latex PARoxetine Unknown Topamax vomiting lisinopril Unknown morphine Itching naproxen Medications Please ask your primary doctor or pharmacist before taking any other medication not listed, including over the counter drugs, herbal medications, vitamins and or supplements as they may interact with your home medications. What How Much When Instructions Last Dose Unchanged LORazepam (LORazepam 0.5 mg oral tablet) 0.5 tab(s) by mouth Once a day as needed for as needed for anxiety Please take this list to your next doctor s visit. Bring all medications you take, including over the counter medications, herbals and other supplements with you to your doctor s visit. Patients and families are reminded to discard old lists and to update any records with all medication providers or retail pharmacies. Education Materials HEART CATHETERIZATION/PCI (Radial/Groin) Discharge Instructions DIET Drink plenty of fluids for the next 48 hours to help your kidneys flush the heart cath dye out of your system ACTIVITY For the next 48 hours: Do not deep bend the wrist Do not use the hand/arm to support your weight when rising from a chair or bed Do not drive Do not strain May go up and down stairs CAREFULLY Someone must stay with you at home after the procedure until the morning. For the next 7 days: Do not submerse your procedure site in water Do not swim, wash dishes, or take tub baths Do not lift, push, or pull anything over 5 pounds for 5 days You may write, eat, type You may shower tomorrow WOUND CARE Keep dressing on your sites for 24 hours, then wash and dry your sites. Keep a Band-Aid on your radial procedure site for the next 3-4 days Change the Band-Aid daily or if it gets wet/soiled After 24 hours, you can leave your groin site open to air. AFTER YOU GO HOME, CALL YOUR DOCTOR FOR: Any increase in bruising or tenderness from the procedure site Any redness, pus, or other signs of infection at the site A temperature above 100.5 Severe pain at the site DIAL 911 AND RETURN TO THE HOSPITAL FOR: Any bleeding from the procedure site. The site may be bruised or tender, but it should not be bleeding at any time. If your site begins to bleed, hold firm pressure on it and dial 911 to return to the hospital Any increase in swelling at the procedure site. An increase in swelling could mean the area is bleeding under the skin. Hold firm pressure to the site and dial 911 to return to the hospital Document Released: 04/26/2006 Document Revised: 04/12/2013 Document Reviewed: 04/27/2014 ExitCare Patient Information 2015 [employer]. This information is not intended to replace advice given to you by your health care provider. Make sure you discuss any questions you have with your health care provider. Moderate Conscious Sedation, Adult Sedation is the use of medicines to promote relaxation and relieve discomfort and anxiety. Moderate conscious sedation is a type of sedation. Under moderate conscious sedation, you are less alert than normal, but you are still able to respond to instructions, touch, or both. Moderate conscious sedation is used during short medical and dental procedures. It is milder than deep sedation, which is a type of sedation under which you cannot be easily woken up. It is also milder than general anesthesia, which is the use of medicines to make you unconscious. Moderate conscious sedation allows you to return to your regular activities sooner. Tell a health care provider about: Any allergies you have. All medicines you are taking, including vitamins, herbs, eye drops, creams, and chba-jwn-tzhosxl medicines. Use of steroids (by mouth or creams). Any problems you or family members have had with sedatives and anesthetic medicines. Any blood disorders you have. Any surgeries you have had. Any medical conditions you have, such as sleep apnea. Whether you are or may be . Any use of cigarettes, alcohol, marijuana, or street drugs. What are the risks? Generally, this is a safe procedure. However, problems may occur, including: Getting too much medicine (oversedation). Nausea. Allergic reaction to medicines. Trouble breathing. If this happens, a breathing tube may be used to help with breathing. It will be removed when you are awake and breathing on your own. Heart trouble. Lung trouble. What happens before the procedure? Staying hydrated Follow instructions from your health care provider about hydration, which may include: Up to 2 hours before the procedure you may continue to drink clear liquids, such as water, clear fruit juice, black coffee, and plain tea. Eating and drinking restrictions Follow instructions from your health care provider about eating and drinking, which may include: 8 hours before the procedure stop eating heavy meals or foods such as meat, fried foods, or fatty foods. 6 hours before the procedure stop eating light meals or foods, such as toast or cereal. 6 hours before the procedure stop drinking milk or drinks that contain milk. 2 hours before the procedure stop drinking clear liquids. Medicine Ask your health care provider about: Changing or stopping your regular medicines. This is especially important if you are taking diabetes medicines or blood thinners. Taking medicines such as aspirin and ibuprofen. These medicines can thin your blood. Do not take these medicines before your procedure if your health care provider instructs you not to. Tests and exams You will have a physical exam. You may have blood tests done to show: ? How well your kidneys and liver are working. ? How well your blood can clot. General instructions Plan to have someone take you home from the hospital or clinic. If you will be going home right after the procedure, plan to have someone with you for 24 hours. What happens during the procedure? An IV tube will be inserted into one of your veins. Medicine to help you relax (sedative) will be given through the IV tube. The medical or dental procedure will be performed. What happens after the procedure? Your blood pressure, heart rate, breathing rate, and blood oxygen level will be monitored often until the medicines you were given have worn off. Do not drive for 24 hours. This information is not intended to replace advice given to you by your health care provider. Make sure you discuss any questions you have with your health care provider. Document Released: 01/19/2002 Document Revised: 04/08/2018 Document Reviewed: 08/15/2016 [employer] logo Patient Education 2020 [employer] Additional Information VACCINATE! IT SAVES LIVES! Members of the community who have not yet received the COVID-19 vaccine and would like to receive it can visit one of [facility] vaccine clinics. There are many vaccine clinic locations within the [facility]. For locations and available times, please visit https://gettheshot.coronavirus. [place].gov/. It is important to note that some COVID mobile vaccine clinics are held outdoors and may be canceled in rainy or stormy conditions. To learn more about pediatric vaccinations (ages 5-11), we invite you to visit the [facility] webpage. https://www.[facility].org/ pages/3335-Kltpy-Bxdkaleeusf-Fr djfyhhof-Quvac-Xrbycsetl.html To learn more about the COVID-19 vaccine, we invite you to visit the CDC website for a list of frequently asked questions.https://www.cdc.gov/c oronavirus/2019-ncov/vaccines/f aq.html [facility] Patient Portal Access Instructions: Stay connected with your healthcare team and access your personal medical information anytime with the [employer] Patient Portal. Please follow the directions below to create your [employer] account: 1.Access the email account you provided upon registration to the hospital/physician office.2.Look for an invitation email from [facility].3.Open the email and access the invitation link: Accept Invitation to [employer].4.Fill in the required mota to create your account. To access your account, visit [email or web address]. Click the blue button labeled Access Patient Portal and then log in with the username and password that you created in the steps above. You will be able to view your test results, lab results, a summary of your visits, upcoming appointments and more. There is also a convenient messaging option where you can send secure messages to your provider. In addition, you will have the ability to download any documents or summaries to your computer and/or send the information securely to a physician. Remember that your healthcare information is confidential, so carefully consider who you will allow to register on the [employer] Patient Portal for access to your information. You can also access the [employer] Patient Portal on the Blog[employer] Anywhere samuel. Simply click on Patient Portal and then log into your account. If you would like to receive a full copy of your medical records, please contact the [facility] Medical Records Department by calling [phone], Wednesday through Wednesday between 8 a.m. and 4:30 p.m. HOW TO SAFELY DISPOSE OF PRESCRIPTION MEDICATIONS Please use one of the following methods to safely dispose of your unused medications. 1.Use a drug disposal kit: the drug disposal pouch allows you to safely discard your old and unused drugs. Ask your nurse to give you one when you are discharged.2.Visit a local take-back location: Many local pharmacies and police departments have programs that collect old and unwanted prescription drugs. Call your local pharmacy or go to http://[employer]earables/3F6Wu7s to find one close to you.3.Make use of household items: Use cat litter or old coffee grounds to dispose medications if other options are not available. Mix your drugs with these household products, seal them in an airtight container and throw it into the garbage. Call [facility]: [phone] to be sure your drugs can be disposed of in this way. Some medicines may require a different approach.4.Never flush your medications down the toilet. IF YOU HAVE BEEN PRESCRIBED AN OPIOID FOR PAIN If you have been prescribed an opioid (such as hydrocodone, oxycodone or morphine), it is critical to understand the possible side effects and risks of opioid pain medications. Even when taken as directed, opioids can have several side effects including: Tolerance, meaning you might need to take more of a medication for the same pain relief. Nausea, vomiting and/or constipation. Sleepiness, dizziness, dry mouth, confusion, depression or itching. Physical dependence, meaning you have withdrawal symptoms when a medication is stopped, can develop within a few days. KNOW YOUR RESPONSIBILITIES It is important to know exactly how much and how often to take the opioid pain medications you are prescribed. Never take opioids in higher amounts or more often than prescribed. Do not combine opioids with alcohol or other drugs that cause drowsiness, such as benzodiazepines, also known as benzos, including diazepam and alprazolam, muscle relaxants or sleep aids. Never sell or share prescription opioids. This is illegal. Store opioids in a secure place and out of reach of others (including children, family, friends and visitors). The last page of this document has been signed and retained as a CHART COPY. Signatures Patient Education Materials 3- Heart Cath/PCI radial/groin (02/2018) (CUSTOM) (37211) Moderate Conscious Sedation, Adult Medication Leaflets My discharge plan and instructions have been reviewed and explained to me and INICK VIETTA M understand my current condition and have read and understand these discharge instructions. I have received a written copy of the plan/instructions. If I have questions, I am aware that I should contact my doctor. Patient/Mainframe Analyst Signature: Date/Time: Relationship to Patient: Witness Name/Signature: Date/Time: [facility] 11-16-2024 Discharge summary Date of Service 11/16/2024 Discharge Diagnosis 1. Severe MR 2. Heart failure with improved EF 3. 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 Sleep apnea 5. History of congenital complete heart block Hospital Course A 49-year-old female with PMH of severe MR [flail A2, prolapse A3], heart failure with improved EF [50 to 55%; 06/2024], status post ROLLER PRESSER OPERATOR-D, history of congenital complete heart block and sleep apnea presented for elective LHC plus RHC as a part of workup for severe MR. RHC was suggestive of CI 4.4, CO 9.6. RA 10, RV 35/4, PA 26/10 [16]. LHC was suggestive of no angiographic CAD. Patient will have a CT surgery evaluation and can be discharged home today. Allergies Latex PARoxetine Unknown Topamax vomiting lisinopril Unknown morphine Itching naproxen Consults Consult to Physician (Physician Consult) - Ordered -- 11/16/24 8:23:00 EDT, FREDRICK HUBBARD MD, Routine, Severe MR for MV procedure Objective Vitals and Measurements T: 36.6 C (Oral) HR: 68 RR: 16 BP: 130/86 SpO2: 98% HT: 176.5 cm WT: 103.8 kg Weight Dosing Weight: 103.8 kg (11/16/24) General: AAOX3, NAD HEENT: Anicteric sclera, MMM Neck: Trachea midline, no JVD appreciated CVS: RRR, normal S1/S2, no murmurs/rubs/gallops Lung: CTAB, no wheezes/rhonchi/rales Abd: Soft, NT/ND Extrem: WWP, no LE edema Skin: Warm, Intact Neuro: AAOX3, spontaneous movement of all extremities Psych: Appropriate mood & affect Code Status No qualifying data available. Admission Date 11/16/2024 Discharge Date 11/16/2024 Medications Unchanged LORazepam (LORazepam 0.5 mg oral tablet)0.5 tab(s) by mouth once a day as needed as needed for anxiety. Follow Up Follow Up with KIM DEJESUS When:12/04/2024 11:00 AM EDT Where:[address] [place] [address] [address] [facility] [place] [address]- [phone] Follow Up Appointments No qualifying data available. Follow Up Labs/Studies Discharge Labs No Follow-up Labs Discharge Studies No Follow-up Studies Discharge Diet Discharge Diet - Ordered -- Type of Diet: Cardiac, 11/16/24 8:24:00 EDT Discharge Activity Discharge Activity - Ordered -- Lifting Restricted less than 10 pounds, 11/16/24 8:24:00 EDT Condition on Discharge Stable Readmission Risk/Palliative Score No qualifying data available. Discharge Disposition Home Digitally Signed by RAMYA LANE MD on 11/16/2024 08:28 AM [facility] 11-16-2024 Note Exam Date Time Procedure Performing Provider Status 11/16/24 7:58 AM Cardiac Catheterization -CV LEAH BALBUENA MD; Auth (Verified) [id number] Note. MICRO - Microbiology PROCEDURE: Blood Culture (bacterial) [*1] SOURCE: Blood BODY SITE: Arm R COLLECTED DATE/TIME: 10/31/2024 11:28 EDT RECEIVED DATE/TIME: 10/31/2024 11:40 EDT START DATE/TIME: 10/31/2024 11:41 EDT FREE TEXT SOURCE: FINAL REPORTS Final Report [] Verified Date/Time/Personnel: 11/05/2024 11:59 EDT Blood Culture: No Growth at 5 days. PRELIMINARY REPORTS Preliminary Report [] Verified Date/Time/Personnel: 10/31/2024 13:00 EDT Culture has been received in lab and is no growth to date. Routine cultures are held for 5 days. Performing Locations *1: This test was performed at: [facility], [address] [place] [address], [place], [address]- [facility] Note* Exam Date Time Procedure Performing Provider Status 10/31/24 11:50 AM Transesophageal Echo cardiogram - CV MORGAN MCKOY MD; Auth (Verified) [id number] NoteHNO ID: [id number] Author: GILL KNIGHT APRN.GASOLINE TESTER Service: ? Author Type: Nurse Practitioner Type: Progress Notes Filed: 04/18/2024 11:12 Note Text: CC: Patient presents with: Pain: in left bottom of foot aright at the heel area. wrapping it does make it better HPI Michell Wooten is a 48 year old adult who presents today for above. Reports pain in the bottom of her left heel for a couple weeks. Described as: pulling and tightness Cause: denies injury, strenuous activities, heavy lifting Pain is aggravated by: taking the first few steps first thing in the morning or after a long period of inactivity. Pain improves the more she walks but then starts to get worse again Denies swelling, redness, bruising, numbness, tingling Treatments tried: streching, massage, ice, and compression with YUDI wrap Ever had pain like this before: no Review of Systems See HPI PAST MEDICAL HISTORY Diagnosis Date [...] 02/05/2022 Marcella ablation ICD GENERATOR CHANGE 07/19/2020 [facility] IMPLANTABLE CARDIOVERTER DEFIBRILLATOR 05/10/2009 defib/pacer- [facility], Dr Hardy LIG/TRNSXJ FLP TUBE ABDL/VAG APPR UNI/BI ALLERGIES Adhesive Tape-Silicones, Antihistamine [Diphenhydramine], Latex, Lisinopril, Morphine, Naproxen, Paxil [Paroxetine], and Serotonin MEDICATIONS omeprazole (PRILOSEC) 40 mg capsule Take 1 capsule by mouth once daily. LORazepam (ATIVAN) 0.5 mg Take 0.5 mg by mouth twice daily as needed. FAMILY HISTORY Problem Relation Age of Onset Asthma Mother Breast Cancer Mother developed age 61 other (leukemia) Mother 60 Hypertension Father Diabetes Father Coronary Artery Disease Father other (LIVER DISEASE) Father R/T ETOH ABUSE Genitourinary () Paternal Grandfather Diabetes Brother Social History Tobacco Use Smoking status: Former Current packs/day: 0.00 Average packs/day: 2.0 packs/day for 15.0 years (30.0 ttl pk-yrs) Types: Cigarettes Start date: 12/08/2002 Quit date: 12/08/2017 Years since quittin.3 Smokeless tobacco: Never Vaping Use Vaping status: Former Start date: 12/08/2017 Quit date: 01/08/2018 Substance Use Topics Alcohol use: Not Currently Drug use: Not Currently Comment: quit pot 2016. Medical Marijuana 2020. BP 110/76 Pulse 77 Wt 106.7 kg (235 lb 3.7 oz) LMP 12/29/2021 (Exact Date) SpO2 98% BMI 34.24 kg/m? Physical Exam Vitals reviewed. Constitutional: Appearance: Normal appearance. Cardiovascular: Pulses: Dorsalis pedis pulses are 2+ on the left side. Musculoskeletal: Left foot: Normal range of motion. No deformity. Feet: Feet: Left foot: Skin integrity: Skin integrity normal. Toenail Condition: Left toenails are normal. Comments: Full and painless ROM of the left foot Neurological: Mental Status: Vietta is alert. ASSESSMENT/PLAN: 1. Pain of left heel - ICD9: 729.5, ICD10: M79.672 Suspect plantar fascitis. No injury, imaging is not indicated at this time. Conservative treatment and symptom management discussed. Given handout from [email or web address] with this information along with stretching exercises. Advised patient exercises must be done consistently for effectiveness. Follow-up in 3-4 weeks if symptoms don't improve or sooner if worsening. Gill Knight APRN.GASOLINE TESTER Prescription instructions reviewed with patient as applicable. Potential red flag symptoms discussed with the patient. Reviewed appropriate action plan to take if red flag symptoms occur. Patient agreeable to treatment plan. Gill Knight APRN.[facility]10-23-2024 NotePatient Outreach (INTMMN) MICHELL WOOTEN ([id number]) 1975 F Date Time Provider Department 03/01/24 MIHIR GLOVER INTJULIA During your visit today, we recorded the following information about you: Allergies As of Date: 03/01/2024 Noted Allergy Reaction ADHESIVE TAPE-SILICONES 08/24/2006 ANTIHISTAMINE (DIPHENHYDRAMINE) 12/04/2021 14 - Other: See Comments Comments: Causes Panic Attacks LATEX 08/24/2006 LISINOPRIL 10/10/2012 14 - Other: See Comments Comments: Neck pain MORPHINE 08/09/2023 4 - Hives NAPROXEN 01/27/2005 Comments: PALPITATIONS PAXIL (PAROXETINE) 01/27/2005 Comments: PALPITATIONS SEROTONIN 12/11/2022 5 - Intolerance Date Reviewed: 09/06/2023 Reviewed by: Carlie Robins LPN - Fully Assessed Visit Diagnosis:Encounter for screening mammogram for breast cancer [Z12.31] Order(s):DREA SCREENING W RHINA [[id number]] Order #: [id number] FUTURE Prescriptions as of 03/06/2024 - omeprazole (PRILOSEC) 40 mg capsule Take 1 capsule by mouth once daily. - LORazepam (ATIVAN) 0.5 mg Take 0.5 mg by mouth twice daily as needed. 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] Headache(784.0) [R51] 10/27/2017 Unspecified schizophrenia [295.9] 11/19/2011 WEIGHT GAIN, ABNORMAL [R63.5] 06/12/2005 11/26/2015 DYSMETABOLIC SYNDROME X [E88.810] 06/12/2005 BIPOLAR (DEPRESSION) AFFECTIVE, DEPRESSED( In f*06/12/2005 11/19/2011 Congenital third degree heart block [Q24.6] 07/31/2005 BREAST NIPPLE DISCHARGE [N64.59] 03/25/2006 11/26/2015 PTSD (post-traumatic stress disorder) [F43.10] 11/19/2011 10/27/2017 Panic disorder without agoraphobia [F41.0] 11/19/2011 10/27/2017 Constipation [K59.00] 02/19/2016 ICD (implantable cardioverter-defibrillator) in*05/10/2009 Bipolar affective disorder (HCC) [F31.9] 12/01/2018 Obesity, Class I, BMI 30-34.9 [E66.811] 08/21/2020 PLMD (periodic limb movement disorder) [G47.61] 08/23/2020 Failure of implantable cardioverter-defibrillat*09/01/2012 03/26/2021 Iron deficiency anemia due to chronic blood los*11/20/2021 10/30/2022 Adenomyosis [N80.03] 12/30/2021 Abnormal uterine bleeding (AUB) [N93.9] 12/30/2021 10/30/2022 Thyroid nodule [E04.1] 01/07/2023 Blood in stool [K92.1] 08/09/2023 Gastroesophageal reflux disease without esophag*08/09/2023 Tubular adenoma of colon [D12.6] 08/20/2023 Chronic gastritis without bleeding [K29.50] 08/20/2023 Encounter Status:Closed by [employer], PRODUSER on 03/06/24[place] [address]-07-2023 Discharge summary Author Cornelius Aguiar [facility] April 15, 2023 5:30pm Note Date/Time April 15, 2023 4 :51pm [facility] Medical Records Department [address] [place] [address] Emergency Department Summary 04/15/23 MR#: [id number] Acct: [id number] Name: MICHELL WOOTEN Rep #:[id number] : 1975 47 From: Cornelius Aguiar MD PCP: Dr. Mihir Glover MD Status:R EG ER Location: ED HPI History of Present Illness Chief Complaint: Chest Other Informant: patient Narrative Narrative: Patient presents with a hot sensation around her back and chest. Patient states she never had chest pain pressure or tightness at any time. But she woke up this morning. She had what she felt as a sensation of heat wrap around her chest and upper back. No shortness of breath nausea vomiting diaphoresis. No palpitations with this. 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 She has had heart catheterizations that show normal vascular structures though. She states she does have a history of severe anxiety and will get reactions like this. This was similar but it seemed to be hotter than normal to her. She feels normal now. She states she has a lot of reasons to bevery stressed right now. [facility] Medical History Bulimia Cardiology follow-up encounter Deliberate self-cutting Easy bruising Former smoker Heartburn History of complete heart block History of echocardiogram History of edema History of pacemaker Iron deficiency anemia Marijuana use Migraine headache Panic anxiety syndrome PTSD (post-traumatic stress disorder) Restless legs Sleep apnea Wears dentures Wears glasses Home Medications ondansetron 4 mg disintegrating tablet 4 mg PO Q8H PRN PRN Nausea #10 tabs 03/19/21 [Rx Last Taken Unknown] lorazepam 0.5 mg tablet 0.5 mg PO DAILY PRN PRN Anxiety 01/30/22 [History Last Taken 02/05/22] Allergy/AdvReac Type Severity Reaction Status Date / Time sertraline [From Zoloft] Allergy Mild Other Verified 04/15/23 13:21 tramadol Allergy Nausea Verified 04/15/23 13:21 Antihistamines - AdvReac Other Verified 04/15/23 13:21 Ethylenediamine naproxen AdvReac Other Verified 04/15/23 13:21 paroxetine HCl [From Paxil] AdvReac Other Verified 04/15/23 13:21 Family History Other Cardiac defibrillator in place Surgical History History of cardiac catheterization History of implantable cardiac defibrillator (ICD) Social History Smoking Status: Current some day smoker tobacco type: cigarettes ROS ROS ED ROS Narrative A complete review of systems was performed and is negative except as documented in the history of present illness. Some specific details below. Constitutional: No recent fevers or chills. She felt fine before the event whenshe went to bed. She feels fine now. ENT: No difficulty swallowing. No swelling. No pain. No reflux symptoms. CV: See history of present illness. Respiratory: Denies dyspnea or cough. She states she thought this might be related to COVID because she was exposed to COVID a few days ago. GI: No abdominal pain. No nausea vomiting diarrhea. No blood in stool. : No frequency dysuria or hematuria. Musculoskeletal: No recent trauma. No pains. No swelling. Skin: No rash. Nondiaphoretic. She did not get flushed or hives. Neuro: No weakness or numbness. Endocrine: No polyuria or polydipsia. EXAM Physical Exam Narrative Exam Narrative: CONSTITUTIONAL: Patient is nontoxic in appearance. The patient looks comfortable. Work of breathing looks normal. HEENT: No notable trauma. Mucous membranes moist. No sinus tenderness. No indication of pain with swallowing. EYES: No conjunctival injection. No proptosis. NECK:No JVD. No stridor. CARDIOVASCULAR: Regular rate. Regular rhythm. No notable murmur. No JVD. ICD/Pacer is palpable in left upper chest RESPIRATORY: No respiratory distress. Breathing is unlabored. No wheezes. No rhonchi. No rales. No pain with a deep breath. No chest wall tenderness. Saturations are normal at 100% on room air showing no hypoxia GASTROINTESTINAL: Not distended. Bowel sounds are normal. No tenderness. GENITOURINARY: No CVA tenderness. MUSCULOSKELETAL: Atraumatic. No peripheral edema. No cord. No tenderness along the deep venous system. No asymmetry. No distended veins. NEUROLOGICAL: Patient is alert and appropriate. No focal deficit noted. SKIN: No noted rashes. No diaphoresis. PSYCHIATRIC: Patient is calm. Mood is appropriate. Const Vital Signs: 04/15/23 13:19 04/15/23 17:18 Temperature 98.1 F Temperature Source Temporal Pulse Rate 78 Respiratory Rate 16 Blood Pressure 137/80 H Blood Pressure Mean 99 Pulse Ox 100 Oxygen Delivery Method Room Air Room Air MDM MDM MDM Narrative Medical decision making narrative: Patient CBC is normal. Patient's electrolytes show no marked abnormalities. Patient's troponin is negative. Patient is currently asymptomatic, has normal exam and normal saturations with no chest pain or dyspnea I do not think an x-ray is needed. Patient had a hot sensation that was similar to but worse than her anxiety attack. Although she has a history of third-degree heart block, she has no history of cardiovascular disease. Her EKG is unchanged, her troponin is negative and her symptoms are resolved. I think she is appropriate for discharge. Lab Data Attestation: I reviewed the patient's lab results. Labs: Laboratory Results - last 24 hr 04/15/23 13:45 WBC 9.6 RBC 5.12 Hgb 14.2 Hct 43.8 MCV 85.5 MCH 27.7 MCHC 32.4 RDW Std Deviation 39.4 RDW Coeff of Hortencia 12.7 Plt Count 173 MPV 12.6 H Immature Gran % (Auto) 0.300 Neut % (Auto) 77.7 H Lymph % (Auto) 16.6 L [place] % (Auto) 4.9 Eos % (Auto) 0.1 Baso % (Auto) 0.4 Absolute Neuts (auto) 7.5 Absolute Lymphs (auto) 1.60 Nucleated RBC % 0 Sodium 139 Potassium 3.7 Chloride 108 H Carbon Dioxide 25.0 Anion Gap 6 BUN 17 Creatinine 0.87 Estim Creat Clear Calc 83.54 Est GFR (MDRD) Af Amer 89 Est GFR (MDRD) Non-Af 74 BUN/Creatinine Ratio 19.5 Glucose 103 Calcium 8.2 L Troponin I High Sens 14 EKG Initial EKG: Comments: My independent interpretation of patient's EKG shows an atriallysensed ventricularly paced rhythm. This is similar to 17 November 2021. Discharge Plan Triage Chief Complaint: Chest Other ED Provider: Cornelius Aguiar Dx/Rx/DC Orders Clinical Impression: History of anxiety, Feeling of warmness, ICD (implantable cardioverter- defibrillator) in place Instructions: ED Chest Pain, Uncertain Cause Prescriptions: No Action ondansetron [ondansetron] 4 MG tablet 4 mg PO Q8H PRN PRN (Reason: Nausea) Qty: 10 0RF lorazepam 0.5 mg tablet 0.5 mg PO DAILY PRN PRN (Reason: Anxiety) Primary Care Provider: Mihir Glover Referrals: Mihir Glover MD [Primary Care Provider] - 3-5 Days Disposition Disposition: Home, Self Care What to do if you have Problems For any increased pain, shortness of breath, bleeding, nausea or vomiting, chestpain, or any unexpected problems, contact your Primary Care Provider. Call [facility] ([phone]) or report to the closest Emergency Room. Call 911 if necessary. 04/15/23 1730 <Electronically signed by Cornelius Aguiar MD> Cosigner Signature (if applicable): CC: Dr. Mihir Glover MD ~ Signed [facility] Work Phone: [phone]) 619-362706-23-2023 Instructions* Patient Instructions* Mihir Glover MD - 10/30/2022 12:12 PM EDT Keep a headache diary. documented in this encounterKind[facility]06-23-2023 History of Present illness Narrative* Mihir Glover MD - 10/30/2022 11:49 AM EDT This note was created using NoteWriter. Subjective Michell Wooten is a 47 year old year old female who presents with complaint of chronic migraine headache(s) since puberty. Pain is located on either side of the temporal region, parietal region, and behind eye and described as excruciating, pressure, and throbbing. Individual headaches begin acutelywith expanding visual aura on the opposite side are associated with symptoms of nausea, vomiting, photophobia, phonophobia, and numbness and tingling of the arm on the side of the headache. Triggers include menstrual cycles, alcohol intake, stress, and foods such as eggs, milk, shrimp. Headaches may last for 3-4 hours and have been occuring 2-3 times a month. Symptoms have been treated with restin g in quiet dark room and minor analgesics- Tylenol and lorazepam, with better tolerance but not less duration. The patient denies weakness, slurred speech, dizziness, and fever. She denies history ofhead injury or trauma, significant caffeine intake, excessive alcohol intake, and recently beginning oral contraceptives. This is an ER follow up. She had some unusual symptoms of ear pain and dizziness with her migraine so she went to [facility] where labs and CT brain on [...] lb) LMP 12/29/2021 (Exact Date) SpO2 98% BMI32.34 kg/m Physical Exam Constitutional: Appearance: Normal appearance. [...] intact. No weakness. Coordination: Coordination is intact. Vfxetp-Noou-Spmnhe Test normal. Rapid alternating movements normal. Gait: [...] agreed to try usual migraine treatments. No neurologyreferral will be made at this time. We agreed to try abortive treatment to decrease duration and severity of headaches. - SUMATRIPTAN 100 MG TABLET Discussed medication dosage, usage, goals of therapy, and side effects. Mihir Glover MD documented in this encounterKindred [facility]04-26-2023 Instructions* Patient Instructions* Gill Linares APRN.GASOLINE TESTER - 09/02/2022 12:13 PM EDT HOME INSTRUCTIONS FOR MANAGEMENT OF CONSTIPATION NON-MEDICATION MEASURES: 1. Increase your intake of fluids daily. Try to include 8 - 8 ounce glasses per day. Sip on fluids throughout the day. 2. Add more fiber to your diet. The recommended daily amount of fiber is 20 to 35 grams. If you areincreasing your fiber intake do so slowly to [...] tried and no results. documented in this encounterKindred [facility]04-26-2023 History of Present illness Narrative* Gill Linares APRN.CNP - 09/02/2022 12:03 PM EDT CC: Patient presents with: blood in stool - 6-7 months: Constipation HPI Michell Wooten is a 46 year old female who presents today for above. Patient reports blood in her stool for the past 7 months, increasing in frequency. Sometimes it is bright red and other times it isdarker in color. She has chronic constipation and [...] (HCC) 07/31/2005 3rd degree AVB Bipolar affective ([facility]) Dr. Rios Bipolar affective disorder ([facility]) 12/01/2018 Congenital third degree heart block 07/31/2005 [...] (post-traumatic stress disorder) 11/19/2011 Follows at [facility] Schizoaffective disorder Unspecified schizophrenia Schizophrenia PAST SURGICAL HISTORY Procedure Laterality Date ANES PERMANENT TRANSVENOUS PACEMAKER INSERTION 01/09/1992 Permanent Pacemaker DELIVERY ONLY TIMES THREE D&C, DIAG AND/OR THERAPEUTIC 02/05/2022 HYSTEROSCOPY ENDOMETRIAL ABLATION 02/05/2022 Marcella ablation ICD GENERATOR CHANGE 07/19/2020 [facility] IMPLANTABLE CARDIOVERTER DEFIBRILLATOR 05/10/2009 defib/pacer- [facility], [...] plan. Gill Linares APRN.CNP documented in this encounterKindred [facility]10-10-2022 Miscellaneous Notes* Telephone Encounter - Baylee Islas RN - 02/16/2022 11:40 AM EDT Patient called and notified of benign pathology results from surgery on 02/05 at [facility] with Dr. Castro. Patient verbalizes understanding. Baylee Islas RN documented in this encounterKindred [facility]09-30-2022 Miscellaneous Notes* Telephone Encounter - Alis Marvin LPN - 02/06/2022 3:33 PM EDT Patient returned call and went over notes below from planning assistant with understanding. Patient is contacting PROMOTIONAL REPRESENTATIVE office. * Telephone Encounter - Balbina Lamas RN - 02/06/2022 3:26 PM EDT Attempted to contact patient to recommend patient to contact PROMOTIONAL REPRESENTATIVE. Left voicemail message to call office and ask for a triage nurse for message. Balbina Lamas RN * Telephone Encounter - Lashay Granda Pss - 02/06/2022 3:11 PM EDT Michell Wooten is calling Mihir Glover MD today with concern regarding Pain (Pain [...] calling: self Call patient at: at home [phone] (home) [phone] (cell) Was an appointment scheduled: No Closing statement: Symptom Call: Thank you for calling [facility], your call is very important. A nurse will call in approximately 2-4 hours during business hours. If this is an emergency, please contact 911. Lashay Granda Pss documented in this encounterKindred Hospital [facility]09-30-2022 History of Present illness Narrative* Flor Castro MD - 02/06/2022 3:09 PM EDT Patient underwent hysteroscopy D&C with endometrial ablation with Marcella device at [facility] on 02/05/2022 without complication. Pathology is pending. Flor Castro MD documented in this encounterKindred Hospital [facility]09-09-2022 Miscellaneous Notes* Telephone Encounter - Natacha Salas RN - 01/16/2022 10:21 AM EDT Received signed medical clearance letter. Patient is cleared for surgery. Letter placed in RR mailbox. Natacha Salas RN * Telephone Encounter - Huong Redding RN - 01/14/2022 11:[address] Marcella Haskins's nurse, called back. Needs surgical clearance form faxed to their office at [phone]. Form faxed. Huong Redding RN * Telephone Encounter - Huong Redding RN - 01/14/2022 11:20 AM EDT Left message at Dr. Naranjo's (patient's semiconductor testing group leader) office to call back line. RR wants to proceed with hysteroscopy, D&C, endometrial ablation and Liletta IUD insertion. Patient has IED and pacemaker. Wanted to see if okay with proceeding with surgery or if anything needs done with those priorto surgery. 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 Had pelvic US 10/28/21- reviewed, possible adenomyosis. Pap smear 2020 neg w/ neg hrhpv. Has had 3 c/s and a tubal w/ the third one in 1997. OB History T3 L3 SAB0 IAB0 Ectopic0 Multiple0 Live Births0 Medical Record Assistant History LMP: 12/09/2021, Having periods Age at Menarche: Age at First : Age at Menopause: Medical Record Assistant History Comments: Sexual Activity: Not Currently; Male; [...] ONLY TIMES THREE ICD GENERATOR CHANGE 07/19/2020 [facility] IMPLANTABLE CARDIOVERTER DEFIBRILLATOR 05/10/2009 defib/pacer- [facility], [...] N/A Flor Castro MD documented in this encounterKindred Hospital [facility]08-22-2022 History of Present illness Narrative* Christine Joseph, PUTTY REMOVER.GASOLINE TESTER - 12/29/2021 2:52 PM EDT 46 year [...] Atrial tachycardia (HCC) 2009 Atrioventricular block, complete ([facility]) 07/31/2005 3rd degree AVB Bipolar affective ([facility]) Dr. Rios Bipolar affective disorder ([facility]) 12/01/2018 Congenital third degree heart block 07/31/2005 [...] ONLY TIMES THREE ICD GENERATOR CHANGE 07/19/2020 [facility] IMPLANTABLE CARDIOVERTER DEFIBRILLATOR 05/10/2009 defib/pacer- [facility], [...] Level: 3 - Low documented in this encounterKindred Hospital [facility]08-09-2022 Miscellaneous Notes* Telephone Encounter - Shelley Briceno - 12/16/2021 12:11 PM EDT Rescheduled, patient notified and confirmed. * Telephone Encounter - Natacha Helton - 12/16/2021 9:30 AM EDT Pt had a in the family and needs to move today's treatment. Please call to r/s. documented in this encounterKindred Hospital [facility]ima08-02-2022 Miscellaneous Notes* Telephone Encounter - Huong Redding [...] send that in for her. Christine Joseph APRN.CNP * Telephone Encounter - Latasha Stallings RN - 12/09/2021 11:55 AM EDT Patient called and states that she received iron infusion yesterday. Woke up this am with severe nausea and cramping, achy feeling in back and both hands. Has Zofran for nausea and was able to eat breakfast ok. Later this am, she felt gassy and had 1 episode of diarrhea. She is calling wondering if this is a side effect of iron infusion. This nurse reviewed side effects listed on [facility] website. Patient has another iron infusion scheduled for tomorrow (12/10/21) and she is concerned about getting more due to side effects she is having now. Patient aware that I will relay this information to Christine Joseph for advisement. Patient agreeablewith this. Khalida Stallings RN documented in this encounterKindred Hospital [facility]07-28-2022 Miscellaneous Notes* Telephone Encounter - Rosana Singh - 12/04/2021 8:13 AM EDT Patient is reschuedled, aware of dates and times. Rosana Singh * Telephone Encounter - Natacha Helton - 12/03/2021 4:33 PM EDT Pt called stating she is needed to get the iron infusions back on the schedule based on her labs. documented in this encounterKindred Hospital [facility]07-27-2022 Miscellaneous Notes* Telephone Encounter - Natacha Salas [...] better. Baylee Islas RN documented in this encounterKindred Hospital [facility]07-25-2022 Miscellaneous Notes* Telephone Encounter - Baylee Islas RN - 12/01/2021 3:25 PM EDT Patient notified and voiced understanding of below from provider. Patient states she will repeat her blood work tomorrow. Baylee Islas RN * Telephone Encounter - Natacha Salas RN - 12/01/2021 1:31 PM EDT Left [...] she is feeling better. documented in this encounterKindred Hospital [facility]ima07-14-2022 Miscellaneous Notes* Telephone Encounter - Huong Redding [...] Salas RN - 11/13/2021 9:24 AM EDT patient. Patient called requesting an update for scheduling IV iron infusions. Had additional labs done on 11/11/21. Blood Management referral placed by on 11/05/21. See 11/11/21 phone note regarding patient's symptoms. Patient called today. Tearful on the phone. Having trouble sleeping, fatigued all day, having heart palpitations on occasion, and SOB upon exertion. Patient is no longer bleeding. Bleeding stopped 4 days ago. Notified patient that her message would be sent to our provider research home economist and Blood Management. Natacha Salas RN documented in this encounterKindred Hospital [facility]ima07-14-2022 Miscellaneous Notes* Telephone Encounter - Sandra Nasima - 11/20/2021 11:41 AM EDT Spoke with patient, advising how the process works re: authorization and scheduled. Sandra Del Real * Telephone Encounter - Balbina Quiñones Pss - 11/20/2021 11:21 AM EDT Patient returned call and concerned that she has not been scheduled and asking will she need to have labs drawn again prior to treatments starting. documented in this encounterKindred Hospital [facility]07-12-2022 History of Present illness Narrative* Mariza Reilly [...] (post-traumatic stress disorder) 11/19/2011 Follows at [facility] Schizoaffective disorder Unspecified schizophrenia Schizophrenia PAST SURGICAL HISTORY Procedure Laterality Date DELIVERY ONLY TIMES THREE ICD GENERATOR CHANGE 07/19/2020 [facility] IMPLANTABLE CARDIOVERTER DEFIBRILLATOR 05/10/2009 defib/pacer- [facility], Dr Hayley AVILEZ FALLOPIAN TUBE MT ANESTH,PACEMAKER INSERTION 01/09/1992 Permanent Pacemaker Other significant [...] and evaluation for treatment. documented in this encounterKindred Hospital [facility]07-05-2022 Miscellaneous Notes* Telephone Encounter - Baylee Islas [...] RM patient. Patient stopped at front end software developer today to discuss symptoms she has been [...] absence. Huong Redding RN documented in this encounterKindred [facility]06-29-2022 History of Present illness Narrative* Christine Joseph APRN.GASOLINE TESTER - 11/05/2021 10:06 AM EDT Michell Wooten is a 46 year old female who presents for problem visit AUB for 6 week(s). HPI: Patient states her period started in September and she continued to bleed for 5 weeks. On October 24 she went to [facility] ED due to the heavy bleeding. [...] L3 SAB0 IAB0 Ectopic0 Multiple0 Live Births0 Medical Record Assistant History LMP: 08/24/2020, Having periods Age at Menarche: Age at First : Age at Menopause: Medical Record Assistant History Comments: Sexual Activity: Yes; Male; TUBAL LIGATION Contraception: Surgical PAST MEDICAL HISTORY Diagnosis Date Asthma Atrial tachycardia (HCC) 2009 Atrioventricular block, complete (HCC) 07/31/2005 3rd degree AVB Bipolar affective ([facility]) Dr. Rios Bipolar affective disorder ([facility]) 12/01/2018 Congenital third degree heart block 07/31/2005 [...] ONLY TIMES THREE ICD GENERATOR CHANGE 07/19/2020 [facility] IMPLANTABLE CARDIOVERTER DEFIBRILLATOR 05/10/2009 defib/pacer- [facility], Dr Hardy LIGATE FALLOPIAN TUBE MT ANESTH,PACEMAKER INSERTION 01/09/1992 Permanent Pacemaker FAMILY HISTORY [...] external genitalia normal, normal Bartholin's glands, urethra, [place] [place]'s glands, no vulvar lesions, no cervical lesions, [...] Level: 4 - Moderate documented [facility] History of Present illness Narrative* Etta Rojo - 12/14/2017 3:28 AM EDT December 14, 2017 The electronic medical record was reviewed to determine if the proposed sleep [facility] for the Indications for Polysomnography and Related Procedures, or if the sleep study is indicated for other reasons. Indications for study: MARKO suspected with comorbid medical or sleep disorders: Heart failure or other nvlljjep-pc-qvbyms cardiac disease Sleep study to be performed: Split Study-Polysomnogram with PAP titration Special instructions: Split night study if AHI > 15. Start with 5 cmH2O then titrate per protocol Target REM/supine sleep Add EtCO2 or Transcutaneous CO2 if available Etta Rojo I have read the above protocol, edited as needed, and agree to the plan Josh Peace III, PhD, [facility] * Adarsh Talbot Pss - 12/13/2017 4:25 PM EDT December 13, 2017 An order has been received for Polysomnogram (PSG) from LORRIE Otto. [facility] Staff. Visit prep complete. Comments :No The sleep study is scheduled for 12/31. Insurance: Payor: [facility] / Plan: [facility] MEDICA[facility] / Product Type: Medicaid / Adarsh Hawthorneisabelle Psr documented in [facility] History of Past illness Narrative* Problem Noted [...] of this encounter (statuses as of 11/05/2021) [facility] of [facility] illness Narrative* Problem Noted [...] of this encounter (statuses as of 11/11/2021) [facility] of Past illness Narrative* Problem Noted Date Resolved Date Failure of implantable cardioverter-defibrillato r lead 09/01/2012 03/26/2021 Overview: Last Assessment & Plan: Underwent successful RA lead extraction and replacement yesterday, 09/01 CXR demonstrates no pneumothroax Device interrogation pending PTSD (post-traumatic stress disorder) 11/19/2011 10/27/2017 Overview: [facility] at [facility] Panic disorder without agoraphobia 11/19/2011 10/27/2017 Overview: [facility] Bipolar disorder possible, to be r/o (09/25/11) BREAST NIPPLE DISCHARGE 03/25/2006 11/26/19 16 WEIGHT GAIN, ABNORMAL 06/12/2005 11/26/2015 BIPOLAR (DEPRESSION) AFFECTI VE, DEPRESSED( In full remission) 06/12/2005 11/19/2011 Headache(784.0) 10/27/2017 Overview: Headaches Unspecified schizophrenia 2011 Overview: Schizophrenia documented as of this encounter (statuses as of 11/18/2021) [facility] of Past illness Narrative* Problem Noted [...] of this encounter (statuses as of 11/20/2021) [facility] of [facility] illness Narrative* Problem Noted [...] of this encounter (statuses as of 11/20/2021) [facility] of [facility] illness Narrative* Problem Noted [...] of this encounter (statuses as of 11/20/2021) [facility] of [facility] illness Narrative* Problem Noted [...] of this encounter (statuses as of 12/01/2021) [facility] of [facility] illness Narrative* Problem Noted [...] of this encounter (statuses as of 12/03/2021) [facility] of [facility] illness Narrative* Problem Noted [...] of this encounter (statuses as of 12/08/2021) [facility] of [facility] illness Narrative* Problem Noted [...] of this encounter (statuses as of 12/09/2021) [facility] illness Narrative* Problem Noted [...] of this encounter (statuses as of 12/10/2021) [facility] of [facility] illness Narrative* Problem Noted [...] of this encounter (statuses as of 12/16/2021) [facility] of [facility] illness Narrative* Problem Noted [...] of this encounter (statuses as of 12/18/2021) [facility] of [facility] illness Narrative* Problem Noted [...] of this encounter (statuses as of 12/22/2021) [facility] of [facility] illness Narrative* Problem Noted [...] of this encounter (statuses as of 12/29/2021) [facility] of [facility] illness Narrative* Problem Noted [...] of this encounter (statuses as of 12/30/2021) [facility] of [facility] illness Narrative* Problem Noted [...] of this encounter (statuses as of 01/19/2022) [facility] of [facility] illness Narrative* Problem Noted [...] of this encounter (statuses as of 02/06/2022) [facility] of [facility] illness Narrative* Problem Noted [...] of this encounter (statuses as of 02/06/2022) [facility] of [facility] illness Narrative* Problem Noted [...] of this encounter (statuses as of 02/06/2022) [facility] of [facility] Narrative* Problem Noted [...] of this encounter (statuses as of 02/06/2022) [facility] of [facility] Narrative* Problem Noted [...] of this encounter (statuses as of 02/06/2022) [facility] of [facility] illness Narrative* Problem Noted [...] of this encounter (statuses as of 02/06/2022) [facility] Narrative* Problem Noted [...] of this encounter (statuses as of 02/16/2022) [facility] Narrative* Problem Noted [...] of this encounter (statuses as of 05/18/2022) [facility] of [facility] Narrative* Problem Noted [...] of this encounter (statuses as of 09/02/2022) [facility] Future Appointments Appointment Date:11/07/2024 11:00:00 AM Scheduled Provider:SAHIL PICHARDO Location:[facility] Appointment Type:PC OV Sleep Consult Diagnostic Tests Pending * Blood Culture (bacterial) 10/31/24 * Blood Culture (fungal and bacterial) 10/31/24 * Complete Blood Count 10/31/24 * Sedimentation Rate Automated 10/31/24 [facility] Evaluation + Plan note Future Appointments Appointment Date:11/07/2024 11:00:00 AM Scheduled Provider:SAHIL PICHARDO Location:[facility] Appointment Type:PC OV Sleep Consult [facility] evaluation + Plan note Future Appointments Appointment Date:11/16/2024 07:30:00 AM Scheduled Provider: Location:[facility] Appointment Type:CV Procedure - Heart Lab/Hybrid OR Appointment Date:12/04/2024 11:00:00 AM Scheduled Provider:KIM DEJESUS Location:[facility] Appointment Type:CV OV [facility] Evaluation + Plan note Future Appointments Appointment Date:12/04/2024 11:00:00 AM Scheduled Provider:KIM DEJESUS Location:[facility] Appointment Type:CV OV [facility] evaluation noteNo assessment information available [facility] Work Phone: evaluation note* Diagnosis Abnormal uterine bleeding (AUB)- Primary Iron deficiency anemia due to chronic blood loss Iron deficiency anemia secondary to blood loss (chronic) Abnormal hemoglobin (Hgb) (HCC) Other hemoglobinopathies [facility]* Diagnosis Iron deficiency anemia due to chronic blood loss Iron deficiency anemia secondary to blood loss (chronic) Intestinal malabsorption, unspecified type [facility] this [facility]* Diagnosis Menorrhagia with irregular cycle- Primary Excessive or frequent menstruation [facility] this [facility]* Diagnosis Iron deficiency anemia due to chronic blood loss- Primary Iron deficiency anemia secondary to blood loss (chronic) documented [facility] this [facility]* Diagnosis Iron deficiency anemia due to chronic blood loss- Primary Iron deficiency anemia secondary to blood loss (chronic) [facility]* Diagnosis Iron deficiency anemia due to chronic blood loss- Primary Iron deficiency anemia secondary to blood loss (chronic) [facility]* Diagnosis Iron deficiency anemia due to chronic blood loss- Primary Iron deficiency anemia secondary to blood loss (chronic) Irregular uterine bleeding Irregular menstrual cycle documented [facility] this [facility]* Diagnosis Iron deficiency anemia due to chronic blood loss- Primary Iron deficiency anemia secondary to blood loss (chronic) Abnormal uterine bleeding (AUB) Adenomyosis Endometriosis of uterus [facility] Diagnosis Iron deficiency anemia due to chronic blood loss- Primary Iron deficiency anemia secondary to blood loss (chronic) Abnormal uterine bleeding (AUB) [facility]* Diagnosis Special screening for malignant neoplasms, colon documented [facility]* Diagnosis Iron deficiency anemia due to chronic blood loss Iron deficiency anemia secondary to blood loss (chronic) documented [facility]* Diagnosis Encounter for screening mammogram for breast cancer documented in this [facility]* Diagnosis Blood in stool- Primary Constipation, unspecified constipation type Anemia, unspecified type [facility]* Diagnosis Migraine with aura and without status migrainosus, not intractable- Primary Migraine with aura, without mention of intractable migraine without mention of status migrainosus [facility]* Diagnosis Mitral valve insufficiency- Primary Mitral valve disorders Mitral valve insufficiency, unspecified etiology Mitral valve insufficiency, unspecified etiology documented in this encounter [facility] Work Phone: Evaluation note* Diagnosis Mitral valve insufficiency, unspecified etiology Mitral valve insufficiency, unspecified etiology documented in this encounter [facility] Work Phone: Evaluation note* Diagnosis Implantable cardioverter-defibrillator (ICD) in situ Mitral valve insufficiency, unspecified etiology S/P MVR (mitral valve repair) Mitral valve insufficiency, unspecified etiology S/P MVR (mitral valve repair) documented in this encounter [facility] Work Phone: Evaluation note* Diagnosis Mitral valve insufficiency, unspecified etiology documented in this encounter [facility] Work Phone: Hospital course Narrative No data available for this section [facility] Hospital Discharge instructions Additional Instructions Please call the lead generation representative later today or on Wednesday to schedule close follow-up.[facility] Work Phone: Hospital [facility] instructionsWT[facility] Work Phone: Hospital Discharge instructions Additional Instructions Alternate ibuprofen and Tylenol. At this time I do not think you require antibiotics and likely this is viral in nature. If you develop a high fever, difficulty swallowing or shortness of breath or increased swelling on the right side of your throat please return to the ER for repeat evaluation. We will contact you if you require antibiotics based on your strep culture. Your initial testing was all negative including rapid strep test, influenza and COVID testWTogus [facility] Work Phone: Hospital Discharge instructions Additional Instructions You can continue to take [id number]-sbizigc Tums/Pepcid for your reflux. Please begin adding more fiber to your diet to help with the constipation. You can try Preparation H to help with your hemorrhoid discomfort.[facility] Work Phone: Hospital Discharge instructions No data available for this section [facility] Progress note No data available for this section [facility] Reason for referral (narrative)* Outpatient Procedure (Routine) - Pending Review Specialty Diagnoses / Procedures Referred By Rusty south Referred To Contact [facility] Diagnoses Abnormal uterine bleeding (AUB) Procedures ENDOMETRIAL BIOPSY ENDOMETRIAL BX W/WO ENDOCERVIX BX W/O DILAT SPX Flor Castro MD [address] [place] [address] [facility] [address] [place] [address] Referral ID Status Reason Start Date Expiration Date Visits Requested Visits Authorized [id number] Pending Review Auto-Generat ed Referral 12/30/2021 12/30/2022 1 1 [facility] for referral (narrative)* Diagnostic Procedure Only (Routine) - Pending Review Specialty Diagnoses / Procedures Referred By Rusty south Referred To Contact [facility] Diagnoses Encounter for screening mammogram for breast cancer Procedures DREA SCREENING SCREENING MAMMOGRAPHY BI 2-VIEW BREAST INC CAD Mihir Glover MD [address] [place] [address] [facility] [address] [place] [id number] Referral ID Status Reason Start Date Expiration Date Visits Requested Visits Authorized [id number] Pending Review Auto-Generat ed Referral 05/13/2022 06/12/2023 1 1 [facility] for referral (narrative)* CV Imaging (Routine) - Pending Review Specialty Diagnoses / Procedures Referred By Contac t Referred To Contact Cardiology Procedures Echocardiogram [place] [address] [facility] [place] [address] Phone: tel: fax: Referral ID Status Reason Start Date Expiration Date Visits Requested Visits Authorized [id number] Pending Review Perform Procedure 11/17/2024 11/17/2025 [address] [facility] Work Phone: reason for visit Narrative* CV Imaging (Routine) - Pending Review Specialty Diagnoses / Procedures Referred By Contac t Referred To Contact Cardiology Procedures Echocardiogram Non [place] [address] [address] [facility] [place] [address] Phone: tel: fax: Referral ID Status Reason Start Date Expiration Date Visits Requested Visits Authorized [id number] Pending Review Perform Procedure 11/17/2024 11/17/2025 [address] [facility] Work Phone: reason for visit Narrative* Imaging (Routine) - Authorized Specialty Diagnoses / Procedures Referred By Contac t Referred To Contact Radiology Diagnoses Mitral valve insufficiency, unspecified etiology Procedures XR chest 2 [place] [address] [address] [facility] [place] [address] Phone: tel: fax: Referral ID Status Reason Start Date Expiration Date Visits Requested Visits Authorized [id number] Authorized Perform Procedure 11/27/2024 11/27/2025 [address] [facility] Work Phone: Reason for visit Narrative* Auth/Cert Specialty Diagnoses / Procedures Referred By Rusty t Referred To Contact Diagnoses Mitral valve insufficiency, unspecified etiology Mitral valve insufficiency, unspecified etiology [I34.0] Procedures MT VALVULOPLASTY MITRAL VALVE W/CARDIAC BYPASS REPAIR, [place] [address] [facility] Department [place] [address] Phone: tel: fax: [facility] [place] [address] [employer] [place] [address] fax: Referral ID Status Reason Start Date Expiration Date Visits Re quested Visits Authorized [id number] [address] [facility] Work Phone: Rebccf for visit Narrative* Consultation (Routine) - Authorized Specialty Diagnoses / Procedures Referred By Rusty south Referred To Contact Pharmacy Diagnoses Mitral valve insufficiency, unspecified etiology Jeanne Castro, PUTTY REMOVER-GASOLINE TESTER [address] [facility] Department [place] [address] Phone: tel: fax: Referral ID Status Reason Start Date Expiration Date Visits Requested Visits Authorized [id number] Authorized Specialty Services Required 01/17/2025 01/17/2026 [address] [facility] Work Phone: Summary Purpose Family History No Family History Records Found Relationship Condition Age at Onset Recorded Date/T yamini Not Specified Cardiac defibrillator in place Unknown Advance Directives No Advanced Directives Records Found Advance Directive Response Recorded Date/ Time Living Will No October 24, 2021 9:03am Power of Administrative Support Clerk No October 24 9:03am Advance Directive Response Recorded Date/ Time Living Will No November 17, 2021 7:22am Power of Administrative Support Clerk No November 17 7:22am Advance Directive Response Recorded Date/ Time Living Will No June 16 11:53am Power of Administrative Support Clerk No June 16, 2022 11:53am Advance Directive Response Recorded Date/ Time Living Will No April 15 5:19pm Power of Administrative Support Clerk No April 15, 2023 5:19pm Advance Directive Response Recorded Date/ Time Living Will No July 18, 2023 3:37pm Power of Administrative Support Clerk No July 17 3:37pm Date Activated Date Inactivated Comments 01/09/2025 6:39 AM Question Answer Comments Plan of Care: Code Status Discussion Completed Decision Maker: Patient Date Activated Date Inactivated Comments 01/09/2025 6:39 AM Question Answer Comments Plan of Care: Code Status Discussion Completed Decision Maker: Patient Chief Complaint and Reason for Visit Chief Complaint VAGINAL BLEEDING X1 MONTH Chief Complaint VAGINAL BLEEDING X1 MONTH abnormal labs Chief Complaint SORE THROAT Chief Complaint chest other Chief Complaint chest other bloody stool, rectal pain, back pain Medications Administered Section Inactive Administered Medications - up to 3 most recent administrations Medication Order MAR Action Action Dose Rate Site iron sucrose 200 mg in NaCl 0.9% 100ml (VENOFER) 200 mg, INTRAVENOUS, at 400 mL/hr, Administer over 15 Minutes, ONCE, 1 dose, On Wed12/08/21 at 1000, Please conduct a 30 minute post dose observation. X 4 doses New Bag/Syringe/Bottle 12/08/2021 10:03 AM EDT 200 mg 400 mL/hr Inactive Administered Medications - up to 3 most recent administrations Medication Order Jul Action Dose Rate Site iron sucrose 200 mg [...] recent administrations Medication Order MAR Action Action Dose Rate Site iron sucrose 200 mg in NaCl 0.9% 100ml (VENOFER) 200 mg, INTRAVENOUS, at 400 mL/hr, Administer over 15 Minutes, ONCE, 1 dose, On Wed12/18/21 at 1330, Please conduct a 30 minute post dose observation. X 4 doses New Bag/Syringe/Bottle 12/18/2021 1:34 PM EDT 200 mg 400 mL/hr Inactive Administered Medications - up to 3 most recent administrations Medication Order Jul Action Dose Rate Site iron sucrose 200 mg in NaCl 0.9% 100ml (VENOFER) 200 mg, INTRAVENOUS, at 400 mL/hr, Administer over 15 Minutes, ONCE, 1 dose, On 12/22/21 at 1330, Please conduct a 30 minute post dose observation. X 4 doses New Bag/Syringe/Bottle 12/22/2021 1:21 PM EDT 200 mg 400 mL/hr Reason for Referral Specialty Diagnoses / Procedures Referred By Contac t Referred To Contact General Surgery Diagnoses Blood in stool Procedures CONSULT TO GENERAL SURGERY OFFICE/OUTPATIENT NEW HIGH MDM 60-74 MINUTES Older, JOSR Garlnad.GASOLINE TESTER [address] [place] [address] Referral ID Status Reason Start Date Expiration Date Visits Requested Visits Authorized [id number] Authorized PCP Requested Referral 09/02/2022 09/02/2023 1 1 Additional Source Comments INFORMATION SOURCE (unrecogn ized section and content) DATE CREATED AUTHOR 07/27/2020 [facility] ([place]) DATE CREATED AUTHOR AUTHOR'S ORGANIZ ATION 08/10/2023 [facility] DATE CREATED AUTHOR AUTHOR'S ORGANIZ ATION 09/13/2024 [facility] DATE CREATED AUTHOR AUTHOR'S ORGANIZ ATION 11/16/2024 [place] DATE CREATED AUTHOR AUTHOR'S ORGANIZ ATION 12/01/2024 [facility] DATE CREATED AUTHOR AUTHOR'S ORGANIZ ATION 01/17/2025 [facility] DATE CREATED AUTHOR AUTHOR'S ORGANIZ ATION 01/18/2025 [facility] DATE CREATED AUTHOR AUTHOR'S ORGANIZ ATION 01/18/2025 [facility] Goals (unrecognized section and content) Goals may be documented in a n alternate sectionGoals may be documented in an alternate sectionGoals may be documented in an alternate sectionGoals may be documented in an alternate sectionGoals may be documented in an alternate section No data available for this section No data available for this section No data available for this section No data available for this section Source Comments (unrecognize d section and content) In the event this informatio n is protected by the Federal Confidentiality of Alcohol and Drug Abuse Patient Records regulations: The Federal rules restrict any use of the information to criminally investigate or prosecute any alcohol or drug abuse patient.[facility] the event this information is protected by the Federal Confidentiality of Alcohol and Drug Abuse Patient Records regulations: The Federal rules restrict any use of the information to criminally investigate or prosecute any alcohol or drug abuse patient.[facility] the event this information is protected by the Federal Confidentiality of Alcohol and Drug Abuse Patient Records regulations: The Federal rules restrict any use of the information to criminally investigate or prosecute any alcohol or drug abuse patient.[facility]ima[facility] the event this information is protected by the Federal Confidentiality of Alcohol and Drug Abuse Patient Records regulations: The Federal rules restrict any use of the information to criminally investigate or prosecute any alcohol or drug abuse patient.[facility]ima[facility] the event this information is protected by the Federal Confidentiality of Alcohol and Drug Abuse Patient Records regulations: The Federal rules restrict any use of the information to criminally investigate or prosecute any alcohol or drug abuse patient.[facility] the event this information is protected by the Federal Confidentiality of Alcohol and Drug Abuse Patient Records regulations: The Federal rules restrict any use of the information to criminally investigate or prosecute any alcohol or drug abuse patient.[facility]ima[facility] the event this information is protected by the Federal Confidentiality of Alcohol and Drug Abuse Patient Records regulations: The Federal rules restrict any use of the information to criminally investigate or prosecute any alcohol or drug abuse patient.[facility]ima[facility] the event this information is protected by the Federal Confidentiality of Alcohol and Drug Abuse Patient Records regulations: The Federal rules restrict any use of the information to criminally investigate or prosecute any alcohol or drug abuse patient.[facility]ima[facility] the event this information is protected by the Federal Confidentiality of Alcohol and Drug Abuse Patient Records regulations: The Federal rules restrict any use of the information to criminally investigate or prosecute any alcohol or drug abuse patient.[facility]ima[facility] the event this information is protected by the Federal Confidentiality of Alcohol and Drug Abuse Patient Records regulations: The Federal rules restrict any use of the information to criminally investigate or prosecute any alcohol or drug abuse patient.[facility]ima[facility] the event this information is protected by the Federal Confidentiality of Alcohol and Drug Abuse Patient Records regulations: The Federal rules restrict any use of the information to criminally investigate or prosecute any alcohol or drug abuse patient.[facility]imaIn the event this information is protected by the Federal Confidentiality of Alcohol and Drug Abuse Patient Records regulations: The Federal rules restrict any use of the information to criminally investigate or prosecute any alcohol or drug abuse patient.[facility]imaIn the event this information is protected by the Federal Confidentiality of Alcohol and Drug Abuse Patient Records regulations: The Federal rules restrict any use of the information to criminally investigate or prosecute any alcohol or drug abuse patient.[facility]imaIn the event this information is protected by the Federal Confidentiality of Alcohol and Drug Abuse Patient Records regulations: The Federal rules restrict any use of the information to criminally investigate or prosecute any alcohol or drug abuse patient.[facility]imaIn the event this information is protected by the Federal Confidentiality of Alcohol and Drug Abuse Patient Records regulations: The Federal rules restrict any use of the information to criminally investigate or prosecute any alcohol or drug abuse patient.[facility]imaIn the event this information is protected by the Federal Confidentiality of Alcohol and Drug Abuse Patient Records regulations: The Federal rules restrict any use of the information to criminally investigate or prosecute any alcohol or drug abuse patient.[facility]imaIn the event this information is protected by the Federal Confidentiality of Alcohol and Drug Abuse Patient Records regulations: The Federal rules restrict any use of the information to criminally investigate or prosecute any alcohol or drug abuse patient.[facility]imaIn the event this information is protected by the Federal Confidentiality of Alcohol and Drug Abuse Patient Records regulations: The Federal rules restrict any use of the information to criminally investigate or prosecute any alcohol or drug abuse patient.[facility]imaIn the event this information is protected by the Federal Confidentiality of Alcohol and Drug Abuse Patient Records regulations: The Federal rules restrict any use of the information to criminally investigate or prosecute any alcohol or drug abuse patient.[facility]imaIn the event this information is protected by the Federal Confidentiality of Alcohol and Drug Abuse Patient Records regulations: The Federal rules restrict any use of the information to criminally investigate or prosecute any alcohol or drug abuse patient.[facility]imaIn the event this information is protected by the Federal Confidentiality of Alcohol and Drug Abuse Patient Records regulations: The Federal rules restrict any use of the information to criminally investigate or prosecute any alcohol or drug abuse patient.[facility]imaIn the event this information is protected by the Federal Confidentiality of Alcohol and Drug Abuse Patient Records regulations: The Federal rules restrict any use of the information to criminally investigate or prosecute any alcohol or drug abuse patient.[facility]imaIn the event this information is protected by the Federal Confidentiality of Alcohol and Drug Abuse Patient Records regulations: The Federal rules restrict any use of the information to criminally investigate or prosecute any alcohol or drug abuse patient.[facility]imaIn the event this information is protected by the Federal Confidentiality of Alcohol and Drug Abuse Patient Records regulations: The Federal rules restrict any use of the information to criminally investigate or prosecute any alcohol or drug abuse patient.[facility]imaIn the event this information is protected by the Federal Confidentiality of Alcohol and Drug Abuse Patient Records regulations: The Federal rules restrict any use of the information to criminally investigate or prosecute any alcohol or drug abuse patient.[facility]imaIn the event this information is protected by the Federal Confidentiality of Alcohol and Drug Abuse Patient Records regulations: The Federal rules restrict any use of the information to criminally investigate or prosecute any alcohol or drug abuse patient.[facility]imaIn the event this information is protected by the Federal Confidentiality of Alcohol and Drug Abuse Patient Records regulations: The Federal rules restrict any use of the information to criminally investigate or prosecute any alcohol or drug abuse patient.[facility]imaIn the event this information is protected by the Federal Confidentiality of Alcohol and Drug Abuse Patient Records regulations: The Federal rules restrict any use of the information to criminally investigate or prosecute any alcohol or drug abuse patient.[facility]imaIn the event this information is protected by the Federal Confidentiality of Alcohol and Drug Abuse Patient Records regulations: The Federal rules restrict any use of the information to criminally investigate or prosecute any alcohol or drug abuse patient.[facility]imaIn the event this information is protected by the Federal Confidentiality of Alcohol and Drug Abuse Patient Records regulations: The Federal rules restrict any use of the information to criminally investigate or prosecute any alcohol or drug abuse patient.[facility]imaIn the event this information is protected by the Federal Confidentiality of Alcohol and Drug Abuse Patient Records regulations: The Federal rules restrict any use of the information to criminally investigate or prosecute any alcohol or drug abuse patient.[facility]imaIn the event this information is protected by the Federal Confidentiality of Alcohol and Drug Abuse Patient Records regulations: The Federal rules restrict any use of the information to criminally investigate or prosecute any alcohol or drug abuse patient.[facility]imaIn the event this information is protected by the Federal Confidentiality of Alcohol and Drug Abuse Patient Records regulations: The Federal rules restrict any use of the information to criminally investigate or prosecute any alcohol or drug abuse patient.[facility]imaIn the event this information is protected by the Federal Confidentiality of Alcohol and Drug Abuse Patient Records regulations: The Federal rules restrict any use of the information to criminally investigate or prosecute any alcohol or drug abuse patient.[facility]imaIn the event this information is protected by the Federal Confidentiality of Alcohol and Drug Abuse Patient Records regulations: The Federal rules restrict any use of the information to criminally investigate or prosecute any alcohol or drug abuse patient.[facility]imaIn the event this information is protected by the Federal Confidentiality of Alcohol and Drug Abuse Patient Records regulations: The Federal rules restrict any use of the information to criminally investigate or prosecute any alcohol or drug abuse patient.[facility]imaIn the event this information is protected by the Federal Confidentiality of Alcohol and Drug Abuse Patient Records regulations: The Federal rules restrict any use of the information to criminally investigate or prosecute any alcohol or drug abuse patient.[facility] Reason for Visit (unrecogniz ed section and content) Reason Comments Non-Chemotherapy Treatment Specialty Diagnoses / Procedures Referred By Rusty south Referred To Contact Diagnoses Iron deficiency anemia due to chronic blood loss Procedures IRON SUCROSE INJECTION PER 1 MG Christine Joseph APRN.GASOLINE TESTER [address] [place] [address] [facility] [address] [place] [address] Referral ID Status Reason Start Date Expiration Date V isits Requested Visits Authorized [id number] Authorized 11/20/2021 05/09/2022 99 99 Reason Comments [...] Care Teams (unrecognized sec tion and content) Cryogenic Transport Driver Relationship Specialty Start Date End Date Mihir Glover MD [address] [facility] [place] [address] PCP - General Internal Medicine 02/19/16 Mauricio Greenfield, DO Primary Staff Physician Cardiology 07/26/18 Cryogenic Transport Driver Relationship Specialty Start Date End Date Mihir Glover MD [address] [place] [address] PCP - General Internal Medicine 02/19/16 Mauricio Greenfield DO Primary Staff Physician Cardiology 07/26/18 Cryogenic Transport Driver Relationship Specialty Start Date End Date Mihir Glover MD [address] [facility] [place] [address] PCP - General Internal Medicine 02/19/16 Mauricio Greenfield, DO Primary Staff Physician Cardiology 07/26/18 Cryogenic Transport Driver Relationship Specialty Start Date End Date Mihir Glover MD [address] [place] [address] PCP - General Internal Medicine 02/19/16 Mauricio Greenfield, DO Primary Staff Physician Cardiology 07/26/18 Cryogenic Transport Driver Relationship Specialty Start Date End Date Mihir Glover MD [address] [facility] [place] [address] PCP - General Internal Medicine 02/19/16 Mauricio Greenfield, DO Primary Staff Physician Cardiology 07/26/18 Cryogenic Transport Driver Relationship Specialty Start Date End Date Mihir Glover MD [address] [place] [address] PCP - General Internal Medicine 02/19/16 Mauricio Greenfield, DO Primary Staff Physician Cardiology 07/26/18 Cryogenic Transport Driver Relationship Specialty Start Date End Date Mihir Glover MD [address] [place] [address] PCP - General Internal Medicine 02/19/16 Mauricio Greenfield, DO Primary Staff Physician Cardiology 07/26/18 Cryogenic Transport Driver Relationship Specialty Start Date End Date Mihir Glover MD [address] [facility] [place] [address] PCP - General Internal Medicine 02/19/16 Mauricio Greenfield, DO Primary Staff Physician Cardiology 07/26/18 Cryogenic Transport Driver Relationship Specialty Start Date End Date Mihir Glover MD [address] [place] [address] PCP - General Internal Medicine 02/19/16 Mauricio Greenfield, DO Primary Staff Physician Cardiology 07/26/18 Cryogenic Transport Driver Relationship Specialty Start Date End Date Mihir Glover MD [address] [facility] [place] [address] PCP - General Internal Medicine 02/19/16 Mauricio Greenfield, DO Primary Staff Physician Cardiology 07/26/18 Cryogenic Transport Driver Relationship Specialty Start Date End Date Mihir Glover MD [address] [facility] [place] [address] PCP - General Internal Medicine 02/19/16 Mauricio Greenfield, DO Primary Staff Physician Cardiology 07/26/18 Cryogenic Transport Driver Relationship Specialty Start Date End Date Mihir Glover MD [address] [facility] [place] [address] PCP - General Internal Medicine 02/19/16 Mauricio Greenfield DO Primary Staff Physician Cardiology 07/26/18 Cryogenic Transport Driver Relationship Specialty Start Date End Date Mihir Glover MD [address] [place] [address] PCP - General Internal Medicine 02/19/16 Mauricio Greenfield DO Primary Staff Physician Cardiology 07/26/18 Cryogenic Transport Driver Relationship Specialty Start Date End Date Love Galvez PCP - General 09/03/05 07/26/13 Pcp, No PCP - General 07/27/13 03/09/14 Pcp, No PCP - General Internal Medicine 06/18/14 08/30/14 Flores Chao MD [address] [facility] [place] [address] PCP - General Internal Medicine 08/31/14 02/18/16 Mihir Glover MD [address] [facility] [place] [address] PCP - General Internal Medicine 02/19/16 Mauricio Greenfield DO Primary Staff Physician Cardiology 08/08/14 6 Mauricio Greenfield, DO Primary Staff Physician Cardiology 07/26/18 Mauricio Greenfield, DO Primary Staff Physician Cardiology 07/26/18 Cryogenic Transport Driver Relationship Specialty Start Date End Date Mihir Glover MD [address] [place] [address] PCP - General Internal Medicine 02/19/16 Mauricio Greenfield, DO Primary Staff Physician Cardiology 07/26/18 Cryogenic Transport Driver Relationship Specialty Start Date End Date Mihir Glover MD [address] [place] [address] PCP - General Internal Medicine 02/19/16 Mauricio Greenfield, DO Primary Staff Physician Cardiology 07/26/18 Mauricio Greenfield, DO Primary Staff Physician Cardiology 07/26/18 Cryogenic Transport Driver Relationship Specialty Start Date End Date Mihir Glover MD [address] [place] [address] PCP - General Internal Medicine 02/19/16 Mauricio Greenfield, DO Primary Staff Physician Cardiology 07/26/18 Cryogenic Transport Driver Relationship Specialty Start Date End Date Pcp, No PCP - General Internal Medicine 06/18/14 08/30/14 Flores Chao MD [address] [place] [address] PCP - General Internal Medicine 08/31/14 02/18/16 Mihir Glover MD [address] [place] [address] PCP - General Internal Medicine 02/19/16 Mauricio Greenfield, DO Primary Staff Physician Cardiology 08/08/14 6 Mauricio Greenfield, DO Primary Staff Physician Cardiology 07/26/18 Mauricio Greenfield, DO Primary Staff Physician Cardiology 07/26/18 Cryogenic Transport Driver Relationship Specialty Start Date End Date Mihir Glover MD [address] [place] [address] PCP - General Internal Medicine 02/19/16 Mauricio Greenfield, DO Primary Staff Physician Cardiology 07/26/18 Cryogenic Transport Driver Relationship Specialty Start Date End Date Mihir Glover MD [address] [place], [place] [phone] PCP - General Internal Medicine 02/19/16 Mauricio Greenfield, DO Primary Staff Physician Cardiology 07/26/18 Cryogenic Transport Driver Relationship Specialty Start Date End Date Love Galvez PCP - General 09/03/05 07/26/13 Pcp, No PCP - General 07/27/13 03/09/14 Pcp, No PCP - General Internal Medicine 06/18/14 08/30/14 Flores Chao MD [address] [facility] [place] [address] PCP - General Internal Medicine 08/31/14 02/18/16 Mihir Glover MD [address] [place] [address] PCP - General Internal Medicine 02/19/16 Mauricio Greenfield, DO Primary Staff Physician Cardiology 08/08/14 Mauricio Greenfield, DO Primary Staff Physician Cardiology 07/26/18 Mauricio Greenfield, DO Primary Staff Physician Cardiology 07/26/18 Cryogenic Transport Driver Relationship Specialty Start Date End Date Flores Chao MD [address] [place] [address] PCP - General Internal Medicine 08/31/14 02/18/16 Mihir Glover MD [address] [place] [address] PCP - General Internal Medicine 02/19/16 Mauricio Greenfield, DO Primary Staff Physician Cardiology 08/08/14 6 Mauricio Greenfield, DO Primary Staff Physician Cardiology 07/26/18 Mauricio Greenfield, DO Primary Staff Physician Cardiology 07/26/18 Cryogenic Transport Driver Relationship Specialty Start Date End Date Mihir Glover MD [address] [place] [address] PCP - General Internal Medicine 02/19/16 Mauricio Greenfield DO Primary Staff Physician Cardiology 07/26/18 Mauricio Greenfield DO Primary Staff Physician Cardiology 07/26/18 Cryogenic Transport Driver Relationship Specialty Start Date End Date Mihir Glover MD [address] [facility] [place] [address] PCP - General Internal Medicine 02/19/16 Mauricio Greenfield DO [address] [facility] [place] [address] Primary Staff Physician Cardiology 07/26/18 Team Status: Active Member Role Status Dates Dr. Mihir Glover MD Family Provider Active Dr. Mihir Glover MD Primary Care Provider Active Team Status: Inactive Member Role Status Dates Dr. Mihir Glover MD Primary Care Provider Active Dr. Desi Mcghee DO Emergency Provider Active Cryogenic Transport Driver Relationship Specialty Start Date End Date Mihir Glover MD [address] [facility] [place] [address] PCP - General Internal Medicine 02/19/16 Mauricio Greenfield DO [address] [place] [address] Primary Staff Physician Cardiology 07/26/18 Cryogenic Transport Driver Relationship Specialty Start Date End Date Mihir Glover MD [address] [facility] [place] [address] PCP - General Internal Medicine 02/19/16 Mauricio Greenfield DO [address] [facility] [address] Primary Staff Physician Cardiology 07/26/18 Team Status: Inactive Member Role Status Dates Dr. Mihir Glover MD Primary Care Provider Active Dr. Cornelius Aguiar MD Emergency Provider Active Team Status: Inactive Member Role Status Dates Dr. Mihir Glover MD Primary Care Provider Active Dr. Cornelius Aguiar MD Attending Provider, Emergency Provider Active Team Status: Inactive Member Role Status Dates Dr. Mihir Glover MD Primary Care Provider Active Dr. Corey Adorno DO Emergency Provider Active Cryogenic Transport Driver Relationship Specialty Start Date End Date Generic Provider, [place] [address] PCP - General Medical Accountant 12/25/24 Cryogenic Transport Driver Relationship Specialty Start Date End Date Generic Provider, No [place] [address] PCP - General Medical Accountant 12/25/24 [place] [address] [place] [address] Surgeon Cardiothoracic Surgery 01/02/25 Lio Balbuena MD [address] [place] [address] Referring Physician Interventional Cardiology 01/02/25 Cryogenic Transport Driver Relationship Specialty Start Date End Date Mihir Glover MD [address] [place] [address] PCP - General Internal Medicine 01/09/25 [place] [address] Department [place] [address] Surgeon Cardiothoracic Surgery 01/02/25 Lio Balbuena MD [address] [place] [address] Referring Physician Interventional Cardiology 01/02/25 Cryogenic Transport Driver Relationship Specialty Start Date End Date Mihir Glover MD [address] [place] [address] PCP - General Internal Medicine 01/09/25 [place] [address] Department [place] [address] Surgeon Cardiothoracic Surgery 01/02/25 Lio Balbuena MD [address] [facility] [address] [place] [address] Referring Physician Interventional Cardiology 01/02/25 Cryogenic Transport Driver Relationship Specialty Start Date End Date Mihir Glover MD [address] [place] [address] PCP - General Internal Medicine 01/09/25 [place] [address] Department [place] [address] Surgeon Cardiothoracic Surgery 01/02/25 Lio Balbuena MD [address] [facility] [address] [place] [address] Referring Physician Interventional Cardiology 01/02/25 Scheduled Active and Recently Administ ered Medications (unrecognized section and content) Medication Order 01/12/2025 01/13/2025 01/14/2025 acetaminophen (Tylenol) tablet 975 mg 975 mg, oral, Every 8 hours, First dose (after last modification) on Wed01/10/25 at 1400, If ordered PRN for pain, nurse is permitted to administer this medication for higher pain scores based on patient preference? Yes 0610 (Given - Provider: Lona Penn RN)1444 (Given - Provider: Marian Alexander, MARISOL)2130 (Given - Provider: Maggie Aguero RN) 0425 (Given - Provider: Maggie trejo RN)1348 (Given - Provider: Kita Sanchez RN)2105 (Given - Provider: Maggie trejo RN) 0617 (Given - Provider: Maggie trejo RN)1340 (Given - Provider: Kita Sanchez RN)2200 (Due) aspirin EC tablet 81 mg 81 mg, oral, Daily, First dose on Dalia 01/11/25 at 0900, Do not crush, chew, or split. 0938 (Given - Provider: Marian Alexander RN) 0852 (Given - Provider: Kita Sanchez RN) 0901 (Given - Provider: Kita Sanchez RN) furosemide (Lasix) injection 20 mg (CANCELED) 20 mg, intravenous, Daily, First dose on Dalia 01/11/25 at 1430 0940 (Given - Provider: Marian Alexander RN) furosemide (Lasix) injection 20 mg 20 mg, intravenous, Daily, First dose (after last modification) on 01/14/25 at 0900 0900 (Given - Provider: Kita Sanchez, MARISOL) furosemide (Lasix) injection 40 mg (CANCELED) 40 mg, intravenous, Daily, First dose (after last modification) on 01/13/25 at 0900 0852 (Given - Provider: Kita Sanchez RN) heparin (porcine) injection 5,000 Units 5,000 Units, subcutaneous, Every 8 hours, First dose on 01/10/25 at 0645 0610 (Given - Provider: Lona Penn RN)1352 (Held by provider - Provider: Ashley Alcala APRN-GASOLINE TESTER, PUTTY REMOVER-MANAGER OF FINANCIAL PLANNING - Reason: Other - Comment: Thrombocytopenia 84 K)1445 (Not Given - Provider: Marian Alexander RN - Reason: See Provider Order)2245 (Not Given - Provider: Maggie Aguero RN - Reason: Patient/family refused) 0645 (Not Given - Provider: Maggie trejo RN - Reason: See Provider Order)0942 (Unheld by provider - Provider: Ashley J Alcala, PUTTY REMOVER-GASOLINE TESTER, PUTTY REMOVER-MANAGER OF FINANCIAL PLANNING)1348 (Given - Provider: Kita Sanchez RN)2106 (Given - Provider: Maggie trejo RN) 0618 (Given - Provider: Maggie trejo RN)1428 (Canceled Entry - Provider: Kita Sanchez RN)2245 (Due) iron polysaccharides (Nu-Iron,Niferex) capsule 150 mg 150 mg, oral, Daily, First dose on Wed01/11/25 at 0900 0938 (Given - Provider: Marian Alexander RN) 0852 (Given - Provider: Kita Sanchez RN) 0901 (Given - Provider: Kita Sanchez RN) methocarbamol (Robaxin) tablet 500 mg (COMPLETED) 500 mg, oral, Every 6 hours, First dose (after last modification) on Wed01/10/25 at 1400, For 10 doses 0319 (Given - Provider: Lona Penn RN)0937 (Given - Provider: Marian Alexander RN)1444 (Given - Provider: Marian Alexander RN)2132 (Given - Provider: Maggie Aguero RN) metoprolol tartrate (Lopressor) tablet 12.5 mg 12.5 mg, oral, 2 times daily, First dose on Wed01/10/25 at 0900 0937 (Given - Provider: Marian Alexander RN)2130 (Given - Provider: Maggie Aguero RN) 0852 (Given - Provider: Kita Sanchez RN)211 (Not Given - Provider: Maggie trejo RN - Reason: Other - Comment: Bp low, hold per team) 0900 (Given - Provider: Kita Sanchez RN)2100 (Due) multivitamin with minerals 1 tablet 1 tablet, oral, Daily, First dose on Wed01/11/25 at 0900 0937 (Given - Provider: Marian Alexander RN) 0852 (Given - Provider: Kita Sanchez RN) 0902 (Given - Provider: Kita Sanchez RN) perflutren lipid microspheres (Definity) injection 0.5-10 mL of dilution (COMPLETED) 0.5-10 mL of dilution, intravenous, Once in imaging, Starting on Wed01/13/25 at 1041, For 1 dose, CV Medications, Contrast - for use by imaging provider only. Prior to administration, Definity product must be activated. First, bring vial to room temperature. Then, shake vial for 45 seconds. Do not use if the 45 second activation cycle has not been completed. Following activation, the product will appear as a milky white suspension and may be used immediately. If not used within 5 minutes of activation, re-suspend by inverting and shaking the vial for 10 seconds. Discard unused product. Administration: Dilute 1.3 mL of activated DEFINITY with 8.7 mL of normal saline in a 10 mL syringe. Inject 0.5 mL of diluted DEFINITY when notified the images/film are unclear to enhance view of Left Ventricular borders. Repeat 0.5 mL of DEFINITY until clear images are obtained, not to exceed 10 mLs. Once images are obtained or limit of medication is reached, flush line with 10 mL of Normal Saline. 1057 (Given - Provider: Malini Irwin RN) polyethylene glycol (Glycolax, Miralax) packet 17 g 17 g, oral, Daily, First dose on Wed01/09/25 at 1300, Bowel Regimen - for prevention of constipation. 1148 (Given - Provider: Marian Alexander RN - Comment: Pt refused earlier due to migraine.) 0852 (Given - Provider: Kita Sanchez RN) 0900 (Given - Provider: Kita Sanchez RN) potassium chloride CR (Klor-Con M20) ER tablet 40 mEq (COMPLETED) 40 mEq, oral, Once, On Wed01/13/25 at 1030, For 1 dose, Best given with food and plenty of water to minimize gastric irritation. Do not crush or chew. 1126 (Given - Provider: Kita Sanchez RN) potassium, sodium phosphates (Phos-NaK) 280-160-250 mg packet 1 packet (COMPLETED) 1 packet, oral, 4 times daily, First dose on Wed01/12/25 at 1300, For 1 dose, mg dosing is based on phosphorus component. Each packet contains 250 mg elemental phosphorus, 7.1 mEq potassium, and 6.9 mEq sodium. 1444 (Given - Provider: Marian Alexander RN - Comment: workflow) sennosides-docusate sodium (Milena-Colace) 8.6-50 mg per tablet 2 tablet 2 tablet, oral, 2 times daily, First dose on Wed01/09/25 at 1300, Bowel Regimen - for prevention of constipation Hold for loose stools 0937 (Given - Provider: Marian Alexander RN)2130 (Given - Provider: Maggie Aguero RN) 0852 (Given - Provider: Kita Sanchez RN)214 (Not Given - Provider: Maggie trejo RN - Reason: Patient/family refused) 09 (Given - Provider: Kita Sanchez RN)2100 (Due) sodium chloride 0.9 % bolus 1,000 mL 1,000 mL, intravenous, at 999 mL/hr, Administer over 1 Hours, Once, On Wed01/12/25 at 1500, For 1 dose 1644 (Not Given - Provider: Marian Alexander RN - Reason: Patient/family refused - Comment: RN educated pt) PRN Medication Order 01/12/2025 01/13/2025 01/14/2025 bisacodyl (Dulcolax) suppository 10 mg 10 mg, rectal, Daily PRN, constipation, first line, Starting on Wed01/10/25 at 0954 1622 (Given - Provider: Kita Sanchez RN) calcium carbonate (Tums) 500 mg (200 mg elemental) chewable tablet 1 tablet 1 tablet (500 mg of calcium carbonate), oral, 4 times daily PRN, indigestion, heartburn, Starting on Wed01/10/25 at 1248 LORazepam (Ativan) tablet 0.5 mg 0.5 mg, oral, Daily PRN, anxiety, Starting on Wed01/11/25 at 1623 0941 (Given - Provider: Marian Alexander RN) 0852 (Given - Provider: Kita Sanchez RN) 0232 (Given - Provider: Maggie Aguero RN - Comment: Okay to give per Dr Cem Chenges) naloxone (Narcan) injection 0.2 mg 0.2 mg, intravenous, Every 5 min PRN, respiratory depression, Starting on Wed01/09/25 at 1232, If respiratory rate is less than 8 breaths/minute or patient is difficult to arouse stop any narcotics and contact physician. Administer slow IV push. Repeat as ordered until patient's respiratory rate is greater than 12 breaths/minute. ondansetron (Zofran) injection 4 mg(Linked Group 1) 4 mg, intravenous, Every 8 hours PRN, nausea/vomiting, first line, Starting on Wed01/09/25 at 1232, 1st Line. Give IV if patient is unable to take orally. If inadequate response within 60 minutes, proceed to next-line agent for same PRN reason or contact provider if no further options ordered. When administering via IV Push, administer over 3-5 minutes. ondansetron (Zofran) tablet 4 mg(Linked Group 1) 4 mg, oral, Every 8 hours PRN, nausea/vomiting, first line, Starting on Wed01/09/25 at 1232, 1st Line. Use oral route first, if possible. If inadequate response within 60 minutes, proceed to next-line agent for same PRN reason or contact provider if no further options ordered. oxyCODONE (Roxicodone) immediate release tablet 5 mg (CANCELED) 5 mg, oral, Every 4 hours PRN, pain moderate (4-6), first line, Starting on Wed01/09/25 at 1232, If ordered PRN for pain, nurse is permitted to administer this medication for higher pain scores based on patient preference? Yes 6887 (Given - Provider: Marian Alexander RN) 0425 (Given - Provider: Maggie Aguero RN) oxygen (O2) therapy inhalation, Continuous - O2/gases, oxygen, Starting on Wed01/10/25 at 0954, Wean as tolerated., Device: Nasal Cannula, Keep O2 Sat Above: 92% Linked Groups Order Group 1: ondansetron (Zofran) tablet 4 mgJump to med 4 mg, oral, Every 8 hours PRN, nausea/vomiting, first line, Starting on Wed01/09/25 at 1232, 1st Line. Use oral route first, if possible. If inadequate response within 60 minutes, proceed to next-line agent for same PRN reason or contact provider if no further options ordered. Or ondansetron (Zofran) injection 4 mgJump to med 4 mg, intravenous, Every 8 hours PRN, nausea/vomiting, first line, Starting on Wed01/09/25 at 1232, 1st Line. Give IV if patient is unable to take orally. If inadequate response within 60 minutes, proceed to next-line agent for same PRN reason or contact provider if no further options ordered. When administering via IV Push, administer over 3-5 minutes. FOR RECORDS PERTAINING TO PATIENTS WHO ARE [...] BE BASED ON THE PRIMARY CLINICAL RECORDS. [facility]. provides no warranty or guarantee of the accuracy or completeness of information in this document.
--- NOTE | 2025-01-20 01:07 | EDS_ITS ---
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 Patient states that she has been on Lasix since her surgery. Her last dose was today. States she has been sleeping in a recliner secondary to comfort. States she woke up this evening and felt short of breath. She states she then started to panic and have an increase in anxiety. She states she then developed chest tightness. She is not on blood thinners. Symptoms already improving. She denies any fever, chills, URI symptoms, abdominal pain, nausea, vomiting, dysuria, bilateral lower extremity swelling. Review of systems: See HPI Medications: As listed on the chart Allergies: As listed on the chart PFSH: Per chart Vital signs: As listed on the chart. Reviewed. Physical exam: Gen: A&O x3, NAD but anxious Head: Normocephalic, atraumatic Eyes: No sclera icterus, conjunctiva clear, PERRL, EOMI ENT: Mildly dry mucous membranes Neck: Trachea midline, No JVD CV: RRR, no murmurs, no peripheral edema, midline chest incision healing well without overlying cellulitis or purulence Resp: Lungs CTA BL, no w/r/c GI: Abd soft, non-distended, non-tender, no r/r/g Musc: Full ROM, no deformity Skin: Warm, dry Neuro: Alert, oriented, grossly intact, sensation intact Psych: Cooperative, anxious [facility] Medical History (Updated 01/20/25 @ 05:[address] Gaston Guzman, DO) Wears glasses Wears dentures Marijuana use Easy bruising Restless legs Migraine headache Heartburn Former smoker Sleep apnea History of edema History of echocardiogram Cardiology follow-up encounter History of pacemaker Iron deficiency anemia PTSD (post-traumatic stress disorder) Deliberate self-cutting Bulimia Panic anxiety syndrome History of complete heart block Home Medications ?Medication ?Instructions ?Recorded ?Last Taken ?Type lorazepam 0.5 mg tablet 0.5 mg PO DAILY PRN PRN Anxi ety 01/30/22 02/05/22 History aspirin 81 mg tablet,delayed 81 mg PO DAILY 01/20/25 0 01/20/25 History release furosemide 20 mg tablet 20 mg PO DAILY 01/20/2501/08 History furosemide 20 mg tablet (Lasix) 20 mg PO DAILY 5 days #5 tabs 01/20/25 Unknown Rx metoprolol succinate 25 mg 12.5 mg PO BID 01/20/25 History tablet,extended release 24 hr Allergy/AdvReac Type Severity Reaction Status Date / Time sertraline (From Zoloft) Allergy Mild Other Verified 01/20/25 00:30 tramadol Allergy Nausea Verified 01/20/25 00:30 Antihistamines - AdvReac Other Verified 01/20/25 00:30 Ethylenediamine naproxen AdvReac Other Verified 01/20/25 00:30 paroxetine HCl (From Paxil) AdvReac Other Verified 01/20/25 00:30 Family History Other Cardiac defibrillator in place Surgical History Hx of section History of endometrial ablation History of cardiac catheterization History of implantable cardiac defibrillator (ICD) Social History Smoking Status: Never smoker EXAM Physical Exam Const Vital Signs: 01/20/25 00:30 01/20/25 00:32 01/20/25 00:34 Temperature 98.6 F 98.6 F Temperature Source Oral Oral Pulse Rate 99 97 Respiratory Rate 19 H 18 Respiratory Effort Short of Breath Blood Pressure 123/80 H 123/80 H Blood Pressure Mean 94 94 Pulse Ox 99 99 Oxygen Delivery Method Room Air Room Air 01/20/25 01:28 01/20/25 02:00 01/20/25 03:00 Temperature Temperature Source Pulse Rate 87 87 89 Respiratory Rate 16 18 18 Respiratory Effort Blood Pressure 98/68 101/67 Blood Pressure Mean 78 78 Pulse Ox 98 99 97 Oxygen Delivery Method Room Air Room Air Room Air 01/20/25 04:00 01/20/25 05:00 Temperature Temperature Source Pulse Rate 87 90 Respiratory Rate 16 18 Respiratory Effort Blood Pressure 102/68 96/65 Blood Pressure Mean 79 75 Pulse Ox 98 98 Oxygen Delivery Method Room Air Room Air MDM MDM MDM Narrative Medical decision making narrative: 49-year-old female with past medical history of congenital heart block requiring ICD at the age of 16, recent mitral valve prolapse repair on 01/09, iron deficiency anemia, cardiomyopathy, anxiety presents for evaluation of chest tightness. Patient states that she has been on Lasix since her surgery. Her last dose was today. States she has been sleeping in a recliner secondary to comfort. States she woke up this evening and felt short of breath. She states she then started to panic and have an increase in anxiety. She states she then developed chest tightness. She is not on blood thinners. Symptoms already improving. On presentation, patient no acute distress but anxious. Vitals are stable. Differential diagnosis includes but is not limited to anxiety reaction, pneumonia, CHF exacerbation, PE, ACS, arrhythmia, anemia, dehydration, electrolyte abnormality. Aspirin and 500 cc NS bolus ordered. Patient refused Tylenol. Pacemaker was interrogated without any events. CBC without leukocytosis. Patient has anemia with hemoglobin 11.2. She has history of anemia in the past. She states she has been anemic since her surgery. Platelet count unremarkable. Coagulation panel unremarkable. BMP unremarkable without electrolyte abnormality or GENE. BNP mildly elevated at 765. Patient not overtly fluid overloaded on physical exam. She has been on Lasix since her surgery. Troponin 56. I suspect this elevation is likely from her recent surgery, will get delta. UA negative for UTI. Repeat troponin 55. The delta is negative. Again I think this is suspected due to her recent heart surgery. Patient has a delayed stay here in our emergency department secondary to issues with radiology not being able to see her CTA. I did personally review the imaging, no obvious PE. Patient has bilateral pleural effusions. Patient symptoms may be secondary to mild CHF exacerbation. She states she is on 20 mg of Lasix from her heart surgery but that this ended yesterday. I will reach out to her delivery department supervisor at , Dr. Gordon Armstrong to discuss if I should place the patient back on Lasix. I am also hoping that maybe he will be able to look at the CTA imaging to assess for any missed abnormality as radiology is unable to read my imaging. I spoke with the cardiothoracic surgeon from , Dr. Morin. He reviewed the CTA and patient was discussed. He agrees that patient has bilateral pleural effusions, worse on the right with atelectasis. No PE. He was updated of her intermittently soft blood pressures. Okay to place patient's back on Lasix for a couple days. Call their office for follow-up. May need an outpatient echocardiogram. Patient confirmed understanding the plan. Patient stable to discharge home. EKG: Interpreted by me/EM physician: EKG shows atrial sensed ventricular paced rhythm. Heart rate 92 Diagnostic: Interpreted by me/EM physician: ICD in place. No pneumonia or pneumothorax. Small bilateral pleural effusions. Impression: 1. Mild CHF exacerbation 2. Chronic anemia 3. History of recent mitral valve prolapse repair Lab Data Labs: Laboratory Results - last 24 hr 01/20/25 01/20/25 01/20/25 00:37 01:18 02:34 WBC 10.3 RBC 3.96 L Hgb 11.2 L Hct 34.1 L MCV 86.1 MCH 28.3 MCHC 32.8 RDW Std Deviation 43.1 RDW Coeff of Hortencia 13.9 Plt Count 313 MPV 11.2 Immature Gran % (Auto) 0.500 Neut % (Auto) 67.6 Lymph % (Auto) 21.2 [place]ade % (Auto) 6.0 Eos % (Auto) 4.3 Baso % (Auto) 0.4 Absolute Neuts (auto) 6.9 Absolute Lymphs (auto) 2.18 Nucleated RBC % 0 PT 13.8 INR 1.0 APTT 25.3 Sodium 139 Potassium 3.5 Chloride 105 Carbon Dioxide 21.3 Anion Gap 13 BUN 18 Creatinine 0.90 Estim Creat Clear Calc 96.69 Est GFR (MDRD) Non-Af 78 BUN/Creatinine Ratio 20.0 Glucose 113 H Calcium 8.8 Troponin T High Sens 56 H* Troponin T Hi Sens 2 Hr 55 H* NT pro BNP II 765 H Urine Color Straw Urine Clarity Clear Urine pH 6.0 Ur Specific [place] 1.010 Urine Protein Negative Urine Glucose (UA) Normal Urine Ketones Negative Urine Occult Blood 10 H Urine Nitrite Negative Urine Bilirubin Negative Urine Urobilinogen Normal Ur Leukocyte Esterase Negative Urine RBC 0 SEEN Urine WBC 0 SEEN Ur Squamous Epith Cells 0-5 SEEN Urine Bacteria 0 SEEN Urine Mucus 0 SEEN Discharge Plan Triage Chief Complaint: Chest Pain ED Provider: Gaston Guzman Dx/Rx/DC Orders Clinical Impression: CHF exacerbation Instructions: Heart Failure Dc Prescriptions: New furosemide [Lasix] 20 mg tablet 20 mg PO DAILY 5 Days Qty: 5 0RF No Action lorazepam 0.5 mg tablet 0.5 mg PO DAILY PRN PRN (Reason: Anxiety) furosemide 20 mg tablet 20 mg PO DAILY metoprolol succinate 25 mg tablet extended release 24 hr 12.5 mg PO BID aspirin 81 mg tablet,delayed release (DR/EC) 81 mg PO DAILY Primary Care Provider: Mihir Glover Referrals: Follow-up with your cardiothoracic surgeon [Other] Mihir Glover MD [Primary Care Provider] - 3-5 Days Activity Restrictions/Additional Instructions: Follow-up with your cardiothoracic surgeon. You need to call their office as soon as possible. I did write for a couple days of Lasix. Follow-up with your primary care physician. Print Language: [place] Disposition Disposition: Home, Self Care
[2025-01-20] MEDS: 0.9% Normal Saline (500mL Bag) 500 ML 999 ML IV (01:17)
[2025-01-20 01:19] LABS: Hematocrit 34.1 % (37-47); Hemoglobin 11.2 g/dL (12.0-15.0); Immature Granulocytes Count 0.050 X10^3/uL (0.0-0.0); Mean Corp Hgb Conc 32.8 g/dL (32-36); Mean Corpuscular Volume 86.1 fL (81-99); Mean Platelet Vol. 11.2 fl (6.2-12.0); NRBC Flagged by Analyzer 0 % (0-5); Platelet Count 313 K/mm3 (150-450); RBC Distribution Width CV 13.9 % (11.6-14.6); RBC Distribution Width SD 43.1 fl (35.1-43.9); Red Blood Count 3.96 M/mm3 (4.2-5.4); White Blood Count 10.3 K/mm3 (4.4-11.0)
[2025-01-20 01:28] LABS: Prothrombin Time (Protime)PT. 13.8 SECONDS (11.7-14.9)
[2025-01-20 01:29] LABS: Partial Thromboplast Time 25.3 Seconds (24.1-36.2)
[2025-01-20 01:38] LABS: Mucous, Urine 0 SEEN /hpf (<or=2+); Red Blood Cells-Urine 0 SEEN /hpf (0-5)
[2025-01-20 01:40] LABS: Color, Urine Straw (Yellow); Glucose, Dipstick Normal (Normal); Ketone-Dipstick Negative (Negative); Leukocyte Esterase-Dipstick Negative /ul (Negative); Nitrite-Dipstick Negative (Negative); Occult Blood-Urine 10 /ul (Negative); Protein-Dipstick Negative (Negative); Specific Gravity, Urine 1.010 (1.002-1.030); Urine Bilirubin Dipstick Negative (Negative)
[2025-01-20 01:41] LABS: Anion Gap 13 (5-15); BUN 18 mg/dL (4-19); BUN/Creat Ratio 20.0 RATIO (10-20); Calcium,Total 8.8 mg/dL (7.6-11.0); Carbon Dioxide 21.3 mmol/L (21.0-32.0); Chloride 105 mmol/L (98-108); Estimated Creatinine Clearance 96.69 ml/min (50-250); Glucose 113 mg/dL (70-99); Potassium 3.5 mmol/L (3.3-5.1)
[2025-01-20 01:43] LABS: Pro- Brain NATRIURETIC PEPTIDE 765 pg/mL (<=450); Troponin T High Sensitivity 56 ng/L (<=14)
[2025-01-20 02:04] LABS: Squamous Epithelial Cells - UA 0-5 SEEN /hpf (5-10)
[2025-01-20 03:20] LABS: Troponin T High Sens 2 HR 55 ng/L (<=14)
== END 2025-01-20 05:45 | disposition home or self-care (01) ==
PROVIDERS: Emergency Provider Surgery; PCP Internal Medicine; Visit Provider Surgery
DX: I50.9 Heart failure, unspecified (principal); I42.9 Cardiomyopathy, unspecified; Q24.6 Congenital heart block; I34.1 Nonrheumatic mitral (valve) prolapse; D50.9 Iron deficiency anemia, unspecified; F41.9 Anxiety disorder, unspecified; F43.10 Post-traumatic stress disorder, unspecified; Z95.2 Presence of prosthetic heart valve; Z79.82 Long term (current) use of aspirin; Z79.899 Other long term (current) drug therapy; Z95.810 Presence of automatic (implantable) cardiac defibrillator; Z87.891 Personal history of nicotine dependence
CPT/HCPCS: 71046; 71275; 80048; 81001; 83880; 84484; 85025; 85610; 85730; 93005; 96360; 99285; Q9967; A4216

== ENCOUNTER 2025-01-27 18:27 | Emergency (ER) | payer MEDICAID, SELFPAY ==
[2025-01-27 18:28] VITALS: BP 136/96; PULSE 102; RESP 18; TEMP 36.8; O2SAT 99; BMI 32.2
[2025-01-27 18:55] VITALS: O2SAT 100
--- NOTE | 2025-01-27 19:01 | EKG12_ITS ---
Test Reason : DYSRHYTHMIA Blood Pressure : */* mmHG Vent. Rate : 98 BPM Atrial Rate : 98 BPM P-R Int : 130 ms QRS Dur : 158 ms QT Int : 424 ms P-R-T Axes : 66 240 69 degrees QTcB Int : 541 ms Atrial-sensed ventricular-paced rhythm Biventricular pacemaker detected Abnormal ECG Confirmed by DANA ZELAYA, KIMI ([id number]), videotape editor DIANA BREEN ([id number]) on 01/29/2025 8:30:03 AM Referred By: FRANCIS Confirmed By: KIMI CORTEZ MD
--- NOTE | 2025-01-27 19:01 | RAD_ITS ---
PROCEDURE: CHEST PA AND LATERAL 01/27/2025 REASON FOR EXAM: NONPRODUCTIVE COUGH PLEURITIC CHEST PAIN TECHNIQUE: Procedure Code: RADCXR Modality: DX Procedure: CHEST PA AND LATERAL COMPARISON: Chest x-ray January 20, 2025. FINDINGS: Lungs: There is slight worsening of dense opacification at the left lung base which may represent a combination of worsening pleural fluid, atelectasis and/or infiltrate/pneumonia. Clinical correlation and radiographic follow-up to confirm resolution is advised. Underlying mass can not be evaluated by this technique. Slight improvement in aeration at the right costophrenic angle. Mild parenchymal scarring at the right lung base. Pleura: There is no evidence of pneumothorax. Mediastinum: There is no mediastinal widening or mediastinal shift. Heart: The cardiac silhouette is not enlarged. Left chest wall multilead cardiac pacer device again noted. Alondra: The pulmonary alondra are not enlarged or retracted. Osseous: No acute fracture is seen. Median sternotomy changes noted. RAD/Chest PA and Lateral IMPRESSION: Slight worsening opacity at the left lung base, differential and recommendation s discussed above. - Other findings discussed above. Reading Location: [id number]
--- OUTSIDE RECORDS SUMMARY | 2025-01-27 19:13 | XMS RPT_ITS | CCD ---
Author Organization [facility] CliniSyhi Care Team Providers Care [employer] Instructor Name Role Phone Mihir Glover MD Primary Care Provider Amalfitano DO Mauricio L Unavailable Love Galvez Primary Care Provider Pcp, No Primary Care Provider Unavailbandar e Pcp, No Primary Care Provider Unavailabl e Amalfitano DO Mauricio L Unavailable Flores Chao MD Primary Care Provider Mihir Glover MD Primary Care Provider Amalfitrohini DO Mauricio L Unavailable Amalnader DO Mauricio L Unavailable Mihir Glover MD Primary Care Provider Amalfitrohini DO, Mauricio L Unavailable RAMÓN HUTCHISON Attending Unavailable MIHIR GLOVER Primary Care Unavailable DEIRDRE ASHLEY Referring Unavailable JOHNATHAN, SWAPNA L Primary Care Unavailable SWAPNA MANN L Attending Unavailable MIHIR GLOVER Consulting Unavailable JOHNATHAN, SWAPNA L Admitting Unavailable PROVIDER, UNKNOWN Consulting Unavailable JOHNATHAN, SWAPNA L Primary Care Unavailable JOHNATHAN SWAPNA L Attending Unavailable MIHIR GLOVER Consulting Unavailable JOHNATHAN, SWAPNA L Admitting Unavailable PROVIDER, UNKNOWN Consulting Unavailable ADALBERTO ZELAYA, DR ASH Primary Care Physician [phone] ADALBERTO ZELAYA, DR ASH Primary Care Unavailmeche DEJESUS NURSERY MANAGER-KIM YADAV Attending Unavailab le Unavailable Primary Care Provider UnavailFREDRICK Giles MD Consulting Unavailable ADALBERTO ZELAYA, DR ASH Primary Care Unavailmeche BALBUENA MD, LIO Attending Unavailable KIM DEJESUS Referring Unavailable HTAY MD, RYAN ROBERSON Attending Unavailable ADALBERTO ZELAYA, DR ASH Primary Care Unavailmeche MANN MD, SWAPNA Jain Attending Unavailable JOHNATHAN ZELAYA, SWAPNA Jain Consulting Unavailable ADALBERTO ZELAYA, DR ASH Primary Care Unavailmeche fajardo Generic Provider , No Assigned Pcp Primary Car e Provider Unavailable Gordon Armstrong MD Unavailable Esha ZELAYA, Mihaimulugeta Tod Unavailable Unavailable Adalberto ZELAYA, Mihir Johnson Primary Care Provider Godron Armstrong MD Unavailable Esha ZELAYA, Mihail Tod Unavailable Unavailable Adalberto ZELAYA, Mihir Johnson Primary Care Provider Adalberto ZELAYA, Dr. Ash Primary Care Provider DUSTIN PADRON Attending Provider DUSTIN PARDON Referring Provider Dr. Gaston Guzman DO Emergency Provider SABMELISSA GORDON F Referring Unavailable SABIKGORDON F Admitting Unavailable SABIKGORDON F Attending Unavailable GENERIC PROVIDER, NO ASSIGNED PCP Primary Care Unavailable GENERIC PROVIDER, NO ASSIGNED PCP Primary Care Unavailable GORDON ARMSTRONG F Referring Unavailable GENERIC PROVIDER, NO ASSIGNED PCP Primary Care Unavailable SABGORDON TORRES F Attending Unavailable GENERIC PROVIDER, NO ASSIGNED PCP Primary Care Unavailable TEE HERNANDEZ Referring Unavailable ADALBERTO, MIHIR JOHNSON Primary Care Unavailable ADALBERTO, MIHIR JOHNSON Primary Care Unavailable SOTERO MARTINEZ Attending Unavailable SANDRA BLANC Referring Unavailable ADALBERTO, MIHIR JOHNSON Primary Care Unavailable GLOVER, MIHIR JOHNSON Primary Care Unavailable SOTERO MARTINEZ Attending Unavailable SANDRA BLANC Referring Unavailable ADALBERTO, MIHIR JOHNSON Primary Care Unavailable GILL KNIGHT Attending Unavailable ADALBERTO, MIHIR Joaquin Primary Care Unavailable ADALBERTO, RENÉ Attending Unavailable ADALBERTO, RENÉ Primary Care Unavailable GLOVER, RENÉ Primary Care Unavailable ADALBERTO, RENÉ Referring Unavailable ADALBERTO, MIHIR Joaquin Primary Care Unavailable VEENA CELESTE Attending Unavailable Gaston Guzman Attending UnavailMihir Justice Primary Care Unavailable LUZ ELENA DOE Attending Unavailable LUZ ELENA DOE Referring Unavailable Mihir Glover Primary Care Unavailable Mihir Glover Primary Care Unavailable Provider, Ed Physician Attending UnavailJustin Kowalski Attending Unavailable Mihir Glover Primary Care Unavailable Allergies Allergy Classification Reported Allergen(s) Allergy Type Date of Onset Reaction(s) Facility (13 sources) Ethylenediamine derivative antihistamine; Translations: [ANTIHISTAMINES - ETHYLENEDIAMINE] Propensity to adverse reactions 10-25-19 22 Other [facility] (20 sources) Naproxen; Translations: [NAPROXEN] Drug Allergy 01-28-20 05 Other [facility] (7 sources) PARoxetine; Translations: [paroxetine HCl] Drug Allergy 10-25-19 22 Other [facility] (6 sources) traMADol Drug Allergy 10-25-19 22 Nausea [facility] (20 sources) Latex; Translations: [LATEX] Propensity to adverse reactions 08-25-19 07 [facility] Work Phone: (20 sources) Lisinopril; Translations: [LISINOPRIL] Drug Allergy 10-11-19 13 Other: See Comments, Other, Unknown [facility] Work Phone: (20 sources) PARoxetine; Translations: [PAROXETINE] Drug Allergy 01-28-20 05 Unknown [facility] (20 sources) Adhesive Tape-Silicones; Translations: [ADHESIVE TAPE-SILICONES] Propensity to adverse reactions 08-25-19 07 Hives [facility] Work Phone: (20 sources) diphenhydrAMINE; Translations: [DIPHENHYDRAMINE] Drug Allergy 12-05-19 22 Other: See Comments, Other [facility] (10 sources) Sertraline; Translations: [SERTRALINE] Drug Allergy 04-15-20 23 Palpitations [facility] Comment on above: palpitations (11 sources) Morphine; Translations: [MORPHINE] Drug Allergy 08-09-19 24 Hives, Itching [facility] (2 sources) Serotonin; Translations: [SEROTONIN] Drug Allergy 12-12-19 23 [facility] Other [place] Rep[facility] (1 source) Lisinopril Drug Allergy [facility] Repository (1 source) Naproxen Drug Allergy [facility] (1 source) Naproxen Drug Allergy [facility] (1 source) PARoxetine Drug Allergy [facility] (1 source) Sertraline Drug Allergy [facility] (3 sources) Adhesive Tape Drug allergy [facility] [place] (11 sources) topiramate; Translations: [topiramate] Drug Allergy 12-26-19 Palpitations [facility] [place] (1 source) ALLERGIES NOT ON FILE; Translations: [ALLERGIES NOT ON FILE] Propensity to adverse reactions (disorder) [facility] Repository (1 source) Naproxen Drug Allergy 01-21-20 [facility] Repository (1 source) Sertraline Drug Allergy 01-21-20 [facility] Repository (1 source) traMADol Drug Allergy 01-21-20 [facility] Repository (1 source) Antihistamines - Ethylenediamine Drug allergy (disorder) 01-21-20 [facility] Repository Medications Current Medications Medication Drug Class(es) Dates Sig (Normalized) Sig (Original) acetaminophen 325 mg oral tablet (5 sources) Start: 01-14-2025 End: 01-25-2025 take 3 tablets by mouth every six hours for pain acetaminophen (Tylenol) 325 mg tablet Indications: S/P MVR (mitral valve repair) Take 3 tablets (975 mg) by mouth every 6 hours if needed (for pain) for up to 10 days. 01/14/2025 01/25/2025 Discontinued (Med List Cleanup) Start: 01-10-2025 take 1 tablet by mouth every e ight hours Start: 01-09-2025 End: 01-10-2025 take 975 mg by mouth every six hours aspirin 81 mg delayed release oral tablet (6 sources) Platelet Aggregation Inhibitor, Nonsteroidal Anti-inflammatory Drug [...] needed. docusate sodium 100 mg oral capsule (3 sources) Start: End: take 1 capsule by mouth twice daily as needed for constipation docusate sodium (Colace) 100 mg capsule Indications: S/P MVR (mitral valve repair) Take 1 capsule (100 mg) by mouth 2 times a day as needed for constipation. 60 capsule 01/14/2025 11:00 AM EDT 01/14/2025 01/25/2025 Discontinued (Med List Cleanup) docusate sodium 50 mg / sennosides, mcc 8.6 mg oral tablet (1 source) Start: Drug or medicament (substance) (3 sources) Start: Start: 01-09-2025 End: 01-09-2025 Start: 01-09-2025 End: [...] 324 MG PO THREE TIMES A DAY October 24, 2021 12:00am take 1 tablet by liana th once daily at breakfast ferrous sulfate 325 mg (65 mg iron) tablet Take 325 mg by mouth daily with breakfast. 0 Active Comment on above: Take 325 mg by mouth daily with breakfast. Take 1 tablet by liana th three times daily with meals. furosemide 20 mg oral tablet (9 sources) Loop Diuretic Start: 5 End: 5 take 1 tablet by mouth once daily furosemide (Lasix) 20 mg tablet Indications: S/P MVR (mitral valve repair) Take 1 tablet (20 mg) by mouth once daily for 5 days. 5 tablet 01/14/2025 11:00 AM EDT 01/14/2025 01/25/2025 Discontinued (Therapy completed) Start: 01-10-2025 End: 01-14-2025 1 ml heparin [...] by mouth every 6 hours as needed. LORazepam 0.5 mg oral tablet (20 sources) Benzodiazepine Start: 2 End: 5 take 1 tablet by mouth once daily as needed for anxiety Lorazepam 0.5 mg tablet Active 0.5 mg PO DAILY NEEDED as needed for Anxiety January 30, 2022 12:00am take 1 tablet by liana th every [...] mg by mouth twice daily as needed. 24 hr metoprolol succinate 25 mg extended release oral tablet (5 sources) beta-Adrenergic Luis Start: 01-20-2025 take 2 tablets by mouth twice daily Metoprolol Succinate 25 mg tablet extended release 24 hr Active 12.5 mg PO TWICE A DAY January 20, 2025 12:00am Start: 01-10-2025 End: 01-14-2026 take 0.5 tablet by mouth twice daily metoprolol tartrate (Lopressor) 25 mg tablet Indications: S/P MVR (mitral valve repair) Take 0.5 tablets (12.5 mg) by mouth 2 times a day. 30 tablet 01/14/2025 11:00 AM EDT 01/14/2025 01/14/2026 Active multivitamin with minerals tablet (2 sources) Start: 01-15-2025 End: 01-15-2026 take 1 tablet by mouth once daily multivitamin with minerals tablet Indications: S/P MVR (mitral valve repair) Take 1 tablet by mouth once daily. 01/15/2025 01/15/2026 Active Naloxone (1 source) Opioid Antagonist Start: 01-09-2025 ondansetron 4 mg oral tablet (20 sources) Serotonin-3 Receptor Antagonist Start: 10-24-2021 take 4 mg by mouth every six hours Ondansetron Hcl Active 4 MG PO EVERY 6 HOURS October 24, 2021 12:00am Start: 03-19-2021 End: 01-20-2025 take 1 tablet by mouth every eight hours as needed for nausea Ondansetron 4 MG tablet Discontinued 4 mg PO EVERY 8 HOURS NEEDED as needed for Nausea March 19, 2021 1:00am January 20, 2025 12:37am Comment on above: Take 4 mg by mouth e very 8 hours as needed for nausea/vomiting. polyethylene glycol 3350 23526 mg powder for oral solution (4 sources) Osmotic Laxative Start: 01-09-2025 polyethylene glycol [...] Sig (Normalized) Sig (Original) acetaminophen 325 mg / HYDROcodone bitartrate 5 mg oral tablet (1 source) Opioid Agonist Start: 02-08-2024 End: 01-20-2025 Hydrocodone-Aceta minophen 5-325 mg tablet Discontinued 1 {tbl} PO EVERY 6 HOURS NEEDED as needed for Pain 10 3 0 February 08, 2024 January 20, 2025 12:37am Acute myofascial strain of lumbosacral region Strain of muscle, fascia and tendon of lower back, initial encounter 200 actuat albuterol 0.09 mg/actuat metered dose [...] to use standard hypersensitivity orders per protocol. methocarbamol 500 mg oral tablet (3 sources) Muscle Relaxant Start: 01-09-2025 End: 01-12-2025 take 500 mg by mouth every six hours norethindrone acetate 5 mg oral tablet (20 sources) Start: 11-05-2021 take 1 tablet by mouth once daily [...] Classification Problem Date Documented Da te Episodic/Chronic Abdominal pain (2 sources) Pain in pelvis; Translations: [Pelvic and perineal pain] Onset: 4 Resolved: 5 01-24-2025 Episodic Anxiety disorders (20 sources) Anxiety; Translations: [Panic disorder] Onset: 5 Resolved: 5 07-18-2019 Chronic Asthma (20 sources) Asthma; Translations: [Unspecified asthma, uncomplicated] Onset: 5 02-19-2016 Chronic Cardiac and circulatory congenital anomalies (20 sources) Congenital complete atrioventricular heart block; Translations: [Congenital heart block] Onset: 6 Resolved: 5 12-01-2018 Chronic Comment on above: Resolved status post dual-chamber ICD placement. Conditions associated with dizziness or vertigo (20 [...] for many years for this. [facility] Congestive heart failure; nonhypertensive (2 sources) Acute exacerbation of chronic congestive heart failure; Translations: [Heart failure, unspecified] Onset: 5 Resolved: 5 01-20-2025 Chronic Deficiency and other anemia (20 sources) Iron deficiency anemia due to blood loss; Translations: [Iron deficiency anemia secondary to blood loss (chronic)] Onset: 2 Resolved: 5 Chronic Deficiency and other anemia (1 source) Anemia, unspecified; Translations: [Postoperative anemia] Onset: 5 Episodic Diseases of white blood cells (1 source) Elevated white blood cell count, unspecified; Translations: [Leukocytosis, unspecified type] Onset: 5 Chronic Endometriosis (20 sources) Uterine adenomyosis; Translations: [Endometriosis of uterus] Onset: 2 Resolved: 5 Chronic Esophageal disorders (8 sources) Gastroesophageal reflux disease; Translations: [Gastro-esophageal reflux disease without esophagitis] Onset: 4 07-18-2023 Chronic Gastritis and duodenitis (5 sources) Chronic gastritis; Translations: [Unspecified chronic gastritis without bleeding] Onset: 4 Resolved: 5 01-02-2025 Chronic Headache; including migraine (10 sources) Migraine with aura; Translations: [Migraine with aura, not intractable, without status migrainosus] Onset: 4 Resolved: 5 Chronic Heart valve disorders (20 sources) Mitral valve regurgitation; Translations: [Tricuspid valve lesion] Onset: 5 Resolved: 5 02-11-2021 Chronic Hemorrhoids (7 sources) Hemorrhoids; Translations: [Unspecified hemorrhoids] Onset: 5 Resolved: 5 07-18-2023 Episodic Mood disorders (20 sources) Bipolar disorder; Translations: [Bipolar disorder, unspecified] Onset: 9 12-01-2018 Chronic Nonspecific chest pain (12 sources) Chest pain; Translations: [Chest pain, unspecified] Onset: 3 Resolved: 5 06-05-2021 Episodic Other female genital disorders (20 sources) Abnormal uterine bleeding; Translations: [Abnormal uterine and vaginal bleeding, unspecified] Onset: 2 Resolved: 5 Chronic Other gastrointestinal disorders (1 source) Constipation, unspecified; Translations: [Constipation, unspecified constipation type] Onset: 4 Episodic Other gastrointestinal disorders (3 sources) Other fecal abnormalities; Translations: [Other fecal abnormalities] Onset: 5 Episodic Other lower respiratory disease (6 sources) Dyspnea; Translations: [Dyspnea, unspecified] 06-05-2021 Episodic Other lower respiratory disease (14 sources) Dyspnea on exertion; Translations: [Other forms of dyspnea] Onset: 5 11-25-2021 Episodic Comment on above: NYHA functional clas s II. We will continue to monitor this closely Other nutritional; endocrine; and metabolic disorders (20 sources) Metabolic syndrome X; Translations: [Metabolic syndrome] Onset: 6 Resolved: 5 06-12-2005 Chronic Other nutritional; endocrine; and metabolic disorders (20 sources) Obese class I; Translations: [Obesity, unspecified] Onset: 1 Resolved: 5 08-21-2020 Chronic Other screening for suspected conditions [...] moderate posterior directly MR. Mild TR and CT. RVSP 21 mmHg. Residual codes; unclassified (20 sources) Periodic limb movement disorder; Translations: [Periodic limb movement disorder] Onset: 1 08-23-2020 Chronic Residual codes; unclassified (5 sources) Periodic leg movements of sleep ; Translations: [Periodic limb movement disorder] Onset: 1 Resolved: 5 01-02-2025 Chronic Residual codes; unclassified (6 sources) History of repair of mitral valve; Translations: [Other specified postprocedural states] Onset: 5 01-14-2025 Episodic Residual codes; unclassified (3 sources) Other specified postprocedural states; Translations: [Recent major surgery] Onset: 5 Episodic Screening and history of mental health and substance abuse codes (10 sources) H/O: anxiety state; Translations: [Personal history of other mental and behavioral disorders] Onset: 5 Resolved: 5 04-15-2023 Episodic Unclassified (1 source) Low back pain, unspecified; Translations: [Low back pain, unspecified] Onset: 4 Past or Other Problems Problem Classification Problem Date Documented Da te Episodic/Chronic Cardiac dysrhythmias (9 sources) Multiple premature ventricular complexes; Translations: [Ventricular premature depolarization] Onset: 5 Resolved: 5 03-25-2023 Chronic Cardiac dysrhythmias (9 sources) Palpitations; Translations: [Palpitations] Onset: 5 Resolved: 5 03-25-2023 Episodic Deficiency and other anemia (2 sources) Hemoglobinopathy; Translations: [Other hemoglobinopathies] Onset: 5 Resolved: Chronic Deficiency and other anemia (11 sources) Anemia; Translations: [Anemia, unspecified] Onset: 5 Resolved: 5 11-25-2021 Episodic E Codes: Fall (2 sources) Fall; Translations: [Unspecified fall, initial encounter] Onset: 5 Resolved: 5 02-16-2024 Episodic Gastrointestinal hemorrhage (8 sources) Hematochezia; Translations: [Melena] Onset: 4 Resolved: 5 Episodic Headache; including migraine (1 source) Cervicogenic headache; Translations: [Cervicogenic headache] Onset: 4 Resolved: 5 01-24-2025 Episodic Menstrual disorders (13 sources) Intermenstrual bleeding - irregular; Translations: [Excessive and frequent menstruation with irregular cycle] Onset: 5 Resolved: 5 Chronic Other and unspecified benign neoplasm (5 sources) Tubular adenoma of colon; Translations: [Benign neoplasm of colon, unspecified] Onset: 4 Resolved: 5 01-02-2025 Episodic Other ear and sense organ disorders (1 source) Tinnitus; Translations: [Tinnitus, unspecified ear] Onset: 4 Resolved: 5 01-24-2025 Episodic Other gastrointestinal disorders (2 sources) Intestinal malabsorption; Translations: [Intestinal malabsorption, unspecified] Onset: 5 Resolved: 5 Chronic Other gastrointestinal disorders (20 sources) Chronic constipation; Translations: [Other constipation] Onset: 6 02-19-2016 Episodic Other gastrointestinal disorders (12 sources) Constipation; Translations: [Constipation, unspecified] Onset: 6 Resolved: 5 Episodic Other gastrointestinal disorders (5 sources) History of gastrointestinal bleed; Translations: [Personal history of other diseases of the digestive system] Onset: 4 Resolved: 5 01-02-2025 Episodic Other gastrointestinal disorders (1 source) Dysphagia; Translations: [Dysphagia, unspecified] Onset: 4 Resolved: 5 01-24-2025 Episodic Other nervous system disorders (8 sources) Sensation of being warm; Translations: [Other disturbances of skin sensation] Onset: 5 Resolved: 5 04-15-2023 Episodic Other upper respiratory infections (9 sources) Acute pharyngitis; Translations: [Acute pharyngitis, unspecified] Onset: 5 Resolved: 5 06-16-2022 Episodic Residual codes; unclassified (9 sources) Sleep apnea; Translations: [Sleep apnea, unspecified] Onset: 5 Resolved: 5 09-21-2023 Chronic Spondylosis; intervertebral disc disorders; other back problems (6 sources) Low back pain; Translations: [Low back pain, unspecified] Onset: 4 Resolved: 5 08-26-2025 Episodic Sprains and strains (2 sources) Lower back injury; Translations: [Strain of muscle, fascia and tendon of lower back, initial encounter] Onset: 5 Resolved: 5 02-16-2024 Episodic Thyroid disorders (6 sources) Thyroid nodule; Translations: [Nontoxic single thyroid nodule] Onset: 3 Resolved: 5 01-02-2025 Chronic Unclassified (4 sources) Onset: 5 01-05-2025 Viral infection (11 sources) Disease caused by 2019-nCoV; Translations: [COVID-19] Onset: 5 Resolved: 5 05-28-2021 Episodic Results Test Name Value Interpretation Reference Range Facility Inital Evaluation (1) - PTon 01-26-2025 Inital Evaluation (1) - PT [facility] [address] [place] [address]. [address] [place] [address] / REHABILITATION SERVICES INITIAL EVALUATION MR#: [id number] Acct: [id number] Name: MICHELL WOOTEN Rep #: [id number] : 1975 49 From: Rick Roman DPT Referring Dr.: DUSTIN PADRON Status: REG [facility] Insurance: [facility] SELF PAY INSURANCE Patient's Visit Information Visit Information Visit Information: MICHELL WOOTEN is a 49 year old F referred to Physical Therapy by DUTSIN PADRON with a diagnosis of Mitral valve replacement, 01/09/25. Date of Evaluation: 01/19/25 Physical Therapist: Rick Roman DPT Visit Plan Frequency: 2x /Week Duration: 6 Weeks Plan: 1) quad, hip strengthening 2) endurance progression (nustep, gait, functional strengthening) Use RPE scale, stay below 13/20 on scale. Subjective Subjective: Pt. is here today for her initial evaluation with diagnosis of mitral valve replacement. Pt. reports having heart surgery on 01/09. Pt. reports overall doing well, but feels run down. Pt. is walkign short distances and attempting to walk more. Pt. is using per stability pillow as prescribed. Pt. does have a history of heart surgery when she was 16. Pt. reports no chest pains. Pt. does have some dizzy spells, but has been much less frequent. Pt. reports no major muscle weakness. Pt. does report having some difficulty with increased activities and is a bit apprehensive to complete due to fear of heart issues. Pt. is hopeful to get back to all recreational activities without limitations. Objective Objective: POSTURE: Pt. has slight fwrd flexed posture. Pt. has has normal [place]. PALPATION: Pt. has normal healing incision no signs of infection. NEURO: normal ROM: normal, tightness in B HS. MMT: Pt. has 5-/5 throughout BLEs. 30sec sit to stand test: 7 without use of UEs. TU.8sec no AD GAIT: fairly normal gait pattern without issues. STAIRS: Very fatiguing. Pt. is able to complete with reciprocal pattern and 2 HR. 6 MWT: 325' with multiple standing rest periods. 12/20 on NILSA RPE SCALE Pt. reports being very anxious with any activities. Pt. maintained below 115BPM with activities today and had BP at 115/87 pre treatment- 121/89 post walking. Balance/Special Test Scores Lower Extremity Functional Score: 40 Goals Goal 1:: LTG: Pt. to be able to complete 6 MWT with distance of at least 1200' with less than 12/20 on NILSA RPE scale Goal Time Frame: 4-6 Weeks Goal 2:: LTG: Pt. to negotiate stairs with normal pattern and less than 12/20 on RPE scale. Goal Time Frame: 4-6 Weeks Goal 3:: LTG: Pt. to complete 17 reps with 30sec sit to stand test. Goal Time Frame: 4-6 Weeks Goal 4:: LTG: Pt. to complete TUG with time less than 10seconds. Goal Time Frame: 4-6 Weeks Rehabilitation Potential Physical Therapy Diagnosis: Pt. has signs and symptoms consistent with generalized weakness S/P mitral valve replacement on 01/09/25. Pt. has marked decreased endurance and difficulty with f unctional mobility. She would benefit from PT. to address the above limitations progressing back to all previous levels of activities without limitations. Rehabilitation Potential: Good Anticipated Interventions Patient/Client Instruction: Educate patient on: Condition, Plan of Care, Risk Factors and Benefits of Fitness Program For the Purpose of:: To improve decision making, To facilitate caregiver knowledge, To improve self management, To prevent re-injury and To improve ability to perform tasks related to life management Therapeutic Exercise to Include: Strength training, Power training, Endurance training and Gait and locomotor training For the Purpose of:: To decrease pain, To decrease swelling/inflammatio n, To increase ROM, To improve ability to perform ADL's, To improve gait and locomotor functions, To improve health of tissue and To improve endurance Text: Thank you for the opportunity to evaluate your patient. For Medicare and Medicare HMO plans, please review the plan of care and approve it. It will need to be FAXED BACK to us at [phone] for Medicare purposes. For Medicare only, by signing this I certify the plan of care. Please let me know if there are questions or concerns regarding this plan of care. Physician Signature: D ate: 01/26/25 1148 CC: Dr. Mihir Glover MD; DUSTIN PADRON CLS Signed Normal [facility] C diff Tox gens Stl Ql XIOMARA+p robeon 01-25-2025 C. difficile toxin genes XIOMARA+probe Ql (Stl) Negative Normal Negative for C. difficile toxin by PCR [facility] Comment on above: Order Comment: Speci men Type: STOOL SPECIMEN Ordering Facility: [facility] Address: [address] [place] [address] Performed By: #### 5 4067-4 #### [facility] CLIA [id number] [address] [place] [address] OF [facility] CNOVon 01-25-2025 CNOV Office Visit (FAMPWS) MICHELL WOOTEN ([id number]) 1975 F Date Time Provider Department 01/25/25 2:40 PM VEENA CELESTE During your visit today, we recorded the following information about you: Temperature Pulse Respiration Blood pressure 98.2 degrees 90/minute 12/minute 118/60 Weight 98.4 kg Veena Celeste APRN.DIRECTOR OF SOCIAL MEDIA MARKETING 01/26/2025 6:54 PM Signed This is a 49 year old adult who presents today with: diarrhea Nurse triage note: Reason for Conversation Diarrhea Background Patient calls for diarrhea x 2 days that is now water and green in color. Nurse triage completed and protocol recommends see provider within 24 hours. No availability with dyad. Scheduled with available provider. Care advice reviewed with verbalized understanding. Initial Assessment 1. DIARRHEA SEVERITY: - MODERATE (SCALE 4-7): Increase of 4-6 stools daily over normal; moderate increase in ostomy output. 2. ONSET: Two days ago. 3. STOOL DESCRIPTION: Started off loose and now water. Patient reports it is green in color. No blood noted. 4. VOMITING: No vomiting but some nausea yesterday. 5. ABDOMEN PAIN: Intermittent cramping. 6. ABDOMEN PAIN SEVERITY: - MILD (1-3): Doesn't interfere with normal activities, abdomen soft and not tender to touch. TO - MODERATE (4-7): Interferes with normal activities or awakens from sleep, abdomen tender to touch. 7. ORAL INTAKE:No vomiting. 8. HYDRATION: No dry mouth [not just dry lips], too weak to stand, dizziness. Urinating per usual. Weight loss but expected d/t change in diet. 9. EXPOSURE: No travel, exposure, or spoiled food. 10. ANTIBIOTIC USE: Within the last 2 months but not recently. During hospital for mitral valve repair patient was on antibiotics but she doesn't recall what. 11. OTHER SYMPTOMS: No fever or blood in stool. HISTORY OF PRESENT ILLNESS: Diarrhea: - Onset post-surgery (2nd of this month- mitral valve repair, open heart) - Watery diarrhea began on the 7th; initially bright green, now dark green. - Episodes of explosive diarrhea associated with gas and abdominal cramping. - Bowel movements 4 times yesterday, described as gassy, watery. - One bowel movement today, described as mushy. - Michell denies hematochezia, melena, or mucus in stools. - Michell reports burning sensation during defecation - No known dietary triggers; maintains a balanced diet, avoids fast food and sweets now. The diarrhea is random and not dependent on intake - Recent WBC count elevated; Michell experienced a brief fever of 99.1?F the other day - Michell received multiple antibiotics intravenously during hospital stay beginning of this month Mitral Valve Repair: - Recent mitral valve repair surgery. - Michell's weight loss from 235 lbs to 217 lbs over 2 months. - Michell reports tachycardia and labile blood pressure; hypotension with increased activity. - Current BP readings: 136/92 mmHg (morning), 129/90 mmHg (today), 117/87 mmHg (today). - Michell is taking metoprolol 25 mg 1/2 tab (12.5mg) BID. - Michell is scheduled to start cardiac rehab next week. - Follow-up with radiation protection technician soon Asthma Controlled per patient, denies exacerbations recently PAST MEDICAL HISTORY: PAST MEDICAL HISTORY Diagnosis Date Abnormal uterine bleeding (AUB) 12/30/2021 Adenomyosis 12/30/2021 Asthma (HCC) Atrial tachycardia (HCC) 2009 Atrioventricular block, complete (HCC) 07/31/2005 3rd degree AVB Bipolar affective (HCC) Dr. 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 Last Assessment AND Plan: Underwent successful RA lead extraction and replacement yesterday, 09/01 CXR demonstrates no pneumothroax Device interrogation pending Headache(784.0) MIGRAINES WITH AURA Mitral regurgitation 11/29/2017 Panic disorder without agoraphobia 11/19/2011 Follows at [facility] Bipolar disorder possible, to be r/o (09/25/11) Primary cardiomyopathy (HCC) non ischemic PTSD (post-traumatic stress disorder) 11/19/2011 Follows at [facility] Rectal bleeding 09/04/2022 S/P MVR (mitral valve repair) 01/09/2025 Gordon Armstrong MD [facility] Schizoaffective disorder Severe mitral regurgitation 09/08/2024 Unspecified schizophrenia Schizophrenia PAST SURGICAL HISTORY Procedure Laterality Date DELIVERY ONLY TIMES THREE DANDC, DIAG AND/OR THERAPEUTIC 02/05/2022 HYSTEROSCOPY ENDOMETRIAL ABLATION 02/05/2022 Marcella ablation ICD GENERATOR CHANGE 07/19/2020 [facility] IMPLANTABLE CARDIOVERTER DEFIBRILLATOR 05/10/2009 defib/pacer- [facility], Dr Hardy LEFT AND RIGHT HEART CATH 11/16/2024 LIG/TRNSXJ FLP TUBE ABDL/VAG APPR UNI/BI PERMANENT PACEMAKER INSERTION 01/08/19 (more content not included)... Normal [facility] Basic metabolic 2000 panelon 01-22-2025 Anion gap [Moles/Vol] 15 mmol/L Normal 8-15 [facility] Comment on above: Order Comment: Speci men Type: BLOOD SPECIMEN Ordering Facility: [facility] Address: [address] [place] [address] Performed By: #### 2 432-2, #### [facility] CLIA [id number] [address] [place] [address] [place] Calcium [Mass/Vol] 8.8 mg/dL Normal 8.5-10.2 [facility] Comment on above: Order Comment: Speci men Type: BLOOD SPECIMEN Ordering Facility: [facility] Address: [address] [place] [address] Performed By: #### 2 432-2, #### [facility] CLIA [id number] [address] [place] [address] [place] Chloride [Moles/Vol] 104 mmol/L Normal 98-107 [facility] Comment on above: Order Comment: Speci men Type: BLOOD SPECIMEN Ordering Facility: [facility] Address: [address] [place] [address] Performed By: #### 2 432-2, #### [facility] CLIA [id number] [address] [place] [address] [place] CO2 [Moles/Vol] 20 mmol/L Low 22-30 [facility] Comment on above: Order Comment: Speci men Type: BLOOD SPECIMEN Ordering Facility: [facility] Address: [address] [place] [address] Performed By: #### 2 432-2, #### [facility] CLIA [id number] [address] [place], [place] [id number] [place] Creatinine [Mass/Vol] 0.83 mg/dL Normal 0.73-1.22 [facility] Comment on above: Order Comment: Speci men Type: BLOOD SPECIMEN Ordering Facility: [facility] Address: [address] [place] [address] Performed By: #### 2 2, #### [facility] CLIA [id number] [address] [place] [address] [place] eGFRcr SerPlBld CKD-EPI 2020 87 mL/min/1.73m??? Normal >=60 [facility] Comment on above: Order Comment: Speci men Type: BLOOD SPECIMEN Ordering Facility: [facility] Address: [address] [place] [address] Result Comment: Patrica mated Glomerular Filtration Rate (eGFR) is calculated using the 2020 CKD-EPI creatinine equation. This equation utilizes serum creatinine, sex, and age as parameters. The creatinine assay has traceable calibration to isotope dilution-mass spectrometry. Refer to KDIGO guidelines for clinical interpretation. In patients with unstable renal function, e.g. those with acute kidney injury, the eGFR may not accurately reflect actual GFR. Performed By: #### 2 4320-2, #### [facility] CLIA [id number] [address] [place] [address] [place] Glucose [Mass/Vol] 143 mg/dL High 74-99 [facility] Comment on above: Order Comment: Speci men Type: BLOOD SPECIMEN Ordering Facility: [facility] Address: [address] [place] [address] Result Comment: The [place] Diabetes Association (ADA) provides guidance for cutoff values for fasting glucose and random glucose. The ADA defines fasting as no caloric intake for at least 8 hours. Fasting plasma glucose results between 100 to 125 mg/dL indicate increased risk for diabetes (prediabetes). Fasting plasma glucose results greater than or equal to 126 mg/dL meet the criteria for diagnosis of diabetes. In the absence of unequivocal hyperglycemia, results should be confirmed by repeat testing. In a patient with classic symptoms of hyperglycemia or hyperglycemic crisis, random plasma glucose results greater than or equal to 200 mg/dL meet the criteria for diagnosis of diabetes. Reference: Standards of Medical Care in Diabetes 2016, [place] Diabetes Association. Diabetes Care. 2016.39(Suppl 1). Performed By: #### 2 1-2, #### [facility] CLIA [id number] [address] [place] [address] [place] Potassium [Moles/Vol] 3.9 mmol/L Normal 3.7-5.1 [facility] Comment on above: Order Comment: Speci men Type: BLOOD SPECIMEN Ordering Facility[facility] Address: [address] [place] [address] Performed By: #### 2 4320-06, #### [facility] CLIA [id number] [address] [place] [address] [place] Sodium [Moles/Vol] 139 mmol/L Normal 136-144 [facility] Comment on above: Order Comment: Speci men Type: BLOOD SPECIMEN Ordering Facility[facility] Address: [address] [place] [address] Performed By: #### 2 4320-06, #### [facility] CLIA [id number] [address] [place] [address] [place] Urea nitrogen [Mass/Vol] 12 mg/dL Normal 7-21 [facility] Comment on above: Order Comment: Speci men Type: BLOOD SPECIMEN Ordering Facility: [facility] Address: [address] [place] [address] Performed By: #### 2 4320-06, #### [facility] CLIA [id number] [address] [place] [address] [place] CBC panel Auto (Bld)on 01-22 Erythrocyte distribution width (RBC) [Ratio] 14.2 % Normal 11.5-15.0 [facility] Comment on above: Order Comment: Speci men Type: BLOOD SPECIMEN Ordering Facility: [facility] Address: [address] [place] [address] Performed By: #### 5 8410-2 #### [facility] CLIA [id number] [address] [place] [address] [place] Hematocrit (Bld) [Volume fraction] 36.1 % Low 39.0-51.0 [facility] Comment on above: Order Comment: Speci men Type: BLOOD SPECIMEN Ordering Facility[facility] Address: [address] [place] [address] Performed By: #### 5 8410-2 #### [facility] CLIA [id number] [address] [place] [address] [place] Hemoglobin (Bld) [Mass/Vol] 11.8 g/dL Low 13.0-17.0 [facility] Comment on above: Order Comment: Speci men Type: BLOOD SPECIMEN Ordering Facility: [facility] Address: [address] [place] [address] Performed By: #### 5 8410-2 #### [facility] CLIA [id number] [address] [place] [address] [place] MCH (RBC) [Entitic mass] 28.3 pg Normal 26.0-34.0 [facility] Comment on above: Order Comment: Speci men Type: BLOOD SPECIMEN Ordering Facility[facility] Address: [address] [place] [address] Performed By: #### 5 8410-2 #### [facility] CLIA [id number] [address] [place] [address] [place] MCHC (RBC) [Mass/Vol] 32.7 g/dL Normal 30.5-36.0 [facility] Comment on above: Order Comment: Speci men Type: BLOOD SPECIMEN Ordering Facility[facility] Address: [address] [place] [address] Performed By: #### 5 8410-2 #### [facility] CLIA [id number] [address] [place] [address] [place] MCV (RBC) [Entitic vol] 86.6 fL Normal 80.0-100.0 [facility] Comment on above: Order Comment: Speci men Type: BLOOD SPECIMEN Ordering Facility[facility] Address: [address] [place] [address] Performed By: #### 5 8410-2 #### [facility] CLIA [id number] [address] [place] [address] [place] Nucleated RBC (Bld) [#/Vol] 10*3/uL Normal <0.01 [facility] Comment on above: Order Comment: Speci men Type: BLOOD SPECIMEN Ordering Facility[facility] Address: [address] [place] [address] Performed By: #### 5 8410-2 #### [facility] CLIA [id number] [address] [place] [address] [place] Platelet mean volume (Bld) [Entitic vol] 11.8 fL Normal 9.0-12.7 [facility] Comment on above: Order Comment: Speci men Type: BLOOD SPECIMEN Ordering [facility] Address: [address] [place] [address] Performed By: #### 5 8410-2 #### [facility] CLIA [id number] [address] [place] [address] [place] Platelets (Bld) [#/Vol] 333 10*3/uL Normal 150-400 [facility] Comment on above: Order Comment: Speci men Type: BLOOD SPECIMEN Ordering [facility] Address: [address] [place] [address] Performed By: #### 5 8410-2 #### [facility] CLIA [id number] [address] [place] [address] [place] RBC (Bld) [#/Vol] 4.17 10*6/uL Low 4.20-6.00 [facility] Comment on above: Order Comment: Speci men Type: BLOOD SPECIMEN Order[facility] Address: [address] [place] [address] Performed By: #### 5 8410-2 #### [facility] CLIA [id number] [address] [place] [address] [place] WBC (Bld) [#/Vol] 12.28 10*3/uL High 3.70-11.00 [facility] Comment on above: Order Comment: Speci men Type: BLOOD SPECIMEN Ordering [facility] Address: [address] [place] [address] Performed By: #### 5 8410-2 #### [facility] CLIA [id number] [address] [place] [address] [place] Magnesium SerPl-mCncon 01-22 Magnesium [Mass/Vol] 2.1 mg/dL Normal 1.7-2.3 [facility] Comment on above: Order Comment: Speci men Type: BLOOD SPECIMEN Ordering [facility] Address: [address] [place] [address] Performed By: #### 2 4321-2, 47491-9 #### [facility] CLIA [id number] [address] [place] [address] [place] 12 Lead EKGon 01-20-2025 12 Lead EKG [facility] [address] [place] [address] 12 Lead EKG 01/20/25 0106 MR#: [id number] Acct: [id number] Name: MICHELL WOOTEN Rep #: [id number] : 1975 49 From: Mauricio Alexander MD Attending Dr: Status: DEP ER Ordering Dr: Gaston Guzman DO Date: 5 Location: ED Sex: F C Admitted: Test Reason : DYSRHYTHMIA Blood Pressure : */* mmHG Vent. Rate : 92 BPM Atrial Rate : 92 BPM P-R Int : 142 ms QRS Dur : 162 ms QT Int : 442 ms P-R-T Axes : 23 226 53 degrees QTcB Int : 546 ms Atrial-sensed ventricular-paced rhythm Biventricular pacemaker detected Abnormal ECG Confirmed by Mauricio Alexander ([id number]), content editor DIANA BREEN ([id number]) on 01/22/2025 1:13:09 PM Referred By: AK Confirmed By: Mauricio Alexander 01/22/25 1313 Date Mauricio Alexander MD CC: Dr. Gaston Guzman DO; Dr. Mihir Glover MD Signed Normal [facility] Absolute lymphocyte countOrd ered By: Gaston Guzman on 01-20-2025 Lymphocytes Auto (Unsp spec) [#/Vol] 2.18 10*3/uL 0.83-4.51 [facility] Absolute neutrophil countOrd ered By: Gaston Guzman on 01-20-2025 Neutrophils (Bld) [#/Vol] 6.9 10*3/uL 2.0-7.7 [facility] Activated partial thrombopla stin time (aPTT) in platelet poor plasma by coagulation aOrdered By: Gaston Guzman on 01-20-2025 aPTT Coag (PPP) [Time] 25.3 s 24.1-36.2 [facility] Anion gap in Serum or Plasma Ordered By: Gaston Guzman on 01-20-2025 Anion gap [Moles/Vol] 13 mmol/L 5-15 [facility] Automated lymphocyte count a s percentage of total leukocytesOrdered By: Gaston Guzman on 01-20-2025 Lymphocytes/100 WBC Auto (Unsp spec) 21.2 % [facility] BUN/creatinine ratioOrdered By: Gaston [facility] 01-[facility]-2025 Urea nitrogen/Creatinine [Mass ratio] 20.0 mg/mg 02-26 [facility] Basic Metabolic Profile (BMP )on 01-20-2025 BUN/CRE 20.0 RATIO Normal - [facility] Comment on above: Performed By: #### L 503.7505, L100.0100, L501.4021, L500.2500 #### [facility] [address] [place], [address] Calcium [Mass/Vol] 8.8 mg/dL Normal 7.6-11.0 [facility] Comment on above: Performed By: #### L 503.7505, L100.0100, L501.4021, L500.2500 #### [facility] [address] [place], [address] Chloride [Moles/Vol] 105 mmol/L Normal 98-108 [facility] Comment on above: Performed By: #### L 503.7505, L100.0100, L501.4021, L500.2500 #### [facility] [address] [place], [address] CO2 [Moles/Vol] 21.3 mmol/L Normal 21.0-32.0 [facility] Comment on above: Performed By: #### L 503.7505, L100.0100, L501.4021, L500.2500 #### [facility] [address] [place], [address] Creatinine [Mass/Vol] 0.90 mg/dL Normal 0.70-1.20 [facility] Comment on above: Performed By: #### L 503.7505, L100.0100, L501.4021, L500.2500 #### [facility] [address] [place], [address] ECRCL 96.69 ml/min Normal 50-250 [facility] Comment on above: Performed By: #### L 503.7505, L100.0100, L501.4021, L500.2500 #### [facility] [address] [place], [address] GAP 13 Normal 5-15 [facility] Comment on above: Performed By: #### L 503.7505, L100.0100, L501.4021, L500.2500 #### [facility] [address] [place], [address] GFR/1.73 sq M.predicted among non-blacks MDRD (S/P/Bld) [Vol rate/Area] 78 mL/min/{1.73_m2} Normal >60 [facility] Comment on above: Result Comment: mL/m in/1.73m2 CKD-EPI Creatinine Equation (2020) Performed By: #### L 503.7505, L100.0100, L501.4021, L500.2500 #### [facility] [address] [place], [address] Glucose [Mass/Vol] 113 mg/dL High 70-99 [facility] Comment on above: Performed By: #### L 503.7505, L100.0100, L501.4021, L500.2500 #### [facility] [address] [place], [address] Potassium [Moles/Vol] 3.5 mmol/L Normal 3.3-5.1 [facility] Comment on above: Performed By: #### L 503.7505, L100.0100, L501.4021, L500.2500 #### [facility] [address] [place], [address] Sodium [Moles/Vol] 139 mmol/L Normal 133-145 [facility] Comment on above: Performed By: #### L 503.7505, L100.0100, L501.4021, L500.2500 #### [facility] [address] [place], [address] Urea nitrogen [Mass/Vol] 18 mg/dL Normal 4-19 [facility] Comment on above: Performed By: #### L 503.7505, L100.0100, L501.4021, L500.2500 #### [facility] [address] [place], [address] Basophil percentageOrdered B y: Gaston Guzman on 01-20-2025 Basophils/100 WBC (Bld) 0.4 % 0-1 [facility] Bilirubin Test strip Ql (U)O rdered By: Gaston Guzman on 01-20-2025 Bilirubin Ql (U) Negative Negative [facility] CBC W/Diff, Automatedon 01-08 Absolute Lymph 2.18 X10 3/uL Normal 0.83-4.51 [facility] Comment on above: Performed By: #### L 503.7505, L100.0100, L501.4021, L500.2500 #### [facility] [address] [place], [address] Absolute Neut 6.9 X10 3/uL Normal 2.0-7.7 [facility] Comment on above: Performed By: #### L 503.7505, L100.0100, L501.4021, L500.2500 #### [facility] [address] [place], [address] Basophils/100 WBC (Bld) 0.4 % Normal 0-1 [facility] Comment on above: Performed By: #### L 503.7505, L100.0100, L501.4021, L500.2500 #### [facility] [address] [place], [address] Eosinophils/100 WBC (Bld) 4.3 % Normal 0-5 [facility] Comment on above: Performed By: #### L 503.7505, L100.0100, L501.4021, L500.2500 #### [facility] [address] [place], [address] Erythrocyte distribution width (RBC) [Ratio] 13.9 % Normal 11.6-14.6 [facility] Comment on above: Performed By: #### L 503.7505, L100.0100, L501.4021, L500.2500 #### [facility] [address] [place], [address] Hematocrit (Bld) [Volume fraction] 34.1 % Low 37-47 [facility] Comment on above: Performed By: #### L 503.7505, L100.0100, L501.4021, L500.2500 #### [facility] [address] [place], [address] Hemoglobin (Bld) [Mass/Vol] 11.2 g/dL Low 12.0-15.0 [facility] Comment on above: Performed By: #### L 503.7505, L100.0100, L501.4021, L500.2500 #### [facility] [address] [place], [address] IG% 0.500 Normal 0.0-0.9 [facility] Comment on above: Result Comment: IG% - Immature Granulocytes (promyelocytes, myelocytes and metamyelocytes) > 1% indicates that a LEFT SHIFT is Present. Performed By: #### L 503.7505, L100.0100, L501.4021, L500.2500 #### [facility] [address] [place], [address] Lymphocytes/100 WBC (Bld) 21.2 % Normal 19-41 [facility] Comment on above: Performed By: #### L 503.7505, L100.0100, L501.4021, L500.2500 #### [facility] [address] [place], [address] MCH (RBC) [Entitic mass] 28.3 pg Normal 27.0-32.0 [facility] Comment on above: Performed By: #### L 503.7505, L100.0100, L501.4021, L500.2500 #### [facility] [address] [place], [address] MCHC (RBC) [Mass/Vol] 32.8 g/dL Normal 32-36 [facility] Comment on above: Performed By: #### L 503.7505, L100.0100, L501.4021, L500.2500 #### [facility] [address] [place], [address] MCV (RBC) [Entitic vol] 86.1 fL Normal 81-99 [facility] Comment on above: Performed By: #### L 503.7505, L100.0100, L501.4021, L500.2500 #### [facility] [address] [place], [address] Monocytes/100 WBC (Bld) 6.0 % Normal 0-10 [facility] Comment on above: Performed By: #### L 503.7505, L100.0100, L501.4021, L500.2500 #### [facility] [address] [place], [address] Neutrophils/100 WBC (Bld) 67.6 % Normal 47-70 [facility] Comment on above: Performed By: #### L 503.7505, L100.0100, L501.4021, L500.2500 #### [facility] [address] [place], [address] Nucleated RBC (Bld) [#/Vol] 0 10*3/uL Normal 0-5 [facility] Comment on above: Performed By: #### L 503.7505, L100.0100, L501.4021, L500.2500 #### [facility] [facility] [address] [place], [address] Platelet mean volume (Bld) [Entitic vol] 11.2 fL Normal 6.2-12.0 [facility] Comment on above: Performed By: #### L 503.7505, L100.0100, L501.4021, L500.2500 #### [facility] [address] [place], [address] Platelets (Bld) [#/Vol] 313 10*3/uL Normal 150-450 [facility] Comment on above: Performed By: #### L 503.7505, L100.0100, L501.4021, L500.2500 #### [facility] [address] [place], [address] RBC (Bld) [#/Vol] 3.96 10*6/uL Low 4.2-5.4 [facility] Comment on above: Performed By: #### L 503.7505, L100.0100, L501.4021, L500.2500 #### [facility] [address] [place], [address] RDW SD 43.1 fl Normal 35.1-43.9 [facility] Comment on above: Performed By: #### L 503.7505, L100.0100, L501.4021, L500.2500 #### [facility] [address] [place], [address] WBC (Bld) [#/Vol] 10.3 10*3/uL Normal 4.4-11.0 [facility] Comment on above: Performed By: #### L 503.7505, L100.0100, L501.4021, L500.2500 #### [facility] [address] [place], [address] CTA Chest W/WO Contraston CTA Chest W/WO Contrast [facility] Imaging Services [address] [place] [address] CTA Chest W/WO Contrast MR#: [id number] Acct: [id number] Name: MICHELL WOOTEN Rep #: [id number] : 1975 F 49 From: Carolina trejo MD PCP: Dr. Mihir Glover MD Status: DEP ER Study: CTA Chest W/WO Contrast Date of Exam: 01/20/25 Exam# [id number] Ordering Dr: Gaston Guzman DO PROCEDURE: CTA CHEST W/WO CONTRAST 01/20/2025 REASON FOR EXAM: HX RECENT MITRAL VALVE REPLACEMENT, PE TECHNIQUE: Procedure Code: CTCTACHWW Modality: CT Procedure: CTA CHEST W/WO CONTRAST Multiplanar Sagittal and Coronal images were obtained. CONTRAST: Isovue 370 VOLUME: 100 mL One or more dose reduction techniques were used (e.g., Automated exposure control, adjustment of the mA and/or kV according to patient size, use of iterative reconstruction technique). RADIATION DOSE SUMMARY: CTDlvol: 15.82 mGy DLP: 486 mGycm COMPARISON: Chest radiograph on 01/20/2025. CT scan of the chest on 05/28/2021. FINDINGS: Prior CABG. Multinodular thyroid goiter without tracheal narrowing or deviation. 8 mm calcified nodule in the right thyroid lobe. Moderate bilateral pleural effusions. Passive atelectatic airspace disease/consolidatio ns of the lower lobes. AICD is in good position. Mild emphysema. Mild diffuse spondylosis. Normal enhancement of the main pulmonary artery and right and left pulmonary arteries. Normal enhancement of the bilateral peripheral pulmonary arteries. There is no demonstrated pulmonary embolism. Normal thoracic aorta and visualized great vessels. There is no demonstrated aortic dissection. Normal heart and pericardium. Normal mediastinum. Normal hilar regions. Normal visualized trachea and bronchi. CT/CTA Chest W/WO Contrast IMPRESSION: Prior CABG. Multinodular thyroid goiter without tracheal narrowing or deviation. 8 mm calcified nodule in the right thyroid lobe. Moderate bilateral pleural effusions. Passive atelectatic airspace disease/consolidatio ns of the lower lobes. AICD is in good position. Mild emphysema. Mild diffuse spondylosis. No CT evidence of pulmonary embolus or aortic dissection. Reading Location: [place] [address] CC: Dr. Gaston Guzman DO; Dr. Mihir Glover MD Chemical Librarian: Signed Normal [facility] Carbon dioxide, total [Moles /volume] in Central venous bloodOrdered By: Gaston Guzman on 01-20-2025 CO2 [Moles/Vol] 21.3 mmol/L 21.0-32.0 [facility] Chest PA and Lateralon 01-20 Chest PA and Lateral [facility] Imaging Services [address] [place] [address] [id number] Chest PA and Lateral MR#: [id number] Acct: [id number] Name: MICHELL WOOTEN Rep #: [id number] : 1975 F 49 From: Alpesh Hector MD PCP: Dr. Mihir Glover MD Status: DEP ER Study: Chest PA and Lateral Date of Exam: 01/20/25 Exam# [id number] Ordering Dr: Gaston Guzman DO PROCEDURE: CHEST PA AND LATERAL 01/20/2025 REASON FOR EXAM: CHEST PAIN TECHNIQUE: Procedure Code: RADCXR Modality: DX Procedure: CHEST PA AND LATERAL COMPARISON: 11/17/2021 FINDINGS: Hardware: EKG leads overlie the chest. Stable appearance of the left subclavian pacemaker Heart: There has been a remote CABG since the previous study Mediastinum: The mediastinal contour is unremarkable. Lungs: Lungs are expanded with superimposed bilateral pleural effusions and likely atelectasis. No organized infiltrate. Bones: Unremarkable RAD/Chest PA and Lateral IMPRESSION: Bilateral pleural effusions with bibasilar atelectasis, follow-up recommended to ensure resolution Reading Location: [id number] CC: Dr. Gaston Guzman DO; Dr. Mihir Glover MD Chemical Librarian: Signed Normal [facility] Chloride assayOrdered By: Rashel Guzman on 01-20-2025 Chloride [Moles/Vol] 105 mmol/L 98-108 [facility] Emergency Department Summary on 01-20-2025 Emergency Department Summary [facility] Medical Records Department [address] [place] [address] Emergency Department Summary 01/20/25 MR#: [id number] Acct: [id number] Name: MICHELL WOOTEN Rep #: [id number] : 1975 49 From: Gaston Guzman DO PCP: Dr. Mihir Glover MD Status:DEP ER Location: ED HPI History of Present Illness Chief Complaint: Chest Pain Narrative Narrative: Chief complaint and HPI: 49-year-old female with past medical history of congenital heart block requiring ICD at the age of 16, recent mitral valve prolapse repair on 01/27, iron deficiency anemia, cardiomyopathy, anxiety presents for evaluation of chest tightness. Patient states that she has been on Lasix since her surgery. Her last dose was today. States she has been sleeping in a recliner secondary to comfort. States she woke up this evening and felt short of breath. She states she then started to panic and have an increase in anxiety. She states she then developed chest tightness. She is not on blood thinners. Symptoms already improving. She denies any fever, chills, URI symptoms, abdominal pain, nausea, vomiting, dysuria, bilateral lower extremity swelling. Review of systems: See HPI Medications: As listed on the chart Allergies: As listed on the chart PFSH: Per chart Vital signs: As listed on the chart. Reviewed. Physical exam: Gen: A O x3, NAD but anxious Head: Normocephalic, atraumatic Eyes: No sclera icterus, conjunctiva clear, PERRL, EOMI ENT: Mildly dry mucous membranes Neck: Trachea midline, No JVD CV: RRR, no murmurs, no peripheral edema, midline chest incision healing well without overlying cellulitis or purulence Resp: Lungs CTA BL, no w/r/c GI: Abd soft, non-distended, non-tender, no r/r/g Musc: Full ROM, no deformity Skin: Warm, dry Neuro: Alert, oriented, grossly intact, sensation intact Psych: Cooperative, anxious [facility] Medical History (Updated 01/20/25 @ 05:[address] Gaston Pereira-Efrain, DO) Wears glasses Wears dentures Marijuana use Easy bruising Restless legs Migraine headache Heartburn Former smoker Sleep apnea History of edema History of echocardiogram Cardiology follow-up encounter History of pacemaker Iron deficiency anemia PTSD (post-traumatic stress disorder) Deliberate self-cutting Bulimia Panic anxiety syndrome History of complete heart block Home Medications ???Medication ???Instructions ???Recorded ???Last Taken ???Type lorazepam 0.5 mg tablet 0.5 mg PO DAILY PRN PRN Anxiety 02/05/22 History aspirin 81 mg tablet,delayed 81 mg PO DAILY 01/20/25 01/20/25 H istory release furosemide 20 mg tablet 20 mg PO DAILY 01/20/25 01/20/25 H istory furosemide 20 mg tablet (Lasix) 20 mg PO DAILY 5 days #5 tabs 01/08 08/01 Unknown Rx metoprolol succinate 25 mg 12.5 mg PO BID 01/20/25 01/20/25 H istory tablet,extended release 24 hr Allergy/AdvReac Type Severity Reaction Status Date / Time sertraline (From Zoloft) Allergy Mild Other Verified 01/20/25 00:30 tramadol Allergy Nausea Verified 01/20/25 00:30 Antihistamines - AdvReac Other Verified 01/20/25 00:30 Ethylenediamine naproxen AdvReac Other Verified 01/20/25 00:30 paroxetine HCl (From Paxil) AdvReac Other Verified 01/20/25 00:30 Family History Other Cardiac defibrillator in place Surgical History Hx of section History of endometrial ablation History of cardiac catheterization History of implantable cardiac defibrillator (ICD) Social History Smoking Status: Never smoker EXAM Physical Exam Const Vital Signs: 01/20/25 00:30 01/20/25 00:32 01/20/25 00:34 Temperature 98.6 F 98.6 F Temperature Source Oral Oral Pulse Rate 99 97 Respiratory Rate 19 H 18 Respiratory Effort Short of Breath Blood Pressure 123/80 H 123/80 H Blood Pressure Mean 94 94 Pulse Ox 99 99 Oxygen Delivery Method Room Air Room Air 01/20/25 01:28 01/20/25 02:00 01/20/25 03:00 Temperature Temperature Source Pulse Rate 87 87 89 Respiratory Rate 16 18 18 Respiratory Effort Blood Pressure 98/68 101/67 Blood Pressure Mean 78 78 Pulse Ox 98 99 97 Oxygen Delivery Method Room Air Room Air Room Air 01/20/25 04:00 01/20/25 05:00 Temperature Temperature Source Pulse Rate 87 90 Respiratory Rate 16 18 Respiratory Effort Blood Pressure 102/68 96/65 Blood Pressure Mean 79 75 Pulse Ox 98 98 Oxygen Delivery Method Room Air Room Air MDM MDM MDM Narrative Medical decision making narrative: 49-year-old female with past medical history of congenital heart block requiring ICD at the a (more content not included)... Normal [facility] Eosinophil percentageOrdered By: [facility]eth on 01-20-2025 Eosinophils/100 WBC (Bld) 4.3 % 0-5 [facility] Erythrocyte distribution wid th ratioOrdered By: [facility]cyEfrain on 01-20-2025 Erythrocyte distribution width (RBC) [Ratio] 13.9 % 11.6-14.6 [facility] Erythrocyte distribution wid th standard deviationOrdered By: [facility] Daytonivet Zuniga on 01-20-2025 Erythrocyte distribution width (RBC) [Ratio] 43.1 fl 35.1-43.9 [facility] Glomerular filtration rate ( GFR) estimation/1.73 sq m using serum, plasma, or whole bOrdered By: [facility]eth on 01-20-2025 GFR/1.73 sq M.predicted among non-blacks MDRD (S/P/Bld) [Vol rate/Area] 78 mL/min/{1.73_m2} >60 [facility] Comment on above: mL/min/1.73m2 CKD-EP I Creatinine Equation (2020) Hematocrit Auto (Bld) [Volum e fraction]Ordered By: Gaston Beth on 01-20-2025 Hematocrit (Bld) [Volume fraction] 34.1 % Low 37-47 [facility] Hemoglobin measurementOrdere d By: Gaston Guzman on 01-20-2025 Hemoglobin (Bld) [Mass/Vol] 11.2 g/dL Low 12.0-15.0 [facility] Immature granulocytes/100 WB C Auto (Bld)Ordered By: [facility] Hospital[facility]et on 01-20-2025 Immature granulocytes/100 WBC (Bld) 0.500 % 0.0-0.9 [facility] Comment on above: IG% - Immature Granu locytes (promyelocytes, myelocytes and metamyelocytes) > 1% indicates that a LEFT SHIFT is Present. International normalized rat io (INR) calculationOrdered By: [facility] HospitalJenniferEfrain on 01-20-2025 INR Coag (Bld) [Relative time] 1.0 {INR} [facility] Ketones Test strip Ql (U)Ord ered By: [facility] HospitalJenniferEfrain on 01-20-2025 Ketones Ql (U) Negative Negative [facility] L501.4021on 01-20-2025 Trop T High Sen 56 ng/L Invalid Interpretation Code <=14 [facility] Comment on above: Result Comment: Crit ical Result(s) Called at: 01:42 01-20-25 TO DYLLAN GONZALEZ 2 by:HANNA GUEVARA??Results read back by same. Performed By: #### L 503.7505, L100.0100, L501.4021, L500.2500 #### [facility] Laboratory [address] [place], [address] MCV (mean corpuscular volume ) determinationOrdered By: Gastonsammi Guzman on 01-20-2025 MCV (RBC) [Entitic vol] 86.1 fL 81-99 [facility] Mean corpuscular hemoglobin (MCH) determinationOrdered By: Gaston Beth on 01-20-2025 MCH (RBC) [Entitic mass] 28.3 pg 27.0-32.0 [facility] Mean corpuscular hemoglobin concentration (MCHC) determinationOrdered By: Gaston Guzman on 01-20-2025 MCHC (RBC) [Mass/Vol] 32.8 g/dL 32-36 [facility] Mean platelet volume determi nationOrdered By: Gaston Guzman on 01-20-2025 Platelet mean volume (Bld) [Entitic vol] 11.2 fL 6.2-12.0 [facility] Microscopic analysis of urin e for red blood cells (RBC)Ordered By: Gaston Guzman on 01-20-2025 Microscopic analysis of urine for red blood cells (RBC) 0 SEEN /hpf 0-5 [facility] Monocyte percentageOrdered B y: Gaston Guzman on 01-20-2025 Monocytes/100 WBC (Bld) 6.0 % 0-10 [facility] Mucus LM Ql (Urine sed)Order ed By: Gaston Guzman on 01-20-2025 Mucus Ql (Urine sed) 0 SEEN /hpf [facility] Natriuretic peptide.B prohor ari N-Terminal [Mass/volume] in Serum or PlasmaOrdered By: Gaston Guzman on 01-20-2025 Natriuretic peptide.B prohormone N-Terminal [Mass/Vol] 765 pg/mL High <450 [facility] Comment on above: Heart Failure Unlike ly: < 300 pg/mLHeart Failure Likely< 50 Years: > 450 pg/mL50-75 Years: > 900 pg/mL>75 Years: > 1800 pg/mL Neutrophil percentageOrdered By: Gaston Guzman on 01-20-2025 Neutrophils/100 WBC (Bld) 67.6 % 47-70 [facility] Nitrite Test strip Ql (U)Ord ered By: Gaston Guzman on 01-20-2025 Nitrite Ql (U) Negative Negative [facility] Nucleated red blood cell per centageOrdered By: Gaston Guzman on 01-20-2025 Nucleated RBC/100 WBC (Bld) [Ratio] 0 % 0-5 [facility] Partial Thromboplast Timeon 01-20-2025 aPTT Coag (Bld) [Time] 25.3 s Normal 24.1-36.2 [facility] Comment on above: Performed By: #### L 300.3900, L300.4310 ####[facility] [address] [place], [address] Platelet countOrdered By: Rashel Guzman on 01-20-2025 Platelets (Bld) [#/Vol] 313 10*3/uL 150-450 [facility] Potassium measurement (mass/ volume)Ordered By: Gaston Guzman on 01-20-2025 Potassium (Unsp spec) [Mass/Vol] 3.5 mmol/L 3.3-5.1 [facility] Pro- Brain NATRIURETIC PEPTI Alberto 01-20-2025 Natriuretic peptide B (Bld) [Mass/Vol] 765 pg/mL High <=450 [facility] Comment on above: Result Comment: Hear t Failure Unlikely: < 300 pg/mL Heart Failure Likely < 50 Years: > 450 pg/mL 50-75 Years: > 900 pg/mL >75 Years: > 1800 pg/mL Performed By: #### L 503.7505, L100.0100, L501.4021, L500.2500 #### [facility] [address] [place], [address] Protein Test strip Ql (U)Ord ered By: Gaston Guzman on 01-20-2025 Protein Ql (U) Negative Negative [facility] Prothrombin Time w/INRon INR Coag (PPP) [Relative time] 1.0 {INR} Normal [facility] Comment on above: Performed By: #### L 300.3900, L300.4310 ####[facility] [address] [place], [address] PT Coag (PPP) [Time] 13.8 s Normal 11.7-14.9 [facility] Comment on above: Performed By: #### L 300.3900, L300.4310 ####[facility] [address] [place], [address] Prothrombin timeOrdered By: Gaston Guzman on 01-20-2025 PT Coag (PPP) [Time] 13.8 s 11.7-14.9 [facility] RBC Auto (Bld) [#/Vol]Ordere d By: Gaston Guzman on 01-20-2025 RBC (Bld) [#/Vol] 3.96 10*6/uL Low 4.2-5.4 [facility] Serum creatinine measurement (mass/volume)Ordered By: Gaston Guzman on 01-20-2025 Creatinine [Mass/Vol] 0.90 mg/dL 0.70-1.20 [facility] Serum glucose measurement (m ass/volume)Ordered By: Gaston Guzman on 01-20-2025 Glucose [Mass/Vol] 113 mg/dL High 70-99 [facility] Serum or plasma calcium linda urement (mass/volume)Ordered By: Gaston Zuniga on 01-20-2025 Calcium [Mass/Vol] 8.8 mg/dL 7.6-11.0 [facility] Serum or plasma urea nitroge n measurement (mass/volume)Ordered By: Gaston Guzman on 01-20-2025 Urea nitrogen [Mass/Vol] 18 mg/dL 4-19 [facility] Sodium levelOrdered By: David Guzman on 01-20-2025 Sodium [Moles/Vol] 139 mmol/L 133-145 [facility] Squamous epithelial cells de tection in urine sediment by light microscopyOrdered By: Gaston Guzman on 01-20-2025 Epithelial cells.squamous LM Ql (Urine sed) 0-5 SEEN /hpf 5-10 [facility] Troponin T HS 2 HRon 025 Trop T High Sen 55 ng/L Invalid Interpretation Code <=14 [facility] Comment on above: Result Comment: Crit ical Result(s) Called at: 03:19 01-20-25 to Deanna Sparr by: Hanna Guevara??Results read back by same. Performed By: #### L 499.0042 #### [facility] [address] [place], [address] Troponin T.cardiac [Mass/vol ume] in Serum or Plasma by High sensitivity methodOrdered By: Gaston Guzman on 01-20-2025 Troponin T.cardiac High sensitivity method [Mass/Vol] 55 ng/L High <14 [facility] Comment on above: Critical Result(s) C alled at: 03:19 01-20-25 to Deanna Sparr by: Hanna Guevara Results read back by same. Troponin T.cardiac High sensitivity method [Mass/Vol] 56 ng/L High <14 [facility] Comment on above: Critical Result(s) C alled at: 01:42 01-20-25 TO DYLLAN GONZALEZ 2 by:HANNA GUEVARA Results read back by same. Urinalysis, Completeon 01-20 EPI,SQUAMOUS 0-5 SEEN Normal 5-10 [facility] Comment on above: Order Comment: MARTA CTOR TO SPECIFY Performed By: #### L 400.0001 #### [facility] [address] [place], [address] BACTERIA 0 SEEN Normal None Seen [facility] Comment on above: Order Comment: MARTA CTOR TO SPECIFY Performed By: #### L 400.0001 #### [facility] [address] [place], [address] Mucus Ql (Urine sed) 0 SEEN Normal [facility] Comment on above: Order Comment: MARTA CTOR TO SPECIFY Performed By: #### L 400.0001 #### [facility] [address] [place], [address] RBC 0 SEEN Normal 0-5 [facility] Comment on above: Order Comment: MARTA CTOR TO SPECIFY Performed By: #### L 400.0001 #### [facility] [address] [place], [address] WBC 0 SEEN Normal 0-5 [facility] Comment on above: Order Comment: MARTA JUDDOR TO SPECIFY Performed By: #### L 400.0001 #### [facility] [address] [place], [address] Urine clarityOrdered By: Leon Guzman on 01-20-2025 Clarity (U) Clear Clear [facility] Urine color determinationOrd ered By: Gaston Guzman on 01-20-2025 Color (U) Straw Yellow [facility] Urine glucose detectionOrder ed By: Gaston Guzman on 01-20-2025 Glucose Ql (U) Normal mg/dl Normal [facility] Urine leukocyte esterase det ection by dipstickOrdered By: Gaston Guzman on 01-20-2025 Leukocyte esterase Test strip Ql (U) Negative Negative [facility] Urine pHOrdered By: Gaston Campos on 01-20-2025 pH (U) 6.0 [pH] 5.0 - 8.0 [facility] Urine sediment bacteria coun t by microscopy (number/high power field)Ordered By: Gaston Guzman on 01-20-2025 Bacteria LM.HPF (Urine sed) [#/Area] 0 /[HPF] None Seen [facility] Urine specific gravity measu rementOrdered By: Gaston Guzman on 01-20-2025 Specific gravity (U) [Rel density] 1.010 1.002-1.030 [facility] Urine urobilinogen measureme ntOrdered By: Gaston Guzman on 01-20-2025 Urobilinogen Ql (U) Normal mg/dl Normal [facility] White blood cell (WBC) count Ordered By: Gaston Guzman on 01-20-2025 WBC (Bld) [#/Vol] 10.3 10*3/uL 4.4-11.0 [facility] White blood cell countOrdere d By: Gaston Guzman on 01-20-2025 White blood cell count 0 SEEN /hpf 0-5 [facility] CNOVon 01-16-2025 CNOV Office Visit (INTMWS) MICHELL WOOTEN ([id number]) 1975 F Date Time Provider Department 01/16/25 [...] today's visit. Michell had been following with [facility] for cardiomyopathy. She had been diagnosed [...] 02/05/2022 Marcella ablation ICD GENERATOR CHANGE 07/19/2020 [facility] IMPLANTABLE CARDIOVERTER DEFIBRILLATOR 05/10/2009 defib/pacer- [facility], [...] Adult) Pu (more content not included)... Normal [facility] CBC panel Auto (Bld)on 01-14 Erythrocyte distribution width (RBC) [Ratio] 13.4 % 11.5 - 14.5 % [facility] Hematocrit (Bld) [Volume fraction] 30.1 % Low 36.0 - 46.0 % [facility] Hemoglobin (Bld) [Mass/Vol] 10.1 g/dL Low 12.0 - 16.0 g/dL [facility] Interpretation and review of laboratory results Abnormal [facility] MCH (RBC) [Entitic mass] 28.4 pg 26. 0 - 34.0 pg [facility] MCHC (RBC) [Mass/Vol] 33.6 g/dL 32.0 - 36.0 g/dL [facility] MCV (RBC) [Entitic vol] 85 fL 80 - 100 fL [facility] Nucleated RBC/100 WBC (Bld) [Ratio] 0.0 % [facility] Platelets (Bld) [#/Vol] 152 10*3/uL [facility] RBC (Bld) [#/Vol] 3.56 10*6/uL Low [facility] WBC (Bld) [#/Vol] 7.6 10*3/uL [facility] Erythrocyte distribution width (RBC) [Ratio] 13.4 % Normal 11.5-14.5 [facility] Comment on above: Performed By: #### 5 2969-3 #### SANDRO Jain ([id number]) [facility] ([facility]) [id number] [place] [address] Hematocrit (Bld) [Volume fraction] 30.1 % Low 36.0-46.0 [facility] Comment on above: Performed By: #### 5 2969-3 #### SANDRO Jain ([id number]) [facility] ([facility]) [id number] [place] [address] Hemoglobin (Bld) [Mass/Vol] 10.1 g/dL Low 12.0-16.0 [facility] Comment on above: Performed By: #### 5 2969-3 #### SANDRO Jain ([id number]) [facility] ([facility]) [id number] [place] [address] MCH (RBC) [Entitic mass] 28.4 pg Normal 26.0-34.0 [facility] Comment on above: Performed By: #### 5 2969-3 #### SANDRO Jain ([id number]) [facility] ([facility]) [id number] [place] [address] MCHC (RBC) [Mass/Vol] 33.6 g/dL Normal 32.0-36.0 [facility] Comment on above: Performed By: #### 5 2969-3 #### SANDRO Jain ([id number]) [facility] ([facility]) [id number] [place] [address] MCV (RBC) [Entitic vol] 85 fL Normal 80-100 U [facility] Comment on above: Performed By: #### 5 2969-3 #### SANDRO Jain ([id number]) [facility] ([facility]) [address] [place] [address] Nucleated RBC/100 WBC (Bld) [Ratio] 0.0 /100 WBCs Normal 0.0-0.0 [facility] Comment on above: Performed By: #### 5 2969-3 #### SANDRO Jain ([id number]) [facility] ([facility]) [address] [place] [address] Platelets (Bld) [#/Vol] 152 x10*3/uL Normal 150-450 [facility] Comment on above: Performed By: #### 5 2969-3 #### ASNDRO Jain ([id number]) [facility] ([facility]) [address] [place] [address] RBC (Bld) [#/Vol] 3.56 x10*6/uL Low 4.00-5.20 [facility] Comment on above: Performed By: #### 5 2969-3 #### SANDRO Jain ([id number]) [facility] ([facility]) [address] [place] [address] 29888 WBC (Bld) [#/Vol] 7.6 x10*3/uL Normal 4.4-11.3 [facility] Comment on above: Performed By: #### 5 2969-3 #### SANDRO Jain ([id number]) [facility] ([facility]) [address] [place] [address] 18723 Magnesiumon 01-14-2025 Magnesium [Mass/Vol] 2.12 mg/dL 1.60 - 2.40 mg/dL [facility] Magnesium [Mass/Vol] 2.12 mg/dL Normal 1.60-2.40 [facility] Comment on above: Performed By: #### 5 2969-3 #### SANDRO Jain ([id number]) [facility] ([facility]) [address] [place] [address] 33261 Magnesium [Mass/Vol]on 01-14 Interpretation and review of laboratory results Normal [facility] No Panel Informationon 01-14 [facility] Renal function 2000 panelon 01-14-2025 Albumin BCP dye [Mass/Vol] 3.3 g/dL Low 3.4 - 5.0 g/dL [facility] Anion gap [Moles/Vol] 12 mmol/L 10 - 2 0 mmol/L [facility] Calcium [Mass/Vol] 8.4 mg/dL Low 8.6 - 10. 6 mg/dL [facility] Chloride [Moles/Vol] 103 mmol/L 98 - 10 7 mmol/L [facility] CO2 [Moles/Vol] 26 mmol/L 21 - 32 mmol/L [facility] Creatinine [Mass/Vol] 0.74 mg/dL 0.50 - 1.05 mg/dL [facility] eGFR - PINF [facility] Glucose [Mass/Vol] 104 mg/dL High 74 - 99 mg/dL [facility] Interpretation and review of laboratory results Abnormal [facility] Phosphate [Mass/Vol] 3.8 mg/dL 2.5 - 4 .9 mg/dL [facility] Potassium [Moles/Vol] 4.1 mmol/L 3.5 - 5.3 mmol/L [facility] Sodium [Moles/Vol] 137 mmol/L 136 - 145 mmol/L [facility] Urea nitrogen [Mass/Vol] 12 mg/dL 6 - 23 mg/d L [facility] Albumin BCP dye [Mass/Vol] 3.3 g/dL Low 3.4-5.0 [facility] Comment on above: Performed By: #### 5 2969-3 #### SANDRO Jain ([id number]) [facility] ([facility]) [address] [place] [address] 49353 Anion gap [Moles/Vol] 12 mmol/L Normal 10-20 [facility] Comment on above: Performed By: #### 5 2969-3 #### SANDRO Jain ([id number]) [facility] ([facility]) [address] [place] [address] 32678 Calcium [Mass/Vol] 8.4 mg/dL Low 8.6-10.6 [facility] Comment on above: Performed By: #### 5 2969-3 #### SANDRO Jain ([id number]) [facility] ([facility]) [address] [place] [address] 19301 Chloride [Moles/Vol] 103 mmol/L Normal 98-107 [facility] Comment on above: Performed By: #### 5 2969-3 #### SANDRO FELIX L ([id number]) [facility] ([facility]) [address] [place] [address] CO2 [Moles/Vol] 26 mmol/L Normal 21-32 [facility] Comment on above: Performed By: #### 5 2969-3 #### SANDRO LARAER L ([id number]) [facility] ([facility]) [address] [place] [address] Creatinine [Mass/Vol] 0.74 mg/dL Normal 0.50-1.05 [facility] Comment on above: Performed By: #### 5 2969-3 #### SANDRO FELIX L ([id number]) [facility] ([facility]) [address] [place] [address] 09510 Glomerular filtration rate >90 Normal >60 [facility] Comment on above: Result Comment: Calc ulations of estimated GFR are performed using the 2020 CKD-EPI Study Refit equation without the race variable for the IDMS-Traceable creatinine methods. https://jasn.asnjournals.org/content/early//ASN.523 9171581 Performed By: #### 5 2969-3 #### SANDRO FELIX L ([id number]) [facility] ([facility]) [address] [place] [address] Glucose [Mass/Vol] 104 mg/dL High 74-99 [facility] Comment on above: Performed By: #### 5 2969-3 #### SANDRO FELIX L ([id number]) [facility] ([facility]) [address] [place] [address] Phosphate [Mass/Vol] 3.8 mg/dL Normal 2.5-4.9 [facility] Comment on above: Performed By: #### 5 2969-3 #### SANDRO KISERMOODILIA L ([id number]) [facility] ([facility]) [address] [place] [address] Potassium [Moles/Vol] 4.1 mmol/L Normal 3.5-5.3 [facility] Comment on above: Performed By: #### 5 2969-3 #### SANDRO LARAER L ([id number]) [facility] ([facility]) [address] [place] [address] Sodium [Moles/Vol] 137 mmol/L Normal 136-145 [facility] Comment on above: Performed By: #### 5 2969-3 #### SANDRO SCHMOTZER L ([id number]) [facility] ([facility]) [address] [place] [address] Urea nitrogen [Mass/Vol] 12 mg/dL Normal 6-23 [facility] Comment on above: Performed By: #### 5 2969-3 #### SANDRO KISERMOKARIMEER L ([id number]) [facility] ([facility]) [address] [place] [address]24 XR CHEST 2 VIEWSon XR CHEST 2 VIEWS Interpreted By: Augustine Mendoza and Kamau Nyokabi STUDY: XR CHEST 2 VIEWS; 01/14/2025 8:48 am INDICATION: Signs/Symptoms:s/p cardiac surgery. COMPARISON: Chest x-ray 01/12/2025 ACCESSION NUMBER(S): [id number] ORDERING CLINICIAN: KRISTI LOCKE FINDINGS: PA and lateral radiographs of the chest were provided. MEDICAL DEVICES: Unchanged leads for left-sided AICD. Status post median sternotomy. CARDIOMEDIASTINAL SILHOUETTE: Cardiomediastinal silhouette is normal in size and configuration. LUNGS: Lungs are well expanded. No overt pulmonary edema. Similar-appearing rbhk-myjxwap-vjbp-ri ght small pleural effusions with mild bibasilar atelectasis. No pneumothorax. ABDOMEN: No remarkable upper abdominal findings. BONES: No acute osseous changes. IMPRESSION: 1. Stable small fveg-diyxtnh-jjdb-ri ght pleural effusions with mild bibasilar atelectasis. No significant change since prior radiograph. I personally reviewed the images/study and I agree with vice president of engineering Dr. Vita Matos findings as stated. This study was interpreted at [place], [place] MACRO: None Signed by: Augustine Mendoza 01/14/2025 2:34 PM Dictation workstation: [id number] Normal [facility] XR Chest 2 Viewson UH MMODAL UH MMODAL [facility] Work Phone: Radiology Study observation (narrative) [facility] Work Phone: XR Chest 2 ViewsOrdered By: Ofelia Mendoza on 01-14-2025 [facility] Work Phone: CBC panel Auto (Bld)on 01-13 Erythrocyte distribution width (RBC) [Ratio] 13.4 % 11.5 - 14.5 % [facility] Hematocrit (Bld) [Volume fraction] 28.2 % Low 36.0 - 46.0 % [facility] Hemoglobin (Bld) [Mass/Vol] 9.5 g/dL Low 12.0 - 16.0 g/dL [facility] Interpretation and review of laboratory results Abnormal [facility] MCH (RBC) [Entitic mass] 28.6 pg 26. 0 - 34.0 pg [facility] MCHC (RBC) [Mass/Vol] 33.7 g/dL 32.0 - 36.0 g/dL [facility] MCV (RBC) [Entitic vol] 85 fL 80 - 100 fL [facility] Nucleated RBC/100 WBC (Bld) [Ratio] 0.0 % [facility] Platelets (Bld) [#/Vol] 121 10*3/uL Low [facility] RBC (Bld) [#/Vol] 3.32 10*6/uL Low [facility] WBC (Bld) [#/Vol] 8.3 10*3/uL [facility] Erythrocyte distribution width (RBC) [Ratio] 13.4 % Normal 11.5-14.5 [facility] Comment on above: Performed By: #### 5 2969-3 #### SANDRO Jain ([id number]) [facility] ([facility]) [address] [place] [address] Hematocrit (Bld) [Volume fraction] 28.2 % Low 36.0-46.0 [facility] Comment on above: Performed By: #### 5 2969-3 #### SANDRO Jain ([id number]) [facility] ([facility]) [address] [place] [address] 46956 Hemoglobin (Bld) [Mass/Vol] 9.5 g/dL Low 12.0-16.0 [facility] Comment on above: Performed By: #### 5 2969-3 #### SANDRO Jain ([id number]) [facility] ([facility]) [address] [place] [address] 64336 MCH (RBC) [Entitic mass] 28.6 pg Normal 26.0-34.0 [facility] Comment on above: Performed By: #### 5 2969-3 #### SANDRO Jain ([id number]) [facility] ([facility]) [address] [place] [address] 69255 MCHC (RBC) [Mass/Vol] 33.7 g/dL Normal 32.0-36.0 [facility] Comment on above: Performed By: #### 5 2969-3 #### SANDRO Jain ([id number]) [facility] ([facility]) [address] [place] [address] 72415 MCV (RBC) [Entitic vol] 85 fL Normal 80-100 U [facility] Comment on above: Performed By: #### 5 2969-3 #### SANDRO Jain ([id number]) [facility] ([facility]) [address] [place] [address] 06223 Nucleated RBC/100 WBC (Bld) [Ratio] 0.0 /100 WBCs Normal 0.0-0.0 [facility] Comment on above: Performed By: #### 5 2969-3 #### SANDRO Jain ([id number]) [facility] ([facility]) [address] [place] [address] 80686 Platelets (Bld) [#/Vol] 121 x10*3/uL Low 150-450 [facility] Comment on above: Performed By: #### 5 2969-3 #### SANDRO Jain ([id number]) [facility] ([facility]) [address] [place] [address] 38675 RBC (Bld) [#/Vol] 3.32 x10*6/uL Low 4.00-5.20 [facility] Comment on above: Performed By: #### 5 2969-3 #### SANDRO Jain ([id number]) [facility] ([facility]) [address] [place] [address] 07406 WBC (Bld) [#/Vol] 8.3 x10*3/uL Normal 4.4-11.3 [facility] Comment on above: Performed By: #### 5 2969-3 #### SANDRO Jain (78656) [facility] ([facility]) [address] [place] [address] 68934 Magnesiumon 01-13-2025 Magnesium [Mass/Vol] 2.08 mg/dL 1.60 - 2.40 mg/dL [facility] Magnesium [Mass/Vol] 2.08 mg/dL Normal 1.60-2.40 [facility] Comment on above: Performed By: #### 5 2969-3 #### SANDRO Jain ([id number]) [facility] ([facility]) [address] [place] [address] 15758 Magnesium [Mass/Vol]on 01-13 Interpretation and review of laboratory results Normal [facility] No Panel Informationon 01-13 Dispense Status RE [facility] PRODUCT BLOOD TYPE 6200 [facility] PRODUCT CODE [id number] [facility] Unit ABO A [facility] RH Positive [facility] UNIT VOLUME 350 [facility] XM INTEP COMP [facility] Prepare RBC: 4 Unitson 01-13 Blood Expiration Date 01/16/2025 11:59:00 PM EDT [facility] Blood Expiration Date 01/22/2025 11:59:00 PM EDT [facility] Blood Expiration Date 01/23/2025 11:59:00 PM EDT [facility] Blood Expiration Date 01/30/2025 11:59:00 PM EDT [facility] Dispense [facility] Unit Number [id number] [facility] Unit Number [id number] [facility] Unit Number [id number] [facility] Unit Number [id number] [facility] Renal function 2000 panelon 01-13-2025 Albumin BCP dye [Mass/Vol] 3.3 g/dL Low 3.4 - 5.0 g/dL [facility] Anion gap [Moles/Vol] 10 mmol/L 10 - 2 0 mmol/L [facility] Calcium [Mass/Vol] 8.3 mg/dL Low 8.6 - 10. 6 mg/dL [facility] Chloride [Moles/Vol] 101 mmol/L 98 - 10 7 mmol/L [facility] CO2 [Moles/Vol] 30 mmol/L 21 - 32 mmol/L [facility] Creatinine [Mass/Vol] 0.62 mg/dL 0.50 - 1.05 mg/dL [facility] eGFR - PINF [facility] Glucose [Mass/Vol] 104 mg/dL High 74 - 99 mg/dL [facility] Interpretation and review of laboratory results Abnormal [facility] Phosphate [Mass/Vol] 3.2 mg/dL 2.5 - 4 .9 mg/dL [facility] Potassium [Moles/Vol] 3.6 mmol/L 3.5 - 5.3 mmol/L [facility] Sodium [Moles/Vol] 137 mmol/L 136 - 145 mmol/L [facility] Urea nitrogen [Mass/Vol] 12 mg/dL 6 - 23 mg/d L [facility] Albumin BCP dye [Mass/Vol] 3.3 g/dL Low 3.4-5.0 [facility] Comment on above: Performed By: #### 5 2969-3 #### SANDRO Jain ([id number]) [facility] ([facility]) [address] [place] [address] Anion gap [Moles/Vol] 10 mmol/L Normal 10-20 [facility] Comment on above: Performed By: #### 5 2969-3 #### SANDRO Jain ([id number]) [facility] ([facility]) [address] [place] [address] Calcium [Mass/Vol] 8.3 mg/dL Low 8.6-10.6 [facility] Comment on above: Performed By: #### 5 2969-3 #### SANDRO FELIX L ([id number]) [facility] ([facility]) [address] [place] [address] Chloride [Moles/Vol] 101 mmol/L Normal 98-107 [facility] Comment on above: Performed By: #### 5 2969-3 #### SNADRO FELIX L ([id number]) [facility] ([facility]) [address] [place] [address] CO2 [Moles/Vol] 30 mmol/L Normal 21-32 [facility] Comment on above: Performed By: #### 5 2969-3 #### SANDRO Jain ([id number]) [facility] ([facility]) [address] [place] [address] 72747 Creatinine [Mass/Vol] 0.62 mg/dL Normal 0.50-1.05 [facility] Comment on above: Performed By: #### 5 2969-3 #### SANDRO FELIX L ([id number]) [facility] ([facility]) [address] [place] [address] 62430 Glomerular filtration rate >90 Normal >60 [facility] Comment on above: Result Comment: Calc ulations of estimated GFR are performed using the 2020 CKD-EPI Study Refit equation without the race variable for the IDMS-Traceable creatinine methods. https://jasn.asnjournals.org/content//ASN.823 0293414 Performed By: #### 5 2969-3 #### SANDRO Jain ([id number]) [facility] ([facility]) [address] [place] [address] 93366 Glucose [Mass/Vol] 104 mg/dL High 74-99 [facility] Comment on above: Performed By: #### 5 2969-3 #### SANDRO Jain ([id number]) [facility] ([facility]) [address] [place] [address] 41754 Phosphate [Mass/Vol] 3.2 mg/dL Normal 2.5-4.9 [facility] Comment on above: Performed By: #### 5 2969-3 #### SANDRO Jain ([id number]) [facility] ([facility]) [address] [place] [address] 50467 Potassium [Moles/Vol] 3.6 mmol/L Normal 3.5-5.3 [facility] Comment on above: Performed By: #### 5 2969-3 #### SANDRO Jain ([id number]) [facility] ([facility]) [address] [place] [address] 65370 Sodium [Moles/Vol] 137 mmol/L Normal 136-145 [facility] Comment on above: Performed By: #### 5 2969-3 #### SANDRO FELIX L (12741) [facility] ([facility]) [address] [place] [address] 05454 Urea nitrogen [Mass/Vol] 12 mg/dL Normal 6-23 [facility] Comment on above: Performed By: #### 5 2969-3 #### SANDRO FELIX L (77663) [facility] ([facility]) [address] [place] [address] 49657 TRANSTHORACIC ECHO (TTE) ADELAIDA Bhatti 01-13-2025 TRANSTHORACIC ECHO (TTE) [facility], [address] [place] [address] and TRANSTHORACIC ECHOCARDIOGRAM REPORT Patient Name: MICHELL Cole Physician: [id number] Velez MD Study Date: 01/13/2025 Ordering Provider: [id number] KRISTI LOCKE MRN/PID: [id number] Fellow: Nurse: Malini Irwin RN Date of /Age: 5 1975 Electrical Wiring Lineman: Kimi peterson RDCS Gender assigned at F Additional Staff: : Height: 175.26 cm Admit Date: 01/28/2025 Weight: 102.97 kg Admission Status: Inpatient - Routine BSA / BMI: 2.18 m2 / 33.52 kg/m2 Blood Pressure: 101/70 mmHg Department Location: [facility] Non Invasive Study Type: TRANSTHORACIC ECHO (TTE) LIMITED Diagnosis/ICD: Other specified postprocedural states-Z98.890 Indication: S/p MVR CPT Code: Echo Limited-38734; Doppler Full-19470; Color Doppler-73320 Patient History: Pertinent History: MITRAL VALVE REPAIR [...] Normal Ranges: Peak TR Velocity: 1.72 m/s [id number] Jeremy Velez MD Electronically signed on 01/13/2025 at 12:02:22 PM Final CONCLUSIONS: 1. Left ventricular ejection fraction is mildly decreased by visual estimate at 40-45%. 2. Poorly visualized anatomical structures due to s (more content not included)... Normal [facility] US Heart TransthoracicOrdere d By: Jeremy Velez on 01-13-2025 AV pk grad 8 mmHg [facility] Work Phone: AV pk rosa 1.40 m/s [facility] Work Phone: LV A4C EF 58.1 [facility] Work Phone: LV EF 43 % [facility] Work Phone: LVIDd 4.60 cm [facility] Work Phone: MV E/A ratio 1.12 [facility] Work Phone: RVSP 15 mmHg [facility] Work Phone: [facility] Work Phone: US Heart Transthoracicon SYNGO SYNGO [facility] Work Phone: CBC panel Auto (Bld)on 01-12 Erythrocyte distribution width (RBC) [Ratio] 13.7 % 11.5 - 14.5 % [facility] Hematocrit (Bld) [Volume fraction] 29.8 % Low 36.0 - 46.0 % [facility] Hemoglobin (Bld) [Mass/Vol] 9.4 g/dL Low 12.0 - 16.0 g/dL [facility] Interpretation and review of laboratory results Abnormal [facility] MCH (RBC) [Entitic mass] 28.0 pg 26. 0 - 34.0 pg [facility] MCHC (RBC) [Mass/Vol] 31.5 g/dL Low 32.0 - 36.0 g/dL [facility] MCV (RBC) [Entitic vol] 89 fL 80 - 100 fL [facility] Nucleated RBC/100 WBC (Bld) [Ratio] 0.0 % [facility] Platelets (Bld) [#/Vol] 84 10*3/uL [facility] (Bld) [#/Vol] 3.36 10*6/uL Low [facility] WBC (Bld) [#/Vol] 11.0 10*3/uL [facility] Erythrocyte distribution width (RBC) [Ratio] 13.7 % Normal 11.5-14.5 [facility] Comment on above: Performed By: #### 3 4532-2 #### SANDRO Jain ([id number]) [facility] ([facility]) [address] [place] [address] Hematocrit (Bld) [Volume fraction] 29.8 % Low 36.0-46.0 [facility] Comment on above: Performed By: #### 3 4532-2 #### SANDRO Jain (05054) [facility] ([facility]) [address] [place] [address] Hemoglobin (Bld) [Mass/Vol] 9.4 g/dL Low 12.0-16.0 [facility] Comment on above: Performed By: #### 3 4532-2 #### SANDRO Jain (23551) [facility] ([facility]) [address] [place] [address] MCH (RBC) [Entitic mass] 28.0 pg Normal 26.0-34.0 [facility] Comment on above: Performed By: #### 3 4532-2 #### SANDRO Jain ([id number]) [facility] ([facility]) [address] [place] [address] MCHC (RBC) [Mass/Vol] 31.5 g/dL Low 32.0-36.0 [facility] Comment on above: Performed By: #### 3 453-2 #### SANDRO Jain ([id number]) [facility] ([facility]) [address] [place] [address] MCV (RBC) [Entitic vol] 89 fL Normal 80-100 U [facility] Comment on above: Performed By: #### 3 453-2 #### SANDRO Jain (79210) [facility] ([facility]) [address] [place] [address] Nucleated RBC/100 WBC (Bld) [Ratio] 0.0 /100 WBCs Normal 0.0-0.0 [facility] Comment on above: Performed By: #### 3 453-2 #### SANDRO Jain ([id number]) [facility] ([facility]) [address] [place] [address] Platelets (Bld) [#/Vol] 84 x10*3/uL Low 150-450 [facility] Comment on above: Performed By: #### 3 4532-2 #### SANDRO Jain ([id number]) [facility] ([facility]) [address] [facility] [address] RBC (Bld) [#/Vol] 3.36 x10*6/uL Low 4.00-5.20 [facility] Comment on above: Performed By: #### 3 4532-2 #### SANDRO Jain ([id number]) [facility] ([facility]) [address] [facility] [place] [address] WBC (Bld) [#/Vol] 11.0 x10*3/uL Normal 4.4-11.3 [facility] Comment on above: Performed By: #### 3 4532-2 #### SANDRO Jain (47718) [facility] ([facility]) [address] [place] [address] Glucose Test strip manual (B ld) [Mass/Vol]on 01-12-2025 Glucose [Mass/Vol] 114 mg/dL High 74 - 99 mg/dL [facility] Interpretation and review of laboratory results Abnormal [facility] Glucose [Mass/Vol] 114 mg/dL High 74-99 [facility] Comment on above: Performed By: #### 5 2969-3 #### SANDRO Jain ([id number]) [facility] ([facility]) [address] [place] [address] 26428 Glucose [Mass/Vol] 125 mg/dL High 74 - 99 mg/dL [facility] Interpretation and review of laboratory results Abnormal [facility] Glucose [Mass/Vol] 125 mg/dL High 74-99 [facility] Comment on above: Performed By: #### 3 4532-2 #### SANDRO Jain (98297) [facility] ([facility]) [address] [place] [address] 87204 Glucose [Mass/Vol] 138 mg/dL High 74 - 99 mg/dL [facility] Interpretation and review of laboratory results Abnormal [facility] Glucose [Mass/Vol] 138 mg/dL High 74-99 [facility] Comment on above: Performed By: #### 3 4532-2 #### SANDRO Jain ([id number]) [facility] ([facility]) [address] [place] [address] 87943 Glucose [Mass/Vol] 102 mg/dL High 74 - 99 mg/dL [facility] Interpretation and review of laboratory results Abnormal [facility] Glucose [Mass/Vol] 102 mg/dL High 74-99 [facility] Comment on above: Performed By: #### 3 4532-2 #### SANDRO Jain ([id number]) [facility] ([facility]) [address] [place] [address] Glucose [Mass/Vol] 106 mg/dL High 74 - 99 mg/dL [facility] Interpretation and review of laboratory results Abnormal [facility] Glucose [Mass/Vol] 106 mg/dL High 74-99 [facility] Comment on above: Performed By: #### 3 4532-2 #### SANDRO Jain ([id number]) [facility] ([facility]) [address] [place] [address] Magnesiumon 01-12-2025 Magnesium [Mass/Vol] 2.05 mg/dL 1.60 - 2.40 mg/dL [facility] Magnesium [Mass/Vol] 2.05 mg/dL Normal 1.60-2.40 [facility] Comment on above: Performed By: #### 3 4532-2 #### SANDRO Jain (92954) [facility] ([facility]) [address] [place] [address] Magnesium [Mass/Vol]on 01-12 Interpretation and review of laboratory results Normal [facility] No Panel Informationon 01-12 [facility] Renal function 2000 panelon 01-12-2025 Albumin BCP dye [Mass/Vol] 3.3 g/dL Low 3.4 - 5.0 g/dL [facility] Anion gap [Moles/Vol] 10 mmol/L 10 - 2 0 mmol/L [facility] Calcium [Mass/Vol] 8.4 mg/dL Low 8.6 - 10. 6 mg/dL [facility] Chloride [Moles/Vol] 101 mmol/L 98 - 10 7 mmol/L [facility] CO2 [Moles/Vol] 30 mmol/L 21 - 32 mmol/L [facility] Creatinine [Mass/Vol] 0.60 mg/dL 0.50 - 1.05 mg/dL [facility] eGFR - PINF [facility] Glucose [Mass/Vol] 101 mg/dL High 74 - 99 mg/dL [facility] Interpretation and review of laboratory results Abnormal [facility] Phosphate [Mass/Vol] 2.3 mg/dL Low 2.5 - 4 .9 mg/dL [facility] Potassium [Moles/Vol] 3.9 mmol/L 3.5 - 5.3 mmol/L [facility] Sodium [Moles/Vol] 137 mmol/L 136 - 145 mmol/L [facility] Urea nitrogen [Mass/Vol] 13 mg/dL 6 - 23 mg/d L [facility] Albumin BCP dye [Mass/Vol] 3.3 g/dL Low 3.4-5.0 [facility] Comment on above: Performed By: #### 3 4532-2 #### SANDRO Jain ([id number]) [facility] ([facility]) [address] [place] [address] Anion gap [Moles/Vol] 10 mmol/L Normal 10-20 [facility] Comment on above: Performed By: #### 3 4532-2 #### SANDRO Jain ([id number]) [facility] ([facility]) [address] [place] [address] Calcium [Mass/Vol] 8.4 mg/dL Low 8.6-10.6 [facility] Comment on above: Performed By: #### 3 4532-2 #### SANDRO Jain ([id number]) [facility] ([facility]) [address] [place] [address] Chloride [Moles/Vol] 101 mmol/L Normal 98-107 [facility] Comment on above: Performed By: #### 3 4532-2 #### SANDRO Jain ([id number]) [facility] ([facility]) [address] [place] [address] CO2 [Moles/Vol] 30 mmol/L Normal 21-32 [facility] Comment on above: Performed By: #### 3 4532-2 #### SANDRO Jain ([id number]) [facility] ([facility]) [address] [place] [address] Creatinine [Mass/Vol] 0.60 mg/dL Normal 0.50-1.05 [facility] Comment on above: Performed By: #### 3 4532-2 #### SANDRO Jain ([id number]) [facility] ([facility]) [address] [place] [address] Glomerular filtration rate >90 Normal >60 [facility] Comment on above: Result Comment: Calc ulations of estimated GFR are performed using the 2020 CKD-EPI Study Refit equation without the race variable for the IDMS-Traceable creatinine methods. https://jasn.asnjournals.org/content/ASN.614 3725384 Performed By: #### 3 4532-2 #### SANDRO Jain ([id number]) [facility] ([facility]) [address] [place] [address] Glucose [Mass/Vol] 101 mg/dL High 74-99 [facility] Comment on above: Performed By: #### 3 4532-2 #### SANDRO Jain ([id number]) [facility] ([facility]) [address] [place] [address] Phosphate [Mass/Vol] 2.3 mg/dL Low 2.5-4.9 [facility] Comment on above: Performed By: #### 3 4532-2 #### SANDRO Jain ([id number]) [facility] ([facility]) [address] [place] [address] Potassium [Moles/Vol] 3.9 mmol/L Normal 3.5-5.3 [facility] Comment on above: Performed By: #### 3 4532-2 #### SANDRO Jain ([id number]) [facility] ([facility]) [address] [place] [address] Sodium [Moles/Vol] 137 mmol/L Normal 136-145 [facility] Comment on above: Performed By: #### 3 4532-2 #### SANDRO LARAJASSI Jain ([id number]) [facility] ([facility]) [address] [place] [address] Urea nitrogen [Mass/Vol] 13 mg/dL Normal 6-23 [facility] Comment on above: Performed By: #### 3 4532-2 #### SANDRO FELIX Mulugeta ([id number]) [facility] ([facility]) [address] [place] [address] XR CHEST 2 VIEWSon 5 XR CHEST 2 VIEWS Interpreted By: Jose M Mann, STUDY: XR CHEST 2 VIEWS; 01/12/2025 8:56 am INDICATION: Signs/Symptoms:s/p cardiac surgery. COMPARISON: Radiographs dated 01/11/2025 ACCESSION NUMBER(S): [id number] ORDERING CLINICIAN: KRISTI LOCKE FINDINGS: PA and [...] M Mann 01/12/2025 2:01 PM Dictation workstation: [id number] Normal [facility] XR Chest 2 Viewson 5 UH MMODAL UH MMODAL [facility] Work Phone: Radiology Study observation (narrative) [facility] Work Phone: XR Chest 2 ViewsOrdered By: Jose M Mann on 01-12-2025 [facility] Work Phone: CBC panel Auto (Bld)on 01-11 Erythrocyte distribution width (RBC) [Ratio] 13.2 % 11.5 - 14.5 % [facility] Hematocrit (Bld) [Volume fraction] 29.8 % Low 36.0 - 46.0 % [facility] Hemoglobin (Bld) [Mass/Vol] 10.0 g/dL Low 12.0 - 16.0 g/dL [facility] Interpretation and review of laboratory results Abnormal [facility] MCH (RBC) [Entitic mass] 28.1 pg 26. 0 - 34.0 pg [facility] MCHC (RBC) [Mass/Vol] 33.6 g/dL 32.0 - 36.0 g/dL [facility] MCV (RBC) [Entitic vol] 84 fL 80 - 100 fL [facility] Nucleated RBC/100 WBC (Bld) [Ratio] 0.0 % [facility] Platelets (Bld) [#/Vol] 90 10*3/uL [facility] RBC (Bld[facility] [#/Vol] 3.56 10*6/uL Low [facility] WBC (Bld) [#/Vol] 15.9 10*3/uL High [facility] Erythrocyte distribution width (RBC) [Ratio] 13.2 % Normal 11.5-14.5 [facility] Comment on above: Performed By: #### 5 8410-2 ####SANDRO Jain ([id number])[facility] ([facility])[id number] [place] [address] Hematocrit (Bld) [Volume fraction] 29.8 % Low 36.0-46.0 [facility] Comment on above: Performed By: #### 5 8410-2 ####SANDRO Jain ([id number])[facility] ([facility])[address] [place] [address] Hemoglobin (Bld) [Mass/Vol] 10.0 g/dL Low 12.0-16.0 [facility] Comment on above: Performed By: #### 5 8410-2 ####SANDRO Jain ([id number])[facility] ([facility])[address] [place] [address] MCH (RBC) [Entitic mass] 28.1 pg Normal 26.0-34.0 [facility] Comment on above: Performed By: #### 5 8410-2 ####SANDRO Jain ([id number])[facility] ([facility])[address] [place] [address] MCHC (RBC) [Mass/Vol] 33.6 g/dL Normal 32.0-36.0 [facility] Comment on above: Performed By: #### 5 8410-2 ####SANDRO Jain ([id number])[facility] ([facility])[address] [place] [address] MCV (RBC) [Entitic vol] 84 fL Normal 80-100 U [facility] Comment on above: Performed By: #### 5 8410-2 ####SANDRO Jain ([id number])[facility] ([facility])[address] [place] [address] Nucleated RBC/100 WBC (Bld) [Ratio] 0.0 /100 WBCs Normal 0.0-0.0 [facility] Comment on above: Performed By: #### 5 8410-2 ####SANDRO Jain ([id number])[facility] ([facility])[address] [place] [address] Platelets (Bld) [#/Vol] 90 x10*3/uL Low 150-450 [facility] Comment on above: Performed By: #### 5 8410-2 ####SANDRO Jain ([id number])[facility] ([facility])[address] [place] [address] RBC (Bld) [#/Vol] 3.56 x10*6/uL Low 4.00-5.20 [facility] Comment on above: Performed By: #### 5 8410-2 ####SANDRO Jain ([id number])[facility] ([facility])[address] [place] [address] WBC (Bld) [#/Vol] 15.9 x10*3/uL High 4.4-11.3 [facility] Comment on above: Performed By: #### 5 8410-2 ####SANDRO Jain ([id number])[facility] ([facility])[address] [place] [address] Glucose Test strip manual (B ld) [Mass/Vol]on 01-11-2025 Glucose [Mass/Vol] 109 mg/dL High 74 - 99 mg/dL [facility] Interpretation and review of laboratory results Abnormal [facility] Glucose [Mass/Vol] 109 mg/dL High 74-99 [facility] Comment on above: Performed By: #### 3 4532-2 #### SANDRO Jain ([id number]) [facility] ([facility]) [address] [place] [address] Glucose [Mass/Vol] 154 mg/dL High 74 - 99 mg/dL [facility] Interpretation and review of laboratory results Abnormal [facility] Glucose [Mass/Vol] 154 mg/dL High 74-99 [facility] Comment on above: Performed By: #### 3 4532-2 #### SANDRO Jain ([id number]) [facility] ([facility]) [address] [place] [address] Glucose [Mass/Vol] 157 mg/dL High 74 - 99 mg/dL [facility] Interpretation and review of laboratory results Abnormal [facility] Glucose [Mass/Vol] 157 mg/dL High 74-99 [facility] Comment on above: Performed By: #### 2 341-6 ####SANDRO Jain ([id number])[facility] ([facility])[address] [place] [address] Magnesiumon 01-11-2025 Magnesium [Mass/Vol] 1.94 mg/dL 1.60 - 2.40 mg/dL [facility] Magnesium [Mass/Vol] 1.94 mg/dL Normal 1.60-2.40 [facility] Comment on above: Performed By: #### 1 9123-9 ####SANDRO Jain ([id number])[facility] ([facility])[address] [place] [address] Magnesium [Mass/Vol]on 01-11 Interpretation and review of laboratory results Normal [facility] No Panel Informationon 01-11 [facility] Renal function 2000 panelon 01-11-2025 Albumin BCP dye [Mass/Vol] 3.5 g/dL 3.4 - 5.0 g/dL [facility] Anion gap [Moles/Vol] 10 mmol/L 10 - 2 0 mmol/L [facility] Calcium [Mass/Vol] 8.7 mg/dL 8.6 - 10. 6 mg/dL [facility] Chloride [Moles/Vol] 101 mmol/L 98 - 10 7 mmol/L [facility] CO2 [Moles/Vol] 28 mmol/L 21 - 32 mmol/L [facility] Creatinine [Mass/Vol] 0.68 mg/dL 0.50 - 1.05 mg/dL [facility] eGFR - PINF [facility] Glucose [Mass/Vol] 152 mg/dL High 74 - 99 mg/dL [facility] Interpretation and review of laboratory results Abnormal [facility] Phosphate [Mass/Vol] 2.2 mg/dL Low 2.5 - 4 .9 mg/dL [facility] Potassium [Moles/Vol] 3.9 mmol/L 3.5 - 5.3 mmol/L [facility] Sodium [Moles/Vol] 135 mmol/L Low 136 - 145 mmol/L [facility] Urea nitrogen [Mass/Vol] 10 mg/dL 6 - 23 mg/d L [facility] Albumin BCP dye [Mass/Vol] 3.5 g/dL Normal 3.4-5.0 [facility] Comment on above: Performed By: #### 2 4362-6 ####SANDRO Jain ([id number])[facility] ([facility])[address] [place] [address] Anion gap [Moles/Vol] 10 mmol/L Normal 10-20 [facility] Comment on above: Performed By: #### 2 4362-6 ####SANDRO Jain ([id number])[facility] ([facility])[address] [place] [address] Calcium [Mass/Vol] 8.7 mg/dL Normal 8.6-10.6 [facility] Comment on above: Performed By: #### 2 4362-6 ####SANDRO FELIX L (60269)[facility] ([facility])[address] [place] [address] Chloride [Moles/Vol] 101 mmol/L Normal 98-107 [facility] Comment on above: Performed By: #### 2 4362-6 ####SANDRO FELIX L ([id number])[facility] ([facility])[address] [place] [address] CO2 [Moles/Vol] 28 mmol/L Normal 21-32 [facility] Comment on above: Performed By: #### 2 4362-6 ####SANDRO FELIX L ([id number])[facility] ([facility])[address] [place] [address] Creatinine [Mass/Vol] 0.68 mg/dL Normal 0.50-1.05 [facility] Comment on above: Performed By: #### 2 4362-6 ####SANDRO FELIX L ([id number])[facility] ([facility])[address] [place] [address] Glomerular filtration rate >90 Normal >60 [facility] Comment on above: Result Comment: Calc ulations of estimated GFR are performed using the 2020 CKD-EPI Study Refit equation without the race variable for the IDMS-Traceable creatinine methods. https://jasn.asnjournals.org/content//ASN.427 6440112 Performed By: #### 2 4362-6 ####SANDRO FELIX L ([id number])[facility] ([facility])[address] [place] [address] Glucose [Mass/Vol] 152 mg/dL High 74-99 [facility] Comment on above: Performed By: #### 2 4362-6 ####SANDRO LARAER L (90991)[facility] ([facility])[address] [place] [address] Phosphate [Mass/Vol] 2.2 mg/dL Low 2.5-4.9 [facility] Comment on above: Performed By: #### 2 4362-6 ####SANDRO KISERMOTZER L (53616)[facility] ([facility])[address] [place] [address] Potassium [Moles/Vol] 3.9 mmol/L Normal 3.5-5.3 [facility] Comment on above: Performed By: #### 2 4362-6 ####SANDRO KISERMOTZER L (18460)[facility] ([facility])[address] [place] [address] Sodium [Moles/Vol] 135 mmol/L Low 136-145 [facility] Comment on above: Performed By: #### 2 4362-6 ####SANDRO LARAER L ([id number])[facility] ([facility])[address] [place] [address] Urea nitrogen [Mass/Vol] 10 mg/dL Normal 6-23 [facility] Comment on above: Performed By: #### 2 4362-6 ####SANDRO LARAER L ([id number])[facility] ([facility])[address] [place] [address] XR CHEST 1 VIEWon 01-11-2025 XR CHEST 1 VIEW Interpreted By: Lilly Gentile, STUDY: XR CHEST 1 VIEW; 01/11/2025 3:58 am INDICATION: Signs/Symptoms:s/p cardiac surgery. COMPARISON: Radiograph dated 01/10/2025 ACCESSION NUMBER(S): [id number] ORDERING CLINICIAN: CARLIE BARBA FINDINGS: Interval removal [...] Lilly Rodriguez 01/11/2025 11:11 AM Dictation workstation: [id number] Normal [facility] Comment on above: Order Comment: AM ro unds and upright XR Chest Single viewon 01-11 UH MMODAL UH MMODAL [facility] Work Phone: Radiology Study observation (narrative) [facility] Work Phone: XR Chest Single viewOrdered By: Lilly Rodriguez on 01-11-2025 [facility] Work Phone: Anesthesia Intraoperative Tr ansesophageal EchocardiogramOrdered By: Yoseph Gutierrez on 01-10-2025 LV EF 58 % [facility] Work Phone: [facility] Work Phone: Anesthesia Intraoperative Tr ansesophageal Echocardiogramon 01-10-2025 SYNGO SYNGO [facility] Work Phone: CBC panel Auto (Bld)on 01-10 Erythrocyte distribution width (RBC) [Ratio] 13.4 % 11.5 - 14.5 % [facility] Hematocrit (Bld) [Volume fraction] 36.7 % 36.0 - 46.0 % [facility] Hemoglobin (Bld) [Mass/Vol] 11.6 g/dL Low 12.0 - 16.0 g/dL [facility] Interpretation and review of laboratory results Abnormal [facility] MCH (RBC) [Entitic mass] 27.8 pg 26. 0 - 34.0 pg [facility] MCHC (RBC) [Mass/Vol] 31.6 g/dL Low 32.0 - 36.0 g/dL [facility] MCV (RBC) [Entitic vol] 88 fL 80 - 100 fL [facility] Nucleated RBC/100 WBC (Bld) [Ratio] 0.0 % [facility] Platelets (Bld) [#/Vol] 130 10*3/uL Low [facility] RBC (Bld) [#/Vol] 4.18 10*6/uL [facility] WBC (Bld) [#/Vol] 21.3 10*3/uL High [facility] Erythrocyte distribution width (RBC) [Ratio] 13.4 % Normal 11.5-14.5 [facility] Comment on above: Performed By: #### 2 4323-8 #### SANDRO Jain ([id number]) [facility] ([facility]) [address] [place] [address] Hematocrit (Bld) [Volume fraction] 36.7 % Normal 36.0-46.0 [facility] Comment on above: Performed By: #### 2 4323-8 #### SANDRO Jain (55051) [facility] ([facility]) [address] [place] [address] Hemoglobin (Bld) [Mass/Vol] 11.6 g/dL Low 12.0-16.0 [facility] Comment on above: Performed By: #### 2 4323-8 #### SANDRO Jain ([id number]) [facility] ([facility]) [address] [place] [address] MCH (RBC) [Entitic mass] 27.8 pg Normal 26.0-34.0 [facility] Comment on above: Performed By: #### 2 4323-8 #### SANDRO Jain (47501) [facility] ([facility]) [address] [place] [address] MCHC (RBC) [Mass/Vol] 31.6 g/dL Low 32.0-36.0 [facility] Comment on above: Performed By: #### 2 4323-8 #### SANDRO Jain ([id number]) [facility] ([facility]) [address] [place] [address] MCV (RBC) [Entitic vol] 88 fL Normal 80-100 [facility] Comment on above: Performed By: #### 2 4323-8 #### SANDRO Jain (73947) [facility] ([facility]) [address] [place] [address] Nucleated RBC/100 WBC (Bld) [Ratio] 0.0 /100 WBCs Normal 0.0-0.0 [facility] Comment on above: Performed By: #### 2 4323-8 #### SANDRO Jain (39268) [facility] ([facility]) [address] [place] [address] Platelets (Bld) [#/Vol] 130 x10*3/uL Low 150-450 [facility] Comment on above: Performed By: #### 2 4323-8 #### SANDRO Jain ([id number]) [facility] ([facility]) [address] [place] [address] RBC (Bld) [#/Vol] 4.18 x10*6/uL Normal 4.00-5.20 [facility] Comment on above: Performed By: #### 2 4323-8 #### SANDRO Jain (89157) [facility] ([facility]) [address] [place] [address] WBC (Bld) [#/Vol] 21.3 x10*3/uL High 4.4-11.3 [facility] Comment on above: Performed By: #### 2 4323-8 #### SANDRO Jain (79717) [facility] ([facility]) [address] [place] [address] Calcium, Ionizedon Calcium.ionized (Bld) [Moles/Vol] 1.08 mmol/L Low 1.1 - 1.33 mmol/L [facility] Calcium.ionizedon 01-10-2025 Calcium.ionized (Bld) [Moles/Vol] 1.08 mmol/L Low 1.1-1.33 [facility] Comment on above: Result Comment: The performance characteristics of ionized calcium tested in heparinized plasma or serum have been validated by the individual laboratory site where testing is performed. Testing on heparinized plasma or serum is not approved by the FDA; however, such approval is not necessary. Performed By: #### 2 4323-8 #### SANDRO Jain (48695) [facility] ([facility]) [address] [place] [address] Calcium.ionized (Bld) [Moles /Vol]on 01-10-2025 Interpretation and review of laboratory results Abnormal [facility] Glucose Test strip manual (B ld) [Mass/Vol]on 01-10-2025 Glucose [Mass/Vol] 130 mg/dL High 74 - 99 mg/dL [facility] Interpretation and review of laboratory results Abnormal [facility] Glucose [Mass/Vol] 130 mg/dL High 74-99 [facility] Comment on above: Result Comment: MARISOL MCINTYRE Performed By: #### 2 341-6 ####SANDRO Jain ([id number])[facility] ([facility])[address] [place] [address] Glucose [Mass/Vol] 121 mg/dL High 74 - 99 mg/dL [facility] Interpretation and review of laboratory results Abnormal [facility] Glucose [Mass/Vol] 121 mg/dL High 74-99 [facility] Comment on above: Performed By: #### 2 341-6 ####SANDRO Jain ([id number])[facility] ([facility])[address] [place] [address] Glucose [Mass/Vol] 127 mg/dL High 74 - 99 mg/dL [facility] Interpretation and review of laboratory results Abnormal [facility] Glucose [Mass/Vol] 127 mg/dL High 74-99 [facility] Comment on above: Performed By: #### 2 341-6 ####SANDRO Jain (82834)[facility] ([facility])[address] [place] [address] Glucose [Mass/Vol] 163 mg/dL High 74 - 99 mg/dL [facility] Interpretation and review of laboratory results Abnormal [facility] Glucose [Mass/Vol] 163 mg/dL High 74-99 [facility] Comment on above: Performed By: #### 2 4323-8 #### SANDRO Jain (82220) [facility] ([facility]) [address] [place] [address] Magnesiumon 01-10-2025 Magnesium [Mass/Vol] 2.15 mg/dL 1.60 - 2.40 mg/dL [facility] Magnesium [Mass/Vol] 2.15 mg/dL Normal 1.60-2.40 [facility] Comment on above: Performed By: #### 2 4323-8 #### SANDRO Jain (96274) [facility] ([facility]) [address] [place] [address] Magnesium [Mass/Vol]on 01-10 Interpretation and review of laboratory results Normal [facility] No Panel Informationon 01-10 [facility] Renal function 2000 panelon 01-10-2025 Albumin BCP dye [Mass/Vol] 3.6 g/dL 3.4 - 5.0 g/dL [facility] Anion gap [Moles/Vol] 14 mmol/L 10 - 2 0 mmol/L [facility] Calcium [Mass/Vol] 8.3 mg/dL Low 8.6 - 10. 6 mg/dL [facility] Chloride [Moles/Vol] 103 mmol/L 98 - 10 7 mmol/L [facility] CO2 [Moles/Vol] 24 mmol/L 21 - 32 mmol/L [facility] Creatinine [Mass/Vol] 0.79 mg/dL 0.50 - 1.05 mg/dL [facility] eGFR - PINF [facility] Glucose [Mass/Vol] 142 mg/dL High 74 - 99 mg/dL [facility] Interpretation and review of laboratory results Abnormal [facility] Phosphate [Mass/Vol] 3.2 mg/dL 2.5 - 4 .9 mg/dL [facility] Potassium [Moles/Vol] 4.1 mmol/L 3.5 - 5.3 mmol/L [facility] Sodium [Moles/Vol] 137 mmol/L 136 - 145 mmol/L [facility] Urea nitrogen [Mass/Vol] 13 mg/dL 6 - 23 mg/d L [facility] Albumin BCP dye [Mass/Vol] 3.6 g/dL Normal 3.4-5.0 [facility] Comment on above: Performed By: #### 2 4323-8 #### SANDRO Jain (75188) [facility] ([facility]) [id number] [place] [address] Anion gap [Moles/Vol] 14 mmol/L Normal 10-20 [facility] Comment on above: Performed By: #### 2 4323-8 #### SANDRO Jain (35935) [facility] ([facility]) [address] [place] [address] Calcium [Mass/Vol] 8.3 mg/dL Low 8.6-10.6 [facility] Comment on above: Performed By: #### 2 4323-8 #### SANDRO Jain ([id number]) [facility] ([facility]) [address] [place] [address] Chloride [Moles/Vol] 103 mmol/L Normal 98-107 [facility] Comment on above: Performed By: #### 2 4323-8 #### SANDRO Jain (44887) [facility] ([facility]) [id number] [place] [address] 35826 CO2 [Moles/Vol] 24 mmol/L Normal 21-32 [facility] Comment on above: Performed By: #### 2 4323-8 #### SANDRO Jain ([id number]) [facility] ([facility]) [address] [place] [id number] Creatinine [Mass/Vol] 0.79 mg/dL Normal 0.50-1.05 [facility] Comment on above: Performed By: #### 2 4323-8 #### SANDRO Jain ([id number]) [facility] ([facility]) [address] [place] [address] Glomerular filtration rate >90 Normal >60 [facility] Comment on above: Result Comment: Calc ulations of estimated GFR are performed using the 2020 CKD-EPI Study Refit equation without the race variable for the IDMS-Traceable creatinine methods. https://jasn.asnjournals.org/content/ASN.692 9786870 Performed By: #### 2 4323-8 #### SANDRO Jain ([id number]) [facility] ([facility]) [address] [place] [address] Glucose [Mass/Vol] 142 mg/dL High 74-99 [facility] Comment on above: Performed By: #### 2 4323-8 #### SANDRO Jain ([id number]) [facility] ([facility]) [address] [place] [address] Phosphate [Mass/Vol] 3.2 mg/dL Normal 2.5-4.9 [facility] Comment on above: Performed By: #### 2 4323-8 #### SANDRO FELIX L ([id number]) [facility] ([facility]) [address] [place] [address] Potassium [Moles/Vol] 4.1 mmol/L Normal 3.5-5.3 [facility] Comment on above: Performed By: #### 2 4323-8 #### SANDRO FELIX L ([id number]) [facility] ([facility]) [address] [place] [address] Sodium [Moles/Vol] 137 mmol/L Normal 136-145 [facility] Comment on above: Performed By: #### 2 4323-8 #### SANDRO FELIX L ([id number]) [facility] ([facility]) [address] [place] [address] Urea nitrogen [Mass/Vol] 13 mg/dL Normal 6-23 [facility] Comment on above: Performed By: #### 2 4323-8 #### SANDRO Jain ([id number]) [facility] ([facility]) [address] [place] [address] XR CHEST 1 VIEWon 01-10-2025 XR CHEST 1 VIEW Interpreted By: Niraj Bella and Nadeau Simon STUDY: XR CHEST 1 VIEW; 01/10/2025 4:26 am INDICATION: Signs/Symptoms:Post op cardiac surgery. COMPARISON: Chest radiograph 01/09/2025 ACCESSION NUMBER(S): [id number] ORDERING CLINICIAN: CLAUS LOPEZ FINDINGS: AP radiograph [...] findings as stated by Aries Roldan D.O. (residential leasing manager). This study was interpreted at [place], [place]. MACRO: None Signed by: Niraj Bella 01/10/2025 3:09 PM Dictation workstation: [id number] Normal [facility] Comment on above: Order Comment: Jaejose luis nikunj in ICU XR Chest Single viewon 01-10 [facility] MMODAL U[facility] MMODAL [facility] Work Phone: [facility] Work Phone: Radiology Study observation (narrative) [facility] Work Phone: ACT Coag (Bld)on 01-09-2025 Interpretation and review of laboratory results Normal [facility] Interpretation and review of laboratory results Abnormal [facility] Interpretation and review of laboratory results Abnormal [facility] Interpretation and review of laboratory results Abnormal [facility] Interpretation and review of laboratory results Abnormal [facility] Interpretation and review of laboratory results Normal [facility] ACTIVATED CLOTTING TIME HIGH on 01-09-2025 ACT Coag (Bld) 112 [facility] Comment on above: Target ACT range laly l vary based on the patient population, clinical status, and surgical intervention occurring. ACT Coag (Bld) 415 s [facility] Comment on above: Target ACT range laly l vary based on the patient population, clinical status, and surgical intervention occurring. ACT Coag (Bld) 472 s [facility] Comment on above: Target ACT range laly l vary based on the patient population, clinical status, and surgical intervention occurring. ACT Coag (Bld) 582 s [facility] Comment on above: Target ACT range laly l vary based on the patient population, clinical status, and surgical intervention occurring. ACT Coag (Bld) 505 s [facility] Comment on above: Target ACT range laly l vary based on the patient population, clinical status, and surgical intervention occurring. ACT Coag (Bld) 109 [facility] Comment on above: Target ACT range laly l vary based on the patient population, clinical status, and surgical intervention occurring. 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 The left ventricular systolic function is normal with a visually estimated ejection fraction of 55-60%. 2. There is normal right ventricular global systolic function. 3. The left atrium is enlarged. 4. Severe mitral valve regurgitation. 5. Moderate tricuspid regurgitation visualized. Normal [facility] Activated clotting timeon ACT Coag (Bld) 112 s Normal 82-174 [facility] Comment on above: Result Comment: Targ et ACT range will vary based on the patient population, clinical status, and surgical intervention occurring. Performed By: #### 3 4529-8 #### SANDRO Jain ([id number]) [facility] ([facility]) [address] [place] [address] ACT Coag (Bld) [address] Comment on above: Result Comment: Targ et ACT range will vary based on the patient population, clinical status, and surgical intervention occurring. Performed By: #### 3 4529-8 #### SANDRO Jain ([id number]) [facility] ([facility]) [address] [place] [address] ACT Coag (Bld) [address] Comment on above: Result Comment: Targ et ACT range will vary based on the patient population, clinical status, and surgical intervention occurring. Performed By: #### 3 4529-8 #### SANDRO Jain ([id number]) [facility] ([facility]) [address] [place] [address] 690[address] ACT Coag (Bld) [address] Comment on above: Result Comment: Targ et ACT range will vary based on the patient population, clinical status, and surgical intervention occurring. Performed By: #### 3 4529-8 #### SANDRO Jain ([id number]) [facility] ([facility]) [address] [place] [address] ACT Coag (Bld) [address] [place] [address] [facility] Comment on above: Result Comment: Targ et ACT range will vary based on the patient population, clinical status, and surgical intervention occurring. Performed By: #### 5 8077-9 #### SANDRO Jain ([id number]) [facility] ([facility]) [address] [place] [address] ACT Coag (Bld) 109 s Normal 82-174 [facility] Comment on above: Result Comment: Targ et ACT range will vary based on the patient population, clinical status, and surgical intervention occurring. Performed By: #### 5 8077-9 #### SANDRO Jain ([id number]) [facility] ([facility]) [address] [place] [address] Blood type and Indirect anti body screen panel (Bld)on 01-09-2025 ABO group Nom (Bld) A [facility] Blood group antibody screen Ql Negative [facility] D Ag Ql (Bld) Positive [facility] ABO group Nom (Bld) A Normal [facility] Comment on above: Performed By: #### 5 8077-9 #### SANDRO Jain ([id number]) [facility] ([facility]) [address] [place] [address] Blood group antibody screen Ql Negative [facility] Comment on above: Performed By: #### 5 8077-9 #### SANDRO Jain ([id number]) [facility] ([facility]) [address] [place] [address] D Ag Ql (Bld) Positive [facility] Comment on above: Performed By: #### 5 8077-9 #### SANDRO Jain ([id number]) [facility] ([facility]) [address] [place] [address] CBC panel Auto (Bld)on 01-09 Erythrocyte distribution width (RBC) [Ratio] 13.1 % 11.5 - 14.5 % [facility] Hematocrit (Bld) [Volume fraction] 36.1 % 36.0 - 46.0 % [facility] Hemoglobin (Bld) [Mass/Vol] 11.6 g/dL Low 12.0 - 16.0 g/dL [facility] Interpretation and review of laboratory results Abnormal [facility] MCH (RBC) [Entitic mass] 28.2 pg 26. 0 - 34.0 pg [facility] MCHC (RBC) [Mass/Vol] 32.1 g/dL 32.0 - 36.0 g/dL [facility] MCV (RBC) [Entitic vol] 88 fL 80 - 100 fL [facility] Nucleated RBC/100 WBC (Bld) [Ratio] 0.0 % [facility] Platelets (Bld) [#/Vol] 109 10*3/uL Low [facility] RBC (Bld) [#/Vol] 4.11 10*6/uL Unive [facility] WBC (Bld) [#/Vol] 22.2 10*3/uL [facility] Erythrocyte distribution width (RBC) [Ratio] 13.1 % Normal 11.5-14.5 [facility] Comment on above: Order Comment: On ad giovani to ICU Performed By: #### 1 988-5 #### SANDRO Jain ([id number]) [facility] ([facility]) [address] [place] [address] Hematocrit (Bld) [Volume fraction] 36.1 % Normal 36.0-46.0 [facility] Comment on above: Order Comment: On ad giovani to ICU Performed By: #### 1 988-5 #### SANDRO Jain ([id number]) [facility] ([facility]) [address] [place] [address] 81894 Hemoglobin (Bld) [Mass/Vol] 11.6 g/dL Low 12.0-16.0 [facility] Comment on above: Order Comment: On ad giovani to ICU Performed By: #### 1 988-5 #### SANDRO Jain ([id number]) [facility] ([facility]) [address] [place] [address] 02558 MCH (RBC) [Entitic mass] 28.2 pg Normal 26.0-34.0 [facility] Comment on above: Order Comment: On ad giovani to ICU Performed By: #### 1 988-5 #### SANDRO Jain ([id number]) [facility] ([facility]) [address] [place] [address] 70750 MCHC (RBC) [Mass/Vol] 32.1 g/dL Normal 32.0-36.0 [facility] Comment on above: Order Comment: On ad giovani to ICU Performed By: #### 1 988-5 #### SANDRO Jain ([id number]) [facility] ([facility]) [address] [place] [address] 18194 MCV (RBC) [Entitic vol] 88 fL Normal 80-100 U [facility] Comment on above: Order Comment: On ad giovani to ICU Performed By: #### 1 988-5 #### SANDRO Jain ([id number]) [facility] ([facility]) [address] [place] [address] 88954 Nucleated RBC/100 WBC (Bld) [Ratio] 0.0 /100 WBCs Normal 0.0-0.0 [facility] Comment on above: Order Comment: On ad giovani to ICU Performed By: #### 1 988-5 #### SANDRO Jain ([id number]) [facility] ([facility]) [address] [place] [address] 22563 Platelets (Bld) [#/Vol] 109 x10*3/uL Low 150-450 [facility] Comment on above: Order Comment: On ad giovani to ICU Performed By: #### 1 988-5 #### SANDRO Jain ([id number]) [facility] ([facility]) [address] [place] [address] 09955 RBC (Bld) [#/Vol] 4.11 x10*6/uL Normal 4.00-5.20 [facility] Comment on above: Order Comment: On ad giovani to ICU Performed By: #### 1 988-5 #### SANDRO Jain ([id number]) [facility] ([facility]) [address] [place] [address] WBC (Bld) [#/Vol] 22.2 x10*3/uL High 4.4-11.3 [facility] Comment on above: Order Comment: On ad giovani to ICU Performed By: #### 1 988-5 #### SANDRO Jain ([id number]) [facility] ([facility]) [address] [place] [address] Carboxyhemoglobin (BldA) [Ma ss fraction]on 01-09-2025 Deoxyhemoglobin (BldA) [Mass fraction] 1.7 % 0.0 - 5.0 % [facility] Methemoglobin (BldA) [Mass fraction] 0.4 % 0.0 - 1.5 % [facility] Deoxyhemoglobin (BldA) [Mass fraction] 1.7 % Normal 0.0-5.0 [facility] Comment on above: Performed By: #### 1 988-5 #### SANDRO Jain ([id number]) [facility] ([facility]) [address] [place] [address] 15248 Methemoglobin (BldA) [Mass fraction] 0.4 % Normal 0.0-1.5 [facility] Comment on above: Performed By: #### 1 988-5 #### SANDRO Jain ([id number]) [facility] ([facility]) [address] [place] [address] Deoxyhemoglobin (BldA) [Mass fraction] 0.6 % 0.0 - 5.0 % [facility] Methemoglobin (BldA) [Mass fraction] 0.1 % 0.0 - 1.5 % [facility] Deoxyhemoglobin (BldA) [Mass fraction] 0.6 % Normal 0.0-5.0 [facility] Comment on above: Performed By: #### 3 4529-8 #### SANDRO Jain ([id number]) [facility] ([facility]) [address] [place] [address] Methemoglobin (BldA) [Mass fraction] 0.1 % Normal 0.0-1.5 [facility] Comment on above: Performed By: #### 3 4529-8 #### SANDRO Jain ([id number]) [facility] ([facility]) [address] [place] [address] 62606 Deoxyhemoglobin (BldA) [Mass fraction] 0.8 % 0.0 - 5.0 % [facility] Methemoglobin (BldA) [Mass fraction] 0.6 % 0.0 - 1.5 % [facility] Deoxyhemoglobin (BldA) [Mass fraction] 0.8 % Normal 0.0-5.0 [facility] Comment on above: Performed By: #### 3 4529-8 #### SANDRO Jain (84993) [facility] ([facility]) [address] [place] [address] 53674 Methemoglobin (BldA) [Mass fraction] 0.6 % Normal 0.0-1.5 [facility] Comment on above: Performed By: #### 3 4529-8 #### SANDRO Jain ([id number]) [facility] ([facility]) [address] [place] [address] 49670 Deoxyhemoglobin (BldA) [Mass fraction] 0.1 % 0.0 - 5.0 % [facility] Methemoglobin (BldA) [Mass fraction] 0.0 % 0.0 - 1.5 % [facility] Deoxyhemoglobin (BldA) [Mass fraction] 0.1 % Normal 0.0-5.0 [facility] Comment on above: Performed By: #### 3 4529-8 #### SANDRO Jain ([id number]) [facility] ([facility]) [address] [place] [address] 10984 Methemoglobin (BldA) [Mass fraction] 0.0 % Normal 0.0-1.5 [facility] Comment on above: Performed By: #### 3 4529-8 #### SANDRO Jain ([id number]) [facility] ([facility]) [address] [place] [address] 88779 Deoxyhemoglobin (BldA) [Mass fraction] 0.4 % 0.0 - 5.0 % [facility] Methemoglobin (BldA) [Mass fraction] 0.5 % 0.0 - 1.5 % [facility] Deoxyhemoglobin (BldA) [Mass fraction] 0.4 % Normal 0.0-5.0 [facility] Comment on above: Performed By: #### 5 8077-9 #### SANDRO Jain ([id number]) [facility] ([facility]) [address] [place] [address] 67086 Methemoglobin (BldA) [Mass fraction] 0.5 % Normal 0.0-1.5 [facility] Comment on above: Performed By: #### 5 8077-9 #### SANDRO Jain ([id number]) [facility] ([facility]) [address] [place] [address] 32416 Deoxyhemoglobin (BldA) [Mass fraction] 0.7 % 0.0 - 5.0 % [facility] Methemoglobin (BldA) [Mass fraction] 0.4 % 0.0 - 1.5 % [facility] Deoxyhemoglobin (BldA) [Mass fraction] 0.7 % Normal 0.0-5.0 [facility] Comment on above: Performed By: #### 5 8077-9 #### SANDRO Jain ([id number]) [facility] ([facility]) [address] [place] [address] 71775 Methemoglobin (BldA) [Mass fraction] 0.4 % Normal 0.0-1.5 [facility] Comment on above: Performed By: #### 5 8077-9 #### SANDRO Jain ([id number]) [facility] ([facility]) [address] [place] [address] 59476 Deoxyhemoglobin (BldA) [Mass fraction] 0.5 % 0.0 - 5.0 % [facility] Methemoglobin (BldA) [Mass fraction] 0.5 % 0.0 - 1.5 % [facility] Deoxyhemoglobin (BldA) [Mass fraction] 0.5 % Normal 0.0-5.0 [facility] Comment on above: Performed By: #### 2 030-5 #### SANDRO Jain ([id number]) [facility] ([facility]) [address] [place] [address] 93651 Methemoglobin (BldA) [Mass fraction] 0.5 % Normal 0.0-1.5 [facility] Comment on above: Performed By: #### 2 030-5 #### SANDRO Jain ([id number]) [facility] ([facility]) [address] [place] [address] 92690 Carboxyhemoglobin (BldV) [Ma ss fraction]on 01-09-2025 Methemoglobin (BldV) [Mass fraction] 0.0 % 0.0 - 1.5 % [facility] Methemoglobin (BldV) [Mass fraction] 0.0 % Normal 0.0-1.5 [facility] Comment on above: Performed By: #### 5 8077-9 #### SANDRO Jain (25749) [facility] ([facility]) [address] [place] [address] 07091 Carboxyhemoglobin/Hemoglobin .totalon 01-09-2025 Carboxyhemoglobin (BldA) [Mass fraction] 1.2 % Normal [facility] Comment on above: Result Comment: Ref Values Non-Smokers 0.5-1.5% Smokers 0.5-10.0% Performed By: #### 1 988-5 #### SANDRO Jain ([id number]) [facility] ([facility]) [address] [place] [address] 95272 Carboxyhemoglobin (BldA) [Mass fraction] 0.8 % Normal [facility] Comment on above: Result Comment: Ref Values Non-Smokers 0.5-1.5% Smokers 0.5-10.0% Performed By: #### 3 4529-8 #### SANDRO Jain ([id number]) [facility] ([facility]) [address] [place] [address] 94982 Carboxyhemoglobin (BldA) [Mass fraction] 0.8 % Normal [facility] Comment on above: Result Comment: Ref Values Non-Smokers 0.5-1.5% Smokers 0.5-10.0% Performed By: #### 3 4529-8 #### SANDRO Jain (16954) [facility] ([facility]) [address] [place] [address] 54612 Carboxyhemoglobin (BldA) [Mass fraction] 1.1 % [facility] Comment on above: Result Comment: Ref Values Non-Smokers 0.5-1.5% Smokers 0.5-10.0% Performed By: #### 3 4529-8 #### SANDRO Jain (05999) [facility] ([facility]) [address] [place] [address] 36378 Carboxyhemoglobin (BldV) [Mass fraction] 1.3 % [facility] Comment on above: Result Comment: Ref Values Non-Smokers 0.5-1.5% Smokers 0.5-10.0% Performed By: #### 5 8077-9 #### SANDRO Jain ([id number]) [facility] ([facility]) [address] [place] [address] 69555 Carboxyhemoglobin (BldA) [Mass fraction] 0.9 % [facility] Comment on above: Result Comment: Ref Values Non-Smokers 0.5-1.5% Smokers 0.5-10.0% Performed By: #### 5 8077-9 #### SANDRO Jain ([id number]) [facility] ([facility]) [address] [place] [address] 74227 Carboxyhemoglobin (BldA) [Mass fraction] 0.8 % [facility] Comment on above: Result Comment: Ref Values Non-Smokers 0.5-1.5% Smokers 0.5-10.0% Performed By: #### 5 8077-9 #### SANDRO Jain ([id number]) [facility] ([facility]) [address] [place] [address] 41190 Carboxyhemoglobin (BldA) [Mass fraction] 1.0 % Normal [facility] Comment on above: Result Comment: Ref Values Non-Smokers 0.5-1.5% Smokers 0.5-10.0% Performed By: #### 2 030-5 #### SANDRO Jain (47019) [facility] ([facility]) [address] [place] [address] Coox Panel, Arterial Unsolic itedon 01-09-2025 Carboxyhemoglobin (BldA) [Mass fraction] 1.2 % [facility] Carboxyhemoglobin (BldA) [Mass fraction] 0.8 % [facility] Carboxyhemoglobin (BldA) [Mass fraction] 0.8 % [facility] Carboxyhemoglobin (BldA) [Mass fraction] 1.1 % [facility] Carboxyhemoglobin (BldA) [Mass fraction] 0.9 % [facility] Carboxyhemoglobin (BldA) [Mass fraction] 0.8 % [facility] Carboxyhemoglobin (BldA) [Mass fraction] 1.0 % [facility] Coox Panel, Venous Unsolicit edon 01-09-2025 Carboxyhemoglobin (BldV) [Mass fraction] 1.3 % [facility] Fibrinogenon 01-09-2025 Fibrinogen Coag (PPP) [Mass/Vol] 158 mg/dL Low 200 - 400 mg/dL [facility] Fibrinogen Coag (PPP) [Mass/Vol] 158 mg/dL Low 200-400 [facility] Comment on above: Order Comment: On ad giovani to ICU Performed By: #### 1 988-5 #### SANDRO Jain ([id number]) [facility] ([facility]) [address] [place] [address] Funguson 01-09-2025 Fungus identified Cx Nom (Unsp spec) Test: Fungal Culture/Smear Specimen Source: THROMBUS (CLOT) Specimen Type: Tissue Specimen Date: 01/09/2025914 Result Date: 01/22/20251236 Result Status: Preliminary result Resulting Lab: [facility] [address] [place] [address] CULTURE No fungi isolated. STAIN No fungal elements seen Normal [facility] Comment on above: Performed By: #### 2 4323-8 #### SANDRO Jain ([id number]) [facility] ([facility]) [address] [place] [address] 50463 Gason 01-09-2025 Hemoglobin (Bld) [Mass/Vol] 11.0 g/dL Low 12.0-16.0 [facility] Comment on above: Performed By: #### 1 988-5 #### SANDRO Jain ([id number]) [facility] ([facility]) [address] [place] [address] 88878 Oxyhemoglobin (BldA) [Mass fraction] 96.7 % Normal 94.0-98.0 [facility] Comment on above: Performed By: #### 1 988-5 #### SANDRO Jain (85004) [facility] ([facility]) [address] [place] [address] 41541 Hemoglobin (Bld) [Mass/Vol] 8.6 g/dL Low 12.0-16.0 [facility] Comment on above: Performed By: #### 3 4529-8 #### SANDRO Jain ([id number]) [facility] ([facility]) [address] [place] [address] 80113 Oxyhemoglobin (BldA) [Mass fraction] 98.5 % High 94.0-98.0 [facility] Comment on above: Performed By: #### 3 4529-8 #### SANDRO Jain ([id number]) [facility] ([facility]) [address] [place] [address] 39464 Hemoglobin (Bld) [Mass/Vol] 10.7 g/dL Low 12.0-16.0 [facility] Comment on above: Performed By: #### 3 4529-8 #### SANDRO Jain ([id number]) [facility] ([facility]) [address] [place] [address] 73463 Oxyhemoglobin (BldA) [Mass fraction] 97.8 % Normal 94.0-98.0 [facility] Comment on above: Performed By: #### 3 4529-8 #### SANDRO Jain ([id number]) [facility] ([facility]) [address] [place] [address] 77791 Hemoglobin (Bld) [Mass/Vol] 10.5 g/dL Low 12.0-16.0 [facility] Comment on above: Performed By: #### 3 4529-8 #### SANDRO Jain ([id number]) [facility] ([facility]) [id number] [place] [address] 73594 Oxyhemoglobin (BldA) [Mass fraction] 98.8 % High 94.0-98.0 [facility] Comment on above: Performed By: #### 3 4529-8 #### SANDRO Jain ([id number]) [facility] ([facility]) [address] [place] [address] 07163 Hemoglobin (Bld) [Mass/Vol] 11.4 g/dL Low 12.0-16.0 [facility] Comment on above: Performed By: #### 5 8077-9 #### SANDRO Jain ([id number]) [facility] ([facility]) [address] [place] [address] 76065 Oxyhemoglobin (BldA) [Mass fraction] 98.2 % High 94.0-98.0 [facility] Comment on above: Performed By: #### 5 8077-9 #### SANDRO Jain ([id number]) [facility] ([facility]) [address] [place] [address] 87372 Hemoglobin (Bld) [Mass/Vol] 13.1 g/dL Normal 12.0-16.0 [facility] Comment on above: Performed By: #### 5 8077-9 #### SANDRO Jain ([id number]) [facility] ([facility]) [address] [place] [address] 70295 Oxyhemoglobin (BldA) [Mass fraction] 98.1 % High 94.0-98.0 [facility] Comment on above: Performed By: #### 5 8077-9 #### SANDRO Jain ([id number]) [facility] ([facility]) [address] [place] [address] Hemoglobin (Bld) [Mass/Vol] 13.3 g/dL Normal 12.0-16.0 [facility] Comment on above: Performed By: #### 9 3685-6 #### SANDRO Jain ([id number]) [facility] ([facility]) [address] [place] [address] Performed By: #### 2 030-5 #### SANDRO Jain ([id number]) [facility] ([facility]) [address] [place] [address] Oxyhemoglobin (BldA) [Mass fraction] 98.1 % High 94.0-98.0 [facility] Comment on above: Performed By: #### 9 3685-6 #### SANDRO Jain ([id number]) [facility] ([facility]) [address] [place] [address] Performed By: #### 2 030-5 #### SANDRO Jain ([id number]) [facility] ([facility]) [address] [place] [address] Gas and Carbon monoxide and Electrolytes panel (BldA)on 01-09-2025 Anion gap 4 (BldA) [Moles/Vol] 12 [facility] Base excess Calc (Bld) [Moles/Vol] -4.9000 mmol/L Low -2.0 - 3.0 mmol/L [facility] Calcium.ionized (BldA) [Moles/Vol] 1.05 mmol/L Low 1.10 - 1.33 mmol/L [facility] Chloride (BldA) [Moles/Vol] 107 mmol/L 98 - 107 mmol/L [facility] CO2 (Bld) [Partial pressure] 39 mm[Hg] [facility] Glucose [Mass/Vol] 204 mg/dL High 74 - 99 mg/dL [facility] HCO3 (Bld) [Moles/Vol] 20.6 mmol/L Low 22.0 - 26.0 mmol/L [facility] Hematocrit Est (Bld) [Volume fraction] 39.0 % 36.0 - 46.0 % [facility] Hemoglobin (Bld) [Mass/Vol] 13.0 g/dL 12.0 - 16.0 g/dL [facility] Inhaled oxygen concentration 40 % [facility] Interpretation and review of laboratory results Abnormal [facility] Lactate (BldA) [Moles/Vol] 1.3 mmol/L 0.4 - 2.0 mmol/L [facility] Oxygen (Bld) [Partial pressure] 169 mm[Hg] High [facility] Oxyhemoglobin (BldA) [Mass fraction] 97.6 % 94.0 - 98.0 % [facility] pH (Bld) 7.33 [pH] Low 7.38 - 7.42 pH [facility] Potassium (BldA) [Moles/Vol] 4.1 mmol/L 3.5 - 5.3 mmol/L [facility] Sodium (BldA) [Moles/Vol] 135 mmol/L Low 136 - 145 mmol/L [facility] Anion gap 4 (BldA) [Moles/Vol] 12 mmo/L Normal 10-25 [facility] Comment on above: Performed By: #### 2 4323-8 #### SANDRO Jain ([id number]) [facility] ([facility]) [address] [place] [address] 29338 Base excess Calc (Bld) [Moles/Vol] -4.9000 mmol/L Low -2.0-3.0 [facility] Comment on above: Performed By: #### 2 4323-8 #### SANDRO Jain ([id number]) [facility] ([facility]) [address] [place] [address] 64047 Calcium.ionized (BldA) [Moles/Vol] 1.05 mmol/L Low 1.10-1.33 [facility] Comment on above: Performed By: #### 2 4323-8 #### SANDRO Jain ([id number]) [facility] ([facility]) [address] [place] [address] Chloride (BldA) [Moles/Vol] 107 mmol/L Normal 98-107 [facility] Comment on above: Performed By: #### 2 4323-8 #### SANDRO Jain ([id number]) [facility] ([facility]) [address] [place] [address] 03074 CO2 (Bld) [Partial pressure] 39 mm Hg Normal 38-42 [facility] Comment on above: Performed By: #### 2 4323-8 #### SANDRO Jain ([id number]) [facility] ([facility]) [address] [place] [address] 86212 Glucose [Mass/Vol] 204 mg/dL High 74-99 [facility] Comment on above: Performed By: #### 2 4323-8 #### SANDRO Jain ([id number]) [facility] ([facility]) [address] [place] [address] 47665 HCO3 (Bld) [Moles/Vol] 20.6 mmol/L Low 22.0-26.0 U [facility] Comment on above: Performed By: #### 2 4323-8 #### SANDRO Jain ([id number]) [facility] ([facility]) [address] [place] [address] 26477 Hematocrit Est (Bld) [Volume fraction] 39.0 % Normal 36.0-46.0 [facility] Comment on above: Performed By: #### 2 4323-8 #### SANDRO Jain ([id number]) [facility] ([facility]) [address] [place] [address] 78652 Hemoglobin (Bld) [Mass/Vol] 13.0 g/dL Normal 12.0-16.0 [facility] Comment on above: Performed By: #### 2 4323-8 #### SANDRO Jain ([id number]) [facility] ([facility]) [address] [place] [address] 77544 Inhaled oxygen concentration 40 % Normal [facility] Comment on above: Performed By: #### 2 4323-8 #### SANDRO Jain ([id number]) [facility] ([facility]) [address] [place] [address] 55513 Lactate (BldA) [Moles/Vol] 1.3 mmol/L Normal 0.4-2.0 [facility] Comment on above: Performed By: #### 2 4323-8 #### SANDRO Jain ([id number]) [facility] ([facility]) [address] [place] [address] 70133 Oxygen (Bld) [Partial pressure] 169 mm Hg High 85-95 [facility] Comment on above: Performed By: #### 2 4323-8 #### SANDRO Jain ([id number]) [facility] ([facility]) [address] [place] [address] 67514 Oxyhemoglobin (BldA) [Mass fraction] 97.6 % Normal 94.0-98.0 [facility] Comment on above: Performed By: #### 2 4323-8 #### SANDRO Jain ([id number]) [facility] ([facility]) [address] [place] [address] 14873 pH (Bld) 7.33 [pH] Low 7.38-7.42 [facility] Comment on above: Performed By: #### 2 4323-8 #### SANDRO Jain ([id number]) [facility] ([facility]) [address] [place] [address] 04697 Potassium (BldA) [Moles/Vol] 4.1 mmol/L Normal 3.5-5.3 [facility] Comment on above: Performed By: #### 2 4323-8 #### SANDRO Jain ([id number]) [facility] ([facility]) [address] [place] [address] 41737 Sodium (BldA) [Moles/Vol] 135 mmol/L Low 136-145 [facility] Comment on above: Performed By: #### 2 4323-8 #### SANDRO Jain ([id number]) [facility] ([facility]) [address] [place], [place] [address] [address] Anion gap 4 (BldA) [Moles/Vol] 10 [facility] Base excess Calc (Bld) [Moles/Vol] -4.4000 mmol/L Low -2.0 - 3.0 mmol/L [facility] Calcium.ionized (BldA) [Moles/Vol] 1.10 mmol/L 1.10 - 1.33 mmol/L [facility] Chloride (BldA) [Moles/Vol] 107 mmol/L 98 - 107 mmol/L [facility] CO2 (Bld) [Partial pressure] 39 mm[Hg] [facility] Glucose [Mass/Vol] 207 mg/dL High 74 - 99 mg/dL [facility] HCO3 (Bld) [Moles/Vol] 21.0 mmol/L Low 22.0 - 26.0 mmol/L [facility] Hematocrit Est (Bld) [Volume fraction] 42.0 % 36.0 - 46.0 % [facility] Hemoglobin (Bld) [Mass/Vol] 13.9 g/dL 12.0 - 16.0 g/dL [facility] Inhaled oxygen concentration 40 % [facility] Interpretation and review of laboratory results Abnormal [facility] Lactate (BldA) [Moles/Vol] 1.5 mmol/L 0.4 - 2.0 mmol/L [facility] Oxygen (Bld) [Partial pressure] 168 mm[Hg] High [facility] Oxyhemoglobin (BldA) [Mass fraction] 97.5 % 94.0 - 98.0 % [facility] pH (Bld) 7.34 [pH] Low 7.38 - 7.42 pH [facility] Potassium (BldA) [Moles/Vol] 4.6 mmol/L 3.5 - 5.3 mmol/L [facility] Sodium (BldA) [Moles/Vol] 133 mmol/L Low 136 - 145 mmol/L [facility] Anion gap 4 (BldA) [Moles/Vol] 10 mmo/L Normal 10-25 [facility] Comment on above: Performed By: #### 2 4323-8 #### SANDRO [id number]) [facility] ([facility]) [address] [place] [address] Base excess Calc (Bld) [Moles/Vol] -4.4000 mmol/L Low -2.0-3.0 [facility] Comment on above: Performed By: #### 2 4323-8 #### SANDRO Jain ([id number]) [facility] ([facility]) [address] [place] [address] 78390 Calcium.ionized (BldA) [Moles/Vol] 1.10 mmol/L Normal 1.10-1.33 [facility] Comment on above: Performed By: #### 2 4323-8 #### SANDRO Jain ([id number]) [facility] ([facility]) [address] [place] [address] 43510 Chloride (BldA) [Moles/Vol] 107 mmol/L Normal 98-107 [facility] Comment on above: Performed By: #### 2 4323-8 #### SANDRO Jain ([id number]) [facility] ([facility]) [address] [place] [address] 43511 CO2 (Bld) [Partial pressure] 39 mm Hg Normal 38-42 [facility] Comment on above: Performed By: #### 2 4323-8 #### SANDRO Jain ([id number]) [facility] ([facility]) [address] [place] [address] 10395 Glucose [Mass/Vol] 207 mg/dL High 74-99 [facility] Comment on above: Performed By: #### 2 4323-8 #### SANDRO Jain ([id number]) [facility] ([facility]) [address] [place] [address] 26720 HCO3 (Bld) [Moles/Vol] 21.0 mmol/L Low 22.0-26.0 [facility] Comment on above: Performed By: #### 2 4323-8 #### SANDRO Jain ([id number]) [facility] ([facility]) [address] [place] [address] 69208 Hematocrit Est (Bld) [Volume fraction] 42.0 % Normal 36.0-46.0 [facility] Comment on above: Performed By: #### 2 4323-8 #### SANDRO Jain ([id number]) [facility] ([facility]) [address] [place] [address] 89417 Hemoglobin (Bld) [Mass/Vol] 13.9 g/dL Normal 12.0-16.0 [facility] Comment on above: Performed By: #### 2 4323-8 #### ASNDRO Jain ([id number]) [facility] ([facility]) [address] [place] [address] 61892 Inhaled oxygen concentration 40 % Normal [facility] Comment on above: Performed By: #### 2 4323-8 #### SANDRO Jain ([id number]) [facility] ([facility]) [address] [place] [address] 54252 Lactate (BldA) [Moles/Vol] 1.5 mmol/L Normal 0.4-2.0 [facility] Comment on above: Performed By: #### 2 4323-8 #### SANDRO Jain ([id number]) [facility] ([facility]) [address] [place] [address] 64278 Oxygen (Bld) [Partial pressure] 168 mm Hg High 85-95 [facility] Comment on above: Performed By: #### 2 4323-8 #### SANDRO Jain ([id number]) [facility] ([facility]) [address] [place] [address] 93520 Oxyhemoglobin (BldA) [Mass fraction] 97.5 % Normal 94.0-98.0 [facility] Comment on above: Performed By: #### 2 4323-8 #### SANDRO Jain ([id number]) [facility] ([facility]) [address] [place] [address] 53451 pH (Bld) 7.34 [pH] Low 7.38-7.42 [facility] Comment on above: Performed By: #### 2 4323-8 #### SANDRO Jain ([id number]) [facility] ([facility]) [address] [place] [address] Potassium (BldA) [Moles/Vol] 4.6 mmol/L Normal 3.5-5.3 [facility] Comment on above: Performed By: #### 2 4323-8 #### SANDRO Jain ([id number]) [facility] ([facility]) [address] [place] [address] Sodium (BldA) [Moles/Vol] 133 mmol/L Low 136-145 [facility] Comment on above: Performed By: #### 2 4323-8 #### SANDRO Jain ([id number]) [facility] ([facility]) [address] [place] [address] Anion gap 4 (BldA) [Moles/Vol] 10 [facility] Base excess Calc (Bld) [Moles/Vol] -1.8000 mmol/L -2.0 - 3.0 mmol/L [facility] Calcium.ionized (BldA) [Moles/Vol] 1.16 mmol/L 1.10 - 1.33 mmol/L [facility] Chloride (BldA) [Moles/Vol] 107 mmol/L 98 - 107 mmol/L [facility] CO2 (Bld) [Partial pressure] 33 mm[Hg] Low [facility] Glucose [Mass/Vol] 125 mg/dL High 74 - 99 mg/dL [facility] HCO3 (Bld) [Moles/Vol] 21.9 mmol/L Low 22.0 - 26.0 mmol/L [facility] Hematocrit Est (Bld) [Volume fraction] 38.0 % 36.0 - 46.0 % [facility] Hemoglobin (Bld) [Mass/Vol] 12.5 g/dL 12.0 - 16.0 g/dL [facility] Inhaled oxygen concentration 50 % [facility] Interpretation and review of laboratory results Abnormal [facility] Lactate (BldA) [Moles/Vol] 1.3 mmol/L 0.4 - 2.0 mmol/L [facility] Oxygen (Bld) [Partial pressure] 163 mm[Hg] High [facility] Oxyhemoglobin (BldA) [Mass fraction] 97.5 % 94.0 - 98.0 % [facility] pH (Bld) 7.43 [pH] High 7.38 - 7.42 pH [facility] Potassium (BldA) [Moles/Vol] 4.5 mmol/L 3.5 - 5.3 mmol/L [facility] Sodium (BldA) [Moles/Vol] 134 mmol/L Low 136 - 145 mmol/L [facility] Anion gap 4 (BldA) [Moles/Vol] 10 mmo/L Normal 10-25 [facility] Comment on above: Performed By: #### 1 988-5 #### SANDRO Jain ([id number]) [facility] ([facility]) [address] [place] [address] 29934 Base excess Calc (Bld) [Moles/Vol] -1.8000 mmol/L Normal -2.0-3.0 [facility] Comment on above: Performed By: #### 1 988-5 #### SANDRO Jain ([id number]) [facility] ([facility]) [address] [place] [address] 90110 Calcium.ionized (BldA) [Moles/Vol] 1.16 mmol/L Normal 1.10-1.33 [facility] Comment on above: Performed By: #### 1 988-5 #### SANDRO Jain ([id number]) [facility] ([facility]) [address] [place] [address] 05083 Chloride (BldA) [Moles/Vol] 107 mmol/L Normal 98-107 [facility] Comment on above: Performed By: #### 1 988-5 #### SANDRO Jain ([id number]) [facility] ([facility]) [address] [place] [address] 95163 CO2 (Bld) [Partial pressure] 33 mm Hg Low 38-42 [facility] Comment on above: Performed By: #### 1 988-5 #### SANDRO Jain ([id number]) [facility] ([facility]) [address] [place] [address] Glucose [Mass/Vol] 125 mg/dL High 74-99 [facility] Comment on above: Performed By: #### 1 988-5 #### SANDRO Jain ([id number]) [facility] ([facility]) [address] [place] [address] 14163 HCO3 (Bld) [Moles/Vol] 21.9 mmol/L Low 22.0-26.0 [facility] Comment on above: Performed By: #### 1 988-5 #### SANDRO Jain ([id number]) [facility] ([facility]) [address] [place] [address] 08996 Hematocrit Est (Bld) [Volume fraction] 38.0 % Normal 36.0-46.0 [facility] Comment on above: Performed By: #### 1 988-5 #### SANDRO Jain ([id number]) [facility] ([facility]) [address] [place] [address] 18406 Hemoglobin (Bld) [Mass/Vol] 12.5 g/dL Normal 12.0-16.0 [facility] Comment on above: Performed By: #### 1 988-5 #### SANDRO Jain ([id number]) [facility] ([facility]) [address] [place] [address] 17832 Inhaled oxygen concentration 50 % Normal [facility] Comment on above: Performed By: #### 1 988-5 #### SANDRO Jain ([id number]) [facility] ([facility]) [address] [place] [address] 85180 Lactate (BldA) [Moles/Vol] 1.3 mmol/L Normal 0.4-2.0 [facility] Comment on above: Performed By: #### 1 988-5 #### SANDRO Jain ([id number]) [facility] ([facility]) [address] [place] [address] 03423 Oxygen (Bld) [Partial pressure] 163 mm Hg High 85-95 [facility] Comment on above: Performed By: #### 1 988-5 #### SANDRO Jain ([id number]) [facility] ([facility]) [address] [place] [address] 46790 Oxyhemoglobin (BldA) [Mass fraction] 97.5 % Normal 94.0-98.0 [facility] Comment on above: Performed By: #### 1 988-5 #### SANDRO Jain ([id number]) [facility] ([facility]) [address] [place] [address] 46969 pH (Bld) 7.43 [pH] High 7.38-7.42 [facility] Comment on above: Performed By: #### 1 988-5 #### SANDRO Jain ([id number]) [facility] ([facility]) [address] [place] [address] 84786 Potassium (BldA) [Moles/Vol] 4.5 mmol/L Normal 3.5-5.3 [facility] Comment on above: Performed By: #### 1 988-5 #### SANDRO Jain ([id number]) [facility] ([facility]) [address] [place] [address] 85574 Sodium (BldA) [Moles/Vol] 134 mmol/L Low 136-145 [facility] Comment on above: Performed By: #### 1 988-5 #### SANDRO Jain ([id number]) [facility] ([facility]) [address] [place] [address] 76053 Anion gap 4 (BldA) [Moles/Vol] 8 Low [facility] Base excess Calc (Bld) [Moles/Vol] -1.5000 mmol/L -2.0 - 3.0 mmol/L [facility] Calcium.ionized (BldA) [Moles/Vol] 1.12 mmol/L 1.10 - 1.33 mmol/L [facility] Chloride (BldA) [Moles/Vol] 107 mmol/L 98 - 107 mmol/L [facility] CO2 (Bld) [Partial pressure] 41 mm[Hg] [facility] Glucose [Mass/Vol] 140 mg/dL High 74 - 99 mg/dL [facility] HCO3 (Bld) [Moles/Vol] 23.7 mmol/L 22.0 - 26.0 mmol/L [facility] Hematocrit Est (Bld) [Volume fraction] 33.0 % Low 36.0 - 46.0 % [facility] Inhaled oxygen concentration 100 % [facility] Lactate (BldA) [Moles/Vol] 2.1 mmol/L High 0.4 - 2.0 mmol/L [facility] Oxygen (Bld) [Partial pressure] 97 mm[Hg] High [facility] pH (Bld) 7.37 [pH] Low 7.38 - 7.42 pH [facility] Potassium (BldA) [Moles/Vol] 3.7 mmol/L 3.5 - 5.3 mmol/L [facility] Sodium (BldA) [Moles/Vol] 135 mmol/L Low 136 - 145 mmol/L [facility] Anion gap 4 (BldA) [Moles/Vol] 8 mmo/L Low 10-25 [facility] Comment on above: Performed By: #### 1 988-5 #### SANDRO Jain ([id number]) [facility] ([facility]) [address] [place] [address] 83974 Base excess Calc (Bld) [Moles/Vol] -1.5000 mmol/L Normal -2.0-3.0 [facility] Comment on above: Performed By: #### 1 988-5 #### SANDRO Jain ([id number]) [facility] ([facility]) [address] [place] [address] 23062 Calcium.ionized (BldA) [Moles/Vol] 1.12 mmol/L Normal 1.10-1.33 [facility] Comment on above: Performed By: #### 1 988-5 #### SANDRO Jain ([id number]) [facility] ([facility]) [address] [place] [address] 51536 Chloride (BldA) [Moles/Vol] 107 mmol/L Normal 98-107 [facility] Comment on above: Performed By: #### 1 988-5 #### SANDRO Jain ([id number]) [facility] ([facility]) [address] [place] [address] 00296 CO2 (Bld) [Partial pressure] 41 mm Hg Normal 38-42 [facility] Comment on above: Performed By: #### 1 988-5 #### SANDRO Jain ([id number]) [facility] ([facility]) [id number] [place] [address] 01020 Glucose [Mass/Vol] 140 mg/dL High 74-99 [facility] Comment on above: Performed By: #### 1 988-5 #### SANDRO Jain ([id number]) [facility] ([facility]) [address] [place] [address] 39324 HCO3 (Bld) [Moles/Vol] 23.7 mmol/L Normal 22.0-26.0 [facility] Comment on above: Performed By: #### 1 988-5 #### SANDRO Jain ([id number]) [facility] ([facility]) [address] [place] [address] 93395 Hematocrit Est (Bld) [Volume fraction] 33.0 % Low 36.0-46.0 [facility] Comment on above: Performed By: #### 1 988-5 #### SANDRO Jain ([id number]) [facility] ([facility]) [id number] [place] [address] 19620 Inhaled oxygen concentration 100 % Normal [facility] Comment on above: Performed By: #### 1 988-5 #### SANDRO Jain ([id number]) [facility] ([facility]) [id number] [place] [address] 26132 Lactate (BldA) [Moles/Vol] 2.1 mmol/L High 0.4-2.0 [facility] Comment on above: Performed By: #### 1 988-5 #### SANDRO Jain ([id number]) [facility] ([facility]) [id number] [place] [address] 92212 Oxygen (Bld) [Partial pressure] 97 mm Hg High 85-95 [facility] Comment on above: Performed By: #### 1 988-5 #### SANDRO Jain ([id number]) [facility] ([facility]) [address] [place] [address] 01183 pH (Bld) 7.37 [pH] Low 7.38-7.42 [facility] Comment on above: Performed By: #### 1 988-5 #### SANDRO Jain ([id number]) [facility] ([facility]) [address] [place] [address] 64709 Potassium (BldA) [Moles/Vol] 3.7 mmol/L Normal 3.5-5.3 [facility] Comment on above: Performed By: #### 1 988-5 #### SANDRO Jain ([id number]) [facility] ([facility]) [address] [place] [address] 50428 Sodium (BldA) [Moles/Vol] 135 mmol/L Low 136-145 [facility] Comment on above: Performed By: #### 1 988-5 #### SANDRO Jain ([id number]) [facility] ([facility]) [address] [place] [address] 42505 Anion gap 4 (BldA) [Moles/Vol] 9 Low [place] [facility] excess Calc (Bld) [Moles/Vol] -2.0000 mmol/L -2.0 - 3.0 mmol/L [facility] Calcium.ionized (BldA) [Moles/Vol] 1.17 mmol/L 1.10 - 1.33 mmol/L [facility] Chloride (BldA) [Moles/Vol] 106 mmol/L 98 - 107 mmol/L [facility] CO2 (Bld) [Partial pressure] 44 mm[Hg] High [facility] Glucose [Mass/Vol] 157 mg/dL High 74 - 99 mg/dL [facility] HCO3 (Bld) [Moles/Vol] 23.7 mmol/L 22.0 - 26.0 mmol/L [facility] Hematocrit Est (Bld) [Volume fraction] 26.0 % Low 36.0 - 46.0 % [facility] Inhaled oxygen concentration 100 % [facility] Lactate (BldA) [Moles/Vol] 2.1 mmol/L High 0.4 - 2.0 mmol/L [facility] Oxygen (Bld) [Partial pressure] 221 mm[Hg] High [facility] pH (Bld) 7.34 [pH] Low 7.38 - 7.42 pH [facility] Potassium (BldA) [Moles/Vol] 3.8 mmol/L 3.5 - 5.3 mmol/L [facility] Sodium (BldA) [Moles/Vol] 135 mmol/L Low 136 - 145 mmol/L [facility] Anion gap 4 (BldA) [Moles/Vol] 9 mmo/L Low 10-25 [facility] Comment on above: Performed By: #### 3 4529-8 #### SANDRO Jain ([id number]) [facility] ([facility]) [address] [place] [address] 05035 Base excess Calc (Bld) [Moles/Vol] -2.0000 mmol/L Normal -2.0-3.0 [facility] Comment on above: Performed By: #### 3 4529-8 #### SANDRO Jain ([id number]) [facility] ([facility]) [address] [place] [address] 83972 Calcium.ionized (BldA) [Moles/Vol] 1.17 mmol/L Normal 1.10-1.33 [facility] Comment on above: Performed By: #### 3 4529-8 #### SANDRO Jain ([id number]) [facility] ([facility]) [address] [place] [address] 33122 Chloride (BldA) [Moles/Vol] 106 mmol/L Normal 98-107 [facility] Comment on above: Performed By: #### 3 4529-8 #### SANDRO Jain ([id number]) [facility] ([facility]) [address] [place] [address] CO2 (Bld) [Partial pressure] 44 mm Hg High 38-42 [facility] Comment on above: Performed By: #### 3 4529-8 #### SANDRO Jain ([id number]) [facility] ([facility]) [id number] [place] [address] 76106 Glucose [Mass/Vol] 157 mg/dL High 74-99 [facility] Comment on above: Performed By: #### 3 4529-8 #### SANDRO Jain ([id number]) [facility] ([facility]) [address] [place] [address] 91176 HCO3 (Bld) [Moles/Vol] 23.7 mmol/L Normal 22.0-26.0 [facility] Comment on above: Performed By: #### 3 4529-8 #### SANDRO Jain ([id number]) [facility] ([facility]) [address] [place] [address] 90762 Hematocrit Est (Bld) [Volume fraction] 26.0 % Low 36.0-46.0 [facility] Comment on above: Performed By: #### 3 4529-8 #### SANDRO Jain ([id number]) [facility] ([facility]) [address] [place] [address] 37260 Inhaled oxygen concentration 100 % Normal [facility] Comment on above: Performed By: #### 3 4529-8 #### SANDRO Jain ([id number]) [facility] ([facility]) [address] [place] [address] 65186 Lactate (BldA) [Moles/Vol] 2.1 mmol/L High 0.4-2.0 [facility] Comment on above: Performed By: #### 3 4529-8 #### SANDRO Jain ([id number]) [facility] ([facility]) [id number] [place] [address] 54709 Oxygen (Bld) [Partial pressure] 221 mm Hg High 85-95 [facility] Comment on above: Performed By: #### 3 4529-8 #### SANDRO Jain ([id number]) [facility] ([facility]) [address] [place] [address] 32340 pH (Bld) 7.34 [pH] Low 7.38-7.42 [facility] Comment on above: Performed By: #### 3 4529-8 #### SANDRO Jain ([id number]) [facility] ([facility]) [address] [place] [address] 24198 Potassium (BldA) [Moles/Vol] 3.8 mmol/L Normal 3.5-5.3 [facility] Comment on above: Performed By: #### 3 4529-8 #### SANDRO Jain ([id number]) [facility] ([facility]) [address] [place] [address] 07542 Sodium (BldA) [Moles/Vol] 135 mmol/L Low 136-145 [facility] Comment on above: Performed By: #### 3 4529-8 #### SANDRO Jain ([id number]) [facility] ([facility]) [address] [place] [address] 96102 Anion gap 4 (BldA) [Moles/Vol] 9 Low [facility] Base excess Calc (Bld) [Moles/Vol] -0.2000 mmol/L -2.0 - 3.0 mmol/L [facility] Calcium.ionized (BldA) [Moles/Vol] 0.99 mmol/L Low 1.10 - 1.33 mmol/L [facility] Chloride (BldA) [Moles/Vol] 105 mmol/L 98 - 107 mmol/L [facility] CO2 (Bld) [Partial pressure] 48 mm[Hg] High [facility] Glucose [Mass/Vol] 181 mg/dL High 74 - 99 mg/dL [facility] HCO3 (Bld) [Moles/Vol] 25.9 mmol/L 22.0 - 26.0 mmol/L [facility] Hematocrit Est (Bld) [Volume fraction] 32.0 % Low 36.0 - 46.0 % [facility] Inhaled oxygen concentration 80 % [facility] Lactate (BldA) [Moles/Vol] 1.2 mmol/L 0.4 - 2.0 mmol/L [facility] Oxygen (Bld) [Partial pressure] 270 mm[Hg] High [facility] pH (Bld) 7.34 [pH] Low 7.38 - 7.42 pH [facility] Potassium (BldA) [Moles/Vol] 4.2 mmol/L 3.5 - 5.3 mmol/L [facility] Sodium (BldA) [Moles/Vol] 136 mmol/L 136 - 145 mmol/L [facility] Anion gap 4 (BldA) [Moles/Vol] 9 mmo/L Low 10-25 [facility] Comment on above: Performed By: #### 3 4529-8 #### SANDRO Jain ([id number]) [facility] ([facility]) [address] [place] [address] 22133 Base excess Calc (Bld) [Moles/Vol] -0.2000 mmol/L Normal -2.0-3.0 [facility] Comment on above: Performed By: #### 3 4529-8 #### SANDRO Jain ([id number]) [facility] ([facility]) [address] [place] [address] 96175 Calcium.ionized (BldA) [Moles/Vol] 0.99 mmol/L Low 1.10-1.33 [facility] Comment on above: Performed By: #### 3 4529-8 #### SANDRO Jain ([id number]) [facility] ([facility]) [address] [place] [address] 36727 Chloride (BldA) [Moles/Vol] 105 mmol/L Normal 98-107 [facility] Comment on above: Performed By: #### 3 4529-8 #### SANDRO Jain ([id number]) [facility] ([facility]) [address] [place] [address] 37304 CO2 (Bld) [Partial pressure] 48 mm Hg High 38-42 [facility] Comment on above: Performed By: #### 3 4529-8 #### SANDRO Jain ([id number]) [facility] ([facility]) [address] [place] [address] 87903 Glucose [Mass/Vol] 181 mg/dL High 74-99 [facility] Comment on above: Performed By: #### 3 4529-8 #### SANDRO Jain ([id number]) [facility] ([facility]) [address] [place] [address] 67185 HCO3 (Bld) [Moles/Vol] 25.9 mmol/L Normal 22.0-26.0 [facility] Comment on above: Performed By: #### 3 4529-8 #### SANDRO Jain ([id number]) [facility] ([facility]) [address] [place] [address] 65207 Hematocrit Est (Bld) [Volume fraction] 32.0 % Low 36.0-46.0 [facility] Comment on above: Performed By: #### 3 4529-8 #### SANDRO Jain ([id number]) [facility] ([facility]) [address] [place] [address] 46711 Inhaled oxygen concentration 80 % Normal [facility] Comment on above: Performed By: #### 3 4529-8 #### SANDRO Jain ([id number]) [facility] ([facility]) [address] [place] [address] 30217 Lactate (BldA) [Moles/Vol] 1.2 mmol/L Normal 0.4-2.0 [facility] Comment on above: Performed By: #### 3 4529-8 #### SANDRO Jain ([id number]) [facility] ([facility]) [address] [place] [address] 36268 Oxygen (Bld) [Partial pressure] 270 mm Hg High 85-95 [facility] Comment on above: Performed By: #### 3 4529-8 #### SANDRO Jain ([id number]) [facility] ([facility]) [address] [place] [address], [place] [address] pH (Bld) 7.34 [pH] Low 7.38-7.42 [facility] Comment on above: Performed By: #### 3 4529-8 #### SANDRO Jain ([id number]) [facility] ([facility]) [address] [place] [address] Potassium (BldA) [Moles/Vol] 4.2 mmol/L Normal 3.5-5.3 [facility] Comment on above: Performed By: #### 3 4529-8 #### SANDRO Jain ([id number]) [facility] ([facility]) [address] [place] [address] Sodium (BldA) [Moles/Vol] 136 mmol/L Normal 136-145 [facility] Comment on above: Performed By: #### 3 4529-8 #### SANDRO Jain ([id number]) [facility] ([facility]) [address] [place] [address] 78255 Anion gap 4 (BldA) [Moles/Vol] 8 Low [facility] Base excess Calc (Bld) [Moles/Vol] 1.0 mmol/L -2.0 - 3.0 mmol/L [facility] Calcium.ionized (BldA) [Moles/Vol] 0.97 mmol/L Low 1.10 - 1.33 mmol/L [facility] Chloride (BldA) [Moles/Vol] 105 mmol/L 98 - 107 mmol/L [facility] CO2 (Bld) [Partial pressure] 42 mm[Hg] [facility] Glucose [Mass/Vol] 197 mg/dL High 74 - 99 mg/dL [facility] HCO3 (Bld) [Moles/Vol] 26.0 mmol/L 22.0 - 26.0 mmol/L [facility] Hematocrit Est (Bld) [Volume fraction] 32.0 % Low 36.0 - 46.0 % [facility] Inhaled oxygen concentration 80 % [facility] Lactate (BldA) [Moles/Vol] 1.1 mmol/L 0.4 - 2.0 mmol/L [facility] Oxygen (Bld) [Partial pressure] 324 mm[Hg] High [facility] pH (Bld) 7.40 [pH] 7.38 - 7.42 pH [facility] Potassium (BldA) [Moles/Vol] 4.7 mmol/L 3.5 - 5.3 mmol/L [facility] Sodium (BldA) [Moles/Vol] 134 mmol/L Low 136 - 145 mmol/L [facility] Anion gap 4 (BldA) [Moles/Vol] 8 mmo/L Low 10-25 [facility] Comment on above: Performed By: #### 3 4529-8 #### SANDRO Jain ([id number]) [facility] ([facility]) [address] [place] [address] 35156 Base excess Calc (Bld) [Moles/Vol] 1.0 mmol/L Normal -2.0-3.0 [facility] Comment on above: Performed By: #### 3 4529-8 #### SANDRO Jain ([id number]) [facility] ([facility]) [address] [place] [address] 36229 Calcium.ionized (BldA) [Moles/Vol] 0.97 mmol/L Low 1.10-1.33 [facility] Comment on above: Performed By: #### 3 4529-8 #### SANDRO Jain ([id number]) [facility] ([facility]) [address] [place] [address] 14795 Chloride (BldA) [Moles/Vol] 105 mmol/L Normal 98-107 [facility] Comment on above: Performed By: #### 3 4529-8 #### SANDRO Jain ([id number]) [facility] ([facility]) [address] [place] [address] 89670 CO2 (Bld) [Partial pressure] 42 mm Hg Normal 38-42 [facility] Comment on above: Performed By: #### 3 4529-8 #### SANDRO Jain ([id number]) [facility] ([facility]) [address] [place] [address] 02011 Glucose [Mass/Vol] 197 mg/dL High 74-99 [facility] Comment on above: Performed By: #### 3 4529-8 #### SANDRO Jain ([id number]) [facility] ([facility]) [id number] [place] [address] 40930 HCO3 (Bld) [Moles/Vol] 26.0 mmol/L Normal 22.0-26.0 [facility] Comment on above: Performed By: #### 3 4529-8 #### SANDRO Jani ([id number]) [facility] ([facility]) [address] [place] [address] 23482 Hematocrit Est (Bld) [Volume fraction] 32.0 % Low 36.0-46.0 [facility] Comment on above: Performed By: #### 3 4529-8 #### SANDRO Jain ([id number]) [facility] ([facility]) [address] [place] [address] 76741 Inhaled oxygen concentration 80 % Normal [facility] Comment on above: Performed By: #### 3 4529-8 #### SANDRO Jain ([id number]) [facility] ([facility]) [address] [place] [address] 32313 Lactate (BldA) [Moles/Vol] 1.1 mmol/L Normal 0.4-2.0 [facility] Comment on above: Performed By: #### 3 4529-8 #### SANDRO Jain ([id number]) [facility] ([facility]) [address] [place] [address] 67312 Oxygen (Bld) [Partial pressure] 324 mm Hg High 85-95 [facility] Comment on above: Performed By: #### 3 4529-8 #### SANDRO Jain ([id number]) [facility] ([facility]) [address] [place] [address] 70756 pH (Bld) 7.40 [pH] Normal 7.38-7.42 [facility] Comment on above: Performed By: #### 3 4529-8 #### SANDRO Jain ([id number]) [facility] ([facility]) [address] [place] [address] Potassium (BldA) [Moles/Vol] 4.7 mmol/L Normal 3.5-5.3 [facility] Comment on above: Performed By: #### 3 4529-8 #### SANDRO Jain ([id number]) [facility] ([facility]) [address] [place] [address] Sodium (BldA) [Moles/Vol] 134 mmol/L Low 136-145 [facility] Comment on above: Performed By: #### 3 4529-8 #### SANDRO Jain ([id number]) [facility] ([facility]) [address] [place] [address] Anion gap 4 (BldA) [Moles/Vol] 12 [facility] Base excess Calc (Bld) [Moles/Vol] -0.4000 mmol/L -2.0 - 3.0 mmol/L [facility] Calcium.ionized (BldA) [Moles/Vol] 0.91 mmol/L Low 1.10 - 1.33 mmol/L [facility] Chloride (BldA) [Moles/Vol] 104 mmol/L 98 - 107 mmol/L [facility] CO2 (Bld) [Partial pressure] 38 mm[Hg] [facility] Glucose [Mass/Vol] 109 mg/dL High 74 - 99 mg/dL [facility] HCO3 (Bld) [Moles/Vol] 24.1 mmol/L 22.0 - 26.0 mmol/L [facility] Hematocrit Est (Bld) [Volume fraction] 34.0 % Low 36.0 - 46.0 % [facility] Inhaled oxygen concentration 80 % [facility] Lactate (BldA) [Moles/Vol] 0.9 mmol/L 0.4 - 2.0 mmol/L [facility] Oxygen (Bld) [Partial pressure] 328 mm[Hg] High [facility] pH (Bld) 7.41 [pH] 7.38 - 7.42 pH [facility] Potassium (BldA) [Moles/Vol] 3.8 mmol/L 3.5 - 5.3 mmol/L [facility] Sodium (BldA) [Moles/Vol] 136 mmol/L 136 - 145 mmol/L [facility] Anion gap 4 (BldA) [Moles/Vol] 12 mmo/L Normal 10-25 [facility] Comment on above: Performed By: #### 5 8077-9 #### SANDRO Jain ([id number]) [facility] ([facility]) [address] [place] [address] 43559 Base excess Calc (Bld) [Moles/Vol] -0.4000 mmol/L Normal -2.0-3.0 [facility] Comment on above: Performed By: #### 5 8077-9 #### SANDRO Jain ([id number]) [facility] ([facility]) [address] [place], [place] [id number] Calcium.ionized (BldA) [Moles/Vol] 0.91 mmol/L Low 1.10-1.33 [facility] Comment on above: Performed By: #### 5 8077-9 #### SANDRO Jain ([id number]) [facility] ([facility]) [address] [place] [address] 63493 Chloride (BldA) [Moles/Vol] 104 mmol/L Normal 98-107 [facility] Comment on above: Performed By: #### 5 8077-9 #### SANDRO Jain ([id number]) [facility] ([facility]) [address] [place] [address] 21234 CO2 (Bld) [Partial pressure] 38 mm Hg Normal 38-42 [facility] Comment on above: Performed By: #### 5 8077-9 #### SANDRO Jain ([id number]) [facility] ([facility]) [address] [place] [address] 15918 Glucose [Mass/Vol] 109 mg/dL High 74-99 [facility] Comment on above: Performed By: #### 5 8077-9 #### SANDRO Jain ([id number]) [facility] ([facility]) [address] [place] [address] HCO3 (Bld) [Moles/Vol] 24.1 mmol/L Normal 22.0-26.0 [facility] Comment on above: Performed By: #### 5 8077-9 #### SANDRO Jain ([id number]) [facility] ([facility]) [address] [place] [address] 34158 Hematocrit Est (Bld) [Volume fraction] 34.0 % Low 36.0-46.0 [facility] Comment on above: Performed By: #### 5 8077-9 #### SANDRO Jain ([id number]) [facility] ([facility]) [address] [place] [address] 18104 Inhaled oxygen concentration 80 % Normal [facility] Comment on above: Performed By: #### 5 8077-9 #### SANDRO Jain ([id number]) [facility] ([facility]) [address] [place] [address] 85237 Lactate (BldA) [Moles/Vol] 0.9 mmol/L Normal 0.4-2.0 [facility] Comment on above: Performed By: #### 5 8077-9 #### SANDRO Jain ([id number]) [facility] ([facility]) [address] [place] [address] 27896 Oxygen (Bld) [Partial pressure] 328 mm Hg High 85-95 [facility] Comment on above: Performed By: #### 5 8077-9 #### SANDRO Jain ([id number]) [facility] ([facility]) [address] [place] [address] 10294 pH (Bld) 7.41 [pH] Normal 7.38-7.42 [facility] Comment on above: Performed By: #### 5 8077-9 #### SANDRO Jain ([id number]) [facility] ([facility]) [address] [place] [address] 13205 Potassium (BldA) [Moles/Vol] 3.8 mmol/L Normal 3.5-5.3 [facility] Comment on above: Performed By: #### 5 8077-9 #### SANDRO Jain ([id number]) [facility] ([facility]) [address] [place] [address] Sodium (BldA) [Moles/Vol] 136 mmol/L Normal 136-145 [facility] Comment on above: Performed By: #### 5 8077-9 #### SANDRO Jain ([id number]) [facility] ([facility]) [address] [place] [address] Anion gap 4 (BldA) [Moles/Vol] 7 Low [facility] Base excess Calc (Bld) [Moles/Vol] 1.9 mmol/L -2.0 - 3.0 mmol/L [facility] Calcium.ionized (BldA) [Moles/Vol] 1.07 mmol/L Low 1.10 - 1.33 mmol/L [facility] Chloride (BldA) [Moles/Vol] 106 mmol/L 98 - 107 mmol/L [facility] CO2 (Bld) [Partial pressure] 36 mm[Hg] Low [facility] Glucose [Mass/Vol] 122 mg/dL High 74 - 99 mg/dL [facility] HCO3 (Bld) [Moles/Vol] 25.6 mmol/L 22.0 - 26.0 mmol/L [facility] Hematocrit Est (Bld) [Volume fraction] 39.0 % 36.0 - 46.0 % [facility] Inhaled oxygen concentration 80 % [facility] Lactate (BldA) [Moles/Vol] 0.9 mmol/L 0.4 - 2.0 mmol/L [facility] Oxygen (Bld) [Partial pressure] 233 mm[Hg] High [facility] pH (Bld) 7.46 [pH] High 7.38 - 7.42 pH [facility] Potassium (BldA) [Moles/Vol] 3.8 mmol/L 3.5 - 5.3 mmol/L [facility] Sodium (BldA) [Moles/Vol] 135 mmol/L Low 136 - 145 mmol/L [facility] Anion gap 4 (BldA) [Moles/Vol] 7 mmo/L Low 10-25 [facility] Comment on above: Performed By: #### 5 8077-9 #### SANDRO Jain ([id number]) [facility] ([facility]) [id number] [place] [address] 02492 Base excess Calc (Bld) [Moles/Vol] 1.9 mmol/L Normal -2.0-3.0 [facility] Comment on above: Performed By: #### 5 8077-9 #### SANDRO Jain ([id number]) [facility] ([facility]) [address] [place] [address] 80328 Calcium.ionized (BldA) [Moles/Vol] 1.07 mmol/L Low 1.10-1.33 [facility] Comment on above: Performed By: #### 5 8077-9 #### SANDRO Jain ([id number]) [facility] ([facility]) [address] [place] [address] 80818 Chloride (BldA) [Moles/Vol] 106 mmol/L Normal 98-107 [facility] Comment on above: Performed By: #### 5 8077-9 #### SANDRO Jain ([id number]) [facility] ([facility]) [address] [place] [address] 80627 CO2 (Bld) [Partial pressure] 36 mm Hg Low 38-42 [facility] Comment on above: Performed By: #### 5 8077-9 #### SANDRO Jain ([id number]) [facility] ([facility]) [address] [place] [address] 49662 Glucose [Mass/Vol] 122 mg/dL High 74-99 [facility] Comment on above: Performed By: #### 5 8077-9 #### SANDRO Jain ([id number]) [facility] ([facility]) [id number] [place] [address] 59048 HCO3 (Bld) [Moles/Vol] 25.6 mmol/L Normal 22.0-26.0 U [facility] Comment on above: Performed By: #### 5 8077-9 #### SANDRO Jain ([id number]) [facility] ([facility]) [address] [place] [address] 30449 Hematocrit Est (Bld) [Volume fraction] 39.0 % Normal 36.0-46.0 [facility] Comment on above: Performed By: #### 5 8077-9 #### SANDRO Jain ([id number]) [facility] ([facility]) [address] [place] [address] 81171 Inhaled oxygen concentration 80 % Normal [facility] Comment on above: Performed By: #### 5 8077-9 #### SANDRO Jain ([id number]) [facility] ([facility]) [address] [place] [address] 75684 Lactate (BldA) [Moles/Vol] 0.9 mmol/L Normal 0.4-2.0 [facility] Comment on above: Performed By: #### 5 8077-9 #### SANDRO Jain ([id number]) [facility] ([facility]) [address] [place] [address] 84771 Oxygen (Bld) [Partial pressure] 233 mm Hg High 85-95 [facility] Comment on above: Performed By: #### 5 8077-9 #### SANDRO Jain ([id number]) [facility] ([facility]) [address] [place] [address] 11301 pH (Bld) 7.46 [pH] High 7.38-7.42 [facility] Comment on above: Performed By: #### 5 8077-9 #### SANDRO Jain ([id number]) [facility] ([facility]) [address] [place] [address] 77740 Potassium (BldA) [Moles/Vol] 3.8 mmol/L Normal 3.5-5.3 [facility] Comment on above: Performed By: #### 5 8077-9 #### SANDRO Jain ([id number]) [facility] ([facility]) [address] [place] [address] Sodium (BldA) [Moles/Vol] 135 mmol/L Low 136-145 [facility] Comment on above: Performed By: #### 5 8077-9 #### SANDRO Jain ([id number]) [facility] ([facility]) [address] [place] [address] Anion gap 4 (BldA) [Moles/Vol] 6 Low [facility] Base excess Calc (Bld) [Moles/Vol] 3.9 mmol/L High -2.0 - 3.0 mmol/L [facility] Calcium.ionized (BldA) [Moles/Vol] 1.13 mmol/L 1.10 - 1.33 mmol/L [facility] Chloride (BldA) [Moles/Vol] 104 mmol/L 98 - 107 mmol/L [facility] CO2 (Bld) [Partial pressure] 42 mm[Hg] [facility] Glucose [Mass/Vol] 104 mg/dL High 74 - 99 mg/dL [facility] HCO3 (Bld) [Moles/Vol] 28.5 mmol/L High 22.0 - 26.0 mmol/L [facility] Hematocrit Est (Bld) [Volume fraction] 40.0 % 36.0 - 46.0 % [facility] Inhaled oxygen concentration 80 % [facility] Lactate (BldA) [Moles/Vol] 1.0 mmol/L 0.4 - 2.0 mmol/L [facility] Oxygen (Bld) [Partial pressure] 437 mm[Hg] High [facility] pH (Bld) 7.44 [pH] High 7.38 - 7.42 pH [facility] Potassium (BldA) [Moles/Vol] 3.7 mmol/L 3.5 - 5.3 mmol/L [facility] Sodium (BldA) [Moles/Vol] 135 mmol/L Low 136 - 145 mmol/L [facility] Anion gap 4 (BldA) [Moles/Vol] 6 mmo/L Low 10-25 [facility] Comment on above: Performed By: #### 9 3685-6 #### SANDRO Jain ([id number]) [facility] ([facility]) [address] [place] [address] Base excess Calc (Bld) [Moles/Vol] 3.9 mmol/L High -2.0-3.0 [facility] Comment on above: Performed By: #### 9 3685-6 #### SANDRO Jain ([id number]) [facility] ([facility]) [id number] [place] [address] Calcium.ionized (BldA) [Moles/Vol] 1.13 mmol/L Normal 1.10-1.33 [facility] Comment on above: Performed By: #### 9 3685-6 #### SANDRO Jain ([id number]) [facility] ([facility]) [address] [place] [address] 50694 Chloride (BldA) [Moles/Vol] 104 mmol/L Normal 98-107 [facility] Comment on above: Performed By: #### 9 3685-6 #### SANDRO Jain ([id number]) [facility] ([facility]) [address] [place] [address] 19445 CO2 (Bld) [Partial pressure] 42 mm Hg Normal 38-42 [facility] Comment on above: Performed By: #### 9 3685-6 #### SANDRO Jain ([id number]) [facility] ([facility]) [address] [place] [address] 49949 Glucose [Mass/Vol] 104 mg/dL High 74-99 [facility] Comment on above: Performed By: #### 9 3685-6 #### SANDRO Jain ([id number]) [facility] ([facility]) [address] [place] [address] 85663 HCO3 (Bld) [Moles/Vol] 28.5 mmol/L High 22.0-26.0 [facility] Comment on above: Performed By: #### 9 3685-6 #### SANDRO Jain ([id number]) [facility] ([facility]) [address] [place] [address]19 Hematocrit Est (Bld) [Volume fraction] 40.0 % Normal 36.0-46.0 [facility] Comment on above: Performed By: #### 9 3685-6 #### SANDRO Jain ([id number]) [facility] ([facility]) [address] [place] [address] 68622 Inhaled oxygen concentration 80 % Normal [facility] Comment on above: Performed By: #### 9 3685-6 #### SANDRO Jain ([id number]) [facility] ([facility]) [address] [place] [address] 58181 Lactate (BldA) [Moles/Vol] 1.0 mmol/L Normal 0.4-2.0 [facility] Comment on above: Performed By: #### 9 3685-6 #### SANDRO Jain ([id number]) [facility] ([facility]) [address] [place] [address] 40399 Oxygen (Bld) [Partial pressure] 437 mm Hg High 85-95 [facility] Comment on above: Performed By: #### 9 5113-6 #### SANDRO Jain ([id number]) [facility] ([facility]) [address] [place] [address] 37274 pH (Bld) 7.44 [pH] High 7.38-7.42 [facility] Comment on above: Performed By: #### 9 9598-6 #### SANDRO Jain ([id number]) [facility] ([facility]) [address] [place] [address] 02339 Potassium (BldA) [Moles/Vol] 3.7 mmol/L Normal 3.5-5.3 [facility] Comment on above: Performed By: #### 9 7180-6 #### SANDRO Jain ([id number]) [facility] ([facility]) [address] [place] [address] 42570 Sodium (BldA) [Moles/Vol] 135 mmol/L Low 136-145 [facility] Comment on above: Performed By: #### 9 36856 #### SANDRO Jain ([id number]) [facility] ([facility]) [address] [place] [address] Gas panel (BldV)on 5 Anion gap 4 (BldV) [Moles/Vol] 8.0 mmol/L Low 10.0 - 25.0 mmol/L [facility] Base excess Calc (BldV) [Moles/Vol] 4.2 mmol/L High -2.0 - 3.0 mmol/L [facility] Calcium.ionized (BldV) [Moles/Vol] 0.95 mmol/L Low 1.10 - 1.33 mmol/L [facility] Chloride (BldV) [Moles/Vol] 104 mmol/L 98 - 107 mmol/L [facility] CO2 (BldV) [Partial pressure] 48 mm[Hg] [facility] Glucose [Mass/Vol] 197 mg/dL High 74 - 99 mg/dL [facility] HCO3 (Bld) [Moles/Vol] 29.7 mmol/L High 22.0 - 26.0 mmol/L [facility] Hematocrit Est (Bld) [Volume fraction] 30.0 % Low 36.0 - 46.0 % [facility] Hemoglobin (Bld) [Mass/Vol] 9.9 g/dL Low 12.0 - 16.0 g/dL [facility] Inhaled oxygen concentration 80 % [facility] Interpretation and review of laboratory results Abnormal [facility] Lactate (BldV) [Moles/Vol] 1.0 mmol/L 0.4 - 2.0 mmol/L [facility] Oxygen (BldV) [Partial pressure] 53 mm[Hg] High [facility] Oxygen saturation in Venous blood 86 % High 45 - 75 % [facility] Oxyhemoglobin (BldV) [Mass fraction] 84.5 % High 45.0 - 75.0 % [facility] pH (BldV) 7.40 [pH] 7.33 - 7.43 pH [facility] Potassium (BldV) [Moles/Vol] 4.6 mmol/L 3.5 - 5.3 mmol/L [facility] Sodium (BldV) [Moles/Vol] 137 mmol/L 136 - 145 mmol/L [facility] Anion gap 4 (BldV) [Moles/Vol] 8.0 mmol/L Low 10.0-25.0 [facility] Comment on above: Performed By: #### 5 8077-9 #### SANDRO Jain ([id number]) [facility] ([facility]) [address] [place] [address] 56377 Base excess Calc (BldV) [Moles/Vol] 4.2 mmol/L High -2.0-3.0 [facility] Comment on above: Performed By: #### 5 8077-9 #### SANDRO Jain ([id number]) [facility] ([facility]) [address] [place] [address] 58404 Calcium.ionized (BldV) [Moles/Vol] 0.95 mmol/L Low 1.10-1.33 [facility] Comment on above: Performed By: #### 5 8077-9 #### SANDRO Jain ([id number]) [facility] ([facility]) [address] [place] [address] 62135 Chloride (BldV) [Moles/Vol] 104 mmol/L Normal 98-107 [facility] Comment on above: Performed By: #### 5 8077-9 #### SANDRO Jain ([id number]) [facility] ([facility]) [address] [place] [address] 74034 CO2 (BldV) [Partial pressure] 48 mm Hg Normal 41-51 [facility] Comment on above: Performed By: #### 5 8077-9 #### SANDRO Jain ([id number]) [facility] ([facility]) [address] [place] [address] 59301 Glucose [Mass/Vol] 197 mg/dL High 74-99 [facility] Comment on above: Performed By: #### 5 8077-9 #### SANDRO Jain ([id number]) [facility] ([facility]) [address] [place] [address] HCO3 (Bld) [Moles/Vol] 29.7 mmol/L High 22.0-26.0 [facility] Comment on above: Performed By: #### 5 8077-9 #### SANDRO Jain ([id number]) [facility] ([facility]) [address] [place] [address] 28376 Hematocrit Est (Bld) [Volume fraction] 30.0 % Low 36.0-46.0 [facility] Comment on above: Performed By: #### 5 8077-9 #### SANDRO Jain ([id number]) [facility] ([facility]) [address] [place] [address] 45357 Hemoglobin (Bld) [Mass/Vol] 9.9 g/dL Low 12.0-16.0 [facility] Comment on above: Performed By: #### 5 8077-9 #### SANDRO Jain ([id number]) [facility] ([facility]) [address] [place] [address] 51711 Inhaled oxygen concentration 80 % Normal [facility] Comment on above: Performed By: #### 5 8077-9 #### SANDRO Jain ([id number]) [facility] ([facility]) [address] [place] [address] 08708 Lactate (BldV) [Moles/Vol] 1.0 mmol/L Normal 0.4-2.0 [facility] Comment on above: Performed By: #### 5 8077-9 #### SANDRO Jain (40652) [facility] ([facility]) [address] [place] [address] 07832 Oxygen (BldV) [Partial pressure] 53 mm Hg High 35-45 [facility] Comment on above: Performed By: #### 5 8077-9 #### SANDRO Jain ([id number]) [facility] ([facility]) [address] [place] [address] 11297 Oxygen saturation in Venous blood 86 % High 45-75 [facility] Comment on above: Performed By: #### 5 8077-9 #### SANDRO Jain ([id number]) [facility] ([facility]) [address] [place] [address] 45446 Oxyhemoglobin (BldV) [Mass fraction] 84.5 % High 45.0-75.0 [facility] Comment on above: Performed By: #### 5 8077-9 #### SANDRO Jain (14842) [facility] ([facility]) [address] [place] [address] 11629 pH (BldV) 7.40 [pH] Normal 7.33-7.43 [facility] Comment on above: Performed By: #### 5 8077-9 #### SANDRO Jain ([id number]) [facility] ([facility]) [address] [place] [address] 48911 Potassium (BldV) [Moles/Vol] 4.6 mmol/L Normal 3.5-5.3 [facility] Comment on above: Performed By: #### 5 8077-9 #### SANDRO Jain ([id number]) [facility] ([facility]) [address] [place] [address] 33199 Sodium (BldV) [Moles/Vol] 137 mmol/L Normal 136-145 [facility] Comment on above: Performed By: #### 5 8077-9 #### SANDRO Jain ([id number]) [facility] ([facility]) [address] [place] [address] 00642 Glucose Test strip manual (B ld) [Mass/Vol]on 01-09-2025 Glucose [Mass/Vol] 187 mg/dL High 74 - 99 mg/dL [facility] Interpretation and review of laboratory results Abnormal [facility] Glucose [Mass/Vol] 187 mg/dL High 74-99 [facility] Comment on above: Performed By: #### 2 4323-8 #### SANDRO Jain ([id number]) [facility] ([facility]) [address] [place] [address] 88310 Glucose [Mass/Vol] 227 mg/dL High 74 - 99 mg/dL [facility] Interpretation and review of laboratory results Abnormal [facility] Glucose [Mass/Vol] 227 mg/dL High 74-99 [facility] Comment on above: Performed By: #### 2 4323-8 #### SANDRO Jain ([id number]) [facility] ([facility]) [address] [place] [address] HCG ( test) Ql (U)o n 01-09-2025 Interpretation and review of laboratory results Normal [facility] Work Phone: Preg Test, Ur Negative Negative [facility] Work Phone: [facility] Work Phone: Laboratory - Chemistry and C hemistry - challengeon 01-09-2025 Oxyhemoglobin (BldA) [Mass fraction] 96.7 % 94.0 - 98.0 % [facility] Oxyhemoglobin (BldA) [Mass fraction] 98.5 % High 94.0 - 98.0 % [facility] Oxyhemoglobin (BldA) [Mass fraction] 97.8 % 94.0 - 98.0 % [facility] Oxyhemoglobin (BldA) [Mass fraction] 98.8 % High 94.0 - 98.0 % [facility] Oxyhemoglobin (BldA) [Mass fraction] 98.2 % High 94.0 - 98.0 % [facility] Oxyhemoglobin (BldA) [Mass fraction] 98.1 % High 94.0 - 98.0 % [facility] Oxyhemoglobin (BldA) [Mass fraction] 98.1 % High 94.0 - 98.0 % [facility] Laboratory - Hematology and Cell countson 01-09-2025 Hemoglobin (Bld) [Mass/Vol] 11.0 g/dL Low 12.0 - 16.0 g/dL [facility] Hemoglobin (Bld) [Mass/Vol] 8.6 g/dL Low 12.0 - 16.0 g/dL [facility] Hemoglobin (Bld) [Mass/Vol] 10.7 g/dL Low 12.0 - 16.0 g/dL [facility] Hemoglobin (Bld) [Mass/Vol] 10.5 g/dL Low 12.0 - 16.0 g/dL [facility] Hemoglobin (Bld) [Mass/Vol] 11.4 g/dL Low 12.0 - 16.0 g/dL [facility] Hemoglobin (Bld) [Mass/Vol] 13.1 g/dL 12.0 - 16.0 g/dL [facility] Hemoglobin (Bld) [Mass/Vol] 13.3 g/dL 12.0 - 16.0 g/dL [facility] Magnesiumon 01-09-2025 Magnesium [Mass/Vol] 2.55 mg/dL High 1.60 - 2.40 mg/dL [facility] Magnesium [Mass/Vol] 2.55 mg/dL High 1.60-2.40 [facility] Comment on above: Order Comment: On ad giovani to ICU Performed By: #### 1 988-5 #### SANDRO Jain ([id number]) [facility] ([facility]) [address] [place] [address] No Panel Informationon 01-09 Interpretation and review of laboratory results Abnormal [facility] Interpretation and review of laboratory results Abnormal [facility] Interpretation and review of laboratory results Abnormal [facility] Interpretation and review of laboratory results Abnormal [facility] Interpretation and review of laboratory results Abnormal [facility] Interpretation and review of laboratory results Abnormal [facility] Interpretation and review of laboratory results Abnormal [facility] Interpretation and review of laboratory results Abnormal [facility] Interpretation and review of laboratory results Abnormal [facility] PT and aPTT panel Coag (PPP) on 01-09-2025 aPTT Coag (PPP) [Time] 30 s [facility] INR Coag (PPP) [Relative time] 1.4 {INR} High 0.9 - 1.1 [facility] PT Coag (PPP) [Time] 15.0 s High [facility] aPTT Coag (PPP) [Time] 30 s Normal 26-36 [facility] Comment on above: Order Comment: On ad giovani to ICUThe APTT is no longer used for monitoring Unfractionated Heparin Therapy. For monitoring Heparin Therapy, use the Heparin Assay. Performed By: #### 1 988-5 #### SANDRO Jain ([id number]) [facility] ([facility]) [address] [place] [address] 94038 INR Coag (PPP) [Relative time] 1.4 High 0.9-1.1 [facility] Comment on above: Order Comment: On ad giovani to ICUThe APTT is no longer used for monitoring Unfractionated Heparin Therapy. For monitoring Heparin Therapy, use the Heparin Assay. Performed By: #### 1 988-5 #### SANDRO Jain ([id number]) [facility] ([facility]) [address] [place] [address] 72089 PT Coag (PPP) [Time] 15.0 s High 9.8-12.4 [facility] Comment on above: Order Comment: On ad giovani to ICUThe APTT is no longer used for monitoring Unfractionated Heparin Therapy. For monitoring Heparin Therapy, use the Heparin Assay. Performed By: #### 1 988-5 #### SANDRO Jain ([id number]) [facility] ([facility]) [address] [place] [address] 53169 Renal function 2000 panelon 01-09-2025 Albumin BCP dye [Mass/Vol] 3.2 g/dL Low 3.4 - 5.0 g/dL [facility] Anion gap [Moles/Vol] 14 mmol/L 10 - 2 0 mmol/L [facility] Calcium [Mass/Vol] 8.3 mg/dL Low 8.6 - 10. 6 mg/dL [facility] Chloride [Moles/Vol] 109 mmol/L High 98 - 10 7 mmol/L [facility] CO2 [Moles/Vol] 22 mmol/L 21 - 32 mmol/L [facility] Creatinine [Mass/Vol] 0.74 mg/dL 0.50 - 1.05 mg/dL [facility] eGFR - PINF [facility] Glucose [Mass/Vol] 131 mg/dL High 74 - 99 mg/dL [facility] Phosphate [Mass/Vol] 2.8 mg/dL 2.5 - 4 .9 mg/dL [facility] Potassium [Moles/Vol] 4.5 mmol/L 3.5 - 5.3 mmol/L [facility] Sodium [Moles/Vol] 140 mmol/L 136 - 145 mmol/L [facility] Urea nitrogen [Mass/Vol] 9 mg/dL 6 - 23 mg/d L [facility] Albumin BCP dye [Mass/Vol] 3.2 g/dL Low 3.4-5.0 [facility] Comment on above: Order Comment: On ad giovani to ICU Performed By: #### 1 988-5 #### SANDRO Jain ([id number]) [facility] ([facility]) [address] [place] [address] 49378 Anion gap [Moles/Vol] 14 mmol/L Normal 10-20 [facility] Comment on above: Order Comment: On ad giovani to ICU Performed By: #### 1 988-5 #### SANDRO Jain ([id number]) [facility] ([facility]) [address] [place] [address] 47296 Calcium [Mass/Vol] 8.3 mg/dL Low 8.6-10.6 [facility] Comment on above: Order Comment: On ad giovani to ICU Performed By: #### 1 988-5 #### SANDRO Jain ([id number]) [facility] ([facility]) [address] [place] [address] 27959 Chloride [Moles/Vol] 109 mmol/L High 98-107 [facility] Comment on above: Order Comment: On ad giovani to ICU Performed By: #### 1 988-5 #### SANDRO Jain ([id number]) [facility] ([facility]) [address] [place] [address] 38420 CO2 [Moles/Vol] 22 mmol/L Normal 21-32 [facility] Comment on above: Order Comment: On ad giovani to ICU Performed By: #### 1 988-5 #### SANDRO Jain ([id number]) [facility] ([facility]) [address] [place] [address] Creatinine [Mass/Vol] 0.74 mg/dL Normal 0.50-1.05 [facility] Comment on above: Order Comment: On ad giovani to ICU Performed By: #### 1 988-5 #### SANDRO Jain ([id number]) [facility] ([facility]) [address] [place] [address] 12650 Glomerular filtration rate >90 Normal >60 [facility] Comment on above: Order Comment: On ad giovani to ICU Result Comment: Calc ulations of estimated GFR are performed using the 2020 CKD-EPI Study Refit equation without the race variable for the IDMS-Traceable creatinine methods. https://jasn.asnjournals.org/content/early/ASN.806 8659502 Performed By: #### 1 988-5 #### SANDRO Jain ([id number]) [facility] ([facility]) [address] [place] [address] 05322 Glucose [Mass/Vol] 131 mg/dL High 74-99 [facility] Comment on above: Order Comment: On ad giovani to ICU Performed By: #### 1 988-5 #### SANDRO Jain ([id number]) [facility] ([facility]) [address] [place] [address] 69957 Phosphate [Mass/Vol] 2.8 mg/dL Normal 2.5-4.9 [facility] Comment on above: Order Comment: On ad giovani to ICU Performed By: #### 1 988-5 #### SANDRO FELIX L ([id number]) [facility] ([facility]) [address] [place] [address] 45180 Potassium [Moles/Vol] 4.5 mmol/L Normal 3.5-5.3 [facility] Comment on above: Order Comment: On ad giovani to ICU Performed By: #### 1 988-5 #### SANDRO LARAER L ([id number]) [facility] ([facility]) [address] [place] [address] Sodium [Moles/Vol] 140 mmol/L Normal 136-145 [facility] Comment on above: Order Comment: On ad giovani to ICU Performed By: #### 1 988-5 #### SANDRO KISERMOTZER L ([id number]) [facility] ([facility]) [address] [place] [address] Urea nitrogen [Mass/Vol] 9 mg/dL Normal 6-23 [facility] Comment on above: Order Comment: On ad giovani to ICU Performed By: #### 1 988-5 #### SANDRO FELIX L ([id number]) [facility] ([facility]) [address] [place] [address] Surgical pathology studyon 0 01-09-2025 Surgical pathology study Pathology report.total SEE COMMENT Surgical Pathology Case: [id number] Authorizing Provider: Gordon Armstrong MD Collected: 01/09/2025 0930 Ordering Location: [facility] Received: 01/09/2025 1242 [facility] OR Pathologist: Fuad [place] MD Specimen: HEART [...] not identified. The specimen is sectioned and lead customer service representative sections are submitted in 2 cassettes. JSD Normal [facility] Comment on above: Order Comment: Pre-o p diagnosis:Mitral valve insufficiency, unspecified etiology [I34.0] TEG Clot Global Profile Unso licitedon 01-09-2025 ANGLE 70.0 deg 63.0 - 78.0 deg [facility] FLEV 272 mg/dL Low 278 - 581 mg/dL [facility] Interpretation and review of laboratory results Abnormal [facility] K (Clot Kinetics) 1.7 min 0.8 - 2.1 min [facility] MA ( Drea Amplitude) FF 15.0 mm 15.0 - 32.0 mm [facility] (Max Amplitude) K 57.0 mm 52.0 - 69.0 mm [facility] (Max Amplitude) RT 55.0 mm 52.0 - 70.0 mm [facility] R (Reaction Time) K 7.8 min 4.6 - 9. 1 min [facility] R (Reaction Time) KH 10.7 min High 4.3 - 8 .3 min [facility] Test Comment post protamine [facility] ANGLE 75.0 deg 63.0 - 78.0 deg [facility] FLEV 380 mg/dL 278 - 581 mg/dL [facility] Interpretation and review of laboratory results Abnormal [facility] K (Clot Kinetics) 1.2 min 0.8 - 2.1 min [facility] MA ( Drae Amplitude) FF 21.0 mm 15.0 - 32.0 mm [facility] MA (Max Amplitude) K 63.0 mm 52.0 - 69.0 mm [facility] (Max Amplitude) RT 65.0 mm 52.0 - 70.0 mm [facility] R (Reaction Time) K 4.4 min Low 4.6 - 9. 1 min [facility] R (Reaction Time) KH 5.3 min 4.3 - 8 .3 min [facility] Test Comment baseline [facility] THROMBOELASTOGRAPH CLOTTING GLOBAL PROFILE UNSOLICITEDon 01-09-2025 Clot angle.kaolin induced 70.0 deg Normal 63.0-78.0 [facility] Comment on above: Performed By: #### 1 988-5 #### SANDRO LARAER L ([id number]) [facility] ([facility]) [id number] [place] [address] 48602 Clot formation.kaolin induced 1.7 min Normal 0.8-2.1 [facility] Comment on above: Performed By: #### 1 988-5 #### SANDRO KISERMOTZER L ([id number]) [facility] ([facility]) [id number] [place] [address] 71420 Clot initiation.kaolin induced 7.8 min Normal 4.6-9.1 [facility] Comment on above: Performed By: #### 1 988-5 #### SANDRO KISERMOTZER L ([id number]) [facility] ([facility]) [address] [place] [address] 59303 Clot initiation.kaolin induced^post heparin neutralization 10.7 min High 4.3-8.3 [facility] Comment on above: Performed By: #### 1 988-5 #### SANDRO KISERMOTZER L ([id number]) [facility] ([facility]) [address] [place] [address] [address] Fibrinogen 272 mg/dL Low 278-581 [facility] Comment on above: Performed By: #### 1 988-5 #### SANDRO KISERMOTZER L ([id number]) [facility] ([facility]) [address] [place] [address] 30401 Maximum clot strength amplitude.kaolin induced 57.0 mm Normal 52.0-69.0 [facility] Comment on above: Performed By: #### 1 988-5 #### SANDRO KISERMOTZER L ([id number]) [facility] ([facility]) [address] [place] [address] 45970 Maximum clot strength amplitude.kaolin+tissue factor induced 55.0 mm Normal 52.0-70.0 [facility] Comment on above: Performed By: #### 1 988-5 #### SANDRO KISERMOTZER L ([id number]) [facility] ([facility]) [address] [place] [address] 75689 Maximum clot strength amplitude.tissue factor induced+platelet glycoprotein IIb-IIIa receptor inhibited 15.0 mm Normal 15.0-32.0 [facility] Comment on above: Performed By: #### 1 988-5 #### SANDRO Jain ([id number]) [facility] ([facility]) [address] [place] [address] TEST COMMENT post protamine Normal [facility] Comment on above: Performed By: #### 1 988-5 #### SANDRO Jain ([id number]) [facility] ([facility]) [address] [place] [address] Clot angle.kaolin induced 75.0 deg Normal 63.0-78.0 [facility] Comment on above: Performed By: #### 5 8077-9 #### SANDRO Jain ([id number]) [facility] ([facility]) [address] [place], [place] [address] Clot formation.kaolin induced 1.2 min Normal 0.8-2.1 [facility] Comment on above: Performed By: #### 5 8077-9 #### SANDRO Jain ([id number]) [facility] ([facility]) [address] [place], [place] [address] Clot initiation.kaolin induced 4.4 min Low 4.6-9.1 [facility] Comment on above: Performed By: #### 5 8077-9 #### SANDRO Jain ([id number]) [facility] ([facility]) [address] [place], [place] [address] Clot initiation.kaolin induced^post heparin neutralization 5.3 min Normal 4.3-8.3 [facility] Comment on above: Performed By: #### 5 8077-9 #### SANDRO Jain ([id number]) [facility] ([facility]) [address] [place], [place] [address] Fibrinogen 380 mg/dL Normal 278-581 [facility] Comment on above: Performed By: #### 5 8077-9 #### SANDRO Jain ([id number]) [facility] ([facility]) [address] [place] [address] Maximum clot strength amplitude.kaolin induced 63.0 mm Normal 52.0-69.0 [facility] Comment on above: Performed By: #### 5 8077-9 #### SANDRO Jain ([id number]) [facility] ([facility]) [address] [place] [address] 47982 Maximum clot strength amplitude.kaolin+tissue factor induced 65.0 mm Normal 52.0-70.0 [facility] Comment on above: Performed By: #### 5 8077-9 #### SANDRO Jain ([id number]) [facility] ([facility]) [address] [place] [address] 63604 Maximum clot strength amplitude.tissue factor induced+platelet glycoprotein IIb-IIIa receptor inhibited 21.0 mm Normal 15.0-32.0 [facility] Comment on above: Performed By: #### 5 8077-9 #### SANDRO Jain ([id number]) [facility] ([facility]) [address] [place] [address] 52074 TEST COMMENT baseline Normal [facility] Comment on above: Performed By: #### 5 8077-9 #### SANDRO Jain ([id number]) [facility] ([facility]) [address] [place] [address] 55791 XR CHEST 1 VIEWon 01-09-2025 XR CHEST 1 VIEW Interpreted By: Niraj Bella and Nadeau Simon STUDY: XR CHEST 1 VIEW; 01/09/2025 12:58 pm INDICATION: Signs/Symptoms:Post op cardiac surgery. COMPARISON: Chest radiograph 12/25/2024 ACCESSION NUMBER(S): [id number] ORDERING CLINICIAN: CLAUS LOPEZ FINDINGS: AP radiograph [...] 1. Perihilar and bibasilar bandlike opacifications likely lead customer service representative of atelectasis with small left and trace right pleural effusions. Findings compatible with expected postsurgical changes. 2. Endotracheal tube with distal tip projecting 3.9 cm from the katlyn. 3. Additional medical devices as above. I personally reviewed the images/study and I agree with the findings as stated by Aries Roldan D.O. (residential leasing manager). This study was interpreted at [place], [place]. MACRO: None Signed by: Niraj Bella 01/09/2025 2:13 PM Dictation workstation: [id number] [facility] Comment on above: Order Comment: On ar rival to ICU XR Chest Single viewon 01-09 [facility] MM[facility]AL [facility] MMODAL [facility] Work Phone: Radiology Study observation (narrative) [facility] Work Phone: XR Chest Single viewOrdered By: Niraj Bella on 01-09-2025 [facility] Work Phone: Blood type and Indirect anti body screen panel (Bld)on 12-25-2024 ABO group Nom (Bld) A Normal [facility] Comment on above: Performed By: #### 3 4532-2 #### SANDRO Jain ([id number]) [facility] ([facility]) [address] [place] [address] Blood group antibody screen Ql Negative [facility] Comment on above: Performed By: #### 3 4532-2 #### SANDRO Jain ([id number]) [facility] ([facility]) [address] [place] [address] D Ag Ql (Bld) Positive Normal [facility] Comment on above: Result Comment: 2nd ABO test required. Order and Collect VERAB Performed By: #### 3 4532-2 #### SANDRO Jain ([id number]) [facility] ([facility]) [address] [place] [address] 06190 C reactive proteinon 025 CRP [Mass/Vol] 0.81 mg/dL Normal <1.00 [facility] Comment on above: Performed By: #### 1 988-5 #### SANDRO Jain ([id number]) [facility] ([facility]) [address] [place] [address] 69094 CBC W Auto Differential pane l (Bld)on 12-25-2024 Basophils (Bld) [#/Vol] 0.03 x10*3/uL Normal 0.00-0.10 [facility] Comment on above: Performed By: #### 5 7021-8 #### SANDRO Jain ([id number]) [facility] ([facility]) [address] [place] [address] Basophils/100 WBC (Bld) 0.6 % Normal 0.0-2.0 [facility] Comment on above: Performed By: #### 5 7021-8 #### SANDRO Jain ([id number]) [facility] ([facility]) [address] [place] [address] 65093 Eosinophils (Bld) [#/Vol] 0.03 x10*3/uL Normal 0.00-0.70 [facility] Comment on above: Performed By: #### 5 7021-8 #### SANDRO Jain ([id number]) [facility] ([facility]) [address] [place] [address] 21957 Eosinophils/100 WBC (Bld) 0.6 % Normal 0.0-6.0 [facility] Comment on above: Performed By: #### 5 7021-8 #### SANDRO Jain ([id number]) [facility] ([facility]) [address] [place] [address] 54000 Erythrocyte distribution width (RBC) [Ratio] 13.0 % Normal 11.5-14.5 [facility] Comment on above: Performed By: #### 5 7021-8 #### SANDRO Jain ([id number]) [facility] ([facility]) [address] [place] [address] 69681 Hematocrit (Bld) [Volume fraction] 43.2 % Normal 36.0-46.0 [facility] Comment on above: Performed By: #### 5 7021-8 #### SANDRO Jain ([id number]) [facility] ([facility]) [address] [place] [address] 29625 Hemoglobin (Bld) [Mass/Vol] 13.8 g/dL Normal 12.0-16.0 [facility] Comment on above: Performed By: #### 5 7021-8 #### SANDRO Jain ([id number]) [facility] ([facility]) [address] [place] [address] 57586 Immature granulocytes (Bld) [#/Vol] 0.01 x10*3/uL Normal 0.00-0.70 [facility] Comment on above: Performed By: #### 5 7021-8 #### SANDRO Jain ([id number]) [facility] ([facility]) [address] [place] [address] 49300 Immature granulocytes/100 WBC (Bld) 0.2 % Normal 0.0-0.9 [facility] Comment on above: Result Comment: Nano ture Granulocyte Count (IG) includes promyelocytes, myelocytes and metamyelocytes but does not include bands. Percent differential counts (%) should be interpreted in the context of the absolute cell counts (cells/UL). Performed By: #### 5 7021-8 #### SANDRO Jain ([id number]) [facility] ([facility]) [address] [place] [address] 33482 Lymphocytes (Bld) [#/Vol] 1.30 x10*3/uL Normal 1.20-4.80 [facility] Comment on above: Performed By: #### 5 7021-8 #### SANDRO Jain ([id number]) [facility] ([facility]) [address] [place] [address] 95277 Lymphocytes/100 WBC (Bld) 24.6 % Normal 13.0-44.0 [facility] Comment on above: Performed By: #### 5 7021-8 #### SANDRO Jain ([id number]) [facility] ([facility]) [address] [place] [address] 67415 MCH (RBC) [Entitic mass] 28.1 pg Normal 26.0-34.0 [facility] Comment on above: Performed By: #### 5 7021-8 #### SANDRO Jain ([id number]) [facility] ([facility]) [address] [place] [address] 82298 MCHC (RBC) [Mass/Vol] 31.9 g/dL Low 32.0-36.0 [facility] Comment on above: Performed By: #### 5 7021-8 #### SANDRO Jain ([id number]) [facility] ([facility]) [address] [place] [address] 97513 MCV (RBC) [Entitic vol] 88 fL Normal 80-100 U [facility] Comment on above: Performed By: #### 5 7021-8 #### SANDRO Jain ([id number]) [facility] ([facility]) [address] [place] [address] 34678 Monocytes (Bld) [#/Vol] 0.43 x10*3/uL Normal 0.10-1.00 [facility] Comment on above: Performed By: #### 5 7021-8 #### SANDRO Jain ([id number]) [facility] ([facility]) [address] [place] [address] 23786 Monocytes/100 WBC (Bld) 8.1 % Normal 2.0-10.0 U [facility] Comment on above: Performed By: #### 5 7021-8 #### SANDRO Jain (59738) [facility] ([facility]) [address] [place] [address] Neutrophils (Bld) [#/Vol] 3.49 x10*3/uL Normal 1.20-7.70 [facility] Comment on above: Result Comment: Perc ent differential counts (%) should be interpreted in the context of the absolute cell counts (cells/uL). Performed By: #### 5 7021-8 #### SANDRO Jain ([id number]) [facility] ([facility]) [address] [place] [address] 17233 Neutrophils/100 WBC (Bld) 65.9 % Normal 40.0-80.0 [facility] Comment on above: Performed By: #### 5 7021-8 #### SANDRO Jain ([id number]) [facility] ([facility]) [address] [place] [address] 64426 Nucleated RBC/100 WBC (Bld) [Ratio] 0.0 /100 WBCs Normal 0.0-0.0 [facility] Comment on above: Performed By: #### 5 7021-8 #### SANDRO Jain (60261) [facility] ([facility]) [address] [place] [address] Platelets (Bld) [#/Vol] 177 x10*3/uL Normal 150-450 [facility] Comment on above: Performed By: #### 5 7021-8 #### SANDRO Jain ([id number]) [facility] ([facility]) [address] [place] [address] RBC (Bld) [#/Vol] 4.91 x10*6/uL Normal 4.00-5.20 [facility] Comment on above: Performed By: #### 5 7021-8 #### SANDRO Jain (34924) [facility] ([facility]) [address] [place] [address] WBC (Bld) [#/Vol] 5.3 x10*3/uL Normal 4.4-11.3 [facility] Comment on above: Performed By: #### 5 7021-8 #### SANDRO Jain ([id number]) [facility] ([facility]) [address] [place] [address] 88966 Comprehensive metabolic 2000 panelon 12-25-2024 Albumin BCP dye [Mass/Vol] 4.1 g/dL Normal 3.4-5.0 [facility] Comment on above: Performed By: #### 2 4323-8 #### SANDRO Jain ([id number]) [facility] ([facility]) [address] [place] [address] ALP [Catalytic activity/Vol] 67 U/L Normal 33-110 [facility] Comment on above: Performed By: #### 2 4323-8 #### SANDRO Jain ([id number]) [facility] ([facility]) [address] [place] [address] 50763 ALT With P-5'-P [Catalytic activity/Vol] 16 U/L Normal 7-45 [facility] Comment on above: Result Comment: Justa ents treated with Sulfasalazine may generate falsely decreased results for ALT. Performed By: #### 2 4323-8 #### SANDRO Jain ([id number]) [facility] ([facility]) [address] [place] [address] 65661 Anion gap [Moles/Vol] 12 mmol/L Normal 10-20 [facility] Comment on above: Performed By: #### 2 4323-8 #### SANDRO Jain (12745) [facility] ([facility]) [address] [place] [address] AST With P-5'-P [Catalytic activity/Vol] 17 U/L Normal 9-39 [facility] Comment on above: Performed By: #### 2 4323-8 #### SANDRO Jain (49642) [facility] ([facility]) [address] [place] [address] Bilirubin [Mass/Vol] 0.5 mg/dL Normal 0.0-1.2 [facility] Comment on above: Performed By: #### 2 4323-8 #### SANDRO Jain ([id number]) [facility] ([facility]) [address] [place] [address] Calcium [Mass/Vol] 8.8 mg/dL Normal 8.6-10.6 [facility] Comment on above: Performed By: #### 2 4323-8 #### SANDRO FELIX L ([id number]) [facility] ([facility]) [address] [place] [address] 07226 Chloride [Moles/Vol] 107 mmol/L Normal 98-107 [facility] Comment on above: Performed By: #### 2 4323-8 #### SANDRO FELIX L ([id number]) [facility] ([facility]) [address] [place] [address] CO2 [Moles/Vol] 25 mmol/L Normal 21-32 [facility] Comment on above: Performed By: #### 2 4323-8 #### SANDRO FELIX L (04279) [facility] ([facility]) [address] [place] [address] Creatinine [Mass/Vol] 0.81 mg/dL Normal 0.50-1.05 [facility] Comment on above: Performed By: #### 2 4323-8 #### SANDRO FELIX L ([id number]) [facility] ([facility]) [address] [place] [address] Glomerular filtration rate 89 mL/min/1.73m*2 Normal >60 [facility] Comment on above: Result Comment: Calc ulations of estimated GFR are performed using the 2020 CKD-EPI Study Refit equation without the race variable for the IDMS-Traceable creatinine methods. https://jasn.asnjournals.org/content//ASN.495 6041480 Performed By: #### 2 4323-8 #### SANDRO FELIX L ([id number]) [facility] ([facility]) [address] [place] [address] Glucose [Mass/Vol] 91 mg/dL Normal 74-99 [facility] Comment on above: Performed By: #### 2 4323-8 #### SANDRO Jain (38861) [facility] ([facility]) [address] [place] [address] 45274 Potassium [Moles/Vol] 4.1 mmol/L Normal 3.5-5.3 [facility] Comment on above: Performed By: #### 2 4323-8 #### SANDRO Jain (49789) [facility] ([facility]) [address] [place] [address] 73620 Protein [Mass/Vol] 6.4 g/dL Normal 6.4-8.2 [facility] Comment on above: Performed By: #### 2 4323-8 #### SANDRO Jain (09902) [facility] ([facility]) [address] [place] [address] 57955 Sodium [Moles/Vol] 140 mmol/L Normal 136-145 [facility] Comment on above: Performed By: #### 2 4323-8 #### SANDRO Jain ([id number]) [facility] ([facility]) [address] [place] [address] 61420 Urea nitrogen [Mass/Vol] 14 mg/dL Normal 6-23 [facility] Comment on above: Performed By: #### 2 4323-8 #### SANDRO Jain ([id number]) [facility] ([facility]) [address] [place] [address] 19794 PT and aPTT panel Coag (PPP) on 12-25-2024 aPTT Coag (PPP) [Time] 29 s Normal 26-36 [facility] Comment on above: Order Comment: The A PTT is no longer used for monitoring Unfractionated Heparin Therapy. For monitoring Heparin Therapy, use the Heparin Assay. Performed By: #### 3 4529-8 #### SANDRO Jain (27743) [facility] ([facility]) [address] [place], [place] [address] INR Coag (PPP) [Relative time] 1.0 Normal 0.9-1.1 [facility] Comment on above: Order Comment: The A PTT is no longer used for monitoring Unfractionated Heparin Therapy. For monitoring Heparin Therapy, use the Heparin Assay. Performed By: #### 3 4529-8 #### SANDRO Jain ([id number]) [facility] ([facility]) [address] [place], [place] [address] PT Coag (PPP) [Time] 11.2 s Normal 9.8-12.4 [facility] Comment on above: Order Comment: The A PTT is no longer used for monitoring Unfractionated Heparin Therapy. For monitoring Heparin Therapy, use the Heparin Assay. Performed By: #### 3 4529-8 #### SANDRO Jain (78959) [facility] ([facility]) [address] [place] [address] Staphylococcus aureus.methic illin resistant isolateon 12-25-2024 MRSA isol Org specific cx Ql (Nose) Test: Staphylococcus aureus/MRSA colonization, Culture Specimen Source: Nares/Axilla/Groin Specimen Type: Swab Specimen Date: 12/25/2024 1018 Result Date: 12/26/2024 1405 Result Status: Final result Abnormal: No Resulting Lab: [facility] [address] [place] [address] CULTURE No Staphylococcus aureus isolated Normal [facility] Comment on above: Performed By: #### 5 2969-3 #### SANDRO Jain ([id number]) [facility] ([facility]) [address] [place], [place] [address] Urinalysis complete W Reflex Culture panel (U)on 12-25-2024 Appearance (U) Clear Normal Clear [facility] Comment on above: Performed By: #### 5 8077-9 #### SANDRO Jain ([id number]) [facility] ([facility]) [address] [place] [address] Bilirubin (U) [Mass/Vol] Negative Normal NEGATIVE [facility] Comment on above: Performed By: #### 5 8077-9 #### SANDRO Jain (77682) [facility] ([facility]) [address] [place] [address] 61504 Color (U) Colorless Normal Light-Yellow , Yellow, Dark-Yellow [facility] Comment on above: Performed By: #### 5 8077-9 #### SANDRO Jain (95953) [facility] ([facility]) [address] [place] [address] 13056 Glucose Auto test strip (U) [Mass/Vol] Normal Normal Normal [facility] Comment on above: Performed By: #### 5 8077-9 #### SANDRO Jain ([id number]) [facility] ([facility]) [address] [place] [address] 03384 Ketones (U) [Mass/Vol] Negative Normal NEGATIVE [facility] Comment on above: Performed By: #### 5 8077-9 #### SANDRO Jain ([id number]) [facility] ([facility]) [address] [place] [address] 85174 Leukocyte esterase Auto test strip Ql (U) Negative Normal NEGATIVE [facility] Comment on above: Performed By: #### 5 8077-9 #### SANDRO Jain ([id number]) [facility] ([facility]) [address] [place] [address] 42190 Nitrite Auto test strip Ql (U) Negative Normal NEGATIVE [facility] Comment on above: Performed By: #### 5 8077-9 #### SANDRO Jain ([id number]) [facility] ([facility]) [address] [place] [address] 64079 pH (U) 6.0 [pH] Normal 5.0, 5.5, 6.0, 6.5, 7.0, 7.5, 8.0 [facility] Comment on above: Performed By: #### 5 8077-9 #### SANDRO FELIX L ([id number]) [facility] ([facility]) [address] [place] [address] Protein (U) [Mass/Vol] Negative Normal NEGAT JANENE, 10 (TRACE), 20 (TRACE) [facility] Comment on above: Performed By: #### 5 8077-9 #### SANDRO LARAER L ([id number]) [facility] ([facility]) [address] [place] [address] 79288 RBC (U) [#/Vol] Negative Normal NEGATIVE [facility] Comment on above: Performed By: #### 5 8077-9 #### SANDRO DE DIOSTZER L ([id number]) [facility] ([facility]) [address] [place] [address] 15586 Specific gravity (U) [Rel density] 1.010 Normal 1.005-1.035 [facility] Comment on above: Performed By: #### 5 8077-9 #### SANDRO FELIX L ([id number]) [facility] ([facility]) [address] [place] [address] 71363 Urobilinogen (U) [Mass/Vol] Normal Normal Normal [facility] Comment on above: Performed By: #### 5 8077-9 #### SANDRO DE DIOSTZER L ([id number]) [facility] ([facility]) [address] [place] [address] 65912 XR CHEST 2 VIEWSon XR CHEST 2 VIEWS Interpreted By: Lilly Gentile and Nadeau Simon STUDY: XR CHEST 2 VIEWS; 12/25/2024 11:01 am INDICATION: Signs/Symptoms:pre surgery evaluaiton. ,I34.0 Nonrheumatic mitral (valve) insufficiency COMPARISON: None. ACCESSION NUMBER(S): [id number] ORDERING CLINICIAN: GORDON ARMSTRONG FINDINGS: PA and [...] findings as stated by Aries Roldan D.O. (residential leasing manager). This study was interpreted at [place], [place]. MACRO: None Signed by: Lilly Rodriguez 12/25/2024 2:51 PM Dictation workstation: [id number] Normal [facility] XR Chest 2 Viewson 5 1. No evidence of acute cardiopulmonary process. I personally reviewed the images/study and I agree with the findings as stated by Aries Roldan D.O. (residential leasing manager). This study was interpreted at [place], [place]. MACRO: None Signed by: Lilly Rodriguez 12/25/2024 2:51 PM Dictation workstation: [id number] Interpreted By: Lilly Gentile and Nadeau Simon STUDY: XR CHEST 2 VIEWS; 12/25/2024 11:01 am INDICATION: Signs/Symptoms:pre surgery evaluaiton. ,I34.0 Nonrheumatic mitral (valve) insufficiency COMPARISON: None. ACCESSION NUMBER(S): [id number] ORDERING CLINICIAN: GORDON ARMSTRONG FINDINGS: PA and [...] abdominal findings. BONES: No acute osseous changes. MMODAL Lilly Gentile MD - 12/25/2024 Interpreted By: Lilly Gentile and Nadeau Simon STUDY: XR CHEST 2 VIEWS; 12/25/2024 11:01 am INDICATION: Signs/Symptoms:pre surgery evaluaiton. ,I34.0 Nonrheumatic mitral (valve) insufficiency COMPARISON: None. ACCESSION NUMBER(S): [id number] ORDERING CLINICIAN: GORDON ARMSTRONG FINDINGS: PA and [...] findings as stated by Aries Roldan D.O. (residential leasing manager). This study was interpreted at [place], [place]. MACRO: None Signed by: Lilly Rodriguez 12/25/2024 2:51 PM Dictation workstation: [id number] [facility] Work Phone: Radiology Study observation (narrative) [facility] Work Phone: XR Chest 2 ViewsOrdered By: Lilly Rodriguez on 12-25-2024 [facility] Work Phone: No Panel Informationon 11-17 Study performed outside the system. Official study report is not available here and may be obtained from the performing facility. [email or web address] No Panel InformationOrdered By: Documentation Systemgenerated on 11-17-2024 [facility] Work Phone: LABORATORYOrdered By: Marquita Mckinley on 11-16-2024 Beta HCG ( test) Ql (U) Negative (11/16/24 6:56 AM) [facility] Work Phone: .Auto Diffon 11-13-2024 Basophil, Absolute 0.0 10 3/mcL Normal 0.0-0.3 [facility] Comment on above: Performed By: #### P RO, ADIFF, CBC, GFR, ANEU, BMP #### [id number] [place], [place] [address] Basophils/100 WBC (Bld) 0.5 % Normal 0.0-2.5 [facility] Comment on above: Performed By: #### P RO, ADIFF, CBC, GFR, ANEU, BMP #### [address] [address] Eosinophil, Absolute 0.0 10 3/mcL Normal 0.0-0.7 [facility] Comment on above: Performed By: #### P RO, ADIFF, CBC, GFR, ANEU, BMP #### [address] [address] Eosinophils/100 WBC (Bld) 0.7 % Normal 0.0-6.0 [facility] Comment on above: Performed By: #### P RO, ADIFF, CBC, GFR, ANEU, BMP #### [address] [address] Lymphocyte, Absolute 2.0 10 3/mcL Normal 0.9-4.3 [facility] Comment on above: Performed By: #### P RO, ADIFF, CBC, GFR, ANEU, BMP #### [address] [address] Lymphocytes/100 WBC (Bld) 29.1 % Normal 20.0-40.0 [facility] Comment on above: Performed By: #### P RO, ADIFF, CBC, GFR, ANEU, BMP #### [address] [address] Monocyte, Absolute 0.4 10 3/mcL Normal 0.1-1.4 [facility] Comment on above: Performed By: #### P RO, ADIFF, CBC, GFR, ANEU, BMP #### [address] [address] Monocytes/100 WBC (Bld) 6.2 % Normal 2.0-13.0 [facility] Comment on above: Performed By: #### P RO, ADIFF, CBC, GFR, ANEU, BMP #### [address] [address] Neutrophils/100 WBC (Bld) 63.5 % Normal 50.0-75.0 [facility] Comment on above: Performed By: #### P RO, ADIFF, CBC, GFR, ANEU, BMP #### [address] [address] .GFRon 11-13-2024 Estimated Glomerular Filtration Rate 70 ml/min/1.73sqm Normal [facility] Comment on above: Result Comment: Stages of [...] RO, ADIFF, CBC, GFR, ANEU, BMP #### [address] [address] .NEUABSon 11-13-2024 Neutrophil, Absolute 4.3 10 3/mcL Normal 2.3-8.1 [facility] Comment on above: Performed By: #### P RO, ADIFF, CBC, GFR, ANEU, BMP #### [address] [address] BMPon 11-13-2024 BUN/Creatinine Ratio 14 ratio Normal 7-27 [facility] Comment on above: Performed By: #### P RO, ADIFF, CBC, GFR, ANEU, BMP #### [address] [address] Calcium [Mass/Vol] 8.4 mg/dL Normal 8.4-10.2 [facility] Comment on above: Performed By: #### P RO, ADIFF, CBC, GFR, ANEU, BMP #### [address] [address] Chloride [Moles/Vol] 106 mmol/L Normal 98-107 [facility] Comment on above: Performed By: #### P RO, ADIFF, CBC, GFR, ANEU, BMP #### [address] [address] CO2 [Moles/Vol] 28 mmol/L Normal 22-29 [facility] Comment on above: Performed By: #### P RO, ADIFF, CBC, GFR, ANEU, BMP #### [address] [address] Creatinine [Mass/Vol] 0.99 mg/dL High 0.51-0.95 [facility] Comment on above: Performed By: #### P RO, ADIFF, CBC, GFR, ANEU, BMP #### [address] [address] Electrolyte Balance 8.0 mEq/L Normal 4.0-15.0 [facility] Comment on above: Performed By: #### P RO, ADIFF, CBC, GFR, ANEU, BMP #### [id number] Glucose [Mass/Vol] 98 mg/dL Normal 70-105 [facility] Comment on above: Performed By: #### P RO, ADIFF, CBC, GFR, ANEU, BMP #### [address] [address] Potassium [Moles/Vol] 3.9 mmol/L Normal 3.5-5.1 [facility] Comment on above: Performed By: #### P RO, ADIFF, CBC, GFR, ANEU, BMP #### [address] [address] Sodium [Moles/Vol] 142 mmol/L Normal 136-145 [facility] Comment on above: Performed By: #### P RO, ADIFF, CBC, GFR, ANEU, BMP #### [address] [address] Urea nitrogen [Mass/Vol] 14 mg/dL Normal 7-18 [facility] Comment on above: Performed By: #### P RO, ADIFF, CBC, GFR, ANEU, BMP #### [address] [address] CBCon 07-07-2025 Erythrocyte distribution width (RBC) [Ratio] 13.8 % Normal 11.5-15.5 [facility] Comment on above: Performed By: #### P RO, ADIFF, CBC, GFR, ANEU, BMP #### [address] [address] Hematocrit (Bld) [Volume fraction] 41.2 % Normal 34.0-46.0 [facility] Comment on above: Performed By: #### P RO, ADIFF, CBC, GFR, ANEU, BMP #### [address] [address] Hgb 13.8 G/dL Normal 12.0-16.0 [facility] Comment on above: Performed By: #### P RO, ADIFF, CBC, GFR, ANEU, BMP #### [address] [address] MCH (RBC) [Entitic mass] 28.6 pg Normal 27.0-33.0 [facility] Comment on above: Performed By: #### P RO, ADIFF, CBC, GFR, ANEU, BMP #### [address] [address] MCHC 33.5 G/dL Normal 32.0-36.0 [facility] Comment on above: Performed By: #### P RO, ADIFF, CBC, GFR, ANEU, BMP #### [address] [address] MCV (RBC) [Entitic vol] 85.2 fL Normal 80.0-99.0 [facility] Comment on above: Performed By: #### P RO, ADIFF, CBC, GFR, ANEU, BMP #### [address] [address] Platelet 160 10 3/mcL Normal 150-450 [facility] Comment on above: Performed By: #### P RO, ADIFF, CBC, GFR, ANEU, BMP #### [address] [address] Platelet mean volume (Bld) [Entitic vol] 10.7 fL High 6.6-10.5 [facility] Comment on above: Performed By: #### P RO, ADIFF, CBC, GFR, ANEU, BMP #### [address] [place], [place] [address] RBC 4.83 10 6/mcL Normal 4.10-5.30 [facility] Comment on above: Performed By: #### P RO, ADIFF, CBC, GFR, ANEU, BMP #### [address] [place], [place] [address] WBC 6.7 10 3/mcL Normal 4.5-10.8 [facility] Comment on above: Performed By: #### P RO, ADIFF, CBC, GFR, ANEU, BMP #### [address] [place], [place] [address] LABORATORYOrdered By: SYSTEM SYSTEM on 11-13-2024 Basophils [...] on above: Interpretive Data: Jorge L brandt [employer] (CHEST, 1991, 102:312S-25S) [...] Coag (PPP) [Time] 10.9 s Normal 9.0-14.4 [facility] Comment on above: Performed By: #### P RO, ADIFF, CBC, GFR, ANEU, BMP #### [id number] [employer] Ratio 1.0 Normal [facility] Comment on above: Result Comment: [employer] (CHEST, 1992, 102:312S-25S) recommended therapeutic range for oral anticoagulant therapy is: LOW RISK: Prophylaxis of venous thrombosis INR: 2.0-3.0 Treatment of pulmonary embolism 2.0-3.0 Prevention of systemic embolism 2.0-3.0 HIGH RISK: Mechanical prosthetic valves 2.5-3.5 Performed By: #### P RO, ADIFF, CBC, GFR, ANEU, BMP #### [address] [address] Laboratory - Microbiology an d Antimicrobial susceptibilityOrdered By: [facility] MICROBIOLOGY on 10-31-2024 Bacteria identified Cx Nom (Bld) Culture has been received in lab and is no growth to date. Culture will be held for four weeks. [facility] No Panel Informationon 10-31 Microscopic examination of blood, culture Culture has been received in lab and is no growth to date. Routine cultures are held for 5 days. [facility] Work Phone: CV ECHO COMPLETE WITHOUT CON TRASTon 09-08-2024 CV ECHO COMPLETE WITHOUT CONTRAST [address] [address] Patient: MICHELL WOOTEN Phone#: : 1975 Age: 48 Gender: F Pt. Type: Out Account: [id number] Location: [facility] Ordering: DR. SWAPNA MANN Exam Date: 09/08/2024/12:56 Family Phys: Charge Code: 964150 Physician: Carson Order #: [id number] Dose#: PROCEDURE: ECHOCARDIOGRAM WITH DOPPLER AND COLOR FLOW HISTORY: Patient is a 48-year-old female with history of cardiomyopathy INDICATIONS: Cardiomyopathy COMPARISON: None. TECHNIQUE: A 2-D ultrasound, color spectral Doppler and M-mode evaluation of the heart and great vessels. PATIENT MEASUREMENTS: Height (in.): 69 BSA: 2.2 Weight (lbs.): 230 BP: 145/88 Electrical Wiring Lineman: SHAY M MODE 2D MEASUREMENTS AND CALCULATIONS: [...] 48 Gender: F Pt. Type: Out Account: [id number] Location: [facility] Ordering: DR. SWAPNA MANN Exam Date: 09/08/2024/12:56 Family Phys: Charge Code: 811461 Physician: Carson Order #: [id number] Dose#: MV V2 mean: 0.72 m/s MV [...] 48 Gender: F Pt. Type: Out Account: [id number] Location: 052 Ordering: DR. SWAPNA MANN Exam Date: 09/08/2024/12:56 Family Phys: Charge Code: 788537 Physician: Carson Order #: [id number] Dose#: 3 - Basal inferoseptal: Normal. 9 [...] Exact mechan (more content not included)... Normal [facility] CNOVon 04-18-2024 CNOV Office Visit (INTMWS) MICHELL WOOTEN ([id number]) 1975 F Date Time Provider Department 04/18/24 11:00 AM GILL KNIGHT INTMWS During your visit today, we recorded the following information about you: Pulse Blood pressure Weight 77/minute 110/76 106.7 kg Gill Knight, NURSERY MANAGER.DIRECTOR OF SOCIAL MEDIA MARKETING 04/18/2024 11:12 AM Signed CC: Patient presents [...] (AUB) 12/30/2021 Adenomyosis 12/30/2021 Asthma Atrial tachycardia ([facility]) 2009 Atrioventricular block, complete (HCC) 07/31/2005 3rd degree AVB Bipolar affective ([facility]) Dr. Rios Bipolar affective disorder ([facility]) 12/01/2018 Congenital third degree heart block 07/31/2005 [...] 02/05/2022 Marcella ablation ICD GENERATOR CHANGE 07/19/2020 [facility] IMPLANTABLE CARDIOVERTER DEFIBRILLATOR 05/10/2009 defib/pacer- [facility], [...] of the left foot Neurological: Mental Status: Michell is alert. ASSESSMENT/PLAN: 1. Pain of left [...] improve or sooner if worsening. Gill Knight APRN.DIRECTOR OF SOCIAL MEDIA MARKETING Prescription instructions reviewed with patient as applicable. Potential red flag symptoms discussed with the patient. Reviewed appropriate action plan to take if red flag symptoms occur. Patient agreeabl (more content not included)... [facility]INTMWS[facility] MICHELL WOOTEN ([id number]) 1975 F Date Time Provider Department 04/17/24 MIHIR GLOVER INTMWS During your visit today, [...] Fully Assessed Reason for Visit: Patient Request [[id number]] Prescriptions as of 04/17/2024 - omeprazole (PRILOSEC) [...] Status:Closed by BALBINA LAMAS on 04/17/24 Normal [facility] Emergency Department Summary on 02-08-2024 Emergency Department Summary [facility] Medical Records Department [address] [place] [address] Emergency Department Summary 02/08/24 MR#: [id number] Acct: [id number] Name: MICHELL WOOTEN Rep #: [id number] : 1975 48 From: Justin Olson DO [...] with movement. Patient denies any other injuries. [facility] Medical History (Updated 02/08/24 @ 15:[address] Justin Olson, DO) Wears glasses Wears dentures Marijuana use [...] or tenderness (more content not included)... Normal [facility] Lumbar Spine 2 or 3 Viewson 02-08-2024 Lumbar Spine 2 or 3 Views [facility] Imaging Services [address] [place] [id number] Lumbar Spine 2 or 3 Views MR#: [id number] Acct: [id number] Name: MICHELL WOOTEN Rep #: [id number] : 1975 F 48 From: Fletcher stewart MD PCP: Dr. Mihir Glover MD Status: REG ER Study: Lumbar Spine 2 or 3 Views Date of Exam: Exam# [id number] Ordering Dr: Justin Olson DO [id number] STUDY: X-RAY - LUMBAR SPINE REASON FOR [...] Justin Olson DO; Dr. Mihir Glover MD Chemical Librarian: Signed Normal [facility] ANES POSTPROC EVALon 024 ANES POSTPROC EVAL HNO ID: [id number] Author: RAMÓN HUTCHISON MD Service: Anesthesiology Author Type: Anesthesiologist Type: Anesthesia Postprocedure Evaluation Filed: 08/09/2023 12:10 Note Text: POST ANESTHESIA EVALUATION NOTE : 1975 Procedure Summary Date: 08/09/23 Room / Location: [facility] Endoscopy Anesthesia Start: 1047 Anesthesia Stop: 1136 Procedures: EGD DIAGNOSTIC COLONOSCOPY DIAGNOSTIC Diagnosis: Blood in stool Constipation, unspecified constipation type Gastroesophageal reflux disease without esophagitis (Constipation) (Established esophageal reflux) Scheduled Providers: Luz Elena Bella MD; Mauricio Hickman APRN.TECHNICAL SERVICE ENGINEER; Ramón Hutchison MD Responsible Provider: Ramón Hutchison [...] August 09, 2023 TIME: 12:09 PM CSN: [id number] Normal [facility] ANES PRE-OPon 08-09-2023 ANES PRE-OP HNO ID: [id number] Author: RAMÓN HUTCHISON MD Service: Anesthesiology Author Type: Anesthesiologist Type: Anesthesia Preprocedure Evaluation Filed: 08/09/2023 08:17 Note Text: ANESTHESIOLOGY DAY OF SURGERY NOTE : 1975 Procedure Information Date/Time: 08/09/23 1130 Scheduled providers: Luz Elena Bella MD; Mauricio Hickman APRN.TECHNICAL SERVICE ENGINEER; Ramón Hutchison MD Procedures: EGD DIAGNOSTIC COLONOSCOPY DIAGNOSTIC Location: [facility] Endoscopy Estimated body mass index is 31.75 [...] and consent discussed: yes. Patient / Responsible Constitution Party agrees to proceed: yes Patient / Surrogate [...] Pulse 72 08/09/23 0759 Resp 20 08/09/23 075 Temp 36.9 ?C (98.4 ?F) 08/09/23 075 SpO2 99 % 08/09/23 075 Outpatient Medications as of 08/09/2023 Medication Sig [...] August 09, 2023 TIME: 8:13 AM CSN: [id number] Normal [facility] Colonoscopyon 08-09-2023 Colonoscopy [facility] Gastrointestinal Endoscopy Patient Name: Michell Wooten Procedure Date: 08/09/2023 11:01 AM Date of : 1975 Admit Type: Outpatient Age: 47 Room: [facility] Gender: Female Note Status: Finalized Attending MD: Luz Elena Bella MD, [id number] Procedure: Colonoscopy Indications: Constipation Providers: Luz Elena [...] anesthesia care under the supervision of a TECHNICAL SERVICE ENGINEER was determined to be medically necessary for [...] clip was successfully placed (MR conditional). Clip agronomy technician: [employer]. There was no bleeding at the end [...] retrieved. Clip (MR conditional) was placed. Clip agronomy technician: [employer]. - Two 10 to 15 mm polyps [...] previous diet. Procedure Code(s): --- Professional --- 15749, Colonoscopy, flexible; with removal of tumor(s), polyp(s), or other lesion(s) by snare technique Diagnosis Code(s): --- Professional --- K59.00, Constipation, unspecified D12.5, Benign neoplasm of sigmoid colon D12.4, Benign neoplasm of descending colon D12.3, Benign neoplasm of transverse colon (hepatic flexure or splenic flexure) K64.8, Other hemorrhoids CPT copyright 2020 [employer]. All rights reserved. The codes documented in this report are preliminary and upon gui developer review may be revised to meet current compliance requirements. Attending Participation: I personally performed the entire procedure. Scope In: 11:06:11 AM Scope Out: 11:32:46 AM MD Luz Elena Galvan MD 08/09/2023 11:38:40 AM This report has been signed electronically by Luz Elena Bella MD Number of Addenda: 0 Note Initiated On: 08/09/2023 11:01 AM Estimated Blood Loss: Estimated blood loss was minimal. Normal [facility] HISTORY PHYSICALon HISTORY PHYSICAL HNO ID: [id number] Author: LUZ ELENA BELLA MD Service: General Surgery Author Type: Physician Type: H&P Filed: 08/09/2023 08:51 Note Text: CHIEF COMPLAINT: Consult (Rectal bleeding and constipation. ) HPI: The patient is a 46 year old female referred for endoscopy. Michell notes the following GI complaints: Michell notes abdominal pain. The pain occurs in the following locations: It occurs diffusely and is often more of a bloating sensation than true pain. Michell denies diarrhea. Michell notes constipation. Michell denies a change in bowel habits. Michell denies melena. Michell notes bright red blood per rectum. Michell denies hemorrhoids. The patient notes the following upper complaints: Michell denies abdominal pain.. Michell notes heartburn. Michell denies dysphagia. Michell denies a history of ulcers/ peptic ulcer [...] today at the request of Gill Linares APRN.LEIF my opinion and advice regarding constipation, rectal bleeding, reflux and epigastric symptoms. PAST MEDICAL HISTORY PAST MEDICAL HISTORY Diagnosis Date Asthma Atrial tachycardia ([facility]) 2009 Atrioventricular block, complete ([facility]) 07/31/2005 3rd degree AVB Bipolar affective ([facility]) Dr. Rios Bipolar affective disorder ([facility]) 12/01/2018 Congenital third degree heart block 07/31/2005 [...] 02/05/2022 Marcella ablation ICD GENERATOR CHANGE 07/19/2020 [facility] IMPLANTABLE CARDIOVERTER DEFIBRILLATOR 05/10/2009 defib/pacer- [facility], [...] Thyroid is unr (more content not included)... [facility] NURSING PROGon 08-09-2023 NURSING PROG HNO ID: [id number] Author: MAURICIO CHAPMAN, RN Service: Nursing Author Type: Registered Nurse Type: Nursing Progress Note Filed: 08/09/2023 09:19 Note Text: Nursing Progress Note Topic of Note: Incidental PATIENT NAME: Michell Wooten Patient Location: Room/bed info not found Room: [address] Hutchison regarding no pacemaker/AICD check for patient prior to procedure. Dr. Hutchison stated that he did not need to see a pacer/AICD check and it was not necessary to obtain one. This note was completed by: Mauricio Chapman. [facility] Upper GI endoscopyon 024 Upper GI endoscopy [facility] Gastrointestinal Endoscopy Patient Name: Michell Wooten Procedure Date: 08/09/2023 10:46 AM Date of : 1975 Admit Type: Outpatient Age: 47 Room: [facility] Gender: Female Note Status: Finalized Attending MD: Luz Elena Bella MD, [id number] Procedure: Upper GI endoscopy Indications: Esophageal reflux Providers: Luz Elena Bella MD Patient Profile: Refer to note in patient chart for documentation of history and physical. Referring Physician: Deirdre Ashley MD (Referring MD) Medicines: See the Anesthesia note for documentation of the administered medications Complications: No immediate complications. Requesting Provider: Procedure: Pre-Anesthesia Assessment: - Monitored anesthesia care under the supervision of a TECHNICAL SERVICE ENGINEER was determined to be medically necessary for [...] available appointment. Procedure Code(s): --- Professional --- 20404, Esophagogastroduoden oscopy, flexible, transoral; with biopsy, single or multiple Diagnosis Code(s): --- Professional --- K21.9, Gastro-esophageal reflux disease without esophagitis K22.89, Other specified disease of esophagus K31.89, Other diseases of stomach and duodenum CPT copyright 2020 [employer]. All rights reserved. The codes documented in this report are preliminary and upon gui developer review may be revised to meet current compliance requirements. Attending Participation: I personally performed the entire procedure. Scope In: 10:56:22 AM Scope Out: 11:01:19 AM MD Luz Elena Galvan MD 08/09/2023 11:05:03 AM This report has been signed electronically by Luz Elena Bella MD Number of Addenda: 0 Note Initiated On: 08/09/2023 10:46 AM Estimated Blood Loss: Estimated blood loss was minimal. Normal [facility] Absolute lymphocyte countOrd ered By: Cornelius Aguiar on 04-15-2023 Lymphocytes Auto (Unsp spec) [#/Vol] 1.60 10*3/uL 0.83-4.51 [facility] Basophil percentageOrdered B y: Cornelius Aguiar on 04-15-2023 Basophils/100 WBC (Bld) 0.4 % 0-1 [facility] Eosinophils/100 WBC (Bld) 0.1 % 0-5 [facility] Neutrophils (Bld) [#/Vol] 7.5 10*3/uL 2.0-7.7 [facility] Neutrophils/100 WBC (Bld) 77.7 % 47-70 [facility] WBC (Bld) [#/Vol] 9.6 10*3/uL 4.4-11.0 [facility] Basophil percentageOrdered B y: ED PROVIDER on 04-15-2023 Chloride [Moles/Vol] 108 mmol/L 98-107 [facility] Glucose [Mass/Vol] 103 mg/dL 74-106 [facility] Comment on above: Fasting Glucose resu lt from 100 to 125 mg/dL suggests IMPAIRED HOMEOSTASIS per A.D.A. criteria. Potassium [Moles/Vol] 3.7 mmol/L 3.5-5.1 [facility] Sodium [Moles/Vol] 139 mmol/L 136-145 [facility] Blood erythrocytes count (nu mber/volume)Ordered By: Cornelius Aguiar on 04-15-2023 RBC (Bld) [#/Vol] 5.12 10*6/uL 4.2-5.4 [facility] Blood hemoglobin measurement (mass/volume)Ordered By: Cornelius Aguiar on 04-15-2023 Hemoglobin (Bld) [Mass/Vol] 14.2 g/dL 12.0-15.0 [facility] Blood lymphocytes/100 leukoc ytesOrdered By: Cornelius Aguiar on 04-15-2023 Lymphocytes/100 WBC (Bld) 16.6 % 19-41 [facility] Blood monocytes/100 leukocyt esOrdered By: Cornelius Aguiar on 04-15-2023 Monocytes/100 WBC (Bld) 4.9 % 0-10 [facility] Blood platelet mean volumeOr dered By: Cornelius Aguiar on 04-15-2023 Platelet mean volume (Bld) [Entitic vol] 12.6 fL 6.2-12.0 [facility] COVID-19 virus antigen assay Ordered By: Cornelius Aguiar on 04-15-2023 SARS-CoV-2 (COVID-19) Ag IA.rapid Ql (Resp) [facility] SARS-CoV-2 (COVID-19) Ag IA.rapid Ql (Resp) [facility] Determination of erythrocyte mean corpuscular volume (MCV)Ordered By: Cornelius Aguiar on 04-15-2023 MCV (RBC) [Entitic vol] 85.5 fL 81-99 [facility] Hematocrit Auto (Bld) [Volum e fraction]Ordered By: Cornelius Aguiar on 04-15-2023 Hematocrit (Bld) [Volume fraction] 43.8 % 37-47 [facility] Laboratory - Chemistry and C hemistry - challengeOrdered By: ED PROVIDER on 04-15-2023 CO2 [Moles/Vol] 25.0 mmol/L 21.0-32.0 [facility] Urea nitrogen/Creatinine [Mass ratio] 19.5 mg/mg 10-20 [facility] Laboratory - Hematology and Cell countsOrdered By: Cornelius Aguiar on 04-15-2023 Erythrocyte distribution width (RBC) [Entitic vol] 39.4 fL 35.1-43.9 [facility] Erythrocyte distribution width (RBC) [Ratio] 12.7 % 11.6-14.6 [facility] Immature granulocytes/100 WBC (Bld) 0.300 % 0.0-0.9 [facility] Comment on above: IG% - Immature Granu locytes (promyelocytes, myelocytes and metamyelocytes) > 1% indicates that a LEFT SHIFT is Present. MCH (RBC) [Entitic mass] 27.7 pg 27.0-32.0 [facility] Nucleated RBC/100 WBC (Bld) [Ratio] 0 % 0-5 [facility] MCHC Auto (RBC) [Mass/Vol]Or dered By: Cornelius Aguiar on 04-15-2023 MCHC (RBC) [Mass/Vol] 32.4 g/dL 32-36 [facility] No Panel InformationOrdered By: ED PROVIDER on 04-15-2023 Estimated Creatinine Clearance Calc 83.54 ml/min [facility] Estimated GFR (MDRD) Amer 89 mL/min >60 [facility] Comment on above: GFR Calc Estimated GFR (MDRD) Non-Af Amer 74 mL/min >60 [facility] Comment on above: Non- GFR Calc No Panel InformationOrdered By: Cornelius Aguiar on 04-15-2023 Troponin I High Sensitivity 14 pg/mL 3.0-54.0 [facility] Comment on above: Please Note: [place] t Units and Gender Specific Reference Ranges. For more information see Policy Stat Procedure [place] High Sensitivity Troponin (TNIH) and attachments. Platelets bldOrdered By: Jaydon Aguiar on 04-15-2023 Platelets (Bld) [#/Vol] 173 10*3/uL 150-450 [facility] Serum or plasma calcium linda urement (mass/volume)Ordered By: ED PROVIDER on 04-15-2023 Calcium [Mass/Vol] 8.2 mg/dL 8.5-10.1 [facility] Serum or plasma creatinine m easurement (mass/volume)Ordered By: ED PROVIDER on 04-15-2023 Creatinine [Mass/Vol] 0.87 mg/dL 0.55-1.02 [facility] Comment on above: The validity of the calculated GFR & GFRAA in patients over 70 years has not been determined. Clinical correlation is essential. Serum or plasma urea nitroge n measurement (mass/volume)Ordered By: ED PROVIDER on 04-15-2023 Urea nitrogen [Mass/Vol] 17 mg/dL 7-18 [facility] Thin prep Papanicolaou smear with manual screeningOrdered By: ED PROVIDER on 04-15-2023 Thin prep Papanicolaou smear with manual screening 6 5-15 [facility] CBC W Auto Differential pane l (Bld)on 09-02-2022 Basophils (Bld) [#/Vol] 0.03 10*3/uL <0.11 k/uL [facility] Basophils/100 WBC (Bld) 0.4 % [facility] Differential cell count method Nom (Bld) Auto [facility] Eosinophils (Bld) [#/Vol] 0.07 10*3/uL <0.46 k/uL [facility] Eosinophils/100 WBC (Bld) 0.9 % [facility] Erythrocyte distribution width (RBC) [Ratio] 12.8 % 11.5 - 15.0 % [facility] Hematocrit (Bld) [Volume fraction] 43.8 % 36.0 - 46.0 % [facility] Hemoglobin (Bld) [Mass/Vol] 14.1 g/dL 11.5 - 15.5 g/dL [facility] Immature granulocytes (Bld) [#/Vol] <0.10 k/uL [facility] Immature granulocytes/100 WBC (Bld) 0.2 % [facility] Lymphocytes (Bld) [#/Vol] 2.08 10*3/uL 1.00 - 4.00 k/uL [facility] Lymphocytes/100 WBC (Bld) 25.9 % [facility] MCH (RBC) [Entitic mass] 28.8 pg 26. 0 - 34.0 pg [facility] MCHC (RBC) [Mass/Vol] 32.2 g/dL 30.5 - 36.0 g/dL [facility] MCV (RBC) [Entitic vol] 89.6 fL 80.0 - 100.0 fL [facility] Monocytes (Bld) [#/Vol] 0.62 10*3/uL <0.87 k/uL [facility] Monocytes/100 WBC (Bld) 7.7 % [facility] Neutrophils (Bld) [#/Vol] 5.22 10*3/uL 1.45 - 7.50 k/uL [facility] Neutrophils/100 WBC (Bld) 64.9 % [facility] Nucleated RBC (Bld) [#/Vol] <0.01 k/uL [facility] Nucleated RBC/100 WBC (Bld) [Ratio] 0.0 /100 WBC [facility] Platelet mean volume (Bld) [Entitic vol] 12.8 fL High 9.0 - 12.7 fL [facility] Platelets (Bld) [#/Vol] 168 10*3/uL 150 - 400 k/uL [facility] RBC (Bld) [#/Vol] 4.89 10*6/uL 3.90 - 5.2 0 m/uL [facility] WBC (Bld) [#/Vol] 8.04 10*3/uL 3.70 - 11. 00 k/uL [facility] CBC W Auto Differential pane l (Bld)on 12-29-2021 Abs Immature Gran 0.11 k/uL High <0.10 k/uL [facility] Basophils (Bld) [#/Vol] 0.04 10*3/uL <0.11 k/uL [facility] Basophils/100 WBC (Bld) 0.5 % [facility] Differential cell count method Nom (Bld) Auto [facility] Eosinophils (Bld) [#/Vol] 0.09 10*3/uL <0.46 k/uL [facility] Eosinophils/100 WBC (Bld) 1.1 % [facility] Erythrocyte distribution width (RBC) [Ratio] 20.4 % High 11.5 - 15.0 % [facility] Hematocrit (Bld) [Volume fraction] 39.4 % 36.0 - 46.0 % [facility] Hemoglobin (Bld) [Mass/Vol] 12.4 g/dL 11.5 - 15.5 g/dL [facility] Immature Gran % 1.3 % [facility] Lymphocytes (Bld) [#/Vol] 1.86 10*3/uL 1.00 - 4.00 k/uL [facility] Lymphocytes/100 WBC (Bld) 22.7 % [facility] MCH (RBC) [Entitic mass] 25.4 pg Low 26. 0 - 34.0 pg [facility] MCHC (RBC) [Mass/Vol] 31.5 g/dL 30.5 - 36.0 g/dL [facility] MCV (RBC) [Entitic vol] 80.6 fL 80.0 - 100.0 fL [facility] Monocytes (Bld) [#/Vol] 0.50 10*3/uL <0.87 k/uL [facility] Monocytes/100 WBC (Bld) 6.1 % [facility] Neutrophils (Bld) [#/Vol] 5.61 10*3/uL 1.45 - 7.50 k/uL [facility] Neutrophils/100 WBC (Bld) 68.3 % [facility] Nucleated RBC (Bld) [#/Vol] <0.01 k/uL [facility] Nucleated RBC/100 WBC (Bld) [Ratio] 0.0 /100 WBC [facility] Platelet mean volume (Bld) [Entitic vol] 12.1 fL 9.0 - 12.7 fL [facility] Platelets (Bld) [#/Vol] 242 10*3/uL 150 - 400 k/uL [facility] RBC (Bld) [#/Vol] 4.89 10*6/uL 3.90 - 5.2 0 m/uL [facility] WBC (Bld) [#/Vol] 8.21 10*3/uL 3.70 - 11. 00 k/uL [facility] Absolute lymphocyte counton 11-17-2021 Lymphocytes Auto (Unsp spec) [#/Vol] 1.33 10*3/uL 0.83-4.51 [facility] Work Phone: Basophil percentageon 2021 Basophils/100 WBC (Bld) 0.5 % 0-1 [facility] Work Phone: Chloride [Moles/Vol] 106 mmol/L 98-107 [facility] Work Phone: Eosinophils/100 WBC (Bld) 0.8 % 0-5 [facility] Work Phone: Glucose [Mass/Vol] 169 mg/dL 74-106 [facility] Work Phone: Comment on above: Fasting Glucose resu lt greater than or equal to 126 mg/dL suggests DIABETES MELLITUS per A.D.A. criteria. Neutrophils (Bld) [#/Vol] 4.6 10*3/uL 2.0-7.7 [facility] Work Phone: Neutrophils/100 WBC (Bld) 71.8 % 47-70 [facility] Work Phone: Potassium [Moles/Vol] 3.8 mmol/L 3.5-5.1 [facility] Work Phone: Sodium [Moles/Vol] 140 mmol/L 136-145 [facility] Work Phone: WBC (Bld) [#/Vol] 6.3 10*3/uL 4.4-11.0 [facility] Work Phone: Blood erythrocytes count (nu mber/volume)on 11-17-2021 RBC (Bld) [#/Vol] 4.27 10*6/uL 4.2-5.4 [facility] Work Phone: Blood hemoglobin measurement (mass/volume)on 11-17-2021 Hemoglobin (Bld) [Mass/Vol] 10.3 g/dL 12.0-15.0 [facility] Work Phone: Blood lymphocytes/100 leukoc yteson 07-11-2022 Lymphocytes/100 WBC (Bld) 21.0 % 19-41 [facility] Work Phone: Blood monocytes/100 leukocyt eson 11-17-2021 Monocytes/100 WBC (Bld) 5.4 % 0-10 [facility] Work Phone: Blood platelet mean volumeon 11-17-2021 Platelet mean volume (Bld) [Entitic vol] 12.2 fL 6.2-12.0 [facility] Work Phone: Determination of erythrocyte mean corpuscular volume (MCV)on 11-17-2021 MCV (RBC) [Entitic vol] 79.4 fL 81-99 [facility] Work Phone: Hematocrit Auto (Bld) [Volum e fraction]on 11-17-2021 Hematocrit (Bld) [Volume fraction] 33.9 % 37-47 [facility] Work Phone: Laboratory - Chemistry and C hemistry - challengeon 11-17-2021 CO2 [Moles/Vol] 25.0 mmol/L 21.0-32.0 [facility] Work Phone: Natriuretic peptide B (Bld) [Mass/Vol] 30.8 pg/mL 0-100 [facility] Work Phone: Urea nitrogen/Creatinine [Mass ratio] 16.0 mg/mg 10-20 [facility] Work Phone: [phone] Laboratory - Hematology and Cell countson 11-17-2021 Erythrocyte distribution width (RBC) [Entitic vol] 45.0 fL 35.1-43.9 [facility] Work Phone: [phone] Erythrocyte distribution width (RBC) [Ratio] 15.6 % 11.6-14.6 [facility] Work Phone: Immature granulocytes/100 WBC (Bld) 0.500 % 0.0-0.9 [facility] Work Phone: Comment on above: IG% - Immature Granu locytes (promyelocytes, myelocytes and metamyelocytes) > 1% indicates that a LEFT SHIFT is Present. MCH (RBC) [Entitic mass] 24.1 pg 27.0-32.0 [facility] Work Phone: Nucleated RBC/100 WBC (Bld) [Ratio] 0 % 0-5 [facility] Work Phone: [phone] MCHC Auto (RBC) [Mass/Vol]on 11-17-2021 MCHC (RBC) [Mass/Vol] 30.4 g/dL 32-36 [facility] Work Phone: No Panel Informationon 11-17 Estimated Creatinine Clearance Calc 73.46 ml/min [facility] Work Phone: [phone] Estimated GFR (MDRD) Amer 77 mL/min >60 [facility] Work Phone: [phone] Comment on above: GFR Calc Estimated GFR (MDRD) Non-Af Amer 63 mL/min >60 [facility] Work Phone: [phone] Comment on above: Non- GFR Calc Troponin I High Sensitivity 7 pg/mL 3.0-54.0 [facility] Work Phone: Comment on above: Please Note: [place] t Units and Gender Specific Reference Ranges. For more information see Policy Stat Procedure [place] High Sensitivity Troponin (TNIH) and attachments. Platelets bldon 11-17-2021 Platelets (Bld) [#/Vol] 216 10*3/uL 150-450 [facility] Work Phone: [phone] Serum or plasma calcium linda urement (mass/volume)on 11-17-2021 Calcium [Mass/Vol] 8.6 mg/dL 8.5-10.1 [facility] Work Phone: [phone] Serum or plasma creatinine m easurement (mass/volume)on 11-17-2021 Creatinine [Mass/Vol] 1.00 mg/dL 0.55-1.02 [facility] Work Phone: Comment on above: The validity of the calculated GFR & GFRAA in patients over 70 years has not been determined. Clinical correlation is essential. Serum or plasma urea nitroge n measurement (mass/volume)on 11-17-2021 Urea nitrogen [Mass/Vol] 16 mg/dL 11-24 [facility] Work Phone: Thin prep Papanicolaou smear with manual screeningon 11-17-2021 Thin prep Papanicolaou smear with manual screening 01 12- [facility] Work Phone: CBC W Auto Differential pane l (Bld)on 11-05-2021 Abs Immature Gran 0.03 k/uL <0.10 k/uL [facility] Basophils (Bld) [#/Vol] 0.06 10*3/uL <0.11 k/uL [facility] Basophils/100 WBC (Bld) 0.7 % [facility] Differential cell count method Nom (Bld) Auto [facility] Eosinophils (Bld) [#/Vol] 0.03 10*3/uL <0.46 k/uL [facility] Eosinophils/100 WBC (Bld) 0.4 % [facility] Erythrocyte distribution width (RBC) [Ratio] 17.0 % High 11.5 - 15.0 % [facility] Hematocrit (Bld) [Volume fraction] 30.7 % Low 36.0 - 46.0 % [facility] Hemoglobin (Bld) [Mass/Vol] 9.6 g/dL Low 11.5 - 15.5 g/dL [facility] Immature Gran % 0.4 % [facility] Lymphocytes (Bld) [#/Vol] 1.72 10*3/uL 1.00 - 4.00 k/uL [facility] Lymphocytes/100 WBC (Bld) 21.4 % [facility] MCH (RBC) [Entitic mass] 24.1 pg Low 26. 0 - 34.0 pg [facility] MCHC (RBC) [Mass/Vol] 31.3 g/dL 30.5 - 36.0 g/dL [facility] MCV (RBC) [Entitic vol] 76.9 fL Low 80.0 - 100.0 fL [facility] Monocytes (Bld) [#/Vol] 0.46 10*3/uL <0.87 k/uL [facility] Monocytes/100 WBC (Bld) 5.7 % [facility] Neutrophils (Bld) [#/Vol] 5.74 10*3/uL 1.45 - 7.50 k/uL [facility] Neutrophils/100 WBC (Bld) 71.4 % [facility] Nucleated RBC (Bld) [#/Vol] 10*3/uL <0.01 k/uL [facility] Nucleated RBC/100 WBC (Bld) [Ratio] 0.0 /100 WBC [facility] Platelet mean volume (Bld) [Entitic vol] 12.1 fL 9.0 - 12.7 fL [facility] Platelets (Bld) [#/Vol] 241 10*3/uL 150 - 400 k/uL [facility] RBC (Bld) [#/Vol] 3.99 10*6/uL 3.90 - 5.2 0 m/uL [facility] WBC (Bld) [#/Vol] 8.04 10*3/uL 3.70 - 11. 00 k/uL [facility] Absolute lymphocyte counton 10-24-2021 Lymphocytes Auto (Unsp spec) [#/Vol] 1.57 10*3/uL 0.83-4.51 [facility] Work Phone: Basophil percentageon 2021 Basophil percentage 0 SEEN /hpf 0-5 [facility] Work Phone: Basophils/100 WBC (Bld) 0.3 % 0-1 [facility] Work Phone: Chloride [Moles/Vol] 108 mmol/L 98-107 [facility] Work Phone: Eosinophils/100 WBC (Bld) 0.4 % 0-5 [facility] Work Phone: Glucose [Mass/Vol] 114 mg/dL 74-106 [facility] Work Phone: Comment on above: Fasting Glucose resu lt from 100 to 125 mg/dL suggests IMPAIRED HOMEOSTASIS per A.D.A. criteria. Neutrophils (Bld) [#/Vol] 5.3 10*3/uL 2.0-7.7 [facility] Work Phone: Neutrophils/100 WBC (Bld) 72.4 % 47-70 [facility] Work Phone: Potassium [Moles/Vol] 3.6 mmol/L 3.5-5.1 [facility] Work Phone: Sodium [Moles/Vol] 138 mmol/L 136-145 [facility] Work Phone: WBC (Bld) [#/Vol] 7.3 10*3/uL 4.4-11.0 [facility] Work Phone: Bilirubin Test strip Ql (U)o n 10-24-2021 Bilirubin Ql (U) Negative Negative [facility] Work Phone: Blood erythrocytes count (nu mber/volume)on 10-24-2021 RBC (Bld) [#/Vol] 4.38 10*6/uL 4.2-5.4 [facility] Work Phone: Blood hemoglobin measurement (mass/volume)on 10-24-2021 Hemoglobin (Bld) [Mass/Vol] 10.5 g/dL 12.0-15.0 [facility] Work Phone: Blood lymphocytes/100 leukoc yteson 10-24-2021 Lymphocytes/100 WBC (Bld) 21.5 % 19-41 [facility] Work Phone: Blood monocytes/100 leukocyt eson 10-24-2021 Monocytes/100 WBC (Bld) 5.3 % 0-10 [facility] Work Phone: Blood platelet mean volumeon 10-24-2021 Platelet mean volume (Bld) [Entitic vol] 12.3 fL 6.2-12.0 [facility] Work Phone: Determination of erythrocyte mean corpuscular volume (MCV)on 10-24-2021 MCV (RBC) [Entitic vol] 78.1 fL 81-99 [facility] Work Phone: Glucose Glucometer (BldC) [M ass/Vol]on 10-24-2021 Glucose [Mass/Vol] 112 mg/dL 74-106 [facility] Work Phone: Comment on above: MANAGEMENT OF PATIEN T CARE PER NURSING PROTOCOL Hematocrit Auto (Bld) [Volum e fraction]on 10-24-2021 Hematocrit (Bld) [Volume fraction] 34.2 % 37-47 [facility] Work Phone: [phone] Ketones Test strip Ql (U)on 10-24-2021 Ketones Ql (U) Negative Negative [facility] Work Phone: [phone] Laboratory - Chemistry and C hemistry - challengeon 10-24-2021 HCG ( test) Ql (U) Negative [facility] Work Phone: [phone] Comment on above: Very dilute urine sp ecimens, as indicated by a low specificgravity, may not contain lead customer service representative levels of hCG. If is still suspected, a first morning urinespecimen should be collected 48 hours later and tested. CO2 [Moles/Vol] 24.0 mmol/L 21.0-32.0 [facility] Work Phone: [phone] Urea nitrogen/Creatinine [Mass ratio] 13.5 mg/mg 10-20 [facility] Work Phone: [phone] Laboratory - Hematology and Cell countson 10-24-2021 Erythrocyte distribution width (RBC) [Entitic vol] 48.3 fL 35.1-43.9 [facility] Work Phone: [phone] Erythrocyte distribution width (RBC) [Ratio] 17.1 % 11.6-14.6 [facility] Work Phone: [phone] Immature granulocytes/100 WBC (Bld) 0.100 % 0.0-0.9 [facility] Work Phone: [phone] Comment on above: IG% - Immature Granu locytes (promyelocytes, myelocytes and metamyelocytes) > 1% indicates that a LEFT SHIFT is Present. MCH (RBC) [Entitic mass] 24.0 pg 27.0-32.0 [facility] Work Phone: [phone] Nucleated RBC/100 WBC (Bld) [Ratio] 0 % 0-5 [facility] Work Phone: [phone] MCHC Auto (RBC) [Mass/Vol]on 10-24-2021 MCHC (RBC) [Mass/Vol] 30.7 g/dL 32-36 [facility] Work Phone: Mucus LM Ql (Urine sed)on Mucus Ql (Urine sed) 0 SEEN /hpf [facility] Work Phone: Nitrite Test strip Ql (U)on 10-24-2021 Nitrite Ql (U) Negative Negative [facility] Work Phone: No Panel Informationon 10-24 Estimated Creatinine Clearance Calc 89.59 ml/min [facility] Work Phone: Estimated GFR (MDRD) Amer 97 mL/min >60 [facility] Work Phone: Comment on above: GFR Calc Estimated GFR (MDRD) Non-Af Amer 80 mL/min >60 [facility] Work Phone: Comment on above: Non- GFR Calc Platelets bldon 10-24-2021 Platelets (Bld) [#/Vol] 190 10*3/uL 150-450 [facility] Work Phone: Protein Test strip Ql (U)on 10-24-2021 Protein Ql (U) Negative Negative [facility] Work Phone: [phone] Serum or plasma calcium linda urement (mass/volume)on 10-24-2021 Calcium [Mass/Vol] 8.2 mg/dL 8.5-10.1 [facility] Work Phone: Serum or plasma creatinine m easurement (mass/volume)on 10-24-2021 Creatinine [Mass/Vol] 0.82 mg/dL 0.55-1.02 [facility] Work Phone: Comment on above: The validity of the calculated GFR & GFRAA in patients over 70 years has not been determined. Clinical correlation is essential. Serum or plasma urea nitroge n measurement (mass/volume)on 10-24-2021 Urea nitrogen [Mass/Vol] 11 mg/dL 7-18 [facility] Work Phone: Squamous epithelial cells de tection in urine sediment by light microscopyon 10-24-2021 Epithelial cells.squamous LM Ql (Urine sed) 0 SEEN /hpf 5-10 [facility] Work Phone: Thin prep Papanicolaou smear with manual screeningon 10-24-2021 Thin prep Papanicolaou smear with manual screening 6 5-15 [facility] Work Phone: Urine blood detectionon 10-08 RBC Ql (U) 250 /ul Negative [facility] Work Phone: RBC Ql (U) 0 SEEN /hpf 0-5 [facility] Work Phone: Urine clarityon 10-24-2021 Clarity (U) Clear Clear [facility] Work Phone: Urine color determinationon 10-24-2021 Color (U) Straw Yellow [facility] Work Phone: Urine glucose detectionon Glucose Ql (U) Normal mg/dl Normal [facility] Work Phone: Urine leukocyte esterase det ection by dipstickon 10-24-2021 Leukocyte esterase Test strip Ql (U) Negative Negative [facility] Work Phone: Urine pHon 10-24-2021 pH (U) 6.0 [pH] 5.0 - 8.0 [facility] Work Phone: Urine sediment bacteria coun t by microscopy (number/high power field)on 10-24-2021 Bacteria LM.HPF (Urine sed) [#/Area] 0 /[HPF] None Seen [facility] Work Phone: Urine specific gravity measu rementon 10-24-2021 Specific gravity (U) [Rel density] 1.010 1.002-1.030 [facility] Work Phone: Urobilinogen Auto test strip Ql (U)on 10-24-2021 Urobilinogen Ql (U) Normal mg/dl Normal [facility] Work Phone: FECAL OCCULT BLOOD TESTon Lower GI hemoglobin IA Ql (Stl) Negative Negative [facility] .Auto Diffon 07-19-2020 Ammonia (P) [Mass/Vol] 0.50 10 3/mcL Normal 0.09-1.40 [facility] ([place]) Comment on above: Performed By: #### C BC, ADIFF, ANEU, ABOM, BMP, GFR, ANTIS #### [address] [address] Basophils (Bld) [#/Vol] 0.00 10 3/mcL Normal 0.00-0.27 [facility] ([place]) Comment on above: Performed By: #### C BC, ADIFF, ANEU, ABOM, BMP, GFR, ANTIS #### [address] [address] Basophils/100 WBC (Bld) 0.6 % Normal 0.0-2.5 [facility] ([place]) Comment on above: Performed By: #### C BC, ADIFF, ANEU, ABOM, BMP, GFR, ANTIS #### [address] [address] Eosinophils (Bld) [#/Vol] 0.00 10 3/mcL Normal 0.00-0.65 [facility] ([place]) Comment on above: Performed By: #### C BC, ADIFF, ANEU, ABOM, BMP, GFR, ANTIS #### [address] [address] Eosinophils/100 WBC (Bld) 0.3 % Normal 0.0-6.0 [facility] ([place]) Comment on above: Performed By: #### C BC, ADIFF, ANEU, ABOM, BMP, GFR, ANTIS #### [address] [address] Lymphocytes (Bld) [#/Vol] 1.70 10 3/mcL Normal 0.90-4.32 [facility] ([place]) Comment on above: Performed By: #### C BC, ADIFF, ANEU, ABOM, BMP, GFR, ANTIS #### [address] [address] Lymphocytes/100 WBC (Bld) 22.5 % Normal 20.0-40.0 [facility] ([place]) Comment on above: Performed By: #### C BC, ADIFF, ANEU, ABOM, BMP, GFR, ANTIS #### [address] [address] Monocytes/100 WBC (Bld) 6.4 % Normal 2.0-13.0 [facility] ([place]) Comment on above: Performed By: #### C BC, ADIFF, ANEU, ABOM, BMP, GFR, ANTIS #### [address] [address] Neutrophils/100 WBC (Bld) 70.2 % Normal 50.0-75.0 [facility] ([place]) Comment on above: Performed By: #### C BC, ADIFF, ANEU, ABOM, BMP, GFR, ANTIS #### [address] [address] .GFRon 07-19-2020 GFR Non- >60 Normal [facility] ([place]) Comment on above: Result Comment: GFR Population [...] ADIFF, ANEU, ABOM, BMP, GFR, ANTIS #### [address] [address] GFR >60 Normal [facility] ([place]) Comment on above: Result Comment: GFR Population [...] ADIFF, ANEU, ABOM, BMP, GFR, ANTIS #### [address] [address] .NEUABSon 07-19-2020 Neutrophils (Bld) [#/Vol] 5.40 10 3/mcL Normal 2.25-8.10 [facility] ([place]) Comment on above: Performed By: #### C BC, ADIFF, ANEU, ABOM, BMP, GFR, ANTIS #### [place] [address] BMPon 07-19-2020 Calcium [Mass/Vol] 9.2 mg/dL Normal 8.7-10.4 [facility] ([place]) Comment on above: Result Comment: No te - New Reference Range in effect 19 Performed By: #### C BC, ADIFF, ANEU, ABOM, BMP, GFR, ANTIS #### [place] [address] Chloride [Moles/Vol] 109 mmol/L Normal 98-110 [facility] ([place]) Comment on above: Performed By: #### C BC, ADIFF, ANEU, ABOM, BMP, GFR, ANTIS #### [place] [id number] CO2 [Moles/Vol] 28 mmol/L Normal 22-32 [facility] ([place]) Comment on above: Performed By: #### C BC, ADIFF, ANEU, ABOM, BMP, GFR, ANTIS #### [place] [address] Creatinine [Mass/Vol] 0.86 mg/dL Normal 0.50-1.20 [facility] ([place]) Comment on above: Performed By: #### C BC, ADIFF, ANEU, ABOM, BMP, GFR, ANTIS #### [place] [id number] Electrolyte Balance 3.0 mEq/L Low 4.0-15.0 [facility] ([place]) Comment on above: Performed By: #### C BC, ADIFF, ANEU, ABOM, BMP, GFR, ANTIS #### [address] [address] Glucose [Mass/Vol] 98 mg/dL Normal 70-110 [facility] ([place]) Comment on above: Performed By: #### C BC, ADIFF, ANEU, ABOM, BMP, GFR, ANTIS #### [address] [address] Potassium [Moles/Vol] 4.3 mmol/L Normal 3.5-5.0 [facility] ([place]) Comment on above: Performed By: #### C BC, ADIFF, ANEU, ABOM, BMP, GFR, ANTIS #### [address] [address] Sodium [Moles/Vol] 140 mmol/L Normal 136-145 [facility] ([place]) Comment on above: Performed By: #### C BC, ADIFF, ANEU, ABOM, BMP, GFR, ANTIS #### [address] [address] Urea nitrogen [Mass/Vol] 15.0 mg/dL Normal 8.0-22.0 [facility] ([place]) Comment on above: Performed By: #### C BC, ADIFF, ANEU, ABOM, BMP, GFR, ANTIS #### [address] [address] Urea nitrogen/Creatinine [Mass ratio] 17.4 ratio Normal 10.0-22.0 [facility] ([place]) Comment on above: Performed By: #### C BC, ADIFF, ANEU, ABOM, BMP, GFR, ANTIS #### [address] [address] CBCon 07-19-2020 Erythrocyte distribution width (RBC) [Ratio] 14.6 % Normal 11.5-15.5 [facility] ([place]) Comment on above: Performed By: #### C BC, ADIFF, ANEU, ABOM, BMP, GFR, ANTIS #### [place] [id number] Hematocrit (Bld) [Volume fraction] 36.9 % Normal 34.0-46.0 [facility] ([place]) Comment on above: Performed By: #### C BC, ADIFF, ANEU, ABOM, BMP, GFR, ANTIS #### [place] [id number] Hemoglobin (Bld) [Mass/Vol] 12.3 G/dL Normal 12.0-16.0 [facility] ([place]) Comment on above: Performed By: #### C BC, ADIFF, ANEU, ABOM, BMP, GFR, ANTIS #### [place] [id number] MCH (RBC) [Entitic mass] 27.7 pg Normal 27.0-33.0 [facility] ([place]) Comment on above: Performed By: #### C BC, ADIFF, ANEU, ABOM, BMP, GFR, ANTIS #### [place] [id number] MCHC (RBC) [Mass/Vol] 33.3 G/dL Normal 32.0-36.0 [facility] ([place]) Comment on above: Performed By: #### C BC, ADIFF, ANEU, ABOM, BMP, GFR, ANTIS #### [place] [id number] MCV (RBC) [Entitic vol] 83.1 fL Normal 80.0-99.0 [facility] [facility] ([place]) Comment on above: Performed By: #### C BC, ADIFF, ANEU, ABOM, BMP, GFR, ANTIS #### [place] [id number] Platelet mean volume (Bld) [Entitic vol] 10.6 fL High 6.6-10.5 [facility] ([place]) Comment on above: Performed By: #### C BC, ADIFF, ANEU, ABOM, BMP, GFR, ANTIS #### [place] [id number] Platelets (Bld) [#/Vol] 157 10 3/mcL Normal 150-450 [facility] ([place]) Comment on above: Performed By: #### C BC, ADIFF, ANEU, ABOM, BMP, GFR, ANTIS #### [address] [address] RBC (Bld) [#/Vol] 4.43 10 6/mcL Normal 4.10-5.30 [facility] ([place]) Comment on above: Performed By: #### C BC, ADIFF, ANEU, ABOM, BMP, GFR, ANTIS #### [address] [address] WBC (Bld) [#/Vol] 7.70 10 3/mcL Normal 4.50-10.80 [facility] ([place]) Comment on above: Performed By: #### C BC, ADIFF, ANEU, ABOM, BMP, GFR, ANTIS #### [place] [address] MABOon 07-19-2020 ABO/Rh Interp Positive [facility] ([place]) Comment on above: Performed By: #### C BC, ADIFF, ANEU, ABOM, BMP, GFR, ANTIS #### [place] [id number] TABSon 07-19-2020 Antibody Screen Tango Negative Normal [facility] ([place]) Comment on above: Performed By: #### C BC, ADIFF, ANEU, ABOM, BMP, GFR, ANTIS #### [place] [address] Vital Signs Date Time Vital Sign Value Performing Clinician Facility 01-20-2025 05:41-0400 Body temperature 98 [degF] Dr. Mihir Glover MD Work Phone: [facility] 01-20-2025 05:41-0400 Diastolic blood pressure 73 mm[Hg] Dr. Mihir Glover MD Work Phone: [facility] 01-20-2025 05:41-0400 Heart rate 86 /min Dr. Mihir Glover MD Work Phone: [facility] 01-20-2025 05:41-0400 Respiratory rate 19 /min Dr. Mihir Glover MD Work Phone: [facility] 01-20-2025 05:41-0400 SaO2% (BldA) [Mass fraction] 95 % Dr. Mihir Glover MD Work Phone: [facility] 01-20-2025 05:41-0400 Systolic blood pressure 103 mm[Hg] Dr. Mihir Glover MD Work Phone: [facility] 01-20-2025 00:30-0400 Body height 175.[address] Mihir Glover MD Work Phone: [facility] 01-20-2025 00:30-0400 Body mass index (BMI) [Ratio] 33.5 kg/m2 Dr. Mihir Glover MD Work Phone: [facility] 01-20-2025 00:30-0400 Body weight 103.[address] Mihir Glover MD Work Phone: [facility] 01-14-2025 12:23-0400 Body temperature 97.3 [degF] Gordon Armstrong MD Work Phone: [facility] 01-14-2025 12:23-0400 Diastolic blood pressure 70 mm[Hg] Gordon Armstrong MD Work Phone: [facility] 01-14-2025 12:23-0400 Heart rate 95 /min Gordon Armstrong MD Work Phone: [facility] 01-14-2025 12:23-0400 Respiratory rate 18 /min Gorodn Armstrong MD Work Phone: [facility] 01-14-2025 12:23-0400 SaO2% (BldA) [Mass fraction] 93 % Gordon Armstrong MD Work Phone: [facility] 01-14-2025 12:23-0400 Systolic blood pressure 101 mm[Hg] Gordon Armstrong MD Work Phone: [facility] 01-14-2025 05:07-0400 Body mass index (BMI) [Ratio] 33.08 kg/m2 Gordon Armstrong MD Work Phone: [facility] 01-14-2025 05:07-0400 Body weight 101.61 kg Gorodn Armstrong MD Work Phone: [facility] 01-09-2025 16:30-0400 Body temperature 37.0 Gordon Armstrong MD Work Phone: [facility] 01-09-2025 16:30-0400 SaO2% (BldA) [Mass fraction] 100 % Gordon Armstrong MD Work Phone: [facility] 01-09-2025 16:23-0400 Body temperature 37.0 degrees Celsius [facility] Comment on above: Performed By: #### [id number] #### SANDRO Jain ([id number]) [facility] ([facility]) [address] [place] [address] 01-09-2025 16:23-0400 SaO2% (BldA) [Mass fraction] 100 % [facility] Comment on above: Performed By: #### [id number] #### SANDRO Jain ([id number]) [facility] ([facility]) [address] [place] [address] 01-09-2025 15:02-0400 Body temperature 37.0 Gordon Armstrong MD Work Phone: [facility] 01-09-2025 15:02-0400 SaO2% (BldA) [Mass fraction] 100 % Gordon Armstrong MD Work Phone: [facility] 01-09-2025 14:56-0400 Body temperature 37.0 degrees Celsius [facility] Comment on above: Performed By: #### [id number] #### SANDRO Jain ([id number]) [facility] ([facility]) [address] [place] [address] 01-09-2025 14:56-0400 SaO2% (BldA) [Mass fraction] 100 % [facility] Comment on above: Performed By: #### [id number] #### SANDRO Jain ([id number]) [facility] ([facility]) [address] [place] [address] 01-09-2025 12:40-0400 Body temperature 37.0 Gordon Armstrong MD Work Phone: [facility] 01-09-2025 12:40-0400 SaO2% (BldA) [Mass fraction] 100 % Gordon Armstrong MD Work Phone: [facility] 01-09-2025 12:36-0400 Body temperature 37.0 degrees Celsius [facility] Comment on above: Performed By: #### 1988- #### SANDRO Jain ([id number]) [facility] ([facility]) [address] [place] [address] 01-09-2025 12:36-0400 SaO2% (BldA) [Mass fraction] 100 % [facility] Comment on above: Performed By: #### 1987- #### SANDRO Jain ([id number]) [facility] ([facility]) [address] [place] [address] 01-09-2025 11:19-0400 Body temperature 37.0 Gordon Armstrong MD Work Phone: [facility] 01-09-2025 11:19-0400 SaO2% (BldA) [Mass fraction] 98 % Gordon Armstrong MD Work Phone: [facility] 01-09-2025 11:18-0400 Body temperature 37.0 degrees Celsius [facility] Comment on above: Result Comment: NOTE: Patient Results ar e Not Corrected for Temperature Performed By: #### 1 988-5 #### SANDRO Jain ([id number]) [facility] ([facility]) [address] [place] [address] 01-09-2025 11:18-0400 SaO2% (BldA) [Mass fraction] 98 % [facility] Comment on above: Performed By: #### 1988-5 #### SANDRO Jain ([id number]) [facility] ([facility]) [address] [place] [address] 01-09-2025 10:53-0400 Body temperature 37.0 Gordon Armstrong MD Work Phone: [facility] 01-09-2025 10:53-0400 SaO2% (BldA) [Mass fraction] 99 % Gordon Armstrong MD Work Phone: [facility] 01-09-2025 10:51-0400 Body temperature 37.0 degrees Celsius [facility] Comment on above: Result Comment: NOTE: Patient Results ar e Not Corrected for Temperature Performed By: #### 3 4529-8 #### SANDRO Jain ([id number]) [facility] ([facility]) [address] [place] [address] 01-09-2025 10:51-0400 SaO2% (BldA) [Mass fraction] 99 % [facility] Comment on above: Performed By: #### [id number] #### SANDRO Jain ([id number]) [facility] ([facility]) [address] [place] [address] 01-09-2025 10:08-0400 Body temperature 37.0 Gordon Armstrong MD Work Phone: [facility] 01-09-2025 10:08-0400 SaO2% (BldA) [Mass fraction] 99 % Gordon Armstrong MD Work Phone: [facility] 01-09-2025 10:07-0400 Body temperature 37.0 degrees Celsius [facility] Comment on above: Result Comment: NOTE: Patient Results ar e Not Corrected for Temperature Performed By: #### 3 [id number] ###Janie Jain ([id number]) [facility] ([facility]) [address] [place] [address] 01-09-2025 10:07-0400 SaO2% (BldA) [Mass fraction] 99 % [facility] Comment on above: Performed By: #### [id number] #### SANDRO Jain ([id number]) [facility] ([facility]) [address] [place] [address] 01-09-2025 09:42-0400 Body temperature 37.0 Gordon Armstrong MD Work Phone: [facility] 01-09-2025 09:42-0400 SaO2% (BldA) [Mass fraction] 100 % Gordon Armstrong MD Work Phone: [facility] 01-09-2025 09:41-0400 Body temperature 37.0 degrees Celsius [facility] Comment on above: Result Comment: NOTE: Patient Results ar e Not Corrected for Temperature Performed By: #### 3 [id number] #### SANDRO Jain ([id number]) [facility] ([facility]) [address] [place] [address] 01-09-2025 09:41-0400 SaO2% (BldA) [Mass fraction] 100 % [facility] Comment on above: Performed By: #### [id number] #### SANDRO Jain ([id number]) [facility] ([facility]) [address] [place] [address] 01-09-2025 09:22-0400 Body temperature 37.0 Gordon Armstrong MD Work Phone: [facility] 01-09-2025 09:21-0400 Body temperature 37.0 degrees Celsius [facility] Comment on above: Result Comment: NOTE: Patient Results ar e Not Corrected for Temperature Performed By: #### 5 [id number] #### SANDRO Jain ([id number]) [facility] ([facility]) [address] [place] [address] 01-09-2025 09:16-0400 Body temperature 37.0 Gordon Armstrong MD Work Phone: [facility] 01-09-2025 09:16-0400 SaO2% (BldA) [Mass fraction] 100 % Gordon Armstrong MD Work Phone: [facility] 01-09-2025 09:15-0400 Body temperature 37.0 degrees Celsius [facility] Comment on above: Result Comment: NOTE: Patient Results ar e Not Corrected for Temperature Performed By: #### 5 [id number] #### SANDRO Jain ([id number]) [facility] ([facility]) [address] [place] [address] 01-09-2025 09:15-0400 SaO2% (BldA) [Mass fraction] 100 % [facility] Comment on above: Performed By: #### [id number] #### SANDRO Jain ([id number]) [facility] ([facility]) [address] [place] [address] 01-09-2025 08:57-0400 Body temperature 37.0 Gordon Armstrong MD Work Phone: [facility] 01-09-2025 08:57-0400 SaO2% (BldA) [Mass fraction] 99 % Gordon Armstrong MD Work Phone: [facility] 01-09-2025 08:55-0400 Body temperature 37.0 degrees Celsius [facility] Comment on above: Result Comment: NOTE: Patient Results ar e Not Corrected for Temperature Performed By: #### 5 [id number] #### SANDRO Jain ([id number]) [facility] ([facility]) [address] [place] [address] 01-09-2025 08:55-0400 SaO2% (BldA) [Mass fraction] 99 % [facility] Comment on above: Performed By: #### [id number] #### SANDRO Jain ([id number]) [facility] ([facility]) [address] [place] [address] 01-09-2025 07:46-0400 Body temperature 37.0 Gordon Armstrong MD Work Phone: [facility] 01-09-2025 07:46-0400 SaO2% (BldA) [Mass fraction] 100 % Gordon Armstrong MD Work Phone: [facility] 01-09-2025 07:44-0400 Body temperature 37.0 degrees Celsius [facility] Comment on above: Result Comment: NOTE: Patient Results ar e Not Corrected for Temperature Performed By: #### 9 [id number] #### SANDRO Jain ([id number]) [facility] ([facility]) [address] [place] [address] 01-09-2025 07:44-0400 SaO2% (BldA) [Mass fraction] 100 % [facility] Comment on above: Performed By: #### [id number] #### SANDRO Jain ([id number]) [facility] ([facility]) [address] [place] [address] 01-09-2025 06:23-0400 Body height 175.3 cm Gordon Armstrong MD Work Phone: [facility] 01-05-2025 08:00-0400 Body height 176.5 cm Gordon Armstrong MD Work Phone: [facility] 01-05-2025 08:00-0400 Body mass index (BMI) [Ratio] 32.52 kg/m2 Gordon Armstrong MD Work Phone: [facility] 01-05-2025 08:00-0400 Body weight 101.33 kg Gordon Armstrong MD Work Phone: [facility] 01-05-2025 08:00-0400 Diastolic blood pressure 80 mm[Hg] Gordon Armstrong MD Work Phone: [facility] 01-05-2025 08:00-0400 Heart rate 75 /min Gordon Armstrong MD Work Phone: [facility] 01-05-2025 08:00-0400 Respiratory rate 16 /min Gordon Armstrong MD Work Phone: [facility] 01-05-2025 08:00-0400 SaO2% (BldA) [Mass fraction] 97 % Gordon Armstrong MD Work Phone: [facility] 01-05-2025 08:00-0400 Systolic blood pressure 117 mm[Hg] Gordon Armstrong MD Work Phone: [facility] 07-18-2023 18:06-0400 Body temperature 97.6 [degF] [facility] 07-18-2023 18:06-0400 Diastolic blood pressure 81 mm[Hg] [facility] 07-18-2023 18:06-0400 Heart rate 74 /min [facility] 07-18-2023 18:06-0400 Respiratory rate 16 /min [facility] 07-18-2023 18:06-0400 SaO2% (BldA) [Mass fraction] 97 % [facility] 07-18-2023 18:06-0400 Systolic blood pressure 123 mm[Hg] [facility] 07-18-2023 15:27-0400 Body height 176.53 cm [facility] 07-18-2023 15:27-0400 Body mass index (BMI) [Ratio] 32 kg/m2 [facility] 07-18-2023 15:27-0400 Body weight 99.69 kg [facility] 04-15-2023 13:0500 Body height 175.26 cm [facility] 04-15-2023 13:190500 Body mass index (BMI) [Ratio] 32.6 kg/m2 [facility] 04-15-2023 13:0500 Body temperature 98.1 [degF] [facility] 04-15-2023 13:0500 Body weight 100.27 kg [facility] 04-15-2023 13:19-0500 Diastolic blood pressure 80 mm[Hg] [facility] 04-15-2023 13:19-0500 Heart rate 78 /min [facility] 04-15-2023 13:19-0500 Respiratory rate 16 /min [facility] 04-15-2023 13:19-0500 SaO2% (BldA) [Mass fraction] 100 % [facility] 04-15-2023 13:19-0500 Systolic blood pressure 137 mm[Hg] [facility] 10-30-2022 11:14-0400 Body weight 99.34 kg Mihir Glover MD Work Phone: [facility] 10-30-2022 11:14-0400 Diastolic blood pressure 78 mm[Hg] Mihir Glover MD Work Phone: [facility] 10-30-2022 11:14-0400 Heart rate 70 /min Mihir Glover MD Work Phone: [facility] 10-30-2022 11:14-0400 Respiratory rate 14 /min Mihir Glover MD Work Phone: [facility] 10-30-2022 11:14-0400 SaO2% (BldA) [Mass fraction] 98 % Mihir Glover MD Work Phone: [facility] 10-30-2022 11:14-0400 Systolic blood pressure 124 mm[Hg] Mihir Glover MD Work Phone: [facility] 09-02-2022 11:53-0400 Body weight 98.88 kg Gill Older NURSERY MANAGER.DIRECTOR OF [employer]IAL [employer] MARKETING Work Phone: [facility] 09-02-2022 11:53-0400 Diastolic blood pressure 86 mm[Hg] Gill Older NURSERY MANAGER.DIRECTOR OF SOCIAL MEDIA MARKETING Work Phone: [facility] 09-02-2022 11:53-0400 Heart rate 68 /min Gill Older NURSERY MANAGER.DIRECTOR OF SOCIAL MED[employer] MARKETING Work Phone: [facility] 09-02-2022 11:53-0400 Respiratory rate 18 /min Gill Older NURSERY MANAGER.DIRECTOR OF SOCIAL MEDIA MARKETING Work Phone: [facility] 09-02-2022 11:53-0400 Systolic blood pressure 134 mm[Hg] Gill Linares NURSERY MANAGER.DIRECTOR OF SOCIAL [employer] MARKETING Work Phone: [facility] 06-16-2022 13:46-0500 Respiratory rate 16 /min [facility] 06-16-2022 10:42-0500 Body height 177.8 cm [facility] 06-16-2022 10:42-0500 Body mass index (BMI) [Ratio] 32 kg/m2 [facility] 06-16-2022 10:42-0500 Body temperature 97.8 [degF] [facility] 06-16-2022 10:42-0500 Body weight 101.15 kg [facility] 06-16-2022 10:42-0500 Diastolic blood pressure 91 mm[Hg] [facility] 06-16-2022 10:42-0500 Heart rate 79 /min [facility] 06-16-2022 10:42-0500 SaO2% (BldA) [Mass fraction] 98 % [facility] 06-16-2022 10:42-0500 Systolic blood pressure 141 mm[Hg] [facility] 12-30-2021 10:54-0400 Body weight 95.71 kg Flor Castro MD Work Phone: [facility] 12-30-2021 10:54-0400 Diastolic blood pressure 76 mm[Hg] Flor Castro MD Work Phone: [facility] 12-30-2021 10:54-0400 Systolic blood pressure 110 mm[Hg] Flor Castro MD Work Phone: [facility] 12-29-2021 14:58-0400 Body weight 95.98 kg Christine Jake NURSERY MANAGER.DIRECTOR OF [employer] MARKETING Work Phone: [facility] 12-29-2021 14:58-0400 Diastolic blood pressure 72 mm[Hg] Christine [place] NURSERY MANAGER.DIRECTOR OF SOC[employer] MARKETING Work Phone: [facility] 12-29-2021 14:58-0400 Systolic blood pressure 108 mm[Hg] Christine Jake NURSERY MANAGER.DIRECTOR OF [employer]IAL [employer] MARKETING Work Phone: [facility] 12-22-2021 13:10-0400 Body temperature 97.11 [degF] Treatment Wstr Work Phone: [facility] 12-22-2021 13:10-0400 Diastolic blood pressure 72 mm[Hg] Treatment Wstr Work Phone: [facility] 12-22-2021 13:10-0400 Heart rate 71 /min Treatment Wstr Work Phone: [facility] 12-22-2021 13:10-0400 Systolic blood pressure 140 mm[Hg] Treatment Wstr Work Phone: [facility] 12-18-2021 13:22-0400 Body temperature 97.81 [degF] Treatment Wstr Work Phone: [facility] 12-18-2021 13:22-0400 Diastolic blood pressure 73 mm[Hg] Treatment Wstr Work Phone: [facility] 12-18-2021 13:22-0400 Heart rate 72 /min Treatment Wstr Work Phone: [facility] 12-18-2021 13:22-0400 Systolic blood pressure 119 mm[Hg] Treatment Wstr Work Phone: [facility] 12-10-2021 13:37-0400 Body temperature 97.11 [degF] Treatment Wstr Work Phone: [facility] 12-10-2021 13:37-0400 Diastolic blood pressure 81 mm[Hg] Treatment Wstr Work Phone: [facility] 12-10-2021 13:37-0400 Heart rate 82 /min Treatment Wstr Work Phone: [facility] 12-10-2021 13:37-0400 Respiratory rate 20 /min Treatment Wstr Work Phone: [facility] 12-10-2021 13:37-0400 Systolic blood pressure 142 mm[Hg] Treatment Wstr Work Phone: [facility] 12-08-2021 10:15-0400 Diastolic blood pressure 83 mm[Hg] Treatment Wstr Work Phone: [facility] 12-08-2021 10:15-0400 Heart rate 72 /min Treatment Wstr Work Phone: [facility] 12-08-2021 10:15-0400 SaO2% (BldA) [Mass fraction] 100 % Treatment Wstr Work Phone: [facility] 12-08-2021 10:15-0400 Systolic blood pressure 134 mm[Hg] Treatment Wstr Work Phone: [facility] 12-08-2021 09:52-0400 Body temperature 97.59 [degF] Treatment [facility] Work Phone: [facility] 11-17-2021 07:10-0400 Body height 175.26 cm [facility] Work Phone: 11-17-2021 07:10-0400 Body mass index (BMI) [Ratio] 30.7 kg/m2 [facility] Work Phone: 11-17-2021 07:10-0400 Body temperature 97.4 [degF] [facility] Work Phone: 11-17-2021 07:10-0400 Body weight 94.34 kg [facility] Work Phone: 11-17-2021 07:10-0400 Diastolic blood pressure 94 mm[Hg] [facility] Work Phone: 11-17-2021 07:10-0400 Heart rate 106 /min [facility] Work Phone: 11-17-2021 07:10-0400 Respiratory rate 16 /min [facility] Work Phone: 11-17-2021 07:10-0400 SaO2% (BldA) [Mass fraction] 100 % [facility] Work Phone: 11-17-2021 07:10-0400 Systolic blood pressure 146 mm[Hg] [facility] Work Phone: 11-05-2021 10:07-0400 Body weight 95.71 kg Christine [place] NURSERY MANAGER.DIRECTOR OF [employer] MARKETING Work Phone: [facility] 11-05-2021 10:07-0400 Diastolic blood pressure 68 mm[Hg] Christine Jake NURSERY MANAGER.DIRECTOR OF [employer] MARKETING Work Phone: [facility] 11-05-2021 10:07-0400 Systolic blood pressure 118 mm[Hg] Christine [place] NURSERY MANAGER.DIRECTOR OF [employer] MARKETING Work Phone: [facility] 10-24-2021 14:25-0400 Heart rate 87 /min [facility] Work Phone: 10-24-2021 14:25-0400 Respiratory rate 16 /min [facility] Work Phone: 10-24-2021 14:25-0400 SaO2% (BldA) [Mass fraction] 97 % [facility] Work Phone: 10-24-2021 11:24-0400 Diastolic blood pressure 69 mm[Hg] [facility] Work Phone: 10-24-2021 11:24-0400 Systolic blood pressure 134 mm[Hg] [facility] Work Phone: 10-24-2021 08:54-0400 Body height 175.26 cm [facility] Work Phone: 10-24-2021 08:54-0400 Body mass index (BMI) [Ratio] 31.4 kg/m2 [facility] Work Phone: 10-24-2021 08:54-0400 Body temperature 97.2 [degF] [facility] Work Phone: 10-24-2021 08:54-0400 Body weight 96.7 kg [facility] Work Phone: Encounters Encounter Date Encounter Type Care Provider Facility Start: 01-27-2025 ambulatory Mihir Hi ty:[facility] Start: 01-25-2025 End: 01-25-2025 ambulatory MIHIR GLOVER Facility:[facility] Start: 01-25-2025 End: 01-25-2025 Telemedicine consultation with patient Sotero Martinez PharmD Work Phone: [facility] Comment on above: Mitral valve insuffi ciency, unspecified etiology Start: 01-25-2025 ambulatory [facility] Start: 01-22-2025 End: 01-22-2025 ambulatory MIHIR GLOVER Facility:[facility] Start: 01-20-2025 End: 01-20-2025 Emergency department patient visit Dr. Mihir Glover MD Work Phone: -Emergency Department Work Phone: Start: 01-19-[address] Samantha Glover MD Work Phone: -Physical Therapy Work Phone: Start: 01-19-2025 ambulatory LUZ ELENA BROOK Facility:[facility] Start: 01-18-2025 End: 01-18-2025 Telemedicine consultation with patient Sotero Martinez PharmD Work Phone: [facility] Comment on above: Mitral valve insuffi ciency, unspecified etiology Start: 01-18-2025 End: 01-18-2025 ambulatory [facility] Start: 01-16-2025 End: 01-16-2025 ambulatory MIHIR GLOVER Facility:[facility] Start: 01-09-2025 End: 01-09-2025 Subsequent hospital visit by physician Savanna Poole [facility]esthesia Joaquín [facility] Comment on above: Arrived Start: 01-09-2025 End: 01-09-2025 ambulatory TEE HERNANDEZ [facility] Start: 01-09-2025 End: 01-14-2025 Evaluation and management of inpatient Gordon Armstrong MD Work Phone: [facility] [place] [address] Start: 01-05-2025 End: 01-05-2025 Office outpatient new 45 minutes Gordon Armstrong MD Work Phone: [facility] [place] Comment on above: Mitral valve insuffi ciency, unspecified etiology Start: 01-05-2025 End: 01-05-2025 ambulatory GORDON ARMSTRONG [facility] Start: 12-25-2024 End: 12-25-2024 Subsequent hospital visit by physician [facility] X-Ray 1 [facility] [place] Comment on above: Mitral valve insuffi ciency, unspecified etiology Start: 12-25-2024 End: 12-25-2024 ambulatory GORDON ARMSTRONG [facility] Start: 12-25-2024 Evaluation and management of inpatient GORDON ARMSTRONG [facility] Start: 12-25-2024 End: 12-25-2024 ambulatory NO ASSIGNED PCP GENERIC PROVIDER [facility] Start: 12-25-2024 End: 12-25-2024 Encounter for other preprocedural examination NO ASSIGNED PCP GENERIC PROVIDER [facility] Start: 12-18-2024 End: 12-18-2024 ambulatory GORDON ARMSTRONG [facility] Start: 11-17-2024 End: 11-17-2024 Subsequent hospital visit by physician Outside Study [facility] [place] Comment on above: Arrived Start: 11-17-2024 End: 11-17-2024 ambulatory GORDON ARMSTRONG [facility] Start: 11-16-2024 End: 11-16-2024 ambulatory FREDRICK HUBBARD MD Facility: Start: 11-16-2024 End: 11-16-2024 SAME DAY STAY LIO BALBUENA MD [facility] Start: 11-13-2024 End: 11-13-[address] MIHIR GLOVER MD Facility:[facility] Start: 11-13-2024 End: 11-13-2024 Patient encounter procedure KIM DEJESUS NURSERY MANAGER-DIRECTOR OF SOCIAL MEDIA MARKETING [facility] Start: 10-31-2024 End: 10-31-2024 ambulatory RYAN RIVERA MD Facility:A Start: 10-31-2024 End: 10-31-2024 Patient encounter procedure RYAN RIVERA MD [facility] Start: 10-31-2024 End: 10-31-2024 ambulatory SWAPNA MANN MD Facility:A Start: 10-31-2024 End: 10-31-2024 Patient encounter procedure SWAPNA MANN MD [facility] Start: 09-08-2024 End: 09-08-2024 ambulatory SWAPNA MANN [facility] Start: 04-18-2024 End: 04-18-2024 ambulatory GILL KNIGHT Facility:[facility] Start: 02-08-2024 End: 02-08-2024 Emergency department patient visit Justin Olson Facility:[facility] Start: 10-19-2023 ambulatory SWAPNA MANN [facility] Start: 08-09-2023 ambulatory RAÓMN HUTCHISON [facility] Start: 07-18-2023 End: 07-18-2023 Emergency department patient visit [facility] Work Phone: Start: 04-15-2023 End: 04-15-2023 Emergency department patient visit [facility] Work Phone: Start: 10-30-2022 End: 10-30-2022 Patient encounter procedure Mihir Glover MD Work Phone: [facility] [place] Comment on above: Migraine with aura a nd without status migrainosus, not intractable (Primary Dx) Start: 09-02-2022 End: 09-02-2022 Patient encounter procedure Gill Linares APRN.CNP Work Phone: [facility] [place] Comment on above: Blood in stool (Prim abdirahman Dx); Constipation, unspecified constipation type; Anemia, unspecified type Start: 06-16-2022 End: 06-16-2022 Emergency department patient visit [facility] Start: 05-13-2022 ambulatory Mihir polanco MD Work Phone: [facility] Start: 02-16-2022 Telephone encounter Flor Castro MD Work Phone: OB/Gynecology Comment on above: Results Start: 02-06-2022 ambulatory Mihir polanco MD Work Phone: [facility] [place] Comment on above: Pain (Pain from abla [...] encounter procedure Flor Castro MD Work Phone: [facility] Start: 01-14-2022 Telephone encounter Flor Castro [...] bleeding Start: 12-22-2021 End: 12-22-2021 ambulatory Treatment Rm 7 [facility] Work Phone: Hematology/Oncology Comment on above: Iron deficiency anem ia due to chronic blood loss (Primary Dx) Start: 12-18-2021 End: 12-18-2021 ambulatory Treatment Rm 12 [facility] Work Phone: Hematology/Oncology Comment on above: Iron deficiency anem ia due to chronic blood loss (Primary Dx) Start: 12-16-2021 Telephone encounter Derrick barron DO Work Phone: Hematology/Oncology Comment on above: Appointment Cancelle d Start: 12-10-2021 End: 12-10-2021 ambulatory Treatment Rm 7 [facility] Work Phone: Hematology/Oncology Comment on above: Iron deficiency anem ia due to chronic blood loss (Primary Dx) Start: 12-09-2021 Telephone encounter Latasha alexander RN Work Phone: Hematology/Oncology Comment on above: Medication Problem ( Iron infusion) Start: 12-08-2021 End: 12-08-2021 ambulatory Treatment Rm 12 [facility] Work Phone: Hematology/Oncology Comment on above: Iron deficiency anem ia due to chronic blood loss (Primary Dx) Start: 12-03-2021 Telephone encounter Kristi michaels APRN.DIRECTOR OF SOCIAL MEDIA MARKETING Work Phone: OB/Gynecology Comment on above: Results Start: 12-01-2021 Telephone encounter Christine guerra APRN.DIRECTOR OF SOCIAL MEDIA MARKETING Work Phone: OB/Gynecology Comment on above: Appointment Start: 11-20-2021 MC Patient Msg [facility] Provider Internal [facility] Comment on above: Blood Management ref erral - orders for IV iron infusions Iron deficiency anem ia due to chronic blood loss Start: 11-18-2021 ambulatory Mariza Moose Herrera RN Interna l Medicine [facility] Comment on above: Iron deficiency anem ia due to chronic blood loss; Intestinal malabsorption, unspecified type Start: 11-17-2021 End: 11-17-2021 Emergency department patient visit [facility] Start: 11-13-2021 Telephone encounter Nazia ha MD Work Phone: OB/Gynecology Comment on above: Patient Update; Anem ia Start: 11-11-2021 Telephone encounter Tanisha oTmpkins MD Work Phone: OB/Gynecology Comment on above: Patient Question Start: 11-05-2021 End: 11-05-2021 Patient encounter procedure Christine Joseph APRN.DIRECTOR OF SOCIAL MEDIA MARKETING Work Phone: OB/Gynecology Comment on above: Abnormal uterine ble eding (AUB) (Primary Dx); Iron deficiency anemia due to chronic blood loss; Abnormal hemoglobin (Hgb) (HCC) Start: 10-24-2021 End: 10-24-2021 Emergency department patient visit [facility] Start: 04-02-2021 Orders Only Mihir polanco MD Work Phone: [facility] [place] Comment on above: Special screening fo r malignant neoplasms, colon Start: 09-20-2020 ambulatory [facility] Provider OB/Gynecol lam Comment on above: Test Results Start: 09-20-2020 E-mail encounter fro m caregiver [facility] Provider [facility] Start: 11-09-2018 E-mail encounter fro m caregiver Veena Padilla MA [facility] Start: 11-09-2018 Patient encounter procedure Veena Padilla [facility] [place] Comment on above: Appointment Start: 11-07-2018 E-mail encounter fro m caregiver Veena Padilla MA [facility] Start: 11-07-2018 Follow-up encounter Veena Padilla MA I [facility] [place] Comment on above: Follow up appointmen t Start: 08-29-2018 E-mail encounter fro m caregiver Veena Padilla MA [facility] Start: 08-29-2018 Follow-up encounter Veena Padilla MA [facility] [place] Comment on above: Follow up appointmen t Start: 12-28-2017 ambulatory [facility] Provider Neurology Comment on above: Confirming Sleep Terry dy Start: 12-28-2017 E-mail encounter fro m caregiver [facility] Provider [facility] Start: 12-13-2017 Chart abstracting [facility] Work Phone: Neurology Comment on above: Psg Check In (Adult) Start: 02-27-2015 ambulatory [facility] Provider [facility] Comment on above: Pre Visit Planning Tarik Chao Start: 02-27-2015 E-mail encounter fro m caregiver [facility] Provider [facility] Start: 08-24-2014 ambulatory [facility] Provider Medical Re [facility] Comment on above: Pre visit Planning Tarik Chao Start: 08-24-2014 E-mail encounter fro m caregiver [facility] Provider [facility] Start: 08-29-2009 ambulatory [facility] Provider Medical Re cords Comment on above: Your Personal Invita tion Start: 08-29-2009 E-mail encounter janes willis caregiver [facility] Provider [facility] Start: 12-07-2008 ambulatory [facility] Provider Medical Re cords Comment on above: RE: Request a Preven tive Care Procedure Start: 12-07-2008 E-mail encounter janes willis caregiver [facility] Provider [facility] Start: 08-24-2006 E-mail encounter janes willis caregiver [facility] Provider [facility] Start: 08-24-2006 Patient encounter procedure [facility] Provider Medical Records Comment on above: RE: Appointment Requ est form Procedures Date Procedure Procedure Detail Performing Clinician Start: 01-20-2025 Urnls dip stick/tablet reagent auto microscopy Dr. Mihir Glover MD Work Phone: Start: 01-20-[address] Mihir Glover MD Work Phone: Start: 01-14-2025 Radiologic exam chest 2 views Kristi Locke NURSERY MANAGER-DIRECTOR OF SOCIAL MEDIA MARKETING Work Phone: Start: 01-14-2025 Renal function panel Carlie Babra NURSERY MANAGER -DIRECTOR OF SOCIAL MEDIA MARKETING Work Phone: Start: 01-13-2025 PULSE OXIMETRY, SPOT Carlie Barba NURSERY MANAGER -DIRECTOR OF SOCIAL MEDIA MARKETING Work Phone: Start: 01-13-2025 2D TTE w or w/o fol w/con,fu Kristi Hammondager NURSERY MANAGER-DIRECTOR OF SOCIAL MEDIA MARKETING Work Phone: Start: 01-13-2025 PULSE OXIMETRY, SPOT Carlie Barba NURSERY MANAGER -DIRECTOR OF SOCIAL MEDIA MARKETING Work Phone: Start: 01-13-2025 Renal function panel Carlie Barba NURSERY MANAGER -DIRECTOR OF SOCIAL MEDIA MARKETING Work Phone: Start: 01-13-2025 PULSE OXIMETRY, SPOT Carlie Lizamao NURSERY MANAGER -DIRECTOR OF SOCIAL MEDIA MARKETING Work Phone: Start: 01-13-2025 PULSE OXIMETRY, SPOT Carlie Lizamao NURSERY MANAGER -DIRECTOR OF SOCIAL MEDIA MARKETING Work Phone: Start: 01-12-2025 Glucose quantitative blood xcpt reagent strip Gordon Armstrong MD Work Phone: Start: 01-12-2025 PULSE OXIMETRY, SPOT Carlie Bello Aulisio NURSERY MANAGER -DIRECTOR OF SOCIAL MEDIA MARKETING Work Phone: Start: 01-12-2025 Glucose quantitative blood xcpt reagent strip Gordon Armstrong MD Work Phone: Start: 01-12-2025 PULSE OXIMETRY, SPOT Carlie Bello Aulisio NURSERY MANAGER -DIRECTOR OF SOCIAL MEDIA MARKETING Work Phone: Start: 01-12-2025 Glucose quantitative blood xcpt reagent strip Gordon Armstrong MD Work Phone: Start: 01-12-2025 PULSE OXIMETRY, SPOT Carlie Bello Aulisio NURSERY MANAGER -DIRECTOR OF SOCIAL MEDIA MARKETING Work Phone: Start: 01-12-2025 Glucose quantitative blood xcpt reagent strip Gordon Armstrong MD Work Phone: Start: 01-12-2025 Radiologic exam chest 2 views Kristi C Manishager NURSERY MANAGER-DIRECTOR OF SOCIAL MEDIA MARKETING Work Phone: Start: 01-12-2025 Glucose quantitative blood xcpt reagent strip Gordon Armstrong MD Work Phone: Start: 01-12-2025 PULSE OXIMETRY, SPOT Carlie Bello Aulisio NURSERY MANAGER -DIRECTOR OF SOCIAL MEDIA MARKETING Work Phone: Start: 01-12-2025 Renal function panel Carlie Bello Aulisio NURSERY MANAGER -DIRECTOR OF SOCIAL MEDIA MARKETING Work Phone: Start: 01-12-2025 PULSE OXIMETRY, SPOT Carlie S Aulisio NURSERY MANAGER -DIRECTOR OF SOCIAL MEDIA MARKETING Work Phone: Start: 01-12-2025 PULSE OXIMETRY, SPOT Carlie S Aulisio NURSERY MANAGER -DIRECTOR OF SOCIAL MEDIA MARKETING Work Phone: Start: 01-11-2025 PULSE OXIMETRY, SPOT Carlie S Aulisio NURSERY MANAGER -DIRECTOR OF SOCIAL MEDIA MARKETING Work Phone: Start: 01-11-2025 Glucose quantitative blood xcpt reagent strip Gordon Armstrong MD Work Phone: Start: 01-11-2025 PULSE OXIMETRY, SPOT Carlie Shahlibijalo NURSERY MANAGER -DIRECTOR OF SOCIAL MEDIA MARKETING Work Phone: Start: 01-11-2025 Glucose quantitative blood xcpt reagent strip Gordon Armstrong MD Work Phone: Start: 01-11-2025 PULSE OXIMETRY, SPOT Carlie Lizamao NURSERY MANAGER -DIRECTOR OF SOCIAL MEDIA MARKETING Work Phone: Start: 01-11-2025 PULSE OXIMETRY, SPOT Carlie Bello Aulisio NURSERY MANAGER -DIRECTOR OF SOCIAL MEDIA MARKETING Work Phone: Start: 01-11-2025 End: 01-11-2025 Renal function panel Carlie Lizamao NURSERY MANAGER -DIRECTOR OF SOCIAL MEDIA MARKETING Work Phone: Start: 01-11-2025 PULSE OXIMETRY, SPOT Carlie Bello Aulisio NURSERY MANAGER -DIRECTOR OF SOCIAL MEDIA MARKETING Work Phone: Start: 01-11-2025 Radiologic exam chest single view Carlie Beltransio NURSERY MANAGER-DIRECTOR OF SOCIAL MEDIA MARKETING Work Phone: Start: 01-11-2025 PULSE OXIMETRY, SPOT Carlie Bello Aulisio NURSERY MANAGER -DIRECTOR OF SOCIAL MEDIA MARKETING Work Phone: Start: 01-10-2025 PULSE OXIMETRY, SPOT Carlie Bello Aulisio NURSERY MANAGER -DIRECTOR OF SOCIAL MEDIA MARKETING Work Phone: Start: 01-10-2025 Glucose quantitative blood xcpt reagent strip Gordon Armstrong MD Work Phone: Start: 01-10-2025 PULSE OXIMETRY, SPOT Carlie Bello Aulisio NURSERY MANAGER -DIRECTOR OF SOCIAL MEDIA MARKETING Work Phone: Start: 01-10-2025 PULSE OXIMETRY, SPOT Carlie Bello Aulisio NURSERY MANAGER -DIRECTOR OF SOCIAL MEDIA MARKETING Work Phone: Start: 01-10-2025 Glucose quantitative blood xcpt reagent strip Gordon Armstrong MD Work Phone: Start: 01-10-2025 PULSE OXIMETRY, SPOT Carlie Lizamao NURSERY MANAGER -DIRECTOR OF SOCIAL MEDIA MARKETING Work Phone: Start: 01-10-2025 Glucose quantitative blood xcpt reagent strip Gordon Armstrong MD Work Phone: Start: 01-10-2025 Radiologic exam chest single view Carlie Barba [facility] Work Phone: Start: 01-10-2025 Renal function panel Candi Reid [facility] Work Phone: Start: 01-10-2025 Glucose quantitative blood [...] & prog sing/dual/multi lead dfb Candi Reid [facility] Work Phone: Start: 01-09-2025 Radiologic exam chest [...] w/prb img acquisj i&r Tee J Rekolt NURSERY MANAGER-TECHNICAL SERVICE ENGINEER Work Phone: Start: 01-09-2025 PREPARE RBC Tee J Rekolt NURSERY MANAGER -TECHNICAL SERVICE ENGINEER Work Phone: Start: 01-09-2025 Blood typing serologic rh (d) Tee Grace Rekolt NURSERY MANAGER-TECHNICAL SERVICE ENGINEER Work Phone: Start: 01-09-2025 End: 01-09-2025 Valvuloplasty [...] MD Start: 04-02-2021 Mammography Christine Joseph APRN.C PEST CONTROLLER Work Phone: Start: 04-01-2021 FECAL OCCULT BLOOD TEST Mihir saleh MD Work Phone: Start: 08-21-2020 Adult depression screening assessment Christine Gipsoncalf DIRECTOR OF SOCIAL MEDIA MARKETING Work Phone: Start: 07-19-2020 Replacement of pulse [...] MD Comment on above: [facility] COOKY PACKER-D IR2262-58 SN [id number] RA lead: RV lead: [facility] 7122 Durata SN [id number] 05-15-08 Biventricular (COOKY PACKER-D ) defibrillator generator replacement performed by Dr. Naranjo on 07/19/2020 at [facility]. New COOKY PACKER-D generator is a [employer] Unify Assura model #3357-40C, serial #[id number]. Chronic RA lead is a [employer] Tendril STS model #2088TC/46cm, serial #[id number], implanted on 09/01/2012. Chronic RV lead is a [employer] Durata model #7122/65cm, serial #[id number], implanted on 05/15/2008. Chronic LV lead is a [employer] QuickFlex model #1156/75cm, serial #[id number], implanted on 05/15/2008. LV lead: [facility] [facility] [employer] 1156T SN [id number] RA lead: [facility] [facility] 2088TC SN [id number] Ligation of fallopia n tube SWAPNA MANN MD Plan of Treatment Date Care Activity Detail Author Start: 08-08-2033 Screening for malign ant neoplasm of colon [facility] Start: 08-08-2028 Screening for malign ant neoplasm of colon [facility] Start: 10-28-2027 DTaP/Tdap/Td Vaccine s (2 - Td or Tdap) DTaP/Tdap/Td Vaccines (2 - Td or Tdap) [facility] Start: 10-28-2027 Urine microalbumin profile DTAP,TDAP,TD (2 - Td or Tdap) [facility] Start: 10-28-2027 [facility] Start: 04-02-2026 LIPID SCREEN LIPID SCREEN [facility] Start: 01-14-2026 Diabetes mellitus screening Diabetes Screening [facility] Start: 09-23-2025 Zoster Vaccines (1 of 2) Zoste r Vaccines (1 of 2) [facility] Start: 09-23-2025 [facility] Start: 09-16-2025 HPV TESTING HPV TESTING [facility] Start: 09-16-2025 PAP TESTING PAP TESTING [facility] Start: 09-02-2025 DIABETES SCREEN DIABETES SCREEN [facility] Start: 03-09-2025 End: 03-09-2025 Patient encounter procedure 03/09/2025 9:15 AM EDT Office Visit [facility] [place] [address] [place] [id number] [place] [address] Department [place] [address] [facility] Start: 01-29-2025 End: 01-29-2025 Telemedicine consultation with patient 01/29/2025 2:40 PM EDT Telemedicine Clinical Support [facility] [place] [address] [place] [id number] [facility] Start: 01-20-2025 [facility] Start: 01-20-2025 X-ray of chest, PA a nd lateral views Chest PA and Lateral [facility] Start: 01-20-2025 XR Chest PA and Lateral [facility] Start: 01-20-2025 CT angiography of ch est with contrast CTA Chest W/WO Contrast [facility] Start: 01-20-2025 CTA Chest vessels WO and W contrast IV [facility] Start: 01-20-2025 [facility] Start: 01-18-2025 ambulatory [facility] 3 Start: 01-18-2025 End: 01-11-2026 CBC panel - Blood by Automated count [facility] Work Phone: Start: 01-18-2025 End: 01-11-2026 Magnesium [Mass/volume] in Serum or Plasma [facility] Work Phone: Start: 01-18-2025 End: 01-11-2026 Renal function 2000 panel - Serum or Plasma [facility] Work Phone: Start: 01-09-2025 End: 01-09-2025 Admission to same day surgery center 01/09/2025 6:45 AM EDT - 01/09/2025 12:30 PM EDT [place] [facility] [place] [address] [place] [address] [place] [address] Department of Surgery-Cardiac [place] [id number] REPAIR, MITRAL VALVE [72461 (CPT )] [facility] [place] Comment on above: REPAIR, MITRAL VALVE [64083 (CPT )] Start: 01-09-2025 End: 01-09-2025 Valvuloplasty mitral valve w/cardiac bypass REPAIR, MITRAL VALVE Mitral valve insufficiency, unspecified etiology 01/09/2025 6:45 AM EDT [facility] [place] Start: 01-09-2025 Subsequent hospital visit by physician 01/09/2025 5:15 AM EDT Hospital Encounter [facility] [place] [address] [place] [address] [place] [address] Department [place] [address] [facility] [place] Start: 01-08-2025 COVID-19 Vaccine ( season) COVID-19 Vaccine ( season) [facility] Start: 01-08-2025 Influenza vaccination U [facility] Start: 01-08-2025 [facility] Start: 01-05-2025 End: 01-05-2025 Patient encounter procedure 01/05/2025 8:15 AM EDT Office Visit [facility] [place] [address] [id number] [place] [address] [address] Department [place] [address] [facility] Start: 01-22-2024 Screening for malign ant neoplasm of breast [facility] Start: 01-09-2024 COVID-19 Vaccine ( season) COVID-19 Vaccine ( season) [facility] Start: 10-31-2023 ANNUAL PCP TEAM ASSOCIATE BROKER CLIFTON DISEASE VISIT ANNUAL PCP TEAM CHRONIC DISEASE VISIT [facility] Start: 09-03-2023 ANNUAL PCP TEAM ASSOCIATE BROKER CLIFTON DISEASE VISIT ANNUAL PCP TEAM CHRONIC DISEASE VISIT [facility] Start: 08-22-2023 DIABETES SCREEN DIABETES SCREEN [facility] Start: 07-18-2023 [facility] Start: 04-15-2023 [facility] Start: 04-15-2023 [facility] Start: 01-08-2023 Influenza vaccination INFLUENZ A (Season Ended) [facility] Start: 09-02-2022 End: 11-02-2022 Comprehensive metabolic 2000 panel - Serum or Plasma [facility] Work Phone: Comment on above: Expected: 09/02/2022 , Expires: 11/02/2022 Start: 09-02-2022 End: 11-02-2022 Ferritin [Mass/volume] in Serum or Plasma [facility] Work Phone: Comment on above: Expected: 09/02/2022 , Expires: 11/02/2022 Start: 09-02-2022 End: 11-02-2022 Iron and Iron binding capacity panel - Serum or Plasma [facility] Work Phone: Comment on above: Expected: 09/02/2022 , Expires: 11/02/2022 Start: 09-02-2022 End: 11-02-2022 Thyrotropin [Units/volume] in Serum or Plasma [facility] Work Phone: Comment on above: Expected: 09/02/2022 , Expires: 11/02/2022 Start: 05-10-2022 DEPRESSION ASSESSMENT DEPRESSION ASS ESSMENT [facility] Start: 04-02-2022 Mammography MAMMOGRAM [facility] Start: 04-01-2022 COLORECTAL CANCER SCREENING COLORECTAL CANCER SCREENING [facility] Start: 04-01-2022 FECAL OCCULT BLOOD FECAL OCCULT BLOO D [facility] Start: 03-26-2022 ANNUAL PCP TEAM ASSOCIATE BROKER CLIFTON DISEASE VISIT ANNUAL PCP TEAM CHRONIC DISEASE VISIT [facility] Start: 01-08-2022 Influenza vaccination [facility] Start: 12-29-2021 End: 02-28-2022 Ferritin [Mass/volume] in Serum or Plasma [facility] Work Phone: Comment on above: Expected: 12/29/2021 , Expires: 02/28/2022 Start: 12-29-2021 End: 02-28-2022 Iron and Iron binding capacity panel - Serum or Plasma [facility] Work Phone: Comment on above: Expected: 12/29/2021 , Expires: 02/28/2022 Start: 12-01-2021 End: 01-31-2022 CBC W Auto Differential panel - Blood CBC + DIFF Lab Routine Menorrhagia with irregular cycle Expected: 12/01/2021, Expires: 01/31/2022 [facility] Work Phone: Comment on above: Expected: 12/01/2021 , Expires: 01/31/2022 Start: 12-01-2021 End: 01-31-2022 Ferritin [Mass/volume] in Serum or Plasma FERRITIN BLD Lab Routine Menorrhagia with irregular cycle Expected: 12/01/2021, Expires: 01/31/2022 [facility] Work Phone: Comment on above: Expected: 12/01/2021 , Expires: 01/31/2022 Start: 12-01-2021 End: 01-31-2022 Iron and Iron binding capacity panel - Serum or Plasma IRON + TIBC Lab Routine Menorrhagia with irregular cycle Expected: 12/01/2021, Expires: 01/31/2022 [facility] Work Phone: Comment on above: Expected: 12/01/2021 , Expires: 01/31/2022 Start: 08-21-2021 Adult depression screening assessment DEPRESSION SCREENING [facility] Start: 05-10-2021 DEPRESSION ASSESSMENT DEPRESSION ASS ESSMENT [facility] Start: 09-23-2020 COLOGUARD (FIT-DNA) COLOGUARD (FIT-D NA) [facility] Start: 09-23-2020 Colonoscopy COLONOSCOPY [facility] Start: 09-23-[address] COLONOGRAPHY [facility] Start: 09-23-2020 SIGMOIDOSCOPY SIGMOIDOSCOPY [facility] Start: 06-12-2006 PNEUMOCOCCAL (2 - PCV) PNEUMOCOCCAL (2 - PCV) [facility] Start: 06-12-2006 Pneumococcal Vaccine : Pediatrics and At-Risk Adult Patients (2 of 2 - PCV) Pneumococcal Vaccine: Pediatrics and At-Risk Adult Patients (2 of 2 - PCV) [facility] Start: 06-12-2006 [facility] Start: 02-18-2006 HEPATITIS B (2 of 3 - 3-dose series) [facility] [facility] Start: 02-18-2006 Hepatitis B Vaccines (2 of 3 - 19+ 3-dose series) Hepatitis B Vaccines (2 of 3 - 19+ 3-dose series) [facility] Start: 02-18-2006 [facility] Start: 09-23-1996 Screening for malign ant neoplasm of cervix [facility] Start: 09-23-1993 Hepatitis C screening [facility] Start: 09-23-1993 SPIROMETRY SPIROMETRY [facility] Start: 09-23-1980 COVID-19 VACCINE (#1) COVID-19 VACCI NE (#1) [facility] Start: 09-23-1976 MMR Vaccines (1 of 1 - Standard series) MMR Vaccines (1 of 1 - Standard series) [facility] Start: 09-23-1976 [facility] Start: 03-26-1976 COVID-19 VACCINE (#1) COVID-19 VACCI NE (#1) [facility] Start: 1975 [facility] screening [facility] Start: 1975 Lipid panel [facility] Start: 1975 Screening for malign ant neoplasm of colon [facility] Start: 1975 Yearly Adult Physical Yearly Adult P hysical [facility] Start: 1975 [facility] End: 01-09-2025 Cardiac device check - Inpatient [facility] Work Phone: CBC panel - Blood by Automated count [facility] Work Phone: End: 01-10-2025 Determination of physical activity tolerance [facility] Work Phone: End: 01-09-2025 ECG 12 Lead [facility] Work Phone: End: 01-10-2025 Encourage deep breathing and coughing [facility] Work Phone: Endometrial bx w/wo endocervix bx w/o dilat spx ENDOMETRIAL BIOPSY Procedures Routine Abnormal uterine bleeding (AUB) Ordered: 12/30/2021 [facility] Work Phone: Comment on above: Ordered: 12/30/2021 Fungus identified in Unspecified specimen by Culture [facility] Work Phone: Glucose [Mass/volume ] in Serum or Plasma [facility] Service Area Work Phone: End: 01-10-2025 Incentive spirometry Instruct [facility] Work Phone: Magnesium [Mass/volu me] in Serum or Plasma [facility] Work Phone: End: 06-12-2023 DREA SCREENING DREA SCREENING Radiology Routine Encounter for screening mammogram for breast cancer 1 Occurrences starting 05/13/2022 until 06/12/2023 [facility] Work Phone: Comment on above: 1 Occurrences starti ng 05/13/2022 until 06/12/2023 Patient Education [facility] Work Phone: Patient referral [facility] Work Phone: Pulse oximetry, spot [facility] Work Phone: Renal function 2000 panel - Serum or Plasma [facility] Work Phone: Streptococcus pyogen es antigen assay Group A Streptococcus Rapid Screen [facility] Surgical pathology study [facility] Service Area Work Phone: [facility] Immunizations Immunization Date Immunization Notes Care Provider [facility] 06-07-2019 influenza, injectabl e, quadrivalent, contains preservative Christine [place] NURSERY MANAGER.DIRECTOR OF SOCIAL MEDIA MARKETING Work Phone: [facility] Work Phone: 06-07-2019 influenza virus vacc ine, unspecified formulation Outside Study [facility] Work Phone: 10-27-2017 tetanus toxoid, redu david diphtheria toxoid, and acellular pertussis vaccine, adsorbed Christine [place] NURSERY MANAGER.DIRECTOR OF SOCIAL MEDIA MARKETING Work Phone: [facility] Work Phone: 01-21-2006 hepatitis B vaccine, adult dosage Christine Jake NURSERY MANAGER.DIRECTOR OF SOCIAL MEDIA MARKETING Work Phone: [facility] Work Phone: 01-21-2006 hepatitis B vaccine, unspecified formulation Derrick Stuartluis PETERSON Work Phone: [facility] 06-12-2005 pneumococcal polysaccharide vaccine, 23 valent Christine [place] NURSERY MANAGER.DIRECTOR OF SOCIAL MEDIA MARKETING Work Phone: [facility] 06-12-2005 tetanus and diphther ia toxoids, adsorbed, preservative free, for adult use (2 Lf of tetanus toxoid and 2 Lf of diphtheria toxoid) Christinematthew GipsonJake LORRIE Work Phone: [facility] Payers Date Payer Category Payer Self-pay [id number] 2017 Medicaid (Managed Care) 1.2. [id number] 2017 Unknown [id number] 2014 Medicaid [employer] [id number] 2014-Present [phone] [address] [place] [address] Medicaid [id number]. [id number] 2007 Medicaid [id number]. [id number] 1975 Unknown [id number] 2.16.840.1.557377.3.579.2. 651 1975 Unknown [id number] 2.16.840.1.437488.3.579.2. 651 1975 Unknown [id number] 2.16.840.1.747688.3.579.2. 627 1975 Unknown [id number] 2.16.840.1.038209.3.579.2. 627 1975 Unknown [id number] 2.16.840.1.199802.3.579.2. 627 1975 Unknown [id number] 2.16.840.1.612760.3.579.2. 627 1975 Unknown [id number] 2.16.840.1.091147.3.579.2. 1244 1975 Unknown [id number] 2.16.840.1.738296.3.579.2. 1244 1975 Unknown [id number] 2.16.840.1.951982.3.579.2. 1244 1975 Unknown [id number] 2.840.1.671150.3.579.2. 1244 1975 Unknown [id number] 2..840.1.082741.3.579.2. 1244 1975 Unknown [id number] 2.840.1.510840.3.579.2. 1244 1975 Unknown [id number] 2.840.1.910793.3.579.2. 1244 1975 Unknown [id number] 2.0.1.427718.3.579.2. 1244 1975 Unknown [id number] 2.840.1.365983.3.579.2. 1244 1975 Unknown [id number] 2.840.1.835133.3.579.2. 1244 1975 Unknown [id number] 2.840.1.373898.3.579.2. 1244 1975 Unknown [id number] 2.840.1.631191.3.579.2. 124 Unknown [id number] Unknown [id number] 2.16.840.1.855319.3.579.2. 462 Unknown [id number] 2.16.840.1.830309.3.579.2. 462 Unknown [id number] 2.16.840.1.781348.3.579.2. 462 Unknown [id number] 2.16.840.1.766787.3.579.2. 462 Social History Date Type Detail Facility [facility] Work Phone: Start: 10-24-2021 End: 07-18-2023 Tobacco smoking status CAIS Unknown if ever smoked [facility] Start: 12-27-2018 None [facility] Start: 1975 Sex Assigned At Female [facility] Start: 12-01-2018 End: 01-18-2025 Tobacco smoking status NHIS Ex-smoker [facility] Work Phone: End: 05-10-2019 History of tobacco use Current smoker [facility] Work Phone: End: 05-10-2019 History of tobacco use Cigarette Smoker [facility] Work Phone: Start: 12-01-2018 End: 01-16-2025 Cigarettes smoked current (pack per day) - Reported 2 [facility] Start: 12-01-2018 End: 01-18-2025 Tobacco use and exposure Smokeless tobacco non-user [facility] Work Phone: Start: 03-26-2021 End: 09-02-2022 Alcohol intake Current drinker of alcohol (finding) [facility] Start: 06-05-2019 History SDOH Alcohol Frequency 1 [facility] Start: 06-05-2019 History SDOH Social Connections Phone 5 [facility] Start: 06-05-2019 History SDOH Social Connections Membership 2 [facility] Start: 06-05-2019 History SDOH Physica l Activity DPW 0 [facility] Start: 06-05-2019 History SDOH Stress 4 [facility] Start: 06-05-2019 History SDOH Financial 3 [facility] Start: 06-04-2019 Education 14 [facility] Start: 03-03-2021 End: 01-30-2022 Exposure to SARS-CoV-2 (event) Not sure [facility] Start: 10-26-2011 Tobacco smoking stat us CAIS Smokes tobacco daily [facility] Start: 08-24-2006 End: 05-12-2007 Alcohol intake Current non-drinker of alcohol (finding) [facility] Start: 10-30-2022 End: 01-25-2025 Alcohol intake Ex-drinker (finding) [facility] Sexual O[facility] Start: 09-04-2016 Sex Female (finding) [facility] Start: 1975 Sex assigned at Not on file [facility] Work Phone: Start: 12-25-2024 End: 01-16-2025 Gender identity Not on file [facility] Work Phone: Start: 11-28-2024 Tobacco Comment I'm not exactl y sure when I stopped smoking but it's been over 4 years [facility] Work Phone: Start: 11-28-2024 Alcohol Comment in the last 10 years I have not drank more than a couple drinks a year [facility] Work Phone: Start: 11-17-2024 Sex Female [facility] How hard is it for y ou to pay for the very basics like food, housing, medical care, and heating Not very hard [facility] In the past 12 month s, was there a time when you were not able to pay the mortgage or rent on time? No [facility] Work Phone: History of tobacco use Cigar Smoker [facility] Work Phone: Are you now , , , , never or living with a partner? Living with partner [facility] Work Phone: How often to you hav e a drink containing alcohol? Never [facility] Work Phone: How hard is it for y ou to pay for the very basics like food, housing, medical care, and heating Somewhat hard [facility] Work Phone: Do you feel stress - tense, restless, nervous, or anxious, or unable to sleep at night because your mind is troubled all the time - these days [OSQ] Rather much [facility] Work Phone: (I/We) worried claudia er (my/our) food would run out before (I/we) got money to buy more. Often true [facility] Work Phone: Start: 01-20-2025 Tobacco smoking stat us NHIS Never smoked tobacco (finding) [facility] NEGATED: Highlighted row [facility] Medical Equipment Procedure Code Equipment Code Equipment Origin al Text Equipment Identifier Dates [id number] Start: 01-09-2025 Functional Status Date Assessment Result Facility 01-09-2025 [place] - suicide s everity rating scale screener - recent [C-SSRS] [facility] Work Phone: 01-05-2025 Patient Health [facility] ionnaire 2 item (PHQ-2) [Reported] [facility] Work Phone: 01-05-2025 [place] - suicide s everity rating scale screener - recent [C-SSRS] [facility] Work Phone: Mental Status Date Assessment Result Facility 01-20-2025 Cognitive function Voice/Name [facility] Work Phone: 04-15-2023 Cognitive function Level Of Cons ciousness Awake;Alert;Appropriate;Follow s Commands [facility] Work Phone: 11-17-2021 Cognitive function Level Of Cons ciousness Awake;Alert;Appropriate;Follow s Commands [facility] Work Phone: Clinical Notes 09-01-2012 to 01-25-2025 Sotero Martinez, PharmD - 01/18/2025 8:00 AM SUKHWINDER Wu - 01/14/2025 10:07 AM SUKHWINDER Wu - 01/14/2025 9:37 AM Sheela Luna RN - 01/13/2025 12:39 PM EDT Note Date & Type Note Facility 01-25-2025 Note HNO ID: [id number] Author: VEENA CELESTE APRN.CNP Service: ? Author Type: Nurse Practitioner Type: Progress Notes Filed: 01/26/2025 18:54 Note Text: This is a 49 year old adult who presents today with: diarrhea Nurse triage note: Reason for Conversation Diarrhea Background Patient calls for diarrhea x 2 days that is now water and green in color. Nurse triage completed and protocol recommends see provider within 24 hours. No availability with dyad. Scheduled with available provider. Care advice reviewed with verbalized understanding. Initial Assessment 1. DIARRHEA SEVERITY: - MODERATE (SCALE 4-7): Increase of 4-6 stools daily over normal; moderate increase in ostomy output. 2. ONSET: Two days ago. 3. STOOL DESCRIPTION: Started off loose and now water. Patient reports it is green in color. No blood noted. 4. VOMITING: No vomiting but some nausea yesterday. 5. ABDOMEN PAIN: Intermittent cramping. 6. ABDOMEN PAIN SEVERITY: - MILD (1-3): Doesn't interfere with normal activities, abdomen soft and not tender to touch. TO - MODERATE (4-7): Interferes with normal activities or awakens from sleep, abdomen tender to touch. 7. ORAL INTAKE:No vomiting. 8. HYDRATION: No dry mouth [not just dry lips], too weak to stand, dizziness. Urinating per usual. Weight loss but expected d/t change in diet. 9. EXPOSURE: No travel, exposure, or spoiled food. 10. ANTIBIOTIC USE: Within the last 2 months but not recently. During hospital for mitral valve repair patient was on antibiotics but she doesn't recall what. 11. OTHER SYMPTOMS: No fever or blood in stool. HISTORY OF PRESENT ILLNESS: Diarrhea: - Onset post-surgery (2nd of this month- mitral valve repair, open heart) - Watery diarrhea began on the 7th; initially bright green, now dark green. - Episodes of explosive diarrhea associated with gas and abdominal cramping. - Bowel movements 4 times yesterday, described as gassy, watery. - One bowel movement today, described as mushy. - Michell denies hematochezia, melena, or mucus in stools. - Michell reports burning sensation during defecation - No known dietary triggers; maintains a balanced diet, avoids fast food and sweets now. The diarrhea is random and not dependent on intake - Recent WBC count elevated; Michell experienced a brief fever of 99.1?F the other day - Michell received multiple antibiotics intravenously during hospital stay beginning of this month Mitral Valve Repair: - Recent mitral valve repair surgery. - Michell's weight loss from 235 lbs to 217 lbs over 2 months. - Michell reports tachycardia and labile blood pressure; hypotension with increased activity. - Current BP readings: 136/92 mmHg (morning), 129/90 mmHg (today), 117/87 mmHg (today). - Michell is taking metoprolol 25 mg 1/2 tab (12.5mg) BID. - Michell is scheduled to start cardiac rehab next week. - Follow-up with radiation protection technician soon Asthma Controlled per patient, denies exacerbations recently PAST MEDICAL HISTORY: PAST MEDICAL HISTORY Diagnosis Date Abnormal uterine bleeding (AUB) 12/30/2021 Adenomyosis 12/30/2021 Asthma (HCC) Atrial tachycardia (HCC) 2009 Atrioventricular block, complete ([facility]) 07/31/2005 3rd degree AVB Bipolar affective ([facility]) Dr. 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 Last Assessment AND Plan: Underwent successful RA lead extraction and replacement yesterday, 09/01 CXR demonstrates no pneumothroax Device interrogation pending Headache(784.0) MIGRAINES WITH AURA Mitral regurgitation 11/29/2017 Panic disorder without agoraphobia 11/19/2011 Follows at [facility] Bipolar disorder possible, to be r/o (09/25/11) Primary cardiomyopathy (HCC) non ischemic PTSD (post-traumatic stress disorder) 11/19/2011 Follows at [facility] Rectal bleeding 09/04/2022 S/P MVR (mitral valve repair) 01/09/2025 Gordon Armstrong MD [facility] Schizoaffective disorder Severe mitral regurgitation 09/08/2024 Unspecified schizophrenia Schizophrenia PAST SURGICAL HISTORY Procedure Laterality Date DELIVERY ONLY TIMES THREE DANDC, DIAG AND/OR THERAPEUTIC 02/05/2022 HYSTEROSCOPY ENDOMETRIAL ABLATION 02/05/2022 Marcella ablation ICD GENERATOR CHANGE 07/19/2020 [facility] IMPLANTABLE CARDIOVERTER DEFIBRILLATOR 05/10/2009 defib/pacer- [facility], Dr Hardy LEFT AND RIGHT HEART CATH 11/16/2024 LIG/TRNSXJ FLP TUBE ABDL/VAG APPR UNI/BI PERMANENT PACEMAKER INSERTION 01/09/1992 TRANSESOPHAGEAL ECHOCARDIOGRAM 10/31/2024 VALVULOPLASTY MITRAL VALVE W/CARDIAC BYPASS 01/09/2025 32mm Simuplus Band, Median Sternotomy, Ligation of RABIA, Posterior pericardiotomy ALLERGIES Adhesive Tape-Silicones, Antihistamine [Diphenhydramine], Latex, Lisinopril, Morphine, Naproxen, P (more content not included)... [facility] 01-20-2025 Discharge summary [facility] 01-18-2025 History of Present illness Narrative [facility] Michell Ponce is a 49 y.o. female was referred to Clinical Pharmacy Team to complete a post-discharge medication optimization and monitoring visit. The patient was referred for multiple concerns while in [facility]. Today was our initial visit. Admission Date: 01/09 Discharge Date: 01/14 Referring Provider: Sandra Blanc AP* PCP: Mihir Glover MD - not with Subjective Allergies[1] [facility] [address] [place] [id number] [facility] [id number] [facility], [address] [facility] [address] Medication System Management: Affordability/Accessibility: Medicaid Adherence/Organization: no [...] daily 7. miralax daily prn [facility] Refills Needed: -none needed today Plan/To Do: -continue to log daily weights and BP's -nursing will continue with daily calls until next [facility] visit [facility] PAP Status: -n/a -has Medicaid Time Spent with Patient and [facility] Team - Ollie Blanc NP and Juanita Jean RN via video visit: 20 minutes Follow Up: 1 week Continue all meds under the continuation of care with the referring provider and clinical pharmacy team. Sotero Martinez PharmD Verbal consent to manage patient's drug [...] Palpitations Topiramate Palpitations documented in this encounter [facility] Work Phone: 01-16-2025 Note HNO ID: [id number] Author: MIHIR GLOVER MD Service: ? Author [...] today's visit. Michell had been following with [facility] for cardiomyopathy. She had been diagnosed [...] 02/05/2022 Marcella ablation ICD GENERATOR CHANGE 07/19/2020 [facility] IMPLANTABLE CARDIOVERTER DEFIBRILLATOR 05/10/2009 defib/pacer- [facility], [...] or rhinorrhea. Mouth/Thr (more content not included)... [facility] 01-14-2025 Hospital course Narrative Discharge Diagnosis Mitral [...] epicardial wires placed as patient has PPM/ COOKY PACKER-D - Telemetry at discharge paced rhythm - [...] to home with family assistance - Her radiation protection technician recently left the practice; she will follow up with the office to schedule an appointment with a new radiation protection technician - Prescriptions sent to meds to beds [...] of anesthesia over 10 years ago at [facility] in [place]. Once when I was under general anesthesia, [...] my device clinic at [facility] Atrial tachycardia Bipolar affective (Multi) Blood in stool 08/09/2023 Cardiomyopathy 90's to Mid I am not even sure if I still have this or not but I did when I was in heart failure Cardiomyopathy 01/02/2025 11/29/2017: TTE: LVEF 50%, left ventricle size upper limits of normal. Mild to moderate posterior directly MR. Mild TR and CT. RVSP 21 mmHg. Chest pain 04/21/2023 Chronic [...] child H/O: GI bleed 07/22/2023 Heart failure 2042-5509 Was in Heart Failure until I got the Hospital Director-d pacer combo Heart failure 8037-5108 Was in Heart Failure until I got the Hospital Director-d pacer combo Hemorrhoids 01/02/2025 Hiatal hernia 2023 History of anxiety state 01/02/2025 Low back pain, unspecified 03/01/2024 Metabolic disease 2000 Metabolic syndrome X Multiple premature ventricular complexes 01/02/2025 Neuromuscular disorder (Multi) 2021 periodic limb movement disorder Obesity Ongoing Obesity, Class I, BMI 30-34.9 08/21/2020 Pacemaker First Implanted in 1993 I think Current Hospital Director-d pacer Implanted 07/19/20 First Implanted at 16 now I have a squash centre manager-d pace combo Palpitations Ongoing I get these [...] moderate posterior directly MR. Mild TR and CT. RVSP 21 mmHg. PTSD (post-traumatic stress disorder) [...] [birth year], 98 3 children COLONOSCOPY 2023 Through [facility] COLPOSCOPY 2021 [facility] DILATION AND CURETTAGE OF UTERUS 2021 ENDOMETRIAL ABLATION 2021 HYSTEROSCOPY INSERT / REPLACE / REMOVE PACEMAKER 07/19/2020 Wires were implanted in 2008 and 2012 COOKY PACKER-d / Pacemaker Implant TUBAL LIGATION 1997 After last child was born in [birth year] UPPER GASTROINTESTINAL ENDOSCOPY 2023 Through [facility] ALLERGIES: Lisinopril, Naproxen, Adhesive tape-silicones, Antihistamines - [...] appointments. SUKHWINDER Dixon documented in this encounter [facility] Work Phone: 01-14-2025 History of Present illness Narrative Images from the original note [...] Normal heart sounds. Comments: Paced via PPM (COOKY PACKER-D) No epicardial wires Trace BLE edema Pulmonary: [...] - Optimize nutrition and electrolytes Rhythm: hx COOKY PACKER-D, hx afib - Tele: Paced rhythm - [...] ativan helps typically - Neurology signed off 01/13- likely complex migraine; [...] discharge needs SUKHWINDER Dixon Cardiac Surgery [facility] Team 01/14/2025 9:37 AM [1] acetaminophen, [...] ADOD today. Still no accepting HC agencies. [facility] sent additional HC referrals to review for acceptance. Will continue to follow. 1320-Still no accepting HC agency. [facility] updated medical team so made aware pt will need outpt therapy scripts. 1438-[facility] met with pt and made aware there is no accepting HC agencies. Pt agreeable with outpt PT/OT-[facility] gave pt outpt PT/OT scripts along with [...] Intake/Output Summary (Last 24 hours) at 01/13/2025 0903 Last data filed at 01/13/2025 0928 Gross [...] Normal heart sounds. Comments: Paced via PPM (COOKY PACKER-D); primarily ventricularly paced, but intermittently atrially paced [...] - Optimize nutrition and electrolytes Rhythm: hx COOKY PACKER-D, hx afib - Tele: Paced rhythm; ventricular [...] needs SUKHWINDER Crandall, AMANDA Cardiac Surgery [facility] Team 01/13/2025 9:47 AM [1] acetaminophen, [...] ondansetron OR ondansetron, oxygen 01/12/25 @1443 Transitional Loading Checker Note ADOD 01/14/25. Pt has an order placed for a FWW, ref placed to [facility] by Cande Salter RN TCC via [employer]. Still awaiting an accepting home care agency. [facility], [facility], [facility], [facility] and [facility] have all declined. Called into pt's room to introduce myself, role and to discuss discharge planning, no answer. Called pt's cell phone at [phone] and spoke with pt about discharge planning and home care choices. Pt stated she did not have a particular home care agency that she would like to use and was agreeable to a mass hc referral being sent out via [employer]. Mass Ref sent to 10 more agencies. Will continue to follow. 01/12/25 @1521 addendum [place] [facility] delivered to pt's room by Cande [...] Normal heart sounds. Comments: Paced via PPM (COOKY PACKER-D); primarily ventricularly paced, but intermittently atrially paced [...] - Optimize nutrition and electrolytes Rhythm: hx COOKY PACKER-D, hx afib - Tele: Paced rhythm; ventricular [...] transfuse as indicated Thrombocytopenia Recent Labs 01/12/25 0601/11/2575401/10/25 0416 01/09/25 1234 12/25/24 1018 PLT 84* [...] continue to assess discharge needs SUKHWINDER Crandall, JULIETATRAIN STATION SERVER Cardiac Surgery [facility] Team 01/12/2025 1:36 PM [1] acetaminophen, [...] team: s/p MVR; PT:OT Team Members Present: PEST CONTROLLER: MD: TCC: SW Status: inpatient Payor:Ranulfo Barriers:none Adod: 01/13 Care Transitions Progress Note: Per medical team patient s/p Mitral Valve repair Dispo: PT/OT recs low intensity - Would benefit from homecare RN for cardiac surgery carepath,. TCC to provide list of home care agencies to choose from. Occupational Therapy Evaluation Patient Name: Michell Ponce Today's Date: 01/11/2025 Room: [address] [place] [address] Time Calculation Start Time: 1409 Stop Time: [...] Bathroom Equipment: None Prior Function: Level of [place]: Independent with ADLs and functional transfers, Independent [...] LLE : Within Functional Limits Outcome Measures: [facility] Daily Activity Putting on and taking off [...] 3:34 PM Tran Robison OT Rehab Office: [phone] Images from the original note were not [...] Normal heart sounds. Comments: Paced via PPM (COOKY PACKER-D) No epicardial wires Pulmonary: Effort: Pulmonary effort [...] - Optimize nutrition and electrolytes Rhythm: hx COOKY PACKER-D, hx afib - Tele: Paced rhythm - [...] cardiac surgery hypervolemia - Replete electrolytes for hypokalemia/hypomagnesemia/hypophosphat emia as needed; K replaced 01/11 - Daily [...] discharge needs SUKHWINDER Dixon Cardiac Surgery SAMUEL [facility] Team 01/11/2025 2:34 PM [1] acetaminophen, [...] Therapy Evaluation Patient Name: Michell Ponce Department: [place] [address] Room: [address] [place] [address] Today's Date: 01/10/2025 Time Calculation Start Time: [...] Two level, Bed/bath upstairs Home Access: (2-3 LAKESHA) Bathroom Shower/Tub: Tub/shower unit Bathroom Equipment: None Prior Level of Function: Prior Function Per Pt/Caregiver Report Level of [place]: Independent with ADLs and functional transfers, Independent [...] LLE : Within Functional Limits Outcome Measures: [facility] Basic Mobility Turning from your back to [...] only Sitting: Supervision or set-up only Transfer Mkv-uv-Obovx: Supervision or set-up only Transfer Nkbhzi-xi-Gli: Supervision or set-up only Total Score: 22 [...] billable procedures. Critical care time: 39 Jones G Nannette, MD CTICU Progress Note Michell Wooten/[id number] Admit Date: 01/09/2025 Hospital Length of Stay: [...] cm H20-8 cm H20] [address] SUP: [5 cm H20] 5 cm H20 [...] 01/09 - dc Left brachial a-line placed 9/ - dc Brady - dc F: Family: will update at bedside when available A,B,C,D,E,F,G: reviewed Dispo: Transfer to T3 CTICU TEAM PHONE [phone] Cosigned by Jones Brunson MD at 01/10/2025 [...] their scheduled procedure and reviewed the patient's qyshg-of-vxhmealwr medications for accuracy. 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 Patient states they are taking #1 tablet of lorazepam 0.5mg daily if needed. L.F. 01/03/25 #15/15d per [facility]. Patient received furosemide 20mg and metoprolol succinate 25mg on 12/04/24, but has not started those medications yet. Waiting until after the procedure to re-evaluate with doctor to see if these medications are needed Michelle Demetri [facility] Please reach out via Secure Chat for questions documented in this encounter [facility] Work Phone: 01-13-2025 Miscellaneous Notes Brief General [...] time: 1318 Event end time: 1328 Location: [place] [address] [] Triage by phone or secure messaging Rapid response initiated by: [] Rapid response RN [] Family [] Nursing Social Science Instructor [] Physician [] RADAR auto page [] Sepsis auto-page [x] RN [] RT [] PEST CONTROLLER/PA [] Other: Primary reason for call: [x] [...] PERICARDIOTOMY Operative Note Date: 01/09/2025 OR Location: [facility] OR Name: Michell Ponce, : 1975, Age: 49 y.o., , Sex: female Diagnosis Pre-op Diagnosis * Mitral valve insufficiency, unspecified etiology [I34.0] Post-op Diagnosis * Mitral valve insufficiency, unspecified etiology [I34.0] Procedures MITRAL VALVE REPAIR W/32MM SIMUPLUS BAND, MEDIAN STERNOTOMY, LIGATION OF RABIA, POSTERIOR PERICARDIOTOMY 16044 - CT VALVULOPLASTY MITRAL VALVE W/CARDIAC BYPASS Median sternotomy, mitral valve repair with 32 mm annuloplasty band, ligation and excision of left atrial appendage, posterior pericardiotomy, removal of thrombus off of right atrial permanent pacemaker leads Surgeons * Gordon Armstrong - Primary Resident/Fellow/Other Administrator Pesticide: Surgeons and Role: * No surgeons found with a matching role * Staff: Antenna Installer: Kellie Bloom Person: Sandra Bloom Person: Sloan Class B Driver: Crispin Class B Driver: Natacha Jeong Antenna Installer: Ila Anesthesia Staff: Anesthesiologist: Yoseph Gutierrez DO TECHNICAL SERVICE ENGINEER: Tee Hernandez APRN-TECHNICAL SERVICE ENGINEER Environmental Health Manager: Janae Valencia Procedure Summary Anesthesia: General ASA: [...] 0400 Chest Tube Air Leak No 01/10/25 040 Patency Intervention Tip/tilt 01/10/25 040 Drainage Description Serosanguineous 01/10/25 040 Dressing Status Clean;Dry;Occlusive 01/10/25 040 Site Assessment Clean;Dry 01/10/25 040 Surrounding Skin Dry;Intact 01/10/25 040 Output (mL) 10 mL 01/10/25 0600 [REMOVED] Chest Tube 1 Right Pleural (Removed) Function -20 cm H2O 01/10/25 0400 Chest Tube Air Leak No 01/10/25 0400 Patency Intervention Tip/tilt 01/10/25 0400 Drainage Description Serosanguineous 01/10/25 040 Dressing Status Clean;Dry 01/10/25 040 Site Assessment Dry;Intact 01/10/25 040 Surrounding Skin Dry;Intact 01/10/25 0400 Output (mL) 15 mL 01/10/25 0600 [REMOVED] Chest Tube 2 Left Pleural (Removed) Function -20 cm H2O 01/10/25 0400 Chest Tube Air Leak No 01/10/25 040 Patency Intervention Tip/tilt 01/10/25 0400 Drainage Description Serosanguineous 01/10/25 040 Dressing Status Clean;Dry 01/10/25 0400 Site Assessment Clean;Dry 01/10/25 040 Surrounding Skin Dry;Intact 01/10/25 040 Output (mL) 40 mL 01/10/25 0600 [REMOVED] NG/OG/Feeding Tube Center mouth (Removed) Tube Status Low intermittent suction 01/09/25 122 Placement Verification Measurements 01/09/251219 Distal Tube Measurement (cm) 60 cm 01/09/25 122 Site Assessment Clean;Dry;Intact 01/09/25 122 Response To Intervention No resistance met 01/09/251219 Tube Securement Taped to endotracheal tube 01/09/25 122 [REMOVED] Urethral Catheter Non-latex;Temperature probe 14 Fr. (Removed) Site Assessment Clean;Skin intact 01/10/25399 Collection Container Standard drainage bag 01/10/25399 Securement Method Securing device (Describe) 01/10/25399 Reason for Continuing Urinary Catheterization accurate hourly measurement of urine volume in a critically ill patient that cannot be assessed by other volumes and urine collection strategies 01/10/25 040 Output (mL) 60 mL 01/10/25 06 [REMOVED] Y Chest Tube 1 and 2 1 Right Pleural 2 Left Pleural (Removed) Tourniquet Times: Implants: Implants Type Name Action Serial No. Other Cardiac Implant BAND, 32MM, SIMUPLUS FLEXIBLE - [id number] Implanted [id number] Findings: There were no pericardial adhesions or [...] hemodynamically stable. Condition: stable Task Performed by CHECK SCALER or Class B Driver: The CHECK SCALER assisted throughout the procedure and closed the [...] epicardial wires placed as patient has PPM/ COOKY PACKER-D - Telemetry at discharge paced rhythm - [...] to home with family assistance - Her radiation protection technician recently left the practice; she will follow up with the office to schedule an appointment with a new radiation protection technician - Prescriptions sent to meds to beds [...] of anesthesia over 10 years ago at [facility] in [place]. Once when I was under general anesthesia, [...] my device clinic at [facility] Atrial tachycardia Bipolar affective (Multi) Blood in stool 08/09/2023 Cardiomyopathy 90's to Mid 1999' I am not even sure if I still have this or not but I did when I was in heart failure Cardiomyopathy 01/02/2025 11/29/2017: TTE: LVEF 50%, left ventricle size upper limits of normal. Mild to moderate posterior directly MR. Mild TR and CT. RVSP 21 mmHg. Chest pain 04/21/2023 Chronic [...] child H/O: GI bleed 07/22/2023 Heart failure 6782-1252 Was in Heart Failure until I got the Hospital Director-d pacer combo Heart failure 8517-1841 Was in Heart Failure until I got the Hospital Director-d pacer combo Hemorrhoids 01/02/2025 Hiatal hernia 2023 History of anxiety state 01/02/2025 Low back pain, unspecified 03/01/2024 Metabolic disease 2000 Metabolic syndrome X Multiple premature ventricular complexes 01/02/2025 Neuromuscular disorder (Multi) 2021 periodic limb movement disorder Obesity Ongoing Obesity, Class I, BMI 30-34.9 08/21/2020 Pacemaker First Implanted in 1993 I think Current Hospital Director-d pacer Implanted 07/19/20 First Implanted at 16 now I have a squash centre manager-d pace combo Palpitations Ongoing I get these [...] moderate posterior directly MR. Mild TR and CT. RVSP 21 mmHg. PTSD (post-traumatic stress disorder) [...] , 98 3 children COLONOSCOPY 2023 Through [facility] COLPOSCOPY 2021 [facility] DILATION AND CURETTAGE OF UTERUS 2021 ENDOMETRIAL ABLATION 2021 HYSTEROSCOPY INSERT / REPLACE / REMOVE PACEMAKER 07/19/2020 Wires were implanted in 2008 and 2012 COOKY PACKER-d / Pacemaker Implant TUBAL LIGATION 1997 After last child was born in UPPER GASTROINTESTINAL ENDOSCOPY 2023 Through [facility] ALLERGIES: Lisinopril, Naproxen, Adhesive tape-silicones, Antihistamines - [...] injury from restraints (Restraint for Interference with Oncology Technician) 01/09/2025 1512 by Venessa Pena RN Outcome: Met Problem: Safety - Medical Restraint Goal: Free from restraint(s) (Restraint for Interference with Oncology Technician) 01/09/2025 1512 by Venessa Pena RN Outcome: [...] injury from restraints (Restraint for Interference with Oncology Technician) Outcome: Progressing Goal: Free from restraint(s) (Restraint for Interference with Oncology Technician) Outcome: Progressing Date: 01/09/2025 OR Location: [facility] OR Name: Michell Ponce, : 1975, Age: 49 y.o., , Sex: female Diagnosis Pre-op Diagnosis * Mitral valve insufficiency, unspecified etiology [I34.0] Post-op Diagnosis * Mitral valve insufficiency, unspecified etiology [I34.0] Procedures MITRAL VALVE REPAIR W/32MM SIMUPLUS BAND, MEDIAN STERNOTOMY, LIGATION OF RABIA, POSTERIOR PERICARDIOTOMY 56249 - CT VALVULOPLASTY MITRAL VALVE W/CARDIAC BYPASS MEDIAN STERNOTOMY [...] Surgeons * Gordon Armstrong - Primary Resident/Fellow/Other Administrator Pesticide: Surgeons and Role: * No surgeons found with a matching role * Jamin FERRIS Staff: Antenna Installer: Kellie Bloom Person: Sandra Bloom Person: Sloan Class B Driver: Crispin Class B Driver: Natacha Jeong Antenna Installer: Ila Anesthesia Staff: Anesthesiologist: Yoseph Gutierrez DO TECHNICAL SERVICE ENGINEER: Tee Hernandez APRN-TECHNICAL SERVICE ENGINEER Environmental Health Manager: Janae Valencia Procedure Summary Anesthesia: General ASA: [...] SURGICAL PATHOLOGY EXAM Gordon Armstrong MD 01/09/2025 6445 A : RIGHT ATRIAL LEAD THROMBUS ON PACEMAKER Tissue THROMBUS (CLOT) FUNGAL CULTURE/SMEAR Gordon Armstrong MD 01/09/2025 0683 Findings: MS Complications: None; patient tolerated the [...] 11:52 AM EDT documented in this encounter [facility] Work Phone: 01-12-2025 Consult note Formatting of [...] 5 Biceps 5 5 Triceps 5 5 Architectural Manager 5 5 Hip flexion 5 5 Quadriceps [...] lb 11.2 oz), SpO2 94%. Relevant Results Lamar Coma Scale Best Eye Response: Spontaneous Best Verbal Response: Oriented Best Motor Response: Follows commands Lamar Coma Scale Score: 15 I have personally reviewed the following imaging results: Imaging XR chest 2 views Result Date: 01/12/2025 1. Small left and trace right pleural effusions with bibasilar atelectasis. No pneumothorax. MACRO: None Signed by: Jose M Mann 01/12/2025 2:01 PM Dictation workstation: [id number] XR chest 1 view Result Date: 01/11/2025 1. No sizable pneumothorax status post removal of chest tubes. 2. Bibasilar atelectasis and suggestion of small left pleural effusion. Signed by: Lilly Rodriguez 01/11/2025 11:11 AM Dictation workstation: [id number] XR chest 1 view Result Date: 01/10/2025 [...] findings as stated by Aries Roldan D.O. (residential leasing manager). This study was interpreted at [place], [place]. MACRO: None Signed by: Niraj Bella 01/10/2025 3:09 PM Dictation workstation: [id number] Anesthesia Intraoperative Transesophageal Echocardiogram Result Date: 01/10/2025 CONCLUSIONS: 1. The left ventricular systolic function is normal with a visually estimated ejection fraction of 55-60%. 2. There is normal right ventricular global systolic function. 3. The left atrium is enlarged. 4. Severe mitral valve regurgitation. 5. Moderate tricuspid regurgitation visualized. XR chest 1 view Result Date: 01/09/2025 1. Perihilar and bibasilar bandlike opacifications likely lead customer service representative of atelectasis with small left and trace right pleural effusions. Findings compatible with expected postsurgical changes. 2. Endotracheal tube with distal tip projecting 3.9 cm from the katlyn. 3. Additional medical devices as above. I personally reviewed the images/study and I agree with the findings as stated by Aries Roldan D.O. (residential leasing manager). This study was interpreted at [place], [place]. MACRO: None Signed by: Niraj Bella 01/09/2025 2:13 PM Dictation workstation: [id number] Cardiology, Vascular, and Other Imaging Anesthesia Intraoperative Transesophageal Echocardiogram Result Date: 01/10/2025 [facility] - Dept of Anesthesiology [id number] [place] [address] and TRANSESOPHAGEAL ECHOCARDIOGRAM REPORT Patient Name: MICHELL WOOTEN Reading Physician: [id number] Gutierrez DO Study Date: 01/09/2025 Ordering Provider: [id number] TEE HERNANDEZ MRN/PID: [id number] Fellow: Nurse: Date of /Age: 5 1975 / 49 Electrical Wiring Lineman: years Gender assigned at F Additional Staff: : BSA / BMI: m2 / kg/m2 Blood Pressure: / Department Location: [place] Anesthesia Study Type: ANESTHESIA INTRAOPERATIVE JOAQUÍN Diagnosis/ICD: Nonrheumatic mitral (valve) insufficiency-I34.0 CPT Code: Color Doppler-95394; Doppler Limited-62890; JOAQUÍN Complete-18196 PHYSICIAN INTERPRETATION: Left Ventricle: The left ventricular [...] 58 % LV EF Reported: 58 % 11846 Yoseph Gutierrez DO Electronically signed on 01/10/2025 [...] of anesthesia over 10 years ago at [facility] in [place]. Once when I was under general anesthesia, [...] my device clinic at [facility] Atrial tachycardia Bipolar affective (Multi) Blood in stool 08/09/2023 Cardiomyopathy 's to Mid I am not even sure if I still have this or not but I did when I was in heart failure Cardiomyopathy 01/02/2025 11/29/2017: TTE: LVEF 50%, left ventricle size upper limits of normal. Mild to moderate posterior directly MR. Mild TR and CT. RVSP 21 mmHg. Chest pain 04/21/2023 Chronic [...] child H/O: GI bleed 07/22/2023 Heart failure 5395-5702 Was in Heart Failure until I got the Hospital Director-d pacer combo Heart failure 1638-8234 Was in Heart Failure until I got the Hospital Director-d pacer combo Hemorrhoids 01/02/2025 Hiatal hernia 2023 History of anxiety state 01/02/2025 Low back pain, unspecified 03/01/2024 Metabolic disease 2000 Metabolic syndrome X Multiple premature ventricular complexes 01/02/2025 Neuromuscular disorder (Multi) 2021 periodic limb movement disorder Obesity Ongoing Obesity, Class I, BMI 30-34.9 08/21/2020 Pacemaker First Implanted in 1993 I think Current Hospital Director-d pacer Implanted 07/19/20 First Implanted at 16 now I have a squash centre manager-d pace combo Palpitations Ongoing I get these [...] moderate posterior directly MR. Mild TR and CT. RVSP 21 mmHg. PTSD (post-traumatic stress disorder) [...] , 98 3 children COLONOSCOPY 2023 Through [facility] COLPOSCOPY 2021 [facility] DILATION AND CURETTAGE OF UTERUS 2021 ENDOMETRIAL ABLATION 2021 HYSTEROSCOPY INSERT / REPLACE / REMOVE PACEMAKER 07/19/2020 Wires were implanted in 2008 and 2012 COOKY PACKER-d / Pacemaker Implant TUBAL LIGATION 1997 After last child was born in UPPER GASTROINTESTINAL ENDOSCOPY 2023 Through [facility] [3] Social History Tobacco Use Smoking status: [...] She should follow-up with her neurologist in [place]. Tal Luna DO Attending Physician Department of Neurology documented in this encounter [facility] Work Phone: 01-11-2025 Hospital Discharge instructions Kristi Locke, NURSERY MANAGER-DIRECTOR OF SOCIAL MEDIA MARKETING - 01/11/2025 2:54 PM EDT CARDIAC SURGERY [...] an active infection Please notify your dentist/primary physician/radiation protection technician PRIOR to these types of procedures to [...] and deep breath. - No NSAIDs (common irvs-xfj-walsduu NSAIDs are ibuprofen/Motrin/Advil, naproxen/Naprosyn/Aleve) for 3 months after cardiac surgery; if NSAIDs needed after 3 months, clear use with radiation protection technician before starting. - If you have a [...] please call the cardiac surgery office at [phone] documented in this encounter [facility] Work Phone: 01-09-2025 History and physical note [...] Internal jugular (Active) Placement Date/Time: 01/09/25 (c) 08 Hand Hygiene Performed Prior to CVC Insertion: [...] CTICU care for now. CTICU TEAM PHONE [phone] Luke Mohamud MD [1] Past Medical History: Diagnosis Date Abnormal uterine bleeding 01/02/2025 Abnormal uterine bleeding (AUB) Adenomyosis 12/30/2021 Adverse effect of anesthesia over 10 years ago at [facility] in [place]. Once when I was under general anesthesia, [...] my device clinic at [facility] Atrial tachycardia Bipolar affective (Multi) Blood in stool 08/09/2023 Cardiomyopathy 's to Mid I am not even sure if I still have this or not but I did when I was in heart failure Cardiomyopathy 01/02/2025 11/29/2017: TTE: LVEF 50%, left ventricle size upper limits of normal. Mild to moderate posterior directly MR. Mild TR and CT. RVSP 21 mmHg. Chest pain 04/21/2023 Chronic [...] child H/O: GI bleed 07/22/2023 Heart failure 3047-1135 Was in Heart Failure until I got the Hospital Director-d pacer combo Heart failure 5161-8742 Was in Heart Failure until I got the Hospital Director-d pacer combo Hemorrhoids 01/02/2025 Hiatal hernia 2023 History of anxiety state 01/02/2025 Low back pain, unspecified 03/01/2024 Metabolic disease 2000 Metabolic syndrome X Multiple premature ventricular complexes 01/02/2025 Neuromuscular disorder (Multi) 2021 periodic limb movement disorder Obesity Ongoing Obesity, Class I, BMI 30-34.9 08/21/2020 Pacemaker First Implanted in 1993 I think Current Hospital Director-d pacer Implanted 07/19/20 First Implanted at 16 now I have a squash centre manager-d pace combo Palpitations Ongoing I get these [...] moderate posterior directly MR. Mild TR and CT. RVSP 21 mmHg. PTSD (post-traumatic stress disorder) [...] , 98 3 children COLONOSCOPY 2023 Through [facility] COLPOSCOPY 2021 [facility] DILATION AND CURETTAGE OF UTERUS 2021 ENDOMETRIAL ABLATION 2021 HYSTEROSCOPY INSERT / REPLACE / REMOVE PACEMAKER 07/19/2020 Wires were implanted in 2008 and 2012 COOKY PACKER-d / Pacemaker Implant TUBAL LIGATION 1997 After last child was born in UPPER GASTROINTESTINAL ENDOSCOPY 2023 Through [facility] [3] Medications Prior to Admission Medication Sig [...] to the H&P. Source Note - Reanna Freeman, NURSERY MANAGER-DIRECTOR OF SOCIAL MEDIA MARKETING - 12/25/2024 9:15 AM EDT Images from [...] Flowsheet Row Pre-Admission Testing from 12/25/2024 in [facility] Questionnaire Series Submission from 11/28/2024 in [facility] [place] OR with Generic Provider Valarie Can you [...] run a short distance? 0 filed at 12/25/2024 0937 0 filed [...] Flowsheet Row Pre-Admission Testing from 12/25/2024 in [facility] DVT Score (IF A SCORE IS NOT CALCULATING, MUST SELECT A BMI TO COMPLETE) 10 filed at 12/25/2024 1004 Medical Factors Swollen legs filed at 12/25/2024 1004 Surgical Factors Major surgery planned, lasting over 3 hours filed at 12/25/2024 1004 BMI (BMI MUST BE CHOSEN) 31-40 (Obesity) filed at 12/25/2024 1004 Modified Frailty Index No data to display [id number] Stroke Risk Points Current as of just now N/A 0 to 9 Points: Last Change: N/A The [id number] risk score (Lip NEDA, et al. 2009. 2010 [employer]) quantifies the risk of stroke for a patient with atrial fibrillation. For patients without atrial fibrillation or under the age of 18 this score appears as N/A. Higher score values generally indicate higher risk of stroke. This score is not applicable to this patient. Components are not calculated. Revised Cardiac Risk Index Flowsheet Row Pre-Admission Testing from 12/25/2024 in [facility] High-Risk Surgery (Intraperitoneal, Intrathoracic,Suprainguinal vascular) 1 filed at 12/25/2024 1005 History of ischemic heart disease (History of [place], History of positive exercuse test, Current chest [...] Flowsheet Row Pre-Admission Testing from 12/25/2024 in [facility] Smoking status 1 filed at 12/25/2024 [...] Flowsheet Row Pre-Admission Testing from 12/25/2024 in [facility] Questionnaire Series Submission from 11/28/2024 in [facility] [place] with Generic Provider Valarie Do you [...] Flowsheet Row Pre-Admission Testing from 12/25/2024 in [facility] Age Calculated Score 0 filed at [...] patient follows with cardiology, Dr. Mann at [place]. Per note, follow up after recent JOAQUÍN, [...] Patient has seen Luz Elena Bella at [facility], per note, I have offered [...] Yellow, Dark-Yellow Appearance, Urine Clear Clear Specific [place], Urine 1.010 1.005 - 1.035 pH, Urine [...] Yes; Where will this surgery/delivery be performed? [facility] What is the date of the surgery? [...] of anesthesia over 10 years ago at [facility] in [place]. 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 COVID-19 2021 Once Depression 1994 to ongoing Disease of thyroid gland 2022 enlarged thyroid and thyroid nodule Dizziness Ongoing I get dizziness sometimes Dysfunctional uterine bleeding 2021 had dnc and ablation for severe bleeding and anemia Easy bruising Ongoing Fibroid 2021 GERD (gastroesophageal reflux disease) 2023 I was diagnosed from endoscopy Gestational diabetes 1994 first child Heart failure 9791-4698 Was in Heart Failure until I got the Hospital Director-d pacer combo Heart failure 3263-0123 Was in Heart Failure until I got the Hospital Director-d pacer combo Hiatal hernia 2023 Metabolic disease 1999 Metabolic syndrome X Neuromuscular disorder (Multi) 2021 periodic limb movement disorder Obesity Ongoing Pacemaker First Implanted in 1993 I think Current Hospital Director-d pacer Implanted 07/19/20 First Implanted at 16 now I have a squash centre manager-d pace combo Palpitations Ongoing I get these [...] 97, 98 3 children COLONOSCOPY 2023 Through [facility] COLPOSCOPY 2021 [facility] DILATION AND CURETTAGE OF UTERUS 2021 ENDOMETRIAL ABLATION 2021 HYSTEROSCOPY INSERT / REPLACE / REMOVE PACEMAKER 07/19/2020 Wires were implanted in 2008 and 2012 COOKY PACKER-d / Pacemaker Implant TUBAL LIGATION 1997 After last child was born in [birth year] UPPER GASTROINTESTINAL ENDOSCOPY 2023 Through [facility] [3] Family History Problem Relation Name Age [...] not included. CPM/PAT Evaluation Name: Michell Wooten (Mcihell Wooten Kris) /Age: 509/24/1975/49 y.o. Visit Type: In-Person Chief [...] Flowsheet Row Pre-Admission Testing from 12/25/2024 in [facility] Questionnaire Series Submission from 11/28/2024 in [facility] [place] with Generic Provider Valarie Can you take care of yourself (eat, dress, bathe, or use toilet)? 2.75 filed at 12/25/202437 2.75 filed at 11/28/2024 1408 Can you walk indoors, such as around your house? 1.75 filed at 12/25/2024 0937 1.75 filed at 11/28/2024 1408 Can you walk a block or two on level ground? 2.75 filed at 12/25/202437 2.75 filed at 11/28/2024 1408 Can you [...] floors or carrying groceries? 3.5 filed at 12/25/202437 3.5 filed at 11/28/2024 1408 Can you do heavy work around the house like scrubbing floors or lifting and moving heavy furniture? 0 filed at 12/25/202437 0 filed at 11/28/2024 1408 Can you do yard work like raking leaves, weeding or pushing a mower? 0 filed at 12/25/202437 0 filed at 11/28/2024 1408 Can you have sexual relations? 0 filed at 12/25/202437 0 filed at 11/28/2024 1408 Can you participate in moderate recreational activities like golf, bowling, dancing, doubles tennis or throwing a baseball or football? 0 filed at 12/25/202437 0 filed at 11/28/2024 1408 Can you participate in strenous sports like swimming, singles tennis, football, basketball, or skiing? 0 filed at 12/25/2024 0937 0 filed at 11/28/2024 1408 DASI SCORE 18.95 filed at 12/25/202437 18.95 filed at 11/28/2024 1408 METS Score (Will be calculated only when all the questions are answered) 5.1 filed at 12/25/202437 5.1 filed at 11/28/2024 1408 Caprini DVT Assessment Flowsheet Row Pre-Admission Testing from 12/25/2024 in [facility] DVT Score (IF A SCORE IS NOT CALCULATING, MUST SELECT A BMI TO COMPLETE) 10 filed at 12/25/2024 1004 Medical Factors Swollen legs filed at 12/25/2024 1004 Surgical Factors Major surgery planned, lasting over 3 hours filed at 12/25/2024 1004 BMI (BMI MUST BE CHOSEN) 31-40 (Obesity) filed at 12/25/2024 1004 Modified Frailty Index No data to display [id number] Stroke Risk Points Current as of just now N/A 0 to 9 Points: Last Change: N/A The [id number]-LDDd risk score (Lip NEDA, et al. 2009. 2010 [employer]) quantifies the risk of stroke for a patient with atrial fibrillation. For patients without atrial fibrillation or under the age of 18 this score appears as N/A. Higher score values generally indicate higher risk of stroke. This score is not applicable to this patient. Components are not calculated. Revised Cardiac Risk Index Flowsheet Row Pre-Admission Testing from 12/25/2024 in [facility] High-Risk Surgery (Intraperitoneal, Intrathoracic,Suprainguinal vascular) 1 filed at 12/25/2024 1005 History of ischemic heart disease (History of LA, History of positive exercuse test, Current chest [...] Flowsheet Row Pre-Admission Testing from 12/25/2024 in [facility] Smoking status 1 filed at 12/25/2024 [...] Flowsheet Row Pre-Admission Testing from 12/25/2024 in [facility] Questionnaire Series Submission from 11/28/2024 in [facility] [place] with Generic Provider Myclaquitat Do you snore loudly? 0 filed at [...] Flowsheet Row Pre-Admission Testing from 12/25/2024 in [facility] Age Calculated Score 0 filed at [...] patient follows with cardiology, Dr. Mann at [facility]. Per note, follow up after recent JOAQUÍN, [...] Patient has seen Luz Elena Bella at [facility], per note, I have offered [...] Yellow, Dark-Yellow Appearance, Urine Clear Clear Specific [place], Urine 1.010 1.005 - 1.035 pH, Urine [...] Yes; Where will this surgery/delivery be performed? [facility] What is the date of the surgery? [...] of anesthesia over 10 years ago at [facility] in [place]. Once when I was under general anesthesia, [...] my device clinic at [facility] Atrial tachycardia Bipolar affective (Multi) Cardiomyopathy ' to Mid I am not even sure [...] Gestational diabetes 1994 first child Heart failure 0784-3657 Was in Heart Failure until I got the Hospital Director-d pacer combo Heart failure 9913-0824 Was in Heart Failure until I got the Hospital Director-d pacer combo Hiatal hernia 2023 Metabolic disease 1999 Metabolic syndrome X Neuromuscular disorder (Multi) 2021 periodic limb movement disorder Obesity Ongoing Pacemaker First Implanted in 1993 I think Current Hospital Director-d pacer Implanted 07/19/20 First Implanted at 16 now I have a squash centre manager-d pace combo Palpitations Ongoing I get these [...] , 98 3 children COLONOSCOPY 2023 Through [facility] COLPOSCOPY 2021 [facility] DILATION AND CURETTAGE OF UTERUS 2021 ENDOMETRIAL ABLATION 2021 HYSTEROSCOPY INSERT / REPLACE / REMOVE PACEMAKER 07/19/2020 Wires were implanted in 2008 and 2012 COOKY PACKER-d / Pacemaker Implant TUBAL LIGATION 1997 After last child was born in 98 UPPER GASTROINTESTINAL ENDOSCOPY 2023 Through [facility] [3] Family History Problem Relation Name Age of Onset Alcohol abuse Father Curt Rebolledo Sr. 40 - 49 Heart disease Father Curt Rebolledo Sr. 50 - 59 Cancer Mother Caty Asher 40 - 49 Hypertension Mother Caty sAher 40 - 49 Anesthesia problems Mother Caty Asher 40 - 49 Asthma Mother Caty Asher 30 - 39 Motion Sickness Mother Caty Asher 20 - 29 Arthritis Maternal Grandmother Michell Willis Latonia 60 - 69 [4] Allergies Allergen Reactions Lisinopril Other and Unknown Neck pain Naproxen Other PALPITATIONS Adhesive Tape-Silicones Hives Antihistamines - Ethylenediamine Other Diphenhydramine Other Causes Panic Attacks Morphine Hives and Itching Sertraline Palpitations Topiramate Palpitations documented in this encounter [facility] Work Phone: 01-05-2025 History of Present illness Narrative Referral from Dr. Balbuena. Michell [...] wishes to proceed. documented in this encounter [facility] Work Phone: 11-28-2024 Note . MICRO - [...] Locations *1: This test was performed at: [facility], [address] [place] [address], [facility] , [facility] 11-16-2024 Hospital Discharge instructions Patient Education 11/16/2024 09:23:02 3- Heart Cath/PCI radial/groin (02/2018) (CUSTOM) () HEART CATHETERIZATION/PCI (Radial/Groin) Discharge Instructions DIET Drink [...] Document Reviewed: 04/27/2014 ExitCare Patient Information 2015 [employer]. This information is not intended to replace [...] including vitamins, herbs, eye drops, creams, and kbqy-isw-hrgxrei medicines. Use of steroids (by mouth or [...] 01/19/2002 Document Revised: 04/08/2018 Document Reviewed: 08/15/2016 [employer] Patient Education 2020 [employer]. Follow Up Care 11/02/2024 11:14:59 With:KIM DEJESUS Address: [address] [facility] [address] [facility] [place] [address]- [phone] When:12/04/2024 11:00:00 [facility] 11-16-2024 Summary of episode note Discharge Instructions Thank you for allowing [facility] to assist you with your healthcare needs. The following is important discharge information regarding your hospital visit. Your Care Team MIHIR GLOVER MD What to do next Scheduled Follow-Up Appointments Appointment Type When With Where Contact Information StatusCV OV 12/04/2024 11:00 AM EDT KIM DEJESUS [facility] CVC [facility] Confirmed Follow Up Appointments Follow Up with KIM DEJESUS When:12/04/2024 11:00 AM EDT Where:[address] [facility] [address] [facility] [place] [address]- [phone] The Following Activity and Diet Have Been [...] Document Reviewed: 04/27/2014 ExitCare Patient Information 2015 [employer]. This information is not intended to replace [...] including vitamins, herbs, eye drops, creams, and qhsb-cln-ffepmqd medicines. Use of steroids (by mouth or [...] 01/19/2002 Document Revised: 04/08/2018 Document Reviewed: 08/15/2016 [employer] Patient Education 2020 [employer] Additional Information VACCINATE! IT SAVES LIVES! Members of the community who have not yet received the COVID-19 vaccine and would like to receive it can visit one of [facility] vaccine clinics. There are many vaccine clinic locations within the [facility]. For locations and available times, please visit https://gettheshot.coronavirus.[place].gov /. It is important to note that some COVID mobile vaccine clinics are held outdoors and may be canceled in rainy or stormy conditions. To learn more about pediatric vaccinations (ages 5-11), we invite you to visit the [facility] webpage. https://www.[email or web address].org/pages/20 29-Edyra-Ymgzrrtdgpd-Poyycgwnkq-Jgacn-J uestions.html To learn more about the COVID-19 vaccine, we invite you to visit the CDC website for a list of frequently asked questions.https://www.cdc.gov/coronavir us/2019-ncov/vaccines/faq.html [facility] Patient Portal Access Instructions: Stay connected with your healthcare team and access your personal medical information anytime with the [facility] Patient Portal. Please follow the directions below to create your [employer] [facility] account: 1.Access the email account you provided upon registration to the hospital/physician office.2.Look for an invitation email from [facility].3.Open the email and access the invitation link: Accept Invitation to [facility].4.Fill in the required mota to create your account. To access your account, visit [employer]. Click the blue button labeled Access Patient [...] you will allow to register on the [facility] Patient Portal for access to your information. You can also access the [facility] Patient Portal on the [facility] [employer] samuel. Simply click on Patient Portal and then log into your account. If you would like to receive a full copy of your medical records, please contact the [facility] Medical Records Department by calling [phone], Wednesday through Wednesday between 8 a.m. and [...] Call your local pharmacy or go to http://bit.ly/0N1Rw1r to find one close to you.3.Make use of household items: Use cat litter or old coffee grounds to dispose medications if other options are not available. Mix your drugs with these household products, seal them in an airtight container and throw it into the garbage. Call [facility]: [phone] to be sure your drugs can be [...] Materials 3- Heart Cath/PCI radial/groin (02/2018) (CUSTOM) (98215) Moderate Conscious Sedation, Adult Medication Leaflets My discharge plan and instructions have been reviewed and explained to me and INICK VIETTA M understand my current condition and have read and understand these discharge instructions. I have received a written copy of the plan/instructions. If I have questions, I am aware that I should contact my doctor. Patient/Toaster Operator Signature: Date/Time: Relationship to Patient: Witness Name/Signature: Date/Time: [facility] 11-16-2024 Discharge summary Date of Service 11/16/2024 Discharge Diagnosis 1. Severe MR 2. Heart failure with improved EF 3. Status post COOKY PACKER-D 4. Sleep apnea 5. History of congenital complete heart block Hospital Course A 49-year-old female with PMH of severe MR [flail A2, prolapse A3], heart failure with improved EF [50 to 55%; 06/2024], status post COOKY PACKER-D, history of congenital complete heart block and [...] with KIM DEJESUS When:12/04/2024 11:00 AM EDT Where:[address] [place] [address] [address] [facility] [place] [address]- [phone] Follow Up Appointments No qualifying data available. [...] RAMYA LANE MD on 11/16/2024 08:28 AM [facility] 11-16-2024 Note Exam Date Time Procedure Performing Provider Status 11/16/24 7:58 AM Cardiac Catheterization -CV LEAH BALBUENA MD; Auth (Verified) [id number] Note. MICRO - Microbiology PROCEDURE: Blood Culture [...] Locations *1: This test was performed at: [facility], [address] [place], [place] [address], [place], [address]- , [facility]06-24-2025 Note* Exam Date Time Procedure Performing Provider Status 10/31/24 11:50 AM Transesophageal Echo cardiogram - CV MORGAN MCKOY MD; Auth (Verified) [id number] NoteHNO ID: [id number] Author: GILL KNIGHT APRN.DIRECTOR OF SOCIAL MEDIA MARKETING Service: ? Author Type: Nurse Practitioner Type: [...] 02/05/2022 Marcella ablation ICD GENERATOR CHANGE 07/19/2020 [facility] IMPLANTABLE CARDIOVERTER DEFIBRILLATOR 05/10/2009 defib/pacer- [facility], [...] improve or sooner if worsening. Gill Knight APRN.DIRECTOR OF SOCIAL MEDIA MARKETING Prescription instructions reviewed with patient as applicable. Potential red flag symptoms discussed with the patient. Reviewed appropriate action plan to take if red flag symptoms occur. Patient agreeable to treatment plan. Gill Knight APRN.[facility]10-23-2024 NotePatient Outreach (INTMMN) MICHELL WOOTEN ([id number]) 1975 F Date Time Provider Department 03/01/24 MIHIR GLOVER During your visit today, we [...] breast cancer [Z12.31] Order(s):DREA SCREENING W RHINA [[id number]] Order #: [id number] FUTURE Prescriptions as of 03/06/2024 - omeprazole [...] without bleeding [K29.50] 08/20/2023 Encounter Status:Closed by EPIC, PRODUSER on 03/06/24[facility] 04-15-2023 Discharge summary Author Cornelius Aguiar [facility] April 15, 2023 5:30pm Note Date/Time April 15, 2023 4 :51pm [facility] Medical Records Department [address] [place] [address] Emergency Department Summary 04/15/23 MR#: [id number] Acct: [id number] Name: MICHELL WOOTEN Rep #:[id number] : 1975 47 From: Cornelius Aguiar MD [...] of reasons to bevery stressed right now. [facility] Medical History Bulimia Cardiology follow-up encounter Deliberate [...] 77.7 H Lymph % (Auto) 16.6 L Bates % (Auto) 4.9 Eos % (Auto) 0.1 [...] your Primary Care Provider. Call [facility] ([phone]) or report to the closest Emergency Room. Call 911 if necessary. 04/15/23 1730 <Electronically signed by Cornelius Aguiar MD> Cosigner Signature (if applicable): CC: Dr. Mihir Glover MD ~ Signed [facility] Work Phone: 1(823) 368-501406-23-2023 Instructions* Patient Instructions* Mihir Glover MD - 10/30/2022 12:12 PM EDT Keep a headache diary. documented in this encounterL[facility]06-[facility] History of Present illness Narrative* Mihir Glover MD - 10/30/2022 11:49 AM EDT This note was created using Shopdecariter. Subjective Michell Wooten is a 47 year [...] with her migraine so she went to [facility] where labs and CT brain on [...] intact. No weakness. Coordination: Coordination is intact. Myhfuh-Grel-Kmbmpr Test normal. Rapid alternating movements normal. Gait: [...] effects. Mihir Glover MD documented in this encounterLake[facility]04-26-2023 Instructions* Patient Instructions* Gill Linares APRN.DIRECTOR OF SOCIAL MEDIA MARKETING - 09/02/2022 12:13 PM EDT HOME INSTRUCTIONS [...] tried and no results. documented in this encounterLakehealth [facility]04-26-2023 History of Present illness Narrative* Gill Linares [...] (HCC) 07/31/2005 3rd degree AVB Bipolar affective ([facility]) Dr. Rios Bipolar affective disorder ([facility]) 12/01/2018 Congenital third degree heart block 07/31/2005 [...] 02/05/2022 Marcella ablation ICD GENERATOR CHANGE 07/19/2020 [facility] IMPLANTABLE CARDIOVERTER DEFIBRILLATOR 05/10/2009 defib/pacer- [facility], [...] Patient agreeable to treatment plan. Gill Linares APRN.LEIF documented in this encounterLake[facility] Center10-10-2022 Miscellaneous Notes* Telephone Encounter - Baylee Islas RN - 02/16/2022 11:40 AM EDT Patient called and notified of benign pathology results from surgery on 02/05 at [facility] with Dr. Castro. Patient verbalizes understanding. Baylee Islas RN documented in this encounterLakehealth [facility] Center09-30-2022 Miscellaneous Notes* Telephone Encounter - Alis Marvin LPN - 02/06/2022 3:33 PM EDT Patient returned call and went over notes below from tree sapper with understanding. Patient is contacting [facility] office. * Telephone Encounter - Balbina Lamas RN - 02/06/2022 3:26 PM EDT Attempted to contact patient to recommend patient to contact [facility]. Left voicemail message to call office and [...] calling: self Call patient at: at home [phone] (home) [phone] (cell) Was an appointment scheduled: No Closing statement: Symptom Call: Thank you for calling [facility], your call is very important. A nurse will call in approximately 2-4 hours during business hours. If this is an emergency, please contact 911. Lashay Granda Pss documented in this encounterLakehealth [facility] Center09-30-2022 History of Present illness Narrative* Flor Castro MD - 02/06/2022 3:09 PM EDT Patient underwent hysteroscopy D&C with endometrial ablation with Marcella device at [facility] on 02/05/2022 without complication. Pathology is pending. Flor Castro MD documented in this encounterLakehealth [facility] Center09-09-2022 Miscellaneous Notes* Telephone Encounter - Natacha Salas RN - 01/16/2022 10:21 AM EDT Received signed medical clearance letter. Patient is cleared for surgery. Letter placed in RR mailbox. Natacha Salas RN * Telephone Encounter - Huong Redding RN - 01/14/2022 11:[address] Marcella Haskins's nurse, called back. Needs surgical clearance form faxed to their office at [phone]. Form faxed. Huong Redding RN * Telephone Encounter - Huong Redding RN - 01/14/2022 11:20 AM EDT Left message at Dr. Naranjo's (patient's radiation protection technician) office to call back line. RR wants to proceed with hysteroscopy, D&C, endometrial ablation and Liletta IUD insertion. Patient has IED and pacemaker. Wanted to see if okay with proceeding with surgery or if anything needs done with those priorto surgery. Huong Redding RN documented in this encounterLakehealth [facility] Center08-23-2022 History of Past illness Narrative* Problem Noted [...] of this encounter (statuses as of 10/30/2022) [facility]08-23-[facility] History of Present illness Narrative* Flor Castro [...] menses started and it is keeping it traffic inspector.. Had pelvic US 10/28/21- reviewed, possible adenomyosis. Pap smear 2020 neg w/ neg hrhpv. Has had 3 c/s and a tubal w/ the third one in 1997. OB History T3 L3 SAB0 IAB0 Ectopic0 Multiple0 Live Births0 Commercial Hvac Technician History LMP: 12/09/2021, Having periods Age at Menarche: Age at First : Age at Menopause: Commercial Hvac Technician History Comments: Sexual Activity: Not Currently; Male; TUBAL LIGATION Contraception: Surgical PAST MEDICAL HISTORY Diagnosis Date Asthma Atrial tachycardia (HCC) 2009 Atrioventricular block, complete (HCC) 07/31/2005 3rd degree AVB Bipolar affective (HCC) Dr. Rios Bipolar affective disorder ([facility]) 12/01/2018 Congenital third degree heart block 07/31/2005 [...] ONLY TIMES THREE ICD GENERATOR CHANGE 07/19/2020 [facility] IMPLANTABLE CARDIOVERTER DEFIBRILLATOR 05/10/2009 defib/pacer- [facility], [...] N/A Flor Castro MD documented in this encounterLakehealth [facility] Center08-22-2022 History of Present illness Narrative* Christine Joseph, NURSERY MANAGER.DIRECTOR OF SOCIAL MEDIA MARKETING - 12/29/2021 2:52 PM EDT 46 year [...] Atrial tachycardia (HCC) 2009 Atrioventricular block, complete ([facility]) 07/31/2005 3rd degree AVB Bipolar affective ([facility]) Dr. Rios Bipolar affective disorder ([facility]) 12/01/2018 Congenital third degree heart block 07/31/2005 [...] ONLY TIMES THREE ICD GENERATOR CHANGE 07/19/2020 [facility] IMPLANTABLE CARDIOVERTER DEFIBRILLATOR 05/10/2009 defib/pacer- [facility], [...] Level: 3 - Low documented in this encounterLakehealth [facility] Center08-09-2022 Miscellaneous Notes* Telephone Encounter - Shelley Briceno - 12/16/2021 12:11 PM EDT Rescheduled, patient notified and confirmed. * Telephone Encounter - Natacha Helton - 12/16/2021 9:30 AM EDT Pt had a in the family and needs to move today's treatment. Please call to r/s. documented in this encounterLakehealth [facility] Center08-02-2022 Miscellaneous Notes* Telephone Encounter - Huong Redding [...] This nurse reviewed side effects listed on [facility] website. Patient has another iron infusion scheduled for tomorrow (12/10/21) and she is concerned about getting more due to side effects she is having now. Patient aware that I will relay this information to Christine Joseph for advisement. Patient agreeablewith this. Khalida Stallings RN documented in this encounterLakehealth [facility] Center07-28-2022 Miscellaneous Notes* Telephone Encounter - Rosana Singh - 12/04/2021 8:13 AM EDT Patient is reschuedled, aware of dates and times. Rosana Singh * Telephone Encounter - Natacha Helton - 12/03/2021 4:33 PM EDT Pt called stating she is needed to get the iron infusions back on the schedule based on her labs. documented in this encounterLakehealth [facility] Center07-27-2022 Miscellaneous Notes* Telephone Encounter - Natacha Salas RN - 12/03/2021 4:24 PM EDT Patient voiced her relief with the below information. Would like to a visit to discuss with RM. Appointment given. Transferred to scheduling - would like to begin IV iron infusions. Natacha Salas RN * Telephone Encounter - Flro Castro MD - 12/03/2021 3:32 PM EDT [...] better. Baylee Islas RN documented in this encounterLakehealth [facility] Center07-25-2022 Miscellaneous Notes* Telephone Encounter - Baylee Islas [...] she is feeling better. documented in this encounterLakehealth [facility] Center07-14-2022 Miscellaneous Notes* Telephone Encounter - Huong Redding RN - 11/20/2021 4:28 PM EDT Patient now scheduled for iron infusions. Huong Redding RN * Telephone Encounter - Rosana Singh - 11/20/2021 11:16 AM EDT Patient has been approved for iron sucrose infusions. Tried contacting pt to schedule, went to , left message for pt to return call. Rosana Atulleonila * Telephone Encounter - Christine Joseph APRN.CNP [...] message would be sent to our provider production sound mixer and Blood Management. Natacha Salas RN documented in this encounterLakehealth [facility] Center07-14-2022 Miscellaneous Notes* Telephone Encounter - Sandra Del [...] prior to treatments starting. documented in this encounterLakehealth [facility] Center07-12-2022 History of Present illness Narrative* Mariza Reilly [...] ONLY TIMES THREE ICD GENERATOR CHANGE 07/19/2020 [facility] IMPLANTABLE CARDIOVERTER DEFIBRILLATOR 05/10/2009 defib/pacer- [facility], Dr Hayley AVILEZ FALLOPIAN TUBE CT ANESTH,PACEMAKER INSERTION 01/09/1992 Permanent Pacemaker Other significant [...] and evaluation for treatment. documented in this encounterLakehealth [facility] Center07-05-2022 Miscellaneous Notes* Telephone Encounter - Baylee Islas [...] RM patient. Patient stopped at front end architect today to discuss symptoms she has been [...] absence. Huong Redding RN documented in this encounterLakehealth [facility] Center06-29-2022 History of Present illness Narrative* Christine Joseph APRN.DIRECTOR OF [employer]ET[employer] - 11/05/2021 10:06 AM EDT Michell Wooten is a 46 year old female who presents for problem visit AUB for 6 week(s). HPI: Patient states her period started in September and she continued to bleed for 5 weeks. On October 24 she went to [facility] ED due to the heavy bleeding. They [...] L3 SAB0 IAB0 Ectopic0 Multiple0 Live Births0 Commercial Hvac Technician History LMP: 08/24/2020, Having periods Age at Menarche: Age at First : Age at Menopause: Commercial Hvac Technician History Comments: Sexual Activity: Yes; Male; TUBAL LIGATION Contraception: Surgical PAST MEDICAL HISTORY Diagnosis Date Asthma Atrial tachycardia (HCC) 2009 Atrioventricular block, complete (HCC) 07/31/2005 3rd degree AVB Bipolar affective (HCC) Dr. Rios Bipolar affective disorder ([facility]) 12/01/2018 Congenital third degree heart block 07/31/2005 [...] ONLY TIMES THREE ICD GENERATOR CHANGE 07/19/2020 [facility] IMPLANTABLE CARDIOVERTER DEFIBRILLATOR 05/10/2009 defib/pacer- [facility], Dr Hardy LIGLENKA FALLOPIAN TUBE CT ANESTH,PACEMAKER INSERTION 01/09/1992 Permanent Pacemaker FAMILY HISTORY [...] external genitalia normal, normal Bartholin's glands, urethra, Cheriton's glands, no vulvar lesions, no cervical lesions, [...] Level: 4 - Moderate [facility] History of Present illness Narrative* Etta Rojo - 12/14/2017 3:28 AM EDT December 14, 2017 The electronic medical record was reviewed to determine if the proposed sleep study conforms to [facility] Practice Parameters for the Indications for Polysomnography and Related Procedures, or if the sleep study is indicated for other reasons. Indications for study: MARKO suspected with comorbid medical or sleep disorders: Heart failure or other [id number] cardiac disease Sleep study to be performed: [...] received for Polysomnogram (PSG) from LORRIE Otto. [facility] Staff. Visit prep complete. Comments :No The sleep study is scheduled for 12/31. Insurance: Payor: [facility] MEDICAID / Plan: [facility] MEDICAID / Product Type: Medicaid / Adarsh Talbot Psr documented in this [facility] History of Past illness Narrative* Problem Noted [...] of this encounter (statuses as of 11/05/2021) [facility] of Past illness Narrative* Problem Noted [...] of this encounter (statuses as of 11/11/2021) [facility] of Past illness Narrative* Problem Noted [...] of this encounter (statuses as of 11/18/2021) [facility] of Past illness Narrative* Problem Noted [...] of this encounter (statuses as of 11/20/2021) [facility] of Past illness Narrative* Problem Noted [...] of this encounter (statuses as of 11/20/2021) [facility] of Past illness Narrative* Problem Noted [...] of this encounter (statuses as of 11/20/2021) [facility] of [facility] illness Narrative* Problem Noted [...] of this encounter (statuses as of 12/01/2021) [facility] of [facility] illness Narrative* Problem Noted [...] of this encounter (statuses as of 12/03/2021) [facility] of Past illness Narrative* Problem Noted [...] of this encounter (statuses as of 12/08/2021) [facility] of Past illness Narrative* Problem Noted [...] of this encounter (statuses as of 12/09/2021) [facility] Narrative* Problem Noted [...] of this encounter (statuses as of 12/10/2021) [facility] Narrative* Problem Noted [...] of this encounter (statuses as of 12/16/2021) [facility] Narrative* Problem Noted [...] of this encounter (statuses as of 12/18/2021) [facility] Narrative* Problem Noted [...] of this encounter (statuses as of 12/22/2021) [facility] Narrative* Problem Noted [...] of this encounter (statuses as of 12/29/2021) [facility] illness Narrative* Problem Noted [...] of this encounter (statuses as of 12/30/2021) [facility] of [facility] illness Narrative* Problem Noted [...] of this encounter (statuses as of 01/19/2022) [facility] Narrative* Problem Noted [...] of this encounter (statuses as of 02/06/2022) [facility] illness Narrative* Problem Noted [...] of this encounter (statuses as of 02/06/2022) [facility] illness Narrative* Problem Noted [...] of this encounter (statuses as of 02/06/2022) [facility] Narrative* Problem Noted [...] of this encounter (statuses as of 02/06/2022) [facility] of [facility] illness Narrative* Problem Noted [...] of this encounter (statuses as of 02/06/2022) [facility] of [facility] illness Narrative* Problem Noted [...] of this encounter (statuses as of 02/06/2022) [facility] illness Narrative* Problem Noted [...] of this encounter (statuses as of 02/16/2022) [facility] illness Narrative* Problem Noted [...] of this encounter (statuses as of 05/18/2022) [facility] of Past illness Narrative* Problem Noted [...] of this encounter (statuses as of 09/02/2022) [facility] Author [facility] Date/Time January 20, 2025 5:38am [facility] Medical Records Department [address] [place] [address] Emergency Department Summary 01/20/25 MR#: [id number] Acct: [id number] Name: MICHELL WOOTEN Rep #:[id number] : 1975 49 From: Gaston jefferson DO PCP: Dr. Mihir Glover MD Status:R EG ER Location: ED HPI History of Present Illness Chief Complaint: Chest Pain Narrative Narrative: Chief complaint and HPI: 49-year-old female with past medical history of congenital heart block requiring ICD at the age of 16, recent mitral valve prolapse repair on 01/27, iron deficiency anemia, cardiomyopathy, anxiety presents for evaluation of chest tightness. Patient states that she has been onLasix since her surgery. Her last dose was today. States she has been sleepingin a recliner secondary to comfort. States she woke up this evening and felt short of breath. She states she then started to panic and have an increase in anxiety. She states she then developed chest tightness. She is not on blood thinners. Symptoms already improving. She denies any fever, chills, URI symptoms, abdominal pain, nausea, vomiting, dysuria, bilateral lower extremity swelling. Review of systems: See HPI Medications: As listed on the chart Allergies: As listed on the chart PFSH: Per chart Vital signs: As listed on the chart. Reviewed. Physical exam: Gen: A&O x3, NAD but anxious Head: Normocephalic, atraumatic Eyes: No sclera icterus, conjunctiva clear, PERRL, EOMI ENT: Mildly dry mucous membranes Neck: Trachea midline, No JVD CV: RRR, no murmurs, no peripheral edema, midline chest incision healing well without overlying cellulitis or purulence Resp: Lungs CTA BL, no w/r/c GI: Abd soft, non-distended, non-tender, no r/r/g Musc: Full ROM, no deformity Skin: Warm, dry Neuro: Alert, oriented, grossly intact, sensation intact Psych: Cooperative, anxious [facility] Medical History (Updated 01/20/25 @ 05:[address] Gaston Guzman, DO) Wears glasses Wears dentures Marijuana use Easy bruising Restless legs Migraine headache Heartburn Former smoker Sleep apnea History of edema History of echocardiogram Cardiology follow-up encounter History of pacemaker Iron deficiency anemia PTSD (post-traumatic stress disorder) Deliberate self-cutting Bulimia Panic anxiety syndrome History of complete heart block Home Medications ?Medication ?Instructions ?Recorded ?Last Taken ?Type lorazepam 0.5 mg tablet 0.5 mg PO DAILY PRN PRN Anxi ety 09/23/22 09/29/22 History aspirin 81 mg tablet,delayed 81 mg PO DAILY 01/20/25 0 01/20/25 History release furosemide 20 mg tablet 20 mg PO DAILY 01/20/2501/08 History furosemide 20 mg tablet (Lasix) 20 mg PO DAILY 5 days #5 tabs 01/20/25 Unknown Rx metoprolol succinate 25 mg 12.5 mg PO BID 01/20/25 History tablet,extended release 24 hr Allergy/AdvReac Type Severity Reaction Status Date / Time sertraline (From Zoloft) Allergy Mild Other Verified 01/20/25 00:30 tramadol Allergy Nausea Verified 01/20/25 00:30 Antihistamines - AdvReac Other Verified 01/20/25 00:30 Ethylenediamine naproxen AdvReac Other Verified 01/20/25 00:30 paroxetine HCl (From Paxil) AdvReac Other Verified 01/20/25 00:30 Family History Other Cardiac defibrillator in place Surgical History Hx of section History of endometrial ablation History of cardiac catheterization History of implantable cardiac defibrillator (ICD) Social History Smoking Status: Never smoker EXAM Physical Exam Const Vital Signs: 01/20/25 00:30 01/20/25 00:32 01/20/25 00:34 Temperature 98.6 F 98.6 F Temperature Source Oral Oral Pulse Rate 99 97 Respiratory Rate 19 H 18 Respiratory Effort Short of Breath Blood Pressure 123/80 H 123/80 H Blood Pressure Mean 94 94 Pulse Ox 99 99 Oxygen Delivery Method Room Air Room Air 01/20/25 01:28 01/20/25 02:00 01/20/25 03:00 Temperature Temperature Source Pulse Rate 87 87 89 Respiratory Rate 16 18 18 Respiratory Effort Blood Pressure 98/68 101/67 Blood Pressure Mean 78 78 Pulse Ox 98 99 97 Oxygen Delivery Method Room Air Room Air Room Air 01/20/25 04:00 01/20/25 05:00 Temperature Temperature Source Pulse Rate 87 90 Respiratory Rate 16 18 Respiratory Effort Blood Pressure 102/68 96/65 Blood Pressure Mean 79 75 Pulse Ox 98 98 Oxygen Delivery Method Room Air Room Air MDM MDM MDM Narrative Medical decision making narrative: 49-year-old female with past medical history of congenital heart block requiringICD at the age of 16, recent mitral valve prolapse repair on 01/09, iron deficiency anemia, cardiomyopathy, anxiety presents for evaluation of chest tightness. Patient states that she has been on Lasix since her surgery. Her last dose was today. States she has been sleeping in a recliner secondary to comfort. States she woke up this evening and felt short of breath. She states she then started to panic and have an increase in anxiety. She states she then developed chest tightness. She is not on blood thinners. Symptoms already improving. On presentation, patient no acute distress but anxious. Vitals are stable. Differential diagnosis includes but is not limited to anxiety reaction,pneumonia, CHF exacerbation, PE, ACS, arrhythmia, anemia, dehydration, electrolyte abnormality. Aspirin and 500 cc NS bolus ordered. Patient refused Tylenol. Pacemaker was interrogated without any events. CBC without leukocytosis. Patient has anemia with hemoglobin 11.2. She has history of anemia in the past. She states she has been anemic since her surgery. Plateletcount unremarkable. Coagulation panel unremarkable. BMP unremarkable without electrolyte abnormality or GENE. BNP mildly elevated at 765. Patient not overtly fluid overloaded on physical exam. She has been on Lasix since her surgery. Troponin 56. I suspect this elevation is likely from her recent surgery, will get delta. UA negative for UTI. Repeat troponin 55. The delta is negative. Again I think this is suspected due to her recent heart surgery. Patient has a delayed stay here in our emergency department secondary to issues with radiology not being able to see her CTA. I did personally review the imaging, no obvious PE. Patient has bilateral pleural effusions. Patient symptoms may be secondary to mild CHF exacerbation. She states she is on 20 mg of Lasix from her heart surgery but that this ended yesterday. I will reach outto her radiation protection technician at , Dr. Gordon Armstrong to discuss if I should place the patient back on Lasix. I am also hoping that maybe he will be able to look at the CTA imaging to assess for any missed abnormality as radiology is unable to read my imaging. I spoke with the cardiothoracic surgeon from , Dr. Morin. He reviewed the CTA and patient was discussed. He agrees that patient has bilateral pleural effusions, worse on the right with atelectasis. No PE. He was updated of her intermittently soft blood pressures. Okay to place patient'sback on Lasix for a couple days. Call their office for follow-up. May need an outpatient echocardiogram. Patient confirmed understanding the plan. Patient stable to discharge home. EKG: Interpreted by me/EM physician: EKG shows atrial sensed ventricular paced rhythm. Heart rate 92 Diagnostic: Interpreted by me/EM physician: ICD in place. No pneumonia or pneumothorax. Small bilateral pleural effusions. Impression: 1. Mild CHF exacerbation 2. Chronic anemia 3. History of recent mitral valve prolapse repair Lab Data Labs: Laboratory Results - last 24 hr 01/20/25 01/20/25 01/20/25 00:37 01:18 02:34 WBC 10.3 RBC 3.96 L Hgb 11.2 L Hct 34.1 L MCV 86.1 MCH 28.3 MCHC 32.8 RDW Std Deviation 43.1 RDW Coeff of Hortencia 13.9 Plt Count 313 MPV 11.2 Immature Gran % (Auto) 0.500 Neut % (Auto) 67.6 Lymph % (Auto) 21.2 Bates % (Auto) 6.0 Eos % (Auto) 4.3 Baso % (Auto) 0.4 Absolute Neuts (auto) 6.9 Absolute Lymphs (auto) 2.18 Nucleated RBC % 0 PT 13.8 INR 1.0 APTT 25.3 Sodium 139 Potassium 3.5 Chloride 105 Carbon Dioxide 21.3 Anion Gap 13 BUN 18 Creatinine 0.90 Estim Creat Clear Calc 96.69 Est GFR (MDRD) Non-Af 78 BUN/Creatinine Ratio 20.0 Glucose 113 H Calcium 8.8 Troponin T High Sens 56 H* Troponin T Hi Sens 2 Hr 55 H* NT pro BNP II 765 H Urine Color Straw Urine Clarity Clear Urine pH 6.0 Ur Specific [place]croft 1.010 Urine Protein Negative Urine Glucose (UA) Normal Urine Ketones Negative Urine Occult Blood 10 H Urine Nitrite Negative Urine Bilirubin Negative Urine Urobilinogen Normal Ur Leukocyte Esterase Negative Urine RBC 0 SEEN Urine WBC 0 SEEN Ur Squamous Epith Cells 0-5 SEEN Urine Bacteria 0 SEEN Urine Mucus 0 SEEN Discharge Plan Triage Chief Complaint: Chest Pain ED Provider: Gaston Guzman Dx/Rx/DC Orders Clinical Impression: CHF exacerbation Instructions: Heart Failure Dc Prescriptions: New furosemide [Lasix] 20 mg tablet 20 mg PO DAILY 5 Days Qty: 5 0RF No Action lorazepam 0.5 mg tablet 0.5 mg PO DAILY PRN PRN (Reason: Anxiety) furosemide 20 mg tablet 20 mg PO DAILY metoprolol succinate 25 mg tablet extended release 24 hr 12.5 mg PO BID aspirin 81 mg tablet,delayed release (DR/EC) 81 mg PO DAILY Primary Care Provider: Mihir Glover Referrals: Follow-up with your cardiothoracic surgeon [Other] Mihir Glover MD [Primary Care Provider] - 3-5 Days Activity Restrictions/Additional Instructions: Follow-up with your cardiothoracic surgeon. You need to call their office as soon as possible. I did write for a couple days of Lasix. Follow-up with your primary care physician. Print Language: Irish Disposition Disposition: Home, Self Care What to do if you have Problems For any increased pain, shortness of breath, bleeding, nausea or vomiting, chestpain, or any unexpected problems, contact your Primary Care Provider. Call [facility] ([phone]) or report to the closest Emergency Room. Call 911 if necessary. 01/20/25 0538 <Electronically signed by Gaston Guzman DO> Cosigner Signature (if applicable): CC: Dr. Mihir Glover MD ~ Signed [facility] Work Phone: Evaluation + Plan note Future Appointments Appointment Date:11/07/2024 11:00:00 AM Scheduled Provider:SAHIL PICHARDO Location:[facility] Appointment Type: OV Sleep Consult Diagnostic Tests Pending * Blood Culture (bacterial) 10/31/24 * Blood Culture (fungal and bacterial) 10/31/24 * Complete Blood Count 10/31/24 * Sedimentation Rate Automated 10/31/24 [facility] Evaluation + Plan note Future Appointments Appointment Date:11/07/2024 11:00:00 AM Scheduled Provider:SAHIL PICHARDO Location:[facility] Appointment Type:PC OV Sleep Consult [facility] Evaluation + Plan note Future Appointments Appointment Date:11/16/2024 07:30:00 AM Scheduled Provider: Location:Heart Lab Appointment Type:CV Procedure - Heart Lab/Hybrid OR Appointment Date:12/04/2024 11:00:00 AM Scheduled Provider:KIM DEJESUS Location:[facility] Appointment Type:CV OV [facility] Evaluation + Plan note Future Appointments Appointment Date:12/04/2024 11:00:00 AM Scheduled Provider:KIM DEJESUS Location:[facility] Appointment Type:CV OV [facility] Evaluation noteNo assessment information available [facility] Work Phone: Evaluation note* Diagnosis Abnormal uterine bleeding (AUB)- Primary Iron deficiency anemia due to chronic blood loss Iron deficiency anemia secondary to blood loss (chronic) Abnormal hemoglobin (Hgb) (HCC) Other hemoglobinopathies [facility] Diagnosis Iron deficiency anemia due to chronic blood loss Iron deficiency anemia secondary to blood loss (chronic) Intestinal malabsorption, unspecified type [facility] Menorrhagia with irregular cycle- Primary Excessive or frequent menstruation [facility] Diagnosis Iron deficiency anemia due to chronic blood loss- Primary Iron deficiency anemia secondary to blood loss (chronic) [facility]* Diagnosis Iron deficiency anemia due to chronic blood loss- Primary Iron deficiency anemia secondary to blood loss (chronic) [facility] Diagnosis Iron deficiency anemia due to chronic blood loss- Primary Iron deficiency anemia secondary to blood loss (chronic) [facility] Diagnosis Iron deficiency anemia due to chronic blood loss- Primary Iron deficiency anemia secondary to blood loss (chronic) Irregular uterine bleeding Irregular menstrual cycle [facility] Diagnosis Iron deficiency anemia due to chronic blood loss- Primary Iron deficiency anemia secondary to blood loss (chronic) Abnormal uterine bleeding (AUB) Adenomyosis Endometriosis of uterus documented [facility] encounter [facility] Diagnosis Iron deficiency anemia due to chronic blood loss- Primary Iron deficiency anemia secondary to blood loss (chronic) Abnormal uterine bleeding (AUB) documented [facility] this encounter [facility]* Diagnosis Special screening for malignant neoplasms, colon [facility] Diagnosis Iron deficiency anemia due to chronic blood loss Iron deficiency anemia secondary to blood loss (chronic) [facility] Diagnosis Encounter for screening mammogram for breast cancer [facility]* Diagnosis Blood in stool- Primary Constipation, unspecified constipation type Anemia, unspecified type [facility]* Diagnosis Migraine with aura and without status migrainosus, not intractable- Primary Migraine with aura, without mention of intractable migraine without mention of status migrainosus [facility]* Diagnosis Mitral valve insufficiency- Primary Mitral valve disorders Mitral valve insufficiency, unspecified etiology Mitral valve insufficiency, unspecified etiology documented in this encounter [facility] Work Phone: Evaluation note* Diagnosis Mitral valve insufficiency, unspecified etiology Mitral valve insufficiency, unspecified etiology documented in this encounter [facility] Work Phone: Evaluation note* Diagnosis Implantable cardioverter-defibrillator (ICD) in situ Mitral valve insufficiency, unspecified etiology S/P MVR (mitral valve repair) Mitral valve insufficiency, unspecified etiology S/P MVR (mitral valve repair) documented in this encounter [facility] Work Phone: Evaluation note* Diagnosis Mitral valve insufficiency, unspecified etiology documented in this encounter [facility] Work Phone: Evaluation note* Diagnosis Mitral valve insufficiency, unspecified etiology S/P mitral valve repair Other postprocedural status documented in this encounter [facility] Work Phone: History of Present illness Narrative* Sotero Martinez, PharmD - 01/25/2025 8:20 AM EDT [facility] Michell Ponce is a 49 y.o. female was referred to Clinical Pharmacy Team to complete a post-discharge medication optimization and monitoring visit. The patient was referred for multiple concerns while in [facility]. Today was our second visit. Referring Provider: Sandra Blanc AP* PCP: Mihir Glover MD - not with Subjective Allergies[1] [facility] [address] [place] [address] - [address] [place] [id number] [facility] [address], [address] [facility] [address] Medication System Management: Affordability/Accessibility: Medicaid Adherence/Organization: no issues Social History Social History Narrative Not on file HPI Review of Systems Objective There were no vitals taken for this visit. BP Readings from Last 4 Encounters: 01/23/25 113/72 01/22/25 113/64 01/20/25 104/56 01/19/25 130/88 There were no vitals filed for this [...] 5.3 12/29/2022 Current Outpatient Medications Medication Instructions aspirin 81 mg, oral, Daily docusate sodium (COLACE) 100 mg, oral, 2 times daily PRN furosemide (LASIX) 20 mg, oral, Daily LORazepam (ATIVAN) 0.5 mg, Daily PRN metoprolol tartrate (LOPRESSOR) 12.5 mg, oral, 2 times daily multivitamin with minerals tablet 1 tablet, oral, Daily polyethylene glycol (GLYCOLAX, MIRALAX) 17 g, oral, Daily PRN Assessment/Plan Problem List Items Addressed This Visit Mitral valve insufficiency, unspecified etiology -had phone call with Ollie and nursing yesterday --> State that her BP was 110/56 and she took hermetoprolol before bed. Endorses waking from her sleep in the middle of the night gasping for air and her heart was racing. After catching her breath, her BP was 98/51 (98) Repeat BP at 1:43am 111/71 Took half of an ativan (0.5mg) and was able to settle down and sleep thereafter Endorses feeling better at the time of call -today she is feeling better and was able to sleep last night -her BP this morning before meds was 135/99, HR 93 -BP re-check --> 128/89, HR 94 (only 10 minutes later) -has been having some diarrhea past few days and says it has been green -no issues with incision though and no chest pain -intermittent cough Medications Changes/Concerns: -none Refills Needed: -none needed today Plan/To Do: -continue to log BP's daily -stool study -nursing will continue with calls throughout the week [facility] P[facility] Status: -n/a -has Medicaid Time Spent with Patient and [facility] Team - Ollie Blanc NP and Juanita Jean RN via video visit: 15 minutes Follow Up: 1 week Continue all meds under the continuation of care with the referring provider and clinical pharmacy team. Sotero Martinez PharmD Verbal consent to manage patient's drug [...] Sertraline Palpitations Topiramate Palpitations [facility] Work Phone: Hospital course Narrative No data available for this section [facility] Hospital Discharge instructions Additional Instructions Please call the marketing program manager later today or on Wednesday to schedule close follow-up.[facility] Work Phone: Hospital Discharge instructionsW[facility] Work Phone: Hospital Discharge instructions Additional Instructions [...] including rapid strep test, influenza and COVID testWBlanchard Valley Health [facility] Work Phone: Hospital Discharge instructions Additional Instructions You can continue to take [id number] Tums/Pepcid for your reflux. Please begin adding more fiber to your diet to help with the constipation. You can try Preparation H to help with your hemorrhoid discomfort.[facility] Work Phone: Hospital Discharge instructions No data available for this section [facility] Hospital Discharge instructionsAdditional Instructions Follow-up with your cardiothoracic surgeon. You need to call their office as soon as possible. Let them know that the surgeon that I spoke to today Dr. Morin said you might need an outpatient echocardiogram. I did write for a couple days of Lasix. Return back to ED if symptoms change or worsen.[facility] Work Phone: Progress note No data available for this section [facility] Reason for referral (narrative)* Outpatient Procedure (Routine) - Pending Review Specialty Diagnoses / Procedures Referred By Rusty south Referred To Contact [facility] Diagnoses Abnormal uterine bleeding (AUB) Procedures ENDOMETRIAL BIOPSY ENDOMETRIAL BX W/WO ENDOCERVIX BX W/O DILAT SPX Flor Castro MD [address] [place] [address] [facility] [address] [place] [address] Referral ID Status Reason Start Date Expiration Date Visits Requested Visits Authorized [id number] Pending Review Auto-Generat ed Referral 12/30/2021 12/30/2022 1 1 [facility] for referral (narrative)* Diagnostic Procedure Only (Routine) - Pending Review Specialty Diagnoses / Procedures Referred By Rusty t Referred To Contact [facility] Diagnoses Encounter for screening mammogram for breast cancer Procedures DREA SCREENING SCREENING MAMMOGRAPHY BI 2-VIEW BREAST INC CAD Mihir Glover MD [address] [place] [address] [facility] [address] [place] [address] Referral ID Status Reason Start Date Expiration Date Visits Requested Visits Authorized [id number] Pending Review Auto-Generat ed Referral 05/13/2022 06/12/2023 1 1 [facility] for referral (narrative)* CV Imaging (Routine) - Pending Review Specialty Diagnoses / Procedures Referred By Rusty t Referred To Contact Cardiology Procedures Echocardiogram [place] [address] [facility] [id number] Phone: tel: fax: Referral ID Status Reason Start Date Expiration Date Visits Requested Visits Authorized [id number] Pending Review Perform Procedure 11/17/2024 11/17/2025 1 1 [facility] Work Phone: Reason for referral (narrative)No reason for referral information availableWBlanchard Valley Health [facility] Work Phone: Reason for visit Narrative* CV Imaging (Routine) - Pending Review Specialty Diagnoses / Procedures Referred By Rusty t Referred To Contact Cardiology Procedures Echocardiogram Non [place] [address] [address] Department [place] [address] Phone: tel: fax: Referral ID Status Reason Start Date Expiration Date Visits Requested Visits Authorized [id number] Pending Review Perform Procedure 11/17/2024 11/17/2025 1 1 [facility] Work Phone: reason for visit Narrative* Imaging (Routine) - Authorized Specialty Diagnoses / Procedures Referred By Contac t Referred To Contact Radiology Diagnoses Mitral valve insufficiency, unspecified etiology Procedures XR [place] 2 [place] [address] [address] [facility] [place] [address] Phone: tel: fax: Referral ID Status Reason Start Date Expiration Date Visits Requested Visits Authorized [id number] Authorized Perform Procedure 11/27/2024 11/27/2025 1 1 [facility] Work Phone: reason for visit Narrative* Auth/Cert Specialty Diagnoses / Procedures Referred By Jordiac t Referred To Contact Diagnoses Mitral valve insufficiency, unspecified etiology Mitral valve insufficiency, unspecified etiology [I34.0] Procedures CT VALVULOPLASTY MITRAL VALVE W/CARDIAC BYPASS REPAIR, [place] [address] [address] [facility] [place] [address] Phone: tel: fax: [facility] Zulema GALAN [address] [place] [address] fax: Referral ID Status Reason Start Date Expiration Date Visits Re quested Visits Authorized [id number] 1 1 [facility] Work Phone: reason for visit Narrative* Consultation (Routine) - Authorized Specialty Diagnoses / Procedures Referred By Contac t Referred To Contact Pharmacy Diagnoses Mitral valve insufficiency, unspecified etiology Sandra Blanc APRN-CNP [id number] [address] [facility] Department [place] [address] Phone: tel: fax: Referral ID Status Reason Start Date Expiration Date Visits Requested Visits Authorized [id number] Authorized Specialty Services Required 01/17/2025 01/17/2026 1 1 [facility] Work Phone: Reason for visit Narrative* Consultation (Routine) - Authorized Specialty Diagnoses / Procedures Referred By Rusty t Referred To Contact Pharmacy Diagnoses Mitral valve insufficiency, unspecified etiology Sandra Blanc, NURSERY MANAGER-DIRECTOR OF SOCIAL MEDIA MARKETING [address] Department [place] [address] Phone: tel: fax: Referral ID Status Reason Start Date Expiration Date Visits Requested Visits Authorized [id number] Authorized Specialty Services Required 01/18/2025 01/18/2026 1 1 [facility] Work Phone: Summary Purpose Family History No Family History Records Found Relationship Condition Age at Onset Recorded Date/T yamini Not Specified Cardiac defibrillator in place Unknown Advance Directives No Advanced Directives Records Found Advance Directive Response Recorded Date/ Time Living Will No October 24, 2021 9:03am Power of Tappet Adjuster No October 24 9:03am Advance Directive Response Recorded Date/ Time Living Will No November 17, 2021 7:22am Power of Tappet Adjuster No November 17 7:22am Advance Directive Response Recorded Date/ Time Living Will No June 16 11:53am Power of Tappet Adjuster No June 16, 2022 11:53am Advance Directive Response Recorded Date/ Time Living Will No April 15 5:19pm Power of Tappet Adjuster No April 15, 2023 5:19pm Advance Directive Response Recorded Date/ Time Living Will No July 18, 2023 3:37pm Power of Tappet Adjuster No July 17 3:37pm Date Activated Date Inactivated Comments 01/09/2025 6:39 AM Question Answer Comments Plan of Care: Code Status Discussion Completed Decision Maker: Patient Date Activated Date Inactivated Comments 01/09/2025 6:39 AM Question Answer Comments Plan of Care: Code Status Discussion Completed Decision Maker: Patient Advance Directive Response Recorded Date/ Time Do you have a Healthcare Power of Tappet Adjuster? Yes January 20, 2025 12:33am Chief Complaint and Reason for Visit Chief Complaint VAGINAL BLEEDING X1 MONTH Chief Complaint VAGINAL BLEEDING X1 MONTH abnormal labs Chief Complaint SORE THROAT Chief Complaint chest other Chief Complaint chest other bloody stool, rectal pain, back pain Chief Complaint Admit Date MITRAL VALVE INSUFFCIENCY,ETIOLOGY/RX HE RE January 19, 2025 3:47pm SOB January 20, 2025 12:28am Medications Administered Section Inactive Administered Medications - [...] over 15 Minutes, ONCE, 1 dose, On Wed12/22/21 at 1330, Please conduct a 30 minute post dose observation. X 4 doses New Bag/Syringe/Bottle 12/22/2021 1:21 PM EDT 200 mg 400 mL/hr Reason for Referral Specialty Diagnoses / Procedures Referred By Contac t Referred To Contact General Surgery Diagnoses Blood in stool Procedures CONSULT TO GENERAL SURGERY OFFICE/OUTPATIENT NEW HIGH MDM 60-74 MINUTES Older, Gill, NURSERY MANAGER.DIRECTOR OF SOCIAL MEDIA MARKETING [address] [facility] [place] [address] Referral ID Status Reason Start Date Expiration Date Visits Requested Visits Authorized [id number] Authorized PCP Requested Referral 09/02/2022 09/02/2023 1 1 Additional Source Comments INFORMATION SOURCE (unrecogn ized section and content) DATE CREATED AUTHOR 07/27/2020 [facility] ([place]) DATE CREATED AUTHOR AUTHOR'S ORGANIZ ATION 08/10/2023 [facility] DATE CREATED AUTHOR AUTHOR'S ORGANIZ ATION 09/13/2024 [facility] DATE CREATED AUTHOR AUTHOR'S ORGANIZ ATION 11/16/2024 [facility] DATE CREATED AUTHOR AUTHOR'S ORGANIZ ATION 12/01/2024 [facility] DATE CREATED AUTHOR AUTHOR'S ORGANIZ ATION 01/26/2025 [facility] DATE CREATED AUTHOR AUTHOR'S ORGANIZ ATION 01/27/2025 [facility] DATE CREATED AUTHOR AUTHOR'S ORGANIZ ATION 01/27/2025 [facility] Goals (unrecognized section and content) [...] this section No data available for this sectionGoals may be documented in an alternate section Source Comments (unrecognize d section and content) In the event this informatio n is protected by the Federal Confidentiality of Alcohol and Drug Abuse Patient Records regulations: The Federal rules restrict any use of the information to criminally investigate or prosecute any alcohol or drug abuse patient.[facility] CenterIn the event this information is protected by the Federal Confidentiality of Alcohol and Drug Abuse Patient Records regulations: The Federal rules restrict any use of the information to criminally investigate or prosecute any alcohol or drug abuse patient.[facility] CenterIn the event this information is protected by the Federal Confidentiality of Alcohol and Drug Abuse Patient Records regulations: The Federal rules restrict any use of the information to criminally investigate or prosecute any alcohol or drug abuse patient.[facility] CenterIn the event this information is protected by the Federal Confidentiality of Alcohol and Drug Abuse Patient Records regulations: The Federal rules restrict any use of the information to criminally investigate or prosecute any alcohol or drug abuse patient.[facility] CenterIn the event this information is protected by the Federal Confidentiality of Alcohol and Drug Abuse Patient Records regulations: The Federal rules restrict any use of the information to criminally investigate or prosecute any alcohol or drug abuse patient.[facility] CenterIn the event this information is protected by the Federal Confidentiality of Alcohol and Drug Abuse Patient Records regulations: The Federal rules restrict any use of the information to criminally investigate or prosecute any alcohol or drug abuse patient.[facility] CenterIn the event this information is protected by the Federal Confidentiality of Alcohol and Drug Abuse Patient Records regulations: The Federal rules restrict any use of the information to criminally investigate or prosecute any alcohol or drug abuse patient.[facility] CenterIn the event this information is protected by the Federal Confidentiality of Alcohol and Drug Abuse Patient Records regulations: The Federal rules restrict any use of the information to criminally investigate or prosecute any alcohol or drug abuse patient.[facility] CenterIn the event this information is protected by the Federal Confidentiality of Alcohol and Drug Abuse Patient Records regulations: The Federal rules restrict any use of the information to criminally investigate or prosecute any alcohol or drug abuse patient.[facility] CenterIn the event this information is protected by the Federal Confidentiality of Alcohol and Drug Abuse Patient Records regulations: The Federal rules restrict any use of the information to criminally investigate or prosecute any alcohol or drug abuse patient.[facility] CenterIn the event this information is protected by the Federal Confidentiality of Alcohol and Drug Abuse Patient Records regulations: The Federal rules restrict any use of the information to criminally investigate or prosecute any alcohol or drug abuse patient.[facility] CenterIn the event this information is protected by the Federal Confidentiality of Alcohol and Drug Abuse Patient Records regulations: The Federal rules restrict any use of the information to criminally investigate or prosecute any alcohol or drug abuse patient.[facility] CenterIn the event this information is protected by the Federal Confidentiality of Alcohol and Drug Abuse Patient Records regulations: The Federal rules restrict any use of the information to criminally investigate or prosecute any alcohol or drug abuse patient.[facility] CenterIn the event this information is protected by the Federal Confidentiality of Alcohol and Drug Abuse Patient Records regulations: The Federal rules restrict any use of the information to criminally investigate or prosecute any alcohol or drug abuse patient.[facility] CenterIn the event this information is protected by the Federal Confidentiality of Alcohol and Drug Abuse Patient Records regulations: The Federal rules restrict any use of the information to criminally investigate or prosecute any alcohol or drug abuse patient.[facility] CenterIn the event this information is protected by the Federal Confidentiality of Alcohol and Drug Abuse Patient Records regulations: The Federal rules restrict any use of the information to criminally investigate or prosecute any alcohol or drug abuse patient.[facility] CenterIn the event this information is protected by the Federal Confidentiality of Alcohol and Drug Abuse Patient Records regulations: The Federal rules restrict any use of the information to criminally investigate or prosecute any alcohol or drug abuse patient.[facility] CenterIn the event this information is protected by the Federal Confidentiality of Alcohol and Drug Abuse Patient Records regulations: The Federal rules restrict any use of the information to criminally investigate or prosecute any alcohol or drug abuse patient.[facility] CenterIn the event this information is protected by the Federal Confidentiality of Alcohol and Drug Abuse Patient Records regulations: The Federal rules restrict any use of the information to criminally investigate or prosecute any alcohol or drug abuse patient.[facility] CenterIn the event this information is protected by the Federal Confidentiality of Alcohol and Drug Abuse Patient Records regulations: The Federal rules restrict any use of the information to criminally investigate or prosecute any alcohol or drug abuse patient.[facility] CenterIn the event this information is protected by the Federal Confidentiality of Alcohol and Drug Abuse Patient Records regulations: The Federal rules restrict any use of the information to criminally investigate or prosecute any alcohol or drug abuse patient.[facility] CenterIn the event this information is protected by the Federal Confidentiality of Alcohol and Drug Abuse Patient Records regulations: The Federal rules restrict any use of the information to criminally investigate or prosecute any alcohol or drug abuse patient.[facility] CenterIn the event this information is protected by the Federal Confidentiality of Alcohol and Drug Abuse Patient Records regulations: The Federal rules restrict any use of the information to criminally investigate or prosecute any alcohol or drug abuse patient.[facility] CenterIn the event this information is protected by the Federal Confidentiality of Alcohol and Drug Abuse Patient Records regulations: The Federal rules restrict any use of the information to criminally investigate or prosecute any alcohol or drug abuse patient.[facility] CenterIn the event this information is protected by the Federal Confidentiality of Alcohol and Drug Abuse Patient Records regulations: The Federal rules restrict any use of the information to criminally investigate or prosecute any alcohol or drug abuse patient.[facility] CenterIn the event this information is protected by the Federal Confidentiality of Alcohol and Drug Abuse Patient Records regulations: The Federal rules restrict any use of the information to criminally investigate or prosecute any alcohol or drug abuse patient.[facility] CenterIn the event this information is protected by the Federal Confidentiality of Alcohol and Drug Abuse Patient Records regulations: The Federal rules restrict any use of the information to criminally investigate or prosecute any alcohol or drug abuse patient.[facility] CenterIn the event this information is protected by the Federal Confidentiality of Alcohol and Drug Abuse Patient Records regulations: The Federal rules restrict any use of the information to criminally investigate or prosecute any alcohol or drug abuse patient.[facility] CenterIn the event this information is protected by the Federal Confidentiality of Alcohol and Drug Abuse Patient Records regulations: The Federal rules restrict any use of the information to criminally investigate or prosecute any alcohol or drug abuse patient.[facility] CenterIn the event this information is protected by the Federal Confidentiality of Alcohol and Drug Abuse Patient Records regulations: The Federal rules restrict any use of the information to criminally investigate or prosecute any alcohol or drug abuse patient.[facility] CenterIn the event this information is protected by the Federal Confidentiality of Alcohol and Drug Abuse Patient Records regulations: The Federal rules restrict any use of the information to criminally investigate or prosecute any alcohol or drug abuse patient.[facility] CenterIn the event this information is protected by the Federal Confidentiality of Alcohol and Drug Abuse Patient Records regulations: The Federal rules restrict any use of the information to criminally investigate or prosecute any alcohol or drug abuse patient.[facility] CenterIn the event this information is protected by the Federal Confidentiality of Alcohol and Drug Abuse Patient Records regulations: The Federal rules restrict any use of the information to criminally investigate or prosecute any alcohol or drug abuse patient.[facility] CenterIn the event this information is protected by the Federal Confidentiality of Alcohol and Drug Abuse Patient Records regulations: The Federal rules restrict any use of the information to criminally investigate or prosecute any alcohol or drug abuse patient.[facility] CenterIn the event this information is protected by the Federal Confidentiality of Alcohol and Drug Abuse Patient Records regulations: The Federal rules restrict any use of the information to criminally investigate or prosecute any alcohol or drug abuse patient.[facility] CenterIn the event this information is protected by the Federal Confidentiality of Alcohol and Drug Abuse Patient Records regulations: The Federal rules restrict any use of the information to criminally investigate or prosecute any alcohol or drug abuse patient.[facility] CenterIn the event this information is protected by the Federal Confidentiality of Alcohol and Drug Abuse Patient Records regulations: The Federal rules restrict any use of the information to criminally investigate or prosecute any alcohol or drug abuse patient.[facility] Reason for Visit (unrecogniz ed section and content) Reason Comments Non-Chemotherapy Treatment Specialty Diagnoses / Procedures Referred By Rusty south Referred To Contact Diagnoses Iron deficiency anemia due to chronic blood loss Procedures IRON SUCROSE INJECTION PER 1 MG Christine Joseph APRN.DIRECTOR OF SOCIAL MEDIA MARKETING [address] [place] [address] Jay [facility] [address] [place] [address] Referral ID Status Reason Start Date Expiration Date V isits Requested Visits Authorized [id number] Authorized 11/20/2021 05/09/2022 99 99 Reason Comments [...] Care Teams (unrecognized sec tion and content) Beauty School Instructor Relationship Specialty Start Date End Date Mihir Glover MD [address] [place], [place] [id number] PCP - General Internal Medicine 02/19/16 Mauricio Greenfield, DO Primary Staff Physician Cardiology 07/26/18 Beauty School Instructor Relationship Specialty Start Date End Date Mihir Glover MD [address] [facility] [place] [address] PCP - General Internal Medicine 02/19/16 Mauricio Greenfield, DO Primary Staff Physician Cardiology 07/26/18 Beauty School Instructor Relationship Specialty Start Date End Date Mihir Glover MD [address] [facility] [address] PCP - General Internal Medicine 02/19/16 Mauricio Greenfield, DO Primary Staff Physician Cardiology 07/26/18 Beauty School Instructor Relationship Specialty Start Date End Date Mihir Glover MD [address] [facility] [place] [address] PCP - General Internal Medicine 02/19/16 Mauricio Greenfield, DO Primary Staff Physician Cardiology 07/26/18 Beauty School Instructor Relationship Specialty Start Date End Date Mihir Glover MD [address] [facility] [place] [address] PCP - General Internal Medicine 02/19/16 Mauricio Greenfield, DO Primary Staff Physician Cardiology 07/26/18 Beauty School Instructor Relationship Specialty Start Date End Date Mihir Glover MD [address] [facility] [place] [address] PCP - General Internal Medicine 02/19/16 Mauricio Greenfield, DO Primary Staff Physician Cardiology 07/26/18 Beauty School Instructor Relationship Specialty Start Date End Date Mihir Glover MD [address] [facility] [place] [address] PCP - General Internal Medicine 02/19/16 Mauricio Greenfield, DO Primary Staff Physician Cardiology 07/26/18 Beauty School Instructor Relationship Specialty Start Date End Date Mihir Glover MD [address] [facility] [place] [address] PCP - General Internal Medicine 02/19/16 Mauricio Greenfield, DO Primary Staff Physician Cardiology 07/26/18 Beauty School Instructor Relationship Specialty Start Date End Date Mihir Glover MD [address] [facility] [place] [address] PCP - General Internal Medicine 02/19/16 Mauricio Greenfield, DO Primary Staff Physician Cardiology 07/26/18 Beauty School Instructor Relationship Specialty Start Date End Date Mihir Glover MD [address] [place] [address] PCP - General Internal Medicine 02/19/16 Mauricio Greenfield, DO Primary Staff Physician Cardiology 07/26/18 Beauty School Instructor Relationship Specialty Start Date End Date Mihir Glover MD [address] [facility] [place] [address] PCP - General Internal Medicine 02/19/16 Mauricio Greenfield, DO Primary Staff Physician Cardiology 07/26/18 Beauty School Instructor Relationship Specialty Start Date End Date Mihir Glover MD [address] [place], [place] [id number] PCP - General Internal Medicine 02/19/16 Mauricio Greenfield, DO Primary Staff Physician Cardiology 07/26/18 [employer] In[employer] Relationship Specialty Start Date End Date Mihir Glover MD [address] [place] [address] PCP - General Internal Medicine 02/19/16 Mauricio Greenfield, DO Primary Staff Physician Cardiology 07/26/18 [employer] Instructor Relationship Specialty Start Date End Date Love Galvez PCP - General 09/03/05 07/26/13 Pcp, No PCP - General 07/27/13 03/09/14 Pcp, No PCP - General Internal Medicine 06/18/14 08/30/14 Flores Chao MD [address] [place] [address] PCP - General Internal Medicine 08/31/14 02/18/16 Mihir Glover MD [address] [place] [address] PCP - General Internal Medicine 02/19/16 Mauricio Greenfield, DO Primary Staff Physician Cardiology 08/08/14 6 Mauricio Greenfield, DO Primary Staff Physician Cardiology 07/26/18 Mauricio Greenfield, DO Primary Staff Physician Cardiology 07/26/18 [employer] School Instructor Relationship Specialty Start Date End Date Mihir Glover MD [address] [facility] [place] [address] PCP - General Internal Medicine 02/19/16 Mauricio Greenfield, DO Primary Staff Physician Cardiology 07/26/18 [employer] Instructor Relationship Specialty Start Date End Date Mihir Glover MD [address] [facility] [place] [address] PCP - General Internal Medicine 02/19/16 Mauricio Greenfield, DO Primary Staff Physician Cardiology 07/26/18 Mauricio Greenfield, DO Primary Staff Physician Cardiology 07/26/18 [employer] Instructor Relationship Specialty Start Date End Date Mihir Glover MD [address] [place] [address] PCP - General Internal Medicine 02/19/16 Mauricio Greenfield, DO Primary Staff Physician Cardiology 07/26/18 [employer] Instructor Relationship Specialty Start Date End Date Pcp, No PCP - General Internal Medicine 06/18/14 08/30/14 Flores Chao MD [address] [facility] [place] [address] PCP - General Internal Medicine 08/31/14 02/18/16 Mihir Glover MD [address] [facility] [place] [address] PCP - General Internal Medicine 02/19/16 Mauricio Greenfield, DO Primary Staff Physician Cardiology 08/08/14 6 Mauricio Greenfield DO Primary Staff Physician Cardiology 07/26/18 Mauricio Greenfield DO Primary Staff Physician Cardiology 07/26/18 [employer] Instructor Relationship Specialty Start Date End Date Mihir Glover MD [address] [place], [place] [address] PCP - General Internal Medicine 02/19/16 Mauricio Greenfield DO Primary Staff Physician Cardiology 07/26/18 [employer] School Instructor Relationship Specialty Start Date End Date Mihir Glover MD [address] [place], [place] [address] PCP - General Internal Medicine 02/19/16 Mauricio Greenfield DO Primary Staff Physician Cardiology 07/26/18 [employer] School Instructor Relationship Specialty Start Date End Date Love Galvez PCP - General 09/03/05 07/26/13 Pcp, No PCP - General 07/27/13 03/09/14 Pcp, No PCP - General Internal Medicine 06/18/14 08/30/14 Flores Chao MD [address] [place] [address] PCP - General Internal Medicine 08/31/14 02/18/16 Mihir Glover MD [address] [place] [address] PCP - General Internal Medicine 02/19/16 Mauricio Greenfield DO Primary Staff Physician Cardiology 08/08/14 6 Mauricio Greenfield, DO Primary Staff Physician Cardiology 07/26/18 Mauricio Greenfield, DO Primary Staff Physician Cardiology 07/26/18 [employer] Instructor Relationship Specialty Start Date End Date Flores Chao MD [address] [place], [place] [address] [phone] PCP - General Internal Medicine 08/31/14 02/18/16 Mihir Glover MD [address] [place], [place] [id number] [phone] PCP - General Internal Medicine 02/19/16 Mauricio Greenfield, DO Primary Staff Physician Cardiology 08/08/14 6 Mauricio Greenfield, DO Primary Staff Physician Cardiology 07/26/18 Mauricio Greenfield, DO Primary Staff Physician Cardiology 07/26/18 [employer] School Instructor Relationship Specialty Start Date End Date Mihir Glover MD [address] [place] [address] PCP - General Internal Medicine 02/19/16 Mauricio Greenfield, DO Primary Staff Physician Cardiology 07/26/18 Mauricio Greenfield, DO Primary Staff Physician Cardiology 07/26/18 [employer] School Instructor Relationship Specialty Start Date End Date Mihir Glover MD [address] [facility] [place] [address] PCP - General Internal Medicine 02/19/16 Mauricio Greenfield DO [address] [facility] [place] [address] Primary Staff Physician Cardiology 07/26/18 Team Status: Active Member Role Status Dates Dr. Mihir Glover MD Family Provider Active Dr. Mihir Glover MD Primary Care Provider Active Team Status: Inactive Member Role Status Dates Dr. Mihir Glover MD Primary Care Provider Active Dr. Desi Mcghee DO Emergency Provider Active [employer] In[employer] Relationship Specialty Start Date End Date Mihir Glover MD [address] [facility] [place] [address] PCP - General Internal Medicine 02/19/16 Mauricio Greenfield DO [address] [facility] [place] [address] Primary Staff Physician Cardiology 07/26/18 Beauty School Instructor Relationship Specialty Start Date End Date Mihir Glover MD [address] [facility] [place] [address] PCP - General Internal Medicine 02/19/16 Mauricio Greenfield DO [address] [facility] [place] [address] Primary Staff Physician Cardiology 07/26/18 Team Status: [...] Dr. Corey Adorno DO Emergency Provider Active [employer] In[employer] Relationship Specialty Start Date End Date Generic Provider, No [place] [address] PCP - General Coke Still Cleaner 12/25/24 [employer] Instructor Relationship Specialty Start Date End Date Generic Provider, No [place] [address] PCP - General Coke Still Cleaner 12/25/24 [place] [address] [place] [address] Surgeon Cardiothoracic Surgery 01/02/25 Lio Balbuena MD [address] [facility] [address] [place] [address] Referring Physician Interventional Cardiology 01/02/25 [employer] Instructor Relationship Specialty Start Date End Date Mihir Glover MD [address] [place] [address] PCP - General Internal Medicine 01/09/25 [place] [address] Department [place] [address] Surgeon Cardiothoracic Surgery 01/02/25 Lio Balbuena MD [address] [facility] [address] [place] [address] Referring Physician Interventional Cardiology 01/02/25 [employer] School Instructor Relationship Specialty Start Date End Date Mihir Glover MD [address] [place] [address] PCP - General Internal Medicine 01/09/25 [place] [address] Department [place] [address] Surgeon Cardiothoracic Surgery 01/02/25 Lio Balbuena MD [address] [facility] [address] [place] [address] Referring Physician Interventional Cardiology 01/02/25 [employer] School Instructor Relationship Specialty Start Date End Date Mihir Glover MD [address] [place] [address] PCP - General Internal Medicine 01/09/25 [place] [address] Department [place] [address] Surgeon Cardiothoracic Surgery 01/02/25 Lio Balbuena MD [address] [facility] [address] [place] [address] Referring Physician Interventional Cardiology 01/02/25 Team Status: Active Member Role/Relationship Status Dates Dr. Mihir Glover MD Primary Care Provider Active Team Status: Active Member Role/Relationship Status Dates Dr. Mihir Glover MD Primary Care Provider Active Start: January 19, 2025 VITO CHAN Attending Provider Active Start: January 19, 2025 VITO CHAN Referring Provider Active Start: January 19, 2025 Team Status: Inactive Member Role/Relationship Status Dates Dr. Mihir Glover MD Primary Care Provider Active Start: January 20, 2025 End: January 20, 2025 Dr. Gaston Guzman DO Emergency Provider Active Start: January End: January 20, 2025 [employer] Instructor Relationship Specialty Start Date End Date Mihir Glover MD [address] [facility] [place] [address] PCP - General Internal Medicine 01/09/25 [place] [address] Department [place] [address] Surgeon Cardiothoracic Surgery 01/02/25 Lio Balbuena MD [address] [facility] [address] [facility] [place] [address] Referring Physician Interventional Cardiology 01/02/25 Scheduled Active [...] Lona Penn RN)1444 (Given - Provider: Marian Alexander RN)2130 (Given - Provider: Maggie Aguero RN) 0425 [...] at 1430 0940 (Given - Provider: Marian Alexander, MARISOL) furosemide (Lasix) injection 20 mg 20 mg, intravenous, Daily, First dose (after last modification) on Wed01/14/25 at 0900 0900 (Given - Provider: Kita Sanchez RN) furosemide (Lasix) injection 40 mg (CANCELED) 40 mg, intravenous, Daily, First dose (after last modification) on 01/13/25 at 0900 0852 (Given - Provider: Kita Sanchez RN) heparin (porcine) injection 5,000 Units 5,000 Units, subcutaneous, Every 8 hours, First dose on Wed01/10/25 at 0645 0610 (Given - Provider: Lona Penn RN)1352 (Held by provider - Provider: Ashley Alcala, JOSR-DIRECTOR OF [employer]IA MARKETING, JOSR-[employer]ER - Reason: Other - Comment: Thrombocytopenia 84 K)1445 (Not Given - Provider: Marian Alexander RN - Reason: See Provider Order)2245 (Not Given - Provider: Maggie Aguero RN - Reason: Patient/family refused) 0645 (Not Given - Provider: Maggie trejo RN - Reason: See Provider Order)0942 (Unheld by provider - Provider: Ashley Alcala, JOSR-DIRECTOR OF SOCIAL [employer]IA MARKETING, JOSR-JASS)1348 (Given - Provider: Kita Sanchez RN)2106 (Given - Provider: Maggie trejo RN) 0618 (Given - Provider: Maggie trejo RN)1428 (Canceled Entry - Provider: Kita Sanchez RN)2245 (Due) iron polysaccharides (Nu-Iron,Niferex) capsule 150 mg 150 mg, oral, Daily, First dose on Dalia 01/11/25 at 0900 0938 (Given - Provider: Marian Alexander RN) 0852 (Given - Provider: Kita Sanchez RN) 0901 (Given - Provider: Kita Sanchez RN) methocarbamol (Robaxin) tablet 500 mg (COMPLETED) 500 mg, oral, Every 6 hours, First dose (after last modification) on Wed01/10/25 at 1400, For 10 doses 0319 (Given - Provider: Lona Penn RN)0937 (Given - Provider: Marian Alexander, MARISOL)1444 (Given - Provider: Marian Alexander, MARISOL)2132 (Given - Provider: Maggie Aguero RN) metoprolol tartrate (Lopressor) tablet 12.5 mg 12.5 mg, oral, 2 times daily, First dose on Wed01/10/25 at 0900 0937 (Given - Provider: Marian Alexander RN)2130 (Given - Provider: Maggie Aguero RN) 0852 (Given - Provider: Kita Sanchez RN)2111 (Not Given - Provider: Maggie trejo RN [...] dilution, intravenous, Once in imaging, Starting on 01/13/25 at 1041, For 1 dose, CV Medications, [...] RN) 0852 (Given - Provider: Kita Sanchez RN)2147 (Not Given - Provider: Maggie trejo RN - Reason: Patient/family refused) 0901 (Given - Provider: Kita Sanchez RN)2100 (Due) [...] Comment: Okay to give per Dr Cem Damian) naloxone (Narcan) injection 0.2 mg 0.2 mg, [...] pain scores based on patient preference? Yes 1147 (Given - Provider: Marian Alexander, RN) 0425 (Given - Provider: Maggie Aguero [...] BE BASED ON THE PRIMARY CLINICAL RECORDS. [employer] provides no warranty or guarantee of the accuracy or completeness of information in this document.
[2025-01-27 19:28] LABS: Hematocrit 35.4 % (37-47); Hemoglobin 11.6 g/dL (12.0-15.0); Immature Granulocytes Count 0.040 X10^3/uL (0.0-0.0); Mean Corp Hgb Conc 32.8 g/dL (32-36); Mean Corpuscular Volume 87.0 fL (81-99); Mean Platelet Vol. 12.1 fl (6.2-12.0); NRBC Flagged by Analyzer 0 % (0-5); Platelet Count 316 K/mm3 (150-450); RBC Distribution Width CV 14.1 % (11.6-14.6); RBC Distribution Width SD 44.7 fl (35.1-43.9); Red Blood Count 4.07 M/mm3 (4.2-5.4); White Blood Count 11.0 K/mm3 (4.4-11.0)
[2025-01-27 19:48] LABS: Anion Gap 11 (5-15); BUN 16 mg/dL (4-19); BUN/Creat Ratio 17.8 RATIO (10-20); Calcium,Total 8.6 mg/dL (7.6-11.0); Carbon Dioxide 22.2 mmol/L (21.0-32.0); Chloride 105 mmol/L (98-108); Estimated Creatinine Clearance 93.65 ml/min (50-250); Glucose 106 mg/dL (70-99); Potassium 3.5 mmol/L (3.3-5.1); Troponin T High Sensitivity 60 ng/L (<=14)
[2025-01-27 20:00] LABS: D-Dimer Quantitative (DVT/PE) 3.68 FEU/ug/m (0.27-0.49)
[2025-01-27 20:27] VITALS: BP 115/70; PULSE 88; O2SAT 100
--- NOTE | 2025-01-27 20:55 | CT_ITS ---
PROCEDURE: CTA CHEST W/WO CONTRAST 01/27/2025 REASON FOR EXAM: RECENT SURGERY, PLEURITIC CHEST PAIN, DYSPNEA ELEV TECHNIQUE: Procedure Code: [id number] Modality: CT Procedure: CTA CHEST W/WO CONTRAST Multiplanar Sagittal and Coronal images were obtained. CONTRAST: Please see CT VOLUME: Please see CT mL One or more dose reduction techniques were used (e.g., Automated exposure control, adjustment of the mA and/or kV according to patient size, use of iterative reconstruction technique). RADIATION DOSE SUMMARY: CTDlvol: Please see CT mGy DLP: 522.47 mGycm COMPARISON: Chest CT January 20, 2025. FINDINGS: Pulmonary arteries: Diameter of the main pulmonary trunk at 2.9 cm is within normal range. Enhancement of the pulmonary arteries is preserved bilaterally through the segmental levels, without evidence of acute appearing intraluminal occlusive pulmonary embolus. Evaluation of some smaller peripheral branches distal to the segmental levels is nondiagnostic on this study secondary to excessive motion related misregistration artifact. Clinical correlation is advised. A central intraluminal filling defect is noted within the right internal jugular vein (image 254, axial sequence) possibly representing admixture of unopacified contrast, however DVT can not be ruled out on this study. If there is suspicion for right upper extremity/IVC DVT, consider ultrasound for complete evaluation. Heart: Cardiac size is borderline. Pacemaker leads are seen. Ventricular ratio is maintained. No cardiac chamber filling defect is seen to suggest cardiac thrombus. Metallic density noted at the mitral valve. Small pericardial effusion. Evaluation of coronary arteries is limited by motion artifact. Myocardial ischemia can not be assessed on this study. Aorta: The aortic root is not dilated. The thoracic aorta is borderline, measuring 3.9 cm at the ascending portion. No discrete thoracic aortic aneurysm. No thoracic aortic dissection. Three-vessel branch pattern noted off the aortic arch. Visualized proximal great vessels within the superior mediastinum are preserved. Mediastinum: No mediastinal hematoma. Soft tissue stranding within the anterior mediastinal fat may represent recent postsurgical change. Any possibility of mild mediastinitis to be correlated clinically. No mediastinal soft tissue emphysema. Lymph nodes: Mediastinal and hilar lymph nodes are noted but not appearing pathologic by size criteria. Esophagus: No periesophageal inflammation. No hiatal hernia. Thyroid: Heterogeneous diffuse enlargement of the visualized thyroid gland. AP isthmic thickness is 21 mm. Partially calcified heterogeneously hypoenhancing 2.3 cm right anterior lower pole thyroid mass. Clinical correlation is advised. Correlation with thyroid function and nonemergent ultrasound is advised. Lungs: Valdez airspace opacities noted at the lung bases, ulcm-[id number]-right likely due to compressive atelectasis, however aspiration/pneumonia could have identical imaging appearance. Clinical correlation with symptoms. Radiographic follow-up to confirm resolution is advised. No bronchiectasis or significant peribronchial thickening. Pleura: Small right and moderately large left pleural and subpulmonic effusions. There is no pneumothorax. Upper abdomen: No free air or free fluid within the visualized upper most abdomen. Body wall: No body wall hematoma or soft tissue emphysema. Left anterior chest wall pacemaker device noted. Osseous: Median sternotomy changes noted. Mild soft tissue swelling around the manubrium sternum may represent recent postsurgical change, any possibility of infection to be correlated clinically. Mild degenerative changes of the spine and bony thorax. CT/CTA Chest W/WO Contrast IMPRESSION: No evidence for acute pulmonary embolus through the segmental levels. Study limitations discussed above. - Intraluminal filling defect within the visualized right internal jugular vein m ay represent flow artifact, however DVT can not be ruled out by this study. Findings and recommendations discussed above. - Fkocl-ok-wgghrjzk pleural effusions. Pulmonary opacities to be correlated for significance as discussed above. - Mediastinal soft tissue changes may represent recent postsurgical change, any p ossibility of mediastinitis or infection to be correlated clinically. - Indeterminate thyroid lesion. Nonemergent recommendations discussed above. - Other findings discussed above in detail. Reading Location: [id number]
[2025-01-27 21:23] LABS: Troponin T High Sens 2 HR 45 ng/L (<=14)
[2025-01-27 22:00] VITALS: BP 98/71; PULSE 88; O2SAT 99
[2025-01-27 22:56] VITALS: BP 98/71; PULSE 88; RESP 20; TEMP 36.7; O2SAT 99
--- NOTE | 2025-01-27 22:56 | EX.ED.DYSGE1 ---
HPI History of Present Illness Chief Complaint: Shortness of Breath Detail of Chief Complaint: Bilateral pleuritic chest pain Informant: patient Onset/Context/Timing Onset: Today Context: Sudden Onset Timing: Continuous Quality: Dyspnea and bilateral pleuritic chest pain located under right and left adeola Location: Inferior to the right and left breast Current Severity: Mild Maximum Severity: Moderate Worsened by: Dyspnea, dyspnea on exertion and pleuritic chest pain with slight nonproduc Relieved by: Nothing Associated Symptoms Associated Symptoms: No history of fever, chills night sweats. Narrative Narrative: Patient is a 49-year-old woman. She had mitral valve repair January 09. She was seen on January [address] Pereira. Her troponins were elevated at that time. Patient's diagnosis at time is mild CHF, chronic anemia and recent mitral valve repair for mitral regurgitation. Her blood work revealed a mild anemia. Her urine was negative. Patient presents today because of bilateral anterior lower chest pain that is pleuritic and radiates through to the back. She denies history of PE or DVT. She denies leg pain, swelling discoloration. She denies any ripping or tearing pain. She denies fever, chills night sweats. Denies rhinorrhea, congestion postnasal drainage. Denies sore throat. She does have a slight cough. The cough is nonproductive. She has not been using her incentive spirometer recently. She denies abdominal pain, nausea, vomiting or diarrhea. She has no urologic symptoms. Recent Illness/Hospitalization: Yes [facility] Medical History Wears glasses Wears dentures Marijuana use Easy bruising Restless legs Migraine headache Heartburn Former smoker Sleep apnea History of edema History of echocardiogram Cardiology follow-up encounter History of pacemaker Iron deficiency anemia PTSD (post-traumatic stress disorder) Deliberate self-cutting Bulimia Panic anxiety syndrome History of complete heart block Home Medications ?Medication ?Instructions ?Recorded ?Last Taken ?Type lorazepam 0.5 mg tablet 0.5 mg PO DAILY PRN PRN Anxiety 01/30/22 02/05/22 History aspirin 81 mg tablet,delayed 81 mg PO DAILY 01/20/25 01/20/25 History release furosemide 20 mg tablet 20 mg PO DAILY 01/20/25 01/20/25 History furosemide 20 mg tablet (Lasix) 20 mg PO DAILY 5 days #5 tabs 01/20/25 Unknown Rx metoprolol succinate 25 mg 12.5 mg PO BID 01/20/25 01/20/25 History tablet,extended release 24 hr prednisone 20 mg tablet 60 mg (3 x 20 mg) PO DAILY #15 01/27/25 Unknown Rx TABLETS Allergy/AdvReac Type Severity Reaction Status Date / Time sertraline (From Zoloft) Allergy Mild Other Verified 01/20/25 00:30 morphine Allergy Itching Verified 01/27/25 18:31 tramadol Allergy Nausea Verified 01/20/25 00:30 Antihistamines - AdvReac Other Verified 01/20/25 00:30 Ethylenediamine naproxen AdvReac Other Verified 01/20/25 00:30 paroxetine HCl (From Paxil) AdvReac Other Verified 01/20/25 00:30 Family History Other Cardiac defibrillator in place Surgical History Hx of section History of endometrial ablation History of cardiac catheterization History of implantable cardiac defibrillator (ICD) Social History housing: house Smoking Status: Never smoker ROS ROS ED Constitutional Constitutional ED: Denies chills, fever(s), subjective, sweats or weight loss Eyes Eyes: Denies blurry vision or change in vision ENT ENT ED: Denies ear pain, rhinorrhea or sore throat Cardiovascular Cardiovascular: Reports chest pain; Denies orthopnea, palpitations, paroxysmal nocturnal dyspnea or racing heartbeat Respiratory/Chest Respiratory/Chest: Reports cough, dyspnea and dyspnea on exertion; Denies orthopnea or paroxysmal nocturnal dyspnea Gastrointestinal Gastrointestinal: Denies abdominal pain, melena, nausea or vomiting Genitourinary Genitourinary ED: Denies dysuria, hematuria or urinary frequency Musculoskeletal Musculoskeletal: Denies arthralgias, back pain or myalgias Integumentary Denies rash Neurologic Neurologic: Denies headache(s), paresthesias or weakness Psychiatric Psychiatric: Denies anxiety or depression Endocrine Endocrinology: Denies cold intolerance or heat intolerance Hematologic/Lymphatic Hematologic/Lymphatic: Reports systems reviewed and no addt'l complaints, except as documented EXAM Physical Exam Narrative Exam Narrative: Patient's vitals are marked for tachycardia. She is not hypoxic. Const Vital Signs: 01/27/25 18:28 01/27/25 18:55 01/27/25 20:27 Temperature 98.3 F Temperature Source Oral Pulse Rate 102 H 88 Respiratory Rate 18 Respiratory Effort Non-Labored Short of Breath Respiratory Depth Normal Respiratory Pattern Normal Blood Pressure 136/96 H 115/70 Blood Pressure Mean 109 85 Pulse Ox 99 100 Oxygen Delivery Method Room Air Room Air 01/27/25 22:00 01/27/25 22:56 Temperature 98.1 F Temperature Source Pulse Rate 88 88 Respiratory Rate 20 H Respiratory Effort Respiratory Depth Respiratory Pattern Blood Pressure 98/71 98/71 Blood Pressure Mean 80 80 Pulse Ox 99 99 Oxygen Delivery Method Positive well nourished and well developed Constitutional Narrative: BMI is 32.2. General Appearance ED: well developed and pallor HEENT Reports moist mucous membranes HEENT Narrative: Head is atraumatic normocephalic. Ears normal. Nares patent. Eyes PERRL and EOMs intact bilaterally General Eye ED: Negative for pale conjunctiva or scleral icterus Neck no lymphadenopathy, supple and no JVD Chest Wall inspection of chest normal and palpation of chest normal Chest Narrative: Healing median sternotomy scar noted. There is no evidence infection. Resp normal respiratory effort and No clear to auscultation bilaterally Resp Narrative: Bibasilar rales left greater than right. Cardio regular rhythm, S1 normal heart sound, S2 normal heart sound and no murmurs Rate: tachycardic GI normal to inspection, nondistended, normoactive bowel sounds, non-tender, non-distended and no masses; Negative for hepatosplenomegaly Auscultation: normoactive bowel sounds Palpation: soft Back/Spine no CVA tenderness Extremity normal to inspection Extremity Narrative: There is no asymmetry, swelling, discoloration, leg vein distention, palpable cords or tenderness along the distribution of the deep venous system. General Extremety ED: Negative for edema or tenderness General Extremity: Negative for edema Neuro oriented x3 and CN's II-XII intact bilaterally Sensorium / Orientation: alert Psych mental status grossly normal Skin no rashes or lesions noted, no wounds and skin turgor normal General Skin Exam: pallor; Negative for elasticity normal or jaundice MDM MDM MDM Narrative Medical decision making narrative: Differential diagnosis is pulmonary embolus, pneumonia, pneumothorax, exacerbation CHF, noncardiac chest pain, cardiac chest pain i.e. ischemia, myocarditis/pericarditis. Workup included EKG, chest x-ray and appropriate blood work. History & Record Review Additional record(s) reviewed:: Prior ED visit (Visit for January 20 was reviewed as well as laboratory studies.) and Prior labs Lab Data Attestation: I reviewed the patient's lab results. Lab results narrative: White count reveals mild anemia with normal indices. Electrolyte panel is remarked for slight elevation in glucose 106 with normal CO2 and a gap. First troponin was 60. Second troponin was 45. This is due to her recent surgery. D-dimer was elevated. Could not correct for age. Labs: Laboratory Results - last 24 hr 01/27/25 01/27/25 01/27/25 18:15 18:56 20:56 WBC 11.0 RBC 4.07 L Hgb 11.6 L Hct 35.4 L MCV 87.0 MCH 28.5 MCHC 32.8 RDW Std Deviation 44.7 H RDW Coeff of Hortencia 14.1 Plt Count 316 MPV 12.1 H Immature Gran % (Auto) 0.400 Neut % (Auto) 68.4 Lymph % (Auto) 21.8 [place] % (Auto) 5.6 Eos % (Auto) 3.1 Baso % (Auto) 0.7 Absolute Neuts (auto) 7.5 Absolute Lymphs (auto) 2.41 Nucleated RBC % 0 D-Dimer Quant (PE/DVT) 3.68 H* Sodium 138 Potassium 3.5 Chloride 105 Carbon Dioxide 22.2 Anion Gap 11 BUN 16 Creatinine 0.91 Estim Creat Clear Calc 93.65 Est GFR (MDRD) Non-Af 77 BUN/Creatinine Ratio 17.8 Glucose 106 H Calcium 8.6 Troponin T High Sens 60 H* D Troponin T Hi Sens 2 Hr 45 H Radiography Diagnostic Testing: Clinical Impression(s) from Imaging Studies Chest X-Ray 01/27/25 19:01 IMPRESSION: Slight worsening opacity at the left lung base, differential and recommendations discussed above. - Other findings discussed above. Reading Location: [id number] Chest CTA 01/27/25 20:55 IMPRESSION: No evidence for acute pulmonary embolus through the segmental levels. Study limitations discussed above. - Intraluminal filling defect within the visualized right internal jugular vein may represent flow artifact, however DVT can not be ruled out by this study. Findings and recommendations discussed above. - Ttsci-hs-ucpdctca pleural effusions. Pulmonary opacities to be correlated for significance as discussed above. - Mediastinal soft tissue changes may represent recent postsurgical change, any possibility of mediastinitis or infection to be correlated clinically. - Indeterminate thyroid lesion. Nonemergent recommendations discussed above. - Other findings discussed above in detail. Reading Location: [id number] Treatment and Re-Evaluation :: With no obvious infiltrate on chest x-ray and small effusion on the left and elevated D-dimer with recent surgery CTA of the chest was obtained to rule out PE. The report was reviewed. Will treat for pleurisy. She was treated with prednisone since NSAIDs are contraindicated. Discharge Plan Triage Chief Complaint: Shortness of Breath ED Provider: Adriano Martin Dx/Rx/DC Orders Clinical Impression: Pleurisy with effusion, Dyspnea, Elevated troponin, Acute atelectasis Instructions: ED Atelectasis, ED Pleurisy Prescriptions: New prednisone 20 mg tablet 60 mg PO DAILY Qty: 15 0RF No Action lorazepam 0.5 mg tablet 0.5 mg PO DAILY PRN PRN (Reason: Anxiety) furosemide 20 mg tablet 20 mg PO DAILY metoprolol succinate 25 mg tablet extended release 24 hr 12.5 mg PO BID aspirin 81 mg tablet,delayed release (DR/EC) 81 mg PO DAILY furosemide [Lasix] 20 mg tablet 20 mg PO DAILY 5 Days Qty: 5 0RF Primary Care Provider: Mihir Glover Referrals: Mihir Glover MD [Primary Care Provider, Internal Medicine] - 3-5 Days if not improving Activity Restrictions/Additional Instructions: 1. Take prednisone until gone. 2. Use your incentive spirometer every 1-2 hours. Print Language: Armenian Disposition Disposition: Home, Self Care
== END 2025-01-27 23:05 | disposition home or self-care (01) ==
PROVIDERS: Emergency Provider Emergency Medicine; PCP Internal Medicine; Visit Provider Emergency Medicine
DX: J90 Pleural effusion, not elsewhere classified (principal); I50.9 Heart failure, unspecified; I44.2 Atrioventricular block, complete; R06.00 Dyspnea, unspecified; R79.89 Other specified abnormal findings of blood chemistry; J98.11 Atelectasis; Z95.2 Presence of prosthetic heart valve; D64.9 Anemia, unspecified; I34.0 Nonrheumatic mitral (valve) insufficiency; F41.0 Panic disorder [episodic paroxysmal anxiety]; F43.10 Post-traumatic stress disorder, unspecified; Z79.82 Long term (current) use of aspirin; Z79.899 Other long term (current) drug therapy; Z87.891 Personal history of nicotine dependence; Z95.810 Presence of automatic (implantable) cardiac defibrillator
CPT/HCPCS: 71046; 71275; 80048; 84484; 85025; 85379; 93005; 99283; Q9967; A4216

== ENCOUNTER 2025-02-17 10:13 | Emergency (ER) | payer MEDICAID, SELFPAY ==
[2025-02-17 10:15] VITALS: BP 143/90; PULSE 101; RESP 18; TEMP 37; O2SAT 100; BMI 31.9
--- NOTE | 2025-02-17 10:43 | ED.VIS.CHEST ---
HPI History of Present Illness Chief Complaint: Chest Pain Narrative Narrative: Patient is a 49-year-old female presenting to the emergency department for chest pain that started yesterday evening. Describes it as midsternal to left-sided and radiates into her ribs and spine. She has a significant cardiac history including congenital heart block? Originally had a pacemaker placed however then developed heart failure with an ejection fraction of 20% and had a ICD placed. 5 weeks ago she had open heart surgery with mitral valve repair at [facility] by Dr. Armstrong. She states that the surgery went well and she went home after 5 days in the hospital. States that her pain was well-controlled with Tylenol until yesterday. Reports that she has worsening chest pain with deep inspiration. Denies shortness of breath. Denies history of PE or DVT. Denies any lower extremity edema. Denies fever, chills, nausea, vomiting. Denies abdominal pain. Denies the chest pain as ripping or tearing. [facility] Medical History Wears glasses Wears dentures Marijuana use Easy bruising Restless legs Migraine headache Heartburn Former smoker Sleep apnea History of edema History of echocardiogram Cardiology follow-up encounter History of pacemaker Iron deficiency anemia PTSD (post-traumatic stress disorder) Deliberate self-cutting Bulimia Panic anxiety syndrome History of complete heart block Home Medications ?Medication ?Instructions ?Recorded ?Last Taken ?Type lorazepam 0.5 mg tablet 0.5 mg PO DAILY PRN PRN Anxiety 01/30/22 02/05/22 History aspirin 81 mg tablet,delayed 81 mg PO DAILY 01/20/25 01/20/25 History release furosemide 20 mg tablet 20 mg PO DAILY 01/20/25 01/20/25 History furosemide 20 mg tablet (Lasix) 20 mg PO DAILY 5 days #5 tabs 01/20/25 Unknown Rx metoprolol succinate 25 mg 12.5 mg PO BID 01/20/25 01/20/25 History tablet,extended release 24 hr prednisone 20 mg tablet 60 mg (3 x 20 mg) PO DAILY #15 01/27/25 Unknown Rx TABLETS lidocaine 5 % topical patch 1 patch topical DAILY #15 ea 02/17/25 Unknown Rx (Lidoderm) methocarbamol 500 mg tablet 500 mg PO BID #10 tabs 02/17/25 Unknown Rx oxycodone 5 mg capsule 5 mg PO Q8H PRN pain 3 days #10 02/17/25 Unknown Rx caps Allergy/AdvReac Type Severity Reaction Status Date / Time sertraline (From Zoloft) Allergy Mild Other Verified 02/17/25 10:14 morphine Allergy Itching Verified 02/17/25 10:14 tramadol Allergy Nausea Verified 02/17/25 10:14 Antihistamines - AdvReac Other Verified 02/17/25 10:14 Ethylenediamine naproxen AdvReac Other Verified 02/17/25 10:14 paroxetine HCl (From Paxil) AdvReac Other Verified 02/17/25 10:14 Family History Other Cardiac defibrillator in place Surgical History History of open heart surgery Hx of section History of endometrial ablation History of cardiac catheterization History of implantable cardiac defibrillator (ICD) Social History housing: house Smoking Status: Never smoker ROS ROS ED ROS Narrative See HPI EXAM Physical Exam Narrative Exam Narrative: Vital signs: Reviewed General: Alert and oriented x 3. No acute distress. Tearful HEENT: Head is normocephalic and atraumatic, sinuses nontender, pupils equal round and reactive. Nares are patent. Oropharynx and throat exams normal. Neck: Supple without lymphadenopathy nontender Cardiovascular: Tachycardic rate and regular rhythm, no murmurs. No rubs or gallops. Normal S1 and S2. Radial and DP/PT pulses are 2+ and symmetric in all extremities. Respiratory: Clear to auscultation bilaterally. No wheezes, rales, rhonchi Chest: Vertical surgical incision is healing well. There is no erythema, warmth, fluctuance or crepitus noted. Under the left breast there is some reproducible tenderness to palpation. Abdominal: Soft and nontender. Normal bowel sounds. No guarding or rebound. Nonsurgical abdomen Extremities: No lower extremity edema, erythema or tenderness to palpation of calves. No tenderness. No bruising. Normal range of motion. Normal sensation. Skin: No rash or redness. Neurological: Cranial nerves II through XII are grossly intact. Normal strength and sensation. Normal cerebellar function The rest of the physical exam is unremarkable Const Vital Signs: 02/17/25 10:15 02/17/25 10:33 02/17/25 11:14 Temperature 98.6 F Temperature Source Temporal Pulse Rate 101 H 84 Respiratory Rate 18 17 Respiratory Effort Short of Breath Blood Pressure 143/90 H 111/76 Blood Pressure Mean 107 87 Pulse Ox 100 99 Oxygen Delivery Method Room Air 02/17/25 12:00 02/17/25 13:00 02/17/25 13:59 Temperature 97.8 F Temperature Source Pulse Rate 84 83 81 Respiratory Rate 17 19 H 14 Respiratory Effort Blood Pressure 107/76 98/70 104/77 Blood Pressure Mean 87 81 86 Pulse Ox 96 99 100 Oxygen Delivery Method MDM MDM MDM Narrative Medical decision making narrative: Patient is a 49-year-old female presenting to the emergency department for chest pain that started yesterday. Patient was seen and examined. Vitals are stable. She is mildly tachycardic between 90 and 105. She is tearful and anxious. No acute distress. Differential includes but is not limited to. With recent open heart surgery 5 weeks ago, PE, pericarditis, myocarditis, failure of the mitral valve repair, ACS, less likely aortic pathology. With the patient's reproducible left-sided chest pain, musculoskeletal cause of CP. EKG shows atrial sensed ventricular paced rhythm at a rate of 94. Using Sgarbossa's criteria there is no significant discordance or concordance. Compared to recent EKG obtained on January 27, 2025 it appears similar. No evidence of pericarditis on EKG. CBC with no leukocytosis and a normal hemoglobin. BMP with no significant abnormalities. Troponin and reflex are 15 and 12. On her recent ED visit it was much higher. BNP within normal limits. On my review of the CTA there appears to be no aortic dissection. No obvious pulmonary embolism. There is a left-sided pleural effusion that appears similar in size to her prior CTs. Radiology read with no aortic dissection or other acute chest and abdomen and pelvis findings. Given the patient's recent open heart surgery at I did consult their cardiothoracic surgeon on-call, Dr. Mariana Mcdonough, to discuss the patient's presentation and negative workup and further recommendations. She states that the patient had a echo 3 days ago and the mitral valve looked good and her EF was stable from prior echoes. She agrees that this is likely musculoskeletal in nature and recommends Lidoderm patches, Robaxin or tramadol for pain control. I updated the patient on the negative workup. She states that the chest pain is much improved after the Percocet given here. She was prescribed the above medications recommended by the chip person. It was recommended that she follow-up with Dr. Armstrong, the cardiothoracic surgeon who did her surgery as soon as possible. Patient discharged from the Emergency Department. I do not feel that the patient's evaluation reveals any acute reason for admission at this time. I instructed them to either follow-up with their primary care physician or promptly return to the Emergency Department for reevaluation should symptoms worsen or new symptoms develop. I explained what symptoms would indicate the need to return to the emergency department. Shared decision making was used. The patient voiced understanding of the treatment plan and is agreeable with it. Clinical impression Chest pain History & Record Review Discussion w/independent historian: Patient Lab Data Attestation: I reviewed the patient's lab results. Labs: Laboratory Results - last 24 hr 02/17/25 02/17/25 10:36 12:36 WBC 9.2 RBC 4.91 Hgb 13.4 Hct 42.2 MCV 85.9 MCH 27.3 MCHC 31.8 L RDW Std Deviation 42.3 RDW Coeff of Hortencia 13.4 Plt Count 169 MPV 12.6 H Immature Gran % (Auto) 0.300 Neut % (Auto) 75.2 H Lymph % (Auto) 18.2 L [place] % (Auto) 5.1 Eos % (Auto) 0.9 Baso % (Auto) 0.3 Absolute Neuts (auto) 6.9 Absolute Lymphs (auto) 1.68 Nucleated RBC % 0 Sodium 138 Potassium 3.8 Chloride 104 Carbon Dioxide 23.1 Anion Gap 10 BUN 15 Creatinine 0.90 Estim Creat Clear Calc 94.28 Est GFR (MDRD) Non-Af 79 BUN/Creatinine Ratio 16.5 Glucose 142 H Calcium 8.9 Troponin T High Sens 15 H D Troponin T Hi Sens 2 Hr 12 NT pro BNP II 439 Radiography Diagnostic Testing: Clinical Impression(s) from Imaging Studies Chest/Abdomen/Pelvis CTA 02/17/25 10:45 IMPRESSION: No aortic dissection or other acute chest and abdomen and pelvis findings. Reading Location: [facility] Discharge Plan Triage Chief Complaint: Chest Pain ED Provider: Hollie Jackman Dx/Rx/DC Orders Clinical Impression: Chest pain of uncertain etiology Instructions: ED Chest Pain, Uncertain Cause, ED Chest Wall Strain Prescriptions: New lidocaine [Lidoderm] 5 % adhesive patch,medicated 1 patch topical DAILY Qty: 15 0RF Rx Instructions: leave on most painful area for up to 12 hrs methocarbamol 500 mg tablet 500 mg PO BID Qty: 10 0RF oxycodone 5 mg capsule 5 mg PO Q8H PRN (Reason: pain) 3 Days Qty: 10 0RF No Action lorazepam 0.5 mg tablet 0.5 mg PO DAILY PRN PRN (Reason: Anxiety) furosemide 20 mg tablet 20 mg PO DAILY metoprolol succinate 25 mg tablet extended release 24 hr 12.5 mg PO BID aspirin 81 mg tablet,delayed release (DR/EC) 81 mg PO DAILY furosemide [Lasix] 20 mg tablet 20 mg PO DAILY 5 Days Qty: 5 0RF prednisone 20 mg tablet 60 mg PO DAILY Qty: 15 0RF Stand Alone Forms: Work / School Excuse Primary Care Provider: Mihir Glover Referrals: Gordon Armstrong MD [Non-Staff, Thoracic Surgery] - As soon as possible Mihir Glover MD [Primary Care Provider, Internal Medicine] Activity Restrictions/Additional Instructions: Your evaluation in the Emergency Department did not reveal any acute reason for admission. However, I want to emphasize that you may be early in the course of a disease process or illness even if it is not present. For this reason you should follow-up within 24 hours for reevaluation with either your primary care physician or if necessary back here in the Emergency Department. You should return to the Emergency Department immediately if your symptoms worsen or new symptoms develop. Print Language: Malawian Disposition Disposition: Home, Self Care Discharge Date/Time: 02/17/25 14:17
[2025-02-17] MEDS: HYDROcodone Bitartrate/Apap 5/325 Tablet PO (10:44)
--- NOTE | 2025-02-17 10:45 | CT_ITS ---
PROCEDURE: CTA CHST, ABD, PEL W AND/OR WO 02/17/2025 REASON FOR EXAM: OPEN HEART SRGY 5 WKS AGO,CP/SOB,R/T PE/AORTIC TECHNIQUE: Procedure Code: CTCTA.CHAP.2 Modality: CT Procedure: CTA CHST, ABD, PEL W AND/OR WO Coronal and Sagittal reconstruction series were provided. One or more dose reduction techniques were used (e.g., Automated exposure control, adjustment of the mA and/or kV according to patient size, use of iterative reconstruction technique. CONTRAST: Isovue 370 VOLUME: 96 mL RADIATION DOSE SUMMARY: CTDlvol: 24.01 mGy DLP: 1998.53 mGycm COMPARISON: CTA chest January 27, 2025. FINDINGS: CHEST: Lines and tubes: A left-sided AICD device. Status post median sternotomy. Mediastinum: Unremarkable. Heart: No cardiomegaly. Atherosclerotic calcifications of the coronary arteries. Thoracic Aorta: Atherosclerotic calcifications. No aneurysm. Lungs and Airways: Large left pleural effusion with atelectasis. Pleura: Large left pleural effusion. Bones: No acute bony abnormalities. Status post median sternotomy. Other: None. ABDOMEN AND PELVIS: Liver: Unremarkable. Gallbladder: Unremarkable. No biliary dilation. Spleen: Unremarkable. Pancreas: Unremarkable. Adrenals: Unremarkable. Kidneys: Unremarkable. Bladder: Unremarkable. Reproductive Organs: Unremarkable. Bowel: No bowel obstruction. No bowel wall thickening. Vasculature: No aneurysm. Peritoneum / Retroperitoneum: No free air or free fluid. Bones: No acute bony abnormalities. CT/CTA Chst, Abd, Pel W and/or WO IMPRESSION: No aortic dissection or other acute chest and abdomen and pelvis findings. Reading Location: [facility]
[2025-02-17 10:53] LABS: Hematocrit 42.2 % (37-47); Hemoglobin 13.4 g/dL (12.0-15.0); Immature Granulocytes Count 0.030 X10^3/uL (0.0-0.0); Mean Corp Hgb Conc 31.8 g/dL (32-36); Mean Corpuscular Volume 85.9 fL (81-99); Mean Platelet Vol. 12.6 fl (6.2-12.0); NRBC Flagged by Analyzer 0 % (0-5); Platelet Count 169 K/mm3 (150-450); RBC Distribution Width CV 13.4 % (11.6-14.6); RBC Distribution Width SD 42.3 fl (35.1-43.9); Red Blood Count 4.91 M/mm3 (4.2-5.4); White Blood Count 9.2 K/mm3 (4.4-11.0)
--- NOTE | 2025-02-17 11:06 | EKG12_ITS ---
Test Reason : CP Blood Pressure : */* mmHG Vent. Rate : 94 BPM Atrial Rate : 94 BPM P-R Int : 126 ms QRS Dur : 154 ms QT Int : 416 ms P-R-T Axes : 74 248 73 degrees QTcB Int : 520 ms Atrial-sensed ventricular-paced rhythm Biventricular pacemaker detected Abnormal ECG Confirmed by DANA ZELAYA, KIMI ([id number]), editor sound ALLA VALENTIN ([id number]) on 02/20/2025 7:38:10 AM Referred By: ES/ER Confirmed By: KIMI CORTEZ MD
[2025-02-17 11:08] LABS: Anion Gap 10 (5-15); BUN 15 mg/dL (4-19); BUN/Creat Ratio 16.5 RATIO (10-20); Calcium,Total 8.9 mg/dL (7.6-11.0); Carbon Dioxide 23.1 mmol/L (21.0-32.0); Chloride 104 mmol/L (98-108); Estimated Creatinine Clearance 94.28 ml/min (50-250); Glucose 142 mg/dL (70-99); Potassium 3.8 mmol/L (3.3-5.1); Pro- Brain NATRIURETIC PEPTIDE 439 pg/mL (<=450); Troponin T High Sensitivity 15 ng/L (<=14)
[2025-02-17 11:14] VITALS: BP 111/76; PULSE 84; RESP 17; O2SAT 99
[2025-02-17 12:00] VITALS: BP 107/76; PULSE 84; RESP 17; O2SAT 96
[2025-02-17 13:00] VITALS: BP 98/70; PULSE 83; RESP 19; O2SAT 99
[2025-02-17 13:10] LABS: Troponin T High Sens 2 HR 12 ng/L (<=14)
--- NOTE | 2025-02-17 13:25 | CM.ED ---
Social Work Date of referral: 02/17/25 Reason for referral: No Advanced Care Directives (ACD's) on file. Referred by: Social Work Identification Patient provided consent to social work visit. Patient agreed to bring in a copy of ACD's. Patient stated she's worried she may not have filled them out correctly so social services assistant provided patient with a written brochure on the number to call and schedule an appointment through [facility] who can assist if desired which patient expressed appreciation for. Natacha Hoang, AUTOMOTIVE SALES REPRESENTATIVE, CIRCUS TRAINER
[2025-02-17 13:59] VITALS: BP 104/77; PULSE 81; RESP 14; TEMP 36.6; O2SAT 100
== END 2025-02-17 14:17 | disposition home or self-care (01) ==
PROVIDERS: Emergency Provider Student in an Organized Health Care Education/Training Program; PCP Internal Medicine; Visit Provider Student in an Organized Health Care Education/Training Program
DX: R07.89 Other chest pain (principal); I44.2 Atrioventricular block, complete; F41.0 Panic disorder [episodic paroxysmal anxiety]; F43.10 Post-traumatic stress disorder, unspecified; G25.81 Restless legs syndrome; Z79.82 Long term (current) use of aspirin; Z79.899 Other long term (current) drug therapy; Z95.810 Presence of automatic (implantable) cardiac defibrillator
CPT/HCPCS: 71275; 74174; 80048; 83880; 84484; 85025; 93005; 99284; Q9967; A4216

== ENCOUNTER 2025-02-18 23:45 | Emergency (ER) | payer MEDICAID, SELFPAY ==
[2025-02-18 23:47] VITALS: BP 120/77; PULSE 97; RESP 18; TEMP 36.2; O2SAT 98; BMI 31.4
[2025-02-19 00:25] LABS: Hematocrit 37.3 % (37-47); Hemoglobin 11.8 g/dL (12.0-15.0); Immature Granulocytes Count 0.020 X10^3/uL (0.0-0.0); Mean Corp Hgb Conc 31.6 g/dL (32-36); Mean Corpuscular Volume 85.6 fL (81-99); Mean Platelet Vol. 11.5 fl (6.2-12.0); NRBC Flagged by Analyzer 0 % (0-5); Platelet Count 168 K/mm3 (150-450); RBC Distribution Width CV 13.5 % (11.6-14.6); RBC Distribution Width SD 42.3 fl (35.1-43.9); Red Blood Count 4.36 M/mm3 (4.2-5.4); White Blood Count 7.8 K/mm3 (4.4-11.0)
[2025-02-19 00:30] LABS: Mucous, Urine 0 SEEN /hpf (<or=2+); Red Blood Cells-Urine 0 SEEN /hpf (0-5)
[2025-02-19 00:31] LABS: Color, Urine Yellow (Yellow); Glucose, Dipstick Normal (Normal); Ketone-Dipstick Negative (Negative); Leukocyte Esterase-Dipstick Negative /ul (Negative); Nitrite-Dipstick Negative (Negative); Occult Blood-Urine Negative /ul (Negative); Protein-Dipstick 15 mg/dl (Negative); Specific Gravity, Urine 1.015 (1.002-1.030); Urine Bilirubin Dipstick Negative (Negative)
[2025-02-19 00:43] LABS: Squamous Epithelial Cells - UA 0-5 SEEN /hpf (5-10)
[2025-02-19] MEDS: 0.9% Normal Saline (1000mL) 1,000 ML 999 ML IV (00:47)
[2025-02-19 01:02] LABS: AST(SGOT) 15 U/L (<=31); Alanine Aminotransfer ALT/SGPT 18 U/L (<=34); Albumin, Serum 3.7 g/dL (3.5-5.0); Alkaline Phosphatase 89 U/L (35-104); Anion Gap 10 (5-15); BUN 16 mg/dL (4-19); BUN/Creat Ratio 15.6 RATIO (10-20); Bilirubin, Direct 0.14 mg/dL (0.00-0.30); Calcium,Total 8.7 mg/dL (7.6-11.0); Carbon Dioxide 23.2 mmol/L (21.0-32.0); Chloride 105 mmol/L (98-108); Estimated Creatinine Clearance 85.59 ml/min (50-250); Globulin 2.3 g/dL (2.2-4.2); Glucose 146 mg/dL (70-99); Lipase 54 U/L (13-75); Potassium 3.8 mmol/L (3.3-5.1)
--- NOTE | 2025-02-19 01:10 | CT_ITS ---
PROCEDURE: CTA CHEST W/WO CONTRAST 02/18/2025 REASON FOR EXAM: CHEST PAIN WITH INSPIRATION TECHNIQUE: Procedure Code: [id number] Modality: CT Procedure: CTA CHEST W/WO CONTRAST Multiplanar Sagittal and Coronal images were obtained. CONTRAST: 100 mL of Isovue 370 One or more dose reduction techniques were used (e.g., Automated exposure control, adjustment of the mA and/or kV according to patient size, use of iterative reconstruction technique). RADIATION DOSE SUMMARY: DLP: 830 mGycm COMPARISON: 02/17/2025 FINDINGS: Left chest pacer noted. PULMONARY ARTERIES: No evidence of pulmonary embolism. Stable high density linear structure/calcification within the left lower lobe segmental branch best seen on series 2, image 66 grossly unchanged. LUNGS AND PLEURA: No consolidations. Minimal pulmonary emphysema. No definite pulmonary edema. No mass or nodule. Mild left base effusion. No pneumothorax. MEDIASTINUM: No lymphadenopathy or mass. The heart shows no acute findings. The aorta shows no acute findings. The pulmonary trunk, and branches of the vessels in the mediastinum are within normal limits. SUPRACLAVICULAR AND AXILLARY: No abnormalities seen in these regions. No mass or significant lymphadenopathy. UPPER ABDOMEN: The visualized upper abdomen is unremarkable. BONES AND SOFT TISSUES: The ribs are unremarkable. Median sternotomy wires. The visualized spine shows no significant acute findings. No focal bony mass lesions noted. The subcutaneous soft tissues are unremarkable. Heterogenous right thyroid gland with 7 mm nodule, grossly stable. CT/CTA Chest W/WO Contrast IMPRESSION: No evidence of pulmonary embolism. Stable high density linear structure/calcification within the left lower lobe s egmental branch best seen on series 2, image 66 grossly unchanged. No focal consolidations. Minimal pulmonary emphysema. Mild left base effusion. Heterogenous right thyroid gland with 7 mm nodule, grossly stable Reading Location: [id number]
--- NOTE | 2025-02-19 01:51 | EDS_ITS ---
HPI History of Present Illness Chief Complaint: Chest Other Informant: patient Narrative Narrative: Patient is a 49-year-old female with past medical history of congenital complete heart block requiring pacemaker that then progressed to heart failure requiring ICD placement and mitral valve repair. This was completed roughly 5 weeks ago at [facility]. Patient states that she is now noticing pain along the left lower chest/rib cage region. She states that there has been no recent trauma or excessive activity. She states that she is only on a aspirin and denies any anticoagulation with Coumadin Xarelto Eliquis or antiplatelets such as Brilinta or Plavix. She was seen yesterday for this pain and underwent laboratory studies with a CTA of the chest abdomen and pelvis which revealed a left-sided pleural effusion but was otherwise negative. She states that she was prescribed pain medication and she also has muscle relaxers at home. She states she took the pain medication because of the pain but there was minimal improvement and secondary to the fact there was no resolution or real improvement after treatment this concerned her and therefore she presents for evaluation. [facility] Medical History Wears glasses Wears dentures Marijuana use Easy bruising Restless legs Migraine headache Heartburn Former smoker Sleep apnea History of edema History of echocardiogram Cardiology follow-up encounter History of pacemaker Iron deficiency anemia PTSD (post-traumatic stress disorder) Deliberate self-cutting Bulimia Panic anxiety syndrome History of complete heart block Home Medications ?Medication ?Instructions ?Recorded ?Last Taken ?Type lorazepam 0.5 mg tablet 0.5 mg PO DAILY PRN PRN Anxi ety 01/30/22 02/05/22 History aspirin 81 mg tablet,delayed 81 mg PO DAILY 01/20/25 0 01/20/25 History release furosemide 20 mg tablet 20 mg PO DAILY 01/20/2501/08 History furosemide 20 mg tablet (Lasix) 20 mg PO DAILY 5 days #5 tabs 01/20/25 Unknown Rx metoprolol succinate 25 mg 12.5 mg PO BID 01/20/25 History tablet,extended release 24 hr prednisone 20 mg tablet 60 mg (3 x 20 mg) PO DAILY # 15 01/27/25 Unknown Rx TABLETS lidocaine 5 % topical patch 1 patch topical DAILY #15 ea 02/17/25 Unknown Rx (Lidoderm) methocarbamol 500 mg tablet 500 mg PO BID #10 tabs 04/03 Unknown Rx oxycodone 5 mg capsule 5 mg PO Q8H PRN pain 3 days #10 02/17/25 Unknown Rx caps ondansetron 4 mg disintegrating 4 mg PO TID PRN nausea and 02/19/25 Unknown Rx tablet vomiting #21 tabs Allergy/AdvReac Type Severity Reaction Status Date / Time sertraline (From Zoloft) Allergy Mild Other Verified 02/18/25 23:47 morphine Allergy Itching Verified 02/18/25 23:47 tramadol Allergy Nausea Verified 02/18/25 23:47 Antihistamines - AdvReac Other Verified 02/18/25 23:47 Ethylenediamine naproxen AdvReac Other Verified 02/18/25 23:47 paroxetine HCl (From Paxil) AdvReac Other Verified 02/18/25 23:47 Family History Other Cardiac defibrillator in place Surgical History History of open heart surgery Hx of section History of endometrial ablation History of cardiac catheterization History of implantable cardiac defibrillator (ICD) Social History housing: house Smoking Status: Never smoker ROS ROS ED Constitutional Constitutional ED: Denies chills or fever(s) Eyes Eyes: Denies blurry vision or change in vision ENT ENT ED: Denies sore throat Cardiovascular Cardiovascular: Reports chest pain; Denies palpitations or racing heartbeat Respiratory/Chest Respiratory/Chest: Denies cough or dyspnea Gastrointestinal Gastrointestinal: Reports nausea; Denies abdominal pain or vomiting Genitourinary Genitourinary ED: Denies dysuria or hematuria Musculoskeletal Musculoskeletal: Denies back pain Integumentary Denies rash Neurologic Neurologic: Denies headache(s) Hematologic/Lymphatic Hematologic/Lymphatic: Denies easy bleeding or easy bruising EXAM Physical Exam Const Vital Signs: 02/18/25 23:47 02/19/25 01:52 Temperature 97.1 F L Temperature Source Temporal Pulse Rate 97 79 Respiratory Rate 18 16 Blood Pressure 120/77 97/68 Blood Pressure Mean 91 77 Pulse Ox 98 99 Oxygen Delivery Method Room Air Room Air Positive well nourished and well developed General Appearance ED: well developed HEENT HEENT Narrative: Normocephalic atraumatic Eyes PERRL and EOMs intact bilaterally General Eye ED: Negative for scleral icterus Neck supple and no JVD Chest Wall Chest Narrative: There is a scar to the anterior aspect of the left lower chest wall/rib cage consistent with her recent ICD and mitral repair surgery. The wound is clean dry and intact without secondary findings to suggest infection. There is pain with palpation over top the surgical scar and in the intercostal space. Patient reports this is the same pain she has been experiencing. There is no obvious induration or fluctuance to suggest infection and no overlying abrasions or ecchymosis. No crepitance palpated. Resp normal respiratory effort Resp Narrative: Breath sounds are diminished on the left with crackles in the left base consistent with left-sided pleural effusion but no signs of respiratory distress Cardio regular rate and regular rhythm GI normal to inspection, nondistended, normoactive bowel sounds, non-tender, non- distended and no masses GI Narrative: No voluntary guarding or rigidity or pulsatile mass. No peritoneal signs. No ecchymosis noted. Auscultation: normoactive bowel sounds Palpation: soft Back/Spine no CVA tenderness Extremity normal to inspection Neuro oriented x3, CN's II-XII intact bilaterally and no sensory deficits noted Sensorium / Orientation: alert Motor Exam: strength 5/5 throughout Psych Mood & Affect: anxious Skin Skin Narrative: Postsurgical wounds to the chest consistent with ICD and mitral valve repair that are overall clean dry and intact without secondary findings to suggest infection MDM MDM MDM Narrative Medical decision making narrative: Patient arrived to the ER with stable vitals. She was seen approximately 24 hours ago for the same symptoms and at that time had normal laboratory studies and a CTA of the chest abdomen and pelvis did not reveal any acute cause of pain. On my physical exam today the pain is in the anterior left lower chest wall/rib cage region at the same area she has a surgical scar present. There is no sign of secondary infection such as cellulitis or abscess at the site. There is no crepitance noted to suggest gas-forming gangrene or potentially pneum othorax or pneumomediastinum. She reported the pain was more intense today than it was at her previous visit. Therefore in order to ensure that she is not a pulmonary embolism that has developed in the last 24 hours or dissection or pneumothorax or pneumomediastinum I did elect to perform a repeat CTA of the chest. In order to assess for potential kidney stone or pyelonephritis a urine sample was ordered. A very small percentage of gallbladder dysfunction can cause left-sided abdominal pain so therefore liver enzymes and the lipase are added as well. The patient's blood work revealed no clinically significant findings and urine sample showed no blood going against kidney stone and no sign of infection going against pyelonephritis. The CTA documented a small/mild left-sided pleural effusion which has been present for the past month or so and consistent with her medical conditions but there is no finding of dissection or pneumonia or pneumothorax or pneumomediastinum. As the pain is very reproducible and over top the rib cage where she had a surgical scar this could be potentially scar tissue causing superficial nerve entrapment. The patient was advised to continue her normal medication but add lidocaine patches and/or [id number] topical creams such as Voltaren or IcyHot to see if this helps control pain. However at this time vitals are stable overall workup is negative and CT scan is not revealing signs of acute pathology such as pneumonia pneumothorax pneumomediastinum rib fracture or migration of her ICD wires and therefore there is no need for further intervention and she is otherwise safe for discharge with continued outpatient follow-up History & Record Review Discussion w/independent historian: Patient Lab Data Attestation: I reviewed the patient's lab results. Labs: Laboratory Results - last 24 hr 02/19/25 02/19/25 00:20 00:23 WBC 7.8 RBC 4.36 Hgb 11.8 L Hct 37.3 MCV 85.6 MCH 27.1 MCHC 31.6 L RDW Std Deviation 42.3 RDW Coeff of Hortencia 13.5 Plt Count 168 MPV 11.5 Immature Gran % (Auto) 0.300 Neut % (Auto) 67.2 Lymph % (Auto) 24.6 Wallace % (Auto) 5.9 Eos % (Auto) 1.5 Baso % (Auto) 0.5 Absolute Neuts (auto) 5.3 Absolute Lymphs (auto) 1.93 Nucleated RBC % 0 Sodium 138 Potassium 3.8 Chloride 105 Carbon Dioxide 23.2 Anion Gap 10 BUN 16 Creatinine 0.99 Estim Creat Clear Calc 85.59 Est GFR (MDRD) Non-Af 70 BUN/Creatinine Ratio 15.6 Glucose 146 H Calcium 8.7 Total Bilirubin 0.30 Direct Bilirubin 0.14 AST 15 ALT 18 Alkaline Phosphatase 89 Total Protein 6.0 Albumin 3.7 Globulin 2.3 Lipase 54 Urine Color Yellow Urine Clarity Clear Urine pH 6.0 Ur Specific [place] 1.015 Urine Protein 15 H Urine Glucose (UA) Normal Urine Ketones Negative Urine Occult Blood Negative Urine Nitrite Negative Urine Bilirubin Negative Urine Urobilinogen Normal Ur Leukocyte Esterase Negative Urine RBC 0 SEEN Urine WBC 0 SEEN Ur Squamous Epith Cells 0-5 SEEN Urine Bacteria 0 SEEN Urine Mucus 0 SEEN Radiography Diagnostic Testing: Clinical Impression(s) from Imaging Studies Chest CTA 02/19/25 01:10 IMPRESSION: No evidence of pulmonary embolism. Stable high density linear structure/calcification within the left lower lobe segmental branch best seen on series 2, image 66 grossly unchanged. No focal consolidations. Minimal pulmonary emphysema. Mild left base effusion. Heterogenous right thyroid gland with 7 mm nodule, grossly stable Reading Location: [facility] Discharge Plan Triage Chief Complaint: Chest Other ED Provider: Trevor Leiva Dx/Rx/DC Orders Clinical Impression: Chest pain of uncertain etiology, Complete heart block, Congestive heart failure Instructions: ED Chest Pain, Uncertain Cause Prescriptions: New ondansetron 4 mg tablet,disintegrating 4 mg PO TID PRN (Reason: nausea and vomiting) Qty: 21 1RF No Action lorazepam 0.5 mg tablet 0.5 mg PO DAILY PRN PRN (Reason: Anxiety) lidocaine [Lidoderm] 5 % adhesive patch,medicated 1 patch topical DAILY Qty: 15 0RF Rx Instructions: leave on most painful area for up to 12 hrs methocarbamol 500 mg tablet 500 mg PO BID Qty: 10 0RF oxycodone 5 mg capsule 5 mg PO Q8H PRN (Reason: pain) 3 Days Qty: 10 0RF furosemide 20 mg tablet 20 mg PO DAILY metoprolol succinate 25 mg tablet extended release 24 hr 12.5 mg PO BID aspirin 81 mg tablet,delayed release (DR/EC) 81 mg PO DAILY furosemide [Lasix] 20 mg tablet 20 mg PO DAILY 5 Days Qty: 5 0RF prednisone 20 mg tablet 60 mg PO DAILY Qty: 15 0RF Other Ambulatory Orders: Gallbladder (Routine) Facility: [facility] - Location: [facility] Ordered By: Dr. Trevor Leiva Primary Care Provider: Mihir Glover Referrals: Mihir Glover MD [Primary Care Provider, Internal Medicine] Activity Restrictions/Additional Instructions: Your blood work revealed no clinically significant findings today. Your urine sample does not show signs of blood going against kidney stone nor other signs of infection. The CTA of your chest shows a small/mild left-sided pleural effusion which has been there on the previous visits and is most likely just chronic and not the cause of your symptoms. There is no documented rib fracture pneumothorax/hole in your lung or dissection/tear. A very small percentage of gallbladder dysfunction can be felt in the left upper abdomen. Therefore please obtain your outpatient gallbladder ultrasound to rule this out. Continue all the medication you have been prescribed from your doctor and follow-up with them to discuss further testing and treatment option. Return to the ER should you have any further concerns Print Language: Danish Disposition Disposition: Home, Self Care
[2025-02-19 01:52] VITALS: BP 97/68; PULSE 79; RESP 16; O2SAT 99
[2025-02-19 02:19] VITALS: BP 110/77; PULSE 75; RESP 16; TEMP 36.6; O2SAT 99
== END 2025-02-19 02:20 | disposition home or self-care (01) ==
PROVIDERS: Emergency Provider Emergency Medicine; PCP Internal Medicine; Visit Provider Emergency Medicine
DX: R07.89 Other chest pain (principal); I50.9 Heart failure, unspecified; I44.2 Atrioventricular block, complete; K82.8 Other specified diseases of gallbladder; F41.0 Panic disorder [episodic paroxysmal anxiety]; F43.10 Post-traumatic stress disorder, unspecified; Z95.2 Presence of prosthetic heart valve; Z95.810 Presence of automatic (implantable) cardiac defibrillator; Z79.82 Long term (current) use of aspirin; Z79.899 Other long term (current) drug therapy; Z87.891 Personal history of nicotine dependence
CPT/HCPCS: 71275; 80048; 80076; 81001; 83690; 85025; 96361; 96374; 96376; 99283; Q9967; A4216; J2405

== ENCOUNTER → 2025-03-23 | Outpatient (CLI) | payer MEDICAID, SELFPAY ==
--- NOTE | 2025-03-23 10:05 | US_ITS ---
PROCEDURE: ABDOMEN LIMITED 03/23/2025 REASON FOR EXAM: ABDOMINAL PAIN TECHNIQUE: Procedure Code: USABDL Modality: US Procedure: ABDOMEN LIMITED COMPARISON: CT abdomen and pelvic study dated 02/17/2025 FINDINGS: Liver: Liver measures 15.3 cm. Size contour and echogenicity are within normal limits. No intrahepatic masses or intrahepatic biliary ductal dilatation is seen. There is hepatopetal flow in the portal vein. Hepatic flow is demonstrated. Gallbladder: 6.8 cm. There are no stones or sludge seen within the gallbladder. The gallbladder wall is not thickened measuring 3 mm. There is no pericholecystic fluid. There was a negative sonographic Bah's sign. Common bile duct measures 4 mm. Common bile duct: 4 mm . Pancreas: Size, contour, and echogenicity are within normal limits. No pancreatic masses are noted. The pancreatic duct is not dilated. Kidneys: The right kidney measures 9.6 x 4.6 x 4.3 cm. The size, contour, and echogenicity are within normal limits. There are no stones, masses or hydronephrosis. US/Abdomen Limited IMPRESSION: Unremarkable limited right upper quadrant abdominal ultrasound exam. Reading Location: [id number]
== END | disposition home or self-care (01) ==
LOC: US 10:04
PROVIDERS: PCP Internal Medicine; Referring Provider Emergency Medicine; Visit Provider Emergency Medicine
DX: R10.9 Unspecified abdominal pain (principal)
CPT/HCPCS: 76705

== ENCOUNTER → 2025-04-17 | Outpatient (CLI) | payer MEDICAID, SELFPAY ==
--- NOTE | 2025-04-17 09:56 | PCM.CR.HP2 ---
CR - History & Physical General Arrival date:: 04/17/25 Arrival time:: 09:56 Date of Referral:: 03/28/25 Date of CR Evaluation:: 04/17/25 Referring Physician: Dr. Thacker Primary Diagnosis: S/P MVR History of Present Cardiac Event Onset Date Heart valve replacement or repair:: Yes (onset 01/09/25) Medications Ambulatory Orders ?Medication ?Instructions ?Recorded lorazepam 0.5 mg tablet 0.5 mg PO DAILY PRN PRN Anxiety 01/30/22 aspirin 81 mg tablet,delayed 81 mg PO DAILY 01/20/25 release furosemide 20 mg tablet 20 mg PO DAILY 01/20/25 furosemide 20 mg tablet (Lasix) 20 mg PO DAILY 5 days #5 tabs 01/20/25 metoprolol succinate 25 mg 12.5 mg PO BID 01/20/25 tablet,extended release 24 hr prednisone 20 mg tablet 60 mg (3 x 20 mg) PO DAILY #15 01/27/25 TABLETS lidocaine 5 % topical patch 1 patch topical DAILY #15 ea 02/17/25 (Lidoderm) methocarbamol 500 mg tablet 500 mg PO BID #10 tabs 02/17/25 oxycodone 5 mg capsule 5 mg PO Q8H PRN pain 3 days #10 02/17/25 caps ondansetron 4 mg disintegrating 4 mg PO TID PRN nausea and 02/19/25 tablet vomiting #21 tabs Allergies Allergies sertraline (From Zoloft) Allergy (Mild, Verified 02/18/25 23:47) Other palpitations morphine Allergy (Verified 02/18/25 23:47) Itching tramadol Allergy (Verified 02/18/25 23:47) Nausea Antihistamines - Ethylenediamine Adverse Reaction (Verified 02/18/25 23:47) Other naproxen Adverse Reaction (Verified 02/18/25 23:47) Other paroxetine HCl (From Paxil) Adverse Reaction (Verified 02/18/25 23:47) Other Sleep Disorder Evaluation Hx of Sleep Apnea: No Do you snore loudly (louder than talking or can be heard through closed doors)?: No Do you often feel tired/ fatigued/ sleepy during daytime?: No Has anyone observed you stop breathing during sleep?: No History of Hypertension (for STOP score): No STOP Results: Negative Advanced Directives Advanced Directives Do you have a Healthcare Power of Passenger Representative?: Yes Living Will: Yes Advance Directives Information Provided: No Advance Directives on File: No DNR Order?:: No Past Medical History Covid-19 Screening Physicial Symptoms Other Clinical Concerns Exposure Risk Pertinent Comorbidities Has a serious heart condition:: Yes Past Medical Illness Medical History Wears glasses Wears dentures Marijuana use Easy bruising Restless legs Migraine headache Heartburn Former smoker Sleep apnea History of edema History of echocardiogram Cardiology follow-up encounter History of pacemaker Iron deficiency anemia PTSD (post-traumatic stress disorder) Deliberate self-cutting Bulimia Panic anxiety syndrome History of complete heart block Past Surgical History Surgical History History of open heart surgery Hx of section History of endometrial ablation History of cardiac catheterization History of implantable cardiac defibrillator (ICD) Surgical History: - (Reviewed) Family History Summary Family History Other Cardiac defibrillator in place Social History Smoking History Smoking Status: Former smoker Years Smokin Packs Smoked per Day: 2.5 (stopped 4-5 years ago) Alcohol Use Alcohol Usage: No Occupation Occupation (List type of work in comments):: Unemployed (disability) Social Environment Status Marital Status: Single (has a roommate) Children How many children do you have?: 3 Do any of your children live nearby?: No Safety Do you feel safe in your surroundings?: Yes Assistance Do you need any assistance at home?: no Review of Systems Review of Systems Hints Review of Present Symptoms: Reports Operative Discomfort, Dizziness/Lightheadedness, Fatigue, Heart Arrhythmia/Irregularities, Appetite - Normal and Appetite - Special Diet; Denies Shortness of Breath at Rest, Shortness of Breath with Exertion, PVD, Angina, Wound Healing, Sleep - Normal or Sexual Changes Pain Is Patient Pain Free?: Yes Risk Factor Assessment Chief Complaint Chief Complaint: MVR Vital Signs Pulse Ox: 98 Blood Pressure: 100/70 Pulse Pulse Rate: 76 Pulse Rhythm: Regular Hypertension How long have you been treated?: since SX Blood Pressure Sitting - Right Arm: 100/70 Stress Stress: Long-standing (mental) Obesity Height: 5 ft 9.5 in Weight:: 219 lb Weight in Pounds: 219.0 lbs Body Mass Index (BMI): 31.8 Physical Inactivity Physical Inactivity: None Risk Stratification Risk Guidelines: Moderate Risk: Risk Factor for Smoking, Risk Factor for Dyslipidemia, Risk Factor for Diabetes, Risk Factor for Obesity, Risk Factor for Hypertension and Risk Factor for Sedentary Lifestyle and Highest Risk: Risk Factor for Depression For Smoking Smoking Risk Guidelines For Dyslipidemia Dyslipidemia Risk Guidelines For Diabetes Mellitus Diabetes Risk Guidelines For Obesity/Overweight Obesity/Overweight Risk Guidelines For Hypertension Hypertension Risk Guidelines For Sedentary Lifestyle Sedentary Lifestyle Risk Guidelines For Depression Depression Risk Guidelines Family History Family History Other Cardiac defibrillator in place Motivation Motivation to Participate On a scale of 1 to 10, how prepared are you to commit to attending program?: 9 What do you see as barriers to successfully being able to complete the program?: nothing What do you see as the benefits of succesfully completing the program? In other words, what do you hope to get out of participating in the program?: more energy, confidence Are there issues you are dealing with that will interfere with completing the program?: no Do you have a spouse or signficant other, family or friends who will help support you to complete the program?: rommate
[2025-04-17 10:17] VITALS: BP 100/70; PULSE 76; O2SAT 98
--- NOTE | 2025-04-17 10:42 | CR.ITP_ITS ---
Diagnosis General Information Admitting Diagnosis: MVR Personal Learning Style:: Audio/Visual Barriers to Learning: Mental Status Stage of change r/t lifestyle modifications:: Contemplation Gave educational material for:: Treating Heart Disease, How The Heart Works, What it means to have Heart Disease, How Coronary Artery Disease is Diagnosed, Heart Procedures, What Heart Medications Do, Risk Factors & Modifications, Living an Active Life, Nutrition, Emotions & Heart Disease, Stress Management & Relaxation and Sleep Disorders & Heart Disease Education/Goals Cardiac Rehabilitation Goals Personal Goals: Initial Assessment: Improve management of stress and emotions, Improve energy level, Participate in home exercise program, Improve muscle strength and endurance and Control risk factors (learn risk factor modification) Scale for measuring improvement of personal goals Diagnosis & Disease Process Outcomes/Goals: Pt IDs own risk factors & lifestyle modifications by Session 10, Verbalizes symptoms of angina & response by session 3., Pt independently manages and Other Additional Outcomes/Goals: Plan/Interventions: Assist Pt to ID & engage in lifestyle modification to reduce CVD risk, Instruct on individual risk factors, Review symptoms of angina & emergency actions, Review secondary diagnosis & identify educational needs. and Other see comment 30 day Reassessments:: Not Met 30 day Reassessments:: Not Met 30 day Reassessments:: Not Met 30 day Reassessments:: Not Met Final Reassessments:: Not Met Safety Referral to Physical Therapy: No Referral to [facility] Case Management: No Fall Risk Assessed:: Yes Assistive Devices:: None Exercise - Initial Assessment Visit Date of Eval: 04/17/25 (initial eval) Mets: Pre-: >3 METS for 30 minutes by discharge, >5 METS for 30 minutes by discharge, >7 METS for 30 minutes by discharge and Unable to meet goal due to: (see comment below) Physician Prescribed Exercise Modalities: Treadmill, Rower, Schwinn Airdyne AD-7, SciFit Stepper, SciFit Pro- II Ergometer and SciFit Lateral Insurance Claims Representative Frequency: 3x/week for 12 weeks [36 sessions] Intensity: 60-80% of age predicted maximum heart rate reserve Duration: 30 - 45 minutes Current METSs:: 3 Target Heart Rate:: 103-128 Resting Blood Pressure: 100/70 EKG Type: Atrial sensed ventricular paced rhythm Outcomes & Goals Goals:: Verbalizes understanding of THR, RPE & goal METS by session 6, Documents in home exercise log/reports 30 min aerobic 5 day/wk by DC, Demonstrates accurate pulse taking by DC and Other additional outcome/goals: see below Intervention & Plan Exercise Program Goals: Instruct on personal THR & RPE, Instruct on MET level & personal MET goal, Show patient to take own pulse /validate performance until accurate, Instruct on home exercise and Other additional plan/int Physical Activity Home Exercise Physical Activity - Home Exercise: Safe Exercise, Warm-up, Self-monitoring, Cool-Down, Home Exercise > 30 min Daily and Sitting Time <3 hours/daily Outcomes & Goals Outcomes/Goals: Demonstrates correct Warm-up/exercise Cool-Down (S3) if = 2.5 METs, Verbalizes symptoms of exercise intolerance by Session 3 (S3), Demonstrate safe equipment use (S3) & follows exercise prescrition (6) and Other: See below Intervention & Plan Plan/Intervention: Instruct warm-up & cool-down if exercising at > 2 METs, Instruct on symptoms of exercise intolerance & actions to take, Instruct & monitor on saf, Assess intial functional capacity & safety risk and Other See below Nutrition - Initial Assessment Program Goals Nutrition Program Goals Patient has diagnosis of Hyperlipidemia (ICD E78)?: No Visit Date of Eval: 04/17/25 (initial eval. Nutrition survey score of 3.) Cholesterol/Lipids (Other Core Measures) Determine presence & major risk factors that modify LDL goal: Cigarette smoking, Hypertension or hypertensive medication, Low HDL cholesterol <40 mg/dL*, Family history of premature CHD in Male < 55 years: female <65 yearsFa and Age men > 45 years; women >/= 55 years Outcomes/Goals: Pt IDs own risk factors & lifestyle modifications by Session 10, Verbalizes symptoms of angina & response by session 3., Pt independently manages and Other Additional Outcomes/Goals: Intervention/Plan: Advocate for lipid panel cholesterol medication if applicable, Instruct on personal lipid levels & lipid goals/NCEP guidelines, Instruct on cholesterol and Other additional plan/int Diabetes (Other Core Measures) Diabetes Type: Not Applicable Weight Mgt (Other Care) Height: 5 ft 9.5 in Weight:: 219 lb BMI: 31.8 Diagnosis Overweight/Obesity BMI> 30% ICD-10 E66: Yes Diagnosis High BMI/Morbid Obesity BMI> 35% ICD-10 Z68: No Outcomes/Goals: Pt sets, maintains & shows weight loss goal & trend during rehab and Other additional outcomes/goals Intervention/Plan: Instruct on ideal BMI & set weight loss goal w/patient, Assist pt to ID & incorporate diet changes for weight loss by S9, Refer to Structured Weight Loss program as appropriate, Encourage goal of using 250- 300dcal per session for weight loss and Other additional plan/interventions Healthy Eating Habits Will attend diet classes:: Yes Outcomes/Goals:: Consume diet rich in vegs,fruits,whole grain/high fiber,fish,lean meat, Limit sat/trans fats,cholesterol & added salts & sugars and Other additional outcome/goals: Intervention/Plan:: Assess current eating habits and Other Additional plan/interventions Education Gave educational materials for:: Signs & symptoms of hypoglycemia, Signs & symptoms of hyperglycemia and Healthy eating Core - Initial Assessment Visit Date of Eval: 04/17/25 (initial eval) Medication Compliance Preventative Medication(s):: Aspirin, Beta óscar and ARB (Angiotensi Rcap) H/O mental health issues: depression, anxiety, or addiction?: Yes Doesn?t believe in the benefits of treatment?: No Believes medications are unnecessary or harmful?: No Has a concern about medication side effects?: No Expresses concern over the cost of medications?: No Outcomes/Goals: Verbalizes medications,desired effect & common side effects @ DC, Pt self-reports following medication regimen, Keeps card in wallet w/medications listed by DC and Other additional outcome/goals: Interventions/plans: Instruct on medication effects & side effects, Review medication list w/patient every two weeks, Instruct importance of taking meds as ordered & assist problem solving and Other additional Tobacco Use Tobacco Use: Non-smoker How many cigarettes do you smoke per day?: 50 Years Smokin (Pt stopped 4-5 years ago.) Outcomes/Goals: Smoking cessation achieved or maintained by discharge, Identify aids/strategies for achieving smoking cessation by session 6 and Other additional outcome/goals Interventions/plan: Instruct on effects of smoking & provide smoking cessation resource, Assist pt to set quit date & provide encouragement, Assist pt to develop strategies to achieve/maintain quit date, Assist pt w/nicotine replacement & medication for cessation success and Other additional plan/interventions Hypertension Resting Blood Pressure:: 100/70 [place] [employer] Hypertension Guidelines Outcomes/Goals: Able to verbalize/achieve optimal blood pressure <130/80, Incorporates diet changes & exercise for blood pressure control by DC and Other additional outcomes/goals Interventions/plan: Instruct on optimal blood pressure, hypertension & medications, Instruct on effects of sodium, alcohol, stress, exercise &hypertension and Other additional plan/interventions Tobacco Cessation Referral Smoking Cessation Referral:: No Individual Education/Counseling:: No Education Schedule Given:: Yes Psychosocial - Initial Assess VIsit Date of Eval: 04/17/25 (initial eval) History of previous Mental disease:: Yes (Pt states she is on medication and sees a counselor every Wednesday. ) History of Emotional Disorders: Anxious and Depression (PTSD) Psychosocial Test Tool Used:: [employer] QOL Cardiac and PHQ-9 Questionnaire phq-9 Severity See PHQ-9 Score: 14 (Pt is on medication and sees a counselor) Referral to Behavioral Health PS - Interventions: Yes: Attend Stress Management Classes Outcomes/Goals: See list Psychosocial Outcomes/Goals:: ID's personal stressors & 2 strategies to manage stress by discharge and Other Additional outcome/goals: Intervention/Plan: See List Interventions/Plan:: Assess stressors,coping strategies & signs of derpression on admission, Instruct/assist pt to develop coping & personal stress Mgt strategies, Refer to Behavioral Health if appropriate, Refer to Physician if appropriate, Instruct patient to recognize signs & symptoms of depression, Instruct patient to recog and Other additional plan/intervention Exercise - 30-day Assessment Physician Prescribed Exercise Modalities: Treadmill, Rower, Schwinn Airdyne AD-7, SciFit Stepper, SciFit Pro- II Ergometer and SciFit Lateral Insurance Claims Representative Exercise - 60-day Assessment Physician Prescribed Exercise Modalities: Treadmill, Rower, Schwinn Airdyne AD-7, SciFit Stepper, SciFit Pro- II Ergometer and SciFit Lateral Insurance Claims Representative Exercise - 90-day Assessment Physician Prescribed Exercise Modalities: Treadmill, Rower, Schwinn Airdyne AD-7, SciFit Stepper, SciFit Pro- II Ergometer and SciFit Lateral Steen Exercise - Final/Discharge Physician Prescribed Exercise Modalities: Treadmill, Rower, Schwinn Airdyne AD-7, SciFit Stepper, SciFit Pro- II Ergometer and SciFit Lateral Steen Frequency: 3x/week for 12 weeks [36 sessions] Intensity: 60-80% of age predicted maximum heart rate reserve Current METSs:: 3 Target Heart Rate:: 103-128 Nutrition - 30-Day Assessment Weight Mgt (Other Care) Height: 5 ft 9.5 in Weight:: 219 lb BMI: 31.8 Nutrition - 60-Day Assessment Weight Mgt (Other Care) Height: 5 ft 9.5 in Weight:: 219 lb BMI: 31.8 Core - 30-Day Assessment Tobacco Use Years Smokin (Pt stopped 4-5 years ago.) Core - Final Assessment Hypertension Resting Blood Pressure:: 100/70 [place] [employer] Hypertension Guidelines Core - 60-Day Assessment Hypertension Resting Blood Pressure:: 100/70 [place] [employer] Hypertension Guidelines Psychosocial - 30-Day Assess Referral to Behavioral Health PS - Interventions: Yes: Attend Stress Management Classes Psychosocial - 60-Day Assess Referral to Behavioral Health PS - Interventions: Yes: Attend Stress Management Classes Psychosocial - 90-Day Assess Referral to Behavioral Health PS - Interventions: Yes: Attend Stress Management Classes Psychosocial - Final Assessmen Psychosocial Test phq-9 Severity See PHQ-9 Score: 14 (Pt is on medication and sees a counselor) Referral to Behavioral Health PS - Interventions: Yes: Attend Stress Management Classes Nutrition - 90-Day Assessment Weight Mgt (Other Care) Height: 5 ft 9.5 in Weight:: 219 lb BMI: 31.8 Nutrition - Final Assessment Program Goals Patient has diagnosis of Hyperlipidemia (ICD E78)?: No Weight Mgt (Other Care) Height: 5 ft 9.5 in Weight:: 219 lb BMI: 31.8
[2025-04-17 10:52] VITALS: BP 100/70; BMI 31.8
[2025-04-17 10:53] VITALS: BMI 31.8
== END | disposition home or self-care (01) ==
PROVIDERS: PCP Internal Medicine
DX: Z98.890 Other specified postprocedural states (principal)

== ENCOUNTER 2025-05-07 11:15 | Outpatient (RCR) | payer MEDICAID, SELFPAY ==
[2025-04-17 10:52] VITALS: BMI 31.8
== END 2025-05-09 23:59 ==
LOC: CR 11:15
PROVIDERS: PCP Internal Medicine
DX: Z98.890 Other specified postprocedural states (principal)
CPT/HCPCS: 93798